=== PATIENT | female | born 1945 | race Caucasian/White ===

== ENCOUNTER → 2016-06-09 | Outpatient (CLI) | payer OTHER ==
[~2016-06-09] MED LIST: ACET-1311 PO; ADVIN25/60 INH; AMOX500C3 PO; BUME2TAB3 PO; CALC-51 PO; CALC0.2510 PO; CETI10TA84 PO; CHOL2000 PO; CHOL400T; CLR10 PO; CRAN1CAP15 PO; FERR1TAB62 PO; FLUT0.15 NAE; HYDR-3983 PO; HYDR-4079 PO; HYDR-5688 PO; LBT/300 PO; LIDOCAINE PATCH TOP; MISCCAP80 PO; NRN100 PO; NVLGI/PEN SQ; NYST1POW7 TOP; OMEP40CA41 PO; OXCA1TAB28 PO; PRLSR20 PO; PROM25TA9 PO; TRL300 PO; WARF-246 PO; WARF-281 PO; WARF4TAB PO; WARF5TAB90 PO
[2016-06-09 11:52] LABS: INR 2.1 (0.9-1.1); PROTHROMBIN TIME (PATIENT) 23.2 SECONDS (9.0-12.0)
== END | disposition home or self-care (01) ==
LOC: EDBD → C.LABSPEC 11:06
PROVIDERS: ATTEND Internal Medicine
DX: I48.91 Unspecified atrial fibrillation (principal)

== ENCOUNTER → 2016-06-23 | Outpatient (CLI) | payer OTHER ==
[~2016-06-23] MED LIST changes: -AMOX500C3 PO; -FERR1TAB62 PO; +FERR325T PO; -WARF-281 PO
[2016-06-23 12:15] LABS: INR 2.3 (0.9-1.1); PROTHROMBIN TIME (PATIENT) 25.5 SECONDS (9.0-12.0)
== END | disposition home or self-care (01) ==
LOC: EDBD → C.LABSPEC 11:41
PROVIDERS: ATTEND Internal Medicine
DX: I48.91 Unspecified atrial fibrillation (principal)

== ENCOUNTER → 2016-06-30 | Outpatient (CLI) | payer OTHER ==
[2016-06-30 10:14] LABS: PROTHROMBIN TIME (PATIENT) 22.1 SECONDS (9.0-12.0)
== END | disposition home or self-care (01) ==
LOC: EDBD → C.LABSPEC 09:38
PROVIDERS: ATTEND Internal Medicine
DX: I48.91 Unspecified atrial fibrillation (principal)

== ENCOUNTER → 2016-07-14 | Outpatient (CLI) | payer OTHER ==
[2016-07-14 11:12] LABS: PROTHROMBIN TIME (PATIENT) 21.6 SECONDS (9.0-12.0)
--- NOTE | 2016-07-28 13:54 | CODING QUERY NO DIAGNOSIS ---
Valid Physician Order Needed A valid physician order must be submitted in order to properly bill for the service(s) provided, including date of service(s), valid diagnosis, and physician signature. If these tests are done on a recurring basis the original physican order must be submitted in order to code and bill for the service(s) provided. Please fax us the original, signed physician order so that we may expedite billing to [phone] DOS 07/14/16 * PT/INR ORDERED BY DR. BAXTER Thank you Kandis [facility] Information Management
== END | disposition home or self-care (01) ==
LOC: EDBD → C.LABSPEC 10:08
PROVIDERS: ATTEND Internal Medicine
DX: L89.610 Pressure ulcer of right heel, unstageable (principal); I48.91 Unspecified atrial fibrillation; I13.2 Hypertensive heart and chronic kidney disease with heart failure and with stage 5 chronic kidney disease, or end stage renal disease; I50.9 Heart failure, unspecified

== ENCOUNTER → 2016-08-05 | Outpatient (CLI) | payer OTHER ==
--- NOTE | 2016-08-05 23:26 | PAP/PSG TECHNICIAN REPORT ---
[facility] Evaluation Specialist Polysomnogram Report Study name: None Report date: 08/05/2016 Study date: 08/05/2016 Referring Physician: Stanton Stephen M.D. Name: BEST KEVIN Evelyn Interpreting Physician: Stanton Stephen M.D. Date of : 1945 Evaluation Specialist: Ramona Berg RPS. Sex: Female Age: 71 StudyType: PSG Weight: 283 lbs Height: 71 years, Height 5' 0" Neck Circum: BMI: 55.26 Medications: See list in chart Patient History 71 yr. old female here for a new titration sleep study. Patient had a HST on 03/25/16 that showed an AHI of 21. Patients [place] sleepiness scale score is 9/24. Parameters Monitored NPSG: E1-M2, E2-M1, Fp1-M2, Fp2-M1, F3-M2, F4-M2, F4-M1, C3-M2, C4-M2, C4-M1, O1-M2, O2-M2, O2-M1, T3-M2, T4-M1, P3-M2, P4-M1, CHIN1, CHIN2, HR, EKG, Legs, PFLOW, SNOR, FLOW, CFLOW, Tidal Volume, THOR, ABDO, SpO2, PLTH, CPRESS, ETCO2 Wave, ETCO2, pH Sleep Architecture Sleep Stages Time at Lights Off 11:01:15 PM STAGES Time (min.) TST (%) Time at Lights On 11:24:45 PM Wake 9.5 -- Total Recording Time (TRT) 22.00 min. N1 5.0 40 Total Sleep Period (TSP) 18.0 min. N2 7.5 60 Total Sleep Time (TST) 12.5min. N3 0.0 0 Awake Time 9.5 min. REM 0.0 0 Wake after Sleep Onset 7.0 min. Sleep Efficiency (SE) 57 % Sleep Onset Latency (MERCEDES) 4.0 min. Number of Stage 1 Shifts None Awakenings 2 Stage Changes 9 Number of REM periods N/A REM 0.0 0 REM Latency NONE min. NREM 12.5 100 Body Position Analysis Supine Right Left Side Prone Vertical Total Sleep Time (min.) 22.0 0.0 0.0 0.00 0.0 0.0 Total Sleep Time (%) 100% 0% 0% 0 0% N/A% Total Sleep Time REM (min.) 0.0 0.0 0.0 None 0.0 0.0 Total Sleep Time NREM (min.) 12.5 0.0 0.0 None 0.0 0.0 Intermittent Wake (min.) 9.5 0.0 0.0 None 0.0 0.0 Total Sleep Period (%) 100% None None None None None Arousals Myoclonus (PLM) * Events Count Index Events Count Index Spontaneous 3 14 Events Awake (PLMW) 3 18.9 Respiratory 0 0.0 Events Asleep w/ Arousal (PLMA) 1 4.8 PLM 1 5 Events Asleep w/o Arousal (PLMS) 3 14.4 Snoring 0 0 Total Asleep 4 19.2 Total 4 19 Total 7 19 Respiratory Analysis * CA OA MA CH H RERA Total Count 0 0 0 0 0 0 0 Index 0.0 0.0 0.0 0 0.0 0 0.0 Mean Duration 0.0 0.0 0.0 0.00 0.0 0.0 0.0 Longest Duration 0.0 0.0 0.0 0.00 0.0 0.0 0.0 Respiratory Event Summary Total Supine ~Supine Right Left Prone REM NREM Apneas Count 0 0 N/A N/A N/A N/A N/A 0 Index 0.0 0 N/A N/A N/A N/A N/A 0 Hypopneas (4% Desat) Count 0 0 N/A N/A N/A N/A N/A 0 Index 0.0 0.0 N/A N/A N/A N/A N/A 0.0 Apneas & All Hypopneas Count 0 0 N/A N/A N/A N/A N/A 0 Index 0.0 0 N/A N/A N/A N/A N/A 0.0 Respiratory Events (Sustainability Coach+All Hyp+RERA) Count 0 0 N/A N/A N/A N/A N/A 0 Index 0.0 0 N/A N/A N/A N/A N/A 0.0 Respiratory Related Arousal Count 0 0 N/A N/A N/A N/A N/A 0 Index 0.0 0 N/A N/A N/A N/A N/A 0 Snoring Analysis Supine Right Left Prone REM NREM Total Snore duration 0.0 min Snores count 0 N/A N/A N/A N/A 0 0 Snore mean duration 0.0 Sec Snores index 0 N/A N/A N/A N/A 0.0 0.0 TST with snoring (%) 0.0% Desaturation Event Summary: Minimum %SpO2 Event Count Mean/Min/Max Duration(sec.) Desaturation Index % Time In Bed > 90 0 N/A 0.0 0.0 86 - 90 1 45.3 / 45.3 / 45.3 3.7 73.6 81 - 85 0 N/A 0.0 26.4 76 - 80 0 N/A 0.0 0.0 71 - 75 0 N/A 0.0 0.0 66 - 70 0 N/A 0.0 0.0 61 - 65 0 N/A 0.0 0.0 56 - 60 0 N/A 0.0 0.0 51 - 55 0 N/A 0.0 0.0 < 50 0 N/A 0.0 0.0 Total REM NREM Awake <50% 0.0 min. 0.0 min. 0.0 min. 0.0 min. 51 - 60% 0.0 min. 0.0 min. 0.0 min. 0.0 min. 61 - 70% 0.0 min. 0.0 min. 0.0 min. 0.0 min. 71 - 80% 0.0 min. 0.0 min. 0.0 min. 0.0 min. 81 - 90% 22.0 min. 0.0 min. 12.5 min. 9.5 min. 91 - 100% 0.0 min. 0.0 min. 0.0 min. 0.0 min. Average 86 0 86 87 Minimum SpO2 83 N/A 83 85 Desaturation Event Index 2.7 0.0 4.8 0.0 # Desat. Events below 89% 1 N/A 1 N/A Time(%) with Saturation below 89% 97.2 0.0 56.8 40.4 Time(min.) with Saturation below 89% 21.4 0.0 12.5 8.9 Time (mins) REM (mins) NREM (mins) % of TST SpO2 Below 90% 1 N/A N1 100.0 SpO2 Below 88% 1 0 0 95 Heart Rate Analysis Min (bpm) Max (bpm) Average (bpm) Awake 56 83 66 NREM 57 73 65 REM N/A N/A N/A Overall 57 73 65 Supplemental O2 Values Minimum O2 level: None Value Start Time End Time Evaluation Specialist Comments Therapy Event: Therapy (cm H20) 0 Total Time at Pressure (min.) 0.0 TST at Pressure (min.) 0.0 # Periods 1 Sleep Onset (min.) N/A REM Onset (min.) N/A Sleep Efficiency % N/A Wakefulness (%) 0.0 Wakefulness (min.) 0.0 NREM 1 (%) 0.0 NREM 1 (min.) 0.0 NREM 2 (%) 0.0 NREM 2 (min.) 0.0 NREM 3 (%) 0.0 NREM 3 (min.) 0.0 REM (%) 0.0 REM (min.) 0.0 # Arousals N/A Arousal Index N/A # Snore N/A Snore Index N/A AHI N/A AHI Supine N/A AHI Non-Supine N/A NREM AHI N/A REM AHI N/A RDI N/A # Obstructive N/A # Central Ap N/A # Mixed N/A # Hypopneas N/A RERAS N/A Total Respiratory Events N/A Time Below SpO2 89.00% (min.) 0.0 Mean NREM SpO2 (%) N/A Mean REM SpO2 (%) N/A Mean Sleep SpO2 (%) N/A Min NREM SpO2 (%) N/A Min REM SpO2 (%) N/A Position Supine (min.) 0.0 Position Non-supine (min.) 0.0 LM Index Sleep N/A LM Index NREM N/A LM Index REM N/A Mean Heart Rate (bpm) N/A Min Heart Rate (bpm) N/A
--- NOTE | 2016-08-06 04:33 | PAP/PSG TECHNICIAN REPORT ---
[facility] Tax Economist Polysomnogram Report Study name: None Report date: 08/06/2016 Study date: 08/05/2016 Referring Physician: Stanton Stephen M.D. Name: BEST KEVIN Evelyn Interpreting Physician: Stanton Stephen M.D. Date of : 1945 Tax Economist: Ramona Berg RPS. Sex: Female Age: 71 StudyType: PSG Weight: 283 lbs Height: 71 years, Height 5' 0" Neck Circum: BMI: 55.26 Medications: See list in chart Patient History 71 yr. old female here for a new titration sleep study. Patient had a HST on 03/25/16 that showed an AHI of 21. Patients [place] sleepiness scale score is 9/24. Parameters Monitored NPSG: E1-M2, E2-M1, Fp1-M2, Fp2-M1, F3-M2, F4-M2, F4-M1, C3-M2, C4-M2, C4-M1, O1-M2, O2-M2, O2-M1, T3-M2, T4-M1, P3-M2, P4-M1, CHIN1, CHIN2, HR, EKG, Legs, PFLOW, SNOR, FLOW, CFLOW, Tidal Volume, THOR, ABDO, SpO2, PLTH, CPRESS, ETCO2 Wave, ETCO2, pH Sleep Architecture Sleep Stages Time at Lights Off 11:01:15 PM STAGES Time (min.) TST (%) Time at Lights On 4:31:45 AM Wake 9.5 -- Total Recording Time (TRT) 330.00 min. N1 5.0 2 Total Sleep Period (TSP) 326.0 min. N2 147.0 46 Total Sleep Time (TST) 320.5min. N3 72.0 22 Awake Time 9.5 min. REM 96.5 30 Wake after Sleep Onset 6.0 min. Sleep Efficiency (SE) 97 % Sleep Onset Latency (MERCEDES) 4.0 min. Number of Stage 1 Shifts None Awakenings 2 Stage Changes 23 Number of REM periods 2 REM 96.5 30 REM Latency 47.5 min. NREM 224.0 70 Body Position Analysis Supine Right Left Side Prone Vertical Total Sleep Time (min.) 330.0 0.0 0.0 0.00 0.0 0.0 Total Sleep Time (%) 100% 0% 0% 0 0% N/A% Total Sleep Time REM (min.) 96.5 0.0 0.0 None 0.0 0.0 Total Sleep Time NREM (min.) 224.0 0.0 0.0 None 0.0 0.0 Intermittent Wake (min.) 9.5 0.0 0.0 None 0.0 0.0 Total Sleep Period (%) 100% None None None None None Arousals Myoclonus (PLM) * Events Count Index Events Count Index Spontaneous 3 1 Events Awake (PLMW) 3 18.9 Respiratory 1 0.2 Events Asleep w/ Arousal (PLMA) 4 0.7 PLM 4 1 Events Asleep w/o Arousal (PLMS) 80 15.0 Snoring 0 0 Total Asleep 84 15.7 Total 8 1 Total 87 16 Respiratory Analysis * CA OA MA CH H RERA Total Count 0 0 0 0 28 1 28 Index 0.0 0.0 0.0 0 5.2 0 5.4 Mean Duration 0.0 0.0 0.0 0.00 33.1 17.9 32.6 Longest Duration 0.0 0.0 0.0 0.00 0.0 17.9 54.7 Respiratory Event Summary Total Supine ~Supine Right Left Prone REM NREM Apneas Count 0 0 N/A N/A N/A N/A 0 0 Index 0.0 0 N/A N/A N/A N/A 0 0 Hypopneas (4% Desat) Count 28 28 N/A N/A N/A N/A 21 7 Index 5.2 5.2 N/A N/A N/A N/A 13.1 1.9 Apneas & All Hypopneas Count 28 28 N/A N/A N/A N/A 21 7 Index 5.2 5 N/A N/A N/A N/A 13.1 1.9 Respiratory Events (Clay Miner+All Hyp+RERA) Count 28 29 N/A N/A N/A N/A 21 7 Index 5.4 5 N/A N/A N/A N/A 13.1 2.1 Respiratory Related Arousal Count 1 29 N/A N/A N/A N/A 0 1 Index 0.2 0 N/A N/A N/A N/A 0 0 Snoring Analysis Supine Right Left Prone REM NREM Total Snore duration 0.0 min Snores count 0 N/A N/A N/A 0 0 0 Snore mean duration 0.0 Sec Snores index 0 N/A N/A N/A 0.0 0.0 0.0 TST with snoring (%) 0.0% Desaturation Event Summary: Minimum %SpO2 Event Count Mean/Min/Max Duration(sec.) Desaturation Index % Time In Bed > 90 8 33.8 / 21.0 / 43.3 8.4 17.3 86 - 90 19 32.2 / 9.3 / 53.3 4.8 71.6 81 - 85 10 28.8 / 9.3 / 45.5 18.9 9.6 76 - 80 1 35.8 / 35.8 / 35.8 12.6 1.4 71 - 75 0 N/A 0.0 0.0 66 - 70 0 N/A 0.0 0.0 61 - 65 0 N/A 0.0 0.0 56 - 60 0 N/A 0.0 0.0 51 - 55 0 N/A 0.0 0.0 < 50 0 N/A 0.0 0.0 Total REM NREM Awake <50% 0.0 min. 0.0 min. 0.0 min. 0.0 min. 51 - 60% 0.0 min. 0.0 min. 0.0 min. 0.0 min. 61 - 70% 0.0 min. 0.0 min. 0.0 min. 0.0 min. 71 - 80% 4.7 min. 4.7 min. 0.0 min. 0.0 min. 81 - 90% 267.3 min. 86.2 min. 171.6 min. 9.5 min. 91 - 100% 56.8 min. 5.5 min. 51.3 min. 0.0 min. Average 89 87 89 87 Minimum SpO2 76 76 81 85 Desaturation Event Index 4.9 11.8 2.1 0.0 # Desat. Events below 89% 27 19 8 N/A Time(%) with Saturation below 89% 34.2 15.9 15.6 2.7 Time(min.) with Saturation below 89% 112.4 52.1 51.3 8.9 Time (mins) REM (mins) NREM (mins) % of TST SpO2 Below 90% 27 19 N8 54.6 SpO2 Below 88% 15 0 0 22 Heart Rate Analysis Min (bpm) Max (bpm) Average (bpm) Awake 56 83 66 NREM 48 79 64 REM 51 80 65 Overall 48 80 64 Supplemental O2 Values Minimum O2 level: None Value Start Time End Time Tax Economist Comments Mrs. Diaz slept in supine position with her head elevated. Cardiac arrhythmia and PLMs noted. No bruxism noted. CPAP was initiated at +4 CMH2O room air. At 11:23 am Mrs. Diaz'alina oxygen was running uner 85% for five minutes and 1 lpm 02 was added. Mrs. Diaz was up-titrated to a level of + 8 CMH2O Cflex 2. . A small paul and [employer] Simplus was used during titration. Mr. Karl Manzano. awoke to use the restroom ____ times during the night. Mr. Karl Manzano. stated, "(Example) I did not sleep as well as I do when I am in my own bed". The final report will be interpreted and signed by a sleep physician. The completed physician report will then be placed in the patient medical record. Therapy Event: Therapy (cm H20) 0 4 5 6 7 8 Total Time at Pressure (min.) 6.7 22.4 25.9 21.1 131.8 122.2 TST at Pressure (min.) 6.7 12.9 25.9 21.1 131.8 122.2 # Periods 2 1 1 1 1 1 Sleep Onset (min.) 0.0 4.0 0.0 0.0 0.0 0.0 REM Onset (min.) N/A N/A 22.4 0.0 0.0 0.0 Sleep Efficiency % 100 57 100 100 100 100 Wakefulness (%) 0.0 42.4 0.0 0.0 0.0 0.0 Wakefulness (min.) 0.0 9.5 0.0 0.0 0.0 0.0 NREM 1 (%) 0.0 22.3 0.0 0.0 0.0 0.0 NREM 1 (min.) 0.0 5.0 0.0 0.0 0.0 0.0 NREM 2 (%) 100.0 35.3 80.7 0.0 33.8 54.8 NREM 2 (min.) 6.7 7.9 20.9 0.0 44.5 67.0 NREM 3 (%) 0.0 0.0 5.8 0.0 44.8 9.4 NREM 3 (min.) 0.0 0.0 1.5 0.0 59.0 11.5 REM (%) 0.0 0.0 13.5 100.0 21.5 35.7 REM (min.) 0.0 0.0 3.5 21.1 28.3 43.7 # Arousals 0 5 2 0 0 1 Arousal Index 0.0 23.2 4.6 0.0 0.0 0.5 # Snore 0 0 0 0 0 0 Snore Index 0.0 0.0 0.0 0.0 0.0 0.0 AHI 17.9 4.6 18.6 31.3 2.7 0.0 AHI Supine 17.9 4.6 18.6 31.3 2.7 0.0 AHI Non-Supine N/A N/A N/A N/A N/A N/A NREM AHI 17.9 4.6 10.7 N/A 0.0 0.0 REM AHI N/A N/A 68.7 31.3 12.7 0.0 RDI 17.9 4.6 20.9 31.3 2.7 0.0 # Obstructive 0 0 0 0 0 0 # Central Ap 0 0 0 0 0 0 # Mixed 0 0 0 0 0 0 # Hypopneas 2 1 8 11 6 0 RERAS 0 0 1 0 0 0 Total Respiratory Events 2 1 9 11 6 0 Time Below SpO2 89.00% (min.) 6.7 12.9 16.0 18.9 27.4 21.5 Mean NREM SpO2 (%) 85 86 88 N/A 90 90 Mean REM SpO2 (%) N/A N/A 87 83 86 89 Mean Sleep SpO2 (%) 85 86 88 83 89 89 Min NREM SpO2 (%) 81 83 83 N/A 87 87 Min REM SpO2 (%) N/A N/A 80 76 79 84 Position Supine (min.) 6.7 12.9 25.9 21.1 131.8 122.2 Position Non-supine (min.) 0.0 0.0 0.0 0.0 0.0 0.0 LM Index Sleep 0.0 27.9 16.2 31.3 8.7 20.1 LM Index NREM 0.0 27.9 8.0 N/A 8.7 27.5 LM Index REM N/A N/A 68.7 31.3 8.5 6.9 Mean Heart Rate (bpm) 65 65 65 65 64 64 Min Heart Rate (bpm) 59 57 54 56 49 48
--- NOTE | 2016-08-06 06:44 | PAP/PSG TECHNICIAN REPORT ---
[facility] Taxi Dancer Polysomnogram Report Study name: None Report date: 08/06/2016 Study date: 08/05/2016 Referring Physician: Stanton Stephen M.D. Name: BEST KEVIN Evelyn Interpreting Physician: Stanton Stephen M.D. Date of : 1945 Taxi Dancer: Ramona Berg RPS. Sex: Female Age: 71 StudyType: PSG Weight: 283 lbs Height: 71 years, Height 5' 0" BMI: 55.26 Medications: See list in chart Patient History 71 yr. old female here for a new titration sleep study. Patient had a HST on 03/25/16 that showed an AHI of 21. Patients [place] sleepiness scale score is 9/24. Parameters Monitored NPSG: E1-M2, E2-M1, Fp1-M2, Fp2-M1, F3-M2, F4-M2, F4-M1, C3-M2, C4-M2, C4-M1, O1-M2, O2-M2, O2-M1, T3-M2, T4-M1, P3-M2, P4-M1, CHIN1, CHIN2, HR, EKG, Legs, PFLOW, SNOR, FLOW, CFLOW, Tidal Volume, THOR, ABDO, SpO2, PLTH, CPRESS, ETCO2 Wave, ETCO2, pH Sleep Architecture Sleep Stages Time at Lights Off 11:01:15 PM STAGES Time (min.) TST (%) Time at Lights On 5:50:45 AM Wake 9.5 -- Total Recording Time (TRT) 409.50 min. N1 5.0 1 Total Sleep Period (TSP) 405.5 min. N2 151.0 38 Total Sleep Time (TST) 400.0min. N3 109.0 27 Awake Time 9.5 min. REM 135.0 34 Wake after Sleep Onset 5.5 min. Sleep Efficiency (SE) 98 % Sleep Onset Latency (MERCEDES) 4.0 min. Number of Stage 1 Shifts None Awakenings 2 Stage Changes 26 Number of REM periods 3 REM 135.0 34 REM Latency 47.5 min. NREM 265.0 66 Body Position Analysis Supine Right Left Side Prone Vertical Total Sleep Time (min.) 409.5 0.0 0.0 0.00 0.0 0.0 Total Sleep Time (%) 100% 0% 0% 0 0% N/A% Total Sleep Time REM (min.) 135.0 0.0 0.0 None 0.0 0.0 Total Sleep Time NREM (min.) 265.0 0.0 0.0 None 0.0 0.0 Intermittent Wake (min.) 9.5 0.0 0.0 None 0.0 0.0 Total Sleep Period (%) 100% None None None None None Arousals Myoclonus (PLM) * Events Count Index Events Count Index Spontaneous 3 0 Events Awake (PLMW) 3 18.9 Respiratory 1 0.2 Events Asleep w/ Arousal (PLMA) 6 0.9 PLM 6 1 Events Asleep w/o Arousal (PLMS) 90 13.5 Snoring 0 0 Total Asleep 96 14.4 Total 10 2 Total 99 15 Respiratory Analysis * CA OA MA CH H RERA Total Count 0 0 0 0 32 1 32 Index 0.0 0.0 0.0 0 4.8 0 5.0 Mean Duration 0.0 0.0 0.0 0.00 31.7 17.9 31.3 Longest Duration 0.0 0.0 0.0 0.00 0.0 17.9 54.7 Respiratory Event Summary Total Supine ~Supine Right Left Prone REM NREM Apneas Count 0 0 N/A N/A N/A N/A 0 0 Index 0.0 0 N/A N/A N/A N/A 0 0 Hypopneas (4% Desat) Count 32 32 N/A N/A N/A N/A 24 8 Index 4.8 4.8 N/A N/A N/A N/A 10.7 1.8 Apneas & All Hypopneas Count 32 32 N/A N/A N/A N/A 24 8 Index 4.8 5 N/A N/A N/A N/A 10.7 1.8 Respiratory Events (Finishing Range Feeder+All Hyp+RERA) Count 32 33 N/A N/A N/A N/A 24 8 Index 5.0 5 N/A N/A N/A N/A 10.7 2.0 Respiratory Related Arousal Count 1 33 N/A N/A N/A N/A 0 1 Index 0.2 0 N/A N/A N/A N/A 0 0 Snoring Analysis Supine Right Left Prone REM NREM Total Snore duration 0.0 min Snores count 0 N/A N/A N/A 0 0 0 Snore mean duration 0.0 Sec Snores index 0 N/A N/A N/A 0.0 0.0 0.0 TST with snoring (%) 0.0% Desaturation Event Summary: Minimum %SpO2 Event Count Mean/Min/Max Duration(sec.) Desaturation Index % Time In Bed > 90 11 34.0 / 21.0 / 43.3 5.7 28.5 86 - 90 20 31.2 / 9.3 / 53.3 4.7 62.5 81 - 85 10 28.8 / 9.3 / 45.5 18.9 7.8 76 - 80 1 35.8 / 35.8 / 35.8 12.6 1.2 71 - 75 0 N/A 0.0 0.0 66 - 70 0 N/A 0.0 0.0 61 - 65 0 N/A 0.0 0.0 56 - 60 0 N/A 0.0 0.0 51 - 55 0 N/A 0.0 0.0 < 50 0 N/A 0.0 0.0 Total REM NREM Awake <50% 0.0 min. 0.0 min. 0.0 min. 0.0 min. 51 - 60% 0.0 min. 0.0 min. 0.0 min. 0.0 min. 61 - 70% 0.0 min. 0.0 min. 0.0 min. 0.0 min. 71 - 80% 4.7 min. 4.7 min. 0.0 min. 0.0 min. 81 - 90% 287.9 min. 106.1 min. 172.3 min. 9.5 min. 91 - 100% 116.8 min. 24.1 min. 92.7 min. 0.0 min. Average 89 88 90 87 Minimum SpO2 76 76 81 85 Desaturation Event Index 4.5 10.2 1.8 0.0 # Desat. Events below 89% 30 22 8 N/A Time(%) with Saturation below 89% 28.7 14.0 12.5 2.2 Time(min.) with Saturation below 89% 117.5 57.3 51.3 8.9 Time (mins) REM (mins) NREM (mins) % of TST SpO2 Below 90% 31 23 N8 46.5 SpO2 Below 88% 16 0 0 18 Heart Rate Analysis Min (bpm) Max (bpm) Average (bpm) Awake 56 83 66 NREM 48 79 64 REM 49 80 65 Overall 48 80 64 Supplemental O2 Values Minimum O2 level: None Value Start Time End Time Taxi Dancer Comments Mrs. Diaz slept in supine position with her head elevated. Cardiac arrhythmia and PLMs noted. No bruxism noted. CPAP was initiated at +4 CMH2O room air. At 11:23 am Mrs. Diaz's oxygen was consistently running under 85% and 1 lpm 02 was added. Mrs. Diaz was up-titrated to a level of + 8 CMH2O Cflex 2. At 4:30am she was on a pressure of + 8 CMH2O Cflex 2 for 122.2 minutes with an AHI of zero, and was under 89% for 21.5 minutes, at this time she was increased to 2 lpm 02. A small [employer] Simplus was used during titration. Mrs. Diaz did not wake to use the restroom during the night. The final report will be interpreted and signed by a sleep physician. The completed physician report will then be placed in the patient medical record. Therapy Event: Therapy (cm H20) 0 4 5 6 7 8 Total Time at Pressure (min.) 6.7 22.4 25.9 21.1 131.8 201.7 TST at Pressure (min.) 6.7 12.9 25.9 21.1 131.8 201.7 # Periods 2 1 1 1 1 1 Sleep Onset (min.) 0.0 4.0 0.0 0.0 0.0 0.0 REM Onset (min.) N/A N/A 22.4 0.0 0.0 0.0 Sleep Efficiency % 100 57 100 100 100 100 Wakefulness (%) 0.0 42.4 0.0 0.0 0.0 0.0 Wakefulness (min.) 0.0 9.5 0.0 0.0 0.0 0.0 NREM 1 (%) 0.0 22.3 0.0 0.0 0.0 0.0 NREM 1 (min.) 0.0 5.0 0.0 0.0 0.0 0.0 NREM 2 (%) 100.0 35.3 80.7 0.0 33.8 35.2 NREM 2 (min.) 6.7 7.9 20.9 0.0 44.5 71.0 NREM 3 (%) 0.0 0.0 5.8 0.0 44.8 24.0 NREM 3 (min.) 0.0 0.0 1.5 0.0 59.0 48.5 REM (%) 0.0 0.0 13.5 100.0 21.5 40.7 REM (min.) 0.0 0.0 3.5 21.1 28.3 82.2 # Arousals 0 5 2 0 0 3 Arousal Index 0.0 23.2 4.6 0.0 0.0 0.9 # Snore 0 0 0 0 0 0 Snore Index 0.0 0.0 0.0 0.0 0.0 0.0 AHI 17.9 4.6 18.6 31.3 2.7 1.2 AHI Supine 17.9 4.6 18.6 31.3 2.7 1.2 AHI Non-Supine N/A N/A N/A N/A N/A N/A NREM AHI 17.9 4.6 10.7 N/A 0.0 0.5 REM AHI N/A N/A 68.7 31.3 12.7 2.2 RDI 17.9 4.6 20.9 31.3 2.7 1.2 # Obstructive 0 0 0 0 0 0 # Central Ap 0 0 0 0 0 0 # Mixed 0 0 0 0 0 0 # Hypopneas 2 1 8 11 6 4 RERAS 0 0 1 0 0 0 Total Respiratory Events 2 1 9 11 6 4 Time Below SpO2 89.00% (min.) 6.7 12.9 16.0 18.9 27.4 26.7 Mean NREM SpO2 (%) 85 86 88 N/A 90 90 Mean REM SpO2 (%) N/A N/A 87 83 86 90 Mean Sleep SpO2 (%) 85 86 88 83 89 90 Min NREM SpO2 (%) 81 83 83 N/A 87 87 Min REM SpO2 (%) N/A N/A 80 76 79 84 Position Supine (min.) 6.7 12.9 25.9 21.1 131.8 201.7 Position Non-supine (min.) 0.0 0.0 0.0 0.0 0.0 0.0 LM Index Sleep 0.0 27.9 16.2 31.3 8.7 15.8 LM Index NREM 0.0 27.9 8.0 N/A 8.7 20.6 LM Index REM N/A N/A 68.7 31.3 8.5 8.8 Mean Heart Rate (bpm) 65 65 65 65 64 64 Min Heart Rate (bpm) 59 57 54 56 49 48
--- NOTE | 2016-08-07 18:04 | POLYSOMNOGRAPH REPORT ---
CLINICAL DATA: A 71-year-old female with BMI of 55.26 referred for a CPAP titration study. She had a home sleep apnea test performed on 03/25/2016 which showed moderate sleep apnea with an AHI of 21. Her primary care physician is Dr. Espino. SLEEP ARCHITECTURE: Total sleep period was 405.5 minutes. Total sleep time was 400 minutes divided between 265 minutes of non-REM sleep and 135 minutes of REM sleep. Sleep onset latency was 4 minutes. REM latency was 47.5 minutes. Sleep efficiency was 98%. Wake after sleep onset was 5.5 minutes. Sleep consisted of stage N1 1%, stage N2 38%, stage N3 27%, REM 34%. AROUSAL DATA: Ten arousals were recorded for an index of 2 per hour. PERIODIC LIMB MOVEMENTS DATA: 96 limb movements during sleep were noted for an index of 14.4 per hour with arousal index of 0.9 per hour. RESPIRATORY DATA: The AHI was 4.8. There were 32 hypopneic episodes, the mean duration of which was 31.7 seconds. OXIMETRY DATA: Nocturnal hypoxemia was seen. Oxygen pedro was 76% during REM. The mean saturation was 89%. Time below 88% was 16 minutes. EKG: Heart rates ranged from 48-79 beats per minute. 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 She was started on CPAP but continued to have nocturnal hypoxemia. In spite of treatment with CPAP at 8 cm of water pressure and C-Flex setting #2 for 122 minutes with an AHI of 0, the patient had O2 saturation less than 89% for 21.5 minutes. At that time, she was increased to 2 liters per minute oxygen. A small Eli[employer] Simplus mask was used during the titration. At her final pressure setting, the patient slept for 201.7 minutes with an AHI of 1.2. IMPRESSION: Moderate sleep apnea/hypopnea and nocturnal hypoxemia corrected with CPAP 8 cm of water pressure, C-Flex setting #2, O2 2 liters per minute with a small Eli[employer] Simplus mask. RECOMMENDATIONS: The patient should be started on the above noted treatment regimen and seen back in followup within 90 days to document efficacy and compliance. [facility]
== END | disposition home or self-care (01) ==
LOC: EDBD → C.NEUR 21:00
PROVIDERS: ATTEND Internal Medicine Pulmonary Disease
DX: G47.33 Obstructive sleep apnea (adult) (pediatric) (principal); E66.01 Morbid (severe) obesity due to excess calories; R09.02 Hypoxemia; Z68.43 Body mass index [BMI] 50.0-59.9, adult

== ENCOUNTER → 2016-08-11 | Outpatient (CLI) | payer OTHER ==
[~2016-08-11] MED LIST changes: +AMOX500C3 PO; +FERR1TAB62 PO; -FERR325T PO; +WARF-281 PO
[2016-08-11 13:59] LABS: PROTHROMBIN TIME (PATIENT) 21.5 SECONDS (9.0-12.0)
--- NOTE | 2016-08-12 09:54 | CODING QUERY NO DIAGNOSIS ---
Valid Physician Order Needed A valid physician order must be submitted in order to properly bill for the service(s) provided, including date of service(s), valid diagnosis, and physician signature. If these tests are done on a recurring basis the original physican order must be submitted in order to code and bill for the service(s) provided. Please fax us the original, signed physician order so that we may expedite billing to [phone] DOS 08/11/2016 * PT/INR * WOUND CULTURE, SURFACE AND GS Thank you Nila [facility] Information Management
--- NOTE | 2016-09-08 06:22 | CODING QUERY NO DIAGNOSIS ---
TREATMENT RENDERED WITHOUT A DIAGNOSIS To promote full compliance with coding requirements relating to patient care, physician participation is requested in all cases of account support analyst uncertainty. Please assist us with providing a diagnosis/symptom for the test(s) below: A diagnosis/symptom was not documented on your Order. A valid diagnosis/symptom is required to bill all insurances. Please remember that we are unable to code a diagnosis of rule out, probable, possible, questionable, or suspected. Tests that require a diagnosis: DOS: 08/11/16 * PT/INR DIAGNOSIS: * WOUND CULTURE, SURFACE AND GS DIAGNOSIS: Provider Signature: Date: Thank you Nila [facility] Information Management Once completed, please kindly fax back to [phone] For questions please call [phone]
== END | disposition home or self-care (01) ==
LOC: C.LABSPEC 12:52
PROVIDERS: ATTEND Internal Medicine
DX: I48.91 Unspecified atrial fibrillation (principal)

== ENCOUNTER → 2016-08-13 | Outpatient (CLI) | payer OTHER ==
[~2016-08-13] MED LIST changes: -AMOX500C3 PO; -FERR1TAB62 PO; +FERR325T PO; -WARF-281 PO
== END | disposition home or self-care (01) ==
LOC: C.LABSPEC 10:45
PROVIDERS: ATTEND Nurse Practitioner Family
DX: N39.0 Urinary tract infection, site not specified (principal)

== ENCOUNTER 2016-08-22 19:01 | Emergency (ER) | payer OTHER ==
[~2016-08-22] VITALS: Ht 142.2 cm; Wt 230.0 kg
[~2016-08-22 19:01] MED LIST changes: -ACET-1311 PO; -ADVIN25/60 INH; -AMOX500C3 PO; -CALC-51 PO; -CALC0.2510 PO; -CETI10TA84 PO; -CHOL400T; -CLR10 PO; -CRAN1CAP15 PO; -FERR1TAB62 PO; +FERR325T PO; -FLUT0.15 NAE; -HYDR-3983 PO; -HYDR-4079 PO; -LIDOCAINE PATCH TOP; -MISCCAP80 PO; -NYST1POW7 TOP; -OMEP40CA41 PO; -OXCA1TAB28 PO; -PROM25TA9 PO; -WARF-246 PO; -WARF-281 PO; -WARF5TAB90 PO
[2016-08-22 19:05] VITALS: TEMP 36.9; Ht 142.2 cm; Wt 230.0 kg
[2016-08-22 20:18] LABS: HEMATOCRIT 34.1 % (37-47); MEAN CELL VOLUME 102.1 fL (80-100); MEAN CORPUSCULAR HEMOGLOBIN 32.3 pg (25-34); MEAN CORPUSCULAR HGB CONC 31.7 g/dl (32-36); PLATELET COUNT 146 K/uL (130-400); RED BLOOD COUNT 3.34 M/uL (4.2-5.4); WHITE BLOOD COUNT 5.21 K/uL (4.8-10.8)
[2016-08-22 20:34] LABS: INR 3.2 (0.9-1.1); PARTIAL THROMBOPLASTIN RATIO 1.9; PROTHROMBIN TIME (PATIENT) 35.5 SECONDS (9.0-12.0)
--- NOTE | 2016-08-22 20:57 | EMERGENCY ROOM VISIT NOTE ---
History Report prepared by Gelacio: Kristy Byrnes Under the Supervision of: Dr. Kennedy Min M.D. First contact with patient: 20:03 Chief Complaint: RECTAL BLEEDING Stated Complaint: BLEEDING FROM RECTUM/VAGINAL AREA Nursing Triage Summary: Patient reports that she is currently on coumadin. Reports that she had some vaginal and rectal bleeding today (once) after using the restroom. Reports small amounts of bright red blood was present on toliet paper. Denies clots. Denies any pain or any s/s related to the bleeding. States that her coumadin levels have not been checked since 08/11 and they are to be checked weekly. History of Present Illness The patient is a 71 year old female who presents to the Emergency Room with complaints of persistent vaginal bleeding today. This is the first time she has experienced this. She was recently diagnosed with a UTI for which she is taking antibiotics. She denies any abdominal pain, SOB, or bloody stools. The patient fell on 2 days ago and got a wound on her arm. She reports that it is still bleeding. The home health nurse suggested that she go to the ED to check her Coumadin levels. The patient is on dialysis. She reports that she will get a bladder flush 3 days from now with the urologist. Source of History: patient Onset: today Position: other (vaginal) Quality: other (bleeding) Timing: other (persistent) Associated Symptoms: No SOB, No abdominal pain, No hematochezia, No melena Review of Systems See HPI for pertinent positives & negatives. A total of 10 systems reviewed and were otherwise negative. Past Medical & Surgical Medical Problems: (1) Acute kidney injury (2) Carpal tunnel syndrome (3) CHF exacerbation (4) CKD (chronic kidney disease) stage 3, GFR 30-59 ml/min (5) Diabetes (6) Fever (7) HTN (hypertension) (8) Hypoalbuminemia (9) Hypokalemia due to loss of potassium (10) Leukocytosis (11) Proteinuria (12) Trigeminal neuralgia Family History Cancer Social History Smoking Status: Never Smoker Alcohol Use: none Drug Use: none Marital Status: Housing Status: lives with significant other Occupation Status: retired Current/Historical Medications Scheduled Bumetanide (Bumex), 2 MG PO DAILY Calcium Carbonate-Vitamin D (Calcium), 1 TAB PO BID Cholecalciferol (Vitamin D3), 2,000 INTER.UNIT PO BID Cranberry-Vitamin C-Vitamin E (Cranberry), 1 CAP PO BID Ferrous Sulfate (Ferrous Sulfate), 325 MG PO -- Fluticasone Prop/Salmeterol (Advair Diskus 250/50 60 Dose), 1 PUFF INH BID Gabapentin (Gabapentin), 200 MG PO TID Labetalol Hcl (Normodyne), 300 MG PO TID Loratadine (Claritin), 10 MG PO DAILY Nystatin (Topical) (Nystatin), 1 APPLN TOP PRN Omeprazole (Prilosec), 40 MG PO QAM Oxcarbazepine (Oxcarbazepine), 150 MG PO BID Probiotic Product (Probiotic), 1 CAP PO DAILY Warfarin Sodium (Coumadin), 7.5 MG PO WED Warfarin Sodium (Coumadin), 5 MG PO [id number] Scheduled PRN Acetaminophen (Tylenol), 650 MG PO Q4 PRN for Pain or Fever Fluticasone Propionate (Nasal) (Flonase Allergy Relief), 1 SPRAY MO BID PRN for Nasal Congestion Hydrocodone/Acetaminophen 7.5MG/325MG ([place] 7.5MG/325MG), 1-2 TAB PO Q6 PRN for Pain [Lidocaine Patch], 1 PATCH TOP DAILY PRN for Pain Allergies Coded Allergies: ANGEL Inhibitors (Verified Allergy, Unknown, unknown, 05/19/16) Doxycycline (Verified Allergy, Unknown, unknown, 05/19/16) Escitalopram (Verified Allergy, Unknown, unknown, 05/19/16) Homatropine (Verified Allergy, Unknown, unknown, 03/05/16) Metformin (Verified Allergy, Unknown, unknown, 05/19/16) Pioglitazone (Verified Allergy, Unknown, ? NOT SURE, 05/19/16) Rosiglitazone (Verified Allergy, Unknown, NOT SURE, 05/19/16) Simvastatin (Verified Allergy, Unknown, unknown, 05/19/16) Statins (Verified Adverse Reaction, Intermediate, LEGS HURT, 05/19/16) Ciprofloxacin (Verified Adverse Reaction, Mild, UPSET STOMACH, 05/19/16) Levofloxacin (Verified Adverse Reaction, Mild, ?NAUSEA, 05/19/16) Uncoded Allergies: UNKNOWN ANTI-BIOTIC (Allergy, Severe, SHAKING, 10/05/15) CAT GUT SUTURES (Allergy, Intermediate, SLOW HEALING,INFLAMED TISSUE, ) Physical Exam Vital Signs Date Time Temp Pulse Resp B/P Pulse Ox O2 Delivery O2 Flow Rate FiO2 08/22/16 21:06 66 20 128/88 92 08/22/16 20:09 69 08/22/16 19:05 36.9 72 22 138/59 91 Room Air Physical Exam GENERAL: Patient is well appearing and in no acute distress. HEENT: No acute trauma, normocephalic atraumatic, mucous membranes moist, no nasal congestion, no scleral icterus. NECK: No stridor, no adenopathy, no meningismus, trachea is midline. LUNGS: No dyspnea. Clear to auscultation and equal bilaterally. No wheeze, no rhonchi. HEART: Regular rate and rhythm. No murmurs, rubs, gallops appreciated. ABDOMEN: Soft, nontender, bowel sounds positive, no masses appreciated, no peritonitis. BACK: No midline tenderness, no CVA tenderness EXTREMITIES: Normal motion all extremities, no cyanosis, no edema. Bruising on the left hand. Dressed wound on the right arm. NEUROLOGIC: Alert and oriented, no acute motor or sensory deficits, no focal weakness, cranial nerves grossly intact. SKIN: No rash, no jaundice, no diaphoresis. Medical Decision & Procedures Laboratory Results 08/22/16 19:14 Test 08/22/16 19:14 Red Blood Count 3.34 M/uL (4.2-5.4) Mean Corpuscular Volume 102.1 fL (80-100) Mean Corpuscular Hemoglobin 32.3 pg (25-34) Mean Corpuscular Hemoglobin Concent 31.7 g/dl (32-36) RDW Standard Deviation 58.7 fL (36.4-46.3) RDW Coefficient of Variation 15.6 % (11.5-14.5) Mean Platelet Volume 9.0 fL (7.4-10.4) Prothrombin Time 35.5 SECONDS (9.0-12.0) Prothromb Time International Ratio 3.2 (0.9-1.1) Activated Partial Thromboplast Time 48.1 SECONDS (21.0-31.0) Partial Thromboplastin Ratio 1.9 Laboratory results as reviewed by me. Medications Administered Medications (Trade) Dose Ordered Sig/Kurt Route Start Time Stop Time Status Last Admin Dose Admin Cephalexin Monohydrate (Keflex Cap) 500 mg NOW ONCE PO 08/22/16 21:00 08/22/16 21:01 DC 08/22/16 21:02 500 MG ED Course 2005: The patient was evaluated in room A4. A complete history and physical exam was performed. 2100: Keflex Cap 500 mg PO. 2103: I reevaluated the patient. She is feeling great. She would not like any further examination and would like to go home. I discussed results and discharge instructions: she verbalized understanding and agreement. The patient is ready for discharge. Medical Decision 71 yr old female with scant bleeding single time from vagina or possible urine. Also noted red blood on wiping rectum but no blood in stool. She refuses full examination. She is no interested in imaging. Purely wished to have INR checked which is mildly above the 2-3 INR she notes her goal to be for afib. She has no current bleeding per patient. Discussed how dangerous and concerning vaginal bleeding in her age group is. HgB is normal and platelets similar to previous. No evidence infection. Starting abx tomorrow morning for UTI thus given initial Keflex (she is unsure what med she is going to be on). Stable breathing comfortably and wants to get home. She was advised to decrease to 7.5 mg Coumadin over next two days from usual 10mg. Impression Primary Impression: Bleeding Additional Impression: Elevated INR Scribe Attestation The scribe's documentation has been prepared under my direction and personally reviewed by me in its entirety. I confirm that the note above accurately reflects all work, treatment, procedures, and medical decision making performed by me. Departure Information Dispostion Home / Self-Care Referrals Roderick Espino M.D. (PCP) Patient Instructions My [facility] Additional Instructions Your INR (coumadin level) was 3.2 today. This is mildly above where you should be and is likely cause of some easy bleeding. Take 7.5mg Coumadin tonight and tomorrow night, instead of the normal 10mg. Follow up with you Doctor to discuss further Coumadin management. Return immediately if any further bleeding, heavy bleeding, passing out or other concerns. Problem Qualifiers
[2016-08-22] MEDS ORDERED: CEPHALEXIN MONOHYDRATE 250 MG CAP PO ONE (21:00)
[2016-08-22 21:06] VITALS: BP 128/88; PULSE 66; O2SAT 92
[2016-08-22] MEDS ORDERED: LIDOCAINE PATCH TOP (21:06)
[2016-08-22] MEDS ORDERED: CALC-51 PO (21:06)
[2016-08-22] MEDS ORDERED: CLR10 PO (21:06)
[2016-08-22] MEDS ORDERED: CHOL400T (21:06)
[2016-08-22] MEDS ORDERED: MISCCAP80 PO (21:06)
[2016-08-22] MEDS ORDERED: ACET-1311 PO (21:06)
[2016-08-22] MEDS ORDERED: HYDR-3983 PO (21:06)
[2016-08-22] MEDS ORDERED: ADVIN25/60 INH (21:06)
[2016-08-22] MEDS ORDERED: NYST1POW7 TOP (21:06)
[2016-08-22] MEDS ORDERED: CRAN1CAP15 PO (21:06)
[2016-08-22] MEDS ORDERED: FLUT0.15 NAE (21:06)
[2016-08-22] MEDS ORDERED: WARF5TAB90 PO ×2 (21:06)
[2016-12-16] MEDS ORDERED: CETI10TA84 PO (15:45)
[2016-12-16] MEDS ORDERED: OXCA1TAB28 PO (15:45)
[2016-12-16] MEDS ORDERED: PROM25TA9 PO (15:45)
[2016-12-16] MEDS ORDERED: OMEP40CA41 PO (15:45)
[2016-12-16] MEDS ORDERED: CALC0.2510 PO (15:45)
[2016-12-16] MEDS ORDERED: WARF-246 PO (15:45)
[2016-12-16] MEDS ORDERED: HYDR-4079 PO (15:55)
== END 2016-08-22 21:06 | disposition home or self-care (01) ==
LOC: C.EDB 19:02 → C.EDA 21:06
DX: N93.9 Abnormal uterine and vaginal bleeding, unspecified (principal); R79.1 Abnormal coagulation profile; E11.9 Type 2 diabetes mellitus without complications; I10 Essential (primary) hypertension; N18.3 Chronic kidney disease, stage 3 (moderate); Z80.9 Family history of malignant neoplasm, unspecified; Z79.01 Long term (current) use of anticoagulants; N39.0 Urinary tract infection, site not specified; R30.0 Dysuria

== ENCOUNTER → 2016-08-22 | Outpatient (CLI) | payer OTHER ==
[~2016-08-22] MED LIST changes: +AMOX500C3 PO; +FERR1TAB62 PO; -FERR325T PO; +WARF-281 PO
[2016-08-22 13:43] LABS: MANUAL MICROSCOPIC REQUIRED? YES; URINE APPEARANCE TURBID (CLEAR); URINE COLOR AMBER; URINE NITRITE NEG (NEG); URINE SPECIFIC GRAVITY >= 1.030 (1.000-1.030); UROBILINOGEN NEG (NEG)
[2016-08-22 14:01] LABS: REVIEW REQ? NO
[2016-08-22 14:02] LABS: URINE BILIRUBIN NEG (NEG)
[2016-08-22 14:04] LABS: URINE BACTERIA 2+ (NEG); URINE GRANULAR CAST 0-3 /lpf (0); URINE RBC >30 /hpf (0-4); URINE WBC >30 /hpf (0-5)
--- NOTE | 2016-08-26 09:55 | CODING QUERY NO DIAGNOSIS ---
Valid Physician Order Needed A valid physician order must be submitted in order to properly bill for the service(s) provided, including date of service(s), valid diagnosis, and physician signature. If these tests are done on a recurring basis the original physican order must be submitted in order to code and bill for the service(s) provided. Please fax us the original, signed physician order so that we may expedite billing to [phone] DOS 08/22/16 * U/A AND CULTURE ORDERED BY ALONDRA JENSEN Thank you Kandis [facility] Information Management
== END | disposition home or self-care (01) ==
LOC: C.LABSPEC 10:27
PROVIDERS: ATTEND Nurse Practitioner Family
DX: N39.0 Urinary tract infection, site not specified (principal)

== ENCOUNTER → 2016-08-25 | Outpatient (CLI) | payer OTHER ==
[~2016-08-25] MED LIST changes: +ACET-1311 PO; +ADVIN25/60 INH; +CALC-51 PO; +CALC0.2510 PO; +CETI10TA84 PO; +CLR10 PO; +CRAN1CAP15 PO; +FLUT0.15 NAE; +HYDR-3983 PO; +HYDR-4079 PO; -HYDR-5688 PO; +LIDOCAINE PATCH TOP; +MISCCAP80 PO; -NVLGI/PEN SQ; +NYST1POW7 TOP; +OMEP40CA41 PO; +OXCA1TAB28 PO; +PROM25TA9 PO; +WARF-246 PO; -WARF4TAB PO; +WARF5TAB90 PO
[2016-08-25 13:40] LABS: PROTHROMBIN TIME (PATIENT) 21.9 SECONDS (9.0-12.0)
--- NOTE | 2016-08-27 09:13 | CODING QUERY NO DIAGNOSIS ---
Valid Physician Order Needed A valid physician order must be submitted in order to properly bill for the service(s) provided, including date of service(s), valid diagnosis, and physician signature. If these tests are done on a recurring basis the original physican order must be submitted in order to code and bill for the service(s) provided. Please fax us the original, signed physician order so that we may expedite billing to [phone] DOS 08/25/16 * PT/INR ORDERED BY DR. BAXTER Thank you Kandis [facility] Information Management
== END | disposition home or self-care (01) ==
LOC: C.LABSPEC 12:47
PROVIDERS: ATTEND Internal Medicine
DX: Z51.81 Encounter for therapeutic drug level monitoring (principal); Z79.01 Long term (current) use of anticoagulants

== ENCOUNTER → 2016-08-28 | Outpatient (CLI) | payer OTHER ==
[2016-08-28 09:18] LABS: INR 1.6 (0.9-1.1); PROTHROMBIN TIME (PATIENT) 17.9 SECONDS (9.0-12.0)
--- NOTE | 2016-09-01 07:55 | CODING QUERY NO DIAGNOSIS ---
Valid Physician Order Needed A valid physician order must be submitted in order to properly bill for the service(s) provided, including date of service(s), valid diagnosis, and physician signature. If these tests are done on a recurring basis the original physican order must be submitted in order to code and bill for the service(s) provided. Please fax us the original, signed physician order so that we may expedite billing to [phone] DOS 08/28/16 * PT/INR ORDERED BY DR. BAXTER Thank you Kandis [facility] Information Management
== END | disposition home or self-care (01) ==
LOC: C.LABSPEC 09:02
PROVIDERS: ATTEND Internal Medicine
DX: Z51.81 Encounter for therapeutic drug level monitoring (principal); Z79.01 Long term (current) use of anticoagulants

== ENCOUNTER → 2016-09-08 | Day surgery (SDC) | payer OTHER ==
[~2016-09-08] VITALS: Ht 142.2 cm; Wt 104.5 kg
[~2016-09-08] MED LIST changes: +AMOX500C3 PO; +CHOL400T; +FERR1TAB62 PO; -FERR325T PO; +HYDR-5688 PO; +LIDOCAINE HCL 1% 20 ML VIAL ONE; +LIDOCAINE HCL 1% 20 ML VIAL SQ ONE; +NVLGI/PEN SQ; +WARF-281 PO; +WARF4TAB PO
--- NOTE | 2016-09-08 06:25 | History and Physical ---
History & Physical Date of Service Sep 08, 2016. History & Physical CC: End stage renal disease, functioning fistula History of Present Illness The patient is a 71 year old female with multiple medical problems including CAD , CHF, HTN, chronic renal failure,. She was admitted for creation of a left antecubital av fistula. This fistula is working well and she is now admitted for removal of her permcath. Denies JOSEPH, fever, chills, chest pain, SOB, abd pain, N/V, rest pain, claudication, other complaints. Allergies ANGEL Inhibitors (Verified Allergy, Unknown, unknown, 01/06/16) Acetaminophen (Verified Allergy, Unknown, unknown, 01/06/16) Doxycycline (Verified Allergy, Unknown, unknown, 01/06/16) Escitalopram (Verified Allergy, Unknown, unknown, 01/06/16) Homatropine (Verified Allergy, Unknown, unknown, 01/06/16) Metformin (Verified Allergy, Unknown, unknown, 01/06/16) Pioglitazone (Verified Allergy, Unknown, ? NOT SURE, 01/06/16) Rosiglitazone (Verified Allergy, Unknown, NOT SURE, 01/06/16) Simvastatin (Verified Allergy, Unknown, unknown, 01/06/16) Statins (Verified Adverse Reaction, Intermediate, LEGS HURT, 01/06/16) Ciprofloxacin (Verified Adverse Reaction, Mild, UPSET STOMACH, 01/06/16) Levofloxacin (Verified Adverse Reaction, Mild, ?NAUSEA, 01/06/16) UNKNOWN ANTI-BIOTIC (Allergy, Severe, SHAKING, 10/05/15) CAT GUT SUTURES (Allergy, Intermediate, SLOW HEALING,INFLAMED TISSUE, ) Home Medications Scheduled Cholecalciferol (Vitamin D3), 2,000 INTER.UNIT PO BID Diltiazem Hcl (Diltiazem Hcl Er), 120 MG PO DAILY Ferrous Sulfate (Ferrous Sulfate), 325 MG PO BID Fluticasone Prop/Salmeterol (Advair Diskus 250/50 60 Dose), 1 PUFF INH BID Gabapentin (Gabapentin), 200 MG PO TID Glimepiride (Glimepiride), 4 MG PO BID Insulin Glargine (Lantus Solostar Pen), 1 DOSE SC UD Irbesartan (Irbesartan), 300 MG PO DAILY Labetalol Hcl (Normodyne), 300 MG PO TID Loratadine (Allergy Relief), 10 MG PO DAILY Oxcarbazepine (Oxcarbazepine), 300 MG PO BID Spironolactone (Aldactone), 12.5 MG PO DAILY Warfarin Sodium (Warfarin Sodium), 10 MG PO HS Scheduled PRN Albuterol Inhaler (Ventolin Inhaler), 2 PUFFS INH QID PRN for Asthma Symptoms Problem List Medical Problems: (1) Acute kidney injury (2) Carpal tunnel syndrome (3) CHF exacerbation (4) CKD (chronic kidney disease) stage 3, GFR 30-59 ml/min (5) Diabetes (6) Fever (7) HTN (hypertension) (8) Hypoalbuminemia (9) Hypokalemia due to loss of potassium (10) Leukocytosis (11) Proteinuria (12) Trigeminal neuralgia Surgical / Medical History Hx Cardiac Surgery: No Hx Abdominal Surgery: No Hx Cancer Surgery: No Hx Thoracic Surgery: No Hx Orthopedic: Yes (B/L TOTAL KNEE REPLACEMENTS, LEFT CARPAL TUNNEL RELASE) Hx Urinary Tract Surgery: No Past Medical/Surgical History: CHF, Heart Disease, Hypertension, Kidney Disease Family History Cancer Social History Smoking Status: Never Smoker Hx Tobacco Use In Past Year?: No Hx Alcohol Use - Type & Amnt: No Hx Substance Use -Type & Amnt: No Review of Systems Constitutional: + malaise, No chills, No fever Skin: No change in color Eyes: No visual changes ENMT: No sore throat Respiratory: No SOB No hemoptysis Cardiovascular: + edema, No chest pain, No intermittent claudication, No palpitations, No syncope Gastrointestinal: No abdominal pain, No nausea, No vomiting Genitourinary - Female: No dysuria, No hematuria Neurologic: + lethargy, + weakness, No dizziness, No headache Physical Exam Constitutional: General Apperance: well-nourished, well-developed, obese Level of Distress: NAD, chronically ill Psychiatric: Mental Status: normal mood, lethargic Orientation: to time, to place, to person Memory: recent memory abnormal (vague), remote memory abnormal (vague) Head: normocephalic, atraumatic Eyes: EOM: EOMI ENMT: normal ENT inspection, hearing grossly normal Neck: supple, trachea midline Lungs: Auscultation: normal breath sounds, Cardiovascular: Apical Impulse: not displaced Heart Auscultation: RRR, no murmurs, no rubs, no gallops Peripheral Pulses: Pulses: full and equal, in all extremities except if noted Bruits: none appreciated Carotid Pulse: normal on the left, normal on the right Brachial Pulses: normal on the left, normal on the right Radial Pulse: normal on the left, normal on the right Femoral Pulse: normal on the left, normal on the right Posterior Tibialis Pulse: decreased on the left, decreased on the right Dorsalis Pedis Pulse: decreased on the left, decreased on the right Abdomen: Bowel Sounds: normal Inspection & Palpation: soft, distended Musculoskeletal: abnormal Extremities: Upper Right: no cyanosis, no varicosities, edema Upper Left: no cyanosis, no varicosities, no palpable cord, edema, good thrill and bruit Lower Right: no cyanosis, no varicosities, no palpable cord, edema Lower Left: no cyanosis, no varicosities, no palpable cord, edema, ulcers Neurologic: Cranial Nerves: grossly intact Sensation: grossly intact Assessment and Plan Imp: End stage renal disease Functioning fistula Plan: Patient is admitted for removal of her permcath. I have discussed the risks options and benefits of the procedure with the patient. The patient understands the risks options and benefits and agrees to the procedure.
[2016-09-08 09:40] VITALS: BP 125/62; PULSE 64; TEMP 36.7; O2SAT 94; Ht 142.2 cm; Wt 104.5 kg
[2016-09-08 10:08] LABS: PARTIAL THROMBOPLASTIN RATIO 1.6; PROTHROMBIN TIME (PATIENT) 22.6 SECONDS (9.0-12.0)
--- NOTE | 2016-09-08 10:24 | History & Physical Bridge Note ---
H&P Re-Evaluation Bridge Note: I have examined the patient, reviewed the History & Physical and in the interval since the performance of the History & Physical I have noted the following changes of clinical significance: No changes noted
--- NOTE | 2016-09-08 10:25 | Procedure Note ---
Pre-Mod Sedation Assessment General Date of Moderate Sedation: Sep 08, 2016. Vital Signs: Vital Signs Past 12 Hours Date Time Temp Pulse Resp B/P Pulse Ox O2 Delivery O2 Flow Rate FiO2 09/08/16 09:40 36.7 64 24 125/62 94 Room Air Pre-Sedation Airway Assessment Oral Cavity: Dentures Smoking Status: Never Smoker Mallampati Classification: Class I ASA Classification: Class II Notes The planned sedation has been discussed with the patient and consent obtained. I have identified the patient, determined the appropriateness of sedation and have assessed the patient immediately prior to the procedure. All medicine(s) and interventions are by my order.
--- NOTE | 2016-09-08 10:55 | [facility] Post Operative Brief Note ---
Immediate Operative Summary Operative Date Sep 08, 2016. Pre-Operative Diagnosis Functioning Fistula Post-Operative Diagnosis Same Procedure(s) Performed Removal of Perm Catheter Surgeon Dr. Johnson Defense Travel Administrator Surgeon(s) Dr. Brittanie Rudolph Estimated Blood Loss 10 Findings catheter and cuff removed Specimens A: Explant Perm Catheter Anesthesia Local Complication(s) None Disposition
--- NOTE | 2016-09-08 10:59 | Discharge Instructions ---
Discharge Instructions Date of Service Sep 08, 2016. Visit Reason for Visit: End Stage Renal Disease, Functioning Fistula Discharge Discharge Diagnosis / Problem: Functioning fistula Discharge Goals Goal(s): Therapeutic intervention Activity Recommendations Activity Limitations: per Instructions/Follow-up section Anesthesia . Post Anesthesia Instructions: If you have had General Anesthesia or IV Sedation: * Do not drive today. * Resume driving when surgeon permits. * Do not make important decisions or sign legal documents today. * Call surgeon for: 1. Temperature elevations greater than 101 degrees F. 2. Uncontrollable pain. 3. Excessive bleeding. 4. Persistent nausea and vomiting. 5. Medication intolerance (nausea, vomiting or rash). * For nausea and vomiting use only clear liquids such as: tea, soda, bouillon until nausea subsides, then gradually increase diet as tolerated. * If you have any concerns or questions, call your surgeon's office. If physician is unavailable and it is an emergency, call 911 or go to the nearest emergency room. . Instructions / Follow-Up Instructions / Follow-Up Call [phone] with any questions or concerns. SPECIAL CARE INSTRUCTIONS: Medications: * Continue to take your medications as directed. If you have been given a prescription for Plavix, please fill it immediately and take as directed. Incision Care: * Your puncture site may have some bruising and minor swelling for about one week. * You will have a small dressing covering your puncture site. You may remove the dressing after 24 hours and shower. You may let the warm soapy water run over it, but be sure to dry the puncture site well and keep it dry. * DO NOT IMMERSE THE INCISION IN A TUB/POOL/etc. UNTIL HEALED. * Puncture sites should be kept covered with a band-aid until it begins to heal. Restrictions: * Depending on whether you leg or arm was punctured to access the arteries, you will be required to lay flat, hold your arm still, or both, for about 4 hours after the procedure to prevent bleeding. * Limit your activity for the first 48 hours. You may walk and go up and down steps. Avoid excessive bending or movement at the puncture site. Possible Complications: * Excessive Swelling - after blood flow is improved you may notice increased swelling in the lower legs. This is a normal response. This usually depends on the amount of blockages in the leg, how long they have been there prior to your procedure and how much blood flow was restored. Elevating your legs will help to improve this. Please notify our office ([phone] ) if the swelling does not go away after lying in bed overnight. * Infection/Drainage/Bleeding - Drainage or bleeding from the puncture site should be minimal. If you have excessive bleeding or drainage, call our office ([phone]) right away. * Pain - You may experience some mild pain or soreness at your puncture site. If your pain does not improve, please contact our office ([phone]). Call your doctor and seek emergent treatment if you develop: * Temperature above 101 degrees * Any fever or chills * Any redness or purulent drainage from the puncture site * Any new dusky/blue colored toes or feet with coolness or sharp or aching pain. SKIN IRRITATION: * You may experience some redness and/or swelling in the area where radiation was administered. If any skin irritation occurs, please contact your family physician. FOLLOW UP VISIT: Keep any scheduled doctor appointments. Diet Recommendations Recommended Home Diet: resume previous diet Procedures Procedures Performed: Removal of Perm Catheter Pending Studies Studies pending at discharge: no Medical Emergencies . Who to Call and When: Medical Emergencies: If at any time you feel your situation is an emergency, please call 911 immediately. . Non-Emergent Contact Non-Emergency issues call your: Surgeon . . "Provider Documentation" section prepared by Juan Johnson.
[2016-09-08 11:10] VITALS: BP 140/73; PULSE 84; TEMP 37; O2SAT 94
[2016-09-08 11:25] VITALS: BP 138/82; PULSE 64; TEMP 37; O2SAT 92
[2016-09-08 11:40] VITALS: BP 140/67; PULSE 68; O2SAT 92
--- NOTE | 2016-09-08 11:51 | DIAGNOSTIC IMAGING REPORT ---
DATE OF PROCEDURE: 09/08/2016 PREOPERATIVE DIAGNOSIS: No longer having a need for a tunneled hemodialysis catheter. POSTOPERATIVE DIAGNOSIS: Same. PROCEDURE: Removal of right internal jugular tunneled hemodialysis line. SURGEON: Dr. Juan Johnson. ANIMAL KEEPER: Dr. Brittanie Rudolph. ESTIMATED BLOOD LOSS: 10 mL. ANESTHESIA: Local. COMPLICATIONS: None apparent. FLUIDS: None. URINE OUTPUT: Not recorded. INDICATIONS: Ms. Kalyani Diaz is a 71-year-old female in no longer need of her hemodialysis catheter. She is receiving dialysis through her fistula. She was advised the risks and benefits of proceeding with removing her catheter and agreed to undergo the procedure. DESCRIPTION OF PROCEDURE: The patient was brought into the operative suite. She was prepped and draped in the usual fashion. A timeout occurred. Local anesthetic was instilled around her hemodialysis catheter. A small marie was made at the skin puncture site to open this incision. A hemostat was used to spread the tissue and the catheter was pulled out. Pressure was held on the internal jugular until hemostasis was obtained for approximately [address] Juan Johnson was present for the entirety of this case. [facility]
[2016-09-08 12:10] VITALS: BP 112/63; PULSE 66; O2SAT 92
== END | disposition home or self-care (01) ==
LOC: C.ACU 09:07
PROVIDERS: ATTEND Surgery Vascular Surgery
DX: Z49.01 Encounter for fitting and adjustment of extracorporeal dialysis catheter (principal); E11.22 Type 2 diabetes mellitus with diabetic chronic kidney disease; N18.6 End stage renal disease; I13.0 Hypertensive heart and chronic kidney disease with heart failure and stage 1 through stage 4 chronic kidney disease, or unspecified chronic kidney disease; I50.9 Heart failure, unspecified; I25.10 Atherosclerotic heart disease of native coronary artery without angina pectoris; Z79.899 Other long term (current) drug therapy; Z79.84 Long term (current) use of oral hypoglycemic drugs

== ENCOUNTER → 2016-09-15 | Outpatient (CLI) | payer OTHER ==
[~2016-09-15] VITALS: Ht 152.4 cm; Wt 100.3 kg
[~2016-09-15] MED LIST changes: -CHOL400T; -FERR1TAB62 PO; -HYDR-5688 PO; -LIDOCAINE HCL 1% 20 ML VIAL ONE; -LIDOCAINE HCL 1% 20 ML VIAL SQ ONE; -NVLGI/PEN SQ; -NYST1POW7 TOP; -WARF4TAB PO
[2016-09-15 15:28] VITALS: BP 121/70; PULSE 67; Ht 152.4 cm; Wt 100.3 kg
== END | disposition home or self-care (01) ==
LOC: C.NEUR 14:04
PROVIDERS: ATTEND Physician Assistant Medical
DX: G47.33 Obstructive sleep apnea (adult) (pediatric) (principal); G47.34 Idiopathic sleep related nonobstructive alveolar hypoventilation; E66.01 Morbid (severe) obesity due to excess calories

== ENCOUNTER → 2016-09-22 | Outpatient (CLI) | payer OTHER ==
[2016-09-22 11:12] LABS: INR 2.2 (0.9-1.1); PROTHROMBIN TIME (PATIENT) 24.2 SECONDS (9.0-12.0)
--- NOTE | 2016-09-25 10:03 | CODING QUERY NO DIAGNOSIS ---
Valid Physician Order Needed A valid physician order must be submitted in order to properly bill for the service(s) provided, including date of service(s), valid diagnosis, and physician signature. If these tests are done on a recurring basis the original physician order must be submitted in order to code and bill for the service(s) provided. Please fax us the original, signed physician order so that we may expedite billing to [phone] DOS 09/22 * PTINR Thank you [facility] Information Management
== END | disposition home or self-care (01) ==
LOC: C.LABSPEC 10:38
PROVIDERS: ATTEND Internal Medicine
DX: I13.2 Hypertensive heart and chronic kidney disease with heart failure and with stage 5 chronic kidney disease, or end stage renal disease (principal); I50.32 Chronic diastolic (congestive) heart failure; E11.22 Type 2 diabetes mellitus with diabetic chronic kidney disease; N18.5 Chronic kidney disease, stage 5

== ENCOUNTER → 2016-09-30 | Outpatient (CLI) | payer OTHER ==
[2016-09-30 13:55] LABS: URINE APPEARANCE TURBID (CLEAR); URINE COLOR DK YELLOW; URINE EPITHELIAL CELL AUTO >30 /lpf (0-5); URINE NITRITE NEG (NEG); URINE SPECIFIC GRAVITY 1.028 (1.000-1.030); UROBILINOGEN NEG (NEG)
[2016-09-30 14:07] LABS: MANUAL MICROSCOPIC REQUIRED? NO; REVIEW REQ? YES; URINE BILIRUBIN NEG (NEG)
== END | disposition home or self-care (01) ==
LOC: C.LABSPEC 12:42
PROVIDERS: ATTEND Nurse Practitioner Family
DX: R30.0 Dysuria (principal)

== ENCOUNTER → 2016-10-20 | Outpatient (CLI) | payer OTHER ==
[~2016-10-20] MED LIST changes: -AMOX500C3 PO; -WARF-281 PO
[2016-10-20 10:48] LABS: INR 1.4 (0.9-1.1); PROTHROMBIN TIME (PATIENT) 15.1 SECONDS (9.0-12.0)
--- NOTE | 2016-10-22 11:12 | CODING QUERY NO DIAGNOSIS ---
Valid Physician Order Needed 43 A valid physician order must be submitted in order to properly bill for the service(s) provided, including date of service(s), valid diagnosis, and physician signature. If these tests are done on a recurring basis the original physician order must be submitted in order to code and bill for the service(s) provided. Please fax us the original, signed physician order so that we may expedite billing to [phone] DOS 10/20/16 * PT/INR Thank you Jessica [facility] Information Management
== END | disposition home or self-care (01) ==
LOC: C.LABSPEC 10:21
PROVIDERS: ATTEND Internal Medicine
DX: I48.91 Unspecified atrial fibrillation (principal); Z79.01 Long term (current) use of anticoagulants; Z51.81 Encounter for therapeutic drug level monitoring

== ENCOUNTER → 2016-10-27 | Outpatient (CLI) | payer OTHER ==
[~2016-10-27] MED LIST changes: +AMOX500C3 PO; +WARF-281 PO
[2016-10-27 17:48] LABS: INR 1.5 (0.9-1.1); PROTHROMBIN TIME (PATIENT) 16.3 SECONDS (9.0-12.0)
--- NOTE | 2016-10-28 14:07 | CODING QUERY NO DIAGNOSIS ---
Valid Physician Order Needed A valid physician order must be submitted in order to properly bill for the service(s) provided, including date of service(s), valid diagnosis, and physician signature. If these tests are done on a recurring basis the original physican order must be submitted in order to code and bill for the service(s) provided. Please fax us the original, signed physician order so that we may expedite billing to [phone] DOS 10/27/2016 * PT/INR * WOUND CULTURE, SURFACE AND GS Thank you [facility] Information Management
== END | disposition home or self-care (01) ==
LOC: C.LABSPEC 17:22
PROVIDERS: ATTEND Internal Medicine
DX: I48.91 Unspecified atrial fibrillation (principal)

== ENCOUNTER → 2016-11-03 | Outpatient (CLI) | payer OTHER ==
[2016-11-03 09:45] LABS: INR 1.8 (0.9-1.1); PROTHROMBIN TIME (PATIENT) 20.1 SECONDS (9.0-12.0)
== END | disposition home or self-care (01) ==
LOC: C.LABSPEC 09:16
PROVIDERS: ATTEND Internal Medicine
DX: Z79.01 Long term (current) use of anticoagulants (principal); Z51.81 Encounter for therapeutic drug level monitoring

== ENCOUNTER → 2016-11-17 | Outpatient (CLI) | payer OTHER ==
[~2016-11-17] MED LIST changes: -AMOX500C3 PO; -WARF-281 PO
[2016-11-17 11:18] LABS: INR 2.6 (0.9-1.1); PROTHROMBIN TIME (PATIENT) 28.7 SECONDS (9.0-12.0)
--- NOTE | 2016-11-25 07:17 | CODING QUERY NO DIAGNOSIS ---
Valid Physician Order Needed A valid physician order must be submitted in order to properly bill for the service(s) provided, including date of service(s), valid diagnosis, and physician signature. If these tests are done on a recurring basis the original physican order must be submitted in order to code and bill for the service(s) provided. Please fax us the original, signed physician order so that we may expedite billing to [phone] DOS 11/17/16 * PT/INR Thank you [facility] Information Management
== END | disposition home or self-care (01) ==
LOC: C.LABSPEC 10:51
PROVIDERS: ATTEND Internal Medicine
DX: Z51.81 Encounter for therapeutic drug level monitoring (principal); Z79.01 Long term (current) use of anticoagulants

== ENCOUNTER → 2016-12-01 | Outpatient (CLI) | payer OTHER ==
[~2016-12-01] VITALS: Ht 152.4 cm; Wt 96.2 kg
[~2016-12-01] MED LIST changes: +AMOX500C3 PO; +WARF-281 PO
[2016-12-01 15:01] VITALS: BP 133/59; PULSE 63; Ht 152.4 cm; Wt 96.2 kg
== END | disposition home or self-care (01) ==
LOC: C.NEUR 14:12
PROVIDERS: ATTEND Physician Assistant Medical
DX: G47.33 Obstructive sleep apnea (adult) (pediatric) (principal); Z51.81 Encounter for therapeutic drug level monitoring; Z79.01 Long term (current) use of anticoagulants

== ENCOUNTER → 2016-12-01 | Outpatient (CLI) | payer OTHER ==
[2016-12-01 13:52] LABS: PROTHROMBIN TIME (PATIENT) 46.5 SECONDS (9.0-12.0)
[2016-12-01 14:27] LABS: INR 4.1 (0.9-1.1)
== END | disposition home or self-care (01) ==
LOC: C.LABSPEC 12:38
PROVIDERS: ATTEND Internal Medicine
DX: Z51.81 Encounter for therapeutic drug level monitoring (principal); Z79.01 Long term (current) use of anticoagulants

== ENCOUNTER → 2016-12-03 | Outpatient (CLI) | payer OTHER ==
[~2016-12-03] MED LIST changes: -AMOX500C3 PO; -CALC0.2510 PO; -CETI10TA84 PO; -HYDR-4079 PO; -OMEP40CA41 PO; -OXCA1TAB28 PO; -PROM25TA9 PO; -WARF-246 PO; -WARF-281 PO
[2016-12-03 10:53] LABS: PROTHROMBIN TIME (PATIENT) 22.1 SECONDS (9.0-12.0)
== END | disposition home or self-care (01) ==
LOC: C.LABSPEC 09:44
PROVIDERS: ATTEND Internal Medicine
DX: Z79.01 Long term (current) use of anticoagulants (principal)

== ENCOUNTER → 2016-12-13 | Outpatient (CLI) | payer OTHER ==
[~2016-12-13] MED LIST changes: +CALC0.2510 PO; +CETI10TA84 PO; +HYDR-4079 PO; +OMEP40CA41 PO; +OXCA1TAB28 PO; +PROM25TA9 PO; +WARF-246 PO
[2016-12-13 13:41] LABS: INR 1.5 (0.9-1.1); PROTHROMBIN TIME (PATIENT) 16.2 SECONDS (9.0-12.0)
== END | disposition home or self-care (01) ==
LOC: C.LABSPEC 15:07
PROVIDERS: ATTEND Internal Medicine
DX: Z79.01 Long term (current) use of anticoagulants (principal); Z51.81 Encounter for therapeutic drug level monitoring

== ENCOUNTER → 2016-12-18 | Day surgery (SDC) | payer OTHER ==
[2016-12-16 15:47] VITALS: BMI 61.0
[~2016-12-18] VITALS: Ht 152.4 cm; Wt 96.5 kg
[~2016-12-18] MED LIST changes: -ACET-1311 PO; -ADVIN25/60 INH; -CALC-51 PO; -CHOL2000 PO; -CLR10 PO; -CRAN1CAP15 PO; -FLUT0.15 NAE; -HYDR-3983 PO; +LIDOCAINE HCL 2% 2 ML VIAL (20MG/ML) ONE; -LIDOCAINE PATCH TOP; -MISCCAP80 PO; -NRN100 PO; -PRLSR20 PO; +PROPOFOL IV EMULSION 10 MG/ML 20 ML VIAL IV ONE; -TRL300 PO; -WARF5TAB90 PO
--- NOTE | 2016-12-18 12:22 | Endo History and Physical ---
History & Physical Date of Service: Dec 18, 2016. Chief Complaint: Dysphagia Referring Physician: Dr. Roderick Espino History of Present Illness 71 yo CF who presents for EGD secondary to dysphagia. Past Medical History Diabetes, High Cholesterol, CHF, Hypertension, Kidney Disease, CVA/TIA Past Surgical History Hx Cardiac Surgery: No Hx Internal Defibrillator: No Hx Pacemaker: No Hx Abdominal Surgery: Yes (TUBAL LIGATION, D&C) Hx of Implantable Prosthesis: No Hx Post-Op Nausea and Vomiting: No Hx Cancer Surgery: No Hx Thoracic Surgery: No Hx Orthopedic: Yes (RT/LEFT TKA, LEFT CTR) Hx Urinary Tract Surgery: No Family History None Social History Smoking Status: Never Smoker Hx Substance Use: Yes (SEE MED REC) Hx Alcohol Use: No Allergies Coded Allergies: ANGEL Inhibitors (Verified Allergy, Unknown, unknown, 12/16/16) Doxycycline (Verified Allergy, Unknown, unknown, 12/16/16) Escitalopram (Verified Allergy, Unknown, unknown, 12/16/16) Homatropine (Verified Allergy, Unknown, unknown, 12/16/16) Metformin (Verified Allergy, Unknown, unknown, 12/16/16) Pioglitazone (Verified Allergy, Unknown, ? NOT SURE, 12/16/16) Rosiglitazone (Verified Allergy, Unknown, NOT SURE, 12/16/16) Simvastatin (Verified Allergy, Unknown, unknown, 12/16/16) Statins (Verified Adverse Reaction, Intermediate, LEGS HURT, 12/16/16) Ciprofloxacin (Verified Adverse Reaction, Mild, UPSET STOMACH, 12/16/16) Levofloxacin (Verified Adverse Reaction, Mild, ?NAUSEA, 12/16/16) Uncoded Allergies: UNKNOWN ANTI-BIOTIC (Allergy, Severe, SHAKING, 10/05/15) CAT GUT SUTURES (Allergy, Intermediate, SLOW HEALING,INFLAMED TISSUE, ) Current Medications Reported Home Medications Medications Dose Route/Sig Max Daily Dose Days Date Category Dose Instructions [place] 10MG/325MG (Acetaminophen/Hydrocodone Bitart) Tab 1-2 Tabs PO Q6H PRN 12/16/16 Reported PRN PAIN Zyrtec (Cetirizine HCl) 10 Mg Tab 10 Mg PO QPM 12/16/16 Reported Warfarin Sodium 5 Mg Tab 1 Tab PO DIRECTED 90 12/16/16 Reported CURRENTLY ON HOLD Rocaltrol Cap (Calcitriol) 0.25 Mcg Cap 0.25 Mcg PO BID 12/16/16 Reported Oxtellar Xr (Oxcarbazepine) 300 Mg Tab 1 Tab PO BID 12/16/16 Reported Phenergan (Promethazine HCl) 25 Mg Tab 25 Mg PO Q6H PRN 12/16/16 Reported Prilosec (Omeprazole) 40 Mg Cap 40 Mg PO QAM 12/16/16 Reported Bumex (Bumetanide) 2 Mg Tab 2 Mg PO QAM 03/05/16 Reported Normodyne (Labetalol Hcl) 300 Mg Tab 300 Mg PO TID 02/02/16 Reported Vital Signs Weight (Kilograms): 141.82 Height (Feet): 5 Height (Inches): 0 Date Time Temp Pulse Resp B/P (MAP) Pulse Ox O2 Delivery O2 Flow Rate FiO2 12/18/16 11:20 37.1 71 16 133/64 (87) 94 Room Air Physical Exam General Appearance: WD/WN, no apparent distress Respiratory/Chest: Auscultation: breath sounds normal Cardiovascular: Heart Auscultation: RRR Abdomen: Bowel Sounds: normal Inspection & Palpation: soft, non-distended, no tenderness, guarding & rebound Assessment and Plan Assessment: 71 yo CF who presents for EGD secondary to dysphagia. Plan: Proceed with EGD.
[2016-12-18 12:23] VITALS: Ht 152.4 cm; Wt 96.5 kg
--- NOTE | 2016-12-18 13:00 | Anesthesiology Progress Note ---
Anesthesia Post Op Note Date & Time Dec 18, 2016 at 13:00 Vital Signs Pain Intensity: 0 Vital Signs Past 12 Hours Date Time Temp Pulse Resp B/P (MAP) Pulse Ox O2 Delivery O2 Flow Rate FiO2 12/18/16 11:20 37.1 71 16 133/64 (87) 94 Room Air Notes Mental Status: alert / awake / arousable, participated in evaluation Pt Amnestic to Procedure: Yes Nausea / Vomiting: adequately controlled Pain: adequately controlled Airway Patency, RR, SpO2: stable & adequate BP & HR: stable & adequate Hydration State: stable & adequate Anesthetic Complications: no major complications apparent
--- NOTE | 2016-12-18 13:13 | GI REPORT ---
Procedure Date: 12/18/2016 12:12 PM Procedure: Upper GI endoscopy Indications: Dysphagia Medicines: Monitored Anesthesia Care Complications: No immediate complications. Estimated Blood Loss: Estimated blood loss: none. Procedure: Pre-Anesthesia Assessment: - Prior to the procedure, a History and Physical was performed, and patient medications and allergies were reviewed. The patient's tolerance of previous anesthesia was also reviewed. The risks and benefits of the procedure and the sedation options and risks were discussed with the patient. All questions were answered, and informed consent was obtained. Prior Anticoagulants: The patient has taken Coumadin (warfarin), last dose was 6 days prior to procedure. ASA Grade Assessment: IV - A patient with severe systemic disease that is a constant threat to life. After reviewing the risks and benefits, the patient was deemed in satisfactory condition to undergo the procedure. After obtaining informed consent, the endoscope was passed under direct vision. Throughout the procedure, the patient's blood pressure, pulse, and oxygen saturations were monitored continuously. The scope was introduced through the mouth, and advanced to the second part of duodenum. The upper GI endoscopy was accomplished without difficulty. The patient tolerated the procedure well. Findings: No endoscopic abnormality was evident in the esophagus to explain the patient's complaint of dysphagia. A small hiatus hernia was present. Localized mild inflammation characterized by erythema was found in the gastric antrum. Biopsies were taken with a cold forceps for histology. The examined duodenum was normal. Impression: - No endoscopic esophageal abnormality to explain patient's dysphagia. - Small hiatus hernia. - Gastritis. Biopsied. - Normal examined duodenum. Recommendation: - Resume previous diet. - Continue present medications. - Await pathology results. - Return to primary care physician as previously scheduled. Dave Noriega DO 12/18/2016 1:13:26 PM This report has been signed electronically. Note Initiated On: 12/18/2016 12:12 PM I attest to the content of the Intraoperative Record and orders documented therein, exceptions below
--- NOTE | 2016-12-18 13:22 | Discharge Instructions ---
Endoscopy Patient Instructions Date / Procedure(s) Performed Dec 18, 2016. EGD Allergy Information Coded Allergies: ANGEL Inhibitors (Verified Allergy, Unknown, unknown, 12/16/16) Doxycycline (Verified Allergy, Unknown, unknown, 12/16/16) Escitalopram (Verified Allergy, Unknown, unknown, 12/16/16) Homatropine (Verified Allergy, Unknown, unknown, 12/16/16) Metformin (Verified Allergy, Unknown, unknown, 12/16/16) Pioglitazone (Verified Allergy, Unknown, ? NOT SURE, 12/16/16) Rosiglitazone (Verified Allergy, Unknown, NOT SURE, 12/16/16) Simvastatin (Verified Allergy, Unknown, unknown, 12/16/16) Statins (Verified Adverse Reaction, Intermediate, LEGS HURT, 12/16/16) Ciprofloxacin (Verified Adverse Reaction, Mild, UPSET STOMACH, 12/16/16) Levofloxacin (Verified Adverse Reaction, Mild, ?NAUSEA, 12/16/16) Uncoded Allergies: UNKNOWN ANTI-BIOTIC (Allergy, Severe, SHAKING, 10/05/15) CAT GUT SUTURES (Allergy, Intermediate, SLOW HEALING,INFLAMED TISSUE, ) Discharge Date / Findings Dec 18, 2016. Hiatal hernia Gastritis s/p biopsies Retained pill in esophagus Medication Instructions Stopped Medication(s): last warfarin on Tuesday 12/12 OK to resume all medications today as prescribed Reported Home Medications Medications Dose Route/Sig Max Daily Dose Days Date Category Dose Instructions [place] 10MG/325MG (Acetaminophen/Hydrocodone Bitart) Tab 1-2 Tabs PO Q6H PRN 12/16/16 Reported PRN PAIN Zyrtec (Cetirizine HCl) 10 Mg Tab 10 Mg PO QPM 12/16/16 Reported Warfarin Sodium 5 Mg Tab 1 Tab PO DIRECTED 90 12/16/16 Reported CURRENTLY ON HOLD Rocaltrol Cap (Calcitriol) 0.25 Mcg Cap 0.25 Mcg PO BID 12/16/16 Reported Oxtellar Xr (Oxcarbazepine) 300 Mg Tab 1 Tab PO BID 12/16/16 Reported Phenergan (Promethazine HCl) 25 Mg Tab 25 Mg PO Q6H PRN 12/16/16 Reported Prilosec (Omeprazole) 40 Mg Cap 40 Mg PO QAM 12/16/16 Reported Bumex (Bumetanide) 2 Mg Tab 2 Mg PO QAM 03/05/16 Reported Normodyne (Labetalol Hcl) 300 Mg Tab 300 Mg PO TID 02/02/16 Reported Provider Instructions Activity Restrictions - No exercising or heavy lifting for 24 hours. - Do not drink alcohol the day of the procedure. - Do not drive a car or operate machinery until the day after the procedure. - Do not make any important decisions or sign important papers in 24 hours after the procedure. Following Day: - Return to full activity which may include returning to work/school. Diet Start your diet with liquids and light foods (jello, soup, juice, toast). Then eat your usual diet if not nauseated. Treatment For Common After Affects For mild abdominal pain, bloating, or excessive gas: - Rest - Eat lightly - Lie on right side Follow-Up Information Follow-up with Dr. Roderick Espino as scheduled Anesthesia Information What You Should Know You have had a procedure that required some medicine to reduce anxiety and discomfort. This treatment is called moderate sedation. After receiving the treatment, you may be sleepy, but you will be able to breathe on your own. The effects of the treatment may last for several hours. Follow these instructions along with Activity/Diet recommendations noted above: * Do NOT do anything where dizziness or clumsiness would be dangerous. * Rest quietly at home today, then you can be up and about tomorrow. * Have a responsible person stay with you the rest of today. * You may have had an I.V. today. If so, you may take the dressing off later today. Recommendations Call your doctor if: * Trouble breathing * Continuous vomiting for more than 24 hours * Temperature above 101 degrees * Severe abdominal pain or bloating * Pain not relieved by pain medicine ordered * There is increased drainage or redness from any incision * A large amount of rectal bleeding greater than 2-3 tablespoons. (If you had a polyp/s removed or have hemorrhoids, a small amount of blood - from the rectum is to be expected.) * You have any unanswered questions or concerns. IN THE EVENT OF A SERIOUS EMERGENCY, GO TO THE NEAREST EMERGENCY ROOM Your discharge instructions were prepared by provider Dave Noriega. Patient Instructions Signature Page Kalyani Diaz Patient (or Guardian) Signature/Date: I have read and understand the instructions given to me by my caregivers. Caregiver/RN/Doctor Signature/Date: The above-named patient and/or guardian has received patient instructions on this date. + Original Patient Signature Page (only) stays with chart. Please make copy for patient.
[2016-12-18 13:25] VITALS: BP 133/67; PULSE 68; O2SAT 93
== END | disposition home or self-care (01) ==
LOC: C.GI 10:58
PROVIDERS: ATTEND Internal Medicine
DX: R13.10 Dysphagia, unspecified (principal); K44.9 Diaphragmatic hernia without obstruction or gangrene; K29.50 Unspecified chronic gastritis without bleeding; I11.0 Hypertensive heart disease with heart failure; I50.9 Heart failure, unspecified; E11.9 Type 2 diabetes mellitus without complications; E78.00 Pure hypercholesterolemia, unspecified; N28.9 Disorder of kidney and ureter, unspecified; Z86.73 Personal history of transient ischemic attack (TIA), and cerebral infarction without residual deficits; Z79.899 Other long term (current) drug therapy

== ENCOUNTER → 2016-12-22 | Outpatient (CLI) | payer OTHER ==
[~2016-12-22] MED LIST changes: -LIDOCAINE HCL 2% 2 ML VIAL (20MG/ML) ONE; -PROPOFOL IV EMULSION 10 MG/ML 20 ML VIAL IV ONE
[2016-12-22 12:08] LABS: INR 1.2 (0.9-1.1); PROTHROMBIN TIME (PATIENT) 12.5 SECONDS (9.0-12.0)
--- NOTE | 2016-12-24 12:16 | CODING QUERY NO DIAGNOSIS ---
Valid Physician Order Needed A valid physician order must be submitted in order to properly bill for the service(s) provided, including date of service(s), valid diagnosis, and physician signature. If these tests are done on a recurring basis the original physician order must be submitted in order to code and bill for the service(s) provided. Please fax us the original, signed physician order so that we may expedite billing to [phone] DOS 12/22 * PTINR Thank you [facility]
== END | disposition home or self-care (01) ==
LOC: C.LABSPEC 10:59
PROVIDERS: ATTEND Internal Medicine
DX: Z51.81 Encounter for therapeutic drug level monitoring (principal); Z79.01 Long term (current) use of anticoagulants

== ENCOUNTER → 2016-12-24 | Outpatient (CLI) | payer OTHER ==
--- NOTE | 2016-12-24 08:10 | DIAGNOSTIC IMAGING REPORT ---
(BARIUM SWALLOW) ESOPHAGUS CLINICAL HISTORY: R47.02 Acquired dysphasia COMPARISON STUDY: None FLUOROSCOPY TIME: 2.1 minutes. 24 fluoroscopic spot images were acquired.. FINDINGS: The patient swallowed effervescent granules and barium without difficulty. Rapid sequence swallows in the AP and lateral projections reveal no evidence of aspiration. No esophageal masses or oral serrations are visualized. There was disordered esophageal motility. The patient was administered one half inch barium tablet. This freely passed the stomach. IMPRESSION: Disordered esophageal motility. Otherwise normal study. Electronically signed by: Julito Gonsalves M.D. 12/24/2016 8:09 AM Dictated Date/Time: 12/24/2016 8:07 AM
== END ==
LOC: C.RAD 07:19
PROVIDERS: ATTEND Internal Medicine
DX: R47.02 Dysphasia (principal)

== ENCOUNTER → 2016-12-29 | Outpatient (CLI) | payer OTHER ==
[2016-12-29 10:13] LABS: INR 1.3 (0.9-1.1); PROTHROMBIN TIME (PATIENT) 13.7 SECONDS (9.0-12.0)
== END | disposition home or self-care (01) ==
LOC: C.LABSPEC 09:45
PROVIDERS: ATTEND Internal Medicine
DX: Z79.01 Long term (current) use of anticoagulants (principal)

== ENCOUNTER → 2017-01-05 | Outpatient (CLI) | payer OTHER ==
[2017-01-05 11:50] LABS: INR 2.6 (0.9-1.1); PROTHROMBIN TIME (PATIENT) 28.4 SECONDS (9.0-12.0)
--- NOTE | 2017-01-06 13:31 | CODING QUERY NO DIAGNOSIS ---
Valid Physician Order Needed A valid physician order must be submitted in order to properly bill for the service(s) provided, including date of service(s), valid diagnosis, and physician signature. If these tests are done on a recurring basis the original physican order must be submitted in order to code and bill for the service(s) provided. Please fax us the original, signed physician order so that we may expedite billing to [phone] DOS 01/05/2017 * PT/INR Thank you [facility] Information Management
== END | disposition home or self-care (01) ==
LOC: C.LABSPEC 10:37
PROVIDERS: ATTEND Internal Medicine
DX: Z51.81 Encounter for therapeutic drug level monitoring (principal); Z79.01 Long term (current) use of anticoagulants

== ENCOUNTER → 2017-03-23 | Outpatient (CLI) | payer OTHER ==
[~2017-03-23] MED LIST changes: +WARF-281 PO
[2017-03-23 17:27] LABS: BASO % 0.5 %; BASO ABS # 0.02 K/uL (0-0.2); COMPLETE YES; EOS % 2.7 %; HEMATOCRIT 34.7 % (37-47); IG% 0.2 %; LYMPH % 26.2 %; LYMPH ABS # 1.07 K/uL (1.2-3.4); MEAN CELL VOLUME 97.5 fL (80-100); MEAN CORPUSCULAR HEMOGLOBIN 31.7 pg (25-34); MEAN CORPUSCULAR HGB CONC 32.6 g/dl (32-36); MEAN PLATELET VOLUME 9.2 fL (7.4-10.4); MONO % 10.8 %; NEUT % 59.6 %; PLATELET COUNT 151 K/uL (130-400); RED BLOOD COUNT 3.56 M/uL (4.2-5.4); WHITE BLOOD COUNT 4.09 K/uL (4.8-10.8)
[2017-03-23 18:06] LABS: CHOLESTEROL/HDL RATIO 2.9
[2017-03-24 08:35] LABS: ESTIMATED AVERAGE GLUCOSE 120 mg/dl; HA1C FLAG Normal (Normal)
== END | disposition home or self-care (01) ==
LOC: C.LABBFT 15:42
PROVIDERS: ATTEND Internal Medicine
DX: S91.309A Unspecified open wound, unspecified foot, initial encounter (principal); E78.5 Hyperlipidemia, unspecified; E11.9 Type 2 diabetes mellitus without complications; X58.XXXA Exposure to other specified factors, initial encounter

== ENCOUNTER → 2017-03-24 | Outpatient (CLI) | payer OTHER ==
[~2017-03-24] MED LIST changes: -WARF-246 PO
--- NOTE | 2017-03-24 15:09 | DIAGNOSTIC IMAGING REPORT ---
R HEEL MIN 2 VIEWS HISTORY: 72 years-old Female S91.309A Open wound of heelR/O OSTEOMYELITIS acute wound of the right heel. COMPARISON: None available TECHNIQUE: 3 views of the right calcaneus FINDINGS: The bones are moderately demineralized. Extensive vascular calcifications are noted. There are prominent enthesophytes about the calcaneus. Severe hindfoot and midfoot degenerative changes are present with dystrophic calcifications seen within the region of the plantar fascia. Moderate soft tissue swelling of the heel pad with focal skin ulceration. No definite erosive changes of the calcaneus to suggest osteomyelitis. IMPRESSION: 1. Moderate soft tissue swelling of the heel pad with focal skin ulceration. No bony erosive changes to suggest osteomyelitis at this time. 2. Osteopenia with multifocal advanced degenerative changes as above. 3. Peripheral vascular disease. The above report was generated using voice recognition software. It may contain grammatical, syntax or spelling errors. Electronically signed by: Hesham Castellon M.D. 03/24/2017 3:08 PM Dictated Date/Time: 03/24/2017 3:04 PM
== END | disposition home or self-care (01) ==
LOC: C.RAD1850 14:44
PROVIDERS: ATTEND Physician Assistant Medical
DX: S91.301A Unspecified open wound, right foot, initial encounter (principal); M85.871 Other specified disorders of bone density and structure, right ankle and foot; I73.9 Peripheral vascular disease, unspecified; X58.XXXA Exposure to other specified factors, initial encounter

== ENCOUNTER → 2017-04-06 | Day surgery (SDC) | payer OTHER ==
[2017-03-23 11:47] VITALS: Ht 152.4 cm; Wt 89.1 kg
[~2017-04-06] VITALS: Ht 152.4 cm; Wt 89.1 kg
[~2017-04-06] MED LIST changes: +AMOX500C3 PO; +EpHEDrine SULFATE 50MG/5ML SYR ONE; +LIDOCAINE HCL 2% 2 ML VIAL (20MG/ML) ONE; +PROPOFOL IV EMULSION 10 MG/ML 20 ML VIAL IV ONE
--- NOTE | 2017-04-06 11:08 | Endo History and Physical ---
History & Physical Date of Service: Apr 06, 2017. Chief Complaint: Screening colonoscopy. Referring Physician: Dr. Espino History of Present Illness 72 yo CF who presents for Colonoscopy secondary to hematochezia. Past Medical History Diabetes, High Cholesterol, CHF, Hypertension, Kidney Disease, CVA/TIA Past Surgical History Hx Cardiac Surgery: No Hx Internal Defibrillator: No Hx Pacemaker: No Hx Abdominal Surgery: Yes (TUBAL LIGATION, D&C) Hx of Implantable Prosthesis: No Hx Post-Op Nausea and Vomiting: No Hx Cancer Surgery: No Hx Thoracic Surgery: No Hx Orthopedic: Yes (RT/LT TKA, LT CTR) Hx Urinary Tract Surgery: No Family History None Social History Smoking Status: Never Smoker Hx Substance Use: No Hx Alcohol Use: No Allergies Coded Allergies: ANGEL Inhibitors (Verified Allergy, Unknown, unknown, 03/23/17) Doxycycline (Verified Allergy, Unknown, unknown, 03/23/17) Escitalopram (Verified Allergy, Unknown, unknown, 03/23/17) Homatropine (Verified Allergy, Unknown, unknown, 03/23/17) Metformin (Verified Allergy, Unknown, unknown, 03/23/17) Pioglitazone (Verified Allergy, Unknown, ? NOT SURE, 03/23/17) Rosiglitazone (Verified Allergy, Unknown, NOT SURE, 03/23/17) Simvastatin (Verified Allergy, Unknown, unknown, 03/23/17) Statins (Verified Adverse Reaction, Intermediate, LEGS HURT, 03/23/17) Ciprofloxacin (Verified Adverse Reaction, Mild, UPSET STOMACH, 03/23/17) Levofloxacin (Verified Adverse Reaction, Mild, ?NAUSEA, 03/23/17) Uncoded Allergies: UNKNOWN ANTI-BIOTIC (Allergy, Severe, SHAKING, 10/05/15) CAT GUT SUTURES (Allergy, Intermediate, SLOW HEALING,INFLAMED TISSUE, ) Current Medications Reported Home Medications Medications Dose Route/Sig Max Daily Dose Days Date Category Dose Instructions Warfarin Sodium 10 Mg Tab 1 Tab PO HS 03/23/17 Reported [place] 10MG/325MG (Acetaminophen/Hydrocodone Bitart) Tab 1-2 Tabs PO Q6H PRN 12/16/16 Reported PRN PAIN Zyrtec (Cetirizine HCl) 10 Mg Tab 10 Mg PO QPM 12/16/16 Reported Rocaltrol Cap (Calcitriol) 0.25 Mcg Cap 0.25 Mcg PO BID 12/16/16 Reported Oxtellar Xr (Oxcarbazepine) 300 Mg Tab 1 Tab PO BID 12/16/16 Reported Phenergan (Promethazine HCl) 25 Mg Tab 25 Mg PO Q6H PRN 12/16/16 Reported Prilosec (Omeprazole) 40 Mg Cap 40 Mg PO QAM 12/16/16 Reported Bumex (Bumetanide) 2 Mg Tab 2 Mg PO QAM 03/05/16 Reported Normodyne (Labetalol Hcl) 300 Mg Tab 300 Mg PO TID 02/02/16 Reported Vital Signs Weight (Kilograms): 89.09 Height (Feet): 5 Height (Inches): 0 Physical Exam General Appearance: WD/WN, no apparent distress Respiratory/Chest: Auscultation: breath sounds normal Cardiovascular: Heart Auscultation: RRR Abdomen: Bowel Sounds: normal Inspection & Palpation: soft, non-distended, no tenderness, guarding & rebound Assessment and Plan Assessment: 72 yo CF who presents for Colonoscopy secondary to hematochezia. Plan: Proceed with colonoscopy.
[2017-04-06 12:21] LABS: ISTAT CREATININE 3.4 mg/dl (0.6-1.3); ISTAT HEMOGLOBIN 10.2 g/dl (12.0-16.0); ISTAT IONIZED CALCIUM 1.14 mmol/l (1.12-1.32)
--- NOTE | 2017-04-06 12:33 | Discharge Instructions ---
Endoscopy Patient Instructions Date / Procedure(s) Performed Apr 06, 2017. Colonoscopy Allergy Information Coded Allergies: ANGEL Inhibitors (Verified Allergy, Unknown, unknown, 03/23/17) Doxycycline (Verified Allergy, Unknown, unknown, 03/23/17) Escitalopram (Verified Allergy, Unknown, unknown, 03/23/17) Homatropine (Verified Allergy, Unknown, unknown, 03/23/17) Metformin (Verified Allergy, Unknown, unknown, 03/23/17) Pioglitazone (Verified Allergy, Unknown, ? NOT SURE, 03/23/17) Rosiglitazone (Verified Allergy, Unknown, NOT SURE, 03/23/17) Simvastatin (Verified Allergy, Unknown, unknown, 03/23/17) Statins (Verified Adverse Reaction, Intermediate, LEGS HURT, 03/23/17) Ciprofloxacin (Verified Adverse Reaction, Mild, UPSET STOMACH, 03/23/17) Levofloxacin (Verified Adverse Reaction, Mild, ?NAUSEA, 03/23/17) Uncoded Allergies: UNKNOWN ANTI-BIOTIC (Allergy, Severe, SHAKING, 10/05/15) CAT GUT SUTURES (Allergy, Intermediate, SLOW HEALING,INFLAMED TISSUE, ) Discharge Date / Findings Apr 06, 2017. Diverticulosis Internal hemorrhoids Medication Instructions Stopped Medication(s): Coumadin was last taken wednesday. OK to resume all medications today as prescribed Reported Home Medications Medications Dose Route/Sig Max Daily Dose Days Date Category Dose Instructions Amoxil (Amoxicillin) 500 Mg Cap 1 Cap PO BID 10 04/06/17 Reported Warfarin Sodium 10 Mg Tab 1 Tab PO HS 03/23/17 Reported [place] 10MG/325MG (Acetaminophen/Hydrocodone Bitart) Tab 1-2 Tabs PO Q6H PRN 12/16/16 Reported PRN PAIN Zyrtec (Cetirizine HCl) 10 Mg Tab 10 Mg PO QPM 12/16/16 Reported Rocaltrol Cap (Calcitriol) 0.25 Mcg Cap 0.25 Mcg PO BID 12/16/16 Reported Oxtellar Xr (Oxcarbazepine) 300 Mg Tab 1 Tab PO BID 12/16/16 Reported Phenergan (Promethazine HCl) 25 Mg Tab 25 Mg PO Q6H PRN 12/16/16 Reported Prilosec (Omeprazole) 40 Mg Cap 40 Mg PO QAM 12/16/16 Reported Bumex (Bumetanide) 2 Mg Tab 2 Mg PO QAM 03/05/16 Reported Normodyne (Labetalol Hcl) 300 Mg Tab 300 Mg PO TID 02/02/16 Reported Provider Instructions Activity Restrictions - No exercising or heavy lifting for 24 hours. - Do not drink alcohol the day of the procedure. - Do not drive a car or operate machinery until the day after the procedure. - Do not make any important decisions or sign important papers in 24 hours after the procedure. Following Day: - Return to full activity which may include returning to work/school. Diet Start your diet with liquids and light foods (jello, soup, juice, toast). Then eat your usual diet if not nauseated. Treatment For Common After Affects For mild abdominal pain, bloating, or excessive gas: - Rest - Eat lightly - Lie on right side Follow-Up Information Follow-up with Dr. Roderick Espino as scheduled Anesthesia Information What You Should Know You have had a procedure that required some medicine to reduce anxiety and discomfort. This treatment is called moderate sedation. After receiving the treatment, you may be sleepy, but you will be able to breathe on your own. The effects of the treatment may last for several hours. Follow these instructions along with Activity/Diet recommendations noted above: * Do NOT do anything where dizziness or clumsiness would be dangerous. * Rest quietly at home today, then you can be up and about tomorrow. * Have a responsible person stay with you the rest of today. * You may have had an I.V. today. If so, you may take the dressing off later today. Recommendations Call your doctor if: * Trouble breathing * Continuous vomiting for more than 24 hours * Temperature above 101 degrees * Severe abdominal pain or bloating * Pain not relieved by pain medicine ordered * There is increased drainage or redness from any incision * A large amount of rectal bleeding greater than 2-3 tablespoons. (If you had a polyp/s removed or have hemorrhoids, a small amount of blood - from the rectum is to be expected.) * You have any unanswered questions or concerns. IN THE EVENT OF A SERIOUS EMERGENCY, GO TO THE NEAREST EMERGENCY ROOM Your discharge instructions were prepared by provider Dave Noriega. Patient Instructions Signature Page Kalyani Diaz Patient (or Guardian) Signature/Date: I have read and understand the instructions given to me by my caregivers. Caregiver/RN/Doctor Signature/Date: The above-named patient and/or guardian has received patient instructions on this date. + Original Patient Signature Page (only) stays with chart. Please make copy for patient.
--- NOTE | 2017-04-06 12:42 | GI REPORT ---
Procedure Date: 04/06/2017 11:52 AM Procedure: Colonoscopy Indications: Hematochezia Medicines: Monitored Anesthesia Care Complications: No immediate complications. Estimated Blood Loss: Estimated blood loss: none. Procedure: Pre-Anesthesia Assessment: - Prior to the procedure, a History and Physical was performed, and patient medications and allergies were reviewed. The patient's tolerance of previous anesthesia was also reviewed. The risks and benefits of the procedure and the sedation options and risks were discussed with the patient. All questions were answered, and informed consent was obtained. Prior Anticoagulants: The patient has taken Coumadin (warfarin), last dose was 6 days prior to procedure. ASA Grade Assessment: IV - A patient with severe systemic disease that is a constant threat to life. After reviewing the risks and benefits, the patient was deemed in satisfactory condition to undergo the procedure. After I obtained informed consent, the scope was passed under direct vision. Throughout the procedure, the patient's blood pressure, pulse, and oxygen saturations were monitored continuously. The scope was introduced through the anus and advanced to the terminal ileum. The colonoscopy was performed without difficulty. The patient tolerated the procedure well. The quality of the bowel preparation was good. The terminal ileum, ileocecal valve, appendiceal orifice, and rectum were photographed. Findings: Multiple small-mouthed diverticula were found in the sigmoid colon. Non-bleeding internal hemorrhoids were found during retroflexion. The hemorrhoids were small. Impression: - Diverticulosis in the sigmoid colon. - Non-bleeding internal hemorrhoids. - No specimens collected. Recommendation: - Resume previous diet. - Continue present medications. - No repeat colonoscopy due to age and the absence of advanced adenomas. - Return to primary care physician as previously scheduled. Dave Noriega, 04/06/2017 12:41:52 PM This report has been signed electronically. Note Initiated On: 04/06/2017 11:52 AM I attest to the content of the Intraoperative Record and orders documented therein, exceptions below
[2017-04-06 13:00] VITALS: BP 133/41; PULSE 65; O2SAT 98
--- NOTE | 2017-04-06 13:02 | Anesthesiology Progress Note ---
Anesthesia Post Op Note Date & Time Apr 06, 2017 at 13:02 Vital Signs Pain Intensity: 0 Vital Signs Past 12 Hours Date Time Temp Pulse Resp B/P (MAP) Pulse Ox O2 Delivery O2 Flow Rate FiO2 04/06/17 13:00 65 18 133/41 (71) 98 Room Air 04/06/17 12:45 65 18 115/44 (67) 98 Room Air 04/06/17 12:30 53 12 103/40 (61) 98 Room Air 04/06/17 11:11 36.8 64 16 133/72 (92) 98 Room Air Notes Mental Status: alert / awake / arousable, participated in evaluation Pt Amnestic to Procedure: Yes Nausea / Vomiting: adequately controlled Pain: adequately controlled Airway Patency, RR, SpO2: stable & adequate BP & HR: stable & adequate Hydration State: stable & adequate Anesthetic Complications: no major complications apparent
== END | disposition home or self-care (01) ==
LOC: C.GI 10:48
PROVIDERS: ATTEND Internal Medicine
DX: K92.1 Melena (principal); K64.8 Other hemorrhoids; K57.30 Diverticulosis of large intestine without perforation or abscess without bleeding; E11.9 Type 2 diabetes mellitus without complications; E78.00 Pure hypercholesterolemia, unspecified; I50.9 Heart failure, unspecified; Z86.73 Personal history of transient ischemic attack (TIA), and cerebral infarction without residual deficits; N28.9 Disorder of kidney and ureter, unspecified; Z96.653 Presence of artificial knee joint, bilateral; Z79.01 Long term (current) use of anticoagulants; Z98.41 Cataract extraction status, right eye; Z98.42 Cataract extraction status, left eye; G47.33 Obstructive sleep apnea (adult) (pediatric); E78.5 Hyperlipidemia, unspecified; I48.0 Paroxysmal atrial fibrillation; K21.9 Gastro-esophageal reflux disease without esophagitis; M19.90 Unspecified osteoarthritis, unspecified site; N18.6 End stage renal disease; Z99.2 Dependence on renal dialysis; I12.9 Hypertensive chronic kidney disease with stage 1 through stage 4 chronic kidney disease, or unspecified chronic kidney disease

== ENCOUNTER → 2017-07-20 | Outpatient (CLI) | payer OTHER ==
[~2017-07-20] VITALS: Ht 152.4 cm; Wt 93.2 kg
[~2017-07-20] MED LIST changes: -EpHEDrine SULFATE 50MG/5ML SYR ONE; -LIDOCAINE HCL 2% 2 ML VIAL (20MG/ML) ONE; -PROPOFOL IV EMULSION 10 MG/ML 20 ML VIAL IV ONE
[2017-07-20 15:08] VITALS: BP 120/70; PULSE 80; Ht 152.4 cm; Wt 93.2 kg
== END | disposition home or self-care (01) ==
LOC: C.NEUR 14:39
PROVIDERS: ATTEND Physician Assistant Medical
DX: G47.33 Obstructive sleep apnea (adult) (pediatric) (principal); G47.34 Idiopathic sleep related nonobstructive alveolar hypoventilation; I48.91 Unspecified atrial fibrillation; I48.0 Paroxysmal atrial fibrillation; E11.9 Type 2 diabetes mellitus without complications; I10 Essential (primary) hypertension; E78.5 Hyperlipidemia, unspecified; N18.6 End stage renal disease; K21.9 Gastro-esophageal reflux disease without esophagitis; E66.01 Morbid (severe) obesity due to excess calories; Z98.51 Tubal ligation status; Z98.890 Other specified postprocedural states; Z86.69 Personal history of other diseases of the nervous system and sense organs; Z86.19 Personal history of other infectious and parasitic diseases; Z87.440 Personal history of urinary (tract) infections; Z79.01 Long term (current) use of anticoagulants; Z88.5 Allergy status to narcotic agent; Z88.1 Allergy status to other antibiotic agents; Z88.8 Allergy status to other drugs, medicaments and biological substances; Z80.3 Family history of malignant neoplasm of breast

== ENCOUNTER → 2017-09-11 | Outpatient (CLI) | payer OTHER | END | disposition home or self-care (01) | LOC: C.LABSPEC 11:13 | PROVIDERS: ATTEND Physician Assistant Medical | DX: S91.309A Unspecified open wound, unspecified foot, initial encounter (principal); X58.XXXA Exposure to other specified factors, initial encounter ==

== ENCOUNTER 2018-09-17 19:28 | Inpatient (IN) ==
[2018-09-17] MEDS ORDERED: PROMETHAZINE 12.5 MG/50.5 ML BAG IV STA (21:57)
[2018-09-17] MEDS: fentaNYL citrate 100 MCG/2 ML VIAL IV PRN (22:33)
--- NOTE | 2018-09-17 22:35 | XRay Report ---
SINGLE VIEW CHEST CLINICAL HISTORY: Fall. FINDINGS: 2 AP, portable, upright chest radiographs are compared to study dated 02/22/2016 and correla alvaro with chest CT dated 02/15/2016. The heart is enlarged and there is atherosclerotic calcification o f the thoracic aorta. There is pulmonary vascular congestion.. Coarsening of interstitium suggests in terstitial edema. No large pleural effusion is identified. There is bibasilar atelectasis. No pneumot horax is seen. The skeletal structures are osteopenic. The bony thorax is grossly intact. Degenerativ e change is noted in the shoulders and thoracic spine. IMPRESSION: 1. Cardiomegaly with evidence of congestive failure. 2. No large pleural effusion is identified. Electronically signed by: Bean Krishna M.D. 09/17/2018 10:34 PM
[2018-09-17 22:36] LABS: Basophils # (auto) 0.02 K/uL (0-0.2); Basophils % (auto) 0.3 %; Eosinophils # (auto) 0.06 K/uL (0-0.5); Eosinophils % (auto) 0.8 %; Hematocrit (blood only) 33.7 % (37-47); Hemoglobin 10.6 g/dL (12.0-16.0); Immature Granulocytes # (auto) 0.03 K/uL (0.00-0.02); Immature Granulocytes % (auto) 0.4 %; Lymphocytes # (auto) 0.94 K/uL (1.2-3.4); Lymphocytes % (auto) 12.8 %; Mean Corpuscular Hgb Conc 31.5 g/dL (32-36); Mean Corpuscular Volume 99.4 fL (80-100); Mean Platelet Volume 9.3 fL (7.4-10.4); Monocytes # (auto) 0.47 K/uL (0.11-0.59); Monocytes % (auto) 6.4 %; Neutrophils # (auto) 5.84 K/uL (1.4-6.5); Neutrophils % (auto) 79.3 %; Platelet Count 177 K/uL (130-400); RDW Coefficient of Variation 18.6 % (11.5-14.5); RDW Standard Deviation 66.5 fL (36.4-46.3); Red Blood Count 3.39 M/uL (4.2-5.4); White Blood Count 7.36 K/uL (4.8-10.8)
--- NOTE | 2018-09-17 22:44 | XRay Report ---
LEFT HIP 2 VIEWS CLINICAL HISTORY: Left hip pain. Fall. FINDINGS: AP and frog-leg views of the left hip are obtained. Comparison is made to study dated 03/24. Correlation is made with pelvic CT dated 07/07/2018. The examination is degraded by large body habitus. The skeletal structures are osteopenic. No fracture is clearly identified. Moderate arthriti c change and joint space narrowing is seen in the left hip. The overlying soft tissues are normal as imaged. IMPRESSION: Osteopenia with no radiographic evidence of acute fracture. Electronically signed by: Bean Krishna M.D. 09/17/2018 10:43 PM
[2018-09-17 22:47] LABS: INR 1.1 (0.9-1.1); Partial Thromboplastin Time 27.5 Seconds (21.0-31.0); Prothrombin Time 10.9 Seconds (9.0-12.0)
[2018-09-17 22:53] LABS: BUN Creatinine Ratio 4.4 (10-20); Calcium 9.7 mg/dl (8.5-10.1); Creatinine Clr Calc Pharmacy 14.5 ml/min; Est GFR (African American) 14.7; Est GFR (Non-African American) 12.7; Potassium 4.1 mmol/L (3.5-5.1)
[2018-09-17 23:01] LABS: Appearance Urine Clear (Clear); Bacteria Urine Automated Negative (Negative); Bilirubin Urine Negative (Negative); Blood Urine Negative (Negative); Color Urine Dark Yellow; Glucose Urine UA Negative (Negative); Ketones Urine Negative (Negative); Leukocyte Esterase Urine Trace (Negative); Nitrite Urine Negative (Negative); RBC Urine Automated 0-4 /hpf (0-4); Specific Gravity Urine 1.014 (1.000-1.030); Urobilinogen Urine Negative (Negative); pH Urine 8.5 (4.5-7.5)
[2018-09-17 23:04] LABS: Protein Urine Negative (Negative)
--- NOTE | 2018-09-18 02:32 | History & Physical Report ---
Date of Service September 18, 2018 Assessment & Plan (1) Hip fracture, left: Patient with intertrochanteric fracture of the left femur after a mechanical fall at home. She spends most of her time in a wheelchair at baseline. Pain is well controlled at present. No additional complaints. She has a number of chronic medical issues which seem to be well managed. She denies history of CAD. She has AF which is rate controlled on Labetalol. Anticoagulation with Coumadin - she was notified on Wednesday that her INR was supratherapeutic at 4 and was told to hold her Coumadin. Her last dose was 07/16/18. INR today is 1.1. CHF is on her problem list. Patient denies this diagnosis. Echocardiogram 10/18/15 with normal LV size, severe LVH, EF normal at 60-65%, no WMA noted. No valvular disease appreciated. No diastolic dysfunction mentioned. No mention of CHF in outpatient documentation either. I do not think she truly carries this diagnosis. Patient is sedentary at baseline, difficult to accurately assess functional status. She denies exertional CP or dyspnea with her activity level. -Admission to medical floor -Pain control with Fentanyl 25mcg IV q 4 hours PRN -Bowel regimen -Nausea control -Consult Orthopedic Surgery -Keep NPO -Patient is medically optimized for surgical intervention in the AM (2) ESRD (end stage renal disease) on dialysis: Patient with ESRD on HD q //. Last full HD treatment on Wednesday. -Consult Nephrology - appreciate assistance -Check PO4 -Continue Bumex at home dose -Continue PhosLo -Renal dosing where appropriate Present on Admission?: Yes (3) Atrial fibrillation: Diagnosed in 2016. Patient presently in rate controlled atrial fibrillation. She is taking Coumadin at home but has not taken it 4 days due to supratherapeutic INR. INR presently 1.1 -Continue Labetalol -Monitor daily INR -Resume Coumadin post-operatively when cleared by surgery team Present on Admission?: Yes (4) Anemia: Patient with chronic anemia. Hg today=10.6 Hct=33.7 which is near baseline. She received 1u PRBCs after her cholecystectomy. Presently no bleeding -CBC in AM (5) Clostridium difficile infection: Patient with c. diff infection following her most recent hospitalization. She recently completed her PO antibiotics. She has had no additional diarrhea. No fevers, abdominal pain or bloating -Minimize antibiotic exposure where able -Florastor daily Present on Admission?: Yes (6) Diabetes: DM on problem list. Patient denies this diagnosis. She does not take medication for DM or check her blood sugar. BS today 134. A1C=6 in March 2018. She dose have DM range A1Cs in her remote past. . -Fingersticks -CC diet as tolerated when diet advanced Present on Admission?: Yes (7) HTN (hypertension): Blood pressure presently 142/89. -Pain control as above -Continue Labetalol and Bumex at home doses -Continue to monitor (8) Trigeminal neuralgia: Chronic. Well controlled -Continue Trileptal at home dose Present on Admission?: Yes (9) CHF (congestive heart failure): Patient with documented history of CHF. She denies having this. Echo from 2017 with normal EF. No clinical evidence of volume overload or CHF -Continue to monitor (10) Cirrhosis: Patient with documented history of liver cirrhosis. Per family this is based on the fact that the liver appeared nodular during surgery. Patient had a CT Abdomen performed during her last hospital admission on 07/07/18 which revealed a slightly nodular contour of the liver. Density consistent with mild hepatic steatosis. Patient with no stigmata of liver disease on physical exam. Coags and platelets WNL. -Consider outpatient workup -LFTs in AM F/E/N - Continue PO Bumex. Electrolytes WNL, check Mg and PO4 x 1 and correct if needed, NPO for surgery in AM Ppx - SCDs to bilateral LEs. Continue home Omeprazole Code - Full per discussion with patient Dispo - Admit to med-surge Present on Admission?: Yes History of Present Illness Chief Complaint: fracture left hip Primary Care Provider: Roderick Espino MD Kalyani Diaz is a pleasant 73yo C female with multiple medical comorbidities, notably AF on Coumadin anticoagulation, ESRD on HD, diet controlled DM presenting with acute fracture of left hip. Patient fell off the commode last evening around 18:30. She was trying to get up and missed her wheelchair. She fell directly onto her left hip. Her family helped her up and she was able to stand. Unable to ambulate. Patient recalls the fall. No LOC or head trauma. No CP/palpitation/dizziness preceding or following the fall. No additional complaints at this time. Pain presently fairly well controlled after Fentanyl. Patient was recently admitted on 07 July 2018 for acute cholecystitis and ascending cholangitis. She had an ERCP with biliary sphincterotomy and stent placement performed on 07/08/18 followed by a laparoscopic cholecystectomy on 07/16/18. She was treated with Zosyn and Cipro for total of 14 days. She was discharged home in stable condition on 07/19/18. The surgery was well tolerated. No complications identified. She was transfused 1 u PRBCs for post-operative anemia, Hg of 7. Patient returned to the hospital on 08/30/18 for stent removal. ER Course: Fentanyl 50mcg, Promethazine 12.5mg Allergies Allergy/AdvReac Type Severity Reaction Status Date / Time ANGEL Inhibitors Allergy Mild Cough Verified 09/17/18 22:51 doxycycline Allergy Mild upset Verified 09/17/18 22:51 stomach simvastatin Allergy Mild "did not Verified 09/17/18 22:51 feel well while taking" metformin Allergy Unknown does not Verified 09/17/18 22:51 remember pioglitazone Allergy Unknown ? NOT SURE Verified 09/17/18 22:51 rosiglitazone Allergy Unknown NOT SURE Verified 09/17/18 22:51 Ogfajgy-Fyb-Xvj Reductase AdvReac Intermediate LEGS HURT Verified 09/17/18 22:51 Inhibitor Cipro AdvReac Mild UPSET Verified 04/06/17 11:43 STOMACH ciprofloxacin AdvReac Mild UPSET Verified 09/17/18 22:51 STOMACH levofloxacin AdvReac Mild ?NAUSEA Verified 09/17/18 22:51 CAT GUT SUTURES Allergy Intermediate SLOW Uncoded 09/17/18 22:51 HEALING,INFLAMED TISSUE Home Medications Home Medications Medication Instructions Recorded Confirmed Type Probiotic 0 mmu cells PO DAILY 07/07/18 09/17/18 History biotin 1 mg PO BID 07/07/18 09/17/18 History bumetanide 2 mg PO BID 07/07/18 09/17/18 History calcium acetate 2 tabs PO QAM 07/07/18 09/17/18 History calcium acetate 3 tab PO UD 07/07/18 09/17/18 History cetirizine [Zyrtec] 10 mg PO DAILY 07/07/18 09/17/18 History cranberry 4,200 mg PO BID 07/07/18 09/17/18 History hydrocodone-acetaminophen [[place]] 1 tab PO TID PRN 07/07/18 09/17/18 History omeprazole 40 mg PO DAILY 07/07/18 09/17/18 History promethazine 25 mg PO Q6 PRN 07/07/18 09/17/18 History labetalol 200 mg PO UD 08/24/18 09/17/18 History oxcarbazepine [Trileptal] 300 mg PO BID 08/24/18 09/17/18 History warfarin [Coumadin] 1 tab PO 3XWK 08/24/18 09/17/18 History warfarin [Coumadin] 10 mg PO 5XWK 08/24/18 09/17/18 History Past Med/Surg History Medical History Clostridium difficile infection 2016 Spinal stenosis Atrial fibrillation Diabetes (Chronic) HTN (hypertension) (Chronic) Carpal tunnel syndrome (Chronic) Trigeminal neuralgia (Chronic) CHF exacerbation CKD (chronic kidney disease) stage 3, GFR 30-59 ml/min DIALYSIS M/W/F [place] CVA (cerebral vascular accident) (Acute) DENIED TIA (transient ischemic attack) (Acute) DENIED Anemia Cirrhosis of liver ESRD (end stage renal disease) receives HD q M/W/F GERD (gastroesophageal reflux disease) Gout Hyperlipidemia Scoliosis Sleep apnea NO DEVICE Spinal stenosis Surgical History AV fistula L upper extremity H/O knee surgery H/O tubal ligation History of ERCP MULTIPLE History of cataract surgery RT/LEFT History of cholecystectomy History of colonoscopy History of esophagogastroduodenoscopy (EGD) History of total knee replacement RT/LEFT Social History Preferred Language: Dutch Beliefs That Will Affect Care: None marital status: Current Living Situation: Family current occupational status: retired Feels Safe at Home: Yes Smoking Status: Never smoker Hx Alcohol Use: No Hx Substance Use: No Review of Systems All systems reviewed & are unremarkable except as noted in HPI & below Physical Exam Vital Signs (Past 24 Hours): Last Vital Signs Temp 37 C 09/17/18 19:44 Pulse 91 H 09/18/18 01:30 Resp 21 09/18/18 01:30 BP 153/78 H 09/18/18 01:30 Pulse Ox 96 09/18/18 01:30 Physical Exam: General: patient resting comfortably, NAD, non-toxic in appearance, AA&O x 4 Skin: warm, dry, intact, scattered ecchymoses on forearms, no rashes or lesions HEENT: NC/AT, PERRL, EOMI, anicteric sclera, conjunctiva without injection, external ear normal to inspection and nontender, nares patent, moist mucus membranes, upper dentures in place, no oropharyngeal lesions, neck supple, trachea midline, no LAD, no thyromegaly, no JVD Heart: +S1/S2, irregularly irregular, no m/r/g Lungs: equal air entry bilaterally, no rales/rhonchi/wheezes Abd: +BS, soft, NT/ND, firm area noted in LLQ, nontender to palpation, no masses/organomegaly/ascites Ext: warm, 2+ pulses in UE/LE bilaterally, no clubbing/cyanosis or edema, AV fistula in LUE with palpable thrill Neuro: nonfocal, patient AA&O x 4, speech intact, no facial droop, moving all extremities on command with equal strength 5/5 Results & Data Laboratory Results Lab Results 09/17/18 09/17/18 09/17/18 Range/Units 22:16 22:16 22:16 WBC 7.36 (4.8-10.8) K/uL RBC 3.39 L (4.2-5.4) M/uL Hgb 10.6 L (12.0-16.0) g/dL Hct 33.7 L (37-47) % MCV 99.4 (80-100) fL MCH 31.3 (25-34) pg MCHC 31.5 L (32-36) g/dL RDW Std Deviation 66.5 H (36.4-46.3) fL RDW Coeff of Alejandra 18.6 H (11.5-14.5) % Plt Count 177 (130-400) K/uL MPV 9.3 (7.4-10.4) fL Immature Gran % (Auto) 0.4 % Neut % (Auto) 79.3 % Lymph % (Auto) 12.8 % [place] % (Auto) 6.4 % Eos % (Auto) 0.8 % Baso % (Auto) 0.3 % Immature Gran # (Auto) 0.03 H (0.00-0.02) K/uL Neut # (Auto) 5.84 (1.4-6.5) K/uL Lymph # (Auto) 0.94 L (1.2-3.4) K/uL [place] # (Auto) 0.47 (0.11-0.59) K/uL Eos # (Auto) 0.06 (0-0.5) K/uL Baso # (Auto) 0.02 (0-0.2) K/uL PT 10.9 (9.0-12.0) Seconds INR 1.1 (0.9-1.1) APTT 27.5 (21.0-31.0) Seconds PTT Ratio 1.0 Sodium 136 (136-145) mmol/L Potassium 4.1 (3.5-5.1) mmol/L Chloride 100 (98-107) mmol/L Carbon Dioxide 30 (21-32) mmol/L Anion Gap 6.0 (3-11) BUN 15 (7-18) mg/dl Creatinine 3.37 H (0.6-1.2) mg/dl Est Cr Clr Drug Dosing 14.5 ml/min Est GFR ( Amer) 14.7 Est GFR (Non-Af Amer) 12.7 BUN/Creatinine Ratio 4.4 L (10-20) Glucose 139 H (70-99) mg/dl Calcium 9.7 (8.5-10.1) mg/dl Urine Color Urine Appearance (Clear) Urine pH (4.5-7.5) Ur Specific [place] (1.000-1.030) Urine Protein (Negative) Urine Glucose (UA) (Negative) Urine Ketones (Negative) Urine Blood (Negative) Urine Nitrite (Negative) Urine Bilirubin (Negative) Urine Urobilinogen (Negative) Ur Leukocyte Esterase (Negative) Urine WBC (Auto) (0-5) /hpf Urine RBC (Auto) (0-4) /hpf U Hyaline Cast (Auto) (0-5) /lpf U Epithel Cells (Auto) (0-5) /lpf Urine Bacteria (Auto) (Negative) Blood Type Antibody Screen 09/17/18 09/17/18 Range/Units 22:16 22:34 WBC (4.8-10.8) K/uL RBC (4.2-5.4) M/uL Hgb (12.0-16.0) g/dL Hct (37-47) % MCV (80-100) fL MCH (25-34) pg MCHC (32-36) g/dL RDW Std Deviation (36.4-46.3) fL RDW Coeff of Alejandra (11.5-14.5) % Plt Count (130-400) K/uL MPV (7.4-10.4) fL Immature Gran % (Auto) % Neut % (Auto) % Lymph % (Auto) % [place] % (Auto) % Eos % (Auto) % Baso % (Auto) % Immature Gran # (Auto) (0.00-0.02) K/uL Neut # (Auto) (1.4-6.5) K/uL Lymph # (Auto) (1.2-3.4) K/uL [place] # (Auto) (0.11-0.59) K/uL Eos # (Auto) (0-0.5) K/uL Baso # (Auto) (0-0.2) K/uL PT (9.0-12.0) Seconds INR (0.9-1.1) APTT (21.0-31.0) Seconds PTT Ratio Sodium (136-145) mmol/L Potassium (3.5-5.1) mmol/L Chloride (98-107) mmol/L Carbon Dioxide (21-32) mmol/L Anion Gap (3-11) BUN (7-18) mg/dl Creatinine (0.6-1.2) mg/dl Est Cr Clr Drug Dosing ml/min Est GFR ( Amer) Est GFR (Non-Af Amer) BUN/Creatinine Ratio (10-20) Glucose (70-99) mg/dl Calcium (8.5-10.1) mg/dl Urine Color Dark Yellow Urine Appearance Clear (Clear) Urine pH 8.5 H (4.5-7.5) Ur Specific [place] 1.014 (1.000-1.030) Urine Protein Negative (Negative) Urine Glucose (UA) Negative (Negative) Urine Ketones Negative (Negative) Urine Blood Negative (Negative) Urine Nitrite Negative (Negative) Urine Bilirubin Negative (Negative) Urine Urobilinogen Negative (Negative) Ur Leukocyte Esterase Trace H (Negative) Urine WBC (Auto) 10-30 H (0-5) /hpf Urine RBC (Auto) 0-4 (0-4) /hpf U Hyaline Cast (Auto) 1-5 (0-5) /lpf U Epithel Cells (Auto) 5-10 H (0-5) /lpf Urine Bacteria (Auto) Negative (Negative) Blood Type O Positive Antibody Screen NEGATIVE Diagnostic Findings SINGLE VIEW CHEST CLINICAL HISTORY: Fall. FINDINGS: 2 AP, portable, upright chest radiographs are compared to study dated 02/22/2016 and correlated with chest CT dated 02/15/2016. The heart is enlarged and there is atherosclerotic calcification of the thoracic aorta. There is pul monary vascular congestion.. Coarsening of interstitium suggests interstitial edema. No large pleural effusion is identified. There is bibasilar atelectasis. No pneumothorax is seen. The skeletal structures are osteopenic. The bony thorax is grossly intact. Degenerative change is noted in the shoulders and thoracic spine. IMPRESSION: 1. Cardiomegaly with evidence of congestive failure. 2. No large pleural effusion is identified. Electronically signed by: Bean Krishna M.D. 09/17/2018 10:34 PM Dictated: 09/17/[id number] Transcribed: 09/17/182231 CT HEAD - No acute intracranial findings ------ CT HIP - Intertrochanteric left proximal femur fracture. No significant malalignment. Mild adjacent soft tissue contusion. Left hip joint is intact ECG Additional Comments: The study shows atrial fibrillation at 92bpm, normal axis, QRS=84, ZPa=367, Low voltage QRS, TWI present in lateral leads Code Status & VTE Plan Code Status FULL (1) Diabetes Diabetes mellitus complication status: without complication Diabetes mellitus detention insulin use: without detention use Diabetes mellitus type: type 2 Qualified Code(s): E11.9 - Type 2 diabetes mellitus without complications (2) Anemia Anemia type: other cause Other causes of anemia: chronic disease, other Qualified Code(s): D63.8 - Anemia in other chronic diseases classified elsewhere (3) Atrial fibrillation Atrial fibrillation type: permanent Qualified Code(s): I48.2 - Chronic atrial fibrillation (4) Hip fracture, left Encounter type: initial encounter Fracture type: closed Qualified Code(s): S72.002A - Fracture of unspecified part of neck of left femur, initial encounter for closed fracture (5) HTN (hypertension) Hypertension type: essential hypertension Qualified Code(s): I10 - Essential (primary) hypertension
[2018-09-18] MEDS: fentaNYL citrate 100 MCG/2 ML VIAL IV PRN (02:36)
[2018-09-18] MEDS ORDERED: CALCIUM ACETATE 667 MG CAP PO PRN (03:13)
[2018-09-18] MEDS ORDERED: fentaNYL citrate 100 MCG/2 ML VIAL IV PRN (03:13)
[2018-09-18] MEDS ORDERED: CARBOHYDRATES FOR HYPOGLYCEMIA PO PRN (03:13)
[2018-09-18] MEDS ORDERED: MAGNESIUM HYDROXIDE SUSP 30 ML UDC PO PRN ×2 (03:13→14:48)
[2018-09-18] MEDS ORDERED: DEXTROSE 50% 50 ML SYRINGE IV PRN (03:13)
[2018-09-18] MEDS ORDERED: PROMETHAZINE HCL 25 MG TAB PO PRN (03:13)
[2018-09-18] MEDS ORDERED: GLUCOSE 40% GEL 15 GM TUBE PO PRN (03:13)
[2018-09-18] MEDS ORDERED: BISACODYL 10 MG SUPP PR PRN ×2 (03:13→14:48)
[2018-09-18] MEDS ORDERED: NALOXONE HCL 0.4 MG/1 ML VIAL/CARP IV PRN ×2 (03:13→14:48)
[2018-09-18] MEDS ORDERED: GLUCAGON FOR INJ 1 MG VIAL SQ PRN (03:13)
[2018-09-18] MEDS ORDERED: GLUCOSE 10 TABS/TUBE PO PRN (03:13)
[2018-09-18 03:55] LABS: Magnesium 1.8 mg/dl (1.8-2.4); Phosphorus 1.6 mg/dl (2.5-4.9)
[2018-09-18] MEDS: HYDROmorphone INJ 0.5 MG/0.5 ML SYR IV PRN ×2 (04:12→09:01)
[2018-09-18] MEDS: INSULIN ASPART 100 UNITS/ML 3 ML PEN SC SCH ×4 (05:53→21:05)
--- NOTE | 2018-09-18 06:04 | CT Scan Report ---
CT head/brain wo con CT DOSE: 614.27 mGy.cm HISTORY: Trauma fall TECHNIQUE: Multiaxial CT images of the head were performed without the use of intravenous contrast. A dose lowering technique was utilized adhering to the principles of ALARA. Comparison: None. Findings: The paranasal sinuses and mastoid air cells are clear. The calvarium and skull base are int act. The ventricles and sulci are within normal limits. There is no mass, hematoma, midline shift, or acute infarct. Age-related atrophy and chronic small vessel change Impression: No acute intracranial abnormality. Age-related change The above report was generated using voice recognition software. It may contain grammatical, syntax or spelling errors. Electronically signed by: Jose Blake M.D. 09/18/2018 6:02 AM
--- NOTE | 2018-09-18 06:06 | CT Scan Report ---
CT hip LT wo con CT DOSE: 642.02 mGy.cm HISTORY: Trauma. Pain. shortened/externally rotated, left hip pain, fall TECHNIQUE: Multiaxial CT images of the left hip were performed and reformatted in the sagittal and co obed plane without the use of contrast. A dose lowering technique was utilized adhering to the prin ciples of KELLY. COMPARISON: None. FINDINGS: Nondisplaced intertrochanteric fracture posterior/lateral margin left hip. Mild degenerativ e change left hip. No evidence for dislocation or acetabular protrusion. Moderate soft tissue edema surrounding the left hip. IMPRESSION: 1. Nondisplaced fracture intertrochanteric region left hip at its posterior lateral location. The above report was generated using voice recognition software. It may contain grammatical, syntax or spelling errors. Electronically signed by: Jose Blake M.D. 09/18/2018 6:05 AM
--- NOTE | 2018-09-18 07:39 | Emergency Department Note ---
History of Present Illness General Chief Complaint: Fall Stated Complaint: FELL, LEFT HIP/LEG PAIN Source: patient Mode of arrival: wheelchair Limitations: no limitations History of Present Illness Provider Complaint: + hip injury Onset (ago): hour(s) (3) Injury: Left: hip Type of Injury: + blunt Place: + home Severity: moderate Maximum Pain Intensity: 7 Current Pain Intensity: 7 Relieved By: + immobilization and + rest Exacerbated By: + weight bearing, + movement and + palpation Context: + fall Associated symptoms: + snap/pop sensation and + unable to bear weight Other symptoms: + none Treatments prior to arrival: + none HPI Narrative: This 73-year-old female patient presents emergency department today, via wheelchair, accompanied by family. Patient states that approximately 6 PM, she was trying to push her wheelchair out of the way to go to the bathroom. Patient states she slipped and fell onto her left hip. The patient does not believe she struck her head, denies any loss of consciousness. She denies any nausea, vomiting, visual disturbances, headache, chest pain, or dyspnea. She is on Coumadin. She has not taken this medication since Wednesday, as she had an elevated INR of 4.0 at that time. She states she did have INR checked on Wednesday, but does not recall the value. The patient does report a history of spinal stenosis. She reports pain in her left hip, and has not been able to ambulate or bear weight on the left lower extremity. The patient normally is ambulatory with a walker, but does spend most of her time in a wheelchair. She has followed in the past with Dr. Miles from orthopedics. The patient denies any history of hip fractures. She is on Coumadin due to A. fib. She is a dialysis patient reports a history of CKD. Home Medications Home Medications Medication Instructions Recorded Confirmed Type Probiotic 0 mmu cells PO DAILY 07/07/18 09/17/18 History biotin 1 mg PO BID 07/07/18 09/17/18 History bumetanide 2 mg PO BID 07/07/18 09/17/18 History calcium acetate 2 tabs PO QAM 07/07/18 09/17/18 History calcium acetate 3 tab PO UD 07/07/18 09/17/18 History cetirizine [Zyrtec] 10 mg PO DAILY 07/07/18 09/17/18 History cranberry 4,200 mg PO BID 07/07/18 09/17/18 History hydrocodone-acetaminophen [Mcdonald] 1 tab PO TID PRN 07/07/18 09/17/18 History omeprazole 40 mg PO DAILY 07/07/18 09/17/18 History promethazine 25 mg PO Q6 PRN 07/07/18 09/17/18 History labetalol 200 mg PO UD 08/24/18 09/17/18 History oxcarbazepine [Trileptal] 300 mg PO BID 08/24/18 09/17/18 History warfarin [Coumadin] 1 tab PO 3XWK 08/24/18 09/17/18 History warfarin [Coumadin] 10 mg PO 5XWK 08/24/18 09/17/18 History Allergies Allergy/AdvReac Type Severity Reaction Status Date / Time ANGEL Inhibitors Allergy Mild Cough Verified 09/17/18 22:51 doxycycline Allergy Mild upset Verified 09/17/18 22:51 stomach simvastatin Allergy Mild "did not Verified 09/17/18 22:51 feel well while taking" metformin Allergy Unknown does not Verified 09/17/18 22:51 remember pioglitazone Allergy Unknown ? NOT SURE Verified 09/17/18 22:51 rosiglitazone Allergy Unknown NOT SURE Verified 09/17/18 22:51 Wvlouok-Isq-Heh Reductase AdvReac Intermediate LEGS HURT Verified 09/17/18 22:51 Inhibitor Cipro AdvReac Mild UPSET Verified 04/06/17 11:43 STOMACH ciprofloxacin AdvReac Mild UPSET Verified 09/17/18 22:51 STOMACH levofloxacin AdvReac Mild ?NAUSEA Verified 09/17/18 22:51 CAT GUT SUTURES Allergy Intermediate SLOW Uncoded 09/17/18 22:51 HEALING,INFLAMED TISSUE Past Med/Surg History Medical History Clostridium difficile infection 2016 Spinal stenosis Atrial fibrillation Diabetes (Chronic) HTN (hypertension) (Chronic) Carpal tunnel syndrome (Chronic) Trigeminal neuralgia (Chronic) CHF exacerbation CKD (chronic kidney disease) stage 3, GFR 30-59 ml/min DIALYSIS M/W/F S[facility] CVA (cerebral vascular accident) (Acute) DENIED TIA (transient ischemic attack) (Acute) DENIED Anemia Cirrhosis of liver ESRD (end stage renal disease) receives HD q M/W/F GERD (gastroesophageal reflux disease) Gout Hyperlipidemia Scoliosis Sleep apnea NO DEVICE Spinal stenosis Surgical History AV fistula L upper extremity H/O knee surgery H/O tubal ligation History of ERCP MULTIPLE History of cataract surgery RT/LEFT History of cholecystectomy History of colonoscopy History of esophagogastroduodenoscopy (EGD) History of total knee replacement RT/LEFT Family History Other Family history non-contributory Social History Communication Ability: Effective Beliefs That Will Affect Care: None marital status: Current Living Situation: Spouse current occupational status: retired Other Information That Helps Us Care for You: No Feels Safe at Home: Yes Safety Concerns: Feels Safe At This Time Smoking Status: Never smoker Hx Alcohol Use: No Hx Substance Use: No Review of Systems A total of 10 systems reviewed and were otherwise negative Physical Exam Vital Signs: Vital Signs - 24 hr 09/18/18 07:14 09/18/18 11:45 09/18/18 14:40 Temperature 36.8 C 37.1 C 36.4 C L Temperature Source Oral Oral Temporal Artery Sc an Pulse Rate [Apical ] 69 77 68 Pulse Rate [Finger ] Pulse Rhythm [Fing er] Pulse Strength [Fi nger] Respiratory Rate 18 16 16 Respiratory Effort / Characteristics Non-Labored Sponta neous Non-Labored Sponta neous Respiratory Depth Normal Normal Respiratory Patter n Regular Regular Blood Pressure [Ri ght Arm] 154/86 H 146/113 H 117/53 L Blood Pressure Tonya n [Right Arm] 108 124 74 Blood Pressure Pos ition [Right Arm] Lying Pulse Oximetry 95 92 95 Oxygen Delivery Me thod Room Air Room Air Oxymask Oxygen Flow Rate 9 09/18/18 14:50 09/18/18 15:00 09/18/18 15:10 Temperature Temperature Source Pulse Rate [Apical ] 68 68 68 Pulse Rate [Finger ] Pulse Rhythm [Fing er] Pulse Strength [Fi nger] Respiratory Rate 16 16 16 Respiratory Effort / Characteristics Non-Labored Sponta neous Non-Labored Sponta neous Non-Labored Sponta neous Respiratory Depth Normal Normal Normal Respiratory Patter n Regular Regular Regular Blood Pressure [Ri ght Arm] 127/54 L 125/92 139/67 Blood Pressure Tonya n [Right Arm] 78 103 91 Blood Pressure Pos ition [Right Arm] Pulse Oximetry 95 95 94 Oxygen Delivery Me thod Oxymask Oxymask Nasal Cannula Oxygen Flow Rate 9 9 3 09/18/18 15:20 09/18/18 15:30 09/18/18 15:40 Temperature Temperature Source Pulse Rate [Apical ] 77 67 62 Pulse Rate [Finger ] Pulse Rhythm [Fing er] Pulse Strength [Fi nger] Respiratory Rate 16 16 16 Respiratory Effort / Characteristics Non-Labored Sponta neous Non-Labored Sponta neous Non-Labored Sponta neous Respiratory Depth Normal Normal Normal Respiratory Patter n Regular Regular Regular Blood Pressure [[facility]] 143/61 H 146/60 H 137/56 L Blood Pressure Tonya n [Right Arm] 88 88 83 Blood Pressure Pos ition [Right Arm] Pulse Oximetry 94 96 96 Oxygen Delivery Me thod Nasal Cannula Nasal Cannula Nasal Cannula Oxygen Flow Rate 3 3 3 09/18/18 15:50 09/18/18 16:00 09/18/18 16:15 Temperature 36.7 C Temperature Source Temporal Artery Sc an Pulse Rate [Apical ] 67 67 Pulse Rate [Finger ] Pulse Rhythm [Fing er] Pulse Strength [Fi nger] Respiratory Rate 16 16 Respiratory Effort / Characteristics Non-Labored Sponta neous Non-Labored Sponta neous Non-Labored Sponta neous Respiratory Depth Normal Normal Normal Respiratory Patter n Regular Regular Regular Blood Pressure [[facility] Arm] 147/60 H 154/60 H Blood Pressure Tonya n [Right Arm] 89 91 Blood Pressure Pos ition [Right Arm] Pulse Oximetry 94 96 Oxygen Delivery Me thod Nasal Cannula Nasal Cannula Nasal Cannula Oxygen Flow Rate 3 3 3 09/18/18 16:45 09/18/18 17:15 09/18/18 18:16 Temperature 36.3 C L 36.7 C 36.9 C Temperature Source Oral Oral Oral Pulse Rate [Apical ] Pulse Rate [Finger ] 74 80 90 Pulse Rhythm [Fing er] Regular Pulse Strength [Fi nger] Normal Respiratory Rate 16 16 16 Respiratory Effort / Characteristics Non-Labored Sponta neous Non-Labored Sponta neous Non-Labored Sponta neous Respiratory Depth Normal Normal Normal Respiratory Patter n Regular Regular Blood Pressure [[facility] Arm] 160/92 H 156/87 H 151/73 H Blood Pressure Tonya n [Right Arm] 114 110 99 Blood Pressure Pos ition [Right Arm] Lying Lying Lying Pulse Oximetry 99 99 96 Oxygen Delivery Me thod Nasal Cannula Nasal Cannula Nasal Cannula Oxygen Flow Rate 3 3 2 09/18/18 19:15 09/18/18 23:09 09/18/18 23:20 Temperature 36.9 C 36.8 C Temperature Source Oral Oral Pulse Rate [Apical ] Pulse Rate [Finger ] 99 H 96 H Pulse Rhythm [Fing er] Regular Regular Pulse Strength [Fi nger] Normal Normal Respiratory Rate 18 16 Respiratory Effort / Characteristics Non-Labored Sponta neous Non-Labored Sponta neous Respiratory Depth Normal Normal Normal Respiratory Patter n Regular Regular Blood Pressure [Ri ght Arm] 128/80 119/73 Blood Pressure Tonya n [Right Arm] 96 88 Blood Pressure Pos ition [Right Arm] Lying Lying Pulse Oximetry 97 98 Oxygen Delivery Me thod Nasal Cannula Nasal Cannula Nasal Cannula Oxygen Flow Rate 2 1.0 1 09/19/18 03:23 Temperature 36.9 C Temperature Source Oral Pulse Rate [Apical ] Pulse Rate [Finger ] 82 Pulse Rhythm [Fing er] Regular Pulse Strength [Fi nger] Normal Respiratory Rate 16 Respiratory Effort / Characteristics Respiratory Depth Normal Respiratory Patter n Blood Pressure [Ri ght Arm] 133/79 Blood Pressure Tonya n [Right Arm] 97 Blood Pressure Pos ition [Right Arm] Lying Pulse Oximetry 96 Oxygen Delivery Me thod Nasal Cannula Oxygen Flow Rate 1.0 Physical Exam: VITALS: Vitals are noted on the nurse's note and reviewed by myself. Vital signs stable. GENERAL: This is a 73-year-old obese white female, in no acute distress, nondiaphoretic, well-developed well-nourished. SKIN: The skin was without rashes, erythema, edema, or bruising. There is no tenting of the skin. Capillary reflex less than 2 seconds. HEAD: Normocephalic atraumatic. EARS: External auditory canals clear, tympanic membranes pearly padron without erythema or effusion bilaterally. EYES: Pupils equal round and reactive to light and accommodation. Conjunctivae without injection, sclerae without icterus. Extraocular movements intact. NOSE: Patent, turbinates without inflammation or discharge. No sinus tenderness. MOUTH: Mucous membranes moist. Tonsils are not enlarged. Pharynx without erythema or exudate. Uvula midline. Airway patent. Tongue does not deviate. NECK: Supple without nuchal rigidity. No lymphadenopathy. No thyromegaly. Cervical spine is nontender. No JVD. HEART: Irregularly irregular. No murmurs gallops or rubs. LUNGS: Clear to auscultation bilaterally without wheezes, rales or rhonchi. No dullness to percussion. No retractions or accessory muscle use. ABDOMEN: Positive bowel sounds x 4. Normal tympanic percussion. Soft, nontender, without masses or organomegaly. Ruiz sign negative. No guarding or rebound tenderness. MUSCULOSKELETAL: The left lower extremity is shortened and externally rotated. The patient is unable to bear weight on the left lower extremity. She does have good range of motion of the distal left lower extremity at the knee, ankle, and toes. Strength of the left lower extremity 4/5. No muscle atrophy, erythema, or edema noted. Full range of motion without joint tenderness in all extremities. No tenderness to palpation. Strength 5/5 throughout except as noted. NEURO: Patient was alert and oriented to person place and time. Normal sensation to light and sharp touch. Deep tendon reflexes 2+ throughout. No focal neurological deficits. Course The patient was seen and evaluated as above. IV access obtained, labs drawn. Patient was medicated with IV and promethazine. X-rays performed and reviewed by myself and radiologist as above. Labs reviewed by myself. I discussed the findings with the patient at bedside. CT scans performed reviewed by myself and radiologist as above. I discussed the case with my attending. I discussed the case with Dr. Seymour, [facility] hospitalist. She did agree to see and evaluate the patient. I did speak with Dr. Angeles and advised him of the fracture. He requested admission to medicine, asked that the patient remain n.p.o., and they will consult in the morning. Administered Medications Hydrocodone Bitart/Acetaminophen (Mcdonald 10/325) 1 tab PO TID PRN PRN Reason: Pain Stop: 10/02/18 14:47 Last Admin: 09/18/18 21:06 Dose: 1 tab Documented by: [id number] Bumetanide (Bumex) 2 mg PO [id number] [facility] Stop: 10/18/18 08:59 Last Admin: 09/18/18 17:19 Dose: 2 mg Documented by: [id number] Admin: 09/18/18 08:52 Dose: Not Given Documented by: [id number] Calcium Acetate (Phoslo) 1,334 mg PO QAM [facility] Stop: 10/18/18 08:59 Last Admin: 09/18/18 08:53 Dose: Not Given Documented by: [id number] Cetirizine HCl (Zyrtec) 10 mg PO DAILY [facility] Stop: 10/18/18 08:59 Last Admin: 09/18/18 08:53 Dose: Not Given Documented by: [id number] Hydromorphone HCl (Dilaudid) 0.25 mg IV Q4H PRN PRN Reason: Pain Stop: 10/02/18 03:39 Last Admin: 09/18/18 09:01 Dose: 0.25 mg Documented by: [id number] Admin: 09/18/18 04:12 Dose: 0.25 mg Documented by: [id number] Insulin Aspart (Novolog Flexpen) 0 units SC ACHS [facility] Stop: 10/18/18 05:59 Last Admin: 09/18/18 21:05 Dose: Not Given Documented by: [id number] Cosigned by: [id number] Admin: 09/18/18 18:17 Dose: 1 units Documented by: [id number] Cosigned by: [id number] Labetalol HCl (Normodyne) 200 mg PO SuTuThSa@0900,1400 [facility] Stop: 10/18/18 08:59 Last Admin: 09/18/18 13:47 Dose: Not Given Documented by: [id number] Admin: 09/18/18 08:52 Dose: Not Given Documented by: [id number] Labetalol HCl (Normodyne) 200 mg PO SuTuThSa@2100 [facility] Stop: 10/18/18 20:59 Last Admin: 09/18/18 21:08 Dose: 200 mg Documented by: [id number] Ondansetron HCl (Zofran) 4 mg IV Q6H PRN PRN Reason: Nausea And Vomiting Stop: 10/18/18 03:12 Last Admin: 09/18/18 21:10 Dose: 4 mg Documented by: [id number] Oxcarbazepine (Trileptal) 300 mg PO BID [facility] Stop: 10/18/18 08:59 Last Admin: 09/18/18 21:06 Dose: 300 mg Documented by: [id number] Admin: 09/18/18 08:53 Dose: Not Given Documented by: [id number] Pantoprazole Sodium (Protonix) 40 mg PO DAILY [facility] Stop: 10/18/18 08:59 Last Admin: 09/18/18 08:53 Dose: Not Given Documented by: [id number] Saccharomyces Boulardii (Florastor) 250 mg PO DAILY [facility] Stop: 10/18/18 08:59 Last Admin: 09/18/18 08:52 Dose: Not Given Documented by: [id number] Senna/Docusate Sodium (Senokot S) 2 tab PO [facility] Stop: 10/18/18 20:59 Last Admin: 09/18/18 21:09 Dose: 2 tab Documented by: [id number] Admin: 09/18/18 21:07 Dose: 2 tab Documented by: [id number] Sennosides (Senokot) 17.2 mg PO [facility] Stop: 10/18/18 20:59 Last Admin: 09/18/18 21:09 Dose: Not Given Documented by: [id number] Warfarin Sodium (Coumadin) 7.5 mg PO SuTuThSa@1600 [facility] Stop: 10/18/18 16:59 Last Admin: 09/18/18 17:30 Dose: 7.5 mg Documented by: [id number] Discontinued Medications Bupivacaine HCl/Epinephrine Bitart (Sensorcaine/Epinephrine 0.5% Mpf 1:200,000) Confirm Administered Dose 30 ml .ROUTE .STK-MED ONE Stop: 09/18/18 12:26 Last Admin: 09/18/18 14:19 Dose: 30 ml Documented by: [id number] Fentanyl Citrate (Fentanyl Citrate) 50 mcg IV Q15M PRN PRN Reason: Pain Stop: 10/01/18 21:56 Last Admin: 09/18/18 02:36 Dose: 50 mcg Documented by: [id number] Admin: 09/17/18 22:33 Dose: 50 mcg Documented by: [id number] Hydromorphone HCl (Dilaudid) Confirm Administered Dose 1 mg .ROUTE .STK-MED ONE Stop: 09/18/18 15:29 Last Increment: 09/18/18 15:39 Dose: 0.25 mg Documented by: [id number] Increment: 09/18/18 15:30 Dose: 0.25 mg Documented by: [id number] Promethazine HCl (Phenergan) 12.5 mg in 50.5 mls @ 202 mls/hr IV NOW STA Stop: 09/17/18 22:11 Last Infusion: 09/17/18 22:48 Dose: 0 mls/hr Documented by: [id number] Admin: 09/17/18 22:33 Dose: 202 mls/hr Documented by: [id number] Cefazolin Sodium (Ancef 2000mg) 2,000 mg in 15 mls @ 3.75 mls/min IV PREOP [facility] Stop: 09/18/18 23:59 Last Admin: 09/18/18 12:01 Dose: 3.75 mls/min Documented by: [id number] Sodium Chloride (Nss 1000ml) 1,000 mls @ 15 mls/hr IV .Q24H [facility] Stop: 10/18/18 15:29 Last Admin: 09/18/18 16:54 Dose: Not Given Documented by: [id number] Cefazolin Sodium (Ancef 2000mg) 2,000 mg in 15 mls @ 3.75 mls/min IV Q8H GLENIS; Protocol Stop: 09/19/18 04:03 Last Admin: 09/19/18 04:23 Dose: 3.75 mls/min Documented by: [id number] Admin: 09/18/18 20:44 Dose: 3.75 mls/min Documented by: [id number] Promethazine HCl 6.25 mg/ (Sodium Chloride) 50.25 mls @ 201 mls/hr IV NOW STA Stop: 09/18/18 15:38 Last Infusion: 09/18/18 16:42 Dose: 0 mls/hr Documented by: [id number] Admin: 09/18/18 15:46 Dose: 201 mls/hr Documented by: [id number] Insulin Aspart (Novolog Flexpen) 0 units SC Q6 [facility] Stop: 10/18/18 05:59 Last Admin: 09/18/18 12:48 Dose: Not Given Documented by: [id number] Cosigned by: [id number] Admin: 09/18/18 05:53 Dose: Not Given Documented by: [id number] Cosigned by: [id number] Lidocaine/Epinephrine (Xylocaine/Epinephrine 1%) Confirm Administered Dose 20 ml .ROUTE .STK-MED ONE Stop: 09/18/18 12:26 Last Admin: 09/18/18 14:20 Dose: 20 ml Documented by: [id number] Povidone Iodine (Betadine Ophthalmic Prep) Confirm Administered Dose 30 ml .ROUTE .STK-MED ONE Stop: 09/18/18 13:55 Last Admin: 09/18/18 14:23 Dose: 20 ml Documented by: [id number] Warfarin Sodium (Coumadin) 10 mg PO Fer@1600 [facility] Stop: 10/18/18 15:59 Last Admin: 09/18/18 17:11 Dose: Not Given Documented by: [id number] Medical Decision Making Differential Diagnosis + ankle sprain and strain, + acute internal derangement of knee, + puncture wound of foot, + muscular strain, + dislocation, + fracture, + DVT, + joint effusion, + infection, + soft tissure injury, + vascular compromise and + compartment syndrome Home Medications Current Medication List: was personally reviewed by me Laboratory Data Attestation: I reviewed the patient's lab results. No leukocytosis, thrombocytopenia. Chronic anemia noted. INR 1.1. Creatinine 3.37. This is consistent with previous labs. electrolytes without significant abnormality. Urinalysis without evidence of infection. Result diagrams: 09/19/18 05:26 09/18/18 08:00 Lab Results 09/17/18 09/17/18 09/17/18 Range/Units 22:16 22:16 22:16 WBC 7.36 (4.8-10.8) K/uL RBC 3.39 L (4.2-5.4) M/uL Hgb 10.6 L (12.0-16.0) g/dL Hct 33.7 L (37-47) % MCV 99.4 (80-100) fL MCH 31.3 (25-34) pg MCHC 31.5 L (32-36) g/dL RDW Std Deviation 66.5 H (36.4-46.3) fL RDW Coeff of Alejandra 18.6 H (11.5-14.5) % Plt Count 177 (130-400) K/uL MPV 9.3 (7.4-10.4) fL Immature Gran % (Auto) 0.4 % Neut % (Auto) 79.3 % Lymph % (Auto) 12.8 % [place] % (Auto) 6.4 % Eos % (Auto) 0.8 % Baso % (Auto) 0.3 % Immature Gran # (Auto) 0.03 H (0.00-0.02) K/uL Neut # (Auto) 5.84 (1.4-6.5) K/uL Lymph # (Auto) 0.94 L (1.2-3.4) K/uL [place] # (Auto) 0.47 (0.11-0.59) K/uL Eos # (Auto) 0.06 (0-0.5) K/uL Baso # (Auto) 0.02 (0-0.2) K/uL Absolute Nucleated RBC (0-0) K/uL Nucleated RBC % (auto) % PT 10.9 (9.0-12.0) Seconds INR 1.1 (0.9-1.1) APTT 27.5 (21.0-31.0) Seconds PTT Ratio 1.0 Sodium 136 (136-145) mmol/L Potassium 4.1 (3.5-5.1) mmol/L Chloride 100 (98-107) mmol/L Carbon Dioxide 30 (21-32) mmol/L Anion Gap 6.0 (3-11) BUN 15 (7-18) mg/dl Creatinine 3.37 H (0.6-1.2) mg/dl Est Cr Clr Drug Dosing 14.5 ml/min Est GFR ( Amer) 14.7 Est GFR (Non-Af Amer) 12.7 BUN/Creatinine Ratio 4.4 L (10-20) Glucose 139 H (70-99) mg/dl POC Glucose (70-99) Calcium 9.7 (8.5-10.1) mg/dl Phosphorus 1.6 L (2.5-4.9) mg/dl Magnesium 1.8 (1.8-2.4) mg/dl Total Bilirubin (0.2-1) mg/dl AST (15-37) U/L ALT (12-78) U/L Alkaline Phosphatase (45-117) U/L Total Protein (6.4-8.2) gm/dl Albumin (3.4-5.0) gm/dl Globulin (2.5-4.0) gm/dl Albumin/Globulin Ratio (0.9-2) Urine Color Urine Appearance (Clear) Urine pH (4.5-7.5) Ur Specific [place] (1.000-1.030) Urine Protein (Negative) Urine Glucose (UA) (Negative) Urine Ketones (Negative) Urine Blood (Negative) Urine Nitrite (Negative) Urine Bilirubin (Negative) Urine Urobilinogen (Negative) Ur Leukocyte Esterase (Negative) Urine WBC (Auto) (0-5) /hpf Urine RBC (Auto) (0-4) /hpf U Hyaline Cast (Auto) (0-5) /lpf U Epithel Cells (Auto) (0-5) /lpf Urine Bacteria (Auto) (Negative) Nasal Screen MRSA (PCR) (Negative) Blood Type Antibody Screen 09/17/18 09/17/18 09/18/18 Range/Units 22:16 22:34 03:55 WBC (4.8-10.8) K/uL RBC (4.2-5.4) M/uL Hgb (12.0-16.0) g/dL Hct (37-47) % MCV (80-100) fL MCH (25-34) pg MCHC (32-36) g/dL RDW Std Deviation (36.4-46.3) fL RDW Coeff of Alejandra (11.5-14.5) % Plt Count (130-400) K/uL MPV (7.4-10.4) fL Immature Gran % (Auto) % Neut % (Auto) % Lymph % (Auto) % [place] % (Auto) % Eos % (Auto) % Baso % (Auto) % Immature Gran # (Auto) (0.00-0.02) K/uL Neut # (Auto) (1.4-6.5) K/uL Lymph # (Auto) (1.2-3.4) K/uL [place] # (Auto) (0.11-0.59) K/uL Eos # (Auto) (0-0.5) K/uL Baso # (Auto) (0-0.2) K/uL Absolute Nucleated RBC (0-0) K/uL Nucleated RBC % (auto) % PT (9.0-12.0) Seconds INR (0.9-1.1) APTT (21.0-31.0) Seconds PTT Ratio Sodium (136-145) mmol/L Potassium (3.5-5.1) mmol/L Chloride (98-107) mmol/L Carbon Dioxide (21-32) mmol/L Anion Gap (3-11) BUN (7-18) mg/dl Creatinine (0.6-1.2) mg/dl Est Cr Clr Drug Dosing ml/min Est GFR ( Amer) Est GFR (Non-Af Amer) BUN/Creatinine Ratio (10-20) Glucose (70-99) mg/dl POC Glucose (70-99) Calcium (8.5-10.1) mg/dl Phosphorus (2.5-4.9) mg/dl Magnesium (1.8-2.4) mg/dl Total Bilirubin (0.2-1) mg/dl AST (15-37) U/L ALT (12-78) U/L Alkaline Phosphatase (45-117) U/L Total Protein (6.4-8.2) gm/dl Albumin (3.4-5.0) gm/dl Globulin (2.5-4.0) gm/dl Albumin/Globulin Ratio (0.9-2) Urine Color Dark Yellow Urine Appearance Clear (Clear) Urine pH 8.5 H (4.5-7.5) Ur Specific [place] 1.014 (1.000-1.030) Urine Protein Negative (Negative) Urine Glucose (UA) Negative (Negative) Urine Ketones Negative (Negative) Urine Blood Negative (Negative) Urine Nitrite Negative (Negative) Urine Bilirubin Negative (Negative) Urine Urobilinogen Negative (Negative) Ur Leukocyte Esterase Trace H (Negative) Urine WBC (Auto) 10-30 H (0-5) /hpf Urine RBC (Auto) 0-4 (0-4) /hpf U Hyaline Cast (Auto) 1-5 (0-5) /lpf U Epithel Cells (Auto) 5-10 H (0-5) /lpf Urine Bacteria (Auto) Negative (Negative) Nasal Screen MRSA (PCR) Negative (Negative) Blood Type O Positive Antibody Screen NEGATIVE 09/18/18 09/18/18 09/18/18 Range/Units 05:37 08:00 08:00 WBC 5.08 (4.8-10.8) K/uL RBC 3.21 L (4.2-5.4) M/uL Hgb 10.0 L (12.0-16.0) g/dL Hct 31.8 L (37-47) % MCV 99.1 (80-100) fL MCH 31.2 (25-34) pg MCHC 31.4 L (32-36) g/dL RDW Std Deviation 66.4 H (36.4-46.3) fL RDW Coeff of Alejandra 18.8 H (11.5-14.5) % Plt Count 160 (130-400) K/uL MPV 8.9 (7.4-10.4) fL Immature Gran % (Auto) % Neut % (Auto) % Lymph % (Auto) % [place] % (Auto) % Eos % (Auto) % Baso % (Auto) % Immature Gran # (Auto) (0.00-0.02) K/uL Neut # (Auto) (1.4-6.5) K/uL Lymph # (Auto) (1.2-3.4) K/uL [place] # (Auto) (0.11-0.59) K/uL Eos # (Auto) (0-0.5) K/uL Baso # (Auto) (0-0.2) K/uL Absolute Nucleated RBC 0.04 H (0-0) K/uL Nucleated RBC % (auto) 0.7 % PT 11.0 (9.0-12.0) Seconds INR 1.1 (0.9-1.1) APTT (21.0-31.0) Seconds PTT Ratio Sodium (136-145) mmol/L Potassium (3.5-5.1) mmol/L Chloride (98-107) mmol/L Carbon Dioxide (21-32) mmol/L Anion Gap (3-11) BUN (7-18) mg/dl Creatinine (0.6-1.2) mg/dl Est Cr Clr Drug Dosing ml/min Est GFR ( Amer) Est GFR (Non-Af Amer) BUN/Creatinine Ratio (10-20) Glucose (70-99) mg/dl POC Glucose 112 H (70-99) Calcium (8.5-10.1) mg/dl Phosphorus (2.5-4.9) mg/dl Magnesium (1.8-2.4) mg/dl Total Bilirubin (0.2-1) mg/dl AST (15-37) U/L ALT (12-78) U/L Alkaline Phosphatase (45-117) U/L Total Protein (6.4-8.2) gm/dl Albumin (3.4-5.0) gm/dl Globulin (2.5-4.0) gm/dl Albumin/Globulin Ratio (0.9-2) Urine Color Urine Appearance (Clear) Urine pH (4.5-7.5) Ur Specific [place] (1.000-1.030) Urine Protein (Negative) Urine Glucose (UA) (Negative) Urine Ketones (Negative) Urine Blood (Negative) Urine Nitrite (Negative) Urine Bilirubin (Negative) Urine Urobilinogen (Negative) Ur Leukocyte Esterase (Negative) Urine WBC (Auto) (0-5) /hpf Urine RBC (Auto) (0-4) /hpf U Hyaline Cast (Auto) (0-5) /lpf U Epithel Cells (Auto) (0-5) /lpf Urine Bacteria (Auto) (Negative) Nasal Screen MRSA (PCR) (Negative) Blood Type Antibody Screen 09/18/18 09/18/18 09/18/18 Range/Units 08:00 15:01 17:29 WBC (4.8-10.8) K/uL RBC (4.2-5.4) M/uL Hgb (12.0-16.0) g/dL Hct (37-47) % MCV (80-100) fL MCH (25-34) pg MCHC (32-36) g/dL RDW Std Deviation (36.4-46.3) fL RDW Coeff of Alejandra (11.5-14.5) % Plt Count (130-400) K/uL MPV (7.4-10.4) fL Immature Gran % (Auto) % Neut % (Auto) % Lymph % (Auto) % [place] % (Auto) % Eos % (Auto) % Baso % (Auto) % Immature Gran # (Auto) (0.00-0.02) K/uL Neut # (Auto) (1.4-6.5) K/uL Lymph # (Auto) (1.2-3.4) K/uL [place] # (Auto) (0.11-0.59) K/uL Eos # (Auto) (0-0.5) K/uL Baso # (Auto) (0-0.2) K/uL Absolute Nucleated RBC (0-0) K/uL Nucleated RBC % (auto) % PT (9.0-12.0) Seconds INR (0.9-1.1) APTT (21.0-31.0) Seconds PTT Ratio Sodium 136 (136-145) mmol/L Potassium 4.3 (3.5-5.1) mmol/L Chloride 101 (98-107) mmol/L Carbon Dioxide 30 (21-32) mmol/L Anion Gap 6.0 (3-11) BUN 18 (7-18) mg/dl Creatinine 3.46 H (0.6-1.2) mg/dl Est Cr Clr Drug Dosing 14.1 ml/min Est GFR ( Amer) 14.2 Est GFR (Non-Af Amer) 12.3 BUN/Creatinine Ratio 5.1 L (10-20) Glucose 124 H (70-99) mg/dl POC Glucose 163 H 157 H (70-99) Calcium 9.3 (8.5-10.1) mg/dl Phosphorus 1.7 L (2.5-4.9) mg/dl Magnesium 1.9 (1.8-2.4) mg/dl Total Bilirubin 0.7 (0.2-1) mg/dl AST 19 (15-37) U/L ALT 17 (12-78) U/L Alkaline Phosphatase 90 (45-117) U/L Total Protein 6.7 (6.4-8.2) gm/dl Albumin 2.9 L (3.4-5.0) gm/dl Globulin 3.8 (2.5-4.0) gm/dl Albumin/Globulin Ratio 0.8 L (0.9-2) Urine Color Urine Appearance (Clear) Urine pH (4.5-7.5) Ur Specific [place] (1.000-1.030) Urine Protein (Negative) Urine Glucose (UA) (Negative) Urine Ketones (Negative) Urine Blood (Negative) Urine Nitrite (Negative) Urine Bilirubin (Negative) Urine Urobilinogen (Negative) Ur Leukocyte Esterase (Negative) Urine WBC (Auto) (0-5) /hpf Urine RBC (Auto) (0-4) /hpf U Hyaline Cast (Auto) (0-5) /lpf U Epithel Cells (Auto) (0-5) /lpf Urine Bacteria (Auto) (Negative) Nasal Screen MRSA (PCR) (Negative) Blood Type Antibody Screen 09/18/18 09/19/18 Range/Units 20:43 05:26 WBC 5.85 (4.8-10.8) K/uL RBC 2.97 L (4.2-5.4) M/uL Hgb 9.3 L (12.0-16.0) g/dL Hct 29.6 L (37-47) % MCV 99.7 (80-100) fL MCH 31.3 (25-34) pg MCHC 31.4 L (32-36) g/dL RDW Std Deviation 68.9 H (36.4-46.3) fL RDW Coeff of Alejandra 19.5 H (11.5-14.5) % Plt Count 139 (130-400) K/uL MPV 8.8 (7.4-10.4) fL Immature Gran % (Auto) 0.3 % Neut % (Auto) 72.6 % Lymph % (Auto) 16.8 % [place] % (Auto) 7.9 % Eos % (Auto) 1.9 % Baso % (Auto) 0.5 % Immature Gran # (Auto) 0.02 (0.00-0.02) K/uL Neut # (Auto) 4.25 (1.4-6.5) K/uL Lymph # (Auto) 0.98 L (1.2-3.4) K/uL [place] # (Auto) 0.46 (0.11-0.59) K/uL Eos # (Auto) 0.11 (0-0.5) K/uL Baso # (Auto) 0.03 (0-0.2) K/uL Absolute Nucleated RBC (0-0) K/uL Nucleated RBC % (auto) % PT (9.0-12.0) Seconds INR (0.9-1.1) APTT (21.0-31.0) Seconds PTT Ratio Sodium (136-145) mmol/L Potassium (3.5-5.1) mmol/L Chloride (98-107) mmol/L Carbon Dioxide (21-32) mmol/L Anion Gap (3-11) BUN (7-18) mg/dl Creatinine (0.6-1.2) mg/dl Est Cr Clr Drug Dosing ml/min Est GFR ( Amer) Est GFR (Non-Af Amer) BUN/Creatinine Ratio (10-20) Glucose (70-99) mg/dl POC Glucose 134 H (70-99) Calcium (8.5-10.1) mg/dl Phosphorus (2.5-4.9) mg/dl Magnesium (1.8-2.4) mg/dl Total Bilirubin (0.2-1) mg/dl AST (15-37) U/L ALT (12-78) U/L Alkaline Phosphatase (45-117) U/L Total Protein (6.4-8.2) gm/dl Albumin (3.4-5.0) gm/dl Globulin (2.5-4.0) gm/dl Albumin/Globulin Ratio (0.9-2) Urine Color Urine Appearance (Clear) Urine pH (4.5-7.5) Ur Specific [place] (1.000-1.030) Urine Protein (Negative) Urine Glucose (UA) (Negative) Urine Ketones (Negative) Urine Blood (Negative) Urine Nitrite (Negative) Urine Bilirubin (Negative) Urine Urobilinogen (Negative) Ur Leukocyte Esterase (Negative) Urine WBC (Auto) (0-5) /hpf Urine RBC (Auto) (0-4) /hpf U Hyaline Cast (Auto) (0-5) /lpf U Epithel Cells (Auto) (0-5) /lpf Urine Bacteria (Auto) (Negative) Nasal Screen MRSA (PCR) (Negative) Blood Type Antibody Screen Imaging Data Radiologist's Impression: LEFT HIP 2 VIEWS CLINICAL HISTORY: Left hip pain. Fall. FINDINGS: AP and frog-leg views of the left hip are obtained. Comparison is made to study dated 03/24/2006. Correlation is made with pelvic CT dated 07/07/2018. The examination is degraded by large body habitus. The skeletal structures are osteopenic. No fracture is clearly identified. Moderate arthritic change and joint space narrowing is seen in the left hip. The overlying soft tissues are normal as imaged. IMPRESSION: Osteopenia with no radiographic evidence of acute fracture. Electronically signed by: Bean Krishna M.D. 09/17/2018 10:43 PM SINGLE VIEW CHEST CLINICAL HISTORY: Fall. FINDINGS: 2 AP, portable, upright chest radiographs are compared to study dated 02/22/2016 and correlated with chest CT dated 02/15/2016. The heart is enlarged and there is atherosclerotic calcification of the thoracic aorta. There is pulmonary vascular congestion.. Coarsening of interstitium suggests interstitial edema. No large pleural effusion is identified. There is bibasilar atelectasis. No pneumothorax is seen. The skeletal structures are osteopenic. The bony thorax is grossly intact. Degenerative change is noted in the shoulders and thoracic spine. IMPRESSION: 1. Cardiomegaly with evidence of congestive failure. 2. No large pleural effusion is identified. Electronically signed by: Bean Krishna M.D. 09/17/2018 10:[address] head/brain wo con CT DOSE: 614.27 mGy.cm HISTORY: Trauma fall TECHNIQUE: Multiaxial CT images of the head were performed without the use of intravenous contrast. A dose lowering technique was utilized adhering to the principles of ALARA. Comparison: None. Findings: The paranasal sinuses and mastoid air cells are clear. The calvarium and skull base are intact. The ventricles and sulci are within normal limits. There is no mass, hematoma, midline shift, or acute infarct. Age-related atrophy and chronic small vessel change Impression: No acute intracranial abnormality. Age-related change The above report was generated using voice recognition software. It may contain grammatical, syntax or spelling errors. Electronically signed by: Jose Blake M.D. 09/18/2018 6:[address] hip LT wo con CT DOSE: 642.02 mGy.cm HISTORY: Trauma. Pain. shortened/externally rotated, left hip pain, fall TECHNIQUE: Multiaxial CT images of the left hip were performed and reformatted in the sagittal and coronal plane without the use of contrast. A dose lowering technique was utilized adhering to the principles of ALARA. COMPARISON: None. FINDINGS: Nondisplaced intertrochanteric fracture posterior/lateral margin left hip. Mild degenerative change left hip. No evidence for dislocation or acetabular protrusion. Moderate soft tissue edema surrounding the left hip. IMPRESSION: 1. Nondisplaced fracture intertrochanteric region left hip at its posterior lateral location. The above report was generated using voice recognition software. It may contain grammatical, syntax or spelling errors. Electronically signed by: Jose Blake M.D. 09/18/2018 6:05 AM ECG Data Attestation: I personally reviewed and interpreted this ECG as follows: Indication: other (pre-op) Rate (beats per minute): 92 Rhythm: atrial fibrillation Findings: no acute ischemic change Change: the following changes noted (T wave inversion V6) Blood Pressure Blood Pressure Findings: Elevated blood pressure Blood Pressure Disposition: further management by hospitalist Head Trauma GCS Score: 15 MDM Narrative This 73-year-old female patient in the emergency department today complaining of left hip pain. There was question of possible head injury, as the patient was uncertain if she may have struck her head. She did have a supratherapeutic INR earlier this week, and has been holding her Coumadin for the past 4 days. Current INR is 1.1. Labs did not show any concerning findings. Initial x-ray o f the left hip was concerning to me for greater trochanter fracture. Radiologist did read this as negative. Because of my concern and the patient's physical examination, we did elect to perform a CT scan. This did show an intertrochanteric left proximal femur fracture. I discussed the case with the medicine team. They did agree to admission. Preop EKG and chest x-ray performed. I did discuss the case with Dr. Angeles who requests that the patient remain n.p.o. and will likely undergo surgical fixation tomorrow morning. The patient and her family verbalized understanding of the treatment plan. Please see hospitalist dictation regarding ongoing management care of this patient. The chart was completed utilizing [employer] voice recognition software. Grammatical errors, random word insertions, pronoun errors, and incomplete sentences are an occasional consequence of this system due to software limitations, ambient noise, and hardware issues. Any formal questions or concer ns about the content, text, or information contained within the body of this dictation should be directly addressed to the provider for clarification. Impression & Plan Hip fracture, left Discharge Plan Visit Data *Final* Discharge Date/Time: 09/18/18 02:50 Chief Complaint: Fall Stated Complaint: FELL, LEFT HIP/LEG PAIN ED Provider: Mau Lazaro ED Midlevel Provider: Hafsa Bond Discharge Problem: Hip fracture, left Patient Disposition: Admitted As Inpatient Discharge Instructions Interventions: ED Discharge Assessment Last Done: 09/18/18 02:50 Discharge Problem: Hip fracture, left Qualifiers: Encounter type: initial encounter Fracture type: closed Qualified Code(s): S72.002A - Fracture of unspecified part of neck of left femur, initial encounter for closed fracture
[2018-09-18 08:22] LABS: Hematocrit (blood only) 31.8 % (37-47); Mean Corpuscular Hgb Conc 31.4 g/dL (32-36); Mean Corpuscular Volume 99.1 fL (80-100); Mean Platelet Volume 8.9 fL (7.4-10.4); Nucleated RBC # (auto) 0.04 K/uL (0-0); Nucleated RBC % (auto) 0.7 %; Platelet Count 160 K/uL (130-400); RDW Coefficient of Variation 18.8 % (11.5-14.5); RDW Standard Deviation 66.4 fL (36.4-46.3); Red Blood Count 3.21 M/uL (4.2-5.4); White Blood Count 5.08 K/uL (4.8-10.8)
[2018-09-18 08:30] LABS: INR 1.1 (0.9-1.1)
[2018-09-18 08:38] LABS: Albumin Level 2.9 gm/dl (3.4-5.0); BUN Creatinine Ratio 5.1 (10-20); Calcium 9.3 mg/dl (8.5-10.1); Creatinine Clr Calc Pharmacy 14.1 ml/min; Est GFR (African American) 14.2; Est GFR (Non-African American) 12.3; Magnesium 1.9 mg/dl (1.8-2.4); Potassium 4.3 mmol/L (3.5-5.1)
[2018-09-18 08:41] LABS: Albumin Globulin Ratio 0.8 (0.9-2); Bilirubin,Total 0.7 mg/dl (0.2-1); Globulin 3.8 gm/dl (2.5-4.0); Phosphorus 1.7 mg/dl (2.5-4.9); Total Protein 6.7 gm/dl (6.4-8.2)
[2018-09-18] MEDS: BUMETANIDE 1 MG TAB PO SCH ×2 (08:52→17:19)
[2018-09-18] MEDS: SACCHAROMYCES BOULARDII 250 MG CAP PO SCH (08:52)
[2018-09-18] MEDS: LABETALOL HCL 200 MG TAB PO SCH ×3 (08:52→21:08)
[2018-09-18] MEDS: CALCIUM ACETATE 667 MG CAP PO SCH (08:53)
[2018-09-18] MEDS: OXcarbazepine 150 MG TABLET PO SCH ×2 (08:53→21:06)
[2018-09-18] MEDS: CETIRIZINE HCL 10 MG TABLET PO SCH (08:53)
[2018-09-18] MEDS: PANTOprazole 40 MG TAB PO SCH (08:53)
[2018-09-18] MEDS ORDERED: CEFAZOLIN 2000MG 2,000 MG/15 ML SYR IV SCH (08:56)
--- NOTE | 2018-09-18 10:53 | Progress Note ---
DATE: 09/18/2018 CHIEF COMPLAINT: Left hip pain. HISTORY OF PRESENT ILLNESS: The patient is a 73-year-old female. She fell yesterday at home injuring her left hip. She was seen and evaluated in the ER and diagnosed with a fracture. She has been admitted to medicine. She denies other injuries. She is a household ambulator with a walker and also uses a wheelchair. She does not get out much. PAST MEDICAL HISTORY: Her past medical history is significant for end-stage renal disease on dialysis, atrial fibrillation on Coumadin, but is currently off, chronic anemia, diabetes, high blood pressure, CHF, cirrhosis. PAST SURGICAL HISTORY: Surgically, she has had an AV fistula, bilateral knee replacements, tubal ligation, multiple ERCPs, cataract surgery, cholecystectomy. Other health problems include spinal stenosis, sleep apnea, gout, GERD, TIA, trigeminal neuralgia, spinal stenosis and recent C. diff infection. ALLERGIES: SHE HAS ALLERGIES TO ANGEL INHIBITORS, DOXYCYCLINE, SIMVASTATIN, METFORMIN, PIOGLITAZONE, ROSIGLITAZONE, STATIN, CIPRO, LEVOFLOXACIN, CATGUT SUTURES. HOME MEDICATIONS: Include bumetanide, calcium acetate, Zyrtec, Hooven, omeprazole, promethazine, labetalol, oxcarbazepine and Coumadin. Her Coumadin has been held. DIAGNOSTIC IMAGING: Radiographs of the hip and CT scan are reviewed. The plain films show what appears to be a greater trochanter fracture. This is confirmed on the CT. There is a suggestion of a very faint cortical irregularity coursing down through the intertrochanteric region to the calcar. There is no femoral neck fracture and there does not appear to be any acetabular or pelvic fracture visualized. LABORATORY DATA: Her white count is 5, hemoglobin 10, hematocrit 32, platelet count is 160. INR is 1.1. PRP is noted. Creatinine 3.4, albumin 2.9. PHYSICAL EXAMINATION: MUSCULOSKELETAL: Her posterior tibial pulse is not palpable nor is her dorsalis pedis pulse. The posterior tibial pulse is dopplerable. She has intact sensation in the leg. She has 5/5 ankle and toe plantar flexion and dorsiflexion strength on the left. She can bend her knee, but complains of left hip pain. Log rolling causes pain in the left hip. The hip area is tender, otherwise negative. There was no significant bruising or swelling. GENERAL: She is awake, alert, and oriented. VITAL SIGNS: She is afebrile and her vital signs are stable. IMPRESSION: Multiple medical problems including atrial fibrillation, diabetes, end-stage renal disease, stroke, C. diff infection. Left hip nondisplaced intertrochanteric fracture. PLAN: Findings are discussed. I think she has definitely a nondisplaced or minimally displaced greater trochanteric fracture. However, I think close examination in the CT scan reveals abnormalities consistent with a nondisplaced fracture coursing down through the intertrochanteric region. If left untreated, I fear that this could displace and cause a more significant help the situation. My recommendation is to go ahead and do a troch nail. I would likely do a long troch nail for her to protect her femur. Her treatment options, risks and benefits are discussed. We will plan on keeping her n.p.o., given her preop antibiotics and taking her to surgery today if possible based on a very backed up or schedule. Informed consent obtained. N.p.o. Mechanical devices for DVT prophylaxis. Hold Coumadin for now. Check vitamin D level.
--- NOTE | 2018-09-18 11:29 | Nephrology Consultation ---
Date of Consultation September 18, 2018 Assessment & Plan (1) ESRD (end stage renal disease) on dialysis: End-stage renal disease on hemodialysis, admitted to the hospital after a mechanical fall. She was found to have left hip intertrochanteric fracture and schedule for surgery this afternoon. Has end-stage renal disease, on dialysis Wednesday, Wednesday, Wednesday, had full dialysis treatment on Wednesday as her regular schedule. Currently blood pressure, electrolyte, volume status acceptable. AV fistula with decent thrill and bruit. --plan for dialysis tomorrow as her regular schedule --avoid IV fluid as much as possible while patient is NPO for surgery, dose medications for GFR less than 10 --Epogen for hemoglobin less than 10 --continue on phosphate binder with meal when patient starts orally after surgery --Nephrocaps daily Will follow Thank you for allowing me to participate in your patient's care. It was a pleasure to see Kalyani The (2) Anemia: (3) Hip fracture, left: (4) HTN (hypertension): History of Present Illness Reason for Consultation: End-stage renal disease on hemodialysis Attending Physician: Tin Maxwell History of Present Illness Kalyani Diaz is a 73-year-old female with end-stage renal disease on hemodialysis admitted to the hospital after a fall at home and left hip fracture. Ne phrologic consult was requested to manage hemodialysis while in hospital. Electronic medical records including labs and imaging so reviewed in detail during patient's visit. Kalyani had a fall at home last night while she was getting out of have bathroom. She did not lose consciousness. Imaging study showed left intertrochanteric hip fracture and she is scheduled for surgery this afternoon. Currently her pain is controlled while immobile. All other workup unremarkable. Has end-stage renal disease, on hemodialysis Wednesday, Wednesday, Wednesday via left brachiocephalic AV fistula. Last dialysis was last Wednesday. Currently blood pressure, electrolyte, volume status acceptable. Allergies Allergy/AdvReac Type Severity Reaction Status Date / Time ANGEL Inhibitors Allergy Mild Cough Verified 09/17/18 22:51 doxycycline Allergy Mild upset Verified 09/17/18 22:51 stomach simvastatin Allergy Mild "did not Verified 09/17/18 22:51 feel well while taking" metformin Allergy Unknown does not Verified 09/17/18 22:51 remember pioglitazone Allergy Unknown ? NOT SURE Verified 09/17/18 22:51 rosiglitazone Allergy Unknown NOT SURE Verified 09/17/18 22:51 [id number]-[id number] Reductase AdvReac Intermediate LEGS HURT Verified 09/17/18 22:51 Inhibitor Cipro AdvReac Mild UPSET Verified 04/06/17 11:43 STOMACH ciprofloxacin AdvReac Mild UPSET Verified 09/17/18 22:51 STOMACH levofloxacin AdvReac Mild ?NAUSEA Verified 09/17/18 22:51 CAT GUT SUTURES Allergy Intermediate SLOW Uncoded 09/17/18 22:51 HEALING,INFLAMED TISSUE Home Medications Home Medications Medication Instructions Recorded Confirmed Type Probiotic 0 mmu cells PO DAILY 07/07/18 09/17/18 History biotin 1 mg PO BID 07/07/18 09/17/18 History bumetanide 2 mg PO BID 07/07/18 09/17/18 History calcium acetate 2 tabs PO QAM 07/07/18 09/17/18 History calcium acetate 3 tab PO UD 07/07/18 09/17/18 History cetirizine [Zyrtec] 10 mg PO DAILY 07/07/18 09/17/18 History cranberry 4,200 mg PO BID 07/07/18 09/17/18 History hydrocodone-acetaminophen [Durant] 1 tab PO TID PRN 07/07/18 09/17/18 History omeprazole 40 mg PO DAILY 07/07/18 09/17/18 History promethazine 25 mg PO Q6 PRN 07/07/18 09/17/18 History labetalol 200 mg PO UD 08/24/18 09/17/18 History oxcarbazepine [Trileptal] 300 mg PO BID 08/24/18 09/17/18 History warfarin [Coumadin] 1 tab PO 3XWK 08/24/18 09/17/18 History warfarin [Coumadin] 10 mg PO 5XWK 08/24/18 09/17/18 History Patient History Medical History Clostridium difficile infection 2016 Spinal stenosis Atrial fibrillation Diabetes (Chronic) HTN (hypertension) (Chronic) Carpal tunnel syndrome (Chronic) Trigeminal neuralgia (Chronic) CHF exacerbation CKD (chronic kidney disease) stage 3, GFR 30-59 ml/min DIALYSIS M// [place] CVA (cerebral vascular accident) (Acute) DENIED TIA (transient ischemic attack) (Acute) DENIED Anemia Cirrhosis of liver ESRD (end stage renal disease) receives HD q M/W/F GERD (gastroesophageal reflux disease) Gout Hyperlipidemia Scoliosis Sleep apnea NO DEVICE Spinal stenosis Surgical History AV fistula L upper extremity H/O knee surgery H/O tubal ligation History of ERCP MULTIPLE History of cataract surgery RT/LEFT History of cholecystectomy History of colonoscopy History of esophagogastroduodenoscopy (EGD) History of total knee replacement RT/LEFT Social History Communication Ability: Effective Beliefs That Will Affect Care: None marital status: Current Living Situation: Spouse current occupational status: retired Other Information That Helps Us Care for You: No Feels Safe at Home: Yes Safety Concerns: Feels Safe At This Time Smoking Status: Never smoker Hx Alcohol Use: No Hx Substance Use: No Review of Systems Detailed review of system was otherwise unremarkable except pertinent positive and negative findings mention above in history of present illness. Physical Exam Vital Signs (Past 24 Hours): Last Vital Signs Temp 36.8 C 09/18/18 07:14 Pulse 69 09/18/18 07:14 Resp 18 09/18/18 07:14 BP 154/86 H 09/18/18 07:14 Pulse Ox 95 09/18/18 07:14 Physical Exam: GENERAL: AAA x 3, pleasant, healthy-appearing, not in any distress. HEENT: Atraumatic, normocephalic. NECK: Supple, no JVD, no carotid bruit appreciated. ENT: No sinus tenderness MOUTH and THROAT: Moist oral mucosa, RESPIRATORY: Normal breathing efforts, clear to auscultation bilaterally, no wheezes or rales. CARDIOVASCULAR: S1, S2 normal, rate rhythm regular. ABDOMEN: Soft, nontender, positive bowel sound. MUSCULOSKELETAL: Left lower extremity pain with movement SKIN: No skin rash EXTREMITY: No lower extremity edema, left lower extremity kept immobile NEURO: No gross focal neurological deficit, speech fluent. PSYCHIATRY: Normal mood and judgment (1) Anemia Anemia type: other cause Other causes of anemia: chronic disease, other Qualified Code(s): D63.8 - Anemia in other chronic diseases classified elsewhere (2) Hip fracture, left Encounter type: initial encounter Fracture type: closed Qualified Code(s): S72.002A - Fracture of unspecified part of neck of left femur, initial encounter for closed fracture (3) HTN (hypertension) Hypertension type: essential hypertension Qualified Code(s): I10 - Essential (primary) hypertension
[2018-09-18] MEDS ORDERED: fentaNYL citrate 100 MCG/2 ML VIAL ONE ×2 (11:31→12:48)
--- NOTE | 2018-09-18 11:37 | Anesthesiology Consultation ---
Date of Service September 18, 2018 Assessment & Plan Chart Review Chart Review: Acceptable Risk for Surgery and Patient NOT seen in Pre Admission Testing Consults Requested none NPO Date Last Intake of Fluids: 09/17/18 Time Last Intake of Fluids: 16:45 Last Intake of Fluids Comment: NPO EXCEPT MEDICATIONS, SIPS, AND CHIPS Date Last Intake of Solids: 09/17/18 Time Last Intake of Solids: 16:45 History Surgery Operation Date: 09/18/18 13:00 Proposed Procedures p Intramedullary Enhemias Femur - Neo Angeles MD Height/Weight Height: 5 ft Weight: 91 kg Allergies Allergy/AdvReac Type Severity Reaction Status Date / Time ANGEL Inhibitors Allergy Mild Cough Verified 09/17/18 22:51 doxycycline Allergy Mild upset Verified 09/17/18 22:51 stomach simvastatin Allergy Mild "did not Verified 09/17/18 22:51 feel well while taking" metformin Allergy Unknown does not Verified 09/17/18 22:51 remember pioglitazone Allergy Unknown ? NOT SURE Verified 09/17/18 22:51 rosiglitazone Allergy Unknown NOT SURE Verified 09/17/18 22:51 Iftuetn-Vqx-Riv Reductase AdvReac Intermediate LEGS HURT Verified 09/17/18 22:51 Inhibitor Cipro AdvReac Mild UPSET Verified 04/06/17 11:43 STOMACH ciprofloxacin AdvReac Mild UPSET Verified 09/17/18 22:51 STOMACH levofloxacin AdvReac Mild ?NAUSEA Verified 09/17/18 22:51 CAT GUT SUTURES Allergy Intermediate SLOW Uncoded 09/17/18 22:51 HEALING,INFLAMED TISSUE Medications Home Medications Medication Instructions Recorded Confirmed Last Taken Probiotic 0 mmu cells PO DAILY 07/07/18 09/17/18 09/17/18 biotin 1 mg PO BID 07/07/18 09/17/18 09/17/18 bumetanide 2 mg PO BID 07/07/18 09/17/18 09/17/18 calcium acetate 2 tabs PO QAM 07/07/18 09/17/18 09/17/18 calcium acetate 3 tab PO UD 07/07/18 09/17/18 09/16/18 cetirizine [Zyrtec] 10 mg PO DAILY 07/07/18 09/17/18 09/17/18 cranberry 4,200 mg PO BID 07/07/18 09/17/18 09/17/18 hydrocodone-acetaminophen [[place]] 1 tab PO TID PRN 07/07/18 09/17/18 09/17/18 omeprazole 40 mg PO DAILY 07/07/18 09/17/18 09/17/18 promethazine 25 mg PO Q6 PRN 07/07/18 09/17/18 09/17/18 labetalol 200 mg PO UD 08/24/18 09/17/18 09/17/18 oxcarbazepine [Trileptal] 300 mg PO BID 08/24/18 09/17/18 09/17/18 warfarin [Coumadin] 1 tab PO 3XWK 08/24/18 09/17/18 09/16/18 warfarin [Coumadin] 10 mg PO 5XWK 08/24/18 09/17/18 09/17/18 Active Medications Generic Name Dose Route Start Last Admin Trade Name Freq PRN Reason Stop Dose Admin Bumetanide 2 mg 09/18/18 09:00 09/18/18 08:52 Bumex PO 10/18/18 08:59 Not Given BID17 [facility] Calcium Acetate 1,334 mg 09/18/18 09:00 09/18/18 08:53 Phoslo PO 10/18/18 08:59 Not Given QAM [facility] Cetirizine HCl 10 mg 09/18/18 09:00 09/18/18 08:53 Zyrtec PO 10/18/18 08:59 Not Given DAILY [facility] Hydromorphone HCl 0.25 mg 09/18/18 03:40 09/18/18 09:01 Dilaudid IV 10/02/18 03:39 0.25 mg Q4H PRN Administration Pain Insulin Aspart 0 units 09/18/18 06:00 09/18/18 05:53 Novolog Flexpen SC 10/18/18 05:59 Not Given Q6 [facility] Labetalol HCl 200 mg 09/18/18 09:00 09/18/18 08:52 Normodyne PO 10/18/18 08:59 Not Given [id number] [facility] Oxcarbazepine 300 mg 09/18/18 09:00 09/18/18 08:53 Trileptal PO 10/18/18 08:59 Not Given BID [facility] Pantoprazole Sodium 40 mg 09/18/18 09:00 09/18/18 08:53 Protonix PO 10/18/18 08:59 Not Given DAILY GLENIS Saccharomyces Boulardii 250 mg 09/18/18 09:00 09/18/18 08:52 Florastor PO 10/18/18 08:59 Not Given DAILY GLENIS Past Medical History Medical History Clostridium difficile infection 2016 Spinal stenosis Atrial fibrillation Diabetes (Chronic) HTN (hypertension) (Chronic) Carpal tunnel syndrome (Chronic) Trigeminal neuralgia (Chronic) CHF exacerbation CKD (chronic kidney disease) stage 3, GFR 30-59 ml/min DIALYSIS M/W/F [place] CVA (cerebral vascular accident) (Acute) DENIED TIA (transient ischemic attack) (Acute) DENIED Anemia Cirrhosis of liver ESRD (end stage renal disease) receives HD q M/W/F GERD (gastroesophageal reflux disease) Gout Hyperlipidemia Scoliosis Sleep apnea NO DEVICE Spinal stenosis Past Family History Family History Other Family history non-contributory Past Surgical History Surgical History AV fistula L upper extremity H/O knee surgery H/O tubal ligation History of ERCP MULTIPLE History of cataract surgery RT/LEFT History of cholecystectomy History of colonoscopy History of esophagogastroduodenoscopy (EGD) History of total knee replacement RT/LEFT Social History Smoking Status: Never smoker Hx Alcohol Use: No Hx Substance Use: No Physical Exam Vital Signs Last Vital Signs Temp 36.8 C 09/18/18 07:14 Pulse 69 09/18/18 07:14 Resp 18 09/18/18 07:14 BP 154/86 H 09/18/18 07:14 Pulse Ox 95 09/18/18 07:14 Testing Laboratory Results 09/18/18 08:00 09/18/18 08:00 Blood Type O Positive 09/17/18 22:16 Antibody Screen NEGATIVE 09/17/18 22:16 PT 11.0 Seconds (9.0-12.0) 09/18/18 08:00 INR 1.1 (0.9-1.1) 09/18/18 08:00 APTT 27.5 Seconds (21.0-31.0) 09/17/18 22:16 Urine Color Dark Yellow 09/17/18 22:34 Urine Appearance Clear (Clear) 09/17/18 22:34 Urine pH 8.5 (4.5-7.5) H 09/17/18 22:34 Ur Specific Mozelle 1.014 (1.000-1.030) 09/17/18 22:34 Urine Protein Negative (Negative) 09/17/18 22:34 Urine Glucose (UA) Negative (Negative) 09/17/18 22:34 Urine Ketones Negative (Negative) 09/17/18 22:34 Urine Nitrite Negative (Negative) 09/17/18 22:34 Ur Leukocyte Esterase Trace (Negative) H 09/17/18 22:34 Urine WBC (Auto) 10-30 /hpf (0-5) H 09/17/18 22:34 Urine RBC (Auto) 0-4 /hpf (0-4) 09/17/18 22:34 U Hyaline Cast (Auto) 1-5 /lpf (0-5) 09/17/18 22:34 U Epithel Cells (Auto) 5-10 /lpf (0-5) H 09/17/18 22:34 Urine Bacteria (Auto) Negative (Negative) 09/17/18 22:34 09/18/18 05:37 POC Glucose 112 H
[2018-09-18] MEDS ORDERED: ePHEDrine sulfate 50 MG/ML AMP IV PRN (11:57)
[2018-09-18] MEDS ORDERED: HYDROmorphone INJ 1 MG/ML SYRINGE IV PRN (11:57)
[2018-09-18] MEDS ORDERED: ATROPINE SULFATE 0.1 MG/ML 10ML SYR IV PRN (11:57)
[2018-09-18] MEDS ORDERED: BUPIVACAINE/EPINEPHRINE 0.5% MPF 1:200,000 30 ML VIAL ONE (12:25)
[2018-09-18] MEDS ORDERED: LIDOCAINE/EPINEPHRINE 1% 20 ML VIAL ONE (12:25)
[2018-09-18] MEDS ORDERED: ONDANSETRON INJ 2 MG/ML 2 ML VIAL ONE ×2 (12:38→14:18)
[2018-09-18] MEDS ORDERED: LIDOCAINE HCL 2% 2 ML VIAL/AMP(20MG/ML) INFIL ONE (12:38)
[2018-09-18] MEDS ORDERED: PROPOFOL IV EMULSION 10 MG/ML 20 ML VIAL IV ONE (12:38)
[2018-09-18] MEDS ORDERED: DEXAMETHASONE SOD INJ 4 MG/ML VIAL ONE (12:38)
[2018-09-18] MEDS ORDERED: SUCCINYLCHOLINE 100MG/5ML SYR ONE (12:38)
[2018-09-18] MEDS ORDERED: POVIDONE-IODINE OP SOLN 30 ML BTL ONE (13:54)
--- NOTE | 2018-09-18 14:09 | Post Operative Brief Note ---
Immediate Post Op Note v1 Date of Surgery September 18, 2018 Pre & Post Diagnosis Operation Date: 09/18/18 13:00 Pre-Op Diagnosis: Intertrochanteric Fracture of the Left Femur Post-Op Diagnosis: Intertrochanteric Fracture of the Left Femur Procedure Operation Date: 09/18/18 13:00 Actual Procedures p Intramedullary Nehemias Left Femur(Left) - Neo Angeles MD Surgeon Neo Angeles MD [employer] ciaran seth Estimated Blood Loss 50 Findings Consistent with Post-Op Diagnosis Anesthesia Type General Complications none Disposition Accompanied Patient To Recovery: No Disposition: Recovery Room
--- NOTE | 2018-09-18 14:09 | Fluoroscopy Report ---
FL femur LT 2V CLINICAL HISTORY: LEFT TROCHNAIL COMPARISON STUDY: CT left hip 09/17/2018 FLUOROSCOPY TIME: 1 minute 48 seconds NUMBER OF FLUOROSCOPIC IMAGES: 4 FINDINGS: Image intensifier utilized for a left hip and femur nailing procedure. Alignment is anatomi c. IMPRESSION: Image intensifier utilized for a left hip and femur nailing procedure. Alignment is anato fahad. The above report was generated using voice recognition software. It may contain grammatical, syntax or spelling errors. Electronically signed by: Jose Blake M.D. 09/18/2018 2:07 PM
--- NOTE | 2018-09-18 14:35 | Operative Report ---
Post Operative Report Pre & Post Diagnosis Operation Date: 09/18/18 13:00 Pre-Op Diagnosis: Intertrochanteric Fracture of the Left Femur Post-Op Diagnosis: Intertrochanteric Fracture of the Left Femur Procedure Operation Date: 09/18/18 13:00 Actual Procedures p Intramedullary Nehemias Left Femur(Left) - Neo Angeles MD Surgeon Neo Angeles MD Reproduction Machine Loader ciaran seth Estimated Blood Loss 50 Findings Consistent with Post-Op Diagnosis Specimens none Complications none Disposition Accompanied Patient To Recovery: Yes Disposition: Recovery Room Description of Procedure I was present during the entire case assisting with wound closure and dressing application. Please see Dr. Angeles procedure note for specifics. I attest to the content of the Intraoperative Record and any orders documented therein. Any exceptions are noted below.
--- NOTE | 2018-09-18 14:39 | Operative Report ---
Post Operative Report Pre & Post Diagnosis Operation Date: 09/18/18 13:00 Pre-Op Diagnosis: Intertrochanteric Fracture of the Left Femur Post-Op Diagnosis: Intertrochanteric Fracture of the Left Femur Procedure Operation Date: 09/18/18 13:00 Actual Procedures p Intramedullary Nehemias Left Femur(Left) - Neo Angeles MD Surgeon Neo Angeles MD Mobile Home Technician ciaran seth Estimated Blood Loss 50 Findings Consistent with Post-Op Diagnosis Specimens None Anesthesia Type General Complications none Disposition Accompanied Patient To Recovery: No Disposition: Recovery Room Indications Patient 73-year-old female status post fall. She has a nondisplaced intertrochanteric fracture by CT scan. Multiple medical problems. On kidney dialysis. Seen and evaluated and admitted by medicine. On chronic Coumadin but has been off for the past few days and has a normal INR Description of Procedure Informed consent obtained. Patient identified. She identified the operative site as the left hip. I marked with my initials. Preop surgical timeout performed and a preop dose of IV antibiotics given. She was positioned supine on the OR fracture table. The left arm was folded over the torso which was secured to the table with several straps of 3 inch wide tape. The right leg was placed into physiologic abduction external rotation and hip flexion. A padded leg suarez was utilized. Along with a well-padded perineal post. The left leg was placed into gentle longitudinal traction. She had a mild hip flexion contracture and also increased physiologic external rotation which necessitated some flexion of the leg and internal rotation of the leg. DVT prophylaxis with foot pumps on the nonoperative leg and postoperatively we will restart her Coumadin do early mobility. Mechanical devices. Bony prominences were inspected and padded. Fluoroscopic guidance was utilized throughout the procedure along with the C armor drape and shower curtain. Fluoroscopic guidance was utilized to identify the tip of the greater trochanter and then a 5 cm incision just proximal to this and in line with the shaft of the femur was made. Electrocautery was utilized down to the subcutaneous tissues to the gluteal fascia which was divided in line with the incision. Hemostasis with electrocautery. The tip of the greater trochanter was identified and a guide pin was inserted and adjusted x1 for proper location. This was confirmed in multiplanar fluoroscopy followed by the use of the large 17 mm reamer and intramedullary guide nehemias and a 12 mm reamer. All guide rods were confirmed with multiplanar fluoroscopy. She has a total knee in. Nehemias length was determined to be 340 mm and this was inserted using gentle hand power. Finished with blows from the mallet. Rotation was set and a guide pin was drilled into place and adjusted x1 to be in the center center position just below the subchondral bone of the femoral head. This was done through an accessory lateral incision. Reaming for the tri-flange bolt was performed followed by insertion and locking of the set screw. The proximal apparatus was removed. A distal interlocking screw was inserted in the dynamic mode using the perfect [place] percutaneous technique. Financial Coach images of the upper and lower ends of the fixation were obtained. Irrigation was performed with Betadine saline and regular sterile saline. Local anesthetic 1% lidocaine and 0.5% Marcaine with epinephrine were injected into the skin and subcutaneous tissues. The upper incision was closed with #1 for the gluteal fascia and 0 for the subcutaneous space. The patient did have a large fat layer. 2 oh was used on the skin. The inferior incision closed with 2-0 Vicryl all incisions were closed with noa. A 2 layered closure with 0 and 2-0 Vicryl was done for the middle incision. She was then taken off of the fracture table returned back to the hospital bed in stable condition. There were no specimens or complications. Counts were correct. Blood loss was 50 cc. At the conclusion operation there was no unavailable to speak to. She can weight-bear as tolerated I will received postop antibiotics she can resume her dialysis and will be started back on her Coumadin tonight. I attest to the content of the Intraoperative Record and any orders documented therein. Any exceptions are noted below.
[2018-09-18] MEDS ORDERED: ONDANSETRON INJ 2 MG/ML 2 ML VIAL IV PRN (14:48)
[2018-09-18] MEDS ORDERED: MoRPHine SULFATE 2 MG/ML CARP IV PRN (14:48)
[2018-09-18] MEDS ORDERED: HYDROCODONE/ACETAMINOPHEN 10/325 TAB PO PRN (14:48)
--- NOTE | 2018-09-18 14:58 | Anesthesiology Progress Note ---
Date of Service September 18, 2018 Anesthesia Post Procedure Vital Signs Vital Signs: Temp Pulse Pulse Resp BP BP Pulse Ox 09/18/18 14:50 68 16 127/54 L 95 09/18/18 14:40 36.4 C L 68 16 117/53 L 95 09/18/18 11:45 37.1 C 77 16 146/113 H 92 09/18/18 07:14 36.8 C 69 18 154/86 H 95 09/18/18 03:15 37.4 C 88 16 146/74 H 96 09/18/18 02:15 0 L 19 92 09/18/18 02:01 83 23 145/69 H 09/18/18 02:00 89 25 H 09/18/18 01:45 100 H 27 H 93 09/18/18 01:30 91 H 21 153/78 H 96 09/18/18 01:15 91 H 20 99 09/18/18 01:00 91 H 23 142/89 H 97 09/18/18 00:45 87 16 96 09/18/18 00:31 92 H 22 149/87 H 93 09/18/18 00:30 81 23 09/18/18 00:15 83 23 94 09/18/18 00:00 86 21 142/63 H 93 09/17/18 23:45 97 H 21 92 09/17/18 23:30 94 H 23 155/89 H 90 09/17/18 23:28 133 H 12 09/17/18 23:00 87 17 167/74 H 90 09/17/18 22:45 83 18 90 09/17/18 22:41 87 20 149/93 H 91 09/17/18 22:28 65 16 92 09/17/18 19:44 37 C 79 20 164/74 H 92 Pain Intensity Left Thoracic: Pain Intensity: 7 Left Hip: Pain Intensity: 3 Notes Mental Status: alert / awake / arousable Patient Amnestic to Procedure: Yes Nausea / Vomiting: adequately controlled Pain: adequately controlled Airway Patency, RR, SpO2: stable & adequate BP & HR: stable & adequate Hydration State: stable & adequate Anesthetic Complications: no major complications apparent and Pt Satisfied with anesthetic care
--- NOTE | 2018-09-18 15:05 | Hospitalist Progress Note ---
Date of Service September 18, 2018 Assessment & Plan (1) Hip fracture, left: - Presented with intertrochanteric fracture of left femur following mechanical fall at home. - Orthopedics consulted, status post intramedullary dhaval of the left femur today. - Dilaudid and Oxycodone prn pain (avoid Morphine in setting of ESRD). - DVT ppx: will continue home Warfarin. - PT/OT ordered. (2) ESRD (end stage renal disease) on dialysis: - Nephrology following, appreciate input. - Continue HD qMWF. - Continue Bumex 2 mg PO BID, PhosLo and Nephrocaps. - Avoid IV fluids if possible during operative period. - Renally dose all meds for GFR <10. - Monitor renal function, electrolytes daily; monitor daily weights and I/Os. (3) Atrial fibrillation: - On Coumadin at home -- was instructed to hold med earlier this week due to supratherapeutic INR. - Continue labetalol as prescribed. - INR was subtherapeutic today at 1.1 -- will resume 10 mg qMWF, 7.5 mg every other day. (4) Anemia: - Chronic anemia, is currently at baseline. - Will need Epogen for hemoglobin level <10 per nephrology. - Monitor CBC qAM. (5) Clostridium difficile infection: - Diagnosed with C. diff during recent hospitalization. - Completed course of PO abx. - Minimize abx exposure; Florastor daily. (6) Diabetes: - Most recent A1C was 6 in Mar 2018. - CCD as tolerated. - Monitor gluc checks ac/hs with SSI coverage. (7) HTN (hypertension): - Continue Labetalol and Bumex as prescribed. (8) Trigeminal neuralgia: - Continue Trileptal as prescribed. (9) Cirrhosis: - CT Abdomen performed during her last hospital admission revealed a slightly nodular contour of the liver. Density consistent with mild hepatic steatosis. - LFTs are within normal limits. - Will need outpatient work up. (10) DVT prophylaxis: - Resume Warfarin per orthopedic recs. Dispo: Med/surg s/p OR. PT/OT ordered. Supervising Physician Co-Signing Physician Notes Attending Attestation - Chart reviewed in detail, care plan d/w BSAIL Friedman. I agree w/ the smith components of her documentation. s/p left hip ORIF today by orthopedics. Will need HD tomorrow due to ESRD status. Other chronic issues stable. Tin Maxwell MD Subjective Pt. is doing well overall. Has chronic back pain. Complains of pain in left hip with movement. Denies SOB, chest pain. Last BM was prior to her fall at home yesterday. Has rosales in place, will need to remove over next 24 hours. Review of Systems All systems reviewed & are unremarkable except as noted in HPI & below Constitutional: no fever, no chills, no fatigue, no weakness and no anorexia Respiratory: no cough and no dyspnea Cardiovascular: no chest pain, no palpitations and no edema Gastrointestinal: no abdominal pain, no nausea and no constipation Genitourinary (Female): no difficulty urinating Musculoskeletal: + back pain (chronic ); no joint pain Integumentary: no non-healing lesions Allergy / Immunological: no rash Physical Exam Vital Signs (Past 24 Hours): Last Vital Signs Temp 36.4 C L 09/18/18 14:40 Pulse 68 09/18/18 14:50 Resp 16 09/18/18 14:50 BP 127/54 L 09/18/18 14:50 Pulse Ox 95 09/18/18 14:50 Physical Exam: General: Resting comfortably in no apparent distress; A&OX3 HEENT: NC/AT; PERRLA with EOMI; [place] conjunctiva, MMM. Neck: Supple and nontender Cardiac: Irregular Lungs: CTA bilaterally; No rhonchi, wheezing, or rales Abdomen: Bowel normoactive X 4; Nontender to palpation Extremities: Warm. No edema present Neuro: No focal weakness Skin: No rash Results & Data Laboratory Results 09/18/18 09/18/18 09/18/18 Range/Units 08:00 08:00 08:00 WBC 5.08 (4.8-10.8) K/uL RBC 3.21 L (4.2-5.4) M/uL Hgb 10.0 L (12.0-16.0) g/dL Hct 31.8 L (37-47) % MCV 99.1 (80-100) fL MCH 31.2 (25-34) pg MCHC 31.4 L (32-36) g/dL RDW Std Deviation 66.4 H (36.4-46.3) fL RDW Coeff of Alejandra 18.8 H (11.5-14.5) % Plt Count 160 (130-400) K/uL MPV 8.9 (7.4-10.4) fL Immature Gran % (Auto) % Neut % (Auto) % Lymph % (Auto) % [place] % (Auto) % Eos % (Auto) % Baso % (Auto) % Immature Gran # (Auto) (0.00-0.02) K/uL Neut # (Auto) (1.4-6.5) K/uL Lymph # (Auto) (1.2-3.4) K/uL [place] # (Auto) (0.11-0.59) K/uL Eos # (Auto) (0-0.5) K/uL Baso # (Auto) (0-0.2) K/uL Absolute Nucleated RBC 0.04 H (0-0) K/uL Nucleated RBC % (auto) 0.7 % PT 11.0 (9.0-12.0) Seconds INR 1.1 (0.9-1.1) APTT (21.0-31.0) Seconds PTT Ratio Sodium 136 (136-145) mmol/L Potassium 4.3 (3.5-5.1) mmol/L Chloride 101 (98-107) mmol/L Carbon Dioxide 30 (21-32) mmol/L Anion Gap 6.0 (3-11) BUN 18 (7-18) mg/dl Creatinine 3.46 H (0.6-1.2) mg/dl Est Cr Clr Drug Dosing 14.1 ml/min Est GFR ( Amer) 14.2 Est GFR (Non-Af Amer) 12.3 BUN/Creatinine Ratio 5.1 L (10-20) Glucose 124 H (70-99) mg/dl POC Glucose (70-99) Calcium 9.3 (8.5-10.1) mg/dl Phosphorus 1.7 L (2.5-4.9) mg/dl Magnesium 1.9 (1.8-2.4) mg/dl Total Bilirubin 0.7 (0.2-1) mg/dl AST 19 (15-37) U/L ALT 17 (12-78) U/L Alkaline Phosphatase 90 (45-117) U/L Total Protein 6.7 (6.4-8.2) gm/dl Albumin 2.9 L (3.4-5.0) gm/dl Globulin 3.8 (2.5-4.0) gm/dl Albumin/Globulin Ratio 0.8 L (0.9-2) Urine Color Urine Appearance (Clear) Urine pH (4.5-7.5) Ur Specific [place] (1.000-1.030) Urine Protein (Negative) Urine Glucose (UA) (Negative) Urine Ketones (Negative) Urine Blood (Negative) Urine Nitrite (Negative) Urine Bilirubin (Negative) Urine Urobilinogen (Negative) Ur Leukocyte Esterase (Negative) Urine WBC (Auto) (0-5) /hpf Urine RBC (Auto) (0-4) /hpf U Hyaline Cast (Auto) (0-5) /lpf U Epithel Cells (Auto) (0-5) /lpf Urine Bacteria (Auto) (Negative) Nasal Screen MRSA (PCR) (Negative) Blood Type Antibody Screen 09/18/18 09/18/18 09/17/18 Range/Units 05:37 03:55 22:34 WBC (4.8-10.8) K/uL RBC (4.2-5.4) M/uL Hgb (12.0-16.0) g/dL Hct (37-47) % MCV (80-100) fL MCH (25-34) pg MCHC (32-36) g/dL RDW Std Deviation (36.4-46.3) fL RDW Coeff of Alejandra (11.5-14.5) % Plt Count (130-400) K/uL MPV (7.4-10.4) fL Immature Gran % (Auto) % Neut % (Auto) % Lymph % (Auto) % [place] % (Auto) % Eos % (Auto) % Baso % (Auto) % Immature Gran # (Auto) (0.00-0.02) K/uL Neut # (Auto) (1.4-6.5) K/uL Lymph # (Auto) (1.2-3.4) K/uL [place] # (Auto) (0.11-0.59) K/uL Eos # (Auto) (0-0.5) K/uL Baso # (Auto) (0-0.2) K/uL Absolute Nucleated RBC (0-0) K/uL Nucleated RBC % (auto) % PT (9.0-12.0) Seconds INR (0.9-1.1) APTT (21.0-31.0) Seconds PTT Ratio Sodium (136-145) mmol/L Potassium (3.5-5.1) mmol/L Chloride (98-107) mmol/L Carbon Dioxide (21-32) mmol/L Anion Gap (3-11) BUN (7-18) mg/dl Creatinine (0.6-1.2) mg/dl Est Cr Clr Drug Dosing ml/min Est GFR ( Amer) Est GFR (Non-Af Amer) BUN/Creatinine Ratio (10-20) Glucose (70-99) mg/dl POC Glucose 112 H (70-99) Calcium (8.5-10.1) mg/dl Phosphorus (2.5-4.9) mg/dl Magnesium (1.8-2.4) mg/dl Total Bilirubin (0.2-1) mg/dl AST (15-37) U/L ALT (12-78) U/L Alkaline Phosphatase (45-117) U/L Total Protein (6.4-8.2) gm/dl Albumin (3.4-5.0) gm/dl Globulin (2.5-4.0) gm/dl Albumin/Globulin Ratio (0.9-2) Urine Color Dark Yellow Urine Appearance Clear (Clear) Urine pH 8.5 H (4.5-7.5) Ur Specific [place] 1.014 (1.000-1.030) Urine Protein Negative (Negative) Urine Glucose (UA) Negative (Negative) Urine Ketones Negative (Negative) Urine Blood Negative (Negative) Urine Nitrite Negative (Negative) Urine Bilirubin Negative (Negative) Urine Urobilinogen Negative (Negative) Ur Leukocyte Esterase Trace H (Negative) Urine WBC (Auto) 10-30 H (0-5) /hpf Urine RBC (Auto) 0-4 (0-4) /hpf U Hyaline Cast (Auto) 1-5 (0-5) /lpf U Epithel Cells (Auto) 5-10 H (0-5) /lpf Urine Bacteria (Auto) Negative (Negative) Nasal Screen MRSA (PCR) Negative (Negative) Blood Type Antibody Screen 09/17/18 09/17/18 09/17/18 Range/Units 22:16 22:16 22:16 WBC (4.8-10.8) K/uL RBC (4.2-5.4) M/uL Hgb (12.0-16.0) g/dL Hct (37-47) % MCV (80-100) fL MCH (25-34) pg MCHC (32-36) g/dL RDW Std Deviation (36.4-46.3) fL RDW Coeff of Alejandra (11.5-14.5) % Plt Count (130-400) K/uL MPV (7.4-10.4) fL Immature Gran % (Auto) % Neut % (Auto) % Lymph % (Auto) % [place] % (Auto) % Eos % (Auto) % Baso % (Auto) % Immature Gran # (Auto) (0.00-0.02) K/uL Neut # (Auto) (1.4-6.5) K/uL Lymph # (Auto) (1.2-3.4) K/uL [place] # (Auto) (0.11-0.59) K/uL Eos # (Auto) (0-0.5) K/uL Baso # (Auto) (0-0.2) K/uL Absolute Nucleated RBC (0-0) K/uL Nucleated RBC % (auto) % PT 10.9 (9.0-12.0) Seconds INR 1.1 (0.9-1.1) APTT 27.5 (21.0-31.0) Seconds PTT Ratio 1.0 Sodium 136 (136-145) mmol/L Potassium 4.1 (3.5-5.1) mmol/L Chloride 100 (98-107) mmol/L Carbon Dioxide 30 (21-32) mmol/L Anion Gap 6.0 (3-11) BUN 15 (7-18) mg/dl Creatinine 3.37 H (0.6-1.2) mg/dl Est Cr Clr Drug Dosing 14.5 ml/min Est GFR ( Amer) 14.7 Est GFR (Non-Af Amer) 12.7 BUN/Creatinine Ratio 4.4 L (10-20) Glucose 139 H (70-99) mg/dl POC Glucose (70-99) Calcium 9.7 (8.5-10.1) mg/dl Phosphorus 1.6 L (2.5-4.9) mg/dl Magnesium 1.8 (1.8-2.4) mg/dl Total Bilirubin (0.2-1) mg/dl AST (15-37) U/L ALT (12-78) U/L Alkaline Phosphatase (45-117) U/L Total Protein (6.4-8.2) gm/dl Albumin (3.4-5.0) gm/dl Globulin (2.5-4.0) gm/dl Albumin/Globulin Ratio (0.9-2) Urine Color Urine Appearance (Clear) Urine pH (4.5-7.5) Ur Specific [place] (1.000-1.030) Urine Protein (Negative) Urine Glucose (UA) (Negative) Urine Ketones (Negative) Urine Blood (Negative) Urine Nitrite (Negative) Urine Bilirubin (Negative) Urine Urobilinogen (Negative) Ur Leukocyte Esterase (Negative) Urine WBC (Auto) (0-5) /hpf Urine RBC (Auto) (0-4) /hpf U Hyaline Cast (Auto) (0-5) /lpf U Epithel Cells (Auto) (0-5) /lpf Urine Bacteria (Auto) (Negative) Nasal Screen MRSA (PCR) (Negative) Blood Type O Positive Antibody Screen NEGATIVE 09/17/18 Range/Units 22:16 WBC 7.36 (4.8-10.8) K/uL RBC 3.39 L (4.2-5.4) M/uL Hgb 10.6 L (12.0-16.0) g/dL Hct 33.7 L (37-47) % MCV 99.4 (80-100) fL MCH 31.3 (25-34) pg MCHC 31.5 L (32-36) g/dL RDW Std Deviation 66.5 H (36.4-46.3) fL RDW Coeff of Alejandra 18.6 H (11.5-14.5) % Plt Count 177 (130-400) K/uL MPV 9.3 (7.4-10.4) fL Immature Gran % (Auto) 0.4 % Neut % (Auto) 79.3 % Lymph % (Auto) 12.8 % [place] % (Auto) 6.4 % Eos % (Auto) 0.8 % Baso % (Auto) 0.3 % Immature Gran # (Auto) 0.03 H (0.00-0.02) K/uL Neut # (Auto) 5.84 (1.4-6.5) K/uL Lymph # (Auto) 0.94 L (1.2-3.4) K/uL [place] # (Auto) 0.47 (0.11-0.59) K/uL Eos # (Auto) 0.06 (0-0.5) K/uL Baso # (Auto) 0.02 (0-0.2) K/uL Absolute Nucleated RBC (0-0) K/uL Nucleated RBC % (auto) % PT (9.0-12.0) Seconds INR (0.9-1.1) APTT (21.0-31.0) Seconds PTT Ratio Sodium (136-145) mmol/L Potassium (3.5-5.1) mmol/L Chloride (98-107) mmol/L Carbon Dioxide (21-32) mmol/L Anion Gap (3-11) BUN (7-18) mg/dl Creatinine (0.6-1.2) mg/dl Est Cr Clr Drug Dosing ml/min Est GFR ( Amer) Est GFR (Non-Af Amer) BUN/Creatinine Ratio (10-20) Glucose (70-99) mg/dl POC Glucose (70-99) Calcium (8.5-10.1) mg/dl Phosphorus (2.5-4.9) mg/dl Magnesium (1.8-2.4) mg/dl Total Bilirubin (0.2-1) mg/dl AST (15-37) U/L ALT (12-78) U/L Alkaline Phosphatase (45-117) U/L Total Protein (6.4-8.2) gm/dl Albumin (3.4-5.0) gm/dl Globulin (2.5-4.0) gm/dl Albumin/Globulin Ratio (0.9-2) Urine Color Urine Appearance (Clear) Urine pH (4.5-7.5) Ur Specific [place] (1.000-1.030) Urine Protein (Negative) Urine Glucose (UA) (Negative) Urine Ketones (Negative) Urine Blood (Negative) Urine Nitrite (Negative) Urine Bilirubin (Negative) Urine Urobilinogen (Negative) Ur Leukocyte Esterase (Negative) Urine WBC (Auto) (0-5) /hpf Urine RBC (Auto) (0-4) /hpf U Hyaline Cast (Auto) (0-5) /lpf U Epithel Cells (Auto) (0-5) /lpf Urine Bacteria (Auto) (Negative) Nasal Screen MRSA (PCR) (Negative) Blood Type Antibody Screen (1) Diabetes Diabetes mellitus complication status: without complication Diabetes mellitus fdc insulin use: without fdc use Diabetes mellitus type: type 2 Qualified Code(s): E11.9 - Type 2 diabetes mellitus without complications (2) Anemia Anemia type: other cause Other causes of anemia: chronic disease, other Qualified Code(s): D63.8 - Anemia in other chronic diseases classified elsewhere (3) Atrial fibrillation Atrial fibrillation type: permanent Qualified Code(s): I48.2 - Chronic atrial fibrillation (4) Hip fracture, left Encounter type: initial encounter Fracture type: closed Qualified Code(s): S72.002A - Fracture of unspecified part of neck of left femur, initial encounter for closed fracture (5) HTN (hypertension) Hypertension type: essential hypertension Qualified Code(s): I10 - Essential (primary) hypertension
--- NOTE | 2018-09-18 15:17 | XRay Report ---
XR hip LT min 2V CLINICAL HISTORY: Post-Operative implant position COMPARISON: 09/17/2018 DISCUSSION: Anatomic alignment post left hip and femoral shaft pain/narrowing. Alignment is anatomic. Expected soft tissue postoperative change IMPRESSION: Anatomic alignment post open reduction internal fixation The above report was generated using voice recognition software. It may contain grammatical, syntax or spelling errors. Electronically signed by: Jose Blake M.D. 09/18/2018 3:15 PM
[2018-09-18] MEDS ORDERED: PROMETHAZINE HCL 6.25 MG in SODIUM CHLORIDE 0.9% 50 ML IV STA (15:24)
[2018-09-18] MEDS ORDERED: HYDROmorphone INJ 1 MG/ML SYRINGE ONE (15:28)
[2018-09-18] MEDS ORDERED: SODIUM CHLORIDE 0.9% 1000ML 1,000 ML IV SCH (15:30)
[2018-09-18] MEDS ORDERED: WARFARIN SOD 10 MG TAB PO SCH (16:00)
[2018-09-18] MEDS ORDERED: Nursing to Pharmacy Communication ONE (16:32)
[2018-09-18] MEDS: WARFARIN SOD 7.5 MG TAB PO SCH (17:30)
[2018-09-18] MEDS: CEFAZOLIN 2000MG 2,000 MG/15 ML SYR IV SCH (20:44)
[2018-09-18] MEDS ORDERED: NON-FORMULARY MEDICATION (Biotin 1 MG) PO SCH (21:00)
[2018-09-18] MEDS ORDERED: CRANBERRY 4200 MG PO SCH (21:00)
[2018-09-18] MEDS: DOCUSATE SODIUM/SENNA 50/8.6MG TAB PO SCH ×2 (21:07→21:09)
[2018-09-18] MEDS: SENNA 8.6 MG TAB PO SCH (21:09)
[2018-09-18] MEDS: ONDANSETRON INJ 2 MG/ML 2 ML VIAL IV PRN (21:10)
[2018-09-19] MEDS: CEFAZOLIN 2000MG 2,000 MG/15 ML SYR IV SCH (04:23)
[2018-09-19 05:50] LABS: Basophils # (auto) 0.03 K/uL (0-0.2); Basophils % (auto) 0.5 %; Eosinophils # (auto) 0.11 K/uL (0-0.5); Eosinophils % (auto) 1.9 %; Hematocrit (blood only) 29.6 % (37-47); Hemoglobin 9.3 g/dL (12.0-16.0); Immature Granulocytes # (auto) 0.02 K/uL (0.00-0.02); Immature Granulocytes % (auto) 0.3 %; Lymphocytes # (auto) 0.98 K/uL (1.2-3.4); Lymphocytes % (auto) 16.8 %; Mean Corpuscular Hgb Conc 31.4 g/dL (32-36); Mean Corpuscular Volume 99.7 fL (80-100); Mean Platelet Volume 8.8 fL (7.4-10.4); Monocytes # (auto) 0.46 K/uL (0.11-0.59); Monocytes % (auto) 7.9 %; Neutrophils # (auto) 4.25 K/uL (1.4-6.5); Neutrophils % (auto) 72.6 %; Platelet Count 139 K/uL (130-400); RDW Coefficient of Variation 19.5 % (11.5-14.5); RDW Standard Deviation 68.9 fL (36.4-46.3); Red Blood Count 2.97 M/uL (4.2-5.4); White Blood Count 5.85 K/uL (4.8-10.8)
[2018-09-19 06:00] LABS: INR 1.2 (0.9-1.1); Prothrombin Time 12.2 Seconds (9.0-12.0)
--- NOTE | 2018-09-19 06:00 | Emergency Department Note ---
ED Visit Note ED visit 09/17/2018: HPI: Mechanical fall onto left hip. AFVSS, LLE shortened and externally rotated. Distal PMS intact. CT shows left intertrochanteric fx. Plan: Ortho consult and admit. I reviewed the patient's past medical history, medications, and visit nursing notes. I discussed the case with the physician enrichment assistant, examined the patient, and agree with the findings and plan as documented in PAC aVrun's note. : Hip fracture, left Qualifiers: Encounter type: initial encounter Fracture type: closed Qualified Code(s): S72.002A - Fracture of unspecified part of neck of left femur, initial encounter for closed fracture
[2018-09-19] MEDS: HYDROmorphone INJ 0.5 MG/0.5 ML SYR IV PRN ×3 (06:09→20:21)
[2018-09-19 06:11] LABS: BUN Creatinine Ratio 5.9 (10-20); Calcium 8.6 mg/dl (8.5-10.1); Creatinine Clr Calc Pharmacy 11.6 ml/min; Est GFR (African American) 11.2; Est GFR (Non-African American) 9.7; Potassium 4.8 mmol/L (3.5-5.1)
[2018-09-19] MEDS ORDERED: SODIUM CHLORIDE 0.9% 1000ML 1,000 ML IV PRN (07:00)
[2018-09-19] MEDS: CALCIUM ACETATE 667 MG CAP PO SCH (07:39)
[2018-09-19] MEDS: OXYCODONE HCL IR 5 MG TAB (IMMEDIATE RELEASE) PO PRN ×2 (07:44→14:15)
[2018-09-19] MEDS: ONDANSETRON INJ 2 MG/ML 2 ML VIAL IV PRN ×2 (07:45→14:29)
[2018-09-19] MEDS: SACCHAROMYCES BOULARDII 250 MG CAP PO SCH (08:29)
[2018-09-19] MEDS: PANTOprazole 40 MG TAB PO SCH (08:29)
[2018-09-19] MEDS: OXcarbazepine 150 MG TABLET PO SCH ×2 (08:30→20:15)
[2018-09-19] MEDS: CETIRIZINE HCL 10 MG TABLET PO SCH ×2 (08:30→08:47)
[2018-09-19] MEDS: INSULIN ASPART 100 UNITS/ML 3 ML PEN SC SCH ×4 (08:32→20:56)
--- NOTE | 2018-09-19 08:39 | Orthopedic Progress Note ---
Date of Service September 19, 2018 Assessment & Plan (1) Hip fracture, left: Postop day 1-status post ORIF left femur fracture by Dr. Angeles on September 18, 2018 May be out of bed, weight-bear as tolerated left lower extremity with the assistance of a walker. PT/OT to start today. Chronic Coumadin resumed. Teds and foot pumps for DVT prophylaxis No hip precautions necessary, allowed for range of motion left ankle and left knee and left hip as tolerated. Out of bed with assistance. financial services counselor/case management for disposition. Patient states that she will be returning home at discharge, she typically uses [facility]. She states her is there to help and they have all of the equipment that is needed. Will discuss findings with Dr. Angeles. Plan for dressing changes left hip tomorrow. We will continue to follow during admission. Present on Admission?: Yes Subjective Patient states doing fairly well. She does not have much pain in her left hip. Notices some pain in her low back. She has been out of bed with a walker. She is complaining of decreased appetite which she has had for some time even prior to entering the hospital but is limited this time around due to some nausea. She states she does best with p.o. Phenergan which will be ordered. Denies any chest pain, shortness of breath or vomiting. Physical Exam Vital Signs (Past 24 Hours): Last Vital Signs Temp 36.8 C 09/19/18 06:30 Pulse 82 09/19/18 06:30 Resp 16 09/19/18 06:30 BP 110/72 09/19/18 06:30 Pulse Ox 93 09/19/18 06:30 Physical Exam: Left hip incisions, dressings clean, dry and intact. No significant left lower extremity edema. Tolerates gentle range of motion of her left ankle with dorsiflexion plantarflexion. Strength is 5/5. Distal pulses are 1+. Distal sensation is normal. She is most comfortable with holding her left knee and some flexion encouraged extension to prevent stiffness. No effusion to her left knee. Nontender with palpation about her left knee. No significant thigh edema noticeable. Results & Data Laboratory Results 09/19/18 09/19/18 09/19/18 Range/Units 06:29 05:26 05:26 WBC (4.8-10.8) K/uL RBC (4.2-5.4) M/uL Hgb (12.0-16.0) g/dL Hct (37-47) % MCV (80-100) fL MCH (25-34) pg MCHC (32-36) g/dL RDW Std Deviation (36.4-46.3) fL RDW Coeff of Alejandra (11.5-14.5) % Plt Count (130-400) K/uL MPV (7.4-10.4) fL Immature Gran % (Auto) % Neut % (Auto) % Lymph % (Auto) % [place] % (Auto) % Eos % (Auto) % Baso % (Auto) % Immature Gran # (Auto) (0.00-0.02) K/uL Neut # (Auto) (1.4-6.5) K/uL Lymph # (Auto) (1.2-3.4) K/uL [place] # (Auto) (0.11-0.59) K/uL Eos # (Auto) (0-0.5) K/uL Baso # (Auto) (0-0.2) K/uL PT 12.2 H (9.0-12.0) Seconds INR 1.2 H (0.9-1.1) Sodium (136-145) mmol/L Potassium (3.5-5.1) mmol/L Chloride (98-107) mmol/L Carbon Dioxide (21-32) mmol/L Anion Gap (3-11) BUN (7-18) mg/dl Creatinine (0.6-1.2) mg/dl Est Cr Clr Drug Dosing ml/min Est GFR ( Amer) Est GFR (Non-Af Amer) BUN/Creatinine Ratio (10-20) Glucose (70-99) mg/dl POC Glucose 117 H (70-99) Calcium (8.5-10.1) mg/dl Phosphorus (2.5-4.9) mg/dl Magnesium (1.8-2.4) mg/dl Total Bilirubin (0.2-1) mg/dl AST (15-37) U/L ALT (12-78) U/L Alkaline Phosphatase (45-117) U/L Total Protein (6.4-8.2) gm/dl Albumin (3.4-5.0) gm/dl Globulin (2.5-4.0) gm/dl Albumin/Globulin Ratio (0.9-2) 25-OH Vitamin D Total 44.7 (30-100) ng/ml 09/19/18 09/19/18 09/18/18 Range/Units 05:26 05:26 20:43 WBC 5.85 (4.8-10.8) K/uL RBC 2.97 L (4.2-5.4) M/uL Hgb 9.3 L (12.0-16.0) g/dL Hct 29.6 L (37-47) % MCV 99.7 (80-100) fL MCH 31.3 (25-34) pg MCHC 31.4 L (32-36) g/dL RDW Std Deviation 68.9 H (36.4-46.3) fL RDW Coeff of Alejandra 19.5 H (11.5-14.5) % Plt Count 139 (130-400) K/uL MPV 8.8 (7.4-10.4) fL Immature Gran % (Auto) 0.3 % Neut % (Auto) 72.6 % Lymph % (Auto) 16.8 % [place] % (Auto) 7.9 % Eos % (Auto) 1.9 % Baso % (Auto) 0.5 % Immature Gran # (Auto) 0.02 (0.00-0.02) K/uL Neut # (Auto) 4.25 (1.4-6.5) K/uL Lymph # (Auto) 0.98 L (1.2-3.4) K/uL [place] # (Auto) 0.46 (0.11-0.59) K/uL Eos # (Auto) 0.11 (0-0.5) K/uL Baso # (Auto) 0.03 (0-0.2) K/uL PT (9.0-12.0) Seconds INR (0.9-1.1) Sodium 135 L (136-145) mmol/L Potassium 4.8 (3.5-5.1) mmol/L Chloride 100 (98-107) mmol/L Carbon Dioxide 28 (21-32) mmol/L Anion Gap 7.0 (3-11) BUN 25 H (7-18) mg/dl Creatinine 4.21 H D (0.6-1.2) mg/dl Est Cr Clr Drug Dosing 11.6 ml/min Est GFR ( Amer) 11.2 Est GFR (Non-Af Amer) 9.7 BUN/Creatinine Ratio 5.9 L (10-20) Glucose 104 H (70-99) mg/dl POC Glucose 134 H (70-99) Calcium 8.6 (8.5-10.1) mg/dl Phosphorus 3.0 D (2.5-4.9) mg/dl Magnesium (1.8-2.4) mg/dl Total Bilirubin (0.2-1) mg/dl AST (15-37) U/L ALT (12-78) U/L Alkaline Phosphatase (45-117) U/L Total Protein (6.4-8.2) gm/dl Albumin (3.4-5.0) gm/dl Globulin (2.5-4.0) gm/dl Albumin/Globulin Ratio (0.9-2) 25-OH Vitamin D Total (30-100) ng/ml 09/18/18 09/18/18 09/18/18 Range/Units 17:29 15:01 08:00 WBC (4.8-10.8) K/uL RBC (4.2-5.4) M/uL Hgb (12.0-16.0) g/dL Hct (37-47) % MCV (80-100) fL MCH (25-34) pg MCHC (32-36) g/dL RDW Std Deviation (36.4-46.3) fL RDW Coeff of Alejandra (11.5-14.5) % Plt Count (130-400) K/uL MPV (7.4-10.4) fL Immature Gran % (Auto) % Neut % (Auto) % Lymph % (Auto) % [place] % (Auto) % Eos % (Auto) % Baso % (Auto) % Immature Gran # (Auto) (0.00-0.02) K/uL Neut # (Auto) (1.4-6.5) K/uL Lymph # (Auto) (1.2-3.4) K/uL [place] # (Auto) (0.11-0.59) K/uL Eos # (Auto) (0-0.5) K/uL Baso # (Auto) (0-0.2) K/uL PT (9.0-12.0) Seconds INR (0.9-1.1) Sodium 136 (136-145) mmol/L Potassium 4.3 (3.5-5.1) mmol/L Chloride 101 (98-107) mmol/L Carbon Dioxide 30 (21-32) mmol/L Anion Gap 6.0 (3-11) BUN 18 (7-18) mg/dl Creatinine 3.46 H (0.6-1.2) mg/dl Est Cr Clr Drug Dosing 14.1 ml/min Est GFR ( Amer) 14.2 Est GFR (Non-Af Amer) 12.3 BUN/Creatinine Ratio 5.1 L (10-20) Glucose 124 H (70-99) mg/dl POC Glucose 157 H 163 H (70-99) Calcium 9.3 (8.5-10.1) mg/dl Phosphorus 1.7 L (2.5-4.9) mg/dl Magnesium 1.9 (1.8-2.4) mg/dl Total Bilirubin 0.7 (0.2-1) mg/dl AST 19 (15-37) U/L ALT 17 (12-78) U/L Alkaline Phosphatase 90 (45-117) U/L Total Protein 6.7 (6.4-8.2) gm/dl Albumin 2.9 L (3.4-5.0) gm/dl Globulin 3.8 (2.5-4.0) gm/dl Albumin/Globulin Ratio 0.8 L (0.9-2) 25-OH Vitamin D Total (30-100) ng/ml (1) Hip fracture, left Encounter type: initial encounter Fracture type: closed Qualified Code(s): S72.002A - Fracture of unspecified part of neck of left femur, initial encounter for closed fracture
[2018-09-19] MEDS ORDERED: PROMETHAZINE HCL 25 MG TAB PO PRN (08:42)
[2018-09-19] MEDS: LABETALOL HCL 200 MG TAB PO SCH ×2 (09:15→20:13)
[2018-09-19] MEDS: BUMETANIDE 1 MG TAB PO SCH ×2 (09:15→17:11)
[2018-09-19 09:43] LABS: Hepatitis B Surface Antibody Immune
[2018-09-19 09:54] LABS: Hepatitis B Surface Antigen Neg (Neg)
--- NOTE | 2018-09-19 09:58 | Nephrology Progress Note ---
Date of Service September 19, 2018 Assessment & Plan (1) ESRD (end stage renal disease) on dialysis: -- HD orders entered into EMR and discussed with dialysis nurse medication care manager -- BP acceptable -- Volume status appropriate -- Medications are appropriate for kidney function -- HD per [facility] schedule -- PO4 binder QAC and nephrocap daily -- Monitor metabolic profile daily -- Encourage nutrition (2) Anemia: -- Epogen 3000 units QHD -- Monitor H/H daily (3) Hip fracture, left: -- POD #1 (4) HTN (hypertension): Subjective No acute events overnight. Kalyani feels reasonably well this morning. Some lower back discomfort but denies pain. No dyspnea. No fevers or chills. Appetite poor. Denies constipation. Able to stand at the bedside this morning. Overall she is optimistic about her recovery. Review of Systems All systems reviewed & are unremarkable except as noted in HPI & below Physical Exam Vital Signs (Past 24 Hours): Last Vital Signs Temp 37.0 C 09/19/18 08:00 Pulse 89 09/19/18 08:00 Resp 13 09/19/18 08:00 BP 139/75 09/19/18 08:00 Pulse Ox 94 09/19/18 08:00 Constitutional: well developed; not ill appearing and not edematous Eyes: no scleral abnormality and no corneal abnormality ENMT: Mouth: no oral mucosal abnormality and oral mucous membranes not dry Neck: normal visual inspection and trachea midline Respiratory: normal respiratory effort; no respiratory distress Auscultation: lungs clear to auscultation bilaterally Cardiovascular: Heart Sounds: normal S1, normal S2 and + murmur; no gallop and no cardiac rub Extremities: + AV fistula Gastrointestinal (Abdomen): Percussion/Palpation: abdomen soft; abdomen nontender Musculoskeletal: Extremities: no cyanosis and no clubbing Skin: + turgor decreased; no rashes Neurologic: Motor/Sensory: no tremor and no asterixis Psychiatric: Affect: euthymic affect Insight: good insight Results & Data Laboratory Results Laboratory Results - last 24 hr 09/18/18 09/18/18 09/18/18 15:01 17:29 20:43 WBC RBC Hgb Hct MCV MCH MCHC RDW Std Deviation RDW Coeff of Alejandra Plt Count MPV Immature Gran % (Auto) Neut % (Auto) Lymph % (Auto) [place] % (Auto) Eos % (Auto) Baso % (Auto) Immature Gran # (Auto) Neut # (Auto) Lymph # (Auto) [place] # (Auto) Eos # (Auto) Baso # (Auto) PT INR Sodium Potassium Chloride Carbon Dioxide Anion Gap BUN Creatinine Est Cr Clr Drug Dosing Est GFR ( Amer) Est GFR (Non-Af Amer) BUN/Creatinine Ratio Glucose POC Glucose 163 H 157 H 134 H Calcium Phosphorus 25-OH Vitamin D Total Hep Bs Antigen Hep Bs Antibody Hep Bs Antibody, Quant 09/19/18 09/19/18 09/19/18 05:26 05:26 05:26 WBC 5.85 RBC 2.97 L Hgb 9.3 L Hct 29.6 L MCV 99.7 MCH 31.3 MCHC 31.4 L RDW Std Deviation 68.9 H RDW Coeff of Alejandra 19.5 H Plt Count 139 MPV 8.8 Immature Gran % (Auto) 0.3 Neut % (Auto) 72.6 Lymph % (Auto) 16.8 [place] % (Auto) 7.9 Eos % (Auto) 1.9 Baso % (Auto) 0.5 Immature Gran # (Auto) 0.02 Neut # (Auto) 4.25 Lymph # (Auto) 0.98 L [place] # (Auto) 0.46 Eos # (Auto) 0.11 Baso # (Auto) 0.03 PT INR Sodium 135 L Potassium 4.8 Chloride 100 Carbon Dioxide 28 Anion Gap 7.0 BUN 25 H Creatinine 4.21 H D Est Cr Clr Drug Dosing 11.6 Est GFR ( Amer) 11.2 Est GFR (Non-Af Amer) 9.7 BUN/Creatinine Ratio 5.9 L Glucose 104 H POC Glucose Calcium 8.6 Phosphorus 3.0 D 25-OH Vitamin D Total 44.7 Hep Bs Antigen Hep Bs Antibody Hep Bs Antibody, Quant 09/19/18 09/19/18 09/19/18 05:26 05:26 06:29 WBC RBC Hgb Hct MCV MCH MCHC RDW Std Deviation RDW Coeff of Alejandra Plt Count MPV Immature Gran % (Auto) Neut % (Auto) Lymph % (Auto) [place] % (Auto) Eos % (Auto) Baso % (Auto) Immature Gran # (Auto) Neut # (Auto) Lymph # (Auto) [place] # (Auto) Eos # (Auto) Baso # (Auto) PT 12.2 H INR 1.2 H Sodium Potassium Chloride Carbon Dioxide Anion Gap BUN Creatinine Est Cr Clr Drug Dosing Est GFR ( Amer) Est GFR (Non-Af Amer) BUN/Creatinine Ratio Glucose POC Glucose 117 H Calcium Phosphorus 25-OH Vitamin D Total Hep Bs Antigen Neg Hep Bs Antibody Immune Hep Bs Antibody, Quant 41.13 (1) Anemia Anemia type: other cause Other causes of anemia: chronic disease, other Qualified Code(s): D63.8 - Anemia in other chronic diseases classified elsewhere (2) Hip fracture, left Encounter type: initial encounter Fracture type: closed Qualified Code(s): S72.002A - Fracture of unspecified part of neck of left femur, initial encounter for closed fracture (3) HTN (hypertension) Hypertension type: essential hypertension Qualified Code(s): I10 - Essential (primary) hypertension
[2018-09-19] MEDS ORDERED: IRON SUCROSE 200 MG in SYRINGE 0 ML IV SCH (11:00)
[2018-09-19] MEDS ORDERED: EPOETIN ALFA 3,000 UNITS in SYRINGE 0 ML IV SCH (11:00)
[2018-09-19] MEDS: WARFARIN SOD 10 MG TAB PO SCH (15:32)
[2018-09-19] MEDS ORDERED: WARFARIN SOD 7.5 MG TAB PO SCH (16:00)
--- NOTE | 2018-09-19 17:44 | Hospitalist Progress Note ---
Date of Service September 19, 2018 Assessment & Plan (1) Hip fracture, left: - Presented with intertrochanteric fracture of left femur following mechanical fall at home. - Orthopedics consulted, status post intramedullary dhaval of the left femur 09/18 - Dilaudid and Oxycodone prn pain (avoid Morphine in setting of ESRD). - DVT ppx: will continue home Warfarin. Will add bridging with heparin gtt as patient has history of CVA with Afib and INR is only 1.2 and patient is now 24 hours out from surgery - PT/OT ordered. (2) ESRD (end stage renal disease) on dialysis: - Nephrology following, appreciate input. - Continue HD qMWF. - Continue Bumex 2 mg PO BID, PhosLo and Nephrocaps. - Renally dose all meds for GFR <10. - Monitor renal function, electrolytes daily; monitor daily weights and I/Os. (3) Atrial fibrillation: - Continue labetalol as prescribed. - INR was subtherapeutic today at 1.2 -- will resume 10 mg qMWF, 7.5 mg every other day. Add heparin bridging as above (4) Anemia: - Chronic anemia, is currently at baseline. - Will need Epogen for hemoglobin level <10 per nephrology. - Monitor CBC qAM. (5) Clostridium difficile infection: - Diagnosed with C. diff during recent hospitalization. - Completed course of PO abx. - Minimize abx exposure; Florastor daily. (6) Diabetes: - Most recent A1C was 6 in Mar 2018. - CCD as tolerated. - Monitor gluc checks ac/hs with SSI coverage. (7) HTN (hypertension): - Continue Labetalol and Bumex as prescribed. (8) Trigeminal neuralgia: - Continue Trileptal as prescribed. (9) Cirrhosis: - CT Abdomen performed during her last hospital admission revealed a slightly nodular contour of the liver. Density consistent with mild hepatic steatosis. - LFTs are within normal limits. - Will need outpatient work up. (10) DVT prophylaxis: - Resume Warfarin per orthopedic recs, heparin gtt to bridge Dispo: Med/surg s/p OR. PT/OT ordered. Subjective Ms. Diaz is feeling a bit nauseas and tired following dialysis which is normal for her. Her pain is well controlled. Review of Systems All systems reviewed & are unremarkable except as noted in HPI & below Physical Exam Vital Signs (Past 24 Hours): Last Vital Signs Temp 36.8 C 09/19/18 15:27 Pulse 82 09/19/18 15:27 Resp 18 09/19/18 15:27 BP 151/70 H 09/19/18 15:27 Pulse Ox 94 09/19/18 15:27 Physical Exam: General: no distress Eyes: normal inspection, PERLL Respiratory: chest non tender, clear to auscultation, normal breath sounds, no respiratory distress, no accessory muscle use Cardiac:irregular rate and rhythm, no rub or gallop, no murmur, no edema, no jvd GI/: active bowel sounds, no abd pain or tenderness, soft, non distended Extremities: normal range of motion, normal strength, non tender Neuro/Psych: alert and oriented x 3, normal mood and affect Skin: normal color, dry Results & Data Laboratory Results Abnormal lab results 09/18/18 09/19/18 09/19/18 Range/Units 20:43 05:26 05:26 RBC 2.97 L (4.2-5.4) M/uL Hgb 9.3 L (12.0-16.0) g/dL Hct 29.6 L (37-47) % MCHC 31.4 L (32-36) g/dL RDW Std Deviation 68.9 H (36.4-46.3) fL RDW Coeff of Alejandra 19.5 H (11.5-14.5) % Lymph # (Auto) 0.98 L (1.2-3.4) K/uL PT (9.0-12.0) Seconds INR (0.9-1.1) Sodium 135 L (136-145) mmol/L BUN 25 H (7-18) mg/dl Creatinine 4.21 H D (0.6-1.2) mg/dl BUN/Creatinine Ratio 5.9 L (10-20) Glucose 104 H (70-99) mg/dl POC Glucose 134 H (70-99) 09/19/18 09/19/18 09/19/18 Range/Units 05:26 06:29 14:14 RBC (4.2-5.4) M/uL Hgb (12.0-16.0) g/dL Hct (37-47) % MCHC (32-36) g/dL RDW Std Deviation (36.4-46.3) fL RDW Coeff of Alejandra (11.5-14.5) % Lymph # (Auto) (1.2-3.4) K/uL PT 12.2 H (9.0-12.0) Seconds INR 1.2 H (0.9-1.1) Sodium (136-145) mmol/L BUN (7-18) mg/dl Creatinine (0.6-1.2) mg/dl BUN/Creatinine Ratio (10-20) Glucose (70-99) mg/dl POC Glucose 117 H 126 H (70-99) // Range/Units 17:01 RBC (4.2-5.4) M/uL Hgb (12.0-16.0) g/dL Hct (37-47) % MCHC (32-36) g/dL RDW Std Deviation (36.4-46.3) fL RDW Coeff of Alejandra (11.5-14.5) % Lymph # (Auto) (1.2-3.4) K/uL PT (9.0-12.0) Seconds INR (0.9-1.1) Sodium (136-145) mmol/L BUN (7-18) mg/dl Creatinine (0.6-1.2) mg/dl BUN/Creatinine Ratio (10-20) Glucose (70-99) mg/dl POC Glucose 167 H (70-99) (1) Hip fracture, left Encounter type: initial encounter Fracture type: closed Qualified Code(s): S72.002A - Fracture of unspecified part of neck of left femur, initial encounter for closed fracture (2) Atrial fibrillation Atrial fibrillation type: permanent Qualified Code(s): I48.2 - Chronic atrial fibrillation (3) Anemia Anemia type: other cause Other causes of anemia: chronic disease, other Qualified Code(s): D63.8 - Anemia in other chronic diseases classified elsewhere (4) Diabetes Diabetes mellitus type: type 2 Diabetes mellitus long term care phlebotomist insulin use: without long term care phlebotomist use Diabetes mellitus complication status: without complication Qualified Code(s): E11.9 - Type 2 diabetes mellitus without complications (5) HTN (hypertension) Hypertension type: essential hypertension Qualified Code(s): I10 - Essential (primary) hypertension
[2018-09-19] MEDS ORDERED: Heparin IV Standard *NO* Bolus IV ONE (17:45)
[2018-09-19 19:17] LABS: Basophils # (auto) 0.02 K/uL (0-0.2); Basophils % (auto) 0.3 %; Eosinophils # (auto) 0.16 K/uL (0-0.5); Eosinophils % (auto) 2.7 %; Hematocrit (blood only) 28.1 % (37-47); Hemoglobin 8.9 g/dL (12.0-16.0); Immature Granulocytes # (auto) 0.02 K/uL (0.00-0.02); Immature Granulocytes % (auto) 0.3 %; Lymphocytes # (auto) 0.81 K/uL (1.2-3.4); Lymphocytes % (auto) 13.6 %; Mean Corpuscular Volume 97.2 fL (80-100); Mean Platelet Volume 8.9 fL (7.4-10.4); Monocytes # (auto) 0.47 K/uL (0.11-0.59); Monocytes % (auto) 7.9 %; Neutrophils # (auto) 4.48 K/uL (1.4-6.5); Neutrophils % (auto) 75.2 %; Nucleated RBC # (auto) 0.03 K/uL (0-0); Nucleated RBC % (auto) 0.5 %; Platelet Count 129 K/uL (130-400); RDW Coefficient of Variation 19.4 % (11.5-14.5); Red Blood Count 2.89 M/uL (4.2-5.4); White Blood Count 5.96 K/uL (4.8-10.8)
[2018-09-19 19:29] LABS: INR 1.3 (0.9-1.1); Partial Thromboplastin Ratio 1.3; Partial Thromboplastin Time 34.2 Seconds (21.0-31.0); Prothrombin Time 13.5 Seconds (9.0-12.0)
[2018-09-19 19:39] LABS: Mean Corpuscular Hgb Conc 31.7 g/dL (32-36)
[2018-09-19] MEDS: Heparin Adult STANDARD Wt-Based Dextrose 5% 25,000 units/500 mL IV SCH (20:05)
[2018-09-19] MEDS: SENNA 8.6 MG TAB PO SCH (20:14)
[2018-09-19] MEDS ORDERED: ENOXAPARIN 1 MG/KG SC SCH (21:00)
[2018-09-20 02:47] LABS: Partial Thromboplastin Ratio 1.1; Partial Thromboplastin Time 30.5 Seconds (21.0-31.0)
[2018-09-20] MEDS ORDERED: HEPARIN IV BOLUS 5,000 UNITS in SYRINGE 0 ML IV SCH (03:00)
[2018-09-20] MEDS: HYDROmorphone INJ 0.5 MG/0.5 ML SYR IV PRN ×2 (06:42→21:22)
[2018-09-20] MEDS: BUMETANIDE 1 MG TAB PO SCH ×2 (08:50→16:46)
[2018-09-20] MEDS: SACCHAROMYCES BOULARDII 250 MG CAP PO SCH (08:51)
[2018-09-20] MEDS: CALCIUM ACETATE 667 MG CAP PO SCH (08:52)
[2018-09-20] MEDS: PANTOprazole 40 MG TAB PO SCH (08:53)
[2018-09-20] MEDS: LABETALOL HCL 200 MG TAB PO SCH ×5 (08:53→21:01)
[2018-09-20] MEDS: OXcarbazepine 150 MG TABLET PO SCH ×2 (08:55→21:01)
[2018-09-20] MEDS: INSULIN ASPART 100 UNITS/ML 3 ML PEN SC SCH ×4 (09:01→21:10)
[2018-09-20 09:12] LABS: Basophils # (auto) 0.03 K/uL (0-0.2); Basophils % (auto) 0.5 %; Eosinophils # (auto) 0.15 K/uL (0-0.5); Eosinophils % (auto) 2.3 %; Hemoglobin 8.9 g/dL (12.0-16.0); Immature Granulocytes # (auto) 0.02 K/uL (0.00-0.02); Immature Granulocytes % (auto) 0.3 %; Lymphocytes # (auto) 0.84 K/uL (1.2-3.4); Lymphocytes % (auto) 12.7 %; Mean Corpuscular Hgb Conc 31.8 g/dL (32-36); Mean Corpuscular Volume 97.6 fL (80-100); Mean Platelet Volume 9.1 fL (7.4-10.4); Monocytes # (auto) 0.55 K/uL (0.11-0.59); Monocytes % (auto) 8.3 %; Neutrophils % (auto) 75.9 %; Platelet Count 127 K/uL (130-400); RDW Coefficient of Variation 19.7 % (11.5-14.5); RDW Standard Deviation 69.2 fL (36.4-46.3); Red Blood Count 2.87 M/uL (4.2-5.4); White Blood Count 6.59 K/uL (4.8-10.8)
[2018-09-20 09:33] LABS: INR 1.7 (0.9-1.1); Partial Thromboplastin Ratio 3.2; Prothrombin Time 16.6 Seconds (9.0-12.0)
[2018-09-20 09:51] LABS: Partial Thromboplastin Time 87.4 Seconds (21.0-31.0)
[2018-09-20 09:52] LABS: BUN Creatinine Ratio 5.9 (10-20); Calcium 8.2 mg/dl (8.5-10.1); Creatinine Clr Calc Pharmacy 15.4 ml/min; Est GFR (African American) 15.9; Est GFR (Non-African American) 13.8; Potassium 4.1 mmol/L (3.5-5.1)
[2018-09-20 09:53] LABS: Phosphorus 2.8 mg/dl (2.5-4.9)
--- NOTE | 2018-09-20 10:23 | Nephrology Progress Note ---
Date of Service September 20, 2018 Assessment & Plan (1) ESRD (end stage renal disease) on dialysis: -- HD MWF -- Metabolic profile acceptable -- BP acceptable -- Volume status appropriate -- Medications are appropriate for kidney function -- PO4 binder QAC and nephrocap daily -- Monitor metabolic profile daily -- Encourage nutrition (2) Anemia: -- Epogen 3000 units QHD -- Monitor H/H daily (3) Hip fracture, left: -- POD #2 (4) HTN (hypertension): Subjective No acute events overnight. Kalyani feels well this morning. Some lower back discomfort but this has improved slightly. Denies significant pain. No dyspnea. No fevers or chills. Appetite remains poor. Denies constipation. Review of Systems All systems reviewed & are unremarkable except as noted in HPI & below Physical Exam Vital Signs (Past 24 Hours): Last Vital Signs Temp 37.6 C H 09/20/18 06:48 Pulse 87 09/20/18 06:48 Resp 18 09/20/18 06:48 BP 143/80 H 09/20/18 06:48 Pulse Ox 92 09/20/18 06:48 Constitutional: well developed; not ill appearing and not edematous Eyes: no scleral abnormality and no corneal abnormality ENMT: Mouth: no oral mucosal abnormality and oral mucous membranes not dry Neck: normal visual inspection and trachea midline Respiratory: normal respiratory effort; no respiratory distress Auscultation: lungs clear to auscultation bilaterally Cardiovascular: Heart Sounds: normal S1, normal S2 and + murmur; no gallop and no cardiac rub Extremities: + AV fistula Gastrointestinal (Abdomen): Percussion/Palpation: abdomen soft; abdomen nontender Musculoskeletal: Extremities: no cyanosis and no clubbing Skin: + turgor decreased; no rashes Neurologic: Motor/Sensory: no tremor and no asterixis Psychiatric: Affect: euthymic affect Insight: good insight Results & Data Laboratory Results Laboratory Results - last 24 hr 09/19/18 09/19/18 09/19/18 14:14 17:01 19:06 WBC 5.96 RBC 2.89 L Hgb 8.9 L Hct 28.1 L MCV 97.2 MCH 30.8 MCHC 31.7 L RDW Std Deviation 67.0 H RDW Coeff of Alejandra 19.4 H Plt Count 129 L MPV 8.9 Immature Gran % (Auto) 0.3 Neut % (Auto) 75.2 Lymph % (Auto) 13.6 [place] % (Auto) 7.9 Eos % (Auto) 2.7 Baso % (Auto) 0.3 Immature Gran # (Auto) 0.02 Neut # (Auto) 4.48 Lymph # (Auto) 0.81 L [place] # (Auto) 0.47 Eos # (Auto) 0.16 Baso # (Auto) 0.02 Absolute Nucleated RBC 0.03 H Nucleated RBC % (auto) 0.5 PT INR APTT PTT Ratio Sodium Potassium Chloride Carbon Dioxide Anion Gap BUN Creatinine Est Cr Clr Drug Dosing Est GFR ( Amer) Est GFR (Non-Af Amer) BUN/Creatinine Ratio Glucose POC Glucose 126 H 167 H Calcium Phosphorus 09/19/18 09/19/18 09/20/18 19:06 20:48 02:12 WBC RBC Hgb Hct MCV MCH MCHC RDW Std Deviation RDW Coeff of Alejandra Plt Count MPV Immature Gran % (Auto) Neut % (Auto) Lymph % (Auto) [place] % (Auto) Eos % (Auto) Baso % (Auto) Immature Gran # (Auto) Neut # (Auto) Lymph # (Auto) [place] # (Auto) Eos # (Auto) Baso # (Auto) Absolute Nucleated RBC Nucleated RBC % (auto) PT 13.5 H INR 1.3 H APTT 34.2 H 30.5 PTT Ratio 1.3 1.1 Sodium Potassium Chloride Carbon Dioxide Anion Gap BUN Creatinine Est Cr Clr Drug Dosing Est GFR ( Amer) Est GFR (Non-Af Amer) BUN/Creatinine Ratio Glucose POC Glucose 140 H Calcium Phosphorus 09/20/18 09/20/18 09/20/18 08:20 08:57 08:57 WBC 6.59 RBC 2.87 L Hgb 8.9 L Hct 28.0 L MCV 97.6 MCH 31.0 MCHC 31.8 L RDW Std Deviation 69.2 H RDW Coeff of Alejandra 19.7 H Plt Count 127 L MPV 9.1 Immature Gran % (Auto) 0.3 Neut % (Auto) 75.9 Lymph % (Auto) 12.7 [place] % (Auto) 8.3 Eos % (Auto) 2.3 Baso % (Auto) 0.5 Immature Gran # (Auto) 0.02 Neut # (Auto) 5.00 Lymph # (Auto) 0.84 L [place] # (Auto) 0.55 Eos # (Auto) 0.15 Baso # (Auto) 0.03 Absolute Nucleated RBC Nucleated RBC % (auto) PT INR APTT PTT Ratio Sodium 131 L Potassium 4.1 Chloride 98 Carbon Dioxide 30 Anion Gap 3.0 BUN 19 H Creatinine 3.15 H D Est Cr Clr Drug Dosing 15.4 Est GFR ( Amer) 15.9 Est GFR (Non-Af Amer) 13.8 BUN/Creatinine Ratio 5.9 L Glucose 187 H POC Glucose 162 H Calcium 8.2 L Phosphorus 2.8 09/20/18 08:57 WBC RBC Hgb Hct MCV MCH MCHC RDW Std Deviation RDW Coeff of Alejandra Plt Count MPV Immature Gran % (Auto) Neut % (Auto) Lymph % (Auto) [place] % (Auto) Eos % (Auto) Baso % (Auto) Immature Gran # (Auto) Neut # (Auto) Lymph # (Auto) [place] # (Auto) Eos # (Auto) Baso # (Auto) Absolute Nucleated RBC Nucleated RBC % (auto) PT 16.6 H INR 1.7 H APTT 87.4 H* PTT Ratio 3.2 Sodium Potassium Chloride Carbon Dioxide Anion Gap BUN Creatinine Est Cr Clr Drug Dosing Est GFR ( Amer) Est GFR (Non-Af Amer) BUN/Creatinine Ratio Glucose POC Glucose Calcium Phosphorus (1) Anemia Anemia type: other cause Other causes of anemia: chronic disease, other Qualified Code(s): D63.8 - Anemia in other chronic diseases classified elsewhere (2) Hip fracture, left Encounter type: initial encounter Fracture type: closed Qualified Code(s): S72.002A - Fracture of unspecified part of neck of left femur, initial encounter for closed fracture (3) HTN (hypertension) Hypertension type: essential hypertension Qualified Code(s): I10 - Essential (primary) hypertension
--- NOTE | 2018-09-20 11:42 | Hospitalist Progress Note ---
Date of Service September 20, 2018 Assessment & Plan (1) Hip fracture, left: - Presented with intertrochanteric fracture of left femur following mechanical fall at home. - Orthopedics consulted, status post intramedullary dhaval of the left femur 09/18 - Dilaudid and Oxycodone prn pain (avoid Morphine in setting of ESRD). - DVT ppx: will continue home Warfarin. Continue bridging with heparin gtt - PT/OT ordered. (2) ESRD (end stage renal disease) on dialysis: - Nephrology following, appreciate input. - Continue HD qMWF. - Continue Bumex 2 mg PO BID, PhosLo and Nephrocaps. - Renally dose all meds for GFR <10. - Monitor renal function, electrolytes daily; monitor daily weights and I/Os. (3) Atrial fibrillation: - Continue labetalol as prescribed. - INR was subtherapeutic today at 1.7 -- continue 10 mg qMWF, 7.5 mg every other day. continue heparin bridging as above (4) Anemia: - Chronic anemia, is currently at baseline. - Will need Epogen for hemoglobin level <10 per nephrology. - Monitor CBC qAM. (5) Clostridium difficile infection: - Diagnosed with C. diff during recent hospitalization. - Completed course of PO abx. - Minimize abx exposure; Florastor daily. (6) Diabetes: - Most recent A1C was 6 in Mar 2018. - CCD as tolerated. - Monitor gluc checks ac/hs with SSI coverage. (7) HTN (hypertension): - Continue Labetalol and Bumex as prescribed. (8) Trigeminal neuralgia: - Continue Trileptal as prescribed. (9) Cirrhosis: - CT Abdomen performed during her last hospital admission revealed a slightly nodular contour of the liver. Density consistent with mild hepatic steatosis. - LFTs are within normal limits. - Will need outpatient work up. (10) DVT prophylaxis: - Continue Warfarin per orthopedic recs, heparin gtt to bridge Dispo: Med/surg s/p OR. PT/OT recommending SNF but patient refusing, would like instead. Subjective Ms. Diaz continues to feel fatigued. She is up to a chair. Her pain is well controlled Review of Systems All systems reviewed & are unremarkable except as noted in HPI & below Physical Exam Vital Signs (Past 24 Hours): Last Vital Signs Temp 37.6 C H 09/20/18 06:48 Pulse 87 09/20/18 06:48 Resp 18 09/20/18 06:48 BP 143/80 H 09/20/18 06:48 Pulse Ox 95 09/20/18 10:15 Physical Exam: General: no distress Eyes: normal inspection, PERLL Respiratory: chest non tender, clear to auscultation, normal breath sounds, no respiratory distress, no accessory muscle use Cardiac: irregular rate and rhythm, no rub or gallop, no murmur, no edema, no jvd GI/: active bowel sounds, no abd pain or tenderness, soft, non distended Extremities: normal range of motion, generalized weakness Neuro/Psych: alert and oriented x 3, normal mood and affect Skin: normal color, dry Results & Data Laboratory Results Abnormal lab results 09/19/18 09/19/18 09/19/18 Range/Units 14:14 17:01 19:06 RBC 2.89 L (4.2-5.4) M/uL Hgb 8.9 L (12.0-16.0) g/dL Hct 28.1 L (37-47) % MCHC 31.7 L (32-36) g/dL RDW Std Deviation 67.0 H (36.4-46.3) fL RDW Coeff of Alejandra 19.4 H (11.5-14.5) % Plt Count 129 L (130-400) K/uL Lymph # (Auto) 0.81 L (1.2-3.4) K/uL Absolute Nucleated RBC 0.03 H (0-0) K/uL PT (9.0-12.0) Seconds INR (0.9-1.1) APTT (21.0-31.0) Seconds Sodium (136-145) mmol/L BUN (7-18) mg/dl Creatinine (0.6-1.2) mg/dl BUN/Creatinine Ratio (10-20) Glucose (70-99) mg/dl POC Glucose 126 H 167 H (70-99) Calcium (8.5-10.1) mg/dl 09/19/18 09/19/18 09/20/18 Range/Units 19:06 20:48 08:20 RBC (4.2-5.4) M/uL Hgb (12.0-16.0) g/dL Hct (37-47) % MCHC (32-36) g/dL RDW Std Deviation (36.4-46.3) fL RDW Coeff of Alejandra (11.5-14.5) % Plt Count (130-400) K/uL Lymph # (Auto) (1.2-3.4) K/uL Absolute Nucleated RBC (0-0) K/uL PT 13.5 H (9.0-12.0) Seconds INR 1.3 H (0.9-1.1) APTT 34.2 H (21.0-31.0) Seconds Sodium (136-145) mmol/L BUN (7-18) mg/dl Creatinine (0.6-1.2) mg/dl BUN/Creatinine Ratio (10-20) Glucose (70-99) mg/dl POC Glucose 140 H 162 H (70-99) Calcium (8.5-10.1) mg/dl 09/20/18 09/20/18 09/20/18 Range/Units 08:57 08:57 08:57 RBC 2.87 L (4.2-5.4) M/uL Hgb 8.9 L (12.0-16.0) g/dL Hct 28.0 L (37-47) % MCHC 31.8 L (32-36) g/dL RDW Std Deviation 69.2 H (36.4-46.3) fL RDW Coeff of Alejandra 19.7 H (11.5-14.5) % Plt Count 127 L (130-400) K/uL Lymph # (Auto) 0.84 L (1.2-3.4) K/uL Absolute Nucleated RBC (0-0) K/uL PT 16.6 H (9.0-12.0) Seconds INR 1.7 H (0.9-1.1) APTT 87.4 H* (21.0-31.0) Seconds Sodium 131 L (136-145) mmol/L BUN 19 H (7-18) mg/dl Creatinine 3.15 H D (0.6-1.2) mg/dl BUN/Creatinine Ratio 5.9 L (10-20) Glucose 187 H (70-99) mg/dl POC Glucose (70-99) Calcium 8.2 L (8.5-10.1) mg/dl (1) Diabetes Diabetes mellitus complication status: without complication Diabetes mellitus long-term insulin use: without director long term care use Diabetes mellitus type: type 2 Qualified Code(s): E11.9 - Type 2 diabetes mellitus without complications (2) Anemia Anemia type: other cause Other causes of anemia: chronic disease, other Qualified Code(s): D63.8 - Anemia in other chronic diseases classified elsewhere (3) Atrial fibrillation Atrial fibrillation type: permanent Qualified Code(s): I48.2 - Chronic atrial fibrillation (4) Hip fracture, left Encounter type: initial encounter Fracture type: closed Qualified Code(s): S72.002A - Fracture of unspecified part of neck of left femur, initial encounter for closed fracture (5) HTN (hypertension) Hypertension type: essential hypertension Qualified Code(s): I10 - Essential (primary) hypertension
[2018-09-20] MEDS: OXYCODONE HCL IR 5 MG TAB (IMMEDIATE RELEASE) PO PRN (13:26)
--- NOTE | 2018-09-20 13:50 | Orthopedic Progress Note ---
Date of Service September 20, 2018 Assessment & Plan (1) Hip fracture, left: Postop day 2-status post ORIF left femur fracture by Dr. Angeles on September 18, 2018 May be out of bed, weight-bear as tolerated left lower extremity with the assistance of a walker. PT/OT to start today. Chronic Coumadin resumed - bridged with Heparin drip Teds and foot pumps for DVT prophylaxis No hip precautions necessary, allowed for range of motion left ankle and left knee and left hip as tolerated. Out of bed with assistance. program services assistant/case management for disposition. Patient states that she will be returning home at discharge, she typically uses [facility]. She states her is there to help and they have all of the equipment that is needed. Dressings changed today. Dr. Angeles present for today's visit. We will continue to follow during admission. Subjective Resting in bed, seen with Dr. Angeles. Complaining of some back pain. Better with being out of bed. No significant left hip pain with rest. Physical Exam Vital Signs (Past 24 Hours): Last Vital Signs Temp 37.6 C H 09/20/18 06:48 Pulse 77 09/20/18 13:29 Resp 18 09/20/18 06:48 BP 124/66 09/20/18 13:29 Pulse Ox 95 09/20/18 10:15 Physical Exam: left hip dressing changed, hip incisions x 3 clean, dry, intact. No active drainage, bloody serous drainage on dressings covering proximal incisions. No evidence of seroma or hematoma surrounding incisions. Mild tenderness with palpation around incisions. Redressed today. Results & Data Laboratory Results 09/20/18 09/20/18 09/20/18 Range/Units 12:52 08:57 08:57 WBC (4.8-10.8) K/uL RBC (4.2-5.4) M/uL Hgb (12.0-16.0) g/dL Hct (37-47) % MCV (80-100) fL MCH (25-34) pg MCHC (32-36) g/dL RDW Std Deviation (36.4-46.3) fL RDW Coeff of Alejandra (11.5-14.5) % Plt Count (130-400) K/uL MPV (7.4-10.4) fL Immature Gran % (Auto) % Neut % (Auto) % Lymph % (Auto) % [place] % (Auto) % Eos % (Auto) % Baso % (Auto) % Immature Gran # (Auto) (0.00-0.02) K/uL Neut # (Auto) (1.4-6.5) K/uL Lymph # (Auto) (1.2-3.4) K/uL [place] # (Auto) (0.11-0.59) K/uL Eos # (Auto) (0-0.5) K/uL Baso # (Auto) (0-0.2) K/uL Absolute Nucleated RBC (0-0) K/uL Nucleated RBC % (auto) % PT 16.6 H (9.0-12.0) Seconds INR 1.7 H (0.9-1.1) APTT 87.4 H* (21.0-31.0) Seconds PTT Ratio 3.2 Sodium 131 L (136-145) mmol/L Potassium 4.1 (3.5-5.1) mmol/L Chloride 98 (98-107) mmol/L Carbon Dioxide 30 (21-32) mmol/L Anion Gap 3.0 (3-11) BUN 19 H (7-18) mg/dl Creatinine 3.15 H D (0.6-1.2) mg/dl Est Cr Clr Drug Dosing 15.4 ml/min Est GFR ( Amer) 15.9 Est GFR (Non-Af Amer) 13.8 BUN/Creatinine Ratio 5.9 L (10-20) Glucose 187 H (70-99) mg/dl POC Glucose 160 H (70-99) Calcium 8.2 L (8.5-10.1) mg/dl Phosphorus 2.8 (2.5-4.9) mg/dl 09/20/18 09/20/18 09/20/18 Range/Units 08:57 08:20 02:12 WBC 6.59 (4.8-10.8) K/uL RBC 2.87 L (4.2-5.4) M/uL Hgb 8.9 L (12.0-16.0) g/dL Hct 28.0 L (37-47) % MCV 97.6 (80-100) fL MCH 31.0 (25-34) pg MCHC 31.8 L (32-36) g/dL RDW Std Deviation 69.2 H (36.4-46.3) fL RDW Coeff of Alejandra 19.7 H (11.5-14.5) % Plt Count 127 L (130-400) K/uL MPV 9.1 (7.4-10.4) fL Immature Gran % (Auto) 0.3 % Neut % (Auto) 75.9 % Lymph % (Auto) 12.7 % [place] % (Auto) 8.3 % Eos % (Auto) 2.3 % Baso % (Auto) 0.5 % Immature Gran # (Auto) 0.02 (0.00-0.02) K/uL Neut # (Auto) 5.00 (1.4-6.5) K/uL Lymph # (Auto) 0.84 L (1.2-3.4) K/uL [place] # (Auto) 0.55 (0.11-0.59) K/uL Eos # (Auto) 0.15 (0-0.5) K/uL Baso # (Auto) 0.03 (0-0.2) K/uL Absolute Nucleated RBC (0-0) K/uL Nucleated RBC % (auto) % PT (9.0-12.0) Seconds INR (0.9-1.1) APTT 30.5 (21.0-31.0) Seconds PTT Ratio 1.1 Sodium (136-145) mmol/L Potassium (3.5-5.1) mmol/L Chloride (98-107) mmol/L Carbon Dioxide (21-32) mmol/L Anion Gap (3-11) BUN (7-18) mg/dl Creatinine (0.6-1.2) mg/dl Est Cr Clr Drug Dosing ml/min Est GFR ( Amer) Est GFR (Non-Af Amer) BUN/Creatinine Ratio (10-20) Glucose (70-99) mg/dl POC Glucose 162 H (70-99) Calcium (8.5-10.1) mg/dl Phosphorus (2.5-4.9) mg/dl 09/19/18 09/19/18 09/19/18 Range/Units 20:48 19:06 19:06 WBC 5.96 (4.8-10.8) K/uL RBC 2.89 L (4.2-5.4) M/uL Hgb 8.9 L (12.0-16.0) g/dL Hct 28.1 L (37-47) % MCV 97.2 (80-100) fL MCH 30.8 (25-34) pg MCHC 31.7 L (32-36) g/dL RDW Std Deviation 67.0 H (36.4-46.3) fL RDW Coeff of Alejandra 19.4 H (11.5-14.5) % Plt Count 129 L (130-400) K/uL MPV 8.9 (7.4-10.4) fL Immature Gran % (Auto) 0.3 % Neut % (Auto) 75.2 % Lymph % (Auto) 13.6 % [place] % (Auto) 7.9 % Eos % (Auto) 2.7 % Baso % (Auto) 0.3 % Immature Gran # (Auto) 0.02 (0.00-0.02) K/uL Neut # (Auto) 4.48 (1.4-6.5) K/uL Lymph # (Auto) 0.81 L (1.2-3.4) K/uL [place] # (Auto) 0.47 (0.11-0.59) K/uL Eos # (Auto) 0.16 (0-0.5) K/uL Baso # (Auto) 0.02 (0-0.2) K/uL Absolute Nucleated RBC 0.03 H (0-0) K/uL Nucleated RBC % (auto) 0.5 % PT 13.5 H (9.0-12.0) Seconds INR 1.3 H (0.9-1.1) APTT 34.2 H (21.0-31.0) Seconds PTT Ratio 1.3 Sodium (136-145) mmol/L Potassium (3.5-5.1) mmol/L Chloride (98-107) mmol/L Carbon Dioxide (21-32) mmol/L Anion Gap (3-11) BUN (7-18) mg/dl Creatinine (0.6-1.2) mg/dl Est Cr Clr Drug Dosing ml/min Est GFR ( Amer) Est GFR (Non-Af Amer) BUN/Creatinine Ratio (10-20) Glucose (70-99) mg/dl POC Glucose 140 H (70-99) Calcium (8.5-10.1) mg/dl Phosphorus (2.5-4.9) mg/dl 09/19/18 09/19/18 Range/Units 17:01 14:14 WBC (4.8-10.8) K/uL RBC (4.2-5.4) M/uL Hgb (12.0-16.0) g/dL Hct (37-47) % MCV (80-100) fL MCH (25-34) pg MCHC (32-36) g/dL RDW Std Deviation (36.4-46.3) fL RDW Coeff of Alejandra (11.5-14.5) % Plt Count (130-400) K/uL MPV (7.4-10.4) fL Immature Gran % (Auto) % Neut % (Auto) % Lymph % (Auto) % [place] % (Auto) % Eos % (Auto) % Baso % (Auto) % Immature Gran # (Auto) (0.00-0.02) K/uL Neut # (Auto) (1.4-6.5) K/uL Lymph # (Auto) (1.2-3.4) K/uL [place] # (Auto) (0.11-0.59) K/uL Eos # (Auto) (0-0.5) K/uL Baso # (Auto) (0-0.2) K/uL Absolute Nucleated RBC (0-0) K/uL Nucleated RBC % (auto) % PT (9.0-12.0) Seconds INR (0.9-1.1) APTT (21.0-31.0) Seconds PTT Ratio Sodium (136-145) mmol/L Potassium (3.5-5.1) mmol/L Chloride (98-107) mmol/L Carbon Dioxide (21-32) mmol/L Anion Gap (3-11) BUN (7-18) mg/dl Creatinine (0.6-1.2) mg/dl Est Cr Clr Drug Dosing ml/min Est GFR ( Amer) Est GFR (Non-Af Amer) BUN/Creatinine Ratio (10-20) Glucose (70-99) mg/dl POC Glucose 167 H 126 H (70-99) Calcium (8.5-10.1) mg/dl Phosphorus (2.5-4.9) mg/dl (1) Hip fracture, left Encounter type: initial encounter Fracture type: closed Qualified Code(s): S72.002A - Fracture of unspecified part of neck of left femur, initial encounter for closed fracture
[2018-09-20 16:02] LABS: Partial Thromboplastin Ratio 2.3
[2018-09-20 16:04] LABS: Partial Thromboplastin Time 61.3 Seconds (21.0-31.0)
[2018-09-20] MEDS: Heparin Adult STANDARD Wt-Based Dextrose 5% 25,000 units/500 mL IV SCH (16:43)
[2018-09-20] MEDS: WARFARIN SOD 7.5 MG TAB PO SCH (16:49)
[2018-09-20] MEDS: SENNA 8.6 MG TAB PO SCH (21:01)
[2018-09-20] MEDS: DOCUSATE SODIUM/SENNA 50/8.6MG TAB PO SCH (21:01)
[2018-09-20] MEDS: CETIRIZINE HCL 10 MG TABLET PO SCH (21:02)
[2018-09-21 06:12] LABS: Basophils # (auto) 0.02 K/uL (0-0.2); Basophils % (auto) 0.4 %; Eosinophils # (auto) 0.18 K/uL (0-0.5); Eosinophils % (auto) 3.9 %; Hematocrit (blood only) 26.8 % (37-47); Hemoglobin 8.5 g/dL (12.0-16.0); Immature Granulocytes # (auto) 0.01 K/uL (0.00-0.02); Immature Granulocytes % (auto) 0.2 %; Lymphocytes # (auto) 1.11 K/uL (1.2-3.4); Lymphocytes % (auto) 23.9 %; Mean Corpuscular Hgb Conc 31.7 g/dL (32-36); Mean Corpuscular Volume 97.8 fL (80-100); Mean Platelet Volume 9.2 fL (7.4-10.4); Monocytes # (auto) 0.47 K/uL (0.11-0.59); Monocytes % (auto) 10.1 %; Neutrophils # (auto) 2.86 K/uL (1.4-6.5); Neutrophils % (auto) 61.5 %; Platelet Count 135 K/uL (130-400); RDW Coefficient of Variation 19.5 % (11.5-14.5); RDW Standard Deviation 68.8 fL (36.4-46.3); Red Blood Count 2.74 M/uL (4.2-5.4); White Blood Count 4.65 K/uL (4.8-10.8)
[2018-09-21 06:36] LABS: BUN Creatinine Ratio 6.6 (10-20); Calcium 8.1 mg/dl (8.5-10.1); Creatinine Clr Calc Pharmacy 12.5 ml/min; Est GFR (Non-African American) 10.3; Potassium 4.1 mmol/L (3.5-5.1)
[2018-09-21 06:44] LABS: Phosphorus 3.9 mg/dl (2.5-4.9)
[2018-09-21 06:45] LABS: INR 1.9 (0.9-1.1); Partial Thromboplastin Ratio 2.6; Prothrombin Time 18.5 Seconds (9.0-12.0)
[2018-09-21 06:55] LABS: Partial Thromboplastin Time 71.6 Seconds (21.0-31.0)
[2018-09-21] MEDS ORDERED: SODIUM CHLORIDE 0.9% 1000ML 1,000 ML IV PRN (07:00)
[2018-09-21] MEDS ORDERED: IRON SUCROSE 200 MG in SYRINGE 0 ML IV SCH (07:00)
[2018-09-21] MEDS ORDERED: EPOETIN ALFA 4,000 UNIT/ML VIAL IV SCH (07:00)
[2018-09-21] MEDS: HYDROmorphone INJ 0.5 MG/0.5 ML SYR IV PRN ×2 (08:38→21:37)
[2018-09-21] MEDS: BUMETANIDE 1 MG TAB PO SCH ×2 (08:52→18:46)
[2018-09-21] MEDS: CALCIUM ACETATE 667 MG CAP PO SCH (08:53)
[2018-09-21] MEDS: OXcarbazepine 150 MG TABLET PO SCH ×2 (08:53→21:22)
[2018-09-21] MEDS: PANTOprazole 40 MG TAB PO SCH (08:53)
[2018-09-21] MEDS: SACCHAROMYCES BOULARDII 250 MG CAP PO SCH (08:53)
[2018-09-21] MEDS: INSULIN ASPART 100 UNITS/ML 3 ML PEN SC SCH ×4 (08:58→21:27)
--- NOTE | 2018-09-21 09:35 | Orthopedic Progress Note ---
Date of Service September 21, 2018 Assessment & Plan (1) Hip fracture, left: Postop day 3-status post ORIF left femur fracture by Dr. Angeles on September 18, 2018 May be out of bed, weight-bear as tolerated left lower extremity with the assistance of a walker. PT/OT to start today. Chronic Coumadin resumed - bridged with Heparin drip Teds and foot pumps for DVT prophylaxis No hip precautions necessary, allowed for range of motion left ankle and left knee and left hip as tolerated. Out of bed with assistance. animal services officer/case management for disposition. Patient states that she will be returning home at discharge, she typically uses [facility]. She states her is there to help and they have all of the equipment that is needed. Will discuss findings with Dr. Karthik Moyer for discharge from ortho standpoint when stable. We will continue to follow during admission. Subjective Feels better today, participated in PT. States she did better today than she has in the past. Physical Exam Vital Signs (Past 24 Hours): Last Vital Signs Temp 36.9 C 09/21/18 06:56 Pulse 67 09/21/18 06:56 Resp 18 09/21/18 06:56 BP 122/68 09/21/18 06:56 Pulse Ox 95 09/21/18 06:56 Physical Exam: left hip dressing clean, dry, intact. No distal edema. Able to move toes/ankle well. Results & Data Laboratory Results 09/21/18 09/21/18 09/21/18 Range/Units 08:12 05:47 05:47 WBC (4.8-10.8) K/uL RBC (4.2-5.4) M/uL Hgb (12.0-16.0) g/dL Hct (37-47) % MCV (80-100) fL MCH (25-34) pg MCHC (32-36) g/dL RDW Std Deviation (36.4-46.3) fL RDW Coeff of Alejandra (11.5-14.5) % Plt Count (130-400) K/uL MPV (7.4-10.4) fL Immature Gran % (Auto) % Neut % (Auto) % Lymph % (Auto) % [place] % (Auto) % Eos % (Auto) % Baso % (Auto) % Immature Gran # (Auto) (0.00-0.02) K/uL Neut # (Auto) (1.4-6.5) K/uL Lymph # (Auto) (1.2-3.4) K/uL [place] # (Auto) (0.11-0.59) K/uL Eos # (Auto) (0-0.5) K/uL Baso # (Auto) (0-0.2) K/uL PT 18.5 H (9.0-12.0) Seconds INR 1.9 H (0.9-1.1) APTT 71.6 H* (21.0-31.0) Seconds PTT Ratio 2.6 Sodium 130 L (136-145) mmol/L Potassium 4.1 (3.5-5.1) mmol/L Chloride 96 L (98-107) mmol/L Carbon Dioxide 29 (21-32) mmol/L Anion Gap 5.0 (3-11) BUN 26 H (7-18) mg/dl Creatinine 3.99 H D (0.6-1.2) mg/dl Est Cr Clr Drug Dosing 12.5 ml/min Est GFR ( Amer) 12.0 Est GFR (Non-Af Amer) 10.3 BUN/Creatinine Ratio 6.6 L (10-20) Glucose 120 H (70-99) mg/dl POC Glucose 143 H (70-99) Calcium 8.1 L (8.5-10.1) mg/dl Phosphorus 3.9 D (2.5-4.9) mg/dl 09/21/18 09/20/18 09/20/18 Range/Units 05:47 20:19 17:25 WBC 4.65 L (4.8-10.8) K/uL RBC 2.74 L (4.2-5.4) M/uL Hgb 8.5 L (12.0-16.0) g/dL Hct 26.8 L (37-47) % MCV 97.8 (80-100) fL MCH 31.0 (25-34) pg MCHC 31.7 L (32-36) g/dL RDW Std Deviation 68.8 H (36.4-46.3) fL RDW Coeff of Alejandra 19.5 H (11.5-14.5) % Plt Count 135 (130-400) K/uL MPV 9.2 (7.4-10.4) fL Immature Gran % (Auto) 0.2 % Neut % (Auto) 61.5 % Lymph % (Auto) 23.9 % [place] % (Auto) 10.1 % Eos % (Auto) 3.9 % Baso % (Auto) 0.4 % Immature Gran # (Auto) 0.01 (0.00-0.02) K/uL Neut # (Auto) 2.86 (1.4-6.5) K/uL Lymph # (Auto) 1.11 L (1.2-3.4) K/uL [place] # (Auto) 0.47 (0.11-0.59) K/uL Eos # (Auto) 0.18 (0-0.5) K/uL Baso # (Auto) 0.02 (0-0.2) K/uL PT (9.0-12.0) Seconds INR (0.9-1.1) APTT (21.0-31.0) Seconds PTT Ratio Sodium (136-145) mmol/L Potassium (3.5-5.1) mmol/L Chloride (98-107) mmol/L Carbon Dioxide (21-32) mmol/L Anion Gap (3-11) BUN (7-18) mg/dl Creatinine (0.6-1.2) mg/dl Est Cr Clr Drug Dosing ml/min Est GFR ( Amer) Est GFR (Non-Af Amer) BUN/Creatinine Ratio (10-20) Glucose (70-99) mg/dl POC Glucose 163 H 142 H (70-99) Calcium (8.5-10.1) mg/dl Phosphorus (2.5-4.9) mg/dl 09/20/18 09/20/18 09/20/18 Range/Units 15:37 12:52 08:57 WBC (4.8-10.8) K/uL RBC (4.2-5.4) M/uL Hgb (12.0-16.0) g/dL Hct (37-47) % MCV (80-100) fL MCH (25-34) pg MCHC (32-36) g/dL RDW Std Deviation (36.4-46.3) fL RDW Coeff of Alejandra (11.5-14.5) % Plt Count (130-400) K/uL MPV (7.4-10.4) fL Immature Gran % (Auto) % Neut % (Auto) % Lymph % (Auto) % [place] % (Auto) % Eos % (Auto) % Baso % (Auto) % Immature Gran # (Auto) (0.00-0.02) K/uL Neut # (Auto) (1.4-6.5) K/uL Lymph # (Auto) (1.2-3.4) K/uL [place] # (Auto) (0.11-0.59) K/uL Eos # (Auto) (0-0.5) K/uL Baso # (Auto) (0-0.2) K/uL PT 16.6 H (9.0-12.0) Seconds INR 1.7 H (0.9-1.1) APTT 61.3 H* 87.4 H* (21.0-31.0) Seconds PTT Ratio 2.3 3.2 Sodium (136-145) mmol/L Potassium (3.5-5.1) mmol/L Chloride (98-107) mmol/L Carbon Dioxide (21-32) mmol/L Anion Gap (3-11) BUN (7-18) mg/dl Creatinine (0.6-1.2) mg/dl Est Cr Clr Drug Dosing ml/min Est GFR ( Amer) Est GFR (Non-Af Amer) BUN/Creatinine Ratio (10-20) Glucose (70-99) mg/dl POC Glucose 160 H (70-99) Calcium (8.5-10.1) mg/dl Phosphorus (2.5-4.9) mg/dl 09/20/18 Range/Units 08:57 WBC (4.8-10.8) K/uL RBC (4.2-5.4) M/uL Hgb (12.0-16.0) g/dL Hct (37-47) % MCV (80-100) fL MCH (25-34) pg MCHC (32-36) g/dL RDW Std Deviation (36.4-46.3) fL RDW Coeff of Alejandra (11.5-14.5) % Plt Count (130-400) K/uL MPV (7.4-10.4) fL Immature Gran % (Auto) % Neut % (Auto) % Lymph % (Auto) % [place] % (Auto) % Eos % (Auto) % Baso % (Auto) % Immature Gran # (Auto) (0.00-0.02) K/uL Neut # (Auto) (1.4-6.5) K/uL Lymph # (Auto) (1.2-3.4) K/uL [place] # (Auto) (0.11-0.59) K/uL Eos # (Auto) (0-0.5) K/uL Baso # (Auto) (0-0.2) K/uL PT (9.0-12.0) Seconds INR (0.9-1.1) APTT (21.0-31.0) Seconds PTT Ratio Sodium 131 L (136-145) mmol/L Potassium 4.1 (3.5-5.1) mmol/L Chloride 98 (98-107) mmol/L Carbon Dioxide 30 (21-32) mmol/L Anion Gap 3.0 (3-11) BUN 19 H (7-18) mg/dl Creatinine 3.15 H D (0.6-1.2) mg/dl Est Cr Clr Drug Dosing 15.4 ml/min Est GFR ( Amer) 15.9 Est GFR (Non-Af Amer) 13.8 BUN/Creatinine Ratio 5.9 L (10-20) Glucose 187 H (70-99) mg/dl POC Glucose (70-99) Calcium 8.2 L (8.5-10.1) mg/dl Phosphorus 2.8 (2.5-4.9) mg/dl (1) Hip fracture, left Encounter type: initial encounter Fracture type: closed Qualified Code(s): S72.002A - Fracture of unspecified part of neck of left femur, initial encounter for closed fracture
--- NOTE | 2018-09-21 10:10 | Nephrology Progress Note ---
Date of Service September 21, 2018 Assessment & Plan (1) ESRD (end stage renal disease) on dialysis: -- HD MWF, orders entered into EMR and discussed with HD nurse -- Weight increased 4 kg, will attempt 3-4 L UF as tolerated -- BP acceptable -- Volume status appropriate -- Medications are appropriate for kidney function -- PO4 binder QAC and nephrocap daily -- Monitor metabolic profile daily -- Encourage nutrition (2) Anemia: -- Epogen 3000 units QHD -- Monitor H/H daily (3) Hip fracture, left: -- POD #3 (4) HTN (hypertension): Subjective Review of Systems All systems reviewed & are unremarkable except as noted in HPI & below No acute events overnight. Kalyani feels well this morning. Denies significant pain. No dyspnea. No fevers or chills. Appetite remains poor. Denies constipation. Physical Exam Vital Signs (Past 24 Hours): Last Vital Signs Temp 36.9 C 09/21/18 06:56 Pulse 67 09/21/18 06:56 Resp 18 09/21/18 06:56 BP 122/68 09/21/18 06:56 Pulse Ox 95 09/21/18 06:56 Constitutional: well developed; not ill appearing and not edematous Eyes: no scleral abnormality and no corneal abnormality ENMT: Mouth: no oral mucosal abnormality and oral mucous membranes not dry Neck: normal visual inspection and trachea midline Respiratory: normal respiratory effort; no respiratory distress Auscultation: lungs clear to auscultation bilaterally Cardiovascular: Heart Sounds: normal S1, normal S2 and + murmur; no gallop and no cardiac rub Extremities: + AV fistula Gastrointestinal (Abdomen): Percussion/Palpation: abdomen soft; abdomen nontender Musculoskeletal: Extremities: no cyanosis and no clubbing Skin: + turgor decreased; no rashes Neurologic: Motor/Sensory: no tremor and no asterixis Psychiatric: Affect: euthymic affect Insight: good insight Results & Data Laboratory Results Laboratory Results - last 24 hr 09/20/18 09/20/18 09/20/18 12:52 15:37 17:25 WBC RBC Hgb Hct MCV MCH MCHC RDW Std Deviation RDW Coeff of Alejandra Plt Count MPV Immature Gran % (Auto) Neut % (Auto) Lymph % (Auto) [place] % (Auto) Eos % (Auto) Baso % (Auto) Immature Gran # (Auto) Neut # (Auto) Lymph # (Auto) [place] # (Auto) Eos # (Auto) Baso # (Auto) PT INR APTT 61.3 H* PTT Ratio 2.3 Sodium Potassium Chloride Carbon Dioxide Anion Gap BUN Creatinine Est Cr Clr Drug Dosing Est GFR ( Amer) Est GFR (Non-Af Amer) BUN/Creatinine Ratio Glucose POC Glucose 160 H 142 H Calcium Phosphorus 09/20/18 09/21/18 09/21/18 20:19 05:47 05:47 WBC 4.65 L RBC 2.74 L Hgb 8.5 L Hct 26.8 L MCV 97.8 MCH 31.0 MCHC 31.7 L RDW Std Deviation 68.8 H RDW Coeff of Alejandra 19.5 H Plt Count 135 MPV 9.2 Immature Gran % (Auto) 0.2 Neut % (Auto) 61.5 Lymph % (Auto) 23.9 [place] % (Auto) 10.1 Eos % (Auto) 3.9 Baso % (Auto) 0.4 Immature Gran # (Auto) 0.01 Neut # (Auto) 2.86 Lymph # (Auto) 1.11 L [place] # (Auto) 0.47 Eos # (Auto) 0.18 Baso # (Auto) 0.02 PT INR APTT PTT Ratio Sodium 130 L Potassium 4.1 Chloride 96 L Carbon Dioxide 29 Anion Gap 5.0 BUN 26 H Creatinine 3.99 H D Est Cr Clr Drug Dosing 12.5 Est GFR ( Amer) 12.0 Est GFR (Non-Af Amer) 10.3 BUN/Creatinine Ratio 6.6 L Glucose 120 H POC Glucose 163 H Calcium 8.1 L Phosphorus 3.9 D 09/21/18 09/21/18 05:47 08:12 WBC RBC Hgb Hct MCV MCH MCHC RDW Std Deviation RDW Coeff of Alejandra Plt Count MPV Immature Gran % (Auto) Neut % (Auto) Lymph % (Auto) [place] % (Auto) Eos % (Auto) Baso % (Auto) Immature Gran # (Auto) Neut # (Auto) Lymph # (Auto) [place] # (Auto) Eos # (Auto) Baso # (Auto) PT 18.5 H INR 1.9 H APTT 71.6 H* PTT Ratio 2.6 Sodium Potassium Chloride Carbon Dioxide Anion Gap BUN Creatinine Est Cr Clr Drug Dosing Est GFR ( Amer) Est GFR (Non-Af Amer) BUN/Creatinine Ratio Glucose POC Glucose 143 H Calcium Phosphorus (1) Anemia Anemia type: other cause Other causes of anemia: chronic disease, other Qualified Code(s): D63.8 - Anemia in other chronic diseases classified elsewhere (2) Hip fracture, left Encounter type: initial encounter Fracture type: closed Qualified Code(s): S72.002A - Fracture of unspecified part of neck of left femur, initial encounter for closed fracture (3) HTN (hypertension) Hypertension type: essential hypertension Qualified Code(s): I10 - Essential (primary) hypertension
[2018-09-21] MEDS: Heparin Adult STANDARD Wt-Based Dextrose 5% 25,000 units/500 mL IV SCH (11:22)
[2018-09-21] MEDS: OXYCODONE HCL IR 5 MG TAB (IMMEDIATE RELEASE) PO PRN ×2 (12:45→18:44)
[2018-09-21 13:21] LABS: Partial Thromboplastin Ratio 1.9
[2018-09-21 13:27] LABS: Partial Thromboplastin Time 52.4 Seconds (21.0-31.0)
--- NOTE | 2018-09-21 14:49 | Hospitalist Progress Note ---
Date of Service September 21, 2018 Assessment & Plan (1) Hip fracture, left: - Presented with intertrochanteric fracture of left femur following mechanical fall at home. - Orthopedics consulted, status post intramedullary dhaval of the left femur 09/18 - Dilaudid and Oxycodone prn pain (avoid Morphine in setting of ESRD). - DVT ppx: will continue home Warfarin. Continue bridging with heparin gtt - PT/OT ordered. May be out of bed, weight-bear as tolerated left lower extremity with the assistance of a walker per ortho (2) ESRD (end stage renal disease) on dialysis: - Nephrology following, appreciate input. - Continue HD qMWF. - Continue Bumex 2 mg PO BID, PhosLo and Nephrocaps. - Renally dose all meds for GFR <10. - Monitor renal function, electrolytes daily; monitor daily weights and I/Os. (3) Atrial fibrillation: - Continue labetalol as prescribed. - INR was subtherapeutic today at 1.9 and was 1.9 again on repeat this afternoon-- continue 10 mg qMWF, 7.5 mg every other day. Continue heparin br idging as above - INR am (4) Anemia: - Chronic anemia, is currently at baseline. - Epogen with HD - Monitor CBC qAM. (5) Clostridium difficile infection: - Diagnosed with C. diff during recent hospitalization. - Completed course of PO abx. - Minimize abx exposure; Florastor daily. (6) Diabetes: - Most recent A1C was 6 in Mar 2018. - CCD as tolerated. - Monitor gluc checks ac/hs with SSI coverage. (7) HTN (hypertension): - Continue Labetalol and Bumex as prescribed. (8) Trigeminal neuralgia: - Continue Trileptal as prescribed. (9) Cirrhosis: - CT Abdomen performed during her last hospital admission revealed a slightly nodular contour of the liver. Density consistent with mild hepatic steatosis. - LFTs are within normal limits. - Will need outpatient work up. (10) DVT prophylaxis: - Continue Warfarin per orthopedic recs, heparin gtt to bridge Dispo: Med/surg s/p OR. PT/OT recommending SNF but patient refusing, would like HH instead. Review of Systems Review of Systems: All systems reviewed & are unremarkable except as noted in HPI & below Physical Exam Physical Exam: General: no distress Eyes: normal inspection, PERLL Respiratory: chest non tender, clear to auscultation, normal breath sounds, no respiratory distress, no accessory muscle use Cardiac: regular rate and rhythm, no rub or gallop, no murmur, no edema, no jvd GI/: active bowel sounds, no abd pain or tenderness, soft, non distended Extremities: normal range of motion, normal strength, non tender Neuro/Psych: alert and oriented x 3, normal mood and affect Skin: normal color, dry Results & Data Vital Signs (Past 12 Hours) Vital Signs Temp Pulse Pulse Resp BP BP Pulse Ox 09/21/18 14:26 74 116/52 L 09/21/18 14:00 75 112/52 L 09/21/18 13:40 74 111/53 L 09/21/18 13:37 75 109/53 L 09/21/18 13:20 37 C 69 09/21/18 06:56 36.9 C 67 18 122/68 95 (1) Diabetes Diabetes mellitus complication status: without complication Diabetes mellitus terminal gauger insulin use: without residential use Diabetes mellitus type: type 2 Qualified Code(s): E11.9 - Type 2 diabetes mellitus without complications (2) Anemia Anemia type: other cause Other causes of anemia: chronic disease, other Qualified Code(s): D63.8 - Anemia in other chronic diseases classified elsewhere (3) Atrial fibrillation Atrial fibrillation type: permanent Qualified Code(s): I48.2 - Chronic atrial fibrillation (4) Hip fracture, left Encounter type: initial encounter Fracture type: closed Qualified Code(s): S72.002A - Fracture of unspecified part of neck of left femur, initial encounter for closed fracture (5) HTN (hypertension) Hypertension type: essential hypertension Qualified Code(s): I10 - Essential (primary) hypertension
[2018-09-21 15:35] LABS: INR 1.9 (0.9-1.1); Prothrombin Time 18.2 Seconds (9.0-12.0)
[2018-09-21] MEDS: WARFARIN SOD 10 MG TAB PO SCH (18:46)
[2018-09-21] MEDS: CETIRIZINE HCL 10 MG TABLET PO SCH (21:22)
[2018-09-21] MEDS: DOCUSATE SODIUM/SENNA 50/8.6MG TAB PO SCH (21:22)
[2018-09-21] MEDS: SENNA 8.6 MG TAB PO SCH (21:22)
[2018-09-22 06:06] LABS: Basophils # (auto) 0.02 K/uL (0-0.2); Basophils % (auto) 0.5 %; Eosinophils # (auto) 0.16 K/uL (0-0.5); Eosinophils % (auto) 4.1 %; Hematocrit (blood only) 26.7 % (37-47); Hemoglobin 8.6 g/dL (12.0-16.0); Immature Granulocytes # (auto) 0.02 K/uL (0.00-0.02); Immature Granulocytes % (auto) 0.5 %; Lymphocytes # (auto) 0.84 K/uL (1.2-3.4); Lymphocytes % (auto) 21.3 %; Mean Corpuscular Hgb Conc 32.2 g/dL (32-36); Mean Corpuscular Volume 97.1 fL (80-100); Mean Platelet Volume 9.3 fL (7.4-10.4); Monocytes # (auto) 0.46 K/uL (0.11-0.59); Monocytes % (auto) 11.7 %; Neutrophils # (auto) 2.44 K/uL (1.4-6.5); Neutrophils % (auto) 61.9 %; Platelet Count 137 K/uL (130-400); RDW Coefficient of Variation 19.7 % (11.5-14.5); RDW Standard Deviation 68.7 fL (36.4-46.3); Red Blood Count 2.75 M/uL (4.2-5.4); White Blood Count 3.94 K/uL (4.8-10.8)
[2018-09-22 09:02] LABS: BUN Creatinine Ratio 5.2 (10-20); Calcium 8.8 mg/dl (8.5-10.1); Creatinine Clr Calc Pharmacy 16.6 ml/min; Est GFR (African American) 17.4; Potassium 4.2 mmol/L (3.5-5.1)
[2018-09-22] MEDS: SACCHAROMYCES BOULARDII 250 MG CAP PO SCH (09:21)
[2018-09-22] MEDS: CALCIUM ACETATE 667 MG CAP PO SCH (09:21)
[2018-09-22] MEDS: BUMETANIDE 1 MG TAB PO SCH (09:22)
[2018-09-22] MEDS: OXcarbazepine 150 MG TABLET PO SCH (09:22)
[2018-09-22] MEDS: PANTOprazole 40 MG TAB PO SCH (09:22)
[2018-09-22] MEDS: LABETALOL HCL 200 MG TAB PO SCH (09:23)
[2018-09-22] MEDS: INSULIN ASPART 100 UNITS/ML 3 ML PEN SC SCH (09:26)
[2018-09-22 09:34] LABS: INR 1.6 (0.9-1.1); Prothrombin Time 16.2 Seconds (9.0-12.0)
--- NOTE | 2018-09-22 10:30 | Nephrology Progress Note ---
Date of Service September 22, 2018 Assessment & Plan (1) ESRD (end stage renal disease) on dialysis: -- HD MWF -- Net 2 L UF yesterday -- BP acceptable -- Volume status appropriate -- Medications are appropriate for kidney function -- PO4 binder QAC and nephrocap daily -- Encourage nutrition (2) Anemia: -- Epogen 3000 units QHD -- Monitor H/H daily (3) Hip fracture, left: -- POD #4 -- Possible discharge home today (4) HTN (hypertension): Subjective No acute events overnight. Kalyani feels well this morning. Tolerted HD well yesterday without complications. Denies significant pain. No dyspnea. No fevers or chills. Appetite remains poor. Denies constipation. Review of Systems Review of Systems: All systems reviewed & are unremarkable except as noted in HPI & below Physical Exam Constitutional: well developed; not ill appearing and not edematous Eyes: no scleral abnormality and no corneal abnormality ENMT: Mouth: no oral mucosal abnormality and oral mucous membranes not dry Neck: normal visual inspection and trachea midline Respiratory: normal respiratory effort; no respiratory distress Auscultation: lungs clear to auscultation bilaterally Cardiovascular: Heart Sounds: normal S1, normal S2 and + murmur; no gallop and no cardiac rub Extremities: + AV fistula Gastrointestinal (Abdomen): Percussion/Palpation: abdomen soft; abdomen nontender Musculoskeletal: Extremities: no cyanosis and no clubbing Skin: + turgor decreased; no rashes Neurologic: Motor/Sensory: no tremor and no asterixis Psychiatric: Affect: euthymic affect Insight: good insight Results & Data Vital Signs (Past 12 Hours) Vital Signs Temp Pulse Pulse Resp BP Pulse Ox 09/22/18 07:54 36.8 C 80 18 147/78 H 97 09/21/18 23:06 37.1 C 89 16 115/51 L 98 Laboratory Results Laboratory Results - last 24 hr 09/21/18 09/21/18 09/21/18 11:59 12:45 12:45 WBC RBC Hgb Hct MCV MCH MCHC RDW Std Deviation RDW Coeff of Alejandra Plt Count MPV Immature Gran % (Auto) Neut % (Auto) Lymph % (Auto) [place] % (Auto) Eos % (Auto) Baso % (Auto) Immature Gran # (Auto) Neut # (Auto) Lymph # (Auto) [place] # (Auto) Eos # (Auto) Baso # (Auto) PT 18.2 H INR 1.9 H APTT 52.4 H* PTT Ratio 1.9 Sodium Potassium Chloride Carbon Dioxide Anion Gap BUN Creatinine Est Cr Clr Drug Dosing Est GFR ( Amer) Est GFR (Non-Af Amer) BUN/Creatinine Ratio Glucose POC Glucose 175 H Calcium 09/21/18 09/21/18 09/22/18 18:11 21:18 05:10 WBC 3.94 L RBC 2.75 L Hgb 8.6 L Hct 26.7 L MCV 97.1 MCH 31.3 MCHC 32.2 RDW Std Deviation 68.7 H RDW Coeff of Alejandra 19.7 H Plt Count 137 MPV 9.3 Immature Gran % (Auto) 0.5 Neut % (Auto) 61.9 Lymph % (Auto) 21.3 [place] % (Auto) 11.7 Eos % (Auto) 4.1 Baso % (Auto) 0.5 Immature Gran # (Auto) 0.02 Neut # (Auto) 2.44 Lymph # (Auto) 0.84 L [place] # (Auto) 0.46 Eos # (Auto) 0.16 Baso # (Auto) 0.02 PT INR APTT PTT Ratio Sodium Potassium Chloride Carbon Dioxide Anion Gap BUN Creatinine Est Cr Clr Drug Dosing Est GFR ( Amer) Est GFR (Non-Af Amer) BUN/Creatinine Ratio Glucose POC Glucose 145 H 169 H Calcium 09/22/18 09/22/18 09/22/18 08:17 08:23 08:24 WBC RBC Hgb Hct MCV MCH MCHC RDW Std Deviation RDW Coeff of Alejandra Plt Count MPV Immature Gran % (Auto) Neut % (Auto) Lymph % (Auto) [place] % (Auto) Eos % (Auto) Baso % (Auto) Immature Gran # (Auto) Neut # (Auto) Lymph # (Auto) [place] # (Auto) Eos # (Auto) Baso # (Auto) PT Cancelled INR Cancelled APTT PTT Ratio Sodium 135 L Potassium 4.2 Chloride 99 Carbon Dioxide 30 Anion Gap 6.0 BUN 15 Creatinine 2.93 H D Est Cr Clr Drug Dosing 16.6 Est GFR ( Amer) 17.4 Est GFR (Non-Af Amer) 15.0 BUN/Creatinine Ratio 5.2 L Glucose 128 H POC Glucose 128 H Calcium 8.8 09/22/18 09:13 WBC RBC Hgb Hct MCV MCH MCHC RDW Std Deviation RDW Coeff of Alejandra Plt Count MPV Immature Gran % (Auto) Neut % (Auto) Lymph % (Auto) [place] % (Auto) Eos % (Auto) Baso % (Auto) Immature Gran # (Auto) Neut # (Auto) Lymph # (Auto) [place] # (Auto) Eos # (Auto) Baso # (Auto) PT 16.2 H INR 1.6 H APTT PTT Ratio Sodium Potassium Chloride Carbon Dioxide Anion Gap BUN Creatinine Est Cr Clr Drug Dosing Est GFR ( Amer) Est GFR (Non-Af Amer) BUN/Creatinine Ratio Glucose POC Glucose Calcium (1) Anemia Anemia type: other cause Other causes of anemia: chronic disease, other Qualified Code(s): D63.8 - Anemia in other chronic diseases classified elsewhere (2) Hip fracture, left Encounter type: initial encounter Fracture type: closed Qualified Code(s): S72.002A - Fracture of unspecified part of neck of left femur, initial encounter for closed fracture (3) HTN (hypertension) Hypertension type: essential hypertension Qualified Code(s): I10 - Essential (primary) hypertension
--- NOTE | 2018-09-22 11:29 | Discharge Summary ---
Date of Service September 22, 2018 Admission HPI Per Admitting Provider Kalyani Diaz is a pleasant 73yo C female with multiple medical comorbidities, notably AF on Coumadin anticoagulation, ESRD on HD, diet controlled DM presenting with acute fracture of left hip. Patient fell off the commode last evening around 18:30. She was trying to get up and missed her wheelchair. She fell directly onto her left hip. Her family helped her up and she was able to stand. Unable to ambulate. Patient recalls the fall. No LOC or head trauma. No CP/palpitation/dizziness preceding or following the fall. No additional complaints at this time. Pain presently fairly well controlled after Fentanyl. Patient was recently admitted on 07 July 2018 for acute cholecystitis and ascending cholangitis. She had an ERCP with biliary sphincterotomy and stent placement performed on 07/08/18 followed by a laparoscopic cholecystectomy on 07/16/18. She was treated with Zosyn and Cipro for total of 14 days. She was discharged home in stable condition on 07/19/18. The surgery was well tolerated. No complications identified. She was transfused 1 u PRBCs for post-operative anemia, Hg of 7. Patient returned to the hospital on 08/30/18 for stent removal. ER Course: Fentanyl 50mcg, Promethazine 12.5mg Principal Diagnosis Hip Fracture Discharge Exam Constitutional WD/WN, vitals as above Respiratory normal respiratory effort, lungs clear to auscultation Cardiovascular RRR, no murmur, no edema Gastrointestinal (Abdomen) normal bowel sounds, soft, nontender, no hepatosplenomegaly Musculoskeletal generalized weakness Skin no rashes, warm and dry Neurologic moves all extremities and awake Psychiatric A+Ox3, euthymic affect Discharge Data Allergies Allergy/AdvReac Type Severity Reaction Status Date / Time ANGEL Inhibitors Allergy Mild Cough Verified 09/17/18 22:51 doxycycline Allergy Mild upset Verified 09/17/18 22:51 stomach simvastatin Allergy Mild "did not Verified 09/17/18 22:51 feel well while taking" metformin Allergy Unknown does not Verified 09/17/18 22:51 remember pioglitazone Allergy Unknown ? NOT SURE Verified 09/17/18 22:51 rosiglitazone Allergy Unknown NOT SURE Verified 09/17/18 22:51 Xyvpufq-Ved-Ihn Reductase AdvReac Intermediate LEGS HURT Verified 09/17/18 22:51 Inhibitor Cipro AdvReac Mild UPSET Verified 04/06/17 11:43 STOMACH ciprofloxacin AdvReac Mild UPSET Verified 09/17/18 22:51 STOMACH levofloxacin AdvReac Mild ?NAUSEA Verified 09/17/18 22:51 CAT GUT SUTURES Allergy Intermediate SLOW Uncoded 09/17/18 22:51 HEALING,INFLAMED TISSUE Consultations 09/18/18 00:49 ED Decision to Admit Stat 09/18/18 03:13 Consult Case Management - Discharge Planning Routine Consult Nephrology Routine Consult Orthopedic Surgery Routine 09/18/18 14:48 Consult Case Management - Discharge Planning Routine Procedures Performed Operation Date: 09/18/18 13:00 Actual Procedures p Intramedullary Nehemias Left Femur(Left) - Noe Angeels MD Ordered Studies 09/17/18 21:50 CT head/brain wo con Stat 09/17/18 22:51 CT hip LT wo con Stat 09/18/18 10:30 FL femur LT 2V Routine FL fluoroscopy <1hr Routine Hospital Course (1) Hip fracture, left: - Presented with intertrochanteric fracture of left femur following mechanical fall at home. - Orthopedics consulted, status post intramedullary nehemias of the left femur 09/18 - Dilaudid and Oxycodone prn pain (avoid Morphine in setting of ESRD). - DVT ppx: will continue home Warfarin. Continue bridging with heparin gtt - PT/OT ordered. May be out of bed, weight-bear as tolerated left lower extremity with the assistance of a walker per ortho (2) ESRD (end stage renal disease) on dialysis: - Nephrology following, appreciate input. - Continue HD qMWF. - Continue Bumex 2 mg PO BID, PhosLo and Nephrocaps. - Renally dosed all meds for GFR <10. (3) Atrial fibrillation: - Continue labetalol as prescribed. - INR was subtherapeutic again today at 1.6. Coumadin was resumed five days ago at patient's normal dosing of 10 mg qMWF and 7.5 mg every other day. Discontinued heparin bridging as patient reports CVA in her problem list is inaccurate and she has never had a stroke. She should take 10 mg of Coumadin today instead of her normal 7.5 mg and then resume her normal dosing tomorrow with INR check Wednesday (4) Anemia: - Chronic anemia, is currently at baseline which is around 8.5- 10 - Epogen with HD (5) Clostridium difficile infection: - Diagnosed with C. diff during recent hospitalization. - Completed course of PO abx. - Minimize abx exposure; continue probiotic (6) Diabetes: - Most recent A1C was 6 in Mar 2018. - CCD as tolerated. - Monitor gluc checks ac/hs with SSI coverage. (7) HTN (hypertension): - Continue Labetalol and Bumex as prescribed. (8) Trigeminal neuralgia: - Continue Trileptal as prescribed. (9) Cirrhosis: - CT Abdomen performed during her last hospital admission revealed a slightly nodular contour of the liver. Density consistent with mild hepatic steatosis. - LFTs are within normal limits. - Will need outpatient work up. (10) DVT prophylaxis: - Continue Warfarin per orthopedic recs Dispo: PT/OT recommending SNF but patient refusing, would like instead. Total Time Total Time Spent Total Time Spent (In Minutes): greater than 30 minutes Discharge Plan Discharge Items Patient Disposition: Home - Home Health Services Reason For Visit: LEFT HIP FRACTURE Discharge Diagnosis: Left hip fracture Discharge Goals: Decrease discomfort and Improve function Activity: Per 'Additional Instructions' section Non-emergency contact: Surgeon Call non-emergency contact if: your pain is not controlled, your pain is unusual for you, your pain is concerning for you, you have a fever, your temperature is above 101, your wound has increased redness, your wound has increased drainage and your wound pain has increased Follow-up/Referrals: Jc Espino MD [Primary Care Provider] - 10/03/18 2:30 pm (Please, follow up at Dr. Espino's office with his acquisitions assistant, Estela Berumen PA-C, on WednesdayOctober 03 at 2:30 pm. *If you need to change this appointment, call the office at [phone].) Neo Angeles MD [Surgeon] - 10/03/18 11:45 am Diet: Dialysis Renal Other Ambulatory Orders: Prothrombin Time INR (Routine) Timeframe: 2 Days Location: Determined by Patient Ordered By: Zohra Ortega Provider Instructions: Please follow up with your primary care provider next week. You should take 10 mg of Coumadin today and then resume your normal dosing tomorrow. You should have your INR checked on Wednesday. Results will go to your primary care provider Weight bearing as tolerated left leg Use walker to assist with ambulation Allowed for full range of motion right lower extremity as tolerated Strengthening as tolerated right lower extremity Laci stockings bilateral lower extremities - on during the day, off at night Keep dressings on left hip at all times. Okay to bathe starting on 09/22/18. Do not scrub or soak incisions. Do not submerge wounds. Pat incisions dry, recover with light dressing Ice to left hip/thigh as needed for pain/swelling. Elevate left leg above heart to relieve pain/swelling. Prescriptions: Continued bumetanide 2 mg tablet 2 mg PO BID RF: 0 cetirizine [Zyrtec] 10 mg Tablet 10 mg PO DAILY RF: 0 hydrocodone-acetaminophen [Veneta] 10-325 mg tablet 1 tab PO TID PRN (Reason: Pain) RF: 0 omeprazole 40 mg capsule,delayed release(DR/EC) 40 mg PO DAILY RF: 0 promethazine 25 mg tablet 25 mg PO Q6 PRN (Reason: Nausea) RF: 0 cranberry 400 mg Capsule 4,200 mg PO BID RF: 0 calcium acetate 667 mg capsule 2 tabs PO QAM RF: 0 calcium acetate 667 mg capsule 3 tab PO UD RF: 0 biotin 1 mg Tablet 1 mg PO BID RF: 0 Probiotic 3 billion cell Capsule PO DAILY RF: 0 oxcarbazepine [Trileptal] 300 mg Tablet 300 mg PO BID RF: 0 warfarin [Coumadin] 7.5 mg Tablet 1 tab PO 3XWK RF: 0 labetalol 200 mg Tablet 200 mg PO UD RF: 0 Changed warfarin [Coumadin] 10 mg Tablet 10 mg PO 4XWK Qty: 0 RF: 0 Stand-Alone Forms: [facility] Discharge Orders: Discharge Order (Routine); Ordered 09/22/18 Ordered By: Zohra Champion Admission Data Admit Date/Time: 09/18/18 02:06 Attending Provider: Renato Werner Admit Provider: Linsey Seymour Primary Care Provider: Jc Espino Other Providers: Tin Maxwell Wayne J ; Linsey Seymour ; José Whitley Service: Surgical Services
== END 2018-09-22 14:35 | disposition home health service (06) | DRG 480 ==
LOC: ED 19:28 → 3E 09-18 02:06 → SUATTDRO 09-18 02:06 → 3E 09-18 02:50

== ENCOUNTER 2019-04-09 01:13 | Observation (INO) ==
[2019-04-09 01:42] LABS: Basophils # (auto) 0.01 K/uL (0-0.2); Basophils % (auto) 0.3 %; Eosinophils # (auto) 0.06 K/uL (0-0.5); Eosinophils % (auto) 1.8 %; Hematocrit (blood only) 36.4 % (37-47); Hemoglobin 11.7 g/dL (12.0-16.0); Immature Granulocytes # (auto) 0.01 K/uL (0.00-0.02); Immature Granulocytes % (auto) 0.3 %; Lymphocytes # (auto) 0.81 K/uL (1.2-3.4); Lymphocytes % (auto) 23.8 %; Mean Corpuscular Hemoglobin 32.8 pg (25-34); Mean Corpuscular Hgb Conc 32.1 g/dL (32-36); Mean Platelet Volume 9.4 fL (7.4-10.4); Monocytes # (auto) 0.32 K/uL (0.11-0.59); Monocytes % (auto) 9.4 %; Neutrophils # (auto) 2.19 K/uL (1.4-6.5); Neutrophils % (auto) 64.4 %; Platelet Count 125 K/uL (130-400); RDW Coefficient of Variation 15.9 % (11.5-14.5); RDW Standard Deviation 58.9 fL (36.4-46.3); Red Blood Count 3.57 M/uL (4.2-5.4)
[2019-04-09] MEDS ORDERED: SODIUM CHLORIDE 0.9% 1000ML 1,000 ML IV SCH (01:45)
[2019-04-09 02:07] LABS: Albumin Level 3.5 gm/dl (3.4-5.0); BUN Creatinine Ratio 5.2 (10-20); Calcium 8.8 mg/dl (8.5-10.1); Creatinine Clr Calc Pharmacy 11.7 ml/min; Est GFR (African American) 11.9; Est GFR (Non-African American) 10.3; Potassium 4.6 mmol/L (3.5-5.1)
[2019-04-09 02:18] LABS: Albumin Globulin Ratio 0.9 (0.9-2); Bilirubin,Total 0.4 mg/dl (0.2-1); INR 1.4 (0.9-1.1); Partial Thromboplastin Ratio 1.2; Partial Thromboplastin Time 32.8 Seconds (21.0-31.0); Prothrombin Time 13.9 Seconds (9.0-12.0); Thyroid Stimulating Hormone 2.18 uIu/ml (0.300-4.500); Total Protein 7.5 gm/dl (6.4-8.2)
[2019-04-09 02:25] LABS: Acetaminophen < 2 ug/ml (10-30)
[2019-04-09 02:26] LABS: Salicylate < 1.7 mg/dl (2.8-20)
--- NOTE | 2019-04-09 03:58 | History & Physical Report ---
Date of Service April 09, 2019 Assessment & Plan (1) Anticholinergic drug overdose: The patient will be admitted to telemetry for serial cardiac enzymes, serial EKG's, and cardiac rhythm monitoring. Present on Admission?: Yes (2) Disc degeneration, lumbar: Hold narcotic pain medications due to potential additive effect with slow down GI tract Present on Admission?: Yes (3) Gastroesophageal reflux disease: Continue omeprazole 40 mg p.o. daily or substitute Present on Admission?: Yes (4) Vitamin D deficiency: Continue supplement daily Present on Admission?: Yes (5) Obstructive sleep apnea: Verify with patient if she wears CPAP, and will prescribe if needed Present on Admission?: Yes (6) ESRD (end stage renal disease) on dialysis: Consult nephrology if needed, however, patient gets hemodialysis on Wednesday, Wednesday and Wednesday. Follows with Dr. José Whitley Present on Admission?: Yes (7) Atrial fibrillation: Atrial fibrillation/hypertension- Hold bumetanide. Verify dosing of labetalol. INR is subtherapeutic at 1.4, however patient's range tends to be 1.2-1.9. Continue warfarin. Present on Admission?: Yes (8) HTN (hypertension): See above Present on Admission?: Yes (9) Diabetes: On no active treatment. Glucose admission 116 Unless glucose becomes elevated on routine a.m. labs, will hold on Accu-Cheks Present on Admission?: Yes (10) Seizure disorder: Continue oxcarbazepine and lamotrigine. Present on Admission?: Yes History of Present Illness Chief Complaint: The patient presents to the emergency department after an accidental overdose ingestion of 24 Lomotil pills. Primary Care Provider: Roderick Espino MD The patient is a 74-year-old female with a past medical history including lumbar degenerative disc disease, GERD, gout, hyperlipidemia, vitamin D deficiency, bladder B12 deficiency, obstructive sleep apnea, morbid obesity, hiatal hernia, diabetic nephropathy, C. difficile colitis, cirrhosis, ESRD on HD, anemia chronic disease, hyperlipidemia, atrial fibrillation and CHF. She presents to the emergency department after an accidental overdose ingestion of 24 Lomotil pills that occurred prior to arrival. She typically puts all of her medications for the day in old medicine bottles, and because she had trouble opening a Lomotil bottle she put a brand-new bottle into a medicine bottle as well. when she took her pills tonight, since she typically just throws the bottle up to her mouth, inadvertently ingested 24 Lomotil pills which were adjacent to her usual pills. She has no complaints at this time. Allergies Allergy/AdvReac Type Severity Reaction Status Date / Time ANGEL Inhibitors Allergy Mild Cough Verified 04/09/19 02:40 doxycycline Allergy Mild upset Verified 04/09/19 02:40 stomach simvastatin Allergy Mild "did not Verified 04/09/19 02:40 feel well while taking" metformin Allergy Unknown does not Verified 04/09/19 02:40 remember pioglitazone Allergy Unknown ? NOT SURE Verified 04/09/19 02:40 rosiglitazone Allergy Unknown NOT SURE Verified 04/09/19 02:40 [id number]-[id number]-Tjb Reductase AdvReac Intermediate LEGS HURT Verified 04/09/19 02:40 Inhibitor Cipro AdvReac Mild UPSET Verified 04/06/17 11:43 STOMACH ciprofloxacin AdvReac Mild UPSET Verified 04/09/19 02:40 STOMACH levofloxacin AdvReac Mild ?NAUSEA Verified 04/09/19 02:40 escitalopram AdvReac Unknown Verified 04/09/19 02:40 homatropine AdvReac Unknown Verified 04/09/19 02:40 [From Hycodan (with homatropin)] oxycodone AdvReac Unknown Verified 04/09/19 02:40 CAT GUT SUTURES Allergy Intermediate SLOW Uncoded 04/09/19 02:40 HEALING,INFLAMED TISSUE Home Medications Home Medications Medication Instructions Recorded Confirmed Type bumetanide 2 mg PO BID 07/07/18 04/09/19 History calcium acetate 2 tabs PO BIDM 07/07/18 04/09/19 History cetirizine [Zyrtec] 10 mg PO DAILY 07/07/18 04/09/19 History labetalol 200 mg PO UD 08/24/18 04/09/19 History omeprazole 40 mg capsule,delayed 40 mg PO DAILY #90 cap 11/15/18 04/09/19 Rx release vit B,C-iron [id number] ox 1 tab PO DAILY 12/19/18 04/09/19 History [ProRenal] biotin 1 mg capsule 1 mg PO BID cap 02/01/19 04/09/19 History cranberry 400 mg capsule 800 mg PO BID 02/01/19 04/09/19 History lactobacillus combination no.4 3 3,000 mmu cells PO DAILY cap 02/01/19 04/09/19 History billion cell capsule cholestyramine (with sugar) 4 gram 4 gm PO BID #378 gm 02/09/19 04/09/19 Rx oral powder oxcarbazepine 600 mg tablet 600 mg PO .COMPLEX 30 Days #60 tab 02/16/19 04/09/19 Rx lamotrigine 100 mg tablet 100 mg PO BID 30 Days #60 tab 03/15/19 04/09/19 Rx hydrocodone 10 mg-acetaminophen 1 tab PO Q6H PRN #120 tab 03/28/19 04/09/19 Rx 325 mg tablet warfarin 10 mg PO DAILY 04/09/19 04/09/19 History Past Med/Surg History Social History Preferred Language: Sinhala Communication Ability: Effective Visual Impairment: No 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 Beliefs That Will Affect Care: None marital status: Current Living Situation: Spouse current occupational status: retired Feels Safe at Home: Yes Smoking Status: Never smoker Second Hand Exposure: No ; Hx Alcohol Use: No Hx Substance Use: No caffeine: Yes Seatbelt Use: always Review of Systems Review of Systems: The patient denies chest pain, palpitations, shortness of breath, dyspnea on exertion, cough, lower extremity swelling, sore throat, fevers, chills, sweats, weight change, fatigue, nausea, vomiting, diarrhea , constipation, abdominal pain, pelvic pain, blood in urine or stool, dysuria, urinary frequency or urgency, lightheadedness, dizziness, headache, memory loss, loss of consciousness, rash, abnormal bruising or bleeding, imbalance, focal or generalized weakness, numbness or tingling in arms or legs, generalized arthralgias or myalgias, back or neck pain, or night sweats. The review of systems is otherwise negative other than for that already noted above, and at least 10 systems have been reviewed. Physical Exam Physical Exam: The patient is awake, alert and oriented 3, obese, normocephalic and atraumatic, lying in bed and in no acute distress. HEENT--PERRL, EOMI, mucous membranes and oropharynx dry. Neck--No JVD. No bruits. Thyroid normal, trachea midline, no adenopathy. Heart--normal S1 and S2. No murmurs, rubs or gallops. Lungs--clear bilaterally, no respiratory distress, no accessory muscle use. Abdomen--normal bowel sounds and soft. Nontender. Nondistended. Obese. Extremities--no cyanosis or clubbing. No edema. Dermatologic--normal skin turgor, normal color, no abnormal lymph nodes, no rash. Neurologic--cranial nerves II through XII grossly intact. Rheumatologic--normal range of motion. Psychiatric--normal affect. Results & Data Vital Signs (Past 12 Hours) Vital Signs Temp Pulse Resp BP Pulse Ox 04/09/19 01:30 EST 98.1 F 80 18 123/96 92 Laboratory Results Laboratory Results WBC 3.40 K/uL (4.8-10.8) L 04/09/19 01:30 EST RBC 3.57 M/uL (4.2-5.4) L 04/09/19 01:30 EST Hgb 11.7 g/dL (12.0-16.0) L 04/09/19 01:30 EST Hct 36.4 % (37-47) L 04/09/19 01:30 EST MCV 102.0 fL (80-100) H 04/09/19 01:30 EST MCH 32.8 pg (25-34) 04/09/19 01:30 EST MCHC 32.1 g/dL (32-36) 04/09/19 01:30 EST RDW Std Deviation 58.9 fL (36.4-46.3) H 04/09/19 01:30 EST RDW Coeff of Alejandra 15.9 % (11.5-14.5) H 04/09/19 01:30 EST Plt Count 125 K/uL (130-400) L 04/09/19 01:30 EST MPV 9.4 fL (7.4-10.4) 04/09/19 01:30 EST Immature Gran % (Auto) 0.3 % 04/09/19 01:30 EST Neut % (Auto) 64.4 % 04/09/19 01:30 EST Lymph % (Auto) 23.8 % 04/09/19 01:30 EST [place] % (Auto) 9.4 % 04/09/19 01:30 EST Eos % (Auto) 1.8 % 04/09/19 01:30 EST Baso % (Auto) 0.3 % 04/09/19 01:30 EST Immature Gran # (Auto) 0.01 K/uL (0.00-0.02) 04/09/19 01:30 EST Neut # (Auto) 2.19 K/uL (1.4-6.5) 04/09/19 01:30 EST Lymph # (Auto) 0.81 K/uL (1.2-3.4) L 04/09/19 01:30 EST [place] # (Auto) 0.32 K/uL (0.11-0.59) 04/09/19 01:30 EST Eos # (Auto) 0.06 K/uL (0-0.5) 04/09/19 01:30 EST Baso # (Auto) 0.01 K/uL (0-0.2) 04/09/19 01:30 EST PT 13.9 Seconds (9.0-12.0) H 04/09/19 01:30 EST INR 1.4 (0.9-1.1) H 04/09/19 01:30 EST APTT 32.8 Seconds (21.0-31.0) H 04/09/19 01:30 EST PTT Ratio 1.2 04/09/19 01:30 EST Sodium 135 mmol/L (136-145) L 04/09/19 01:30 EST Potassium 4.6 mmol/L (3.5-5.1) 04/09/19 01:30 EST Chloride 100 mmol/L (98-107) 04/09/19 01:30 EST Carbon Dioxide 27 mmol/L (21-32) 04/09/19 01:30 EST Anion Gap 8.0 (3-11) 04/09/19 01:30 EST BUN 21 mg/dl (7-18) H 04/09/19 01:30 EST Creatinine 3.98 mg/dl (0.6-1.2) H 04/09/19 01:30 EST Est Cr Clr Drug Dosing 11.7 ml/min 04/09/19 01:30 EST Est GFR ( Amer) 11.9 04/09/19 01:30 EST Est GFR (Non-Af Amer) 10.3 04/09/19 01:30 EST BUN/Creatinine Ratio 5.2 (10-20) L 04/09/19 01:30 EST Glucose 116 mg/dl (70-99) H 04/09/19 01:30 EST Calcium 8.8 mg/dl (8.5-10.1) 04/09/19 01:30 EST Total Bilirubin 0.4 mg/dl (0.2-1) 04/09/19 01:30 EST AST 18 U/L (15-37) 04/09/19 01:30 EST ALT 18 U/L (12-78) 04/09/19 01:30 EST Alkaline Phosphatase 114 U/L (45-117) 04/09/19 01:30 EST Total Protein 7.5 gm/dl (6.4-8.2) 04/09/19 01:30 EST Albumin 3.5 gm/dl (3.4-5.0) 04/09/19 01:30 EST Globulin 4.0 gm/dl (2.5-4.0) 04/09/19 01:30 EST Albumin/Globulin Ratio 0.9 (0.9-2) 04/09/19 01:30 EST TSH 2.180 uIu/ml (0.300-4.500) 04/09/19 01:30 EST Salicylates < 1.7 mg/dl (2.8-20) L 04/09/19 01:30 EST Acetaminophen < 2 ug/ml (10-30) L 04/09/19 01:30 EST Ethyl Alcohol mg/dL < 3.0 mg/dl (0-3) 04/09/19 01:39 EST Code Status & VTE Plan Code Status Full code VTE Prophylaxis Plan VTE Prophylaxis will be ordered: Yes PG Care Time/CCT Total # of Minutes Spent Total Time Spent with Patient: Total time spent is greater than 50% in coordination of care (as documented) at patient's floor/unit and/or counseling patient: (1) Atrial fibrillation Atrial fibrillation type: permanent Qualified Code(s): I48.2 - Chronic atrial fibrillation (2) HTN (hypertension) Hypertension type: essential hypertension Qualified Code(s): I10 - Essential (primary) hypertension (3) Diabetes Diabetes mellitus long term care pharmacist insulin use: without long term care pharmacist use Diabetes mellitus complication detail: with chronic kidney disease Chronic kidney disease stage: on chronic dialysis
[2019-04-09] MEDS ORDERED: ACETAMINOPHEN 325 MG TAB PO PRN (05:37)
[2019-04-09] MEDS ORDERED: ONDANSETRON INJ 2 MG/ML 2 ML VIAL IV PRN (05:37)
[2019-04-09] MEDS ORDERED: POLYETHYLENE (MIRALAX) 17 GM PACK PO PRN (05:37)
--- NOTE | 2019-04-09 06:56 | Emergency Department Note ---
Entered by John Velarde acting as a scribe for ED Provider Note Name: Kalyani Diaz Age: 74 Arrives Via: EMS Informant: Patient CC: Overdose HPI: A female arrives for evaluation of an overdose occurring [employer]. The patient states she emptied her prescription on her bedside counter and went to sleep. She notes she woke up and grabbed her medication and accidently took the whole bottle. She states there were 24 pills in the bottle. She notes the pills were anti-diarrheal medications. She states she was not trying to hurt herself. She notes she took the pills at 0110. She states she does not have any symptoms right now. She denies having any breathing problems or drinking alcohol. ROS: See above HPI for pertinent positives & negatives. A total of 10 systems reviewed and were otherwise negative. Past Medical History: ESRD, sleep apnea, hyperlipidemia, anemia, GERD, spinal stenosis, scoliosis, Gout, cirrhosis of liver, osteoporosis, HTN, proteinuria, diverticulosis, erosive arthritis, hiatal hernia, lymphedema Past Surgical History: ERCP, knee surgery, tubal ligation, cholecystectomy, EGD, cataract surgery, carpal tunnel surgery, Family History: Family history non-contributory Social History: Speaks Maori. Home Medications: biotin, bumetanide, calcium acetate, cetirizine, cholestyramine, hydrocodone, labetalol, lactobacillus, lamotrigine, omeprazole, oxcarbazepine, warfarin, Allergies ANGEL inhibitors, doxycycline, simvastatin, metformin, pioglitazone, rosiglitazone, [id number] reductase inhibitor, Cipro, ciprofloxacin, levofloxacin, escitalopram, homatropine, oxycodone, Physical: Vitals: BP 123/96, P 80, R 18, O2 92%, Temp 98.1 Exam: GENERAL: Patient is dehydrated and mildly anxious appearing and in no acute distress. EYES: No scleral icterus, unremarkable pupils. ENT: Mucous membranes are dry, no nasal congestion. NECK: No masses appreciated, no meningismus, trachea is midline. RESPIRATORY: No dyspnea. Clear to auscultation and equal bilaterally. No wheeze, no rhonchi. CARDIOVASCULAR: Regular rate and rhythm. No murmurs, rubs, gallops appreciated. GASTROINTESTINAL: Abdomen soft, non-tender, no peritonitis. Bowel sounds positive. No masses appreciated. BACK: No midline tenderness, no CVA tenderness EXTREMITIES: Normal motion all extremities, no cyanosis, no edema. NEUROLOGIC: Alert and oriented, no acute motor or sensory deficits, no focal weakness, cranial nerves grossly intact. SKIN: No rash, no jaundice, no diaphoresis. ED Course: Prior Medical Record, Triage/Nursing Notes, Medications, Allergies reviewed by Me Vital Signs: reviewed and remarkable for mild hypoxia Labs: Reviewed and remarkable for wnl Interventions: saline lock, nss infusion IV EKG: Per My Interpretation: Indication Overdose: Sinus 71 bpm with 1st av block and qtc 456. No ectopy no ischemia. Similar to previous EKG. Blood pressure: Normal. No Referral necessary Course: 0133: The patient was evaluated in room B3B, and a complete history and physical examination were performed. 020: I called the poison center. They recommended observation for symptoms of overdose, in particular respiratory depression. 0225: I reevaluated the patient. She is feeling better. 0229: I discussed the patient's case with Dr. Martinez - [facility] Hospitalist. He will evaluate the patient for further management Disposition: Hospitalization Differentials: Differential: Suicide Attempt, Mood Disorder, Poisoning, Medication OD, Narcotic OD, Tylenol OD, Salicylated OD, Prolonged QTc, Metabolic/Electrolyte imbalance, Trauma, Rhabdo, Infectious, amongst other pathologies entertained. Medical Decision Makin yr old female arrives following what she makes clear is accidental overdose. agrees this was accidental. No history of suicide attempts. She is well appearing though a bit dehydrated by exam and may be a bit anticholinergic but without significant symptoms would not start active treating with normal vitals. She was given IV fluids and monitored. Initial work-up OK. Given amount of overdose reviewed with hospitalist who will bring in for further evaluation and management. Impression: Accidental Overdose The scribe's documentation has been prepared under my direction and personally reviewed by me in its entirety. I confirm that the note above accurately reflects all work, treatment, procedures, and medical decision making performed by me. Kennedy Min MD Impression & Plan Accidental overdose Past Med/Surg History Medical History Disc degeneration, lumbar (Chronic) Gastroesophageal reflux disease (Chronic) Gout (Chronic) Hyperlipidemia (Chronic) Vitamin D deficiency (Chronic) Vitamin B12 deficiency (Chronic) Osteoporosis (Chronic) Obstructive sleep apnea (Chronic) Nocturnal hypoxia (Chronic) Morbid obesity (Chronic) Lymphedema (Chronic) Internal hemorrhoids (Acute) Hiatal hernia (Chronic) Erosive (osteo)arthritis (Chronic) Diverticulosis (Chronic) Diabetic nephropathy C. difficile colitis (Resolved) Asymptomatic bilateral carotid artery stenosis (Chronic) Cirrhosis (Chronic) Hip fracture, left (Resolved) ESRD (end stage renal disease) on dialysis (Chronic) Hypomagnesemia (Acute) Anemia (Acute) Hypoalbuminemia Hypokalemia due to loss of potassium (Acute) Proteinuria (Chronic) Tremor (Acute) Left ventricular hypertrophy Cholangitis Hyperlipidemia DVT prophylaxis Encounter for pre-operative examination Encounter for pre-operative examination Spinal stenosis (Chronic) Atrial fibrillation Diabetes (Chronic) HTN (hypertension) (Chronic) Carpal tunnel syndrome (Chronic) Trigeminal neuralgia (Chronic) CHF exacerbation (Resolved) CKD (chronic kidney disease) stage 3, GFR 30-59 ml/min (Resolved) DIALYSIS M/W/F [place] Clostridium difficile infection (Resolved) 2016 Anemia Cirrhosis of liver ESRD (end stage renal disease) receives HD q M/W/F GERD (gastroesophageal reflux disease) Gout Hyperlipidemia Scoliosis Sleep apnea NO DEVICE Spinal stenosis Social History Preferred Language: Maori Communication Ability: Effective Visual Impairment: No Limitations Pedicab Driver Required: No Beliefs That Will Affect Care: None marital status: Current Living Situation: Spouse current occupational status: retired Feels Safe at Home: Yes Smoking Status: Never smoker Second Hand Exposure: No ; Hx Alcohol Use: No Hx Substance Use: No caffeine: Yes Seatbelt Use: always Results & Data Vital Signs Vital Signs - 24 hr 04/09/19 01:30 EST 04/09/19 02:54 04/09/19 03:00 Temperature 36.7 C Temperature Source Oral Sepsis Recent Fever Within 48 Hours No Sepsis Action Taken by Nursing No Action Required Pulse Rate 80 65 64 Pulse Rate from SpO2 Sensor 64 64 Pulse Rhythm Regular Pulse Strength Normal Respiratory Rate 18 16 18 Respiratory Effort / Characteristics Non-Labored Spontaneous Respiratory Depth Normal Blood Pressure 123/96 133/90 142/86 H Blood Pressure Mean 105 104 104 Blood Pressure Position Lying Pulse Oximetry 92 95 93 Oxygen Delivery Method Room Air Room Air Room Air 04/09/19 03:30 Temperature Temperature Source Sepsis Recent Fever Within 48 Hours Sepsis Action Taken by Nursing Pulse Rate 62 Pulse Rate from SpO2 Sensor 62 Pulse Rhythm Pulse Strength Respiratory Rate 16 Respiratory Effort / Characteristics Respiratory Depth Blood Pressure 119/59 L Blood Pressure Mean 79 Blood Pressure Position Pulse Oximetry 90 Oxygen Delivery Method Room Air Laboratory Data Result diagrams: 04/09/19 01:30 EST 04/09/19 01:30 EST Lab Results 04/09/19 04/09/19 04/09/19 Range/Units 01:30 EST 01:30 EST 01:30 EST WBC 3.40 L (4.8-10.8) K/uL RBC 3.57 L (4.2-5.4) M/uL Hgb 11.7 L (12.0-16.0) g/dL Hct 36.4 L (37-47) % MCV 102.0 H (80-100) fL MCH 32.8 (25-34) pg MCHC 32.1 (32-36) g/dL RDW Std Deviation 58.9 H (36.4-46.3) fL RDW Coeff of Alejandra 15.9 H (11.5-14.5) % Plt Count 125 L (130-400) K/uL MPV 9.4 (7.4-10.4) fL Immature Gran % (Auto) 0.3 % Neut % (Auto) 64.4 % Lymph % (Auto) 23.8 % Curry % (Auto) 9.4 % Eos % (Auto) 1.8 % Baso % (Auto) 0.3 % Immature Gran # (Auto) 0.01 (0.00-0.02) K/uL Neut # (Auto) 2.19 (1.4-6.5) K/uL Lymph # (Auto) 0.81 L (1.2-3.4) K/uL Curry # (Auto) 0.32 (0.11-0.59) K/uL Eos # (Auto) 0.06 (0-0.5) K/uL Baso # (Auto) 0.01 (0-0.2) K/uL PT (9.0-12.0) Seconds INR (0.9-1.1) APTT (21.0-31.0) Seconds PTT Ratio Sodium 135 L (136-145) mmol/L Potassium 4.6 (3.5-5.1) mmol/L Chloride 100 (98-107) mmol/L Carbon Dioxide 27 (21-32) mmol/L Anion Gap 8.0 (3-11) BUN 21 H (7-18) mg/dl Creatinine 3.98 H (0.6-1.2) mg/dl Est Cr Clr Drug Dosing 11.7 ml/min Est GFR ( Amer) 11.9 Est GFR (Non-Af Amer) 10.3 BUN/Creatinine Ratio 5.2 L (10-20) Glucose 116 H (70-99) mg/dl Calcium 8.8 (8.5-10.1) mg/dl Total Bilirubin 0.4 (0.2-1) mg/dl AST 18 (15-37) U/L ALT 18 (12-78) U/L Alkaline Phosphatase 114 (45-117) U/L Total Protein 7.5 (6.4-8.2) gm/dl Albumin 3.5 (3.4-5.0) gm/dl Globulin 4.0 (2.5-4.0) gm/dl Albumin/Globulin Ratio 0.9 (0.9-2) TSH 2.180 (0.300-4.500) uIu/ml Salicylates < 1.7 L (2.8-20) mg/dl Acetaminophen < 2 L (10-30) ug/ml Ethyl Alcohol mg/dL (0-3) mg/dl 04/09/19 04/09/19 Range/Units 01:30 EST 01:39 EST WBC (4.8-10.8) K/uL RBC (4.2-5.4) M/uL Hgb (12.0-16.0) g/dL Hct (37-47) % MCV (80-100) fL MCH (25-34) pg MCHC (32-36) g/dL RDW Std Deviation (36.4-46.3) fL RDW Coeff of Alejandra (11.5-14.5) % Plt Count (130-400) K/uL MPV (7.4-10.4) fL Immature Gran % (Auto) % Neut % (Auto) % Lymph % (Auto) % Curry % (Auto) % Eos % (Auto) % Baso % (Auto) % Immature Gran # (Auto) (0.00-0.02) K/uL Neut # (Auto) (1.4-6.5) K/uL Lymph # (Auto) (1.2-3.4) K/uL Curry # (Auto) (0.11-0.59) K/uL Eos # (Auto) (0-0.5) K/uL Baso # (Auto) (0-0.2) K/uL PT 13.9 H (9.0-12.0) Seconds INR 1.4 H (0.9-1.1) APTT 32.8 H (21.0-31.0) Seconds PTT Ratio 1.2 Sodium (136-145) mmol/L Potassium (3.5-5.1) mmol/L Chloride (98-107) mmol/L Carbon Dioxide (21-32) mmol/L Anion Gap (3-11) BUN (7-18) mg/dl Creatinine (0.6-1.2) mg/dl Est Cr Clr Drug Dosing ml/min Est GFR ( Amer) Est GFR (Non-Af Amer) BUN/Creatinine Ratio (10-20) Glucose (70-99) mg/dl Calcium (8.5-10.1) mg/dl Total Bilirubin (0.2-1) mg/dl AST (15-37) U/L ALT (12-78) U/L Alkaline Phosphatase (45-117) U/L Total Protein (6.4-8.2) gm/dl Albumin (3.4-5.0) gm/dl Globulin (2.5-4.0) gm/dl Albumin/Globulin Ratio (0.9-2) TSH (0.300-4.500) uIu/ml Salicylates (2.8-20) mg/dl Acetaminophen (10-30) ug/ml Ethyl Alcohol mg/dL < 3.0 (0-3) mg/dl Administered Medications Sodium Chloride (Nss 1000ml) 1,000 mls @ 125 mls/hr IV .Q8H GLENIS Stop: 05/09/19 01:44 Last Admin: 04/09/19 01:41 EST Dose: 125 mls/hr Documented by: [id number] Medical Decision Making Laboratory Data Result diagrams: 04/09/19 01:30 EST 04/09/19 01:30 EST Lab Results 11/03/19 11/03/19 11/03/19 Range/Units 01:30 EST 01:30 EST 01:30 EST WBC 3.40 L (4.8-10.8) K/uL RBC 3.57 L (4.2-5.4) M/uL Hgb 11.7 L (12.0-16.0) g/dL Hct 36.4 L (37-47) % MCV 102.0 H (80-100) fL MCH 32.8 (25-34) pg MCHC 32.1 (32-36) g/dL RDW Std Deviation 58.9 H (36.4-46.3) fL RDW Coeff of Alejandra 15.9 H (11.5-14.5) % Plt Count 125 L (130-400) K/uL MPV 9.4 (7.4-10.4) fL Immature Gran % (Auto) 0.3 % Neut % (Auto) 64.4 % Lymph % (Auto) 23.8 % Curry % (Auto) 9.4 % Eos % (Auto) 1.8 % Baso % (Auto) 0.3 % Immature Gran # (Auto) 0.01 (0.00-0.02) K/uL Neut # (Auto) 2.19 (1.4-6.5) K/uL Lymph # (Auto) 0.81 L (1.2-3.4) K/uL Curry # (Auto) 0.32 (0.11-0.59) K/uL Eos # (Auto) 0.06 (0-0.5) K/uL Baso # (Auto) 0.01 (0-0.2) K/uL PT (9.0-12.0) Seconds INR (0.9-1.1) APTT (21.0-31.0) Seconds PTT Ratio Sodium 135 L (136-145) mmol/L Potassium 4.6 (3.5-5.1) mmol/L Chloride 100 (98-107) mmol/L Carbon Dioxide 27 (21-32) mmol/L Anion Gap 8.0 (3-11) BUN 21 H (7-18) mg/dl Creatinine 3.98 H (0.6-1.2) mg/dl Est Cr Clr Drug Dosing 11.7 ml/min Est GFR ( Amer) 11.9 Est GFR (Non-Af Amer) 10.3 BUN/Creatinine Ratio 5.2 L (10-20) Glucose 116 H (70-99) mg/dl Calcium 8.8 (8.5-10.1) mg/dl Total Bilirubin 0.4 (0.2-1) mg/dl AST 18 (15-37) U/L ALT 18 (12-78) U/L Alkaline Phosphatase 114 (45-117) U/L Total Protein 7.5 (6.4-8.2) gm/dl Albumin 3.5 (3.4-5.0) gm/dl Globulin 4.0 (2.5-4.0) gm/dl Albumin/Globulin Ratio 0.9 (0.9-2) TSH 2.180 (0.300-4.500) uIu/ml Salicylates < 1.7 L (2.8-20) mg/dl Acetaminophen < 2 L (10-30) ug/ml Ethyl Alcohol mg/dL (0-3) mg/dl 04/09/19 04/09/19 Range/Units 01:30 EST 01:39 EST WBC (4.8-10.8) K/uL RBC (4.2-5.4) M/uL Hgb (12.0-16.0) g/dL Hct (37-47) % MCV (80-100) fL MCH (25-34) pg MCHC (32-36) g/dL RDW Std Deviation (36.4-46.3) fL RDW Coeff of Alejandra (11.5-14.5) % Plt Count (130-400) K/uL MPV (7.4-10.4) fL Immature Gran % (Auto) % Neut % (Auto) % Lymph % (Auto) % Curry % (Auto) % Eos % (Auto) % Baso % (Auto) % Immature Gran # (Auto) (0.00-0.02) K/uL Neut # (Auto) (1.4-6.5) K/uL Lymph # (Auto) (1.2-3.4) K/uL Curry # (Auto) (0.11-0.59) K/uL Eos # (Auto) (0-0.5) K/uL Baso # (Auto) (0-0.2) K/uL PT 13.9 H (9.0-12.0) Seconds INR 1.4 H (0.9-1.1) APTT 32.8 H (21.0-31.0) Seconds PTT Ratio 1.2 Sodium (136-145) mmol/L Potassium (3.5-5.1) mmol/L Chloride (98-107) mmol/L Carbon Dioxide (21-32) mmol/L Anion Gap (3-11) BUN (7-18) mg/dl Creatinine (0.6-1.2) mg/dl Est Cr Clr Drug Dosing ml/min Est GFR ( Amer) Est GFR (Non-Af Amer) BUN/Creatinine Ratio (10-20) Glucose (70-99) mg/dl Calcium (8.5-10.1) mg/dl Total Bilirubin (0.2-1) mg/dl AST (15-37) U/L ALT (12-78) U/L Alkaline Phosphatase (45-117) U/L Total Protein (6.4-8.2) gm/dl Albumin (3.4-5.0) gm/dl Globulin (2.5-4.0) gm/dl Albumin/Globulin Ratio (0.9-2) TSH (0.300-4.500) uIu/ml Salicylates (2.8-20) mg/dl Acetaminophen (10-30) ug/ml Ethyl Alcohol mg/dL < 3.0 (0-3) mg/dl [facility] Narrative Discharge Plan Visit Data *Final* Discharge Date/Time: 04/09/19 04:41 Chief Complaint: Overdose (Accidental) Stated Complaint: OVERDOSE ED Provider: Kennedy Min Discharge Problem: Accidental overdose Patient Disposition: Admitted As Inpatient Discharge Instructions Interventions: ED Discharge Assessment Last Done: 04/09/19 04:41 Discharge Problem: Accidental overdose Qualifiers: Encounter type: initial encounter Qualified Code(s): T50.901A - Poisoning by unspecified drugs, medicaments and biological substances, accidental (unintentional), initial encounter The scribe's documentation has been prepared under my direction and personally reviewed by me in its entirety. I confirm that the note above accurately reflects all work, treatment, procedures, and medical decision making performed by me.
[2019-04-09] MEDS ORDERED: CALCIUM ACETATE 667 MG CAP PO SCH (08:00)
[2019-04-09] MEDS: OXcarbazepine 150 MG TABLET PO SCH ×2 (08:13→13:40)
[2019-04-09] MEDS: LABETALOL HCL 200 MG TAB PO SCH ×2 (08:17→13:40)
[2019-04-09] MEDS ORDERED: lamoTRIgine 100 MG TAB PO SCH (09:00)
[2019-04-09] MEDS ORDERED: LACTOBACILLUS ACIDOPHILUS (FLORANEX) TAB PO SCH (09:00)
[2019-04-09] MEDS ORDERED: PANTOprazole 40 MG TAB PO SCH (09:00)
[2019-04-09] MEDS ORDERED: CEROVITE ADV FORMULA TAB PO SCH (09:00)
[2019-04-09] MEDS ORDERED: NON-FORMULARY MEDICATION (Biotin 1 MG) PO SCH (09:00)
[2019-04-09] MEDS ORDERED: WARFARIN SOD 5 MG TAB PO ONE (09:46)
[2019-04-09] MEDS ORDERED: SENNA 8.6 MG TAB PO ONE (09:58)
--- NOTE | 2019-04-09 15:06 | Discharge Summary ---
Date of Service April 09, 2019 Admission HPI Per Admitting Provider The patient is a 74-year-old female with a past medical history including lumbar degenerative disc disease, GERD, gout, hyperlipidemia, vitamin D deficiency, bladder B12 deficiency, obstructive sleep apnea, morbid obesity, hiatal hernia, diabetic nephropathy, C. difficile colitis, cirrhosis, ESRD on HD, anemia chronic disease, hyperlipidemia, atrial fibrillation and CHF. She presents to the emergency department after an accidental overdose ingestion of 24 Lomotil pills that occurred prior to arrival. She typically puts all of her medications for the day in old medicine bottles, and because she had trouble opening a Lomotil bottle she put a brand-new bottle into a medicine bottle as well. when she took her pills tonight, since she typically just throws the bottle up to her mouth, inadvertently ingested 24 Lomotil pills which were adjacent to her usual pills. She has no complaints at this time. Admission Exam Per Admitting Provider The patient is awake, alert and oriented 3, obese, normocephalic and atraumatic, lying in bed and in no acute distress. HEENT--PERRL, EOMI, mucous membranes and oropharynx dry. Neck--No JVD. No bruits. Thyroid normal, trachea midline, no adenopathy. Heart--normal S1 and S2. No murmurs, rubs or gallops. Lungs--clear bilaterally, no respiratory distress, no accessory muscle use. Abdomen--normal bowel sounds and soft. Nontender. Nondistended. Obese. Extremities--no cyanosis or clubbing. No edema. Dermatologic--normal skin turgor, normal color, no abnormal lymph nodes, no rash. Neurologic--cranial nerves II through XII grossly intact. Rheumatologic--normal range of motion. Psychiatric--normal affect. Principal Diagnosis Accidental anticholinergic overdose (Lomotil) Discharge Exam Constitutional well developed and + obese; no acute distress and not ill appearing Eyes + anicteric sclerae, PERRL and EOM intact bilaterally; normal pupil size ENMT external ear and nose normal, oropharynx normal Neck normal visual inspection, trachea midline and + thick neck Respiratory normal respiratory effort, lungs clear to auscultation Cardiovascular Rate/Rhythm: regular rate and regular rhythm Heart Sounds: no murmur Gastrointestinal (Abdomen) normal bowel sounds, soft, nontender, no hepatosplenomegaly Musculoskeletal no cyanosis or clubbing, extremities motor strength 5/5 Skin no rashes, warm and dry Neurologic moves all extremities and awake; not confused Motor/Sensory: no tremor and no pronator drift Psychiatric A+Ox3, euthymic affect Discharge Data Allergies Allergy/AdvReac Type Severity Reaction Status Date / Time ANGEL Inhibitors Allergy Mild Cough Verified 04/09/19 02:40 doxycycline Allergy Mild upset Verified 04/09/19 02:40 stomach simvastatin Allergy Mild "did not Verified 04/09/19 02:40 feel well while taking" metformin Allergy Unknown does not Verified 04/09/19 02:40 remember pioglitazone Allergy Unknown ? NOT SURE Verified 04/09/19 02:40 rosiglitazone Allergy Unknown NOT SURE Verified 04/09/19 02:40 Orjtzvt-Tmr-Fyx Reductase AdvReac Intermediate LEGS HURT Verified 04/09/19 02:40 Inhibitor Cipro AdvReac Mild UPSET Verified 04/06/17 11:43 STOMACH ciprofloxacin AdvReac Mild UPSET Verified 04/09/19 02:40 STOMACH levofloxacin AdvReac Mild ?NAUSEA Verified 04/09/19 02:40 escitalopram AdvReac Unknown Verified 04/09/19 02:40 homatropine AdvReac Unknown Verified 04/09/19 02:40 [From Hycodan (with homatropin)] oxycodone AdvReac Unknown Verified 04/09/19 02:40 CAT GUT SUTURES Allergy Intermediate SLOW Uncoded 04/09/19 02:40 HEALING,INFLAMED TISSUE Consultations 04/09/19 02:29 ED Decision to Admit Stat 04/09/19 05:37 Consult Case Management - Discharge Planning Routine Hospital Course (1) Anticholinergic drug overdose: Mrs. Diaz was observed overnight due to accidental overdose of Lomotil instead of taking her usual medications. Discussed with poison control and given lack of anticholinergic side effects and peak of onset 2 hours, no specific problems anticipated with taking these except for constipation. Patient was advised to take MiraLAX at home is no bowel movement today or tomorrow and follow up at dialysis for further advice. She also missed a dose of warfarin on 04/08, therefore given an extra 5mg on 04/09 and will follow up with her usual INR test on Wednesday. Total Time Total Time Spent Total Time Spent (In Minutes): 40 Total Time Includes: Examination of the Patient, Discharge Planning and Medication Reconciliation Discharge Plan Discharge Items Patient Disposition: Home - Self-Care Reason For Visit: ACCIDENTAL ANTICHOLINERGIC OVERDOSE Discharge Diagnosis: Accidental anticholinergic overdose (Lomotil) Activity: Resume your previous activity Non-emergency contact: Primary Care Provider and Outpatient Admitting Clerk Call non-emergency contact if: you have any medication questions and your symptoms worsen Follow-up/Referrals: Jc Espino MD [Primary Care Provider] - Diet: Dialysis Renal Addtl Attending Provider Instructions: You were observed overnight due to accidental overdose of Lomotil. No significant anticholinergic side effects (flushing, dryness, sweating, delirium, urinary retention) were observed due to this. Recommend taking MiraLAX over the counter if you do not have a bowel movement today or tomorrow and discuss further bowel regimens at dialysis tomorrow if this remains a problem. You also missed a dose warfarin on 04/08. Increased dose of 15mg was given 04/09 to make up for this somewhat. Please follow up with your usual outpatient provider for ongoing dosing of your INR as it has been low. INR 1.4 on day of admission/discharge. Pending Studies at Discharge: No Stand-Alone Forms: My [facility], Smoking Cessation Medications and DC Order Prescriptions: Continued omeprazole 40 mg capsule,delayed release(DR/EC) 40 mg PO DAILY Qty: 90 RF: 1 oxcarbazepine [Trileptal] 600 mg tablet 600 mg PO .COMPLEX 30 Days Qty: 60 RF: 5 lamotrigine 100 mg tablet 100 mg PO BID 30 Days Qty: 60 RF: 5 hydrocodone-acetaminophen 10-325 mg tablet 1 tab PO Q6H PRN (Reason: pain) Qty: 120 RF: 0 biotin 1 mg capsule 1 mg PO BID RF: 0 cholestyramine (with sugar) [Questran] 4 gram powder 4 gm PO BID Qty: 378 RF: 5 ProRenal 8 mg iron-800 mcg-1,000 unit tablet 1 tab PO DAILY RF: 0 bumetanide 2 mg tablet 2 mg PO BID RF: 0 cetirizine [Zyrtec] 10 mg Tablet 10 mg PO DAILY RF: 0 calcium acetate 667 mg capsule 2 tabs PO BIDM RF: 0 Probiotic 3 billion cell capsule 3,000 mmu cells PO DAILY RF: 0 cranberry 400 mg capsule 800 mg PO BID RF: 0 labetalol 200 mg Tablet 200 mg PO UD RF: 0 warfarin 5 mg tablet 10 mg PO DAILY RF: 0 Discharge Orders: Discharge Order (Routine); Ordered 04/09/19 Ordered By: Tin Morris Admission Data Admit Date/Time: 04/09/19 03:38 Attending Provider: Tin Morris Admit Provider: Ventura Martinez Primary Care Provider: Jc Espino Other Providers: Ventura Martinez Other Interventions: Discharge Summary Assessment (RN) Last Done: 04/09/19 15:25 DC Date/Time DO NOT enter until pt leaves facility: 04/09/19 15:50
[2019-04-09] MEDS ORDERED: WARFARIN SOD 5 MG TAB PO SCH (16:00)
[2019-04-10] MEDS ORDERED: LABETALOL HCL 200 MG TAB PO SCH (09:00)
[2019-04-13] MEDS ORDERED: LABETALOL HCL 200 MG TAB PO SCH (09:00)
== END 2019-04-09 15:50 | disposition home or self-care (01) ==
LOC: ED 01:13 → 2N 01:13 → EDUNIT# 01:34 → EDBD 01:34 → SUATTDRO 03:38 → 2N 04:41

== ENCOUNTER 2020-05-21 16:12 | Inpatient (IN) ==
[2020-05-21 17:01] LABS: Basophils # (auto) 0.02 K/uL (0-0.2); Basophils % (auto) 0.2 %; Eosinophils # (auto) 0.07 K/uL (0-0.5); Eosinophils % (auto) 0.7 %; Hematocrit (blood only) 31.1 % (37-47); Immature Granulocytes # (auto) 0.04 K/uL (0.00-0.02); Immature Granulocytes % (auto) 0.4 %; Lymphocytes % (auto) 11.5 %; Mean Corpuscular Hemoglobin 32.6 pg (25-34); Mean Corpuscular Hgb Conc 32.2 g/dL (32-36); Mean Corpuscular Volume 101.3 fL (80-100); Monocytes # (auto) 0.61 K/uL (0.11-0.59); Monocytes % (auto) 6.4 %; Neutrophils % (auto) 80.8 %; Platelet Count 190 K/uL (130-400); RDW Coefficient of Variation 16.5 % (11.5-14.5); RDW Standard Deviation 58.8 fL (36.4-46.3); Red Blood Count 3.07 M/uL (4.2-5.4); White Blood Count 9.54 K/uL (4.8-10.8)
--- NOTE | 2020-05-21 17:09 | XRay Report ---
XR foot LT min 3V routine CLINICAL HISTORY: cellulitis, necrotic 2nd toe, evaluate osseous involvement. COMPARISON: None FINDINGS: Tarsometatarsal joints are intact. No acute fracture is noted within the left foot. There is no evidence for acute osteomyelitis within the left foot. Extensive vascular calcification is note d. There is suspected calcific tendinitis of the Achilles. Plantar and posterior calcaneal spurring i s noted. There is moderate mid foot osteoarthritis. Cortical irregularity of the shaft of the proxima l phalanx of the left second toe is probably chronic. IMPRESSION: 1. No acute fracture. No radiographic evidence for acute osteomyelitis within the left foot. 2. Mild cortical irregularity of the shaft of the proximal phalanx of the left second toe which is pr obably chronic. ACT 112: Negative or not required by law. Electronically signed by: Dayron Cardozo M.D. 05/21/2020 5:08 PM
[2020-05-21 17:15] LABS: Alanine Aminotransferase 16 U/L (12-78); Aspartate Aminotransferase 13 U/L (15-37); BUN Creatinine Ratio 4.8 (10-20); Blood Urea Nitrogen 21 mg/dl (7-18); Calcium 9.2 mg/dl (8.5-10.1); Carbon Dioxide 27 mmol/L (21-32); Chloride 97 mmol/L (98-107); Creatinine Clr Calc Pharmacy 10.4 ml/min; Est GFR (African American) 10.6; Est GFR (Non-African American) 9.2; Glucose 116 mg/dl (70-99); Magnesium 1.9 mg/dl (1.8-2.4); Sodium 132 mmol/L (136-145)
[2020-05-21 17:17] LABS: Partial Thromboplastin Ratio 1.3; Partial Thromboplastin Time 35.9 Seconds (21.0-31.0)
[2020-05-21 17:20] LABS: Albumin Globulin Ratio 0.7 (0.9-2); Alkaline Phosphatase 106 U/L (45-117); Bilirubin,Total 0.5 mg/dl (0.2-1); Globulin 4.3 gm/dl (2.5-4.0); Total Protein 7.3 gm/dl (6.4-8.2); Troponin I < 0.015 ng/ml (0-0.045)
[2020-05-21] MEDS ORDERED: PIPERACILLIN/TAZOBACTAM 4.5 GM/120 ML BAG IV ONE (17:26)
[2020-05-21] MEDS ORDERED: PIPERACILL/TAZOBAC CONSULT ACTIVE PRN (17:26)
[2020-05-21] MEDS ORDERED: VANCOMYCIN HCL 1,750 MG in SODIUM CHLORIDE 0.9% 500 ML IV ONE (17:26)
[2020-05-21] MEDS ORDERED: VANCOMYCIN CONSULT ACTIVE PRN (17:26)
--- NOTE | 2020-05-21 17:49 | Emergency Department Note ---
Impression & Plan Toe necrosis, ESRD (end stage renal disease) on dialysis, Cellulitis of foot, left, Peripheral arterial disease ED Provider Note NAME: KEVIN JEWELL AGE: 75 SEX: F ARRIVES VIA: Walk-In INFORMANT: Patient, ED PROVIDER(S): Mau Lazaro MD CHIEF COMPLAINT: Black toe PLAN: Disposition: Admit MEDICAL DECISION MAKING: The patient is a pleasant 75-year-old woman with a past medical history of end- stage renal disease on HD MWF, SERENITY, diabetes, hypertension, hyperlipidemia, A. fib on Eliquis who presents emergency department referred from her PCPs office with concern for necrotic left second toe in the setting of presumed peripheral arterial disease in the setting of the patient's end-stage renal disease. The patient reports she has been having ongoing pain in her left foot and toe for over 4 weeks with cellulitis she reports has been treated with different antibiotics but no improvement. Reports she had dialysis yesterday and has not missed any sessions. She denies fevers, chills, cough, congestion, chest pain, shortness of breath, nausea, vomiting, diarrhea. She denies any known COVID-19 exposures. On arrival the patient is uncomfortable but no acute distress, afebrile with stable vital signs. Her left second toe is necrotic with dry gangrene but no discharge. She has erythema warmth and tenderness to the dorsum of the left foot. She does have dopplerable PT and DP pulses of the left foot. Case was reviewed with Dr. Johnson, vascular surgery. He was made aware of the patient by the patient's PCP but was understanding that she would get outpatient arterial studies and be seen in his clinic. However this may have been due to the patient requiring convincing to come the emergency department by the PCP. Dr. Johnson recommends for arterial studies of bilateral lower extremities. However given the patient's cellulitis on exam which per the patient has failed numerous attempts at outpatient management reasonable to admit the patient for treatment of cellulitis and vascular surgery consultation. Patient's gangrenous toe certainly will require amputation at some point. WBC and platelets within normal limits. H/H 04/06.1 similar to prior. Chemistry without metabolic acidosis. Creatinine 4 in the setting of known end- stage renal disease. Potassium 4.0, within normal limits. LFTs unremarkable. Troponin negative/undetectable. Lactate within normal limits. Bilateral arterial duplex ordered pending. Patient agrees with plan for admission for IV antibiotics and vascular surgery consultation. Case was d/w Mirna Snyder [facility], with Dr. [facility] hospitalist who will evaluate the patient for admission. Arterial studies subsequently showing elevated peak systolic velocity of 315 cm/s within the distal left popliteal artery which suggests a hemodynamically significant stenosis. Also with monophasic dampened flow within the left anterior tibial, dorsalis pedis and peroneal arteries as well as the proximal left posterior tibial artery. Flow not identified within the distal left posterior tibial artery. Triage Nursing notes reviewed and agree them. Additional history obtained from Dr. Roberts. Prior medical records reviewed Vital Signs: reviewed and remarkable for no significant abnormalities Differential diagnosis: Cellulitis, abscess, MRSA infection, DVT, necrotizing fasciitis, dermatitis, drug eruption, allergic reaction, as well as other pathologies. ER treatment provided: See below. Diagnostics interpreted by me: ECG: Atrial fibrillation, 79 bpm, no ectopy, nonspecific T wave abnormality, no overt ST elevation or depression, QTC 460, QRS 80. Cardiac Monitoring: An order for continuous cardiac monitoring was placed and demonstrated Atrial fibrillation, 79 bpm, no ectopy. Laboratory studies: See below Imaging studies: XR foot LT min 3V routine CLINICAL HISTORY: cellulitis, necrotic 2nd toe, evaluate osseous involvement. COMPARISON: None FINDINGS: Tarsometatarsal joints are intact. No acute fracture is noted within the left foot. There is no evidence for acute osteomyelitis within the left foot. Extensive vascular calcification is noted. There is suspected calcific tendinitis of the Achilles. Plantar and posterior calcaneal spurring is noted. There is moderate mid foot osteoarthritis. Cortical irregularity of the shaft of the proximal phalanx of the left second toe is probably chronic. IMPRESSION: 1. No acute fracture. No radiographic evidence for acute osteomyelitis within the left foot. 2. Mild cortical irregularity of the shaft of the proximal phalanx of the left second toe which is probably chronic. -- BILATERAL LOWER EXTREMITY ARTERIAL DOPPLER ULTRASOUND CLINICAL HISTORY: Arterial insufficiency, toe necrosis. COMPARISON STUDY: Bilateral lower extremity arterial Doppler ultrasound Feb ruary 2007. TECHNIQUE: Grayscale, color and duplex Doppler sonography of the arterial systems of both lower extremities was performed. FINDINGS: Ankle to brachial indices could not be obtained as the bilateral posterior tibial and dorsalis pedis vessels were noncompressible. Abnormal digit waveforms were noted within the left first through fifth toes as well as the right second and third toes. Moderate atherosclerotic plaque within each lower extremity was noted. There was biphasic flow within the right common femoral, superficial femoral and popliteal arteries. The bilateral calf vessels were difficult to visualize on this exam. Monophasic flow was noted within the right posterior tibial, anterior tibial, peroneal and dorsalis pedis vessels. Right peroneal artery is diminutive. Monophasic waveforms within the right calf vessels is a new finding since exam of August 05, 2007. There was biphasic flow within the left common femoral and superficial femoral arteries. Note was made of an elevated peak systolic velocity of 315 cm/s within the distal left popliteal artery which suggests a hemodynamically significant stenosis. Monophasic dampened flow was noted within the left anterior tibial, dorsalis pedis and peroneal arteries as well as the proximal left posterior tibial artery. Flow was not identified within the distal left posterior tibial artery. Waveforms are dampened and monophasic were compared to prior exam. IMPRESSION: 1. Extensive calcified atherosclerotic plaque within the lower extremities. Probable stenosis within the distal left popliteal artery with monophasic flow within the left calf vessels. Waveforms dampened when compared to prior exam of August 05, 2007. No flow identified within the distal left posterior tibial artery. 2. Monophasic flow within the right calf vessels. No evidence for a hemodynamically significant stenosis within the right common femoral, superficial femoral or popliteal arteries. Consultation(s): Dr. Johnson, Vascular surgery Mirna Snyder, [facility], with Dr. [facility] hospitalist HPI: The patient is a pleasant 75-year-old woman with a past medical history of end-stage renal disease on HD MWF, SERENITY, diabetes, hypertension, hyperlipidemia, A. fib on Eliquis who presents emergency department referred from her PCPs office with concern for necrotic left second toe in the setting of presumed peripheral arterial disease in the setting of the patient's end-stage renal disease. The patient reports she has been having ongoing pain in her left foot and toe for over 4 weeks with cellulitis she reports has been treated with different antibiotics but no improvement. Reports she had dialysis yesterday and has not missed any sessions. She denies fevers, chills, cough, congestion, chest pain, shortness of breath, nausea, vomiting, diarrhea. She denies any known COVID-19 exposures. ROS: See above HPI for pertinent positives & negatives. A total of 10 systems reviewed and were otherwise negative. PAST MEDICAL HISTORY:See Below PAST SURGICAL HISTORY:See Below FAMILY HISTORY:See Below SOCIAL HISTORY:See Below HOME MEDICATIONS:See Below ALLERGIES:See Below VITALS:See Below PHYSICAL EXAMINATION: GENERAL: Awake, alert, chronically ill-appearing, in no distress HENT: Normocephalic, atraumatic. Oropharynx unremarkable. EYES: Normal conjunctiva. Sclera non-icteric. NECK: Supple. No nuchal rigidity. FROM. No JVD. RESPIRATORY: Clear to auscultation. CARDIAC: Regular rate, irregular rhythm. Extremities warm and well perfused. Dopplerable LLE PT and DP pulses. ABDOMEN: Soft, non-distended. No tenderness to palpation. No rebound or guarding. No masses. RECTAL: Deferred. MUSCULOSKELETAL: Chest examination reveals no tenderness. The back is symmetrical on inspection without obvious abnormality. There is no CVA tenderness to palpation. No joint edema. LOWER EXTREMITIES: Calves are equal size bilaterally and non-tender. Mild edema, erythema, warmth and tenderness to the dorsum of the left foot with necro tic left second phalanx. Foul odor with no discharge. NEURO: Normal sensorium. No sensory or motor deficits noted. SKIN: No rash or jaundice noted. ED COURSE: Critical Care: I have personally spent greater than 35 minutes of critical care time in the direct management of this patient. This includes bedside care, interpretation of diagnostic studies, and testing, discussion with consultants, patient, and family members, and other required patient management activities. This 35 minutes is in excess of all separately billable procedures. Mau Lazaro MD Past Med/Surg History Medical History Anemia Anemia Asymptomatic bilateral carotid artery stenosis Atrial fibrillation C. difficile colitis Carpal tunnel syndrome CHF exacerbation Cholangitis Cirrhosis Cirrhosis of liver CKD (chronic kidney disease) stage 3, GFR 30-59 ml/min DIALYSIS M/W/F TRANQUILLITY Clostridium difficile infection 2016 Diabetes Diabetic nephropathy Disc degeneration, lumbar Diverticulosis DVT prophylaxis Encounter for pre-operative examination Encounter for pre-operative examination Erosive (osteo)arthritis ESRD (end stage renal disease) receives HD q M/W/F ESRD (end stage renal disease) on dialysis Gastroesophageal reflux disease GERD (gastroesophageal reflux disease) Gout Gout Hiatal hernia Hip fracture, left HTN (hypertension) Hyperlipidemia Hyperlipidemia Hyperlipidemia Hypoalbuminemia Hypokalemia due to loss of potassium Hypomagnesemia Internal hemorrhoids Left ventricular hypertrophy Lymphedema Morbid obesity Nocturnal hypoxia Obstructive sleep apnea Osteoporosis Proteinuria Scoliosis Sleep apnea NO DEVICE Spinal stenosis Spinal stenosis Tremor Trigeminal neuralgia Vitamin B12 deficiency Vitamin D deficiency Surgical History AV fistula L upper extremity H/O knee surgery H/O tubal ligation History of carpal tunnel surgery History of Neuroplasty Decompression Median Nerve At Carpal Tunnel History of cataract surgery RT/LEFT History of cholecystectomy History of colonoscopy History of dilation and curettage History of ERCP MULTIPLE History of esophagogastroduodenoscopy (EGD) History of total knee replacement RT/LEFT Family History Daughter Breast cancer Unknown Emphysema, unspecified Other Family history non-contributory Social History Smoking Status: Never smoker Second Hand Exposure: No; Hx Alcohol Use: No Hx Substance Use: No Preferred Language: Somali Communication Ability: Effective Visual Impairment: No Limitations Yoga Coordinator Required: No Beliefs That Will Affect Care: None marital status: Current Living Situation: Spouse current occupational status: retired Feels Safe at Home: Yes caffeine: Yes Seatbelt Use: always Assistive Devices: Denture - Upper, Walker and Wheelchair Allergies Allergies Allergy/AdvReac Type Severity Reaction Status Date / Time ANGEL Inhibitors Allergy Mild Cough Verified 05/21/20 19:45 doxycycline Allergy Mild upset Verified 05/21/20 19:45 stomach simvastatin Allergy Mild "did not Verified 05/21/20 19:45 feel well while taking" metformin Allergy Unknown does not Verified 05/21/20 19:45 remember pioglitazone Allergy Unknown ? NOT SURE Verified 05/21/20 19:45 rosiglitazone Allergy Unknown NOT SURE Verified 05/21/20 19:45 Lrchvyi-Ozc-Tyh Reductase AdvReac Intermediate LEGS HURT Verified 05/21/20 19:45 Inhibitor ciprofloxacin AdvReac Mild UPSET Verified 05/21/20 19:45 STOMACH levofloxacin AdvReac Mild ?NAUSEA Verified 05/21/20 19:45 escitalopram AdvReac Unknown Verified 05/21/20 19:45 homatropine AdvReac Unknown Verified 05/21/20 19:45 [From Hycodan (with homatropin)] oxycodone AdvReac Unknown Verified 05/21/20 19:45 CAT GUT SUTURES Allergy Intermediate SLOW Uncoded 05/21/20 19:45 HEALING,INFLAMED TISSUE Home Meds Home Medications Medication Instructions Recorded Confirmed cetirizine [Zyrtec] 10 mg PO QDD 07/07/18 05/21/20 ProRenal 2 tab PO QDD 12/19/18 05/21/20 biotin 1 mg capsule 1 mg PO BID cap 02/01/19 05/21/20 cranberry 400 mg capsule 800 mg PO BID 02/01/19 05/21/20 lactobacillus combination no.4 3 3,000 mmu cells PO BIDM cap 02/01/19 05/21/20 billion cell capsule apixaban [Eliquis] 5 mg PO BID 01/24/20 05/21/20 calcium acetate(phosphat bind) 667 667 mg PO BID cap 03/12/20 05/21/20 mg capsule hydrocodone-acetaminophen 1 tab PO Q12H 05/21/20 05/21/20 labetalol See Rx Instructions .ROUTE .COMPLEX 05/21/20 05/21/20 loperamide [Imodium A-D] 2 mg PO Q6H PRN 05/21/20 05/21/20 oxcarbazepine See Rx Instructions .ROUTE .COMPLEX 05/21/20 05/21/20 Previous Rx's Medication Instructions Recorded lamotrigine 25 mg tablet 25 mg PO BID 30 Days #60 tab 01/02/20 promethazine 25 mg tablet 25 mg PO TID PRN #30 tab 02/21/20 bumetanide 2 mg tablet 2 mg PO BID #180 tab 05/21/20 omeprazole 40 mg capsule,delayed 40 mg PO DAILY #90 cap 05/21/20 release Results & Data (ED) Vital Signs Vital Signs - 24 hr 05/21/20 16:14 05/21/20 16:37 05/21/20 16:41 Temperature 37.0 C Temperature Source Oral Pulse Rate 85 82 100 H Pulse Rate from SpO2 Sensor 79 87 Respiratory Rate 20 20 15 Respiratory Effort / Characteristics Non-Labored Respiratory Depth Normal Respiratory Pattern Regular Blood Pressure 151/78 H 111/53 L Blood Pressure Mean 102 77 Blood Pressure Position Sitting Pulse Oximetry 93 96 98 Oxygen Delivery Method Room Air Sepsis Recent Fever Within 48 Hours No Sepsis New/Unexplained Change in Mental Status No Sepsis Action Taken by Nursing No Action Required 05/21/20 16:45 05/21/20 17:00 05/21/20 17:15 Temperature Temperature Source Pulse Rate 73 78 74 Pulse Rate from SpO2 Sensor Respiratory Rate 15 14 21 Respiratory Effort / Characteristics Respiratory Depth Respiratory Pattern Blood Pressure Blood Pressure Mean Blood Pressure Position Pulse Oximetry Oxygen Delivery Method Sepsis Recent Fever Within 48 Hours Sepsis New/Unexplained Change in Mental Status Sepsis Action Taken by Nursing 05/21/20 17:30 05/21/20 17:39 05/21/20 17:42 Temperature Temperature Source Pulse Rate 73 76 75 Pulse Rate from SpO2 Sensor 79 75 Respiratory Rate 18 10 L 15 Respiratory Effort / Characteristics Respiratory Depth Respiratory Pattern Blood Pressure 154/64 H 154/64 H Blood Pressure Mean 94 83 Blood Pressure Position Pulse Oximetry 96 92 Oxygen Delivery Method Sepsis Recent Fever Within 48 Hours Sepsis New/Unexplained Change in Mental Status Sepsis Action Taken by Nursing 05/21/20 19:30 05/21/20 19:32 05/21/20 20:00 Temperature Temperature Source Pulse Rate 74 87 Pulse Rate from SpO2 Sensor 78 Respiratory Rate 15 15 Respiratory Effort / Characteristics Respiratory Depth Respiratory Pattern Blood Pressure 94/70 L 158/83 H Blood Pressure Mean 86 100 Blood Pressure Position Pulse Oximetry 96 96 Oxygen Delivery Method Room Air Sepsis Recent Fever Within 48 Hours Sepsis New/Unexplained Change in Mental Status Sepsis Action Taken by Nursing 05/21/20 20:31 Temperature Temperature Source Pulse Rate 87 Pulse Rate from SpO2 Sensor Respiratory Rate 16 Respiratory Effort / Characteristics Respiratory Depth Respiratory Pattern Blood Pressure 173/96 H Blood Pressure Mean 112 Blood Pressure Position Pulse Oximetry 96 Oxygen Delivery Method Sepsis Recent Fever Within 48 Hours Sepsis New/Unexplained Change in Mental Status Sepsis Action Taken by Nursing Laboratory Data Attestation: I reviewed the patient's lab results. Result diagrams: 05/21/20 16:49 05/21/20 16:49 Lab Results 05/21/20 05/21/20 05/21/20 Range/Units 16:49 16:49 16:49 WBC 9.54 (4.8-10.8) K/uL RBC 3.07 L (4.2-5.4) M/uL Hgb 10.0 L (12.0-16.0) g/dL Hct 31.1 L (37-47) % MCV 101.3 H (80-100) fL MCH 32.6 (25-34) pg MCHC 32.2 (32-36) g/dL RDW Std Deviation 58.8 H (36.4-46.3) fL RDW Coeff of Alejandra 16.5 H (11.5-14.5) % Plt Count 190 (130-400) K/uL MPV 9.0 (7.4-10.4) fL Immature Gran % (Auto) 0.4 % Neut % (Auto) 80.8 % Lymph % (Auto) 11.5 % [place] % (Auto) 6.4 % Eos % (Auto) 0.7 % Baso % (Auto) 0.2 % Neut # (Auto) 7.70 H (1.4-6.5) K/uL Lymph # (Auto) 1.10 L (1.2-3.4) K/uL [place] # (Auto) 0.61 H (0.11-0.59) K/uL Eos # (Auto) 0.07 (0-0.5) K/uL Baso # (Auto) 0.02 (0-0.2) K/uL Immature Gran # (Auto) 0.04 H (0.00-0.02) K/uL PT 11.0 (9.0-12.0) Seconds INR 1.0 (0.9-1.1) APTT 35.9 H (21.0-31.0) Seconds PTT Ratio 1.3 Sodium 132 L (136-145) mmol/L Potassium 4.0 (3.5-5.1) mmol/L Chloride 97 L (98-107) mmol/L Carbon Dioxide 27 (21-32) mmol/L Anion Gap 9.0 (3-11) BUN 21 H (7-18) mg/dl Creatinine 4.36 H (0.6-1.2) mg/dl Est Cr Clr Drug Dosing 10.4 ml/min Est GFR ( Amer) 10.6 Est GFR (Non-Af Amer) 9.2 BUN/Creatinine Ratio 4.8 L (10-20) Glucose 116 H (70-99) mg/dl Lactate (0.4-2.0) mmol/L Calcium 9.2 (8.5-10.1) mg/dl Magnesium 1.9 (1.8-2.4) mg/dl Total Bilirubin 0.5 (0.2-1) mg/dl AST 13 L (15-37) U/L ALT 16 (12-78) U/L Alkaline Phosphatase 106 (45-117) U/L Troponin I < 0.015 (0-0.045) ng/ml Total Protein 7.3 (6.4-8.2) gm/dl Albumin 3.0 L (3.4-5.0) gm/dl Globulin 4.3 H (2.5-4.0) gm/dl Albumin/Globulin Ratio 0.7 L (0.9-2) SARS-CoV-2 Ag (Rapid) (Negative) 05/21/20 05/21/20 Range/Units 16:49 Unknown WBC (4.8-10.8) K/uL RBC (4.2-5.4) M/uL Hgb (12.0-16.0) g/dL Hct (37-47) % MCV (80-100) fL MCH (25-34) pg MCHC (32-36) g/dL RDW Std Deviation (36.4-46.3) fL RDW Coeff of Alejandra (11.5-14.5) % Plt Count (130-400) K/uL MPV (7.4-10.4) fL Immature Gran % (Auto) % Neut % (Auto) % Lymph % (Auto) % [place] % (Auto) % Eos % (Auto) % Baso % (Auto) % Neut # (Auto) (1.4-6.5) K/uL Lymph # (Auto) (1.2-3.4) K/uL [place] # (Auto) (0.11-0.59) K/uL Eos # (Auto) (0-0.5) K/uL Baso # (Auto) (0-0.2) K/uL Immature Gran # (Auto) (0.00-0.02) K/uL PT (9.0-12.0) Seconds INR (0.9-1.1) APTT (21.0-31.0) Seconds PTT Ratio Sodium (136-145) mmol/L Potassium (3.5-5.1) mmol/L Chloride (98-107) mmol/L Carbon Dioxide (21-32) mmol/L Anion Gap (3-11) BUN (7-18) mg/dl Creatinine (0.6-1.2) mg/dl Est Cr Clr Drug Dosing ml/min Est GFR ( Amer) Est GFR (Non-Af Amer) BUN/Creatinine Ratio (10-20) Glucose (70-99) mg/dl Lactate 0.8 (0.4-2.0) mmol/L Calcium (8.5-10.1) mg/dl Magnesium (1.8-2.4) mg/dl Total Bilirubin (0.2-1) mg/dl AST (15-37) U/L ALT (12-78) U/L Alkaline Phosphatase (45-117) U/L Troponin I (0-0.045) ng/ml Total Protein (6.4-8.2) gm/dl Albumin (3.4-5.0) gm/dl Globulin (2.5-4.0) gm/dl Albumin/Globulin Ratio (0.9-2) SARS-CoV-2 Ag (Rapid) Negative (Negative) Administered Medications Discontinued Medications Piperacillin Sod/Tazobactam Sod (Zosyn) 4.5 gm in 120 mls @ 240 mls/hr IV NOW ONE Stop: 05/21/20 17:55 Last Infusion: 05/21/20 18:13 Dose: 0 mls/hr Documented by: [id number] Admin: 05/21/20 17:39 Dose: 240 mls/hr Documented by: [id number] Vancomycin HCl 1,750 mg/ (Sodium Chloride) 535 mls @ 200 mls/hr IV NOW ONE Stop: 05/21/20 20:06 Last Admin: 05/21/20 19:31 Dose: 200 mls/hr Documented by: [id number] Discharge Plan Visit Data Chief Complaint: Referred by Doctor Stated Complaint: REFFERED BY [facility] ED Provider: Mau Lazaro Discharge Problem: Toe necrosis, ESRD (end stage renal disease) on dialysis, Cellulitis of foot, left, Peripheral arterial disease Forms Stand Alone Forms: [facility] Prescriptions Prescriptions: No Action lamotrigine 25 mg tablet 25 mg PO BID 30 Days Qty: 60 RF: 3 promethazine 25 mg tablet 25 mg PO TID PRN (Reason: nausea and vomiting on dialysis days) Qty: 30 RF: 3 omeprazole 40 mg capsule,delayed release(DR/EC) 40 mg PO DAILY Qty: 90 RF: 1 bumetanide 2 mg tablet 2 mg PO BID Qty: 180 RF: 1 biotin 1 mg capsule 1 mg PO BID RF: 0 ProRenal 8 mg iron-800 mcg-1,000 unit tablet 2 tab PO QDD RF: 0 Eliquis 5 mg tablet 5 mg PO BID RF: 0 labetalol 200 mg tablet See Rx Instructions .ROUTE .COMPLEX RF: 0 loperamide [Imodium A-D] 2 mg capsule 2 mg PO Q6H PRN (Reason: Diarrhea) RF: 0 hydrocodone-acetaminophen 5-325 mg tablet 1 tab PO Q12H RF: 0 oxcarbazepine 300 mg tablet See Rx Instructions .ROUTE .COMPLEX RF: 0 cetirizine [Zyrtec] 10 mg Tablet 10 mg PO QDD RF: 0 Probiotic 3 billion cell capsule 3,000 mmu cells PO BIDM RF: 0 cranberry 400 mg capsule 800 mg PO BID RF: 0 calcium acetate(phosphat bind) 667 mg capsule 667 mg PO BID RF: 0
--- NOTE | 2020-05-21 18:26 | History & Physical Report ---
Date of Service May 21, 2020 Assessment & Plan (1) ESRD (end stage renal disease) on dialysis: 75-year-old female with a past medical history of end-stage renal disease on hemodialysis Wednesday and Wednesday, obstructive sleep apnea, diabetes, hypertension, hyperlipidemia, A. fib on Eliquis, obesity, cirrhosis, who was referred to the emergency department from her PCPs office for evaluation of a necrotic left second toe thought to be secondary to peripheral arterial disease in the setting of patient with end-stage renal disease. #Left second necrotic gangrenous toe with associated left lower extremity cellulitis thought to be secondary to peripheral artery disease and diabetes Patient is unaware of the exact date that her toe began to develop an infection. However it is significantly progressed for at least the past 4 weeks. She had previously arranged to have outpatient arterial studies performed and to follow- up with Dr. Johnson in the outpatient realm. She was evaluated by her PCP today who felt that she needed to proceed to the hospital for further evaluation and management of her left lower extremity. On examination her left lower extremity demonstrates a black gangrenous toe. She describes it is painful. Dr. Johnson is aware, requesting medical management of her toe in consultation by vascular surgery. -Consult vascular surgery -On Zosyn and vancomycin -Narrow pending cultures -Daily CBC -Follow-up CMP -N.p.o. after midnight -Holding anticoagulation -Monitor left lower extremity for signs of worsening of infection #End-stage renal disease Patient with a history of end-stage renal disease on dialysis Wednesday and Wednesday, also anticoagulated with apixaban. Patient had dialysis on Wednesday, will require dialysis again this coming Wednesday. Will consult nephrology for assistance with this. -Continue Bumex 2 mg p.o. twice daily -Consult nephrology -Daily BMP and replete electrolytes as indicated #Chronic pain Takes 1 tab of hydrocodone acetaminophen p.o. every 12 hours at home. Will hold this for now and transition to IV morphine -IV morphine for analgesia #Obstructive sleep apnea -CPAP ordered #Diabetes in the setting of morbid obesity Patient with a history of diabetes, most recent hemoglobin A1c demonstrates good control. -Monitor glucose control while hospitalized -Faculty Support Coordinator on benefits of weight loss #Atrial fibrillation Currently rate controlled, will hold Eliquis for anticipated surgery -Hold Eliquis #Allergic rhinitis -Continue Zyrtec FENa: N.p.o. after midnight LR at 125 Code Status: Full DVT PPX: Holding Eliquis for anticipated surgery PT/OT: Ordered Dispo: Lottie Seymour MD PGY 2, FCM This chart was completed utilizing [employer] voice recognition software. Grammatical errors, random word insertions, pronoun errors, and in complete sentences are an occasional consequence of the system. Any questions or concerns about the content, text, or information contained within the body of this dictation should be addressed directly to the physician for clarification. (2) Peripheral arterial disease: (3) Cirrhosis: (4) Morbid obesity: (5) Obstructive sleep apnea: (6) Asymptomatic bilateral carotid artery stenosis: (7) Atrial fibrillation: (8) Diabetes: (9) HTN (hypertension): History of Present Illness 75-year-old female with a past medical history of end-stage renal disease on hem odialysis Wednesday and Wednesday, obstructive sleep apnea, diabetes, hypertension, hyperlipidemia, A. fib on Eliquis, obesity, cirrhosis, who was referred to the emergency department from her PCPs office for evaluation of a necrotic left second toe thought to be secondary to peripheral arterial disease in the setting of patient with end-stage renal disease. Patient reports a history of left foot and toe pain for the past 4 weeks progressively worsening with associated cellulitis which he states has been treated with numerous antibiotics without any significant improvement. The patient's primary care provider had made vascular surgery aware the patient, and initially scheduled her for outpatient vascular studies. Given her presentation in the office today her PCP insisted the patient present to the emergency department, vascular surgery was made aware acute worsening of the patient's lower extremity infections, recommending she be admitted for further evaluation, management and consultation. During our interview the patient confirmed the history as described above. Stating that she went to her PCPs office today and upon evaluating her foot he recommended that she proceed to the emergency department. Otherwise the patient reports she is in her usual state of health, denying constitutional symptoms including fever, chills, nausea, vomiting, diarrhea, other concerning signs or symptoms. Patient is endorsing some pain in her left foot. Patient reports tolerating her diet, stooling, sleeping well, no acute concerns, all questions were answered. On arrival to the emergency department, routine labs were obtained, a CBC demonstrated a white count of 9.54, with a neutrophil predominance, INR of 1,, BMP with a creatinine of 4.36, liver function studies normal, hypoalbuminemia with an albumin of of 3. X-ray imaging studies demonstrated no acute fracture and no radiographic evidence of acute osteomyelitis within the left foot, ultrasound Doppler studies are pending. Primary Care Provider: ALONDRA Estrella Allergies Allergy/AdvReac Type Severity Reaction Status Date / Time ANGEL Inhibitors Allergy Mild Cough Verified 05/21/20 19:45 doxycycline Allergy Mild upset Verified 05/21/20 19:45 stomach simvastatin Allergy Mild "did not Verified 05/21/20 19:45 feel well while taking" metformin Allergy Unknown does not Verified 05/21/20 19:45 remember pioglitazone Allergy Unknown ? NOT SURE Verified 05/21/20 19:45 rosiglitazone Allergy Unknown NOT SURE Verified 05/21/20 19:45 Znnxvju-Ukg-Kak Reductase AdvReac Intermediate LEGS HURT Verified 05/21/20 19:45 Inhibitor ciprofloxacin AdvReac Mild UPSET Verified 05/21/20 19:45 STOMACH levofloxacin AdvReac Mild ?NAUSEA Verified 05/21/20 19:45 escitalopram AdvReac Unknown Verified 05/21/20 19:45 homatropine AdvReac Unknown Verified 05/21/20 19:45 [From Hycodan (with homatropin)] oxycodone AdvReac Unknown Verified 05/21/20 19:45 CAT GUT SUTURES Allergy Intermediate SLOW Uncoded 05/21/20 19:45 HEALING,INFLAMED TISSUE Home Medications Medication Instructions Recorded Confirmed Type cetirizine [Zyrtec] 10 mg PO QDD 07/07/18 05/21/20 History ProRenal 2 tab PO QDD 12/19/18 05/21/20 History biotin 1 mg capsule 1 mg PO BID cap 02/01/19 05/21/20 History cranberry 400 mg capsule 800 mg PO BID 02/01/19 05/21/20 History lactobacillus combination no.4 3 3,000 mmu cells PO BIDM cap 02/01/19 05/21/20 History billion cell capsule lamotrigine 25 mg tablet 25 mg PO BID 30 Days #60 tab 01/02/20 05/21/20 Rx apixaban [Eliquis] 5 mg PO BID 01/24/20 05/21/20 History promethazine 25 mg tablet 25 mg PO TID PRN #30 tab 02/21/20 05/21/20 Rx calcium acetate(phosphat bind) 667 667 mg PO BID cap 03/12/20 05/21/20 History mg capsule bumetanide 2 mg tablet 2 mg PO BID #180 tab 05/21/20 05/21/20 Rx hydrocodone-acetaminophen 1 tab PO Q12H 05/21/20 05/21/20 History labetalol See Rx Instructions .ROUTE .COMPLEX 05/21/20 05/21/20 History loperamide [Imodium A-D] 2 mg PO Q6H PRN 05/21/20 05/21/20 History omeprazole 40 mg capsule,delayed 40 mg PO DAILY #90 cap 05/21/20 05/21/20 Rx release oxcarbazepine See Rx Instructions .ROUTE .COMPLEX 05/21/20 05/21/20 History Past Med/Surg History Medical History (Updated 05/21/20 @ 22:22 by Linsey Seymour DO) Anemia Asymptomatic bilateral carotid artery stenosis Atrial fibrillation C. difficile colitis Carpal tunnel syndrome CHF exacerbation Cholangitis Cirrhosis of liver CKD (chronic kidney disease) stage 3, GFR 30-59 ml/min DIALYSIS M/W/F [facility] Clostridium difficile infection 2015 Diabetes Diabetic nephropathy Disc degeneration, lumbar Diverticulosis DVT prophylaxis Erosive (osteo)arthritis GERD (gastroesophageal reflux disease) Gout Hiatal hernia Hip fracture, left HTN (hypertension) Hyperlipidemia Hypoalbuminemia Hypokalemia due to loss of potassium Hypomagnesemia Internal hemorrhoids Left ventricular hypertrophy Lymphedema Morbid obesity Nocturnal hypoxia Obstructive sleep apnea Osteoporosis Proteinuria Scoliosis Sleep apnea NO DEVICE Spinal stenosis Tremor Trigeminal neuralgia Vitamin B12 deficiency Vitamin D deficiency Surgical History AV fistula L upper extremity H/O knee surgery H/O tubal ligation History of carpal tunnel surgery History of Neuroplasty Decompression Median Nerve At Carpal Tunnel History of cataract surgery RT/LEFT History of cholecystectomy History of colonoscopy History of dilation and curettage History of ERCP MULTIPLE History of esophagogastroduodenoscopy (EGD) History of total knee replacement RT/LEFT Family History Daughter Breast cancer Unknown Emphysema, unspecified Other Family history non-contributory Social History Smoking Status: Never smoker Second Hand Exposure: No; Hx Alcohol Use: No Hx Substance Use: No Preferred Language: Burmese Communication Ability: Effective Visual Impairment: No Limitations Genetic Supervisor Required: No Beliefs That Will Affect Care: None marital status: Current Living Situation: Spouse current occupational status: retired Other Information That Helps Us Care for You: No Feels Safe at Home: Yes Safety Concerns: Feels Safe At This Time caffeine: Yes Seatbelt Use: always Assistive Devices: Denture - Upper, Glasses and Wheelchair Review of Systems Review of Systems: All systems reviewed & are unremarkable except as noted in HPI & below Physical Exam Physical Exam: General: In no acute distress HEENT: Normocephalic atraumatic Neck: Normal to visual inspection, trachea midline Cardiac: I did not appreciate any significant murmurs rubs or gallops, normal S1, normal S2, 1+ pedal edema, negative calf tenderness Respiratory: Clear to auscultation bilaterally with symmetrical chest expansion, no increased work of breathing, I did not appreciate any significant wheezes, rales, rhonchi GI: Bowel sounds present in all 4 quadrants MSK: Moves all extremities Skin: Bruising on her left upper extremity, rash on her left lower extremity, g angrenous toe on her left lower extremity Neuro: Alert and oriented x4 Psych: Calm and cooperative Results & Data Results & Data ([facility]) Vital Signs (Past 12 Hours) Vital Signs Temp Pulse Resp BP Pulse Ox 05/21/20 17:39 76 10 L 154/64 H 96 05/21/20 17:30 73 18 05/21/20 17:15 74 21 05/21/20 17:00 78 14 05/21/20 16:45 73 15 05/21/20 16:41 100 H 15 98 05/21/20 16:37 82 20 111/53 L 96 05/21/20 16:14 37.0 C 85 20 151/78 H 93 Laboratory Results 05/21/20 05/21/20 05/21/20 Range/Units 16:49 16:49 16:49 WBC 9.54 (4.8-10.8) K/uL RBC 3.07 L (4.2-5.4) M/uL Hgb 10.0 L (12.0-16.0) g/dL Hct 31.1 L (37-47) % MCV 101.3 H (80-100) fL MCH 32.6 (25-34) pg MCHC 32.2 (32-36) g/dL RDW Std Deviation 58.8 H (36.4-46.3) fL RDW Coeff of Alejandra 16.5 H (11.5-14.5) % Plt Count 190 (130-400) K/uL MPV 9.0 (7.4-10.4) fL Immature Gran % (Auto) 0.4 % Neut % (Auto) 80.8 % Lymph % (Auto) 11.5 % Luna % (Auto) 6.4 % Eos % (Auto) 0.7 % Baso % (Auto) 0.2 % Neut # (Auto) 7.70 H (1.4-6.5) K/uL Lymph # (Auto) 1.10 L (1.2-3.4) K/uL Luna # (Auto) 0.61 H (0.11-0.59) K/uL Eos # (Auto) 0.07 (0-0.5) K/uL Baso # (Auto) 0.02 (0-0.2) K/uL Immature Gran # (Auto) 0.04 H (0.00-0.02) K/uL PT 11.0 (9.0-12.0) Seconds INR 1.0 (0.9-1.1) APTT 35.9 H (21.0-31.0) Seconds PTT Ratio 1.3 Sodium (136-145) mmol/L Potassium (3.5-5.1) mmol/L Chloride (98-107) mmol/L Carbon Dioxide (21-32) mmol/L Anion Gap (3-11) BUN (7-18) mg/dl Creatinine (0.6-1.2) mg/dl Est Cr Clr Drug Dosing ml/min Est GFR ( Amer) Est GFR (Non-Af Amer) BUN/Creatinine Ratio (10-20) Glucose (70-99) mg/dl Lactate 0.8 (0.4-2.0) mmol/L Calcium (8.5-10.1) mg/dl Magnesium (1.8-2.4) mg/dl Total Bilirubin (0.2-1) mg/dl AST (15-37) U/L ALT (12-78) U/L Alkaline Phosphatase (45-117) U/L Troponin I (0-0.045) ng/ml Total Protein (6.4-8.2) gm/dl Albumin (3.4-5.0) gm/dl Globulin (2.5-4.0) gm/dl Albumin/Globulin Ratio (0.9-2) 05/21/20 Range/Units 16:49 WBC (4.8-10.8) K/uL RBC (4.2-5.4) M/uL Hgb (12.0-16.0) g/dL Hct (37-47) % MCV (80-100) fL MCH (25-34) pg MCHC (32-36) g/dL RDW Std Deviation (36.4-46.3) fL RDW Coeff of Alejandra (11.5-14.5) % Plt Count (130-400) K/uL MPV (7.4-10.4) fL Immature Gran % (Auto) % Neut % (Auto) % Lymph % (Auto) % Luna % (Auto) % Eos % (Auto) % Baso % (Auto) % Neut # (Auto) (1.4-6.5) K/uL Lymph # (Auto) (1.2-3.4) K/uL Luna # (Auto) (0.11-0.59) K/uL Eos # (Auto) (0-0.5) K/uL Baso # (Auto) (0-0.2) K/uL Immature Gran # (Auto) (0.00-0.02) K/uL PT (9.0-12.0) Seconds INR (0.9-1.1) APTT (21.0-31.0) Seconds PTT Ratio Sodium 132 L (136-145) mmol/L Potassium 4.0 (3.5-5.1) mmol/L Chloride 97 L (98-107) mmol/L Carbon Dioxide 27 (21-32) mmol/L Anion Gap 9.0 (3-11) BUN 21 H (7-18) mg/dl Creatinine 4.36 H (0.6-1.2) mg/dl Est Cr Clr Drug Dosing 10.4 ml/min Est GFR ( Amer) 10.6 Est GFR (Non-Af Amer) 9.2 BUN/Creatinine Ratio 4.8 L (10-20) Glucose 116 H (70-99) mg/dl Lactate (0.4-2.0) mmol/L Calcium 9.2 (8.5-10.1) mg/dl Magnesium 1.9 (1.8-2.4) mg/dl Total Bilirubin 0.5 (0.2-1) mg/dl AST 13 L (15-37) U/L ALT 16 (12-78) U/L Alkaline Phosphatase 106 (45-117) U/L Troponin I < 0.015 (0-0.045) ng/ml Total Protein 7.3 (6.4-8.2) gm/dl Albumin 3.0 L (3.4-5.0) gm/dl Globulin 4.3 H (2.5-4.0) gm/dl Albumin/Globulin Ratio 0.7 L (0.9-2) Medications Administered Current Inpatient Medications Vancomycin HCl 1,750 mg/ (Sodium Chloride) 535 mls @ 200 mls/hr IV NOW ONE Stop: 05/21/20 20:06 Miscellaneous Information (Piperacill/Tazobac Consult Active) 1 ea N/A UD PRN PRN Reason: Consult Stop: 06/20/20 17:25 Miscellaneous Information (Vancomycin Consult Active) 1 ea N/A UD PRN PRN Reason: Consult Stop: 06/20/20 17:25 Code Status & VTE Plan Code Status Full VTE Prophylaxis Plan VTE Prophylaxis will be ordered: No Supervising Physician Co-Signing Physician Notes Patient seen and examined, chart reviewed, case discussed with Dr. Seymour and I agree with assessment and plan as documented above. Briefly, patient is a 75yo female with ESRD on HD q M/W/F presenting with gangrene of left 2nd toe, cellulitis and pain. Timeline of symptoms unclear. On exam she is afebrile, HD stable, NAD Skin- black, necrotic left 2nd toe with small amount of purulent discharge, malodor, warmth/redness/tenderness on dorsum of left foot, skin on anterior alegria shiny/hairless HEENT - NC/AT, PERRL, EOMI, MMM, Neck supple Heart - +S1/S2, regular, no m/r/g Lungs - CTA Abd - +BS, soft, NT/ND Ext - AV fistula in RUE with palpable thrill, extremities warm, diminished pulses 1+ with absent pulse in left PT Neuro - nonfocal Labs and images reviewed. -Stable anemia with macrocytosis - LRR=974.3 Covid - NEGATIVE Duplex US of LLE with extensive calcified atherosclerosis in the lower extremities. Probably stenosis in the distal left popliteal artery with monophasic flow in the left calf vessels. No flow identified within the distal left posterior tibial artery X-ray - no bony involvment Assessment/Plan: 75yo female with ESRD on HD, AF on anticoagulation, DM presenting with necrotic left toe. No bony involvement. Compromised vasculature - extensive calcification in patient with ESRD -Admit to medical floor -Follow cultures -Zosyn -Vascular surgery consultation appreciated. Will keep patient NPO after midnight and hold anticoagulation for possible OR in AM -Remainder of plan as above Resident Activity Tracking Resident Involvement: Resident Care Provided Care Provided: Adult Hospital Medicine (1) Diabetes Chronic kidney disease stage: on chronic dialysis Diabetes mellitus complication detail: with chronic kidney disease Diabetes mellitus intermediate insulin use: without intermediate use (2) Atrial fibrillation Atrial fibrillation type: permanent Qualified Code(s): I48.2 - Chronic atrial fibrillation (3) HTN (hypertension) Hypertension type: essential hypertension Qualified Code(s): I10 - Essential (primary) hypertension
--- NOTE | 2020-05-21 20:08 | Ultrasound Report ---
BILATERAL LOWER EXTREMITY ARTERIAL DOPPLER ULTRASOUND CLINICAL HISTORY: Arterial insufficiency, toe necrosis. COMPARISON STUDY: Bilateral lower extremity arterial Doppler ultrasound August 05, 2007. TECHNIQUE: Grayscale, color and duplex Doppler sonography of the arterial systems of both lower extre mities was performed. FINDINGS: Ankle to brachial indices could not be obtained as the bilateral posterior tibial and dorsa lis pedis vessels were noncompressible. Abnormal digit waveforms were noted within the left first thr ough fifth toes as well as the right second and third toes. Moderate atherosclerotic plaque within ea ch lower extremity was noted. There was biphasic flow within the right common femoral, superficial fe moral and popliteal arteries. The bilateral calf vessels were difficult to visualize on this exam. Mo nophasic flow was noted within the right posterior tibial, anterior tibial, peroneal and dorsalis ped is vessels. Right peroneal artery is diminutive. Monophasic waveforms within the right calf vessels i s a new finding since exam of August 05, 2007. There was biphasic flow within the left common femoral and superficial femoral arteries. Note was mad e of an elevated peak systolic velocity of 315 cm/s within the distal left popliteal artery which sug gests a hemodynamically significant stenosis. Monophasic dampened flow was noted within the left ante rior tibial, dorsalis pedis and peroneal arteries as well as the proximal left posterior tibial arter y. Flow was not identified within the distal left posterior tibial artery. Waveforms are dampened and monophasic were compared to prior exam. IMPRESSION: 1. Extensive calcified atherosclerotic plaque within the lower extremities. Probable stenosis within the distal left popliteal artery with monophasic flow within the left calf vessels. Waveforms dampene d when compared to prior exam of August 05, 2007. No flow identified within the distal left posteri or tibial artery. 2. Monophasic flow within the right calf vessels. No evidence for a hemodynamically significant steno sis within the right common femoral, superficial femoral or popliteal arteries. ACT 112: Negative or not required by law. Electronically signed by: Dayron Cardozo M.D. 05/21/2020 8:06 PM
[2020-05-21] MEDS ORDERED: NON-FORMULARY MEDICATION (Biotin 1 mg capsule) PO SCH (22:09)
[2020-05-21] MEDS ORDERED: PROMETHAZINE HCL 25 MG TAB PO PRN (22:09)
[2020-05-21] MEDS ORDERED: MoRPHine SULFATE 2 MG/ML CARP IV PRN (22:09)
[2020-05-21] MEDS ORDERED: ONDANSETRON INJ 2 MG/ML 2 ML VIAL IV PRN (22:09)
[2020-05-21] MEDS ORDERED: MELATONIN 3 MG TAB PO PRN (22:09)
[2020-05-21] MEDS ORDERED: LACTATED RINGER'S 1,000 ML IV SCH (22:09)
[2020-05-21] MEDS: MoRPHine SULFATE 4 MG/ML 1 ML CARP\\VIAL IV PRN (22:26)
--- NOTE | 2020-05-22 00:44 | Billing Data ---
Date of Service May 21, 2020 Coding Level of Care Code 17240 Initial Inpt Care Lvl 3
[2020-05-22] MEDS: lamoTRIgine 25 MG TAB PO SCH ×3 (01:04→20:47)
[2020-05-22] MEDS: OXcarbazepine 150 MG TABLET PO SCH ×3 (01:05→20:47)
[2020-05-22] MEDS: BUMETANIDE 1 MG TAB PO SCH ×3 (01:06→19:48)
[2020-05-22] MEDS: LABETALOL HCL 200 MG TAB PO SCH ×3 (01:06→20:46)
[2020-05-22] MEDS: CALCIUM ACETATE 667 MG CAP/TAB PO SCH ×3 (01:07→19:49)
[2020-05-22] MEDS: PIPERACILLIN/TAZOBACTAM 4.5 GM in DEXTROSE 5% 100 ML IV SCH ×2 (01:07→13:01)
[2020-05-22] MEDS: MoRPHine SULFATE 4 MG/ML 1 ML CARP\\VIAL IV PRN ×3 (06:16→16:54)
[2020-05-22 07:42] LABS: Basophils # (auto) 0.02 K/uL (0-0.2); Basophils % (auto) 0.3 %; Eosinophils % (auto) 1.5 %; Hematocrit (blood only) 28.9 % (37-47); Hemoglobin 9.2 g/dL (12.0-16.0); Immature Granulocytes # (auto) 0.05 K/uL (0.00-0.02); Immature Granulocytes % (auto) 0.7 %; Lymphocytes # (auto) 0.87 K/uL (1.2-3.4); Lymphocytes % (auto) 12.7 %; Mean Corpuscular Hemoglobin 31.9 pg (25-34); Mean Corpuscular Hgb Conc 31.8 g/dL (32-36); Mean Corpuscular Volume 100.3 fL (80-100); Mean Platelet Volume 8.8 fL (7.4-10.4); Monocytes % (auto) 7.3 %; Neutrophils # (auto) 5.29 K/uL (1.4-6.5); Neutrophils % (auto) 77.5 %; Platelet Count 167 K/uL (130-400); RDW Coefficient of Variation 16.8 % (11.5-14.5); RDW Standard Deviation 60.2 fL (36.4-46.3); Red Blood Count 2.88 M/uL (4.2-5.4); White Blood Count 6.83 K/uL (4.8-10.8)
[2020-05-22] MEDS: ADVANCED PROBIOTIC 1250 MG CAPSULE PO SCH (08:05)
[2020-05-22] MEDS: PANTOprazole 40 MG TAB PO SCH (08:05)
[2020-05-22 08:50] LABS: Albumin Globulin Ratio 0.6 (0.9-2); Albumin Level 2.5 gm/dl (3.4-5.0); BUN Creatinine Ratio 5.1 (10-20); Bilirubin,Total 0.6 mg/dl (0.2-1); Calcium 8.8 mg/dl (8.5-10.1); Est GFR (African American) 8.8; Est GFR (Non-African American) 7.6; Globulin 3.9 gm/dl (2.5-4.0); Potassium 4.3 mmol/L (3.5-5.1); Total Protein 6.4 gm/dl (6.4-8.2)
--- NOTE | 2020-05-22 10:48 | XRay Report ---
XR chest 1V portable CLINICAL HISTORY: pre-op COMPARISON STUDY: 12/19/2018 FINDINGS: The heart is mildly enlarged. There is elevation of the interstitium suggesting mild pulmon tyler vascular congestion. There is no lobar consolidation. There are no pleural effusions. There are a dvanced arthritic changes within the right shoulder. There is an old ununited left humeral neck fract ure.[ IMPRESSION: 1. Old displaced ununited left humeral neck fracture 2. Cardiomegaly and mild pulmonary vascular congestion. 3. No evidence of focal pulmonary consolidation ACT 112: Negative or not required by law. Electronically signed by: Julito Gonsalves M.D. 05/22/2020 10:47 AM
--- NOTE | 2020-05-22 11:36 | Hospitalist Progress Note ---
Date of Service May 22, 2020 Assessment & Plan (1) Arteriosclerotic gangrene: 75-year-old female with a past medical history of end-stage renal disease on hemodialysis MWF, SERENITY on CPAP, DM, HTN, HLD, Afib on Eliquis, Cirrhosis, Obesity was referred to the emergency department from her PCPs office for evaluation of a necrotic left second toe thought to be secondary to peripheral arterial disease in the setting of patient with end-stage renal disease after failure of multiple outpatient rounds of several abx for cellulitis Left second necrotic gangrenous toe with associated left lower extremity cellulitis thought to be secondary to PAD and DM Patient is unaware of the exact date that her toe began to develop an infection. However it is significantly progressed for at least the past 4 weeks. She had previously arranged to have outpatient arterial studies performed and to follow- up with Dr. Johnson in the outpatient realm. She was evaluated by her PCP who felt that she needed to proceed to the hospital for further evaluation and management of her left lower extremity. On examination her left lower extremity demonstrates a black gangrenous toe. She describes it is painful. Dr. Johnson is aware, requesting medical management of her toe in consultation by vascular surgery. * Arterial study with stenosis * Consult vascular surgery -- plans for arteriography with possible balloon and stenting of left popliteal artery. Rec cont antibiotics prior to undergoing vascular intervention. Likely for intervention with arteriography on Wednesday * Continue Zosyn, Vancomycin * Blood Cultures pending * Wound culture ordered if able to obtain, although without drainage noted today and no prior cx collected * Diet ordered as no intervention until Wednesday * Podiatry consulted per rec from Dr. Johnson for possible toe amputation * Pen to yves erythema to monitor progress * Resumed Eliquis (on for afib) for now as no plans for OR just yet. Per discussion with PA, can continue Eliquis unless plans for amputation and then would need to be held prior to intervention * CXR with cardiomegaly and mild pulm vasc congestion. No sob reported although patient without much exercise tolerance/activity. * Will obtain ECHO as does not appear to have any in our system recently. Only one from 2016 with severe LVG, mild LA dilation. Does have SERENITY and pulm HTN with R heart failure per Dr. Whitley's note. * Added inflammatory markers -- elevated although has ESRD which can cause elevated sed rate -- ESR 57, CRP 7.46 * Procal 0.44 * Monitor AM labs End-stage renal disease with anemia * MWF HD patient * Nephrology on consult * To have HD this afternoon * Continue Bumex 2 mg p.o. twice daily * Daily BMP and replete electrolytes as indicated * MCV >100 and will add B12/folate with morning labs Chronic pain * Takes 1 tab of hydrocodone acetaminophen p.o. every 12 hours at home. 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 Johnson. Podiatry consultation pending (2) ESRD (end stage renal disease) on dialysis: (3) Peripheral arterial disease: (4) Cirrhosis: (5) Morbid obesity: (6) Obstructive sleep apnea: (7) Asymptomatic bilateral carotid artery stenosis: (8) Atrial fibrillation: (9) Diabetes: (10) HTN (hypertension): (11) Anemia: (12) Toe necrosis: (13) Diabetic nephropathy: Admission and Anticipated Discharge Date Admission Date: May 21, 2020 Supervising Physician Co-Signing Physician Notes PA Supervision Note: I did not personally see or examine the patient today, but I verified all smith points of BASIL Pichardo's assessment and plan with the following exceptions/additions: None Subjective Patient evaluated this afternoon. Pain to her left foot in area of necrotic second toe. Several abx outpatient without resolution. Discussed stenosis and need for intervention. Alex saw this morning and plans for intervention with angio on Wednesday and we will resume anticoagulation for now as no immediate surgery planned. HD scheduled for this afternoon. No other complaints at this time. No fever, chill, chest pain, shortness of breath, abdominal pain, nausea , vomiting or dysuria. Review of Systems Review of Systems: All systems reviewed & are unremarkable except as noted in HPI & below Physical Exam Constitutional: WD/WN, vitals as above no acute distress Eyes: + anicteric sclerae and PERRL ENMT: mmm Neck: normal visual inspection and trachea midline Respiratory: normal respiratory effort, lungs clear to auscultation Cardiovascular: Rate/Rhythm: + irregularly irregular Heart Sounds: no murmur Extremities: no edema Gastrointestinal (Abdomen): normal bowel sounds, soft, nontender, no hepatosplenomegaly Musculoskeletal: no cyanosis or clubbing, extremities motor strength 5/5 Skin: Bruising to LUE fistula with palpable thrill 2nd toe LEFT foot gangrenous toe with covering eschar surrounding erythema to dorsum of L foot -- asked nursing to yves with felt pen (improved per patient) no hair present absent LEFT pulse posterior tibial artery, decrease dp pulses L palpable in RLE NVI calves non-tender to palpation Neurologic: PERRL, EOMI, accommodation nl, no face palsy, no dysarthria Psychiatric: A+Ox3, euthymic affect Lymphatic: no cervical or axillary lymphadenopathy Results & Data Results & Data ([facility]) Vital Signs (Past 12 Hours) Vital Signs Temp Pulse Resp BP Pulse Ox 05/22/20 08:01 37.2 C 81 18 144/67 H 95 05/22/20 06:14 37.2 C Laboratory Results 05/22/20 05/22/20 05/22/20 Range/Units 12:08 10:21 10:21 WBC (4.8-10.8) K/uL RBC (4.2-5.4) M/uL Hgb (12.0-16.0) g/dL Hct (37-47) % MCV (80-100) fL MCH (25-34) pg MCHC (32-36) g/dL RDW Std Deviation (36.4-46.3) fL RDW Coeff of Alejandra (11.5-14.5) % Plt Count (130-400) K/uL MPV (7.4-10.4) fL Immature Gran % (Auto) % Neut % (Auto) % Lymph % (Auto) % [place] % (Auto) % Eos % (Auto) % Baso % (Auto) % Neut # (Auto) (1.4-6.5) K/uL Lymph # (Auto) (1.2-3.4) K/uL [place] # (Auto) (0.11-0.59) K/uL Eos # (Auto) (0-0.5) K/uL Baso # (Auto) (0-0.2) K/uL Immature Gran # (Auto) (0.00-0.02) K/uL ESR (0-21) mm/hr Sodium (136-145) mmol/L Potassium (3.5-5.1) mmol/L Chloride (98-107) mmol/L Carbon Dioxide (21-32) mmol/L Anion Gap (3-11) BUN (7-18) mg/dl Creatinine (0.6-1.2) mg/dl Est Cr Clr Drug Dosing ml/min Est GFR ( Amer) Est GFR (Non-Af Amer) BUN/Creatinine Ratio (10-20) Glucose (70-99) mg/dl POC Glucose 114 H (70-99) mg/dl Calcium (8.5-10.1) mg/dl Total Bilirubin (0.2-1) mg/dl AST (15-37) U/L ALT (12-78) U/L Alkaline Phosphatase (45-117) U/L C-Reactive Protein (0-0.29) mg/dl Total Protein (6.4-8.2) gm/dl Albumin (3.4-5.0) gm/dl Globulin (2.5-4.0) gm/dl Albumin/Globulin Ratio (0.9-2) Vitamin B12 (193-986) pg/ml Folate (>5.38) ng/ml Procalcitonin 0.44 (0-0.5) ng/ml Random Vancomycin mcg/ml Hep Bs Antigen Neg (Neg) Hep Bs Antibody Non-Immune Hep Bs Antibody, Quant 4.51 L (>or=10mIU/mL Immune) mIU/mL SARS-CoV-2 Ag (Rapid) (Negative) 05/22/20 05/22/20 05/22/20 Range/Units 10:21 10:21 10:21 WBC (4.8-10.8) K/uL RBC (4.2-5.4) M/uL Hgb (12.0-16.0) g/dL Hct (37-47) % MCV (80-100) fL MCH (25-34) pg MCHC (32-36) g/dL RDW Std Deviation (36.4-46.3) fL RDW Coeff of Alejandra (11.5-14.5) % Plt Count (130-400) K/uL MPV (7.4-10.4) fL Immature Gran % (Auto) % Neut % (Auto) % Lymph % (Auto) % [place] % (Auto) % Eos % (Auto) % Baso % (Auto) % Neut # (Auto) (1.4-6.5) K/uL Lymph # (Auto) (1.2-3.4) K/uL [place] # (Auto) (0.11-0.59) K/uL Eos # (Auto) (0-0.5) K/uL Baso # (Auto) (0-0.2) K/uL Immature Gran # (Auto) (0.00-0.02) K/uL ESR 57 H (0-21) mm/hr Sodium (136-145) mmol/L Potassium (3.5-5.1) mmol/L Chloride (98-107) mmol/L Carbon Dioxide (21-32) mmol/L Anion Gap (3-11) BUN (7-18) mg/dl Creatinine (0.6-1.2) mg/dl Est Cr Clr Drug Dosing ml/min Est GFR ( Amer) Est GFR (Non-Af Amer) BUN/Creatinine Ratio (10-20) Glucose (70-99) mg/dl POC Glucose (70-99) mg/dl Calcium (8.5-10.1) mg/dl Total Bilirubin (0.2-1) mg/dl AST (15-37) U/L ALT (12-78) U/L Alkaline Phosphatase (45-117) U/L C-Reactive Protein 7.46 H (0-0.29) mg/dl Total Protein (6.4-8.2) gm/dl Albumin (3.4-5.0) gm/dl Globulin (2.5-4.0) gm/dl Albumin/Globulin Ratio (0.9-2) Vitamin B12 529 (193-986) pg/ml Folate > 20.00 (>5.38) ng/ml Procalcitonin (0-0.5) ng/ml Random Vancomycin mcg/ml Hep Bs Antigen (Neg) Hep Bs Antibody Hep Bs Antibody, Quant (>or=10mIU/mL Immune) mIU/mL SARS-CoV-2 Ag (Rapid) (Negative) 05/22/20 05/22/20 05/22/20 Range/Units 07:02 07:02 07:02 WBC 6.83 (4.8-10.8) K/uL RBC 2.88 L (4.2-5.4) M/uL Hgb 9.2 L (12.0-16.0) g/dL Hct 28.9 L (37-47) % MCV 100.3 H (80-100) fL MCH 31.9 (25-34) pg MCHC 31.8 L (32-36) g/dL RDW Std Deviation 60.2 H (36.4-46.3) fL RDW Coeff of Alejandra 16.8 H (11.5-14.5) % Plt Count 167 (130-400) K/uL MPV 8.8 (7.4-10.4) fL Immature Gran % (Auto) 0.7 % Neut % (Auto) 77.5 % Lymph % (Auto) 12.7 % [place] % (Auto) 7.3 % Eos % (Auto) 1.5 % Baso % (Auto) 0.3 % Neut # (Auto) 5.29 (1.4-6.5) K/uL Lymph # (Auto) 0.87 L (1.2-3.4) K/uL [place] # (Auto) 0.50 (0.11-0.59) K/uL Eos # (Auto) 0.10 (0-0.5) K/uL Baso # (Auto) 0.02 (0-0.2) K/uL Immature Gran # (Auto) 0.05 H (0.00-0.02) K/uL ESR (0-21) mm/hr Sodium 132 L (136-145) mmol/L Potassium 4.3 (3.5-5.1) mmol/L Chloride 99 (98-107) mmol/L Carbon Dioxide 25 (21-32) mmol/L Anion Gap 9.0 (3-11) BUN 26 H (7-18) mg/dl Creatinine 5.07 H* D (0.6-1.2) mg/dl Est Cr Clr Drug Dosing 9.0 ml/min Est GFR ( Amer) 8.8 Est GFR (Non-Af Amer) 7.6 BUN/Creatinine Ratio 5.1 L (10-20) Glucose 96 (70-99) mg/dl POC Glucose (70-99) mg/dl Calcium 8.8 (8.5-10.1) mg/dl Total Bilirubin 0.6 (0.2-1) mg/dl AST 14 L (15-37) U/L ALT 12 (12-78) U/L Alkaline Phosphatase 86 (45-117) U/L C-Reactive Protein (0-0.29) mg/dl Total Protein 6.4 (6.4-8.2) gm/dl Albumin 2.5 L (3.4-5.0) gm/dl Globulin 3.9 (2.5-4.0) gm/dl Albumin/Globulin Ratio 0.6 L (0.9-2) Vitamin B12 (193-986) pg/ml Folate (>5.38) ng/ml Procalcitonin (0-0.5) ng/ml Random Vancomycin 22.9 mcg/ml Hep Bs Antigen (Neg) Hep Bs Antibody Hep Bs Antibody, Quant (>or=10mIU/mL Immune) mIU/mL SARS-CoV-2 Ag (Rapid) (Negative) 05/22/20 05/21/20 05/21/20 Range/Units 05:08 Unknown 21:41 WBC (4.8-10.8) K/uL RBC (4.2-5.4) M/uL Hgb (12.0-16.0) g/dL Hct (37-47) % MCV (80-100) fL MCH (25-34) pg MCHC (32-36) g/dL RDW Std Deviation (36.4-46.3) fL RDW Coeff of Alejandra (11.5-14.5) % Plt Count (130-400) K/uL MPV (7.4-10.4) fL Immature Gran % (Auto) % Neut % (Auto) % Lymph % (Auto) % [place] % (Auto) % Eos % (Auto) % Baso % (Auto) % Neut # (Auto) (1.4-6.5) K/uL Lymph # (Auto) (1.2-3.4) K/uL [place] # (Auto) (0.11-0.59) K/uL Eos # (Auto) (0-0.5) K/uL Baso # (Auto) (0-0.2) K/uL Immature Gran # (Auto) (0.00-0.02) K/uL ESR (0-21) mm/hr Sodium (136-145) mmol/L Potassium (3.5-5.1) mmol/L Chloride (98-107) mmol/L Carbon Dioxide (21-32) mmol/L Anion Gap (3-11) BUN (7-18) mg/dl Creatinine (0.6-1.2) mg/dl Est Cr Clr Drug Dosing ml/min Est GFR ( Amer) Est GFR (Non-Af Amer) BUN/Creatinine Ratio (10-20) Glucose (70-99) mg/dl POC Glucose 112 H 142 H (70-99) mg/dl Calcium (8.5-10.1) mg/dl Total Bilirubin (0.2-1) mg/dl AST (15-37) U/L ALT (12-78) U/L Alkaline Phosphatase (45-117) U/L C-Reactive Protein (0-0.29) mg/dl Total Protein (6.4-8.2) gm/dl Albumin (3.4-5.0) gm/dl Globulin (2.5-4.0) gm/dl Albumin/Globulin Ratio (0.9-2) Vitamin B12 (193-986) pg/ml Folate (>5.38) ng/ml Procalcitonin (0-0.5) ng/ml Random Vancomycin mcg/ml Hep Bs Antigen (Neg) Hep Bs Antibody Hep Bs Antibody, Quant (>or=10mIU/mL Immune) mIU/mL SARS-CoV-2 Ag (Rapid) Negative (Negative) Diagnostic Findings CXR IMPRESSION: 1. Old displaced ununited left humeral neck fracture 2. Cardiomegaly and mild pulmonary vascular congestion. 3. No evidence of focal pulmonary consolidation B/L LE ARTERIAL DUPLEX IMPRESSION: 1. Extensive calcified atherosclerotic plaque within the lower extremities. Probable stenosis within the distal left popliteal artery with monophasic flow within the left calf vessels. Waveforms dampened when compared to prior exam of August 05, 2007. No flow identified within the distal left posterior tibial artery. 2. Monophasic flow within the right calf vessels. No evidence for a hemodynamically significant stenosis within the right common femoral, superficia l femoral or popliteal arteries. PG Care Time/CCT Total # of Minutes Spent Total Time Spent with Patient: Total time spent is greater than 50% in coordination of care (as documented) at patient's floor/unit and/or counseling patient: Coding Level of Care Code 28858 Subseq Hosp Care Lvl 3 Diagnoses Arteriosclerotic gangrene I70.269 ESRD (end stage renal disease) on dialysis N18.6; Z99.2 Peripheral arterial disease I73.9 Cirrhosis K74.60 Morbid obesity E66.01 Obstructive sleep apnea G47.33 Asymptomatic bilateral carotid artery stenosis I65.23 Atrial fibrillation I48.2 Atrial fibrillation type: permanent Diabetes E11.9 Chronic kidney disease stage: on chronic dialysis Diabetes mellitus complication detail: with chronic kidney disease Diabetes mellitus technician terminal and repeater insulin use: without alf use HTN (hypertension) I10 Hypertension type: essential hypertension Anemia D64.9 Toe necrosis I96 Diabetic nephropathy E11.21 (1) Diabetes Chronic kidney disease stage: on chronic dialysis Diabetes mellitus complica tion detail: with chronic kidney disease Diabetes mellitus technician terminal and repeater insulin use: without alf use (2) Atrial fibrillation Atrial fibrillation type: permanent Qualified Code(s): I48.2 - Chronic atrial fibrillation (3) HTN (hypertension) Hypertension type: essential hypertension Qualified Code(s): I10 - Essential (primary) hypertension
--- NOTE | 2020-05-22 11:45 | Nephrology Consultation ---
Date of Consultation May 22, 2020 Assessment & Plan (1) ESRD (end stage renal disease) on dialysis: Mrs. Diaz has ESRD requiring 3x/wk HD ([facility] 4hr 2K 2.5Ca F-180NR Qb400 EDW 84.5 kg). ESRD is due to CRS. PMH also significant for AODM, HTN, gout, hyperlipidemia, SERENITY and pulmonary HTN resulting in R heart failure. Remains on Bumex but making very little urine. Clearances with HD have been at goal. Heparin free HD today. UF goal 2-2.5 L to EDW. Orders have been entered into EMR and HD RN notified. Medications appropriate for kidney function (2) Peripheral arterial disease: Vascular surgery consult pending. (3) HTN (hypertension): BP acceptable. Labetalol held prior to dialysis. (4) Toe necrosis: Medications appropriately dosed for kidney function. (5) Anemia: Hgb is < 10. Will provide TIFFANIE w/ HD today History of Present Illness Reason for Consultation: ESRD on HD Requesting Physician: Aracely Shields MD Attending Physician: Aracely Shields MD History of Present Illness Mrs. Diaz is a 75 year old white female with ESRD attributed to a history of cardiorenal syndrome. She dialyzes MWF at [facility] (3.45 hrs 2K 2.5Ca F- 180NR Qb400 EDW 82.5 kg). Her medical history is also significant for AODM, HTN, gout, hyperlipidemia, SERENITY and pulmonary HTN resulting in R heart failure. Kalyani was admitted to [facility] yesterday for management of a necrotic left second toe with associated peripheral arterial disease having failed outpatient management. Kalyani has been struggling with this for ~1 month. Vascular surgery consultation obtained this morning. Kalyani completed her scheduled HD treatment on Wednesday without complications. She has been tolerating HD well. AVF functioning well with adequate Qb and good clearance. EDW has been 84.5 kg. Kalyani left treatment on Wednesday at 84 kg after UF 2 L. Allergies Allergy/AdvReac Type Severity Reaction Status Date / Time ANGEL Inhibitors Allergy Mild Cough Verified 05/21/20 19:45 doxycycline Allergy Mild upset Verified 05/21/20 19:45 stomach simvastatin Allergy Mild "did not Verified 05/21/20 19:45 feel well while taking" metformin Allergy Unknown does not Verified 05/21/20 19:45 remember pioglitazone Allergy Unknown ? NOT SURE Verified 05/21/20 19:45 rosiglitazone Allergy Unknown NOT SURE Verified 05/21/20 19:45 Wtedaay-Maf-Ofl Reductase AdvReac Intermediate LEGS HURT Verified 05/21/20 19:45 Inhibitor ciprofloxacin AdvReac Mild UPSET Verified 05/21/20 19:45 STOMACH levofloxacin AdvReac Mild ?NAUSEA Verified 05/21/20 19:45 escitalopram AdvReac Unknown Verified 05/21/20 19:45 homatropine AdvReac Unknown Verified 05/21/20 19:45 [From Hycodan (with homatropin)] oxycodone AdvReac Unknown Verified 05/21/20 19:45 CAT GUT SUTURES Allergy Intermediate SLOW Uncoded 05/21/20 19:45 HEALING,INFLAMED TISSUE Home Medications Medication Instructions Recorded Confirmed Type cetirizine [Zyrtec] 10 mg PO QDD 07/07/18 05/21/20 History ProRenal 2 tab PO QDD 12/19/18 05/21/20 History biotin 1 mg capsule 1 mg PO BID cap 02/01/19 05/21/20 History cranberry 400 mg capsule 800 mg PO BID 02/01/19 05/21/20 History lactobacillus combination no.4 3 3,000 mmu cells PO BIDM cap 02/01/19 05/21/20 History billion cell capsule lamotrigine 25 mg tablet 25 mg PO BID 30 Days #60 tab 01/02/20 05/21/20 Rx apixaban [Eliquis] 5 mg PO BID 01/24/20 05/21/20 History promethazine 25 mg tablet 25 mg PO TID PRN #30 tab 02/21/20 05/21/20 Rx calcium acetate(phosphat bind) 667 667 mg PO BID cap 03/12/20 05/21/20 History mg capsule bumetanide 2 mg tablet 2 mg PO BID #180 tab 05/21/20 05/21/20 Rx hydrocodone-acetaminophen 1 tab PO Q12H 05/21/20 05/21/20 History labetalol See Rx Instructions .ROUTE .COMPLEX 05/21/20 05/21/20 History loperamide [Imodium A-D] 2 mg PO Q6H PRN 05/21/20 05/21/20 History omeprazole 40 mg capsule,delayed 40 mg PO DAILY #90 cap 05/21/20 05/21/20 Rx release oxcarbazepine See Rx Instructions .ROUTE .COMPLEX 05/21/20 05/21/20 History Patient History Medical History Anemia Asymptomatic bilateral carotid artery stenosis Atrial fibrillation C. difficile colitis Carpal tunnel syndrome CHF exacerbation Cholangitis Cirrhosis of liver CKD (chronic kidney disease) stage 3, GFR 30-59 ml/min DIALYSIS M/W/F [place] Clostridium difficile infection 2015 Diabetes Diabetic nephropathy Disc degeneration, lumbar Diverticulosis DVT prophylaxis Erosive (osteo)arthritis GERD (gastroesophageal reflux disease) Gout Hiatal hernia Hip fracture, left HTN (hypertension) Hyperlipidemia Hypoalbuminemia Hypokalemia due to loss of potassium Hypomagnesemia Internal hemorrhoids Left ventricular hypertrophy Lymphedema Morbid obesity Nocturnal hypoxia Obstructive sleep apnea Osteoporosis Proteinuria Scoliosis Sleep apnea NO DEVICE Spinal stenosis Tremor Trigeminal neuralgia Vitamin B12 deficiency Vitamin D deficiency Surgical History AV fistula L upper extremity H/O knee surgery H/O tubal ligation History of carpal tunnel surgery History of Neuroplasty Decompression Median Nerve At Carpal Tunnel History of cataract surgery RT/LEFT History of cholecystectomy History of colonoscopy History of dilation and curettage History of ERCP MULTIPLE History of esophagogastroduodenoscopy (EGD) History of total knee replacement RT/LEFT Family History Daughter Breast cancer Unknown Emphysema, unspecified Other Family history non-contributory Social History Smoking Status: Never smoker Second Hand Exposure: No; Hx Alcohol Use: No Hx Substance Use: No Preferred Language: [place] Communication Ability: Effective Visual Impairment: No Limitations [employer] Coord[employer] Required: No Beliefs That Will Affect Care: None marital status: Current Living Situation: Spouse current occupational status: retired Other Information That Helps Us Care for You: No Feels Safe at Home: Yes Safety Concerns: Feels Safe At This Time caffeine: Yes Seatbelt Use: always Assistive Devices: Denture - Upper and Denture - Lower Review of Systems Review of Systems: All systems reviewed & are unremarkable except as noted in HPI & below Constitutional: no weight loss, no weight gain and no problem reported Eyes: no problem reported Ear, Nose, Mouth, Throat: no problem reported Respiratory: no problem reported Cardiovascular: no problem reported Gastrointestinal: no problem reported Musculoskeletal: no problem reported Integumentary: no problem reported Neurologic: no problem reported Psychiatric: no problem reported Endocrine: no problem reported Hematologic / Lymphatic: no problem reported Physical Exam Constitutional: well developed; no acute distress Eyes: no scleral abnormality and no corneal abnormality ENMT: Mouth: no oral mucosal abnormality and oral mucous membranes not dry Neck: normal visual inspection and trachea midline Respiratory: normal respiratory effort Auscultation: lungs clear to auscultation bilaterally Cardiovascular: Rate/Rhythm: regular rate Heart Sounds: normal S1 and normal S2 Extremities: no edema Musculoskeletal: Extremities: no cyanosis and no clubbing Skin: normal turgor; no lesions Neurologic: Motor/Sensory: no tremor and no asterixis Psychiatric: Orientation: alert and oriented x 3 Results & Data ([facility]) Vital Signs (Past 12 Hours) Vital Signs Temp Pulse Resp BP Pulse Ox 05/22/20 08:01 37.2 C 81 18 144/67 H 95 05/22/20 06:14 37.2 C Laboratory Results Laboratory Results - last 24 hr 05/21/20 05/21/20 05/21/20 16:49 16:49 16:49 WBC 9.54 RBC 3.07 L Hgb 10.0 L Hct 31.1 L MCV 101.3 H MCH 32.6 MCHC 32.2 RDW Std Deviation 58.8 H RDW Coeff of Alejandra 16.5 H Plt Count 190 MPV 9.0 Immature Gran % (Auto) 0.4 Neut % (Auto) 80.8 Lymph % (Auto) 11.5 [place] % (Auto) 6.4 Eos % (Auto) 0.7 Baso % (Auto) 0.2 Neut # (Auto) 7.70 H Lymph # (Auto) 1.10 L [place] # (Auto) 0.61 H Eos # (Auto) 0.07 Baso # (Auto) 0.02 Immature Gran # (Auto) 0.04 H ESR PT 11.0 INR 1.0 APTT 35.9 H PTT Ratio 1.3 Sodium 132 L Potassium 4.0 Chloride 97 L Carbon Dioxide 27 Anion Gap 9.0 BUN 21 H Creatinine 4.36 H Est Cr Clr Drug Dosing 10.4 Est GFR ( Amer) 10.6 Est GFR (Non-Af Amer) 9.2 BUN/Creatinine Ratio 4.8 L Glucose 116 H POC Glucose Lactate Calcium 9.2 Magnesium 1.9 Total Bilirubin 0.5 AST 13 L ALT 16 Alkaline Phosphatase 106 Troponin I < 0.015 C-Reactive Protein Total Protein 7.3 Albumin 3.0 L Globulin 4.3 H Albumin/Globulin Ratio 0.7 L Vitamin B12 Folate Procalcitonin Random Vancomycin Hep Bs Antigen Hep Bs Antibody Hep Bs Antibody, Quant SARS-CoV-2 Ag (Rapid) 05/21/20 05/21/20 05/21/20 16:49 21:41 Unknown WBC RBC Hgb Hct MCV MCH MCHC RDW Std Deviation RDW Coeff of Alejandra Plt Count MPV Immature Gran % (Auto) Neut % (Auto) Lymph % (Auto) [place] % (Auto) Eos % (Auto) Baso % (Auto) Neut # (Auto) Lymph # (Auto) [place] # (Auto) Eos # (Auto) Baso # (Auto) Immature Gran # (Auto) ESR PT INR APTT PTT Ratio Sodium Potassium Chloride Carbon Dioxide Anion Gap BUN Creatinine Est Cr Clr Drug Dosing Est GFR ( Amer) Est GFR (Non-Af Amer) BUN/Creatinine Ratio Glucose POC Glucose 142 H Lactate 0.8 Calcium Magnesium Total Bilirubin AST ALT Alkaline Phosphatase Troponin I C-Reactive Protein Total Protein Albumin Globulin Albumin/Globulin Ratio Vitamin B12 Folate Procalcitonin Random Vancomycin Hep Bs Antigen Hep Bs Antibody Hep Bs Antibody, Quant SARS-CoV-2 Ag (Rapid) Negative 05/22/20 05/22/20 05/22/20 05:08 07:02 07:02 WBC 6.83 RBC 2.88 L Hgb 9.2 L Hct 28.9 L MCV 100.3 H MCH 31.9 MCHC 31.8 L RDW Std Deviation 60.2 H RDW Coeff of Alejandra 16.8 H Plt Count 167 MPV 8.8 Immature Gran % (Auto) 0.7 Neut % (Auto) 77.5 Lymph % (Auto) 12.7 [place] % (Auto) 7.3 Eos % (Auto) 1.5 Baso % (Auto) 0.3 Neut # (Auto) 5.29 Lymph # (Auto) 0.87 L [place] # (Auto) 0.50 Eos # (Auto) 0.10 Baso # (Auto) 0.02 Immature Gran # (Auto) 0.05 H ESR PT INR APTT PTT Ratio Sodium 132 L Potassium 4.3 Chloride 99 Carbon Dioxide 25 Anion Gap 9.0 BUN 26 H Creatinine 5.07 H* D Est Cr Clr Drug Dosing 9.0 Est GFR ( Amer) 8.8 Est GFR (Non-Af Amer) 7.6 BUN/Creatinine Ratio 5.1 L Glucose 96 POC Glucose 112 H Lactate Calcium 8.8 Magnesium Total Bilirubin 0.6 AST 14 L ALT 12 Alkaline Phosphatase 86 Troponin I C-Reactive Protein Total Protein 6.4 Albumin 2.5 L Globulin 3.9 Albumin/Globulin Ratio 0.6 L Vitamin B12 Folate Procalcitonin Random Vancomycin Hep Bs Antigen Hep Bs Antibody Hep Bs Antibody, Quant SARS-CoV-2 Ag (Rapid) 05/22/20 05/22/20 05/22/20 07:02 10:21 10:21 WBC RBC Hgb Hct MCV MCH MCHC RDW Std Deviation RDW Coeff of Alejandra Plt Count MPV Immature Gran % (Auto) Neut % (Auto) Lymph % (Auto) [place] % (Auto) Eos % (Auto) Baso % (Auto) Neut # (Auto) Lymph # (Auto) [place] # (Auto) Eos # (Auto) Baso # (Auto) Immature Gran # (Auto) ESR 57 H PT INR APTT PTT Ratio Sodium Potassium Chloride Carbon Dioxide Anion Gap BUN Creatinine Est Cr Clr Drug Dosing Est GFR ( Amer) Est GFR (Non-Af Amer) BUN/Creatinine Ratio Glucose POC Glucose Lactate Calcium Magnesium Total Bilirubin AST ALT Alkaline Phosphatase Troponin I C-Reactive Protein Total Protein Albumin Globulin Albumin/Globulin Ratio Vitamin B12 Pending Folate Pending Procalcitonin Random Vancomycin 22.9 Hep Bs Antigen Hep Bs Antibody Hep Bs Antibody, Quant SARS-CoV-2 Ag (Rapid) 05/22/20 05/22/20 05/22/20 10:21 10:21 10:21 WBC RBC Hgb Hct MCV MCH MCHC RDW Std Deviation RDW Coeff of Alejandra Plt Count MPV Immature Gran % (Auto) Neut % (Auto) Lymph % (Auto) [place] % (Auto) Eos % (Auto) Baso % (Auto) Neut # (Auto) Lymph # (Auto) [place] # (Auto) Eos # (Auto) Baso # (Auto) Immature Gran # (Auto) ESR PT INR APTT PTT Ratio Sodium Potassium Chloride Carbon Dioxide Anion Gap BUN Creatinine Est Cr Clr Drug Dosing Est GFR ( Amer) Est GFR (Non-Af Amer) BUN/Creatinine Ratio Glucose POC Glucose Lactate Calcium Magnesium Total Bilirubin AST ALT Alkaline Phosphatase Troponin I C-Reactive Protein 7.46 H Total Protein Albumin Globulin Albumin/Globulin Ratio Vitamin B12 Folate Procalcitonin 0.44 Random Vancomycin Hep Bs Antigen Pending Hep Bs Antibody Pending Hep Bs Antibody, Quant Pending SARS-CoV-2 Ag (Rapid) PG Care Time/CCT Total # of Minutes Spent Total Time Spent with Patient: Total time spent is greater than 50% in coordination of care (as documented) at patient's floor/unit and/or counseling patient: Coding Level of Care Code 79877 Inpt Consult Level 4 Diagnoses ESRD (end stage renal disease) on dialysis N18.6; Z99.2 Peripheral arterial disease I73.9 HTN (hypertension) I10 Hypertension type: essential hypertension Toe necrosis I96 Anemia D64.9 (1) HTN (hypertension) Hypertension type: essential hypertension Qualified Code(s): I10 - Essential (primary) hypertension
[2020-05-22] MEDS ORDERED: EPOETIN ALFA 10,000 UNITS/ML VIAL IV SCH (12:00)
[2020-05-22] MEDS ORDERED: HYDROmorphone INJ 0.5 MG/0.5 ML SYR IV PRN (12:06)
[2020-05-22] MEDS: HYDROCODONE/ACETAMOPHEN 5/325MG TAB PO PRN ×2 (12:20→20:52)
[2020-05-22 12:40] LABS: Folate (Folic Acid) > 20.00 ng/ml (>5.38); Vitamin B12 529 pg/ml (193-986)
--- NOTE | 2020-05-22 13:17 | Consultation ---
Date of Consultation May 22, 2020 Assessment & Plan (1) Arteriosclerotic gangrene: Being that the gangrene of the left second toe is dry I would paint the second toe with Betadine. To give a better chance of healing we recommend arteriography with possible balloon and stenting of left popliteal artery. I recommended she receive a course of antibiotics prior to undergoing vascular intervention. Most likely will go ahead with arteriography on Wednesday with intervention. Would also recommend consultation with podiatry about amputation of the left second toe. Thank you very much for letting us participate in the care of this patient. History of Present Illness Reason for Consultation: Gangrene left second toe Attending Physician: Aracely Shields MD History of Present Illness This is a 75-year-old female with a past medical history of end-stage renal disease on hemodialysis Wednesday and Wednesday, obstructive sleep apnea, diabetes, hypertension, hyperlipidemia, A. fib on Eliquis, obesity, and cirrhosis. She developed color change in the left second toe she describes approximately 4 weeks ago. Is now progressed to gangrene of the left second toe. There is mild erythema on the dorsum of the foot. She claims that it is decreased since yesterday. The toe has not been draining. Noninvasives done in the arterial system of the left leg suggests a popliteal artery stenosis. Allergies Allergy/AdvReac Type Severity Reaction Status Date / Time ANGEL Inhibitors Allergy Mild Cough Verified 05/21/20 19:45 doxycycline Allergy Mild upset Verified 05/21/20 19:45 stomach simvastatin Allergy Mild "did not Verified 05/21/20 19:45 feel well while taking" metformin Allergy Unknown does not Verified 05/21/20 19:45 remember pioglitazone Allergy Unknown ? NOT SURE Verified 05/21/20 19:45 rosiglitazone Allergy Unknown NOT SURE Verified 05/21/20 19:45 Uncodes-Mck-Qop Reductase AdvReac Intermediate LEGS HURT Verified 05/21/20 19:45 Inhibitor ciprofloxacin AdvReac Mild UPSET Verified 05/21/20 19:45 STOMACH levofloxacin AdvReac Mild ?NAUSEA Verified 05/21/20 19:45 escitalopram AdvReac Unknown Verified 05/21/20 19:45 homatropine AdvReac Unknown Verified 05/21/20 19:45 [From Hycodan (with homatropin)] oxycodone AdvReac Unknown Verified 05/21/20 19:45 CAT GUT SUTURES Allergy Intermediate SLOW Uncoded 05/21/20 19:45 HEALING,INFLAMED TISSUE Home Medications Medication Instructions Recorded Confirmed Type cetirizine [Zyrtec] 10 mg PO QDD 07/07/18 05/21/20 History ProRenal 2 tab PO QDD 12/19/18 05/21/20 History biotin 1 mg capsule 1 mg PO BID cap 02/01/19 05/21/20 History cranberry 400 mg capsule 800 mg PO BID 02/01/19 05/21/20 History lactobacillus combination no.4 3 3,000 mmu cells PO BIDM cap 02/01/19 05/21/20 History billion cell capsule lamotrigine 25 mg tablet 25 mg PO BID 30 Days #60 tab 01/02/20 05/21/20 Rx apixaban [Eliquis] 5 mg PO BID 01/24/20 05/21/20 History promethazine 25 mg tablet 25 mg PO TID PRN #30 tab 02/21/20 05/21/20 Rx calcium acetate(phosphat bind) 667 667 mg PO BID cap 03/12/20 05/21/20 History mg capsule bumetanide 2 mg tablet 2 mg PO BID #180 tab 05/21/20 05/21/20 Rx hydrocodone-acetaminophen 1 tab PO Q12H 05/21/20 05/21/20 History labetalol See Rx Instructions .ROUTE .COMPLEX 05/21/20 05/21/20 History loperamide [Imodium A-D] 2 mg PO Q6H PRN 05/21/20 05/21/20 History omeprazole 40 mg capsule,delayed 40 mg PO DAILY #90 cap 05/21/20 05/21/20 Rx release oxcarbazepine See Rx Instructions .ROUTE .COMPLEX 05/21/20 05/21/20 History Patient History Medical History Anemia Asymptomatic bilateral carotid artery stenosis Atrial fibrillation C. difficile colitis Carpal tunnel syndrome CHF exacerbation Cholangitis Cirrhosis of liver CKD (chronic kidney disease) stage 3, GFR 30-59 ml/min DIALYSIS M/W/F [place] Clostridium difficile infection 2015 Diabetes Diabetic nephropathy Disc degeneration, lumbar Diverticulosis DVT prophylaxis Erosive (osteo)arthritis GERD (gastroesophageal reflux disease) Gout Hiatal hernia Hip fracture, left HTN (hypertension) Hyperlipidemia Hypoalbuminemia Hypokalemia due to loss of potassium Hypomagnesemia Internal hemorrhoids Left ventricular hypertrophy Lymphedema Morbid obesity Nocturnal hypoxia Obstructive sleep apnea Osteoporosis Proteinuria Scoliosis Sleep apnea NO DEVICE Spinal stenosis Tremor Trigeminal neuralgia Vitamin B12 deficiency Vitamin D deficiency Surgical History AV fistula L upper extremity H/O knee surgery H/O tubal ligation History of carpal tunnel surgery History of Neuroplasty Decompression Median Nerve At Carpal Tunnel History of cataract surgery RT/LEFT History of cholecystectomy History of colonoscopy History of dilation and curettage History of ERCP MULTIPLE History of esophagogastroduodenoscopy (EGD) History of total knee replacement RT/LEFT Family History Daughter Breast cancer Unknown Emphysema, unspecified Other Family history non-contributory Social History Smoking Status: Never smoker Second Hand Exposure: No; Hx Alcohol Use: No Hx Substance Use: No Preferred Language: [place] Communication Ability: Effective Visual Impairment: No Limitations Rn Medicare Required: No Beliefs That Will Affect Care: None marital status: Current Living Situation: Spouse current occupational status: retired Other Information That Helps Us Care for You: No Feels Safe at Home: Yes Safety Concerns: Feels Safe At This Time caffeine: Yes Seatbelt Use: always Assistive Devices: Denture - Upper and Denture - Lower Review of Systems Review of Systems: All systems reviewed & are unremarkable except as noted in HPI & below Physical Exam Constitutional: well developed and well nourished Respiratory: normal respiratory effort; no respiratory distress Cardiovascular: Rate/Rhythm: regular rate and regular rhythm Vessels: femoral pulses present; + posterior tibial pulses abnormal and + dorsalis pedis pulses abnormal Extremities: normal capillary refill (Mildly reduced), + edema and + AV fistula Musculoskeletal: Extremities: extremities normal to inspection (Except for dry gangrene of the left second toe) Psychiatric: Orientation: alert and oriented x 3 Results & Data ([facility]) Vital Signs (Past 12 Hours) Vital Signs Temp Pulse Resp BP Pulse Ox 05/22/20 08:01 37.2 C 81 18 144/67 H 95 05/22/20 06:14 37.2 C
--- NOTE | 2020-05-22 14:10 | Pharmacy Report ---
Pharmacy Abx Dose Short Note - Date of Service May 22, 2020 - Assessment & Plan Assessment 75 year old F ordered empiric broad spectrum antibiotics with vancomycin and Zosyn for treatment of left lower extremity cellulitis secondary to PAD and DM. Patient has ESRD requiring hemodialysis, current schedule is Wednesday, Wednesday, and Wednesday. Hemodialysis scheduled for today. Vascular surgery consulted - recommends course of antibiotics prior to undergoing vascular intervention w/ consideration for amputation. ESR and CRP both elevated at 57 mm/hr and 7.6 mg/dL respectively. Microbiology: - Blood cultures x 2: pending Plan Vancomycin * Patient received one-time vancomycin 1750 mg (21 mg/kg) IV dose yesterday at 1931 * Random level of 22.9 mcg/mL - will give 500 mg dose following today's hemodialysis session * Goal trough level for cellulitis : 10 to 20 mcg/mL * Follow-up random level to be ordered prior to HD on Wednesday Zosyn * 4.5 g IV q12h - appropriate based on BMI and ESRD Pharmacy will continue to follow and will adjust dose/frequency as necessary. Thank you.
[2020-05-22 16:23] LABS: Hepatitis B Surface Ab Quant 4.51 mIU/mL (>or=10mIU/mL Immune); Hepatitis B Surface Antibody Non-Immune
[2020-05-22] MEDS ORDERED: NON-FORMULARY MEDICATION (Vit B,C-Iron Fum-Fa-D3-Zinc Ox [Prorenal] 8 mg iron-800 mcg-1,00 PO SCH (16:30)
[2020-05-22 16:31] LABS: Hepatitis B Surf Ag Rflx Conf Neg (Neg)
[2020-05-22] MEDS ORDERED: VANCOMYCIN HCL 500 MG in SODIUM CHLORIDE 0.9% 250 ML IV ONE (18:00)
[2020-05-22] MEDS: CETIRIZINE HCL 10 MG TABLET PO SCH (19:48)
[2020-05-22] MEDS ORDERED: APIXABAN 2.5 MG TAB PO SCH ×2 (21:00)
[2020-05-22] MEDS ORDERED: APIXABAN 5 MG TABLET PO SCH (21:00)
--- NOTE | 2020-05-22 22:13 | Electrocardiogram Report ---
Test Reason : Blood Pressure : / mmHG Vent. Rate : 079 BPM Atrial Rate : 117 BPM P-R Int : 000 ms QRS Dur : 080 ms QT Int : 402 ms P-R-T Axes : 000 085 034 degrees QTc Int : 460 ms Poor data quality, interpretation may be adversely affected Atrial fibrillation Low voltage QRS Septal infarct (cited on or before 21-MAY-2020) Abnormal ECG When compared with ECG of 14-MAY-2019 14:47, QRS axis Shifted left Confirmed by Cas Cobos ([id number]) on 05/22/2020 10:13:29 PM Referred By: Teresita East Confirmed By:Cas Cobos
[2020-05-22] MEDS ORDERED: oxyCODONE HCL IR 5 MG TAB (IMMEDIATE RELEASE) PO STA (23:46)
[2020-05-23] MEDS: PIPERACILLIN/TAZOBACTAM 4.5 GM in DEXTROSE 5% 100 ML IV SCH ×2 (02:55→14:37)
[2020-05-23] MEDS: PANTOprazole 40 MG TAB PO SCH (09:07)
[2020-05-23] MEDS: ADVANCED PROBIOTIC 1250 MG CAPSULE PO SCH (09:07)
[2020-05-23] MEDS: APIXABAN 5 MG TABLET PO SCH ×2 (09:08→20:29)
[2020-05-23] MEDS: BUMETANIDE 1 MG TAB PO SCH ×2 (09:08→16:18)
[2020-05-23] MEDS: lamoTRIgine 25 MG TAB PO SCH ×2 (09:08→20:29)
[2020-05-23] MEDS: CALCIUM ACETATE 667 MG CAP/TAB PO SCH ×2 (09:08→16:18)
[2020-05-23] MEDS: LABETALOL HCL 200 MG TAB PO SCH ×3 (09:10→20:28)
[2020-05-23] MEDS: OXcarbazepine 150 MG TABLET PO SCH ×2 (09:10→20:28)
[2020-05-23] MEDS: ACETAMINOPHEN 325 MG TAB PO PRN ×2 (09:20→18:58)
[2020-05-23] MEDS: HYDROCODONE/ACETAMOPHEN 5/325MG TAB PO PRN (09:20)
--- NOTE | 2020-05-23 10:14 | Hospitalist Progress Note ---
Date of Service May 23, 2020 Assessment & Plan (1) Arteriosclerotic gangrene: 75-year-old female with a past medical history of end-stage renal disease on hemodialysis MWF, SERENITY on CPAP, DM, HTN, HLD, Afib on Eliquis, Cirrhosis, Obesity was referred to the emergency department from her PCPs office for evaluation of a necrotic left second toe thought to be secondary to peripheral arterial disease in the setting of patient with end-stage renal disease after failure of multiple outpatient rounds of several abx for cellulitis Left second necrotic gangrenous toe with associated left lower extremity cellulitis thought to be secondary to PAD and DM Patient is unaware of the exact date that her toe began to develop an infection. However it is significantly progressed for at least the past 4 weeks. She had previously arranged to have outpatient arterial studies performed and to follow- up with Dr. Johnson in the outpatient realm. She was evaluated by her PCP who felt that she needed to proceed to the hospital for further evaluation and management of her left lower extremity. On examination her left lower extremity demonstrates a black gangrenous toe. She describes it is painful. Dr. Johnson is aware, requesting medical management of her toe in consultation by vascular surgery. * Arterial study with stenosis * Consult vascular surgery -- plans for arteriography with possible balloon and stenting of left popliteal artery. Rec cont antibiotics prior to undergoing vascular intervention. Likely for intervention with arteriography on Wednesday * Continue Zosyn, Vancomycin * Blood Cultures pending * Wound culture ordered if able to obtain, although without drainage noted today and no prior cx collected * Diet ordered as no intervention until Wednesday * Pen to yves erythema to monitor progress -- improving cellulitis * CXR with cardiomegaly and mild pulm vasc congestion. No sob reported although patient without much exercise tolerance/activity. * Added inflammatory markers -- elevated although has ESRD which can cause elevated sed rate -- ESR 57, CRP 7.46 * Procal 0.44 * Will obtain ECHO as does not appear to have any in our system recently (Only one from 2016 with severe LVG, mild LA dilation. Does have SERENITY and pulm HTN with R heart failure per Dr. Whitley's note) * --> ECHO pending * Resumed Eliquis (on for afib) for now as no plans for OR just yet. Per discussion with PA, can continue Eliquis for now but will need to re-eval holding prior to amputation wednesday * Podiatry consulted per rec from Dr. Johnson for possible toe amputation -- agrees with proposed 2nd digit amputation * Culture from 2nd great toe -- pin-point growth, reincubating * Monitor AM labs End-stage renal disease with anemia * MWF HD patient * Nephrology on consult * Had HD 05/22 for 1.1L * Continue Bumex 2 mg p.o. twice daily * Daily BMP and replete electrolytes as indicated * MCV >100 -- B12 529 , FOlate >20. F/u outpt Chronic pain * Takes 1 tab of hydrocodone acetaminophen p.o. every 12 hours at home. * This was held and transitioned to IV morphine per admitting provider although patient states this was not as helpful for pain control at all -- discontinued given patient with cirrhosis * Ordered oxycodone PO which was reportedly very helpful and will continue to utilize this for pain control (listed as allergy but patient states she doesn't recall any specific issue) -- continue prn Obstructive sleep apnea * CPAP ordered Diabetes in the setting of morbid obesity * Patient with a history of diabetes, most recent hemoglobin A1c demonstrates good control at 4.6 * Monitor glucose control while hospitalized * Hide Splitter on benefits of weight loss * BSGs acceptable on POC Atrial fibrillation * Currently rate controlled, Eliquis held for anticipated surgery * Resumed Eliquis as no surgery today * Continue labetalol 200mg Sun/Tues/Thurs/Sat and 200mg BID MWF Allergic rhinitis * Continue Zyrtec GERD * On omeprazole 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 Johnson Dispo: continue to monitor -- plans for intervention on Wednesday with Dr. Johnson (2) ESRD (end stage renal disease) on dialysis: (3) Peripheral arterial disease: (4) Cirrhosis: (5) Morbid obesity: (6) Obstructive sleep apnea: (7) Asymptomatic bilateral carotid artery stenosis: (8) Atrial fibrillation: (9) Diabetes: (10) HTN (hypertension): (11) Anemia: (12) Toe necrosis: (13) Diabetic nephropathy: Admission and Anticipated Discharge Date Admission Date: May 21, 2020 Supervising Physician Co-Signing Physician Notes PA Supervision Note: I did not personally see or examine the patient today, but I verified all smith points of BASIL Pichardo's assessment and plan with the following exceptions/additions: None Subjective Patient evaluated this morning. Feeling well. Oxycodone effective at pain control, despite being listed as an allergy. Eating/drinking without difficulty. Saw podiatry this morning. Plans for OR on Wednesday for intervention/amputation. Had HD yesterday, tolerated well. No fever, chills, chest pain, shortness of breath, abdominal pain at this time. Had large BM this morning. Review of Systems Review of Systems: All systems reviewed & are unremarkable except as noted in HPI & below Physical Exam Constitutional: WD/WN, vitals as above no acute distress Eyes: + anicteric sclerae and PERRL ENMT: Ears: no hearing impairment Neck: normal visual inspection and trachea midline Respiratory: normal respiratory effort, lungs clear to auscultation Cardiovascular: Rate/Rhythm: + irregularly irregular Heart Sounds: no murmur Extremities: no edema Gastrointestinal (Abdomen): normal bowel sounds, soft, nontender, no hepatosplenomegaly Musculoskeletal: no cyanosis or clubbing, extremities motor strength 5/5 Skin: Bruising to LUE fistula with palpable thrill 2nd toe LEFT foot gangrenous toe with covering eschar surrounding erythema to dorsum of L foot -- well within marking placed 05/22 no hair present absent LEFT pulse posterior tibial artery, decrease dp pulses L palpable in RLE NVI calves non-tender to palpation Neurologic: PERRL, EOMI, accommodation nl, no face palsy, no dysarthria Psychiatric: A+Ox3, euthymic affect Lymphatic: no cervical or axillary lymphadenopathy Results & Data Results & Data ([facility]) Vital Signs (Past 12 Hours) Vital Signs Temp Pulse Resp BP Pulse Ox 05/23/20 06:56 37.2 C 87 19 159/77 H 95 05/23/20 00:27 37.2 C 75 16 123/74 96 Laboratory Results 05/23/20 05/23/20 05/23/20 Range/Units 12:21 10:11 10:11 WBC (4.8-10.8) K/uL RBC (4.2-5.4) M/uL Hgb (12.0-16.0) g/dL Hct (37-47) % MCV (80-100) fL MCH (25-34) pg MCHC (32-36) g/dL RDW Std Deviation (36.4-46.3) fL RDW Coeff of Alejandra (11.5-14.5) % Plt Count (130-400) K/uL MPV (7.4-10.4) fL Immature Gran % (Auto) % Neut % (Auto) % Lymph % (Auto) % [place] % (Auto) % Eos % (Auto) % Baso % (Auto) % Neut # (Auto) (1.4-6.5) K/uL Lymph # (Auto) (1.2-3.4) K/uL [place] # (Auto) (0.11-0.59) K/uL Eos # (Auto) (0-0.5) K/uL Baso # (Auto) (0-0.2) K/uL Immature Gran # (Auto) (0.00-0.02) K/uL Sodium 133 L (136-145) mmol/L Potassium 4.2 (3.5-5.1) mmol/L Chloride 101 (98-107) mmol/L Carbon Dioxide 24 (21-32) mmol/L Anion Gap 9.0 (3-11) BUN 15 (7-18) mg/dl Creatinine 3.50 H D (0.6-1.2) mg/dl Est Cr Clr Drug Dosing 13.0 ml/min Est GFR ( Amer) 13.8 Est GFR (Non-Af Amer) 11.9 BUN/Creatinine Ratio 4.4 L (10-20) Glucose 201 H (70-99) mg/dl POC Glucose 152 H (70-99) mg/dl Calcium 8.8 (8.5-10.1) mg/dl Phosphorus 3.1 (2.5-4.9) mg/dl Magnesium 1.8 (1.8-2.4) mg/dl Total Bilirubin 0.6 (0.2-1) mg/dl AST 15 (15-37) U/L ALT 15 (12-78) U/L Alkaline Phosphatase 101 (45-117) U/L Total Protein 6.6 (6.4-8.2) gm/dl Albumin 2.4 L (3.4-5.0) gm/dl Globulin 4.2 H (2.5-4.0) gm/dl Albumin/Globulin Ratio 0.6 L (0.9-2) Hep Bs Antigen (Neg) Hep Bs Antibody Hep Bs Antibody, Quant (>or=10mIU/mL Immune) mIU/mL 05/23/20 05/23/20 05/22/20 Range/Units 10:11 08:11 20:42 WBC 7.68 (4.8-10.8) K/uL RBC 2.97 L (4.2-5.4) M/uL Hgb 9.5 L (12.0-16.0) g/dL Hct 29.9 L (37-47) % MCV 100.7 H (80-100) fL MCH 32.0 (25-34) pg MCHC 31.8 L (32-36) g/dL RDW Std Deviation 61.7 H (36.4-46.3) fL RDW Coeff of Alejandra 17.0 H (11.5-14.5) % Plt Count 160 (130-400) K/uL MPV 8.8 (7.4-10.4) fL Immature Gran % (Auto) 0.3 % Neut % (Auto) 83.7 % Lymph % (Auto) 8.5 % [place] % (Auto) 5.6 % Eos % (Auto) 1.6 % Baso % (Auto) 0.3 % Neut # (Auto) 6.44 (1.4-6.5) K/uL Lymph # (Auto) 0.65 L (1.2-3.4) K/uL [place] # (Auto) 0.43 (0.11-0.59) K/uL Eos # (Auto) 0.12 (0-0.5) K/uL Baso # (Auto) 0.02 (0-0.2) K/uL Immature Gran # (Auto) 0.02 (0.00-0.02) K/uL Sodium (136-145) mmol/L Potassium (3.5-5.1) mmol/L Chloride (98-107) mmol/L Carbon Dioxide (21-32) mmol/L Anion Gap (3-11) BUN (7-18) mg/dl Creatinine (0.6-1.2) mg/dl Est Cr Clr Drug Dosing ml/min Est GFR ( Amer) Est GFR (Non-Af Amer) BUN/Creatinine Ratio (10-20) Glucose (70-99) mg/dl POC Glucose 123 H 187 H (70-99) mg/dl Calcium (8.5-10.1) mg/dl Phosphorus (2.5-4.9) mg/dl Magnesium (1.8-2.4) mg/dl Total Bilirubin (0.2-1) mg/dl AST (15-37) U/L ALT (12-78) U/L Alkaline Phosphatase (45-117) U/L Total Protein (6.4-8.2) gm/dl Albumin (3.4-5.0) gm/dl Globulin (2.5-4.0) gm/dl Albumin/Globulin Ratio (0.9-2) Hep Bs Antigen (Neg) Hep Bs Antibody Hep Bs Antibody, Quant (>or=10mIU/mL Immune) mIU/mL 05/22/20 Range/Units 10:21 WBC (4.8-10.8) K/uL RBC (4.2-5.4) M/uL Hgb (12.0-16.0) g/dL Hct (37-47) % MCV (80-100) fL MCH (25-34) pg MCHC (32-36) g/dL RDW Std Deviation (36.4-46.3) fL RDW Coeff of Alejandra (11.5-14.5) % Plt Count (130-400) K/uL MPV (7.4-10.4) fL Immature Gran % (Auto) % Neut % (Auto) % Lymph % (Auto) % [place] % (Auto) % Eos % (Auto) % Baso % (Auto) % Neut # (Auto) (1.4-6.5) K/uL Lymph # (Auto) (1.2-3.4) K/uL [place] # (Auto) (0.11-0.59) K/uL Eos # (Auto) (0-0.5) K/uL Baso # (Auto) (0-0.2) K/uL Immature Gran # (Auto) (0.00-0.02) K/uL Sodium (136-145) mmol/L Potassium (3.5-5.1) mmol/L Chloride (98-107) mmol/L Carbon Dioxide (21-32) mmol/L Anion Gap (3-11) BUN (7-18) mg/dl Creatinine (0.6-1.2) mg/dl Est Cr Clr Drug Dosing ml/min Est GFR ( Amer) Est GFR (Non-Af Amer) BUN/Creatinine Ratio (10-20) Glucose (70-99) mg/dl POC Glucose (70-99) mg/dl Calcium (8.5-10.1) mg/dl Phosphorus (2.5-4.9) mg/dl Magnesium (1.8-2.4) mg/dl Total Bilirubin (0.2-1) mg/dl AST (15-37) U/L ALT (12-78) U/L Alkaline Phosphatase (45-117) U/L Total Protein (6.4-8.2) gm/dl Albumin (3.4-5.0) gm/dl Globulin (2.5-4.0) gm/dl Albumin/Globulin Ratio (0.9-2) Hep Bs Antigen Neg (Neg) Hep Bs Antibody Non-Immune Hep Bs Antibody, Quant 4.51 L (>or=10mIU/mL Immune) mIU/mL PG Care Time/CCT Total # of Minutes Spent Total Time Spent with Patient: Total time spent is greater than 50% in coordination of care (as documented) at patient's floor/unit and/or counseling patient: Coding Level of Care Code 75448 Subseq Hosp Care Lvl 2 Diagnoses Arteriosclerotic gangrene I70.269 ESRD (end stage renal disease) on dialysis N18.6; Z99.2 Peripheral arterial disease I73.9 Cirrhosis K74.60 Morbid obesity E66.01 Obstructive sleep apnea G47.33 Asymptomatic bilateral carotid artery stenosis I65.23 Atrial fibrillation I48.2 Atrial fibrillation type: permanent Diabetes E11.9 Chronic kidney disease stage: on chronic dialysis Diabetes mellitus complication detail: with chronic kidney disease Diabetes 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
[2020-05-23 10:23] LABS: Basophils # (auto) 0.02 K/uL (0-0.2); Basophils % (auto) 0.3 %; Eosinophils # (auto) 0.12 K/uL (0-0.5); Eosinophils % (auto) 1.6 %; Hematocrit (blood only) 29.9 % (37-47); Hemoglobin 9.5 g/dL (12.0-16.0); Immature Granulocytes # (auto) 0.02 K/uL (0.00-0.02); Immature Granulocytes % (auto) 0.3 %; Lymphocytes # (auto) 0.65 K/uL (1.2-3.4); Lymphocytes % (auto) 8.5 %; Mean Corpuscular Hgb Conc 31.8 g/dL (32-36); Mean Corpuscular Volume 100.7 fL (80-100); Mean Platelet Volume 8.8 fL (7.4-10.4); Monocytes # (auto) 0.43 K/uL (0.11-0.59); Monocytes % (auto) 5.6 %; Neutrophils # (auto) 6.44 K/uL (1.4-6.5); Neutrophils % (auto) 83.7 %; Platelet Count 160 K/uL (130-400); RDW Standard Deviation 61.7 fL (36.4-46.3); Red Blood Count 2.97 M/uL (4.2-5.4); White Blood Count 7.68 K/uL (4.8-10.8)
[2020-05-23] MEDS: oxyCODONE HCL IR 5 MG TAB (IMMEDIATE RELEASE) PO PRN ×3 (11:00→23:51)
[2020-05-23 11:09] LABS: Albumin Level 2.4 gm/dl (3.4-5.0); BUN Creatinine Ratio 4.4 (10-20); Calcium 8.8 mg/dl (8.5-10.1); Est GFR (African American) 13.8; Est GFR (Non-African American) 11.9; Potassium 4.2 mmol/L (3.5-5.1)
[2020-05-23 11:11] LABS: Albumin Globulin Ratio 0.6 (0.9-2); Bilirubin,Total 0.6 mg/dl (0.2-1); Globulin 4.2 gm/dl (2.5-4.0); Total Protein 6.6 gm/dl (6.4-8.2)
[2020-05-23 11:15] LABS: Magnesium 1.8 mg/dl (1.8-2.4); Phosphorus 3.1 mg/dl (2.5-4.9)
--- NOTE | 2020-05-23 11:46 | Podiatry Consultation ---
Date of Consultation May 23, 2020 Assessment & Plan (1) Toe necrosis: (2) Cellulitis of foot, left: (3) ESRD (end stage renal disease) on dialysis: (4) Arteriosclerotic gangrene: History of Present Illness Attending Physician: Aracely Shields MD Patient seen at bedside today for a left 2nd toe dry gangrene in much better spirits vs when I saw her in the office on Wednesday. Patient has likely popliteal block and is scheduled for arterial procedure with on Wednesday, she asked if he can amputate the toe at the same time and I am completely in favor of that, patient also stated to me that discussed this with her when he saw her on Wednesday. Overall patient told me she felt much better and her foot/toe felt better as well, she was in no acute distress, as she was in my office on Wednesday - plan is for angiography per vascular and toe amp Wednesday by vascular surgery - she will continue routine care with me once she is d/c - thank you everyone for your help with this patient she was very appreciative Allergies Allergy/AdvReac Type Severity Reaction Status Date / Time ANGEL Inhibitors Allergy Mild Cough Verified 05/21/20 19:45 doxycycline Allergy Mild upset Verified 05/21/20 19:45 stomach simvastatin Allergy Mild "did not Verified 05/21/20 19:45 feel well while taking" metformin Allergy Unknown does not Verified 05/21/20 19:45 remember pioglitazone Allergy Unknown ? NOT SURE Verified 05/21/20 19:45 rosiglitazone Allergy Unknown NOT SURE Verified 05/21/20 19:45 [id number] Reductase AdvReac Intermediate LEGS HURT Verified 05/21/20 19:45 Inhibitor ciprofloxacin AdvReac Mild UPSET Verified 05/21/20 19:45 STOMACH levofloxacin AdvReac Mild ?NAUSEA Verified 05/21/20 19:45 escitalopram AdvReac Unknown Verified 05/21/20 19:45 homatropine AdvReac Unknown Verified 05/21/20 19:45 [From Hycodan (with homatropin)] oxycodone AdvReac Unknown Verified 05/21/20 19:45 CAT GUT SUTURES Allergy Intermediate SLOW Uncoded 05/21/20 19:45 HEALING,INFLAMED TISSUE Home Medications Medication Instructions Recorded Confirmed Type cetirizine [Zyrtec] 10 mg PO QDD 07/07/18 05/21/20 History ProRenal 2 tab PO QDD 12/19/18 05/21/20 History biotin 1 mg capsule 1 mg PO BID cap 02/01/19 05/21/20 History cranberry 400 mg capsule 800 mg PO BID 02/01/19 05/21/20 History lactobacillus combination no.4 3 3,000 mmu cells PO BIDM cap 02/01/19 05/21/20 History billion cell capsule lamotrigine 25 mg tablet 25 mg PO BID 30 Days #60 tab 01/02/20 05/21/20 Rx apixaban [Eliquis] 2.5 mg PO BID 01/24/20 05/22/20 History promethazine 25 mg tablet 25 mg PO TID PRN #30 tab 02/21/20 05/21/20 Rx calcium acetate(phosphat bind) 667 667 mg PO BID cap 03/12/20 05/21/20 History mg capsule bumetanide 2 mg tablet 2 mg PO BID #180 tab 05/21/20 05/21/20 Rx hydrocodone-acetaminophen 1 tab PO Q12H 05/21/20 05/21/20 History labetalol See Rx Instructions .ROUTE .COMPLEX 05/21/20 05/21/20 History loperamide [Imodium A-D] 2 mg PO Q6H PRN 05/21/20 05/21/20 History omeprazole 40 mg capsule,delayed 40 mg PO DAILY #90 cap 05/21/20 05/21/20 Rx release oxcarbazepine See Rx Instructions .ROUTE .COMPLEX 05/21/20 05/21/20 History Patient History Medical History Anemia Asymptomatic bilateral carotid artery stenosis Atrial fibrillation C. difficile colitis Carpal tunnel syndrome CHF exacerbation Cholangitis Cirrhosis of liver CKD (chronic kidney disease) stage 3, GFR 30-59 ml/min DIALYSIS M// [place] Clostridium difficile infection 2015 Diabetes Diabetic nephropathy Disc degeneration, lumbar Diverticulosis DVT prophylaxis Erosive (osteo)arthritis GERD (gastroesophageal reflux disease) Gout Hiatal hernia Hip fracture, left HTN (hypertension) Hyperlipidemia Hypoalbuminemia Hypokalemia due to loss of potassium Hypomagnesemia Internal hemorrhoids Left ventricular hypertrophy Lymphedema Morbid obesity Nocturnal hypoxia Obstructive sleep apnea Osteoporosis Proteinuria Scoliosis Sleep apnea NO DEVICE Spinal stenosis Tremor Trigeminal neuralgia Vitamin B12 deficiency Vitamin D deficiency Surgical History AV fistula L upper extremity H/O knee surgery H/O tubal ligation History of carpal tunnel surgery History of Neuroplasty Decompression Median Nerve At Carpal Tunnel History of cataract surgery RT/LEFT History of cholecystectomy History of colonoscopy History of dilation and curettage History of ERCP MULTIPLE History of esophagogastroduodenoscopy (EGD) History of total knee replacement RT/LEFT Family History Daughter Breast cancer Unknown Emphysema, unspecified Other Family history non-contributory Social History Smoking Status: Never smoker Second Hand Exposure: No; Hx Alcohol Use: No Hx Substance Use: No Preferred Language: Polish Communication Ability: Effective Visual Impairment: No Limitations Paid Intern Required: No Beliefs That Will Affect Care: None marital status: Current Living Situation: Spouse current occupational status: retired Other Information That Helps Us Care for You: No Feels Safe at Home: Yes Safety Concerns: Feels Safe At This Time caffeine: Yes Seatbelt Use: always Assistive Devices: Denture - Upper, Denture - Lower, Glasses and Wheelchair Physical Exam Skin: left foot 2nd toe with dry gangrene changes without drainage or gas, stable appearance of the toe, less erythema and swelling noted of the dorsal left foot, pain is improving as well, overall stable appearance of the left 2nd toe with changes of dry gangrene to the MPJ Results & Data ([facility]) Vital Signs (Past 12 Hours) Vital Signs Temp Pulse Resp BP Pulse Ox 05/23/20 06:56 37.2 C 87 19 159/77 H 95 05/23/20 00:27 37.2 C 75 16 123/74 96
--- NOTE | 2020-05-23 16:10 | Nephrology Progress Note ---
Date of Service May 23, 2020 Assessment & Plan (1) ESRD (end stage renal disease) on dialysis: Mrs. Diaz has ESRD requiring 3x/wk HD ([facility] [place] 4hr 2K 2.5Ca F-180NR Qb400 EDW 84.5 kg). Electrolytes controlled. BP and volume status acceptable. Plan next HD tomorrow per MW schedule. Medications appropriate for kidney function (2) Peripheral arterial disease: Angiography per Dr. Johnson Wednesday (3) HTN (hypertension): BP acceptable. Labetalol held prior to dialysis. (4) Toe necrosis: Medications appropriately dosed for kidney function. Podiatry consult reviewed. Anticipated amputation Wednesday. (5) Anemia: Epogen provided with HD yesterday. Admission and Anticipated Discharge Date Admission Date: May 21, 2020 Subjective No acute events overnight. Kalyani was seen and evaluated this AM. She tolerated HD well yesterday. No complications with treatment. Pain controlled. No fevers or chills. Review of Systems Review of Systems: All systems reviewed & are unremarkable except as noted in HPI & below Physical Exam Constitutional: well developed; no acute distress Eyes: no scleral abnormality and no corneal abnormality ENMT: Mouth: no oral mucosal abnormality and oral mucous membranes not dry Neck: normal visual inspection and trachea midline Respiratory: normal respiratory effort Auscultation: lungs clear to auscultation bilaterally Cardiovascular: Rate/Rhythm: regular rate Heart Sounds: normal S1 and normal S2 Extremities: no edema Musculoskeletal: Extremities: no cyanosis and no clubbing Skin: normal turgor; no lesions Neurologic: Motor/Sensory: no tremor and no asterixis Psychiatric: Orientation: alert and oriented x 3 Results & Data ([facility]) Vital Signs (Past 12 Hours) Vital Signs Temp Pulse Resp BP Pulse Ox 05/23/20 14:44 37.5 C 65 18 114/61 97 05/23/20 06:56 37.2 C 87 19 159/77 H 95 Laboratory Results Laboratory Results - last 24 hr 05/22/20 05/22/20 05/23/20 10:21 20:42 08:11 WBC RBC Hgb Hct MCV MCH MCHC RDW Std Deviation RDW Coeff of Alejandra Plt Count MPV Immature Gran % (Auto) Neut % (Auto) Lymph % (Auto) [place] % (Auto) Eos % (Auto) Baso % (Auto) Neut # (Auto) Lymph # (Auto) [place] # (Auto) Eos # (Auto) Baso # (Auto) Immature Gran # (Auto) Sodium Potassium Chloride Carbon Dioxide Anion Gap BUN Creatinine Est Cr Clr Drug Dosing Est GFR ( Amer) Est GFR (Non-Af Amer) BUN/Creatinine Ratio Glucose POC Glucose 187 H 123 H Calcium Phosphorus Magnesium Total Bilirubin AST ALT Alkaline Phosphatase Total Protein Albumin Globulin Albumin/Globulin Ratio Hep Bs Antigen Neg Hep Bs Antibody Non-Immune Hep Bs Antibody, Quant 4.51 L 05/23/20 05/23/20 05/23/20 10:11 10:11 10:11 WBC 7.68 RBC 2.97 L Hgb 9.5 L Hct 29.9 L MCV 100.7 H MCH 32.0 MCHC 31.8 L RDW Std Deviation 61.7 H RDW Coeff of Alejandra 17.0 H Plt Count 160 MPV 8.8 Immature Gran % (Auto) 0.3 Neut % (Auto) 83.7 Lymph % (Auto) 8.5 [place] % (Auto) 5.6 Eos % (Auto) 1.6 Baso % (Auto) 0.3 Neut # (Auto) 6.44 Lymph # (Auto) 0.65 L [place] # (Auto) 0.43 Eos # (Auto) 0.12 Baso # (Auto) 0.02 Immature Gran # (Auto) 0.02 Sodium 133 L Potassium 4.2 Chloride 101 Carbon Dioxide 24 Anion Gap 9.0 BUN 15 Creatinine 3.50 H D Est Cr Clr Drug Dosing 13.0 Est GFR ( Amer) 13.8 Est GFR (Non-Af Amer) 11.9 BUN/Creatinine Ratio 4.4 L Glucose 201 H POC Glucose Calcium 8.8 Phosphorus 3.1 Magnesium 1.8 Total Bilirubin 0.6 AST 15 ALT 15 Alkaline Phosphatase 101 Total Protein 6.6 Albumin 2.4 L Globulin 4.2 H Albumin/Globulin Ratio 0.6 L Hep Bs Antigen Hep Bs Antibody Hep Bs Antibody, Quant 05/23/20 12:21 WBC RBC Hgb Hct MCV MCH MCHC RDW Std Deviation RDW Coeff of Alejandra Plt Count MPV Immature Gran % (Auto) Neut % (Auto) Lymph % (Auto) [place] % (Auto) Eos % (Auto) Baso % (Auto) Neut # (Auto) Lymph # (Auto) [place] # (Auto) Eos # (Auto) Baso # (Auto) Immature Gran # (Auto) Sodium Potassium Chloride Carbon Dioxide Anion Gap BUN Creatinine Est Cr Clr Drug Dosing Est GFR ( Amer) Est GFR (Non-Af Amer) BUN/Creatinine Ratio Glucose POC Glucose 152 H Calcium Phosphorus Magnesium Total Bilirubin AST ALT Alkaline Phosphatase Total Protein Albumin Globulin Albumin/Globulin Ratio Hep Bs Antigen Hep Bs Antibody Hep Bs Antibody, Quant PG Care Time/CCT Total # of Minutes Spent Total Time Spent with Patient: Total time spent is greater than 50% in coordination of care (as documented) at patient's floor/unit and/or counseling patient: Coding Level of Care Code 09117 Subseq Hosp Care Lvl 3 Diagnoses ESRD (end stage renal disease) on dialysis N18.6; Z99.2 Peripheral arterial disease I73.9 HTN (hypertension) I10 Hypertension type: essential hypertension Toe necrosis I96 Anemia D64.9 (1) HTN (hypertension) Hypertension type: essential hypertension Qualified Code(s): I10 - Essential (primary) hypertension
[2020-05-23] MEDS: CETIRIZINE HCL 10 MG TABLET PO SCH (16:18)
--- NOTE | 2020-05-23 19:37 | XCELERA ---
[id number]
[2020-05-24] MEDS: PIPERACILLIN/TAZOBACTAM 4.5 GM in DEXTROSE 5% 100 ML IV SCH ×2 (02:57→13:17)
[2020-05-24 06:54] LABS: Hematocrit (blood only) 29.3 % (37-47); Hemoglobin 9.5 g/dL (12.0-16.0); Mean Corpuscular Hemoglobin 32.6 pg (25-34); Mean Corpuscular Hgb Conc 32.4 g/dL (32-36); Mean Corpuscular Volume 100.7 fL (80-100); Mean Platelet Volume 8.5 fL (7.4-10.4); Platelet Count 145 K/uL (130-400); RDW Coefficient of Variation 16.8 % (11.5-14.5); RDW Standard Deviation 60.8 fL (36.4-46.3); Red Blood Count 2.91 M/uL (4.2-5.4); White Blood Count 6.66 K/uL (4.8-10.8)
[2020-05-24] MEDS: LABETALOL HCL 200 MG TAB PO SCH ×2 (07:15→20:49)
[2020-05-24 07:40] LABS: BUN Creatinine Ratio 5.7 (10-20); Calcium 8.7 mg/dl (8.5-10.1); Creatinine Clr Calc Pharmacy 9.1 ml/min; Est GFR (Non-African American) 7.8; Magnesium 1.9 mg/dl (1.8-2.4); Phosphorus 3.9 mg/dl (2.5-4.9)
[2020-05-24] MEDS: lamoTRIgine 25 MG TAB PO SCH ×2 (07:40→20:49)
[2020-05-24] MEDS: OXcarbazepine 150 MG TABLET PO SCH ×2 (07:40→20:48)
[2020-05-24] MEDS: BUMETANIDE 1 MG TAB PO SCH ×2 (07:40→16:10)
[2020-05-24] MEDS: APIXABAN 5 MG TABLET PO SCH ×2 (07:40→20:49)
[2020-05-24] MEDS: PANTOprazole 40 MG TAB PO SCH (07:40)
[2020-05-24] MEDS: CALCIUM ACETATE 667 MG CAP/TAB PO SCH ×2 (07:40→16:10)
[2020-05-24] MEDS: oxyCODONE HCL IR 5 MG TAB (IMMEDIATE RELEASE) PO PRN ×3 (08:00→22:26)
--- NOTE | 2020-05-24 08:07 | Pharmacy Report ---
Pharmacy Abx Dose Progress Nt - Date of Service May 24, 2020 - Pharmacy Dosing Scope The patient is currently receiving the following antimicrobial agents per Pharmacy consult: Vancomycin - dosing based on pre-HD level and dialysis schedule - Objective Vital Signs (Past 12hrs): Vital Signs Temp Pulse Pulse Resp BP Pulse Ox 05/24/20 07:02 37.1 C 74 18 123/73 94 05/23/20 23:45 37.1 C 88 14 121/68 97 05/23/20 20:23 94 H 120/75 96 Lab Results (24hrs): Laboratory Tests (24 Hours) 05/24/20 05/24/20 05/24/20 06:38 06:38 06:38 WBC 6.66 Neut # (Auto) Creatinine 4.98 H* D Est Cr Clr Drug Dosing 9.1 Random Vancomycin 19.8 05/23/20 05/23/20 10:11 10:11 WBC 7.68 Neut # (Auto) 6.44 Creatinine 3.50 H D Est Cr Clr Drug Dosing 13.0 Random Vancomycin Micro Results: 05/22/20 20:56 Gram Stain - Final Toe,Left Second - Risk Factors for Resistance * Chronic dialysis within the past 30 days - Assessment & Plan Assessment 75 year old F receiving Vancomycin + Zosyn for treatment of Left second necrotic gangrenous toe with associated left lower extremity cellulitis thought to be secondary to PAD and DM Day # 4 of antimicrobial therapy Plan Vancomycin IV * Random level of 19.8 mcg/mL is therapeutic - pt is ordered HD today which will remove ~30% of vancomycin. * Based on this pre-HD level a dose of 500-750 mg {given after HD} is recommended. Will give 750mg/dl since next HD session after today will be Wednesday. * Repeat random level Wednesday with AM labs and dose accordingly. Piperacillin/tazobactam * Continue 4.5 g IV extended infusion every 12 hours for CrCl 20 mL/min or less. * Higher dose of Zosyn warranted for BMI > 35 Pharmacy will continue to follow and will adjust dose/frequency as necessary. Thank you.
--- NOTE | 2020-05-24 13:14 | Nephrology Progress Note ---
Date of Service May 24, 2020 Assessment & Plan (1) ESRD (end stage renal disease) on dialysis: MWF - 3x/wk HD ([facility] 4hr 2K 2.5Ca F-180NR Qb400 EDW 84.5 kg). Electrolytes controlled. BP and volume status acceptable. UF goal today 1 L. Qb acceptable. Medications appropriate for kidney function (2) Peripheral arterial disease: Angiography per Dr. Johnson Wednesday (3) HTN (hypertension): BP acceptable. Labetalol held prior to dialysis. (4) Toe necrosis: Medications appropriately dosed for kidney function. Podiatry consult reviewed. Anticipated amputation Wednesday. (5) Anemia: Epogen provided with HD 05/22. Admission and Anticipated Discharge Date Admission Date: May 21, 2020 Subjective No acute events overnight. Kalyani was seen and evaluated during HD this AM. No complications with treatment. Pain controlled. No fevers or chills. Review of Systems Review of Systems: All systems reviewed & are unremarkable except as noted in HPI & below Physical Exam Constitutional: well developed; no acute distress Eyes: no scleral abnormality and no corneal abnormality ENMT: Mouth: no oral mucosal abnormality and oral mucous membranes not dry Neck: normal visual inspection and trachea midline Respiratory: normal respiratory effort Auscultation: lungs clear to auscultation bilaterally Cardiovascular: Rate/Rhythm: regular rate Heart Sounds: normal S1 and normal S2 Extremities: no edema Musculoskeletal: Extremities: no cyanosis and no clubbing Skin: normal turgor; no lesions Neurologic: Motor/Sensory: no tremor and no asterixis Psychiatric: Orientation: alert and oriented x 3 Results & Data ([facility]) Vital Signs (Past 12 Hours) Vital Signs Temp Pulse Pulse Pulse Resp BP BP 05/24/20 12:50 37.5 C 74 74 150/61 H 150/61 H 05/24/20 12:40 76 154/63 H 05/24/20 12:20 79 146/67 H 05/24/20 12:00 71 137/66 05/24/20 11:40 75 140/59 L 05/24/20 11:20 69 128/64 05/24/20 11:00 74 135/66 05/24/20 10:40 70 127/62 05/24/20 10:20 84 131/69 05/24/20 10:00 79 120/69 05/24/20 09:40 59 L 123/60 05/24/20 09:20 80 129/66 05/24/20 09:08 37.5 C 72 72 112/79 05/24/20 07:02 37.1 C 74 18 123/73 Pulse Ox 05/24/20 12:50 05/24/20 12:40 05/24/20 12:20 05/24/20 12:00 05/24/20 11:40 05/24/20 11:20 05/24/20 11:00 05/24/20 10:40 05/24/20 10:20 05/24/20 10:00 05/24/20 09:40 05/24/20 09:20 05/24/20 09:08 05/24/20 07:02 94 Laboratory Results Laboratory Results - last 24 hr 05/23/20 05/23/20 05/24/20 17:42 21:23 06:38 WBC RBC Hgb Hct MCV MCH MCHC RDW Std Deviation RDW Coeff of Alejandra Plt Count MPV Sodium Potassium Chloride Carbon Dioxide Anion Gap BUN Creatinine Est Cr Clr Drug Dosing Est GFR ( Amer) Est GFR (Non-Af Amer) BUN/Creatinine Ratio Glucose POC Glucose 144 H 147 H Calcium Phosphorus Magnesium Random Vancomycin 19.8 05/24/20 05/24/20 05/24/20 06:38 06:38 08:27 WBC 6.66 RBC 2.91 L Hgb 9.5 L Hct 29.3 L MCV 100.7 H MCH 32.6 MCHC 32.4 RDW Std Deviation 60.8 H RDW Coeff of Alejandra 16.8 H Plt Count 145 MPV 8.5 Sodium 132 L Potassium 5.0 D Chloride 99 Carbon Dioxide 25 Anion Gap 8.0 BUN 28 H D Creatinine 4.98 H* D Est Cr Clr Drug Dosing 9.1 Est GFR ( Amer) 9.0 Est GFR (Non-Af Amer) 7.8 BUN/Creatinine Ratio 5.7 L Glucose 113 H POC Glucose 124 H Calcium 8.7 Phosphorus 3.9 Magnesium 1.9 Random Vancomycin PG Care Time/CCT Total # of Minutes Spent Total Time Spent with Patient: Total time spent is greater than 50% in coordination of care (as documented) at patient's floor/unit and/or counseling patient: Coding Level of Care Code 20034 Subseq Hosp Care Lvl 3 Diagnoses ESRD (end stage renal disease) on dialysis N18.6; Z99.2 Peripheral arterial disease I73.9 HTN (hypertension) I10 Hypertension type: essential hypertension Toe necrosis I96 Anemia D64.9 (1) HTN (hypertension) Hypertension type: essential hypertension Qualified Code(s): I10 - Essential (primary) hypertension
[2020-05-24] MEDS: ADVANCED PROBIOTIC 1250 MG CAPSULE PO SCH (13:17)
[2020-05-24] MEDS: ACETAMINOPHEN 325 MG TAB PO PRN ×3 (13:25→22:26)
--- NOTE | 2020-05-24 15:58 | Hospitalist Progress Note ---
Date of Service May 24, 2020 Assessment & Plan (1) Arteriosclerotic gangrene: 75-year-old female with a past medical history of end-stage renal disease on hemodialysis MWF, SERENITY on CPAP, DM, HTN, HLD, Afib on Eliquis, Cirrhosis, Obesity was referred to the emergency department from her PCPs office for evaluation of a necrotic left second toe thought to be secondary to peripheral arterial disease in the setting of patient with end-stage renal disease after failure of multiple outpatient rounds of several abx for cellulitis Left second necrotic gangrenous toe with associated left lower extremity cellulitis thought to be secondary to PAD and DM Patient is unaware of the exact date that her toe began to develop an infection. However it is significantly progressed for at least the past 4 weeks. She had previously arranged to have outpatient arterial studies performed and to follow- up with Dr. Johnson in the outpatient realm. She was evaluated by her PCP who felt that she needed to proceed to the hospital for further evaluation and management of her left lower extremity. On examination her left lower extremity demonstrates a black gangrenous toe. She describes it is painful. Dr. Johnson is aware, requesting medical management of her toe in consultation by vascular surgery. * Arterial study with stenosis * Consult vascular surgery -- plans for arteriography with possible balloon and stenting of left popliteal artery. Rec cont antibiotics prior to undergoing vascular intervention. Likely for intervention with arteriography on Wednesday * Continue Zosyn, Vancomycin * Blood Cultures pending * Wound culture ordered if able to obtain, although without drainage noted today and no prior cx collected * Diet ordered as no intervention until Wednesday * Pen to yves erythema to monitor progress -- improving cellulitis * CXR with cardiomegaly and mild pulm vasc congestion. No sob reported although patient without much exercise tolerance/activity. * Added inflammatory markers -- elevated although has ESRD which can cause elevated sed rate -- ESR 57, CRP 7.46 * Procal 0.44 * Will obtain ECHO as does not appear to have any in our system recently (Only one from 2016 with severe LVG, mild LA dilation. Does have SERENITY and pulm HTN with R heart failure per Dr. Whitley's note) * --> ECHO with normal LV size/function. EF 60-65%, no wma. Mod LVH. Severe L atrial dilation, mod R atrial dilation, mild-mod TR, severe pulmonary HTN with RSVP 64mmHg, no vegetations * Resumed Eliquis (on for afib) for now as no plans for OR just yet. * Per discussion with PA, can continue Eliquis for now but will need to re-eval holding prior to amputation, possibly to be done Wednesday after angiography planned for wednesday * Podiatry consulted per rec from Dr. Johnson-- -- agreed with proposed 2nd digit amputation. Clarified by Dr. Gomez with Dr. Johnson that she will be unable to perform. He discussed that he would be able to attempt possibly Wednesday. * Culture from 2nd great toe -- mod counts mixed skin patrick, no further id/sens * Monitor AM labs End-stage renal disease with anemia * MWF HD patient * Nephrology on consult * Had HD 05/22 for 1.1L, again 05/24 * Continue Bumex 2 mg p.o. twice daily * Daily BMP and replete electrolytes as indicated * MCV >100 -- B12 529 , FOlate >20. F/u outpt Chronic pain * Takes 1 tab of hydrocodone acetaminophen p.o. every 12 hours at home. * This was held and transitioned to IV morphine per admitting provider although patient states this was not as helpful for pain control at all -- discontinued given patient with cirrhosis and ESRD * Ordered oxycodone PO which was reportedly very helpful and will continue to utilize this for pain control (listed as allergy but patient states she doesn't recall any specific issue) -- continue prn Obstructive sleep apnea * CPAP ordered Diabetes in the setting of morbid obesity * Patient with a history of diabetes, most recent hemoglobin A1c demonstrates good control at 4.6 * Monitor glucose control while hospitalized * 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 * BSGs acceptable on POC Atrial fibrillation * Currently rate controlled, Eliquis held for anticipated surgery * Resumed Eliquis as no surgery today * Continue labetalol 200mg Sun/Tu/Thurs/Sat and 200mg BID MWF Allergic rhinitis * Continue Zyrtec GERD * On omeprazole 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 Johnson (2) ESRD (end stage renal disease) on dialysis: (3) Peripheral arterial disease: (4) Cirrhosis: (5) Morbid obesity: (6) Obstructive sleep apnea: (7) Asymptomatic bilateral carotid artery stenosis: (8) Atrial fibrillation: (9) Diabetes: (10) HTN (hypertension): (11) Anemia: (12) Toe necrosis: (13) Diabetic nephropathy: Admission and Anticipated Discharge Date Admission Date: May 21, 2020 Supervising Physician Co-Signing Physician Notes PA Supervision Note: I did not personally see or examine the patient today, but I verified all smith points of BASIL Pichardo's assessment and plan with the following exceptions/additions: We will need to discuss with vascular but would hold Eliquis for angiogram for Wednesday as well. Subjective Patient doing well. Had HD this morning. Would like something for pain but states it has been tolerable. Discussed that I spoke with Dr Gomez this morning and that she spoke with Dr. Johnson and given that she will be unable to operate until June, he will plan for intervention Wednesday for angio and then possible amputation of toe on Wednesday. Patient nervous about making it home for [place], which is her primary goal however she is understanding that we will have to see how she progresses after surgery. No fever, chill, chest pain, shortness of breath, abdominal pain, nausea, vomiting. Review of Systems Review of Systems: All systems reviewed & are unremarkable except as noted in HPI & below Physical Exam Constitutional: WD/WN, vitals as above no acute distress Eyes: + anicteric sclerae and PERRL ENMT: Ears: no hearing impairment Neck: normal visual inspection and trachea midline Respiratory: normal respiratory effort, lungs clear to auscultation Cardiovascular: Rate/Rhythm: + irregularly irregular Heart Sounds: no murmur Extremities: no edema Gastrointestinal (Abdomen): normal bowel sounds, soft, nontender, no hepatosplenomegaly Musculoskeletal: no cyanosis or clubbing, extremities motor strength 5/5 Skin: Bruising to LUE fistula with palpable thrill 2nd toe LEFT foot gangrenous toe with covering eschar surrounding erythema to dorsum of L foot -- well within marking placed 05/22 and continues to recede, almost resolved no hair present absent LEFT pulse posterior tibial artery, decreased dp pulses L palpable in RLE NVI calves non-tender to palpation Neurologic: PERRL, EOMI, accommodation nl, no face palsy, no dysarthria Psychiatric: A+Ox3, euthymic affect Lymphatic: no cervical or axillary lymphadenopathy Results & Data Results & Data ([facility]) Vital Signs (Past 12 Hours) Vital Signs Temp Pulse Pulse Pulse Resp BP BP 05/24/20 12:50 37.5 C 74 74 150/61 H 150/61 H 05/24/20 12:40 76 154/63 H 05/24/20 12:20 79 146/67 H 05/24/20 12:00 71 137/66 05/24/20 11:40 75 140/59 L 05/24/20 11:20 69 128/64 05/24/20 11:00 74 135/66 05/24/20 10:40 70 127/62 05/24/20 10:20 84 131/69 05/24/20 10:00 79 120/69 05/24/20 09:40 59 L 123/60 05/24/20 09:20 80 129/66 05/24/20 09:08 37.5 C 72 72 112/79 05/24/20 07:02 37.1 C 74 18 123/73 Pulse Ox 05/24/20 12:50 05/24/20 12:40 05/24/20 12:20 05/24/20 12:00 05/24/20 11:40 05/24/20 11:20 05/24/20 11:00 05/24/20 10:40 05/24/20 10:20 05/24/20 10:00 05/24/20 09:40 05/24/20 09:20 05/24/20 09:08 05/24/20 07:02 94 Laboratory Results 05/24/20 05/24/20 05/24/20 Range/Units 08:27 06:38 06:38 WBC 6.66 (4.8-10.8) K/uL RBC 2.91 L (4.2-5.4) M/uL Hgb 9.5 L (12.0-16.0) g/dL Hct 29.3 L (37-47) % MCV 100.7 H (80-100) fL MCH 32.6 (25-34) pg MCHC 32.4 (32-36) g/dL RDW Std Deviation 60.8 H (36.4-46.3) fL RDW Coeff of Alejandra 16.8 H (11.5-14.5) % Plt Count 145 (130-400) K/uL MPV 8.5 (7.4-10.4) fL Sodium 132 L (136-145) mmol/L Potassium 5.0 D (3.5-5.1) mmol/L Chloride 99 (98-107) mmol/L Carbon Dioxide 25 (21-32) mmol/L Anion Gap 8.0 (3-11) BUN 28 H D (7-18) mg/dl Creatinine 4.98 H* D (0.6-1.2) mg/dl Est Cr Clr Drug Dosing 9.1 ml/min Est GFR ( Amer) 9.0 Est GFR (Non-Af Amer) 7.8 BUN/Creatinine Ratio 5.7 L (10-20) Glucose 113 H (70-99) mg/dl POC Glucose 124 H (70-99) mg/dl Calcium 8.7 (8.5-10.1) mg/dl Phosphorus 3.9 (2.5-4.9) mg/dl Magnesium 1.9 (1.8-2.4) mg/dl Random Vancomycin mcg/ml 05/24/20 05/23/20 05/23/20 Range/Units 06:38 21:23 17:42 WBC (4.8-10.8) K/uL RBC (4.2-5.4) M/uL Hgb (12.0-16.0) g/dL Hct (37-47) % MCV (80-100) fL MCH (25-34) pg MCHC (32-36) g/dL RDW Std Deviation (36.4-46.3) fL RDW Coeff of Alejandra (11.5-14.5) % Plt Count (130-400) K/uL MPV (7.4-10.4) fL Sodium (136-145) mmol/L Potassium (3.5-5.1) mmol/L Chloride (98-107) mmol/L Carbon Dioxide (21-32) mmol/L Anion Gap (3-11) BUN (7-18) mg/dl Creatinine (0.6-1.2) mg/dl Est Cr Clr Drug Dosing ml/min Est GFR ( Amer) Est GFR (Non-Af Amer) BUN/Creatinine Ratio (10-20) Glucose (70-99) mg/dl POC Glucose 147 H 144 H (70-99) mg/dl Calcium (8.5-10.1) mg/dl Phosphorus (2.5-4.9) mg/dl Magnesium (1.8-2.4) mg/dl Random Vancomycin 19.8 mcg/ml Diagnostic Findings ECHO PG Care Time/CCT Total # of Minutes Spent Total Time Spent with Patient: Total time spent is greater than 50% in coordination of care (as documented) at patient's floor/unit and/or counseling patient: Coding Level of Care Code 31445 Subseq Hosp Care Lvl 2 Diagnoses Arteriosclerotic gangrene I70.269 ESRD (end stage renal disease) on dialysis N18.6; Z99.2 Peripheral arterial disease I73.9 Cirrhosis K74.60 Morbid obesity E66.01 Obstructive sleep apnea G47.33 Asymptomatic bilateral carotid artery stenosis I65.23 Atrial fibrillation I48.2 Atrial fibrillation type: permanent Diabetes E11.9 Chronic kidney disease stage: on chronic dialysis Diabetes mellitus complication detail: with chronic kidney disease Diabetes mellitus brass molder helper insulin use: without brass molder helper use HTN (hypertension) I10 Hypertension type: essential hypertension Anemia D64.9 Toe necrosis I96 Diabetic nephropathy E11.21 (1) Diabetes Chronic kidney disease stage: on chronic dialysis Diabetes mellitus complication detail: with chronic kidney disease Diabetes mellitus shelter insulin use: without shelter use (2) Atrial fibrillation Atrial fibrillation type: permanent Qualified Code(s): I48.2 - Chronic atrial fibrillation (3) HTN (hypertension) Hypertension type: essential hypertension Qualified Code(s): I10 - Essential (primary) hypertension
[2020-05-24] MEDS ORDERED: VANCOMYCIN HCL 750 MG in SODIUM CHLORIDE 0.9% 250 ML IV ONE (16:00)
[2020-05-24] MEDS: CETIRIZINE HCL 10 MG TABLET PO SCH (16:10)
[2020-05-24] MEDS: LOPERAMIDE HCL 2 MG CAP PO PRN (20:49)
[2020-05-25] MEDS: PIPERACILLIN/TAZOBACTAM 4.5 GM in DEXTROSE 5% 100 ML IV SCH ×2 (04:02→13:10)
[2020-05-25] MEDS: oxyCODONE HCL IR 5 MG TAB (IMMEDIATE RELEASE) PO PRN ×4 (04:02→22:58)
[2020-05-25 06:05] LABS: Hematocrit (blood only) 29.8 % (37-47); Hemoglobin 9.3 g/dL (12.0-16.0); Mean Corpuscular Hemoglobin 31.4 pg (25-34); Mean Corpuscular Hgb Conc 31.2 g/dL (32-36); Mean Corpuscular Volume 100.7 fL (80-100); Mean Platelet Volume 8.8 fL (7.4-10.4); Platelet Count 124 K/uL (130-400); RDW Coefficient of Variation 16.7 % (11.5-14.5); RDW Standard Deviation 60.7 fL (36.4-46.3); Red Blood Count 2.96 M/uL (4.2-5.4); White Blood Count 6.49 K/uL (4.8-10.8)
[2020-05-25 06:40] LABS: Potassium 3.7 mmol/L (3.5-5.1)
[2020-05-25 06:41] LABS: Albumin Globulin Ratio 0.5 (0.9-2); Albumin Level 2.3 gm/dl (3.4-5.0); BUN Creatinine Ratio 4.5 (10-20); Bilirubin,Total 0.6 mg/dl (0.2-1); Calcium 8.6 mg/dl (8.5-10.1); Creatinine Clr Calc Pharmacy 14.1 ml/min; Est GFR (African American) 15.2; Est GFR (Non-African American) 13.1; Globulin 4.2 gm/dl (2.5-4.0); Total Protein 6.5 gm/dl (6.4-8.2)
--- NOTE | 2020-05-25 09:21 | Hospitalist Progress Note ---
Date of Service May 25, 2020 Assessment & Plan (1) Arteriosclerotic gangrene: 75-year-old female with a past medical history of end-stage renal disease on hemodialysis MWF, SERENITY on CPAP, DM, HTN, HLD, Afib on Eliquis, Cirrhosis, Obesity was referred to the emergency department from her PCPs office for evaluation of a necrotic left second toe thought to be secondary to peripheral arterial disease in the setting of patient with end-stage renal disease after failure of multiple outpatient rounds of several abx for cellulitis Left second necrotic gangrenous toe with associated left lower extremity cellulitis thought to be secondary to PAD and DM Patient is unaware of the exact date that her toe began to develop an infection. However it is significantly progressed for at least the past 4 weeks. She had previously arranged to have outpatient arterial studies performed and to follow- up with Dr. Johnson in the outpatient realm. She was evaluated by her PCP who felt that she needed to proceed to the hospital for further evaluation and management of her left lower extremity. On examination her left lower extremity demonstrates a black gangrenous toe. She describes it is painful. Dr. Johnson is aware, requesting medical management of her toe in consultation by vascular surgery. * Arterial study with stenosis * Consult vascular surgery -- plans for arteriography with possible balloon and stenting of left popliteal artery. Rec cont antibiotics prior to undergoing vascular intervention. Likely for intervention with arteriography on Wednesday * Continue Zosyn, Vancomycin (next dose of Vanco on wednesday -- was given extra 750 after HD 05/24) * Blood Cultures pending * Wound culture ordered if able to obtain, although without drainage noted today and no prior cx collected * Diet ordered as no intervention until Wednesday * Pen to yves erythema to monitor progress -- improving cellulitis * CXR with cardiomegaly and mild pulm vasc congestion. No sob reported although patient without much exercise tolerance/activity. * Added inflammatory markers -- elevated although has ESRD which can cause elevated sed rate -- ESR 57, CRP 7.46 * Procal 0.44 * Obtained ECHO as does not appear to have any in our system recently (Only one from 2016 with severe LVG, mild LA dilation. Does have SERENITY and pulm HTN with R heart failure per Dr. Whitley's note) --> ECHO with normal LV size/function. EF 60-65%, no wma. Mod LVH. Severe L atrial dilation, mod R atrial dilation, mild -mod TR, severe pulmonary HTN with RSVP 64mmHg, no vegetations * Culture from 2nd great toe -- mod counts mixed skin patrick, no further id/sens * Resumed Eliquis (on for afib) for now as no plans for OR just yet --> HELD 05/[address] Johnson for popliteal artery intervention on Wednesday, but may not be able to do amputation until later in the week * Monitor AM labs End-stage renal disease with anemia * MWF HD patient * Nephrology on consult * Had HD 05/22 for 1.1L, again 05/24 * Continue Bumex 2 mg p.o. twice daily * Daily BMP and replete electrolytes as indicated * MCV >100 -- B12 529 , FOlate >20. F/u outpt Chronic pain * Takes 1 tab of hydrocodone acetaminophen p.o. every 12 hours at home. * This was held and transitioned to IV morphine per admitting provider although patient states this was not as helpful for pain control at all -- discontinued given patient with cirrhosis and ESRD * Ordered oxycodone PO which was reportedly very helpful and will continue to utilize this for pain control (listed as allergy but patient states she doesn't recall any specific issue) -- continue prn but increased to 2 tablets prn with improvement of control Obstructive sleep apnea * CPAP ordered Diabetes in the setting of morbid obesity * Patient with a history of diabetes, most recent hemoglobin A1c demonstrates good control at 4.6 * Monitor glucose control while hospitalized * 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 * BSGs acceptable on POC Atrial fibrillation * Currently rate controlled, Eliquis held for anticipated surgery * Resumed Eliquis as no surgery today --> HOLDING STARTING 05/25 * Continue labetalol 200mg Sun/Tues/Thurs/Sat and 200mg BID MWF Allergic rhinitis * Continue Zyrtec GERD * On omeprazole 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 Johnson for intervention Wednesday. May not be able to do amputation until later in the week though Dispo: awaiting intervention next week for gangrenous 2nd toe (2) ESRD (end stage renal disease) on dialysis: (3) Peripheral arterial disease: (4) Cirrhosis: (5) Morbid obesity: (6) Obstructive sleep apnea: (7) Asymptomatic bilateral carotid artery stenosis: (8) Atrial fibrillation: (9) Diabetes: (10) HTN (hypertension): (11) Anemia: (12) Toe necrosis: (13) Diabetic nephropathy: Admission and Anticipated Discharge Date Admission Date: May 21, 2020 Subjective Patient evaluated this morning. Feeling much better with increased dose of pain medication this morning. Eating/drinking without difficulty. Plans for intervention with Dr. Johnson wednesday/wednesday and will need Eliquis held for popliteal artery intervention. No questions/concerns at this time. Review of Systems Review of Systems: All systems reviewed & are unremarkable except as noted in HPI & below Physical Exam Constitutional: WD/WN, vitals as above no acute distress Eyes: + anicteric sclerae and PERRL ENMT: Ears: no hearing impairment Neck: normal visual inspection and trachea midline Respiratory: normal respiratory effort, lungs clear to auscultation Cardiovascular: Rate/Rhythm: + irregularly irregular Heart Sounds: no murmur Extremities: no edema Gastrointestinal (Abdomen): normal bowel sounds, soft, nontender, no hepatosplenomegaly Musculoskeletal: Bruising to LUE fistula with palpable thrill 2nd toe LEFT foot gangrenous toe with covering eschar, dry surrounding erythema to dorsum of L foot almost resolved -- well within marking placed 05/22 and continues to recede no hair present absent LEFT pulse posterior tibial artery, decreased dp pulses L palpable in RLE NVI calves non-tender to palpation Neurologic: PERRL, EOMI, accommodation nl, no face palsy, no dysarthria Psychiatric: A+Ox3, euthymic affect Lymphatic: no cervical or axillary lymphadenopathy Results & Data Results & Data ([facility]) Vital Signs (Past 12 Hours) Vital Signs Temp Pulse Resp BP Pulse Ox 05/25/20 07:46 37.1 C 66 16 141/68 H 97 05/25/20 00:05 37.4 C 88 18 125/74 95 Laboratory Results 05/25/20 05/25/20 05/25/20 Range/Units 08:13 05:55 05:55 WBC 6.49 (4.8-10.8) K/uL RBC 2.96 L (4.2-5.4) M/uL Hgb 9.3 L (12.0-16.0) g/dL Hct 29.8 L (37-47) % MCV 100.7 H (80-100) fL MCH 31.4 (25-34) pg MCHC 31.2 L (32-36) g/dL RDW Std Deviation 60.7 H (36.4-46.3) fL RDW Coeff of Alejandra 16.7 H (11.5-14.5) % Plt Count 124 L (130-400) K/uL MPV 8.8 (7.4-10.4) fL Sodium 136 (136-145) mmol/L Potassium 3.7 D (3.5-5.1) mmol/L Chloride 101 (98-107) mmol/L Carbon Dioxide 28 (21-32) mmol/L Anion Gap 7.0 (3-11) BUN 15 (7-18) mg/dl Creatinine 3.24 H D (0.6-1.2) mg/dl Est Cr Clr Drug Dosing 14.1 ml/min Est GFR ( Amer) 15.2 Est GFR (Non-Af Amer) 13.1 BUN/Creatinine Ratio 4.5 L (10-20) Glucose 129 H (70-99) mg/dl POC Glucose 138 H (70-99) mg/dl Calcium 8.6 (8.5-10.1) mg/dl Total Bilirubin 0.6 (0.2-1) mg/dl AST 9 L (15-37) U/L ALT 13 (12-78) U/L Alkaline Phosphatase 87 (45-117) U/L Total Protein 6.5 (6.4-8.2) gm/dl Albumin 2.3 L (3.4-5.0) gm/dl Globulin 4.2 H (2.5-4.0) gm/dl Albumin/Globulin Ratio 0.5 L (0.9-2) 05/24/20 05/24/20 Range/Units 21:20 17:40 WBC (4.8-10.8) K/uL RBC (4.2-5.4) M/uL Hgb (12.0-16.0) g/dL Hct (37-47) % MCV (80-100) fL MCH (25-34) pg MCHC (32-36) g/dL RDW Std Deviation (36.4-46.3) fL RDW Coeff of Alejandra (11.5-14.5) % Plt Count (130-400) K/uL MPV (7.4-10.4) fL Sodium (136-145) mmol/L Potassium (3.5-5.1) mmol/L Chloride (98-107) mmol/L Carbon Dioxide (21-32) mmol/L Anion Gap (3-11) BUN (7-18) mg/dl Creatinine (0.6-1.2) mg/dl Est Cr Clr Drug Dosing ml/min Est GFR ( Amer) Est GFR (Non-Af Amer) BUN/Creatinine Ratio (10-20) Glucose (70-99) mg/dl POC Glucose 157 H 123 H (70-99) mg/dl Calcium (8.5-10.1) mg/dl Total Bilirubin (0.2-1) mg/dl AST (15-37) U/L ALT (12-78) U/L Alkaline Phosphatase (45-117) U/L Total Protein (6.4-8.2) gm/dl Albumin (3.4-5.0) gm/dl Globulin (2.5-4.0) gm/dl Albumin/Globulin Ratio (0.9-2) PG Care Time/CCT Total # of Minutes Spent Total Time Spent with Patient: Total time spent is greater than 50% in coordination of care (as documented) at patient's floor/unit and/or counseling patient: Coding Level of Care Code 36470 Subseq Hosp Care Lvl 2 Diagnoses Arteriosclerotic gangrene I70.269 ESRD (end stage renal disease) on dialysis N18.6; Z99.2 Peripheral arterial disease I73.9 Cirrhosis K74.60 Morbid obesity E66.01 Obstructive sleep apnea G47.33 Asymptomatic bilateral carotid artery stenosis I65.23 Atrial fibrillation I48.2 Atrial fibrillation type: permanent Diabetes E11.9 Diabetes mellitus penitentiary insulin use: without exterminator use Diabetes mellitus complication detail: with chronic kidney disease Chronic kidney disease stage: on chronic dialysis HTN (hypertension) I10 Hypertension type: essential hypertension Anemia D64.9 Toe necrosis I96 Diabetic nephropathy E11.21 (1) Atrial fibrillation Atrial fibrillation type: permanent Qualified Code(s): I48.2 - Chronic atrial fibrillation (2) Diabetes Diabetes mellitus exterminator insulin use: without exterminator use Diabetes mellitus complication detail: with chronic kidney disease Chronic kidney disease stage: on chronic dialysis (3) HTN (hypertension) Hypertension type: essential hypertension Qualified Code(s): I10 - Essential (primary) hypertension
[2020-05-25] MEDS: OXcarbazepine 150 MG TABLET PO SCH ×2 (09:23→20:32)
[2020-05-25] MEDS: PANTOprazole 40 MG TAB PO SCH (09:23)
[2020-05-25] MEDS: lamoTRIgine 25 MG TAB PO SCH ×2 (09:23→20:32)
[2020-05-25] MEDS: LABETALOL HCL 200 MG TAB PO SCH ×3 (09:24→20:31)
[2020-05-25] MEDS: ADVANCED PROBIOTIC 1250 MG CAPSULE PO SCH (09:24)
[2020-05-25] MEDS: CALCIUM ACETATE 667 MG CAP/TAB PO SCH ×2 (09:24→16:10)
[2020-05-25] MEDS: APIXABAN 5 MG TABLET PO SCH (09:24)
[2020-05-25] MEDS: BUMETANIDE 1 MG TAB PO SCH ×2 (09:24→16:09)
[2020-05-25] MEDS: LOPERAMIDE HCL 2 MG CAP PO PRN (09:29)
--- NOTE | 2020-05-25 14:31 | Nephrology Progress Note ---
Date of Service May 25, 2020 Assessment & Plan (1) ESRD (end stage renal disease) on dialysis: * Volume status and electrolyte balance are acceptable. No acute indication for HD today * Will schedule next HD for am Wednesday due to the upcoming Holiday * Outpatient HD prescription: [facility] (MWF 4hr 2K 2.5Ca F-180NR Qb400 EDW 84.5 kg) * Will stop oral diuretic as patient has had no recorded UO (2) Peripheral arterial disease: * Angiography per Dr. Johnson Wednesday (3) HTN (hypertension): * BP is currently acceptable * Labetalol held prior to dialysis (4) Toe necrosis: * On empiric IV Zosyn * Podiatry consult reviewed. Anticipated amputation Wednesday (5) Anemia: * Will provide TIFFANIE w/ HD Admission and Anticipated Discharge Date Admission Date: May 21, 2020 Subjective Mrs. Diaz was seen & examined in her hospital room this morning. She denied fever, angina or dyspnea. She is agreeable to the proposed vascular procedure on Wednesday. Review of Systems Constitutional: no fever Eyes: no problem reported Ear, Nose, Mouth, Throat: no problem reported Respiratory: no cough and no dyspnea Cardiovascular: no chest pain, no palpitations and no edema Gastrointestinal: no abdominal pain, no nausea and no diarrhea/loose stools Genitourinary: no dysuria and no hematuria Musculoskeletal: no back pain Integumentary: no rash Neurologic: no falls and no dizziness Physical Exam Constitutional: not in distress Eyes: PERRL, conjunctivae normal, anicteric sclerae ENMT: external ear and nose normal, oropharynx normal Neck: trachea midline, no thyromegaly Respiratory: normal respiratory effort, lungs clear to auscultation Cardiovascular: RRR, no murmur, no edema Extremities: + AV fistula (+ bruit) Gastrointestinal (Abdomen): normal bowel sounds, soft, nontender, no hepatosplenomegaly Neurologic: awake; not confused Results & Data ([facility]) Vital Signs (Past 12 Hours) Vital Signs Temp Pulse Resp BP Pulse Ox 05/25/20 07:46 37.1 C 66 16 141/68 H 97 Laboratory Tests 05/25/20 05/25/20 05:55 05:55 WBC 6.49 Hgb 9.3 L Hct 29.8 L Plt Count 124 L Sodium 136 Potassium 3.7 D Chloride 101 Carbon Dioxide 28 BUN 15 Creatinine 3.24 H D Glucose 129 H Albumin 2.3 L PG Care Time/CCT Total # of Minutes Spent Total Time Spent with Patient: Total time spent is greater than 50% in coordination of care (as documented) at patient's floor/unit and/or counseling patient: Coding Level of Care Code 60233 Subseq Hosp Care Lvl 3 Diagnoses ESRD (end stage renal disease) on dialysis N18.6; Z99.2 Peripheral arterial disease I73.9 HTN (hypertension) I10 Hypertension type: essential hypertension Toe necrosis I96 Anemia D64.9 (1) HTN (hypertension) Hypertension type: essential hypertension Qualified Code(s): I10 - Essential (primary) hypertension
[2020-05-25] MEDS: CETIRIZINE HCL 10 MG TABLET PO SCH (16:08)
[2020-05-26] MEDS: PIPERACILLIN/TAZOBACTAM 4.5 GM in DEXTROSE 5% 100 ML IV SCH ×2 (02:03→14:30)
[2020-05-26 06:16] LABS: Hematocrit (blood only) 28.4 % (37-47); Hemoglobin 9.1 g/dL (12.0-16.0); Mean Corpuscular Hemoglobin 31.8 pg (25-34); Mean Corpuscular Volume 99.3 fL (80-100); Mean Platelet Volume 8.8 fL (7.4-10.4); Platelet Count 130 K/uL (130-400); RDW Coefficient of Variation 16.6 % (11.5-14.5); RDW Standard Deviation 60.5 fL (36.4-46.3); Red Blood Count 2.86 M/uL (4.2-5.4); White Blood Count 6.73 K/uL (4.8-10.8)
[2020-05-26] MEDS ORDERED: EPOETIN ALFA 10,000 UNITS/ML VIAL IV SCH (07:00)
[2020-05-26] MEDS ORDERED: HEPARIN SOD (PORCINE) 1000 UNIT/ML 10 ML VIAL IV SCH (07:00)
[2020-05-26] MEDS ORDERED: SODIUM CHLORIDE 0.9% 1000ML 1,000 ML IV PRN (07:00)
[2020-05-26 07:04] LABS: BUN Creatinine Ratio 5.2 (10-20); Calcium 8.5 mg/dl (8.5-10.1); Creatinine Clr Calc Pharmacy 10.1 ml/min; Est GFR (African American) 10.2; Est GFR (Non-African American) 8.8; Potassium 3.7 mmol/L (3.5-5.1)
[2020-05-26] MEDS: oxyCODONE HCL IR 5 MG TAB (IMMEDIATE RELEASE) PO PRN ×3 (07:45→20:28)
[2020-05-26] MEDS: CALCIUM ACETATE 667 MG CAP/TAB PO SCH ×2 (08:23→17:37)
[2020-05-26] MEDS: lamoTRIgine 25 MG TAB PO SCH ×2 (08:23→20:29)
[2020-05-26] MEDS: ADVANCED PROBIOTIC 1250 MG CAPSULE PO SCH (08:24)
[2020-05-26] MEDS: PANTOprazole 40 MG TAB PO SCH (08:24)
[2020-05-26] MEDS: LOPERAMIDE HCL 2 MG CAP PO PRN (08:25)
[2020-05-26] MEDS: OXcarbazepine 150 MG TABLET PO SCH ×2 (08:25→20:29)
--- NOTE | 2020-05-26 11:25 | Nephrology Progress Note ---
Date of Service May 26, 2020 Assessment & Plan (1) ESRD (end stage renal disease) on dialysis: * HD today due to the hol schedule - orders placed in EMR and HD RN notified * Outpatient HD prescription: [facility] (MWF 4hr 2K 2.5Ca F-180NR Qb400 EDW 84.5 kg) (2) Peripheral arterial disease: * Angiography per Dr. Johnson Wednesday (3) HTN (hypertension): * BP is currently acceptable * Labetalol held prior to dialysis (4) Toe necrosis: * On empiric IV Zosyn * Anticipated amputation Wednesday (5) Anemia: * Will provide TIFFANIE w/ HD Admission and Anticipated Discharge Date Admission Date: May 21, 2020 Subjective Mrs. Diaz was seen & examined in her hospital room this morning. She denied fever, angina or dyspnea. She is agreeable to the proposed vascular procedure on Wednesday. Review of Systems Constitutional: no fever Eyes: no problem reported Ear, Nose, Mouth, Throat: no problem reported Respiratory: no cough and no dyspnea Cardiovascular: no chest pain, no palpitations and no edema Gastrointestinal: no abdominal pain, no nausea and no diarrhea/loose stools Genitourinary: no dysuria and no hematuria Musculoskeletal: no back pain Integumentary: no rash Neurologic: no falls and no dizziness Physical Exam Constitutional: not in distress Eyes: PERRL, conjunctivae normal, anicteric sclerae ENMT: external ear and nose normal, oropharynx normal Neck: trachea midline, no thyromegaly Respiratory: normal respiratory effort, lungs clear to auscultation Cardiovascular: RRR, no murmur, no edema Extremities: + AV fistula (+ bruit) Gastrointestinal (Abdomen): normal bowel sounds, soft, nontender, no hepatosplenomegaly Skin: L 2nd toe w/ dry gangrene Neurologic: awake; not confused Results & Data ([facility]) Vital Signs (Past 12 Hours) Vital Signs Temp Pulse Pulse Resp BP Pulse Ox Pulse Ox 05/26/20 07:37 36.8 C 62 16 126/57 L 95 05/26/20 06:09 67 97 05/26/20 02:18 67 95 05/26/20 00:16 68 96 Laboratory Tests 05/26/20 05/26/20 05:59 05:59 WBC 6.73 Hgb 9.1 L Hct 28.4 L Plt Count 130 Sodium 131 L Potassium 3.7 Chloride 95 L Carbon Dioxide 26 BUN 24 H D Creatinine 4.49 H D Glucose 108 H PG Care Time/CCT Total # of Minutes Spent Total Time Spent with Patient: Total time spent is greater than 50% in coordination of care (as documented) at patient's floor/unit and/or counseling patient: Coding Level of Care Code 52271 Subseq Hosp Care Lvl 3 Diagnoses ESRD (end stage renal disease) on dialysis N18.6; Z99.2 Peripheral arterial disease I73.9 HTN (hypertension) I10 Hypertension type: essential hypertension Toe necrosis I96 Anemia D64.9 (1) HTN (hypertension) Hypertension type: essential hypertension Qualified Code(s): I10 - Essential (primary) hypertension
[2020-05-26] MEDS: ACETAMINOPHEN 325 MG TAB PO PRN (13:00)
[2020-05-26] MEDS: LABETALOL HCL 200 MG TAB PO SCH ×3 (13:02→20:30)
--- NOTE | 2020-05-26 15:13 | Hospitalist Progress Note ---
Date of Service May 26, 2020 Assessment & Plan (1) Arteriosclerotic gangrene: Gangrenous left second toe. Cellulitis improving. Continue Zosyn and Vancomycin. Blood cultures preliminarily negative. Toe culture negative. Dr. Johnson planning for arteriography with possible balloon and stenting of the left popliteal artery tomorrow. NPO after midnight. Eliquis is on hold. Will likely need amputation of the left second toe after arteriography. Business Solutions Director Dr. Green consulted. Recent ECHO showing ECHO with normal LV size/function. EF 60-65%, no wma. Mod LVH. Severe L atrial dilation, mod R atrial dilation, mild-mod TR, severe pulmonary HTN with RSVP 64mmHg, no vegetations. (2) ESRD (end stage renal disease) on dialysis: (3) Anemia: of chronic disease. H&H stable at 9.1 and 28.4. Continue to monitor. (4) Peripheral arterial disease: As above. Arteriography planned with Dr. Johnson tomorrow. (5) Obstructive sleep apnea: CPAP at night. (6) Diabetes: Most recent HgbA1C 4.6. Continue to monitor glucose while inpatient. Weight loss recommeneded. (7) Gastroesophageal reflux disease: Stable. On omeprazole as outpatient- Protonix while inpatient. (8) Allergic rhinitis: Continue Zyrtec (9) Atrial fibrillation: Rate controlled. Eliquis on hold for arterial intervention tomorrow. Continue labetalol 200mg Sun/Tues/Thurs/Sat and 200mg BID MWF. (10) Tremor: Continue lamotrigine 25mg BID and Trileptal 150mg AM/300mg HS. (11) Cirrhosis: Reported in history. Stable. (12) DVT prophylaxis: Eliquis on hold for surgical intervention tomorrow with Dr. Johnson. (13) Chronic pain: Takes 1 tab of hydrocodone acetaminophen PO every 12 hours at home. Improved with oxycodone while inpatient. Continue PRN. Admission and Anticipated Discharge Date Admission Date: May 21, 2020 Subjective 75 yo female with ESRD on dialysis admitted for necrotic gangrenous left second toe. Patient c/o pain 7/10 this afternoon of the left foot. She denies n/v. She is afebrile. She remains on Zosyn and Vancomycin. She did undergo HD today. Plan is to undergo arteriography with possible balloon and stenting of left popliteal artery tomorrow with vascular surgery. Review of Systems Constitutional: no fever and no chills Eyes: no worsening vision Ear, Nose, Mouth, Throat: + dizziness (only dizzy after being rolled by nursing staff from side to side and moved to a different bed) Respiratory: no dyspnea Cardiovascular: no chest pain Gastrointestinal: no abdominal pain, no nausea and no vomiting Psychiatric: no confusion Physical Exam Physical Exam: Temp Pulse Resp BP Pulse Ox 37.3 C 77 16 139/63 95 05/26/20 14:00 05/26/20 14:00 05/26/20 07:37 05/26/20 14:00 05/26/20 07:37 Patient is afebrile. Vital signs stable. Constitutional: + obese; no acute distress ENMT: Ears: no hearing impairment Neck: normal visual inspection Respiratory: normal respiratory effort, lungs clear to auscultation Cardiovascular: RRR, no murmur, no edema Gastrointestinal (Abdomen): Inspection/Auscultation: normal bowel sounds Percussion/Palpation: abdomen soft; abdomen nontender Psychiatric: A+Ox3, euthymic affect Results & Data Results & Data ([facility]) Vital Signs (Past 12 Hours) Vital Signs Temp Pulse Pulse Pulse Pulse Resp BP 05/26/20 14:00 37.3 C 77 05/26/20 13:20 78 132/61 05/26/20 13:00 73 149/68 H 05/26/20 12:40 75 155/59 H 05/26/20 12:20 76 142/66 H 05/26/20 12:00 74 136/69 05/26/20 11:40 66 133/53 L 05/26/20 11:20 74 118/57 L 05/26/20 11:00 69 124/61 05/26/20 10:40 76 113/56 L 05/26/20 10:20 72 114/56 L 05/26/20 10:00 66 114/56 L 05/26/20 09:40 70 118/53 L 05/26/20 09:30 69 130/60 05/26/20 09:21 37.3 C 68 05/26/20 07:37 36.8 C 62 16 05/26/20 06:09 67 BP Pulse Ox Pulse Ox 05/26/20 14:00 139/63 05/26/20 13:20 05/26/20 13:00 05/26/20 12:40 05/26/20 12:20 05/26/20 12:00 05/26/20 11:40 05/26/20 11:20 05/26/20 11:00 05/26/20 10:40 05/26/20 10:20 05/26/20 10:00 05/26/20 09:40 05/26/20 09:30 05/26/20 09:21 05/26/20 07:37 126/57 L 95 05/26/20 06:09 97 PG Care Time/CCT Total # of Minutes Spent Total Time Spent with Patient: Total time spent is greater than 50% in coordination of care (as documented) at patient's floor/unit and/or counseling patient: Coding Level of Care Code 74973 Subseq Hosp Care Lvl 2 Medical Decision Making Moderate Complexity Diagnoses Arteriosclerotic gangrene I70.269 ESRD (end stage renal disease) on dialysis N18.6; Z99.2 Anemia D64.9 Peripheral arterial disease I73.9 Obstructive sleep apnea G47.33 Diabetes E11.9 Chronic kidney disease stage: on chronic dialysis Diabetes mellitus complication detail: with chronic kidney disease Diabetes mellitus termite control service representative insulin use: without senior care use Gastroesophageal reflux disease K21.9 Allergic rhinitis J30.9 Atrial fibrillation I48.91 Tremor R25.1 Cirrhosis K74.60 DVT prophylaxis Z29.9 Chronic pain G89.29 (1) Diabetes Chronic kidney disease stage: on chronic dialysis Diabetes mellitus complication detail: with chronic kidney disease Diabetes mellitus senior care insulin use: without termite control service representative use
[2020-05-26] MEDS: CETIRIZINE HCL 10 MG TABLET PO SCH (15:55)
[2020-05-27] MEDS: PIPERACILLIN/TAZOBACTAM 4.5 GM in DEXTROSE 5% 100 ML IV SCH ×2 (02:50→13:59)
[2020-05-27 06:33] LABS: Hematocrit (blood only) 30.5 % (37-47); Hemoglobin 9.4 g/dL (12.0-16.0); Mean Corpuscular Hemoglobin 30.9 pg (25-34); Mean Corpuscular Hgb Conc 30.8 g/dL (32-36); Mean Corpuscular Volume 100.3 fL (80-100); Mean Platelet Volume 9.3 fL (7.4-10.4); Platelet Count 145 K/uL (130-400); RDW Coefficient of Variation 16.7 % (11.5-14.5); RDW Standard Deviation 60.9 fL (36.4-46.3); Red Blood Count 3.04 M/uL (4.2-5.4); White Blood Count 6.68 K/uL (4.8-10.8)
[2020-05-27 06:39] LABS: INR 1.1 (0.9-1.1); Prothrombin Time 11.3 Seconds (9.0-12.0)
[2020-05-27 06:59] LABS: BUN Creatinine Ratio 3.9 (10-20); Calcium 8.5 mg/dl (8.5-10.1); Creatinine Clr Calc Pharmacy 14.2 ml/min; Est GFR (African American) 15.6; Est GFR (Non-African American) 13.5; Potassium 3.6 mmol/L (3.5-5.1)
[2020-05-27] MEDS: lamoTRIgine 25 MG TAB PO SCH (07:05)
[2020-05-27] MEDS: ADVANCED PROBIOTIC 1250 MG CAPSULE PO SCH (07:06)
[2020-05-27] MEDS: PANTOprazole 40 MG TAB PO SCH (07:06)
[2020-05-27] MEDS: OXcarbazepine 150 MG TABLET PO SCH (07:06)
[2020-05-27] MEDS: CALCIUM ACETATE 667 MG CAP/TAB PO SCH (07:07)
[2020-05-27] MEDS: LABETALOL HCL 200 MG TAB PO SCH (07:07)
--- NOTE | 2020-05-27 07:50 | History & Physical Bridge Note ---
Date of Service May 27, 2020 History & Physical Bridge Note Patient for arteriography with intervention of her left lower extremity. I have discussed the risks options and benefits of the procedure with the patient. The patient understands the risks options and benefits and agrees to the procedure. I have examined the patient, reviewed the History & Physical and in the interval since the performance of the History & Physical I have noted the following changes of clinical significance: no changes noted
--- NOTE | 2020-05-27 08:32 | Pharmacy Report ---
Pharmacy Abx Dose Short Note - Date of Service May 27, 2020 - Assessment & Plan Assessment * 75 year old F receiving Vancomycin + Zosyn for treatment of Left second necrotic gangrenous toe with associated left lower extremity cellulitis thought to be secondary to PAD and DM * Day # 7 of antimicrobial therapy Plan Vancomycin * Random level of 15.9 mcg/mL is therapeutic * No hemodialysis orders are currently entered. Patient was dialyzed yesterday. UOP is not being documented. * Will order random level w/ AM labs daily. * Plan to redose vanco when level less than 15 on non-HD day. Plan to redose after HD if pre-HD level indicates a post-HD level would be < 15-20 mcg/mL Zosyn * Continue 4.5gm ext-infusion Q 12 hours for eCrCl < 20 / ESRD on HD Pharmacy will continue to follow and will adjust dose/frequency as necessary. Thank you.
[2020-05-27] MEDS ORDERED: HEPARIN SOD (PORCINE) 1000 UNIT/ML 10 ML VIAL ONE (09:54)
[2020-05-27] MEDS ORDERED: fentaNYL citrate 100 MCG/2 ML VIAL ONE (09:54)
[2020-05-27] MEDS ORDERED: MIDAZOLAM HCL 1 MG/ML 2ML VIAL ONE (09:55)
--- NOTE | 2020-05-27 09:56 | Pre Anesthesia Assessment ---
Date of Service May 27, 2020 Pre Sedation Assessment Vital Signs Temp Pulse Pulse Pulse Resp BP BP 05/27/20 07:23 85 18 153/66 H 05/27/20 07:10 37 C 70 16 145/86 H 05/26/20 23:17 37.2 C 88 15 131/72 05/26/20 15:18 36.7 C 72 18 128/66 05/26/20 14:00 37.3 C 77 139/63 05/26/20 13:20 78 132/61 05/26/20 13:00 73 149/68 H 05/26/20 12:40 75 155/59 H 05/26/20 12:20 76 142/66 H 05/26/20 12:00 74 136/69 05/26/20 11:40 66 133/53 L 05/26/20 11:20 74 118/57 L 05/26/20 11:00 69 124/61 05/26/20 10:40 76 113/56 L 05/26/20 10:20 72 114/56 L 05/26/20 10:00 66 114/56 L Pulse Ox 05/27/20 07:23 94 05/27/20 07:10 96 05/26/20 23:17 92 05/26/20 15:18 95 05/26/20 14:00 05/26/20 13:20 05/26/20 13:00 05/26/20 12:40 05/26/20 12:20 05/26/20 12:00 05/26/20 11:40 05/26/20 11:20 05/26/20 11:00 05/26/20 10:40 05/26/20 10:20 05/26/20 10:00 Cardiovascular RRR, no murmur, no edema Respiratory normal respiratory effort, lungs clear to auscultation Pre-Sedation Airway Assessment Smoking Status: Never smoker Hx Sleep Apnea: Yes Short, Thick Neck: No Thyromental Distance: > or= 3.5 Finger Breadths Oral Cavity: + WNL Mallampati Class: II ASA: ASA3 NPO Status Date of Last Intake of Fluids: 05/27/20 Time of Last Intake of Fluids: 06:00 Date of Last Intake of Solid Food: 05/26/20 Time of Last Intake of Solid Foods: 20:00 Procedure Planning Contraindications for Sedation: none Current Medications Reviewed: Yes Notes The planned sedation has been discussed with the patient. Informed Consent was obtained. I have identified the patient, determined the appropriateness of sedation and have assessed the patient immediately prior to the procedure. All medicine(s) and interventions are by my order.
[2020-05-27] MEDS ORDERED: LIDOCAINE HCL 1% 20 ML VIAL INFIL ONE (10:13)
[2020-05-27] MEDS ORDERED: VISIPAQUE IV ONE (10:22)
--- NOTE | 2020-05-27 10:31 | Nephrology Progress Note ---
Date of Service May 27, 2020 Assessment & Plan (1) ESRD (end stage renal disease) on dialysis: ESRD on HD, admitted with gangrenous toe. Went for angioplasty. --plan for HD tomorrow --dose meds for GFR <10, low K diet --continue renal cap and phos binder. Will follow Admission and Anticipated Discharge Date Admission Date: May 21, 2020 Subjective Kalyani went for angioplasty. Vitals stable, electrolyte acceptable. Results & Data ([facility]) Vital Signs (Past 12 Hours) Vital Signs Temp Pulse Pulse Pulse Resp BP Pulse Ox 05/27/20 10:23 82 18 129/70 94 05/27/20 10:18 77 18 138/65 98 05/27/20 10:13 75 18 124/38 L 98 05/27/20 10:08 74 18 126/61 98 05/27/20 10:03 75 18 147/62 H 99 05/27/20 10:00 78 18 147/62 H 100 05/27/20 07:23 85 18 153/66 H 94 05/27/20 07:10 37 C 70 16 145/86 H 96 05/26/20 23:17 37.2 C 88 15 131/72 92 PG Care Time/CCT Total # of Minutes Spent Total Time Spent with Patient: Total time spent is greater than 50% in coordination of care (as documented) at patient's floor/unit and/or counseling patient: Coding Level of Care Code 38258 Subseq Hosp Care Lvl 2 Diagnoses ESRD (end stage renal disease) on dialysis N18.6; Z99.2
--- NOTE | 2020-05-27 10:32 | Procedure Note ---
Angiogram Post Procedure Fluoroscopy Time (minutes): 6.1 Conscious Sedation Time (minutes): 25 Radiation (mGy): 104 Contrast: 15 Post Operative Report Pre & Post Diagnosis Operation Date: 05/27/20 10:00 Pre-Op Diagnosis: Gangrene of Left Foot, Second Toe Post-Op Diagnosis: Gangrene of Left Foot, Second Toe I identified the patient and participated in the time-out.: Yes Procedure Operation Date: 05/27/20 10:00 Actual Procedures p Left Leg Ateriogram, Mechanical Closure of Right Femoral Artery, Moderate Sedation from 5720-0074(Right) - Juan Johnson MD Surgeon Juan Johnson MD Asset Liability Analyst None Estimated Blood Loss 5 Findings Consistent with Post-Op Diagnosis Specimens None Anesthesia Type RN Sedation Complications none Disposition Accompanied Patient To Recovery: No Disposition: Recovery Room Indications This is a 75-year-old female who has gangrene of the left second toe. On ultrasound she was found to have a severe stenosis of her left popliteal artery. Arteriography with possible invention was recommended. I have discussed the risks options and benefits of the procedure with the patient. The patient understands the risks options and benefits and agrees to the procedure. Description of Procedure The patient was taken to the angiogram suite and placed in the supine position. Both groins were then prepped and draped in a sterile manner. Patient was identified and timeout was performed. After local anesthetic was administered a percutaneous puncture was made in the right common femoral artery. A 5 Maltese sheath was inserted. The 035 Glidewire was then inserted into the aorta from the groin. We attempted to cannulate the left side from the right using a rim catheter. This was unsuccessful. We therefore used a mon's hook which allowed us to cannulate the left iliac without difficulty. Once the wire was passed down to the common femoral artery we switched out the mon's hook for a quick cross catheter. Arteriography was then performed. We did do an angiogram through the rim prior to cannulating the left side which showed the left common and external iliac arteries to be widely patent. Arteriogram of the lower extremity showed the common femoral profundofemoral and superficial femoral arteries to be widely patent without any evidence of stenosis. There was three-vessel runoff from the anterior tibial origin level all the way down to the ankle and foot. The popliteal artery itself showed one area of mild stenosis. This was in the range of 40 to 50%. Being that the narrowing was not that severe and she had good Doppler signals in the foot we elected not to treat this at this time. Wire and catheter were then removed. Puncture site was then closed using a Star closure device. Adequate stasis was noted.The patient left the operation room in satisfactory condition and tolerated the procedure well. All needle and sponge counts were correct at the end of the procedure. I attest to the content of the Intraoperative Record and any orders documented therein. Any exceptions are noted below.
--- NOTE | 2020-05-27 10:34 | Post Anesthesia Assessment ---
Date of Service May 27, 2020 Post Sedation Assessment Vital Signs Temp Pulse Pulse Pulse Resp BP BP 05/27/20 10:28 76 18 143/75 H 05/27/20 10:23 82 18 129/70 05/27/20 10:18 77 18 138/65 05/27/20 10:13 75 18 124/38 L 05/27/20 10:08 74 18 126/61 05/27/20 10:03 75 18 147/62 H 05/27/20 10:00 78 18 147/62 H 05/27/20 07:23 85 18 153/66 H 05/27/20 07:10 37 C 70 16 145/86 H 05/26/20 23:17 37.2 C 88 15 131/72 05/26/20 15:18 36.7 C 72 18 128/66 05/26/20 14:00 37.3 C 77 139/63 05/26/20 13:20 78 132/61 05/26/20 13:00 73 149/68 H 05/26/20 12:40 75 155/59 H 05/26/20 12:20 76 142/66 H 05/26/20 12:00 74 136/69 05/26/20 11:40 66 133/53 L 05/26/20 11:20 74 118/57 L 05/26/20 11:00 69 124/61 05/26/20 10:40 76 113/56 L Pulse Ox 05/27/20 10:28 94 05/27/20 10:23 94 05/27/20 10:18 98 05/27/20 10:13 98 05/27/20 10:08 98 05/27/20 10:03 99 05/27/20 10:00 100 05/27/20 07:23 94 05/27/20 07:10 96 05/26/20 23:17 92 05/26/20 15:18 95 05/26/20 14:00 05/26/20 13:20 05/26/20 13:00 05/26/20 12:40 05/26/20 12:20 05/26/20 12:00 05/26/20 11:40 05/26/20 11:20 05/26/20 11:00 05/26/20 10:40 Recovery Score Activity: Moves 4 extremities Respiration: Deep Breath/Cough Circulation: +/-20% PreAnes Value Consciousness: Fully Awake Oxygen Saturation: > 92% On Room Air Post Anesthesia Score: 10 Discharge Sedation Level of Care: Fast Track Phase II Post Sedation Plan On clinical assessment, the patient appears to have tolerated the sedation without complications. Patient is recovering as anticipated. Patient will continue to be monitored by nursing and may be discharged when sedation discharge criteria are met per below protocol. Upon Completions of procedure up to 15 minutes continue every 5 minute vital signs and the P.A.R. score; then discharge to a Phase I or Fast Track to Phase II per the following guidelines: * Discharge Patient to appropriate Phase II area if PAR is 8 or greater or return to pre- procedure baseline. The post - procedure orders will be as directed. * If PAR score is less than 8 or not return to pre-procedure baseline then patient will follow Phase I monitoring till PAR is reached for Phase II. The Phase I may be done in procedure room or may call to secure a Phase I area. * If naloxone or flumazenil are used for reversal, hold in Phase I for continued monitoring from when last reversal dose was given for a minimum of 60 minutes or longer pending the nurse and/or physician discretion of patient condition before discharge to Phase II. Please call the Sedation Physician to re-evaluate and complete post-note for discharge to Phase II area. Do NOT discharge from procedure sedation or Phase 1 until post- sedation evaluation note is complete by procedure /sedation MD Sedation Discharge Instructions to be given to the patient at discharge to home.
--- NOTE | 2020-05-27 10:35 | Communication Note ---
Date of Service: May 27, 2020 Patient had arteriography today which showed mild to moderate stenosis of her popliteal and a focal area. This was not compromising flow. No intervention was done at this point. She has excellent Doppler signals in her foot. The toe amputation should heal without difficulty from a large vessel occlusive disease. Recommend the patient be discharged and return for outpatient toe amputation. The toe itself is dry gangrene and does not need to be urgently amputated. We will schedule for after the holiday for her outpatient toe amputation.
[2020-05-27] MEDS: oxyCODONE HCL IR 5 MG TAB (IMMEDIATE RELEASE) PO PRN (12:37)
--- NOTE | 2020-05-27 15:22 | Discharge Summary ---
Date of Service May 27, 2020 Admission HPI Per Admitting Provider 75-year-old female with a past medical history of end-stage renal disease on hemodialysis Wednesday and Wednesday, obstructive sleep apnea, diabetes, hypertension, hyperlipidemia, A. fib on Eliquis, obesity, cirrhosis, who was referred to the emergency department from her PCPs office for evaluation of a necrotic left second toe thought to be secondary to peripheral arterial disease in the setting of patient with end-stage renal disease. Patient reports a history of left foot and toe pain for the past 4 weeks progressively worsening with associated cellulitis which he states has been treated with numerous antibiotics without any significant improvement. The patient's primary care provider had made vascular surgery aware the patient, and initially scheduled her for outpatient vascular studies. Given her presentation in the office today her PCP insisted the patient present to the emergency department, vascular surgery was made aware acute worsening of the patient's lower extremity infections, recommending she be admitted for further evaluation, management and consultation. During our interview the patient confirmed the history as described above. Stating that she went to her PCPs office today and upon evaluating her foot he recommended that she proceed to the emergency department. Otherwise the patient reports she is in her usual state of health, denying constitutional symptoms including fever, chills, nausea, vomiting, diarrhea, other concerning signs or symptoms. Patient is endorsing some pain in her left foot. Patient reports tolerating her diet, stooling, sleeping well, no acute concerns, all questions were answered. On arrival to the emergency department, routine labs were obtained, a CBC demonstrated a white count of 9.54, with a neutrophil predominance, INR of 1,, BMP with a creatinine of 4.36, liver function studies normal, hypoalbuminemia with an albumin of of 3. X-ray imaging studies demonstrated no acute fracture and no radiographic evidence of acute osteomyelitis within the left foot, ultrasound Doppler studies are pending. Principal Diagnosis gangenous toe, cellulitis Discharge Exam Constitutional WD/WN, vitals as above Respiratory normal respiratory effort, lungs clear to auscultation Cardiovascular RRR, no murmur, no edema Gastrointestinal (Abdomen) normal bowel sounds, soft, nontender, no hepatosplenomegaly Musculoskeletal no cyanosis or clubbing, extremities motor strength 5/5 Skin no rashes, warm and dry improving cellulitis - below area of demarcation, area of erythema on dorsal foot around necrotic toe Neurologic moves all extremities and awake Psychiatric A+Ox3, euthymic affect Discharge Data Allergies Allergy/AdvReac Type Severity Reaction Status Date / Time ANGEL Inhibitors Allergy Mild Cough Verified 05/21/20 19:45 doxycycline Allergy Mild upset Verified 05/21/20 19:45 stomach simvastatin Allergy Mild "did not Verified 05/21/20 19:45 feel well while taking" metformin Allergy Unknown does not Verified 05/21/20 19:45 remember pioglitazone Allergy Unknown ? NOT SURE Verified 05/21/20 19:45 rosiglitazone Allergy Unknown NOT SURE Verified 05/21/20 19:45 Tsuklye-Svp-Xgy Reductase AdvReac Intermediate LEGS HURT Verified 05/21/20 19:45 Inhibitor ciprofloxacin AdvReac Mild UPSET Verified 05/21/20 19:45 STOMACH levofloxacin AdvReac Mild ?NAUSEA Verified 05/21/20 19:45 escitalopram AdvReac Unknown Verified 05/21/20 19:45 homatropine AdvReac Unknown Verified 05/21/20 19:45 [From Hycodan (with homatropin)] oxycodone AdvReac Unknown Verified 05/21/20 19:45 CAT GUT SUTURES Allergy Intermediate SLOW Uncoded 05/21/20 19:45 HEALING,INFLAMED TISSUE Consultations 05/21/20 18:24 ED Decision to Admit Stat 05/21/20 22:09 Consult Nephrology Routine Consult Vascular Surgery Routine 05/22/20 14:34 Consult Podiatry Routine Procedures Performed Operation Date: 05/27/20 10:00 Actual Procedures p Left Leg Arteriogram, Mechanical Closure of Right Femoral Artery, Moderate Sedation from [id number](Right) - Juan Johnson MD Ordered Studies 05/21/20 17:27 US arterial duplex LE BI Stat 05/27/20 07:29 EV angio LE LT Routine Hospital Course (1) Arteriosclerotic gangrene: 75-year-old female with a past medical history of end-stage renal disease on hemodialysis MWF, SERENITY on CPAP, DM, HTN, HLD, Afib on Eliquis, Cirrhosis, Obesity was referred to the emergency department from her PCPs office for evaluation of a necrotic left second toe thought to be secondary to peripheral arterial disease in the setting of patient with end-stage renal disease after failure of multiple outpatient rounds of several abx for cellulitis Left second necrotic gangrenous toe with associated left lower extremity cellulitis thought to be secondary to PAD and DM Patient is unaware of the exact date that her toe began to develop an infection. However it is significantly progressed for at least the past 4 weeks. She had previously arranged to have outpatient arterial studies performed and to follow- up with Dr. Johnson in the outpatient realm. She was evaluated by her PCP who felt that she needed to proceed to the hospital for further evaluation and management of her left lower extremity. * Arterial study with stenosis * Consulted vascular surgery -- arteriography 05/27 - no intervention necessary. Per vascular surgery, can be discharged today. Can resume Eliquis tonight. It is important to patient that she be home at [place] as her 87 year old sister will be visiting which is rare. Dr. Johnson felt that as the gangrene was dry, could wait until after the holiday for amputation so she will follow outpatient. No discharge instructions necessary concerning site care per Dr. Johnson * Given Zosyn, Vancomycin inpatient. Home with Augmentin and doxy, she reports she can tolerate doxy despite it being listed as "stomach upset" in her allergies. * Blood Cultures ngtd * CXR with cardiomegaly and mild pulm vasc congestion. No sob reported although patient without much exercise tolerance/activity. * Inflammatory markers -- elevated although has ESRD which can cause elevated sed rate -- ESR 57, CRP 7.46 * Procal 0.44 * Obtained ECHO as does not appear to have any in our system recently (Only one from 2016 with severe LVG, mild LA dilation. Does have SERENITY and pulm HTN with R heart failure per Dr. Whitley's note) --> ECHO with normal LV size/function. EF 60-65%, no wma. Mod LVH. Severe L atrial dilation, mod R atrial dilation, mild-mod TR, severe pulmonary HTN with RSVP 64mmHg, no vegetations * Culture from 2nd toe -- mod counts mixed skin patrick, no further id/sens * cellulitis improving - below line of demarcation, patient reports much less red than when she initially came in End-stage renal disease with anemia * MWF HD patient - had HD 05/22, 05/24, can resume usual outpatient regimen * Nephrology on consult * Continue Bumex 2 mg p.o. twice daily * MCV >100 -- B12 529 , FOlate >20. F/u outpt Chronic pain * Takes 1 tab of hydrocodone acetaminophen p.o. every 12 hours at home. * Ordered oxycodone PO which was reportedly very helpful and will continue to utilize this for pain control (listed as allergy but patient states she doesn't recall any specific issue) -- continue prn but increased to 2 tablets prn with improvement of control Obstructive sleep apnea, nocturnal hypoxia * discussed findings of overnight pulse ox study with patient and that I recommend she have oxygen until she can do a sleep study. She declines supplemental oxygen. She verbalized her understanding that having low oxygen saturations at night could result in increased strain on her heart, changes in mentation, or even but she says "if that's how I , that's how I ". She will follow up with her primary care provider if sh changes her mind. 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 DVT Prophylaxis * Eliquis 2.5mg BID (2) ESRD (end stage renal disease) on dialysis: (3) Anemia: (4) Peripheral arterial disease: (5) Obstructive sleep apnea: (6) Diabetes: (7) Gastroesophageal reflux disease: (8) Allergic rhinitis: (9) Atrial fibrillation: (10) Tremor: (11) Cirrhosis: (12) DVT prophylaxis: (13) Chronic pain: Total Time Total Time Spent Total Time Spent (In Minutes): greater than 30 minutes Discharge Plan Discharge Items Patient Disposition: Home - Self-Care Reason For Visit: CONTRAINDICATED Discharge Diagnosis: Gangrene Activity: Resume your previous activity Non-emergency contact: Primary Care Provider Call non-emergency contact if: you have any medication questions Follow-up/Referrals: Teresita East CRNP [Primary Care Provider] - (follow up one week ) Diet: Dialysis Renal Addtl Attending Provider Instructions: (1) Arteriosclerotic gangrene: Gangrenous left second toe. You received Zosyn and vancomycin while you were here. You will continue with Augmentin and doxycycline for home. I have given you enough for 3 weeks, you may not need to take all 3 weeks, please check with Dr. Johnson concerning length of antibiotics needed after you have scheduled your procedure to amputate your toe. 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 Provider Instructions: You may shower Pending Studies at Discharge: No Stand-Alone Forms: My [employer], Smoking Cessation Medications and DC Order Prescriptions: New amoxicillin-pot clavulanate [Augmentin] 500-125 mg tablet 1 tab PO DAILY Qty: 21 RF: 0 doxycycline hyclate 100 mg capsule 100 mg PO BID 21 Days Qty: 42 RF: 0 Continued lamotrigine 25 mg tablet 25 mg PO BID 30 Days Qty: 60 RF: 3 promethazine 25 mg tablet 25 mg PO TID PRN (Reason: nausea and vomiting on dialysis days) Qty: 30 RF: 3 omeprazole 40 mg capsule,delayed release(DR/EC) 40 mg PO DAILY Qty: 90 RF: 1 bumetanide 2 mg tablet 2 mg PO BID Qty: 180 RF: 1 biotin 1 mg capsule 1 mg PO BID RF: 0 ProRenal 8 mg iron-800 mcg-1,000 unit tablet 2 tab PO QDD RF: 0 Eliquis 5 mg tablet 2.5 mg PO BID RF: 0 labetalol 200 mg tablet See Rx Instructions .ROUTE .COMPLEX RF: 0 loperamide [Imodium A-D] 2 mg capsule 2 mg PO Q6H PRN (Reason: Diarrhea) RF: 0 hydrocodone-acetaminophen 5-325 mg tablet 1 tab PO Q12H RF: 0 oxcarbazepine 300 mg tablet See Rx Instructions .ROUTE .COMPLEX RF: 0 cetirizine [Zyrtec] 10 mg Tablet 10 mg PO QDD RF: 0 Probiotic 3 billion cell capsule 3,000 mmu cells PO BIDM RF: 0 cranberry 400 mg capsule 800 mg PO BID RF: 0 calcium acetate(phosphat bind) 667 mg capsule 667 mg PO BID RF: 0 Discharge Orders: Discharge Order (Routine); Ordered 05/27/20 Ordered By: Zohra Champion Admission Data Admit Date/Time: 05/21/20 20:31 Attending Provider: Ramon Otero Admit Provider: Joe Seymour I. Primary Care Provider: Teresita East Other Providers: Aidan Clifton ; Mar Seymour ; Helder Sierra ; Tin Marrero ; Debbie Hopkins ; José Whitley ; Juan Johnson ; Juli Slade Other Interventions: Discharge Summary Assessment (RN) Last Done: 05/27/20 16:23 Supervising Physician Co-Signing Physician Notes D/W APC Akira Patient seen and examined at bedside, obtained history and physical examination. I reviewed above note and agree with it. I discussed discharge plan with APC and patient. Patient will continue on antibiotic for gangrenous toe for 3 weeks Coding Level of Care Code D/C Day Management >30 mins Diagnoses Arteriosclerotic gangrene I70.269 ESRD (end stage renal disease) on dialysis N18.6; Z99.2 Anemia D64.9 Peripheral arterial disease I73.9 Obstructive sleep apnea G47.33 Diabetes E11.9 Chronic kidney disease stage: on chronic dialysis Diabetes mellitus complication detail: with chronic kidney disease Diabetes mellitus assistant terminal manager insulin use: without long-term use Gastroesophageal reflux disease K21.9 Allergic rhinitis J30.9 Atrial fibrillation I48.91 Tremor R25.1 Cirrhosis K74.60 DVT prophylaxis Z29.9 Chronic pain G89.29
== END 2020-05-27 16:56 | disposition home or self-care (01) | DRG 299 ==
LOC: ED 16:12 → 3W 20:31 → SUATTDRO 20:31 → 3W 21:42

== ENCOUNTER 2020-10-15 05:33 | Inpatient (IN) ==
--- NOTE | 2020-10-10 13:27 | Anesthesiology Consultation ---
Date of Service October 10, 2020 Assessment & Plan (1) Encounter for pre-operative examination: Chart Review Chart Review: Acceptable Risk for Surgery (pending anesthesia evaluation DOS and DOS labs ) and Patient NOT seen in Pre Admission Testing -Will need PRP checked DOS (secondary to dialysis) - Check BSG AM DOS Per nursing assessment 10/10/2020, patient resides in [facility]. Wears mask, uses good hand hygiene and socially distances. Does go to dialysis Mon, Wed, Fri. No known Covid positive contacts or Covid related symptoms. No known Covid infection in the past 90 days. Preop Covid testing done 10/08/[address] Johnson's office= results pending. Left second and third toe amputation 06/17/2020 = done under MAC anesthesia. No anesthesia issues noted per anesthesia record. Left IM nail 09/18/18= Done under GA with Grade 1 view with MAC #3. ETT #7.5. No anesthesia issues noted per anesthesia record. History Surgery Operation Date: 10/15/20 08:00 Proposed Procedures p Left Foot Transmetatarsal Amptation - Juan Johnson MD Height/Weight Height: 5 ft Weight: 75 kg Allergies Allergy/AdvReac Type Severity Reaction Status Date / Time simvastatin Allergy Mild "did not Verified 10/10/20 12:24 feel well while taking" metformin Allergy Unknown does not Verified 10/10/20 12:24 remember pioglitazone Allergy Unknown ? NOT SURE Verified 10/10/20 12:24 rosiglitazone Allergy Unknown NOT SURE Verified 10/10/20 12:24 Tiagpsr-Gmm-Eef Reductase AdvReac Intermediate LEGS HURT Verified 10/10/20 12:24 Inhibitor ANGEL Inhibitors AdvReac Mild Cough Verified 10/10/20 12:24 homatropine AdvReac Unknown Unknown Verified 10/10/20 12:24 [From Hycodan (with homatropin)] oxycodone AdvReac Unknown Nausea Verified 10/10/20 12:24 escitalopram AdvReac Unknown Verified 10/10/20 12:24 CAT GUT SUTURES Allergy Intermediate SLOW Uncoded 10/10/20 12:24 HEALING,INFLAMED TISSUE Medications Home Medications Medication Instructions Recorded Confirmed Last Taken cetirizine [Zyrtec] 10 mg PO QPM 07/07/18 10/10/20 06/16/20 17:00 ProRenal 2 tab PO QDD 07/15/19 05/06/21 01/10/21 09:00 biotin 1 mg capsule 1 mg PO BID cap 02/01/19 10/10/20 06/16/20 09:00 cranberry 400 mg capsule 800 mg PO BID 02/01/19 10/10/20 06/16/20 17:00 lactobacillus combination no.4 3 3,000 mmu cells PO BIDM cap 02/01/19 10/10/20 06/16/20 17:00 billion cell capsule promethazine 25 mg tablet 25 mg PO TID PRN #30 tab 02/21/20 10/10/20 06/14/20 09:00 calcium acetate(phosphat bind) 667 667 mg PO BID cap 03/12/20 10/10/20 06/16/20 17:00 mg capsule labetalol 200 mg PO UD 05/21/20 10/10/20 06/16/20 17:00 bumetanide 2 mg tablet 2 mg PO BID #180 tab 06/11/20 10/10/20 06/16/20 17:00 omeprazole 40 mg PO QAM 06/13/20 10/10/20 06/17/20 05:30 loperamide 2 mg capsule 2 mg PO Q6H PRN #60 cap 06/27/20 10/10/20 Unknown apixaban 5 mg tablet 2.5 mg PO BID #90 tab 07/17/20 10/10/20 Unknown lamotrigine 25 mg tablet 25 mg PO BID #60 tab 09/03/20 10/10/20 Unknown oxcarbazepine 300 mg tablet 300 mg PO .COMPLEX 30 Days #45 tab 09/03/20 10/10/20 Unknown hydrocodone 5 mg-acetaminophen 325 1 tab PO TID #90 tab 09/23/20 10/10/20 Unknown mg tablet ciprofloxacin HCl 500 mg PO BID 10/10/20 10/10/20 Unknown miconazole nitrate 2 % topical 1 applic TOPICAL DAILY #1 tube 10/10/20 10/10/20 Unknown ointment vitamins A,C,J-xdbo-[id number] 1 cap PO BID 10/10/20 10/10/20 Unknown [PreserVision AREDS] Past Medical History Medical History (Updated 10/10/20 @ 13:34 by Teresita Thurston PA-C) Anemia Chronic- Hgb 8.2-10.0 for past year Asymptomatic bilateral carotid artery stenosis Atherosclerosis without hemodynamically significant stenosis in the carotid arteries per 06/09/18 carotid doppler Atrial fibrillation On Eliquis- no cardioversion, follows with PCP. Broken arm [id number] SURGERY C. difficile colitis hx (2019) does have chronic diarrhea (r/t removal of gallbladder, per pt). Chronic pain Cirrhosis of liver Diabetes Hx of Type 2 IDDM -- no medications currently since placed on diaylsis. Diabetic nephropathy Disc degeneration, lumbar End stage renal disease DIALYSIS M/W/F [place] Erosive (osteo)arthritis GERD (gastroesophageal reflux disease) Gout hx Hiatal hernia HTN (hypertension) Hyperlipidemia Left ventricular hypertrophy Moderate/concentric per 05/2020 ECHO- no music composer at this time - follows with PCP Lymphedema r/t left arm fracture (unable to be repaired in the past) On anticoagulant therapy Osteoporosis no medications Peripheral arterial disease Pulmonary hypertension Per 05/23/20 ECHO= RV systolic pressure elevated > 60 mmHg (severe pulmonary hypertension RVSP 64 mmHg) Scoliosis Sleep apnea NO DEVICE Spinal stenosis Trigeminal neuralgia Follows with neuro- last seen 09/03/20- no acute issues. Usually stable on Lamictal and oxcarbazepine. Past Family History Family History Daughter Breast cancer Unknown Emphysema, unspecified Family/Other Family history of diabetes mellitus NEPHEW Other Family history non-contributory No family history of adverse response to anesthesia Past Surgical History Surgical History AV fistula L upper extremity H/O tubal ligation History of carpal tunnel surgery History of Neuroplasty Decompression Median Nerve At Carpal Tunnel History of cataract surgery RT/LEFT History of cholecystectomy History of colonoscopy History of dilation and curettage History of ERCP MULTIPLE History of esophagogastroduodenoscopy (EGD) History of open reduction and internal fixation (ORIF) procedure Left Hip History of total knee replacement RT/LEFT Social History Smoking Status: Never smoker Do You Dip or Chew Tobacco: No Hx Alcohol Use: No Hx Substance Use: No substance use type: does not use Testing Laboratory Results 10/08/20= WBC: 4.86 H/H: 11.0/35.2 PLATELETS: 124 SODIUM: 136 POTASSIUM: 4.0 CHLORIDE: 100 CO2: 28 BUN: 23 CREATININE: 3.44 GLUCOSE: 107 PT: 15.3 PTT: 46 INR: 1.2 Electrocardiogram Date: 05/21/20 Findings: + AFIB @ (79bpm ) and + poor R wave progression (seen on prior ecg's as well) Low voltage criteria (Pt has subsequent ECHO on 05/23/20 with no RWMA; EKG also reviewed by Dr. 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 Cardiomegaly and mild pulmonary vascular congestion. No evidence of focal pulmonary consolidation Echocardiogram Date: 05/23/20 EF: 60-65% LV Function: normal RWMA: + none Other Findings: + LVH (Moderate/concentric) Mild to moderate TR Severe left atrial dilation. Moderate right atrial dilation. RV systolic pressure elevated > 60 mmHg (severe pulmonary hypertension RVSP 64 mmHg). There were no visualized valvular regurgitations on this technically difficult study. Other Testing Carotid doppler 06/09/18= Atherosclerosis without hemodynamically significant stenosis in the carotid arteries.
--- NOTE | 2020-10-14 12:08 | History & Physical Report ---
Date of Service October 14, 2020 Assessment & Plan (1) Osteomyelitis of ankle or foot, left, acute: Patient is admitted for a transmetatarsal amputation of the left foot. I have discussed the risks options and benefits of the procedure with the patient. The patient understands the risks options and benefits and agrees to the procedure. History of Present Illness Chief Complaint: Osteo of the left foot Primary Care Provider: Roderick Espino MD Mrs. Marte is an elderly female who presents for a follow-up visit regarding her left foot second and third toe amputations. This was performed originally back in June 2020, and has been chronically nonhealing since that time. She has been on antibiotics intermittently, and at her last visit here it was felt prudent to perform an MRI to evaluate for osteomyelitis. Patient denies any fevers chills nausea vomiting or other new concerns. She continues to dialyze Wednesday and Wednesday. Review of the patient's left foot MRI indicates osteomyelitis of the second and third metatarsal heads as well as marrow edema and a nondisplaced fracture of the fourth metatarsal head. Allergies Allergy/AdvReac Type Severity Reaction Status Date / Time simvastatin Allergy Mild "did not Verified 10/10/20 12:24 feel well while taking" metformin Allergy Unknown does not Verified 10/10/20 12:24 remember pioglitazone Allergy Unknown ? NOT SURE Verified 10/10/20 12:24 rosiglitazone Allergy Unknown NOT SURE Verified 10/10/20 12:24 Yuwxymc-Ynw-Zqc Reductase AdvReac Intermediate LEGS HURT Verified 10/10/20 12:24 Inhibitor ANGEL Inhibitors AdvReac Mild Cough Verified 10/10/20 12:24 homatropine AdvReac Unknown Unknown Verified 10/10/20 12:24 [From Hycodan (with homatropin)] oxycodone AdvReac Unknown Nausea Verified 10/10/20 12:24 escitalopram AdvReac Unknown Verified 10/10/20 12:24 CAT GUT SUTURES Allergy Intermediate SLOW Uncoded 10/10/20 12:24 HEALING,INFLAMED TISSUE Home Medications Medication Instructions Recorded Confirmed Type cetirizine [Zyrtec] 10 mg PO QPM 07/07/18 10/10/20 History ProRenal 2 tab PO QDD 12/19/18 10/10/20 History biotin 1 mg capsule 1 mg PO BID cap 02/01/19 10/10/20 History cranberry 400 mg capsule 800 mg PO BID 02/01/19 10/10/20 History lactobacillus combination no.4 3 3,000 mmu cells PO BIDM cap 02/01/19 10/10/20 History billion cell capsule calcium acetate(phosphat bind) 667 667 mg PO BID cap 03/12/20 10/10/20 History mg capsule labetalol 200 mg PO UD 05/21/20 10/10/20 History bumetanide 2 mg tablet 2 mg PO BID #180 tab 06/11/20 10/10/20 Rx loperamide 2 mg capsule 2 mg PO Q6H PRN #60 cap 06/27/20 10/10/20 Rx apixaban 5 mg tablet 2.5 mg PO BID #90 tab 07/17/20 10/10/20 Rx lamotrigine 25 mg tablet 25 mg PO BID #60 tab 09/03/20 10/10/20 Rx oxcarbazepine 300 mg tablet 300 mg PO .COMPLEX 30 Days #45 tab 09/03/20 10/10/20 Rx hydrocodone 5 mg-acetaminophen 325 1 tab PO TID #90 tab 09/23/20 10/10/20 Rx mg tablet ciprofloxacin HCl 500 mg PO BID 10/10/20 10/10/20 History miconazole nitrate 2 % topical 1 applic TOPICAL DAILY #1 tube 10/10/20 10/10/20 Rx ointment vitamins A,C,M-cnsr-yfnpuj 1 cap PO BID 10/10/20 10/10/20 History [PreserVision AREDS] omeprazole 40 mg capsule,delayed 40 mg PO QAM #90 cap 10/11/20 Rx release promethazine 25 mg tablet 25 mg PO TID PRN #30 tab 10/11/20 Rx Past Med/Surg History Medical History Anemia Chronic- Hgb 8.2-10.0 for past year Asymptomatic bilateral carotid artery stenosis Atherosclerosis without hemodynamically significant stenosis in the carotid arteries per 06/09/18 carotid doppler Atrial fibrillation On Eliquis- no cardioversion, follows with PCP. Broken arm [id number] SURGERY C. difficile colitis hx (2019) does have chronic diarrhea (r/t removal of gallbladder, per pt). Chronic pain Cirrhosis of liver Diabetes Hx of Type 2 IDDM -- no medications currently since placed on diaylsis. 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 Usually stable on Lamictal and oxcarbazepine. Surgical History AV fistula L upper extremity H/O tubal ligation History of carpal tunnel surgery History of Neuroplasty Decompression Median Nerve At Carpal Tunnel History of cataract surgery RT/LEFT History of cholecystectomy History of colonoscopy History of dilation and curettage History of ERCP MULTIPLE History of esophagogastroduodenoscopy (EGD) History of open reduction and internal fixation (ORIF) procedure Left Hip History of total knee replacement RT/LEFT Family History Daughter Breast cancer Unknown Emphysema, unspecified Family/Other Family history of diabetes mellitus NEPHEW Other Family history non-contributory No family history of adverse response to anesthesia Social History Smoking Status: Never smoker Second Hand Exposure: Yes (SPOUSE USED TO SMOKE); Do You Dip or Chew Tobacco: No; Hx Alcohol Use: No Hx Substance Use: No Preferred Language: Yoruba Communication Ability: Effective Visual Impairment: No Limitations Educational Consultant Required: No Beliefs That Will Affect Care: None marital status: Current Living Situation: Spouse current occupational status: retired Other Information That Helps Us Care for You: No Feels Safe at Home: Yes Safety Concerns: Feels Safe At This Time caffeine: Yes Seatbelt Use: always Assistive Devices: Denture - Upper and Wheelchair Assistive Devices Comment: BANDAGE LEFT FOOT-BOOT RIGHT FOOT Review of Systems All systems reviewed & are unremarkable except as noted in HPI & below Physical Exam Physical Exam: Constitutional: well developed and well nourished Respiratory:normal respiratory effort; no respiratory distress Cardiovascular: Rate/Rhythm: regular rate and regular rhythm Vessels: femoral pulses present; + AV fistula, Her left foot demonstrates nonpalpable distal pulses. Her second and third toe amputation site has copious serous drainage. She also appears to have erythema, edema and warmth of the distal portion of her foot including all of her toes. I do not appreciate any fluctuance. Musculoskeletal: Extremities: extremities normal to inspection Psychiatric: Orientation: alert and oriented x 3
[2020-10-15] MEDS ORDERED: ceFAZolin 1000MG 1,000 MG/7.5 ML SYR IV SCH (06:00)
[2020-10-15] MEDS ORDERED: SODIUM CHLORIDE 0.9% 1000ML 1,000 ML IV SCH (06:00)
[2020-10-15 06:27] LABS: BUN Creatinine Ratio 6.2 (10-20); Calcium 8.6 mg/dl (8.5-10.1); Creatinine Clr Calc Pharmacy 14.7 ml/min; Est GFR (African American) 17.4; Potassium 4.2 mmol/L (3.5-5.1)
[2020-10-15] MEDS ORDERED: BUPIVACAINE 0.5 % 5 MG/1 ML MPF 30ML VIAL ONE ×2 (06:35→07:07)
[2020-10-15] MEDS ORDERED: ePHEDrine sulfate 50 MG/ML SYR ONE (06:50)
[2020-10-15] MEDS ORDERED: fentaNYL citrate 100 MCG/2 ML VIAL ONE (06:50)
[2020-10-15] MEDS ORDERED: MIDAZOLAM HCL 1 MG/ML 2ML VIAL ONE (06:50)
[2020-10-15] MEDS ORDERED: LIDOCAINE HCL 2% 2 ML VIAL/AMP(20MG/ML) INFIL ONE (06:50)
[2020-10-15] MEDS ORDERED: PROPOFOL IV EMULSION 10 MG/ML 20 ML VIAL IV ONE (06:50)
[2020-10-15] MEDS ORDERED: LIDOCAINE HCL 1% 20 ML VIAL ONE (07:07)
--- NOTE | 2020-10-15 07:42 | History & Physical Bridge Note ---
Date of Service October 15, 2020 History & Physical Bridge Note I have examined the patient, reviewed the History & Physical and in the interval since the performance of the History & Physical I have noted the following changes of clinical significance: no changes noted
[2020-10-15] MEDS ORDERED: ATROPINE SULFATE 0.1 MG/ML 10ML SYR IV PRN (08:16)
[2020-10-15] MEDS ORDERED: ePHEDrine sulfate 50 MG/ML AMP IV PRN (08:16)
--- NOTE | 2020-10-15 09:32 | Operative Report ---
Post Operative Report Pre & Post Diagnosis Operation Date: 10/15/20 08:00 Pre-Op Diagnosis: Acute Osteomyelitis of Left Foot Post-Op Diagnosis: Acute Osteomyelitis of Left Foot I identified the patient and participated in the time-out.: Yes Procedure Operation Date: 10/15/20 08:00 Actual Procedures p Left Foot Transmetatarsal Amputation(Left) - Juan Johnson MD Surgeon Juan oJhnson MD Telecasting Technician Bart,PAC Estimated Blood Loss 50 Findings Consistent with Post-Op Diagnosis Specimens Left forefoot Drains Size 10 round Abdulkadir Anesthesia Type MAC Regional Complications none Disposition Accompanied Patient To Recovery: No Disposition: Recovery Room Indications This is a 75-year-old female diabetic with renal failure who underwent a second third toe amputation which has not healed. She had an MRI which showed ostial of the metatarsal heads. We recommend a transmetatarsal amputation. I have discussed the risks options and benefits of the procedure with the patient. The patient understands the risks options and benefits and agrees to the procedure. Description of Procedure The patient was taken the operating room placed in supine position. The foot was then prepped and draped in a sterile manner. The patient was identified and a timeout was performed. A fishmouth incision was made through the forefoot and the distal portion and through the plantar surface just before the toe line. The tissue was then dissected from the metatarsals. Metatarsals were then transected with the saw in the midportion. They were all of normal firmness. Once they were transected the metatarsals and forefoot was removed. The plantar flap and the dorsal flap were then inspected. Adequate hemostasis was obtained. #10 [place] drain was placed through separate stab wound into the base of the wound. Wound was irrigated with saline. Again it was inspected. After adequate hemostasis was noted the flaps were closed in 2 layers with interrupted Vicryls. Hung were used for the skin edges. Sterile dressings were applied to the wounds.The patient left the operation room in satisfactory condition and tolerated the procedure well. All needle and sponge counts were correct at the end of the procedure. Marina Gardiner Pac assisted due to lack of resident availability and was radha mahmood for positioning, draping, retraction, wound closure deep layers, subcutaneous tissue, and skin closure and was necessary for assisting with the case. I attest to the content of the Intraoperative Record and any orders documented therein. Any exceptions are noted below.
[2020-10-15] MEDS: fentaNYL citrate 100 MCG/2 ML VIAL IV PRN ×4 (09:36→09:51)
[2020-10-15] MEDS ORDERED: HYDROmorphone INJ 1 MG/ML SYRINGE ONE (09:53)
[2020-10-15] MEDS: HYDROmorphone INJ 1 MG/ML SYRINGE IV PRN ×6 (09:54→10:19)
--- NOTE | 2020-10-15 10:39 | Anesthesiology Progress Note ---
Date of Service October 15, 2020 Anesthesia Post Procedure Vital Signs Vital Signs: Temp Pulse Pulse Resp BP Pulse Ox 10/15/20 10:30 36.5 C 71 18 132/56 L 98 10/15/20 10:20 36.5 C 71 18 136/55 L 98 10/15/20 10:10 73 18 128/52 L 98 10/15/20 10:00 71 16 135/61 98 10/15/20 09:50 62 16 126/56 L 98 10/15/20 09:40 65 16 133/62 100 10/15/20 09:30 36.8 C 68 16 125/53 L 96 10/15/20 06:30 36.8 C 67 20 127/54 L 97 Pain Intensity Left Foot: Pain Intensity: 6 Transfer of Care Handoff Completed per policy Notes Mental Status: alert / awake / arousable and participated in evaluation Patient Amnestic to Procedure: Yes Nausea / Vomiting: adequately controlled Pain: adequately controlled Airway Patency, RR, SpO2: stable & adequate BP & HR: stable & adequate Hydration State: stable & adequate Anesthetic Complications: no major complications apparent
[2020-10-15] MEDS ORDERED: LOPERAMIDE HCL 2 MG CAP PO PRN (10:46)
[2020-10-15] MEDS ORDERED: oxyCODONE/ACETAMINOPHEN 5mg/325mg TAB PO PRN (10:46)
[2020-10-15] MEDS ORDERED: PROMETHAZINE HCL 25 MG TAB PO PRN (10:46)
[2020-10-15 11:32] LABS: BUN Creatinine Ratio 6.5 (10-20); Calcium 8.5 mg/dl (8.5-10.1); Creatinine Clr Calc Pharmacy 13.8 ml/min; Est GFR (African American) 16.1; Est GFR (Non-African American) 13.9; Potassium 4.2 mmol/L (3.5-5.1)
[2020-10-15 11:41] LABS: Basophils # (auto) 0.01 K/uL (0-0.2); Basophils % (auto) 0.2 %; Eosinophils % (auto) 2.3 %; Hematocrit (blood only) 32.8 % (37-47); Hemoglobin 10.5 g/dL (12.0-16.0); Immature Granulocytes # (auto) 0.02 K/uL (0.00-0.02); Immature Granulocytes % (auto) 0.5 %; Lymphocytes # (auto) 0.84 K/uL (1.2-3.4); Lymphocytes % (auto) 19.1 %; Mean Corpuscular Hemoglobin 30.2 pg (25-34); Mean Corpuscular Volume 94.3 fL (80-100); Mean Platelet Volume 8.5 fL (7.4-10.4); Monocytes # (auto) 0.33 K/uL (0.11-0.59); Monocytes % (auto) 7.5 %; Neutrophils # (auto) 3.09 K/uL (1.4-6.5); Neutrophils % (auto) 70.4 %; Ovalocytes 1+; Platelet Count 96 K/uL (130-400); Platelet Estimate Decreased (Normal); RDW Coefficient of Variation 18.1 % (11.5-14.5); Red Blood Count 3.48 M/uL (4.2-5.4); White Blood Count 4.39 K/uL (4.8-10.8)
[2020-10-15] MEDS: HYDROCODONE/ACETAMOPHEN 5/325MG TAB PO PRN ×3 (12:02→22:11)
[2020-10-15] MEDS: OXcarbazepine 150 MG TABLET PO SCH ×2 (13:53→19:57)
[2020-10-15] MEDS ORDERED: HYDROCODONE/ACETAMOPHEN 5/325MG TAB PO PRN (14:00)
[2020-10-15] MEDS: BUMETANIDE 1 MG TAB PO SCH (16:09)
[2020-10-15] MEDS: NEPHROCAPS PO SCH (16:10)
[2020-10-15] MEDS: CIPROFLOXACIN 500 MG TAB PO SCH (16:10)
--- NOTE | 2020-10-15 17:07 | Nephrology Consultation ---
Date of Consultation October 15, 2020 Assessment & Plan (1) Osteomyelitis of ankle or foot, left, acute: s/p L transmetatarsal amputation. No complications. (2) ESRD (end stage renal disease) on dialysis: BP and volume status acceptable. Electrolytes have been controlled. No emergent indication for dialysis at this time. Plan to resume MWF HD schedule tomorrow. Treatment will be coordinated for her at [facility] if she remains inpatient. However, to avoid day of discharge dialysis, if she is to be discharged tomorrow, please coordinate with [facility]. Medications are appropriately dosed for kidney dysfunction. Phoslo QAC for hyperphos. Orders for HD reviewed as above. (3) Anemia: EBL minimal. Venofer to be provided with HD. Maintained on Micera as outpatient. History of Present Illness Reason for Consultation: ESRD on HD Requesting Physician: Juan Johnson MD Attending Physician: Juan Johnson MD History of Present Illness Mrs. Kalyani Diaz is a 75 year old female with ESRD attributed to a history of cardiorenal syndrome. She dialyzes MWF at [facility] (3.45 hrs 2K 2.5Ca F-180NR Qb400 EDW 75.5 kg). Medical history is notable for AODM, HTN, gout, hyperlipidemia, SERENITY and pulmonary HTN resulting in R heart failure. Kalyani developed a necrotic left second toe with associated peripheral arterial disease early this year. As the lesion progressed, she eventually required amputation of the 2nd and 3rd toes. Unfortunately, she has had non-healing and recent MRI demonstrated osteomyelitis. Kalyani was brought to the hospital today for transmetatarsal amputation. I saw her in her hospital room following the procedure this afternoon. There were no complications with surgery. Kalyani feels well. She hopes to return home as soon as possible. Kalyani completed her scheduled HD treatment on Wednesday without complications. She has been tolerating HD well. AVF functioning well with adequate Qb and good clearance. Allergies Allergy/AdvReac Type Severity Reaction Status Date / Time simvastatin Allergy Mild "did not Verified 10/15/20 06:11 feel well while taking" metformin Allergy Unknown does not Verified 10/15/20 06:11 remember pioglitazone Allergy Unknown ? NOT SURE Verified 10/15/20 06:11 rosiglitazone Allergy Unknown NOT SURE Verified 10/15/20 06:11 Gjzlryn-Ywu-Bid Reductase AdvReac Intermediate LEGS HURT Verified 10/15/20 06:11 Inhibitor ANGEL Inhibitors AdvReac Mild Cough Verified 10/15/20 06:11 homatropine AdvReac Unknown Unknown Verified 10/15/20 06:11 [From Hycodan (with homatropin)] oxycodone AdvReac Unknown Nausea Verified 10/15/20 06:11 escitalopram AdvReac Unknown Verified 10/15/20 06:11 CAT GUT SUTURES Allergy Intermediate SLOW Uncoded 10/15/20 06:11 HEALING,INFLAMED TISSUE Home Medications Medication Instructions Recorded Confirmed Type cetirizine [Zyrtec] 10 mg PO QPM 07/07/18 10/15/20 History ProRenal 2 tab PO QDD 12/19/18 10/15/20 History biotin 1 mg capsule 1 mg PO BID cap 02/01/19 10/15/20 History cranberry 400 mg capsule 800 mg PO BID 02/01/19 10/15/20 History lactobacillus combination no.4 3 3,000 mmu cells PO BIDM cap 02/01/19 10/15/20 History billion cell capsule calcium acetate(phosphat bind) 667 667 mg PO BID cap 03/12/20 10/15/20 History mg capsule labetalol 200 mg PO UD 05/21/20 10/10/20 History bumetanide 2 mg tablet 2 mg PO BID #180 tab 06/11/20 10/15/20 Rx loperamide 2 mg capsule 2 mg PO Q6H PRN #60 cap 06/27/20 10/15/20 Rx apixaban 5 mg tablet 2.5 mg PO BID #90 tab 07/17/20 10/15/20 Rx lamotrigine 25 mg tablet 25 mg PO BID #60 tab 09/03/20 10/15/20 Rx oxcarbazepine 300 mg tablet 300 mg PO .COMPLEX 30 Days #45 tab 09/03/20 10/15/20 Rx hydrocodone 5 mg-acetaminophen 325 1 tab PO TID #90 tab 09/23/20 10/15/20 Rx mg tablet ciprofloxacin HCl 500 mg PO BID 10/10/20 10/15/20 History miconazole nitrate 2 % topical 1 applic TOPICAL DAILY #1 tube 10/10/20 10/15/20 Rx ointment vitamins A,C,L-pfuk-nuveqr 1 cap PO BID 10/10/20 10/15/20 History [PreserVision AREDS] omeprazole 40 mg capsule,delayed 40 mg PO QAM #90 cap 10/11/20 10/15/20 Rx release promethazine 25 mg tablet 25 mg PO TID PRN #30 tab 10/11/20 10/15/20 Rx Patient History Medical History Anemia Chronic- Hgb 8.2-10.0 for past year Asymptomatic bilateral carotid artery stenosis Atherosclerosis without hemodynamically significant stenosis in the carotid arteries per 06/09/18 carotid doppler Atrial fibrillation On Eliquis- no cardioversion, follows with PCP. Broken arm [id number] SURGERY C. difficile colitis hx (2019) does have chronic diarrhea (r/t removal of gallbladder, per pt). Chronic pain Cirrhosis of liver Diabetes Hx of Type 2 IDDM -- no medications currently since placed on diaylsis. 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 Usually stable on Lamictal and oxcarbazepine. Surgical History AV fistula L upper extremity H/O tubal ligation History of carpal tunnel surgery History of Neuroplasty Decompression Median Nerve At Carpal Tunnel History of cataract surgery RT/LEFT History of cholecystectomy History of colonoscopy History of dilation and curettage History of ERCP MULTIPLE History of esophagogastroduodenoscopy (EGD) History of open reduction and internal fixation (ORIF) procedure Left Hip History of total knee replacement RT/LEFT Family History Daughter Breast cancer Unknown Emphysema, unspecified Family/Other Family history of diabetes mellitus NEPHEW Other Family history non-contributory No family history of adverse response to anesthesia Social History Smoking Status: Never smoker Second Hand Exposure: Yes (SPOUSE USED TO SMOKE); Do You Dip or Chew Tobacco: No; Hx Alcohol Use: No Hx Substance Use: No Preferred Language: Yoruba Communication Ability: Effective Visual Impairment: No 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 Beliefs That Will Affect Care: None marital status: Current Living Situation: Spouse current occupational status: retired Other Information That Helps Us Care for You: No Feels Safe at Home: Yes Safety Concerns: Feels Safe At This Time caffeine: Yes Seatbelt Use: always Assistive Devices: Denture - Upper and Wheelchair Assistive Devices Comment: BANDAGE LEFT FOOT-BOOT RIGHT FOOT Review of Systems Review of Systems: All systems reviewed & are unremarkable except as noted in HPI & below Physical Exam Constitutional: well developed and + frail appearing; no acute distress Eyes: no scleral abnormality and no corneal abnormality ENMT: Mouth: no oral mucosal abnormality and oral mucous membranes not dry Neck: normal visual inspection and trachea midline Respiratory: normal respiratory effort Auscultation: lungs clear to auscultation bilaterally Cardiovascular: Rate/Rhythm: regular rate Heart Sounds: normal S1, normal S2 and + murmur Extremities: + AV fistula; no edema Musculoskeletal: Extremities: no cyanosis and no clubbing Skin: normal turgor; no lesions Neurologic: Motor/Sensory: no tremor and no asterixis Psychiatric: Orientation: alert and oriented x 3 Results & Data ([facility]) Vital Signs (Past 12 Hours) Vital Signs Temp Pulse Pulse Resp BP Pulse Ox 10/15/20 15:55 36.7 C 63 16 107/58 L 96 10/15/20 13:43 65 16 112/50 L 98 10/15/20 12:48 65 16 132/74 98 10/15/20 11:43 65 16 130/76 98 10/15/20 11:12 66 16 124/56 L 99 10/15/20 10:45 36.7 C 70 16 131/80 100 10/15/20 10:30 36.5 C 71 18 132/56 L 98 10/15/20 10:20 36.5 C 71 18 136/55 L 98 10/15/20 10:10 73 18 128/52 L 98 10/15/20 10:00 71 16 135/61 98 10/15/20 09:50 62 16 126/56 L 98 10/15/20 09:40 65 16 133/62 100 10/15/20 09:30 36.8 C 68 16 125/53 L 96 10/15/20 06:30 36.8 C 67 20 127/54 L 97 Laboratory Results Laboratory Results - last 24 hr 10/15/20 10/15/20 10/15/20 06:00 06:02 06:02 WBC RBC Hgb Hct MCV MCH MCHC RDW Std Deviation RDW Coeff of Alejandra Plt Count MPV Immature Gran % (Auto) Neut % (Auto) Lymph % (Auto) [place] % (Auto) Eos % (Auto) Baso % (Auto) Neut # (Auto) Lymph # (Auto) [place] # (Auto) Eos # (Auto) Baso # (Auto) Immature Gran # (Auto) Platelet Estimate Ovalocytes Sodium 137 Potassium 4.2 Chloride 101 Carbon Dioxide 29 Anion Gap 7.0 BUN 18 Creatinine 2.90 H Est Cr Clr Drug Dosing 14.7 Est GFR ( Amer) 17.4 Est GFR (Non-Af Amer) 15.0 BUN/Creatinine Ratio 6.2 L Glucose 95 POC Glucose Calcium 8.6 Nasal Screen MRSA (PCR) COVID-19 Eval Order Covid19 IDNow [facility] SARS-CoV-2, RNA, NAAT NEGATIVE 10/15/20 10/15/20 10/15/20 06:07 09:34 10:59 WBC 4.39 L RBC 3.48 L Hgb 10.5 L Hct 32.8 L MCV 94.3 MCH 30.2 MCHC 32.0 RDW Std Deviation 62.0 H RDW Coeff of Alejandra 18.1 H Plt Count 96 L MPV 8.5 Immature Gran % (Auto) 0.5 Neut % (Auto) 70.4 Lymph % (Auto) 19.1 [place] % (Auto) 7.5 Eos % (Auto) 2.3 Baso % (Auto) 0.2 Neut # (Auto) 3.09 Lymph # (Auto) 0.84 L [place] # (Auto) 0.33 Eos # (Auto) 0.10 Baso # (Auto) 0.01 Immature Gran # (Auto) 0.02 Platelet Estimate Decreased L Ovalocytes 1+ Sodium Potassium Chloride Carbon Dioxide Anion Gap BUN Creatinine Est Cr Clr Drug Dosing Est GFR ( Amer) Est GFR (Non-Af Amer) BUN/Creatinine Ratio Glucose POC Glucose 99 89 Calcium Nasal Screen MRSA (PCR) COVID-19 Eval Order SARS-CoV-2, RNA, NAAT 10/15/20 10/15/20 10/15/20 10:59 11:45 11:48 WBC RBC Hgb Hct MCV MCH MCHC RDW Std Deviation RDW Coeff of Alejandra Plt Count MPV Immature Gran % (Auto) Neut % (Auto) Lymph % (Auto) [place] % (Auto) Eos % (Auto) Baso % (Auto) Neut # (Auto) Lymph # (Auto) [place] # (Auto) Eos # (Auto) Baso # (Auto) Immature Gran # (Auto) Platelet Estimate Ovalocytes Sodium 136 Potassium 4.2 Chloride 102 Carbon Dioxide 28 Anion Gap 6.0 BUN 20 H Creatinine 3.09 H Est Cr Clr Drug Dosing 13.8 Est GFR ( Amer) 16.1 Est GFR (Non-Af Amer) 13.9 BUN/Creatinine Ratio 6.5 L Glucose 90 POC Glucose 89 Calcium 8.5 Nasal Screen MRSA (PCR) Negative COVID-19 Eval Order SARS-CoV-2, RNA, NAAT PG Care Time/CCT Total # of Minutes Spent Total Time Spent with Patient: Total time spent is greater than 50% in coordination of care (as documented) at patient's floor/unit and/or counseling patient: Coding Level of Care Code 33010 Inpt Consult Level 4 Diagnoses Osteomyelitis of ankle or foot, left, acute M86.172 ESRD (end stage renal disease) on dialysis N18.6; Z99.2 Anemia D64.9
[2020-10-15] MEDS: CALCIUM ACETATE 667 MG CAP/TAB PO SCH (18:23)
[2020-10-15] MEDS: CETIRIZINE HCL 10 MG TABLET PO SCH (19:57)
[2020-10-15] MEDS: lamoTRIgine 25 MG TAB PO SCH (19:58)
[2020-10-15] MEDS: LABETALOL HCL 200 MG TAB PO SCH (19:59)
[2020-10-15] MEDS ORDERED: NON-FORMULARY MEDICATION (Biotin 1 mg capsule) PO SCH (21:00)
[2020-10-16] MEDS: HYDROCODONE/ACETAMOPHEN 5/325MG TAB PO PRN ×2 (05:45→10:03)
[2020-10-16 06:21] LABS: Basophils # (auto) 0.01 K/uL (0-0.2); Basophils % (auto) 0.2 %; Eosinophils # (auto) 0.08 K/uL (0-0.5); Eosinophils % (auto) 1.4 %; Hematocrit (blood only) 32.2 % (37-47); Hemoglobin 10.2 g/dL (12.0-16.0); Immature Granulocytes # (auto) 0.02 K/uL (0.00-0.02); Immature Granulocytes % (auto) 0.4 %; Lymphocytes # (auto) 1.02 K/uL (1.2-3.4); Lymphocytes % (auto) 18.1 %; Mean Corpuscular Hemoglobin 29.7 pg (25-34); Mean Corpuscular Hgb Conc 31.7 g/dL (32-36); Mean Corpuscular Volume 93.6 fL (80-100); Mean Platelet Volume 9.3 fL (7.4-10.4); Monocytes # (auto) 0.56 K/uL (0.11-0.59); Monocytes % (auto) 9.9 %; Neutrophils # (auto) 3.94 K/uL (1.4-6.5); Platelet Count 104 K/uL (130-400); RDW Standard Deviation 61.5 fL (36.4-46.3); Red Blood Count 3.44 M/uL (4.2-5.4); White Blood Count 5.63 K/uL (4.8-10.8)
[2020-10-16 07:02] LABS: BUN Creatinine Ratio 7.5 (10-20); Calcium 8.7 mg/dl (8.5-10.1); Creatinine Clr Calc Pharmacy 10.5 ml/min; Est GFR (African American) 11.6; Potassium 4.8 mmol/L (3.5-5.1)
[2020-10-16] MEDS: APIXABAN 2.5 MG TAB PO SCH ×2 (07:46→21:28)
[2020-10-16] MEDS: lamoTRIgine 25 MG TAB PO SCH ×2 (07:47→21:28)
[2020-10-16] MEDS: ADVANCED PROBIOTIC 1250 MG CAPSULE PO SCH (07:47)
[2020-10-16] MEDS: OXcarbazepine 150 MG TABLET PO SCH ×2 (07:48→21:29)
[2020-10-16] MEDS: BUMETANIDE 1 MG TAB PO SCH ×2 (07:48→16:55)
[2020-10-16] MEDS: PANTOprazole 40 MG TAB PO SCH (07:48)
[2020-10-16] MEDS: MICONAZOLE NITRATE 2% CR 30 GM TUBE EXT SCH (08:01)
[2020-10-16] MEDS: CALCIUM ACETATE 667 MG CAP/TAB PO SCH ×2 (08:51→16:55)
[2020-10-16] MEDS ORDERED: IRON SUCROSE 100 MG in SYRINGE 0 ML IV SCH (10:00)
[2020-10-16] MEDS ORDERED: HYDROmorphone INJ 0.5 MG/0.5 ML SYR IV STA (12:15)
[2020-10-16] MEDS ORDERED: HYDROmorphone INJ 0.5 MG/0.5 ML SYR ONE (12:20)
--- NOTE | 2020-10-16 12:55 | Nephrology Progress Note ---
Date of Service October 16, 2020 Assessment & Plan (1) Osteomyelitis of ankle or foot, left, acute: POD #1 s/p L transmetatarsal amputation. No complications. (2) ESRD (end stage renal disease) on dialysis: Orders for HD today per [facility] schedule entered into the EMR and reviewed with the dialysis nurse. 3.5 hrs on 180 optiflux. AVF funcitoning well. Qb at goal. UF goal 1-2 L as tolerated. Medications are appropriately dosed for kidney dysfunction. Phoslo QAC for hyperphos. (3) Anemia: EBL minimal. Venofer 100 mg with HD today. Maintained on Micera as outpatient. Admission and Anticipated Discharge Date Admission Date: October 15, 2020 Subjective No acute events overnight. Pain adequately controlled. Overall Kalyani feels well. Review of Systems Constitutional: no weight loss, no weight gain and no problem reported Eyes: no problem reported Ear, Nose, Mouth, Throat: no problem reported Respiratory: no problem reported Cardiovascular: no problem reported Gastrointestinal: no problem reported Musculoskeletal: no problem reported Integumentary: no problem reported Neurologic: no problem reported Psychiatric: no problem reported Endocrine: no problem reported Hematologic / Lymphatic: no problem reported Physical Exam Constitutional: well developed and + frail appearing; no acute distress Eyes: no scleral abnormality and no corneal abnormality ENMT: Mouth: no oral mucosal abnormality and oral mucous membranes not dry Neck: normal visual inspection and trachea midline Respiratory: normal respiratory effort Auscultation: lungs clear to auscultation bilaterally Cardiovascular: Rate/Rhythm: regular rate Heart Sounds: normal S1, normal S2 and + murmur Extremities: + AV fistula; no edema Musculoskeletal: Extremities: no cyanosis and no clubbing Skin: normal turgor; no lesions Neurologic: Motor/Sensory: no tremor and no asterixis Psychiatric: Orientation: alert and oriented x 3 Results & Data ([facility]) Vital Signs (Past 12 Hours) Vital Signs Temp Pulse Pulse Pulse Resp BP BP 10/16/20 12:40 89 116/58 L 10/16/20 12:20 86 126/72 10/16/20 12:00 80 120/54 L 10/16/20 11:40 79 117/51 L 10/16/20 11:20 81 111/53 L 10/16/20 11:00 75 114/59 L 10/16/20 10:40 75 122/53 L 10/16/20 10:22 79 123/63 10/16/20 10:20 36.8 C 61 10/16/20 07:09 36.8 C 83 16 138/67 Pulse Ox 10/16/20 12:40 10/16/20 12:20 10/16/20 12:00 10/16/20 11:40 10/16/20 11:20 10/16/20 11:00 10/16/20 10:40 10/16/20 10:22 10/16/20 10:20 10/16/20 07:09 96 PG Care Time/CCT Total # of Minutes Spent Total Time Spent with Patient: Total time spent is greater than 50% in coordination of care (as documented) at patient's floor/unit and/or counseling patient: Coding Level of Care Code 21280 Subseq Hosp Care Lvl 3 Diagnoses Osteomyelitis of ankle or foot, left, acute M86.172 ESRD (end stage renal disease) on dialysis N18.6; Z99.2 Anemia D64.9
--- NOTE | 2020-10-16 14:57 | Surgery Progress Note ---
Date of Service October 16, 2020 Assessment & Plan (1) Osteomyelitis of ankle or foot, left, acute: Pt is POD #1 after LLE TMA. Pt doing well. Will add dilaudid for better pain control, but advised pt she will need to be on oral pain meds only for discharge, possibly tomorrow. Admission and Anticipated Discharge Date Admission Date: October 15, 2020 Subjective 75 yo f POD #1 after LLE TMA, seen in f/u today. Pt states feeling generally ok, has been having significant pain in L foot TMA site, feels "tight." Denies any nausea or other complaints. Had HD today. Review of Systems Review of Systems: All systems reviewed & are unremarkable except as noted in HPI & below Physical Exam Physical Exam: Constitutional: well developed and well nourished Respiratory:normal respiratory effort; no respiratory distress Cardiovascular: Rate/Rhythm: regular rate and regular rhythm Vessels: femoral pulses present; + AV fistula, Her left foot demonstrates nonpalpable distal pulses. LLE TMA site C/D/I with noa. Drain with moderate bloody drainage noted. No significant edema or ecchymosis noted. Musculoskeletal: Extremities: extremities normal to inspection Psychiatric: Orientation: alert and oriented x 3 Results & Data ([facility]) Vital Signs (Past 12 Hours) Vital Signs Temp Pulse Pulse Pulse Resp BP BP 10/16/20 14:07 36.8 C 83 120/55 L 10/16/20 13:54 69 116/46 L 10/16/20 13:40 79 116/55 L 10/16/20 13:20 77 110/52 L 10/16/20 13:00 81 122/49 L 10/16/20 12:40 89 116/58 L 10/16/20 12:20 86 126/72 10/16/20 12:00 80 120/54 L 10/16/20 11:40 79 117/51 L 10/16/20 11:20 81 111/53 L 10/16/20 11:00 75 114/59 L 10/16/20 10:40 75 122/53 L 10/16/20 10:22 79 123/63 10/16/20 10:20 36.8 C 61 10/16/20 07:09 36.8 C 83 16 138/67 Pulse Ox 10/16/20 14:07 10/16/20 13:54 10/16/20 13:40 10/16/20 13:20 10/16/20 13:00 10/16/20 12:40 10/16/20 12:20 10/16/20 12:00 10/16/20 11:40 10/16/20 11:20 10/16/20 11:00 10/16/20 10:40 10/16/20 10:22 10/16/20 10:20 10/16/20 07:09 96
[2020-10-16] MEDS: HYDROmorphone INJ 0.5 MG/0.5 ML SYR IV PRN ×2 (16:08→20:00)
[2020-10-16] MEDS: CIPROFLOXACIN 500 MG TAB PO SCH (16:54)
[2020-10-16] MEDS: NEPHROCAPS PO SCH (16:54)
[2020-10-16] MEDS: LABETALOL HCL 200 MG TAB PO SCH (21:28)
[2020-10-16] MEDS: CETIRIZINE HCL 10 MG TABLET PO SCH (21:28)
[2020-10-17] MEDS: HYDROCODONE/ACETAMOPHEN 5/325MG TAB PO PRN (04:24)
--- NOTE | 2020-10-17 08:47 | Surgery Progress Note ---
Date of Service October 17, 2020 Assessment & Plan (1) Osteomyelitis of ankle or foot, left, acute: Pt is POD #2 after LLE TMA. Doing well. Will D/C home today. Admission and Anticipated Discharge Date Admission Date: October 15, 2020 Subjective 75 yo f POD #2 after LLE TMA, seenin f/u today. Pt states feeling improved, less pain. Denies any other new concerns. Review of Systems Review of Systems: All systems reviewed & are unremarkable except as noted in HPI & below Physical Exam Physical Exam: Constitutional: well developed and well nourished Respiratory:normal respiratory effort; no respiratory distress Cardiovascular: Rate/Rhythm: regular rate and regular rhythm Vessels: femoral pulses present; + AV fistula, Her left foot demonstrates nonpalpable distal pulses. LLE TMA site C/D/I with noa. Drain with minimal bloody drainage noted. No significant edema or ecchymosis noted. Musculoskeletal: Extremities: extremities normal to inspection Psychiatric: Orientation: alert and oriented x 3 Results & Data ([facility]) Vital Signs (Past 12 Hours) Vital Signs Temp Pulse Resp BP Pulse Ox 10/17/20 07:18 37 C 65 20 133/77 93 10/16/20 23:49 37.0 C 88 19 116/71 97 10/16/20 21:27 80 130/76
[2020-10-17] MEDS ORDERED: LABETALOL HCL 200 MG TAB PO SCH (09:00)
[2020-10-17] MEDS: OXcarbazepine 150 MG TABLET PO SCH (09:14)
[2020-10-17] MEDS: CALCIUM ACETATE 667 MG CAP/TAB PO SCH (09:14)
[2020-10-17] MEDS: PANTOprazole 40 MG TAB PO SCH (09:14)
[2020-10-17] MEDS: ADVANCED PROBIOTIC 1250 MG CAPSULE PO SCH (09:14)
[2020-10-17] MEDS: BUMETANIDE 1 MG TAB PO SCH (09:14)
[2020-10-17] MEDS: APIXABAN 2.5 MG TAB PO SCH (09:14)
[2020-10-17] MEDS: MICONAZOLE NITRATE 2% CR 30 GM TUBE EXT SCH (09:14)
[2020-10-17] MEDS: lamoTRIgine 25 MG TAB PO SCH (09:14)
--- NOTE | 2020-10-17 11:26 | Nephrology Progress Note ---
Date of Service October 17, 2020 Assessment & Plan (1) Osteomyelitis of ankle or foot, left, acute: POD #2 s/p L transmetatarsal amputation. No complications. (2) ESRD (end stage renal disease) on dialysis: BP and volume status acceptable. Adequate clearance with HD yesterday. AVF functioning well. Resume outpatient Rx at [facility] tomorrow. I contacted the unit and informed them that Kalyani will be at treatment. Outpatient Rx updated. Medications are appropriately dosed for kidney dysfunction. (3) Anemia: EBL minimal. Venofer 100 mg with HD provided yesterday. Maintained on Micera as outpatient. Admission and Anticipated Discharge Date Admission Date: October 15, 2020 Subjective No acute events overnight. Tolerated HD yesterday without complications. Kalyani feels well today. Discharge home scheduled. Will resume HD per MWF schedule at [facility] tomorrow. Pain is controlled. Review of Systems Review of Systems: All systems reviewed & are unremarkable except as noted in HPI & below Physical Exam Constitutional: well developed and + frail appearing; no acute distress Eyes: no scleral abnormality and no corneal abnormality ENMT: Mouth: no oral mucosal abnormality and oral mucous membranes not dry Neck: normal visual inspection and trachea midline Respiratory: normal respiratory effort Auscultation: lungs clear to auscultation bilaterally Cardiovascular: Rate/Rhythm: regular rate Heart Sounds: normal S1, normal S2 and + murmur Extremities: + AV fistula; no edema Musculoskeletal: Extremities: no cyanosis and no clubbing Skin: normal turgor; no lesions Neurologic: Motor/Sensory: no tremor and no asterixis Psychiatric: Orientation: alert and oriented x 3 Results & Data ([facility]) Vital Signs (Past 12 Hours) Vital Signs Temp Pulse Pulse Pulse Resp BP Pulse Ox 10/17/20 10:44 37 C 71 65 77 20 116/65 93 10/17/20 09:11 77 116/65 10/17/20 07:18 37 C 65 20 133/77 93 10/16/20 23:49 37.0 C 88 19 116/71 97 Laboratory Results Laboratory Results - last 24 hr 10/16/20 10/16/20 14:47 20:13 POC Glucose 109 H Hepatitis Be Antibody Pending Hepatitis Be Antigen Pending PG Care Time/CCT Total # of Minutes Spent Total Time Spent with Patient: Total time spent is greater than 50% in coordination of care (as documented) at patient's floor/unit and/or counseling patient: Coding Level of Care Code 50268 Subseq Hosp Care Lvl 3 Diagnoses Osteomyelitis of ankle or foot, left, acute M86.172 ESRD (end stage renal disease) on dialysis N18.6; Z99.2 Anemia D64.9
--- NOTE | 2020-10-18 08:27 | Discharge Summary ---
Date of Service October 18, 2020 Admission HPI Per Admitting Provider Mrs. Marte is an elderly female who presents for a follow-up visit regarding her left foot second and third toe amputations. This was performed originally back in June 2020, and has been chronically nonhealing since that time. She has been on antibiotics intermittently, and at her last visit here it was felt prudent to perform an MRI to evaluate for osteomyelitis. Patient denies any fevers chills nausea vomiting or other new concerns. She continues to dialyze Wednesday and Wednesday. Review of the patient's left foot MRI indicates osteomyelitis of the second and third metatarsal heads as well as marrow edema and a nondisplaced fracture of the fourth metatarsal head. Admission Exam Per Admitting Provider Constitutional: well developed and well nourished Respiratory:normal respiratory effort; no respiratory distress Cardiovascular: Rate/Rhythm: regular rate and regular rhythm Vessels: femoral pulses present; + AV fistula, Her left foot demonstrates nonpalpable distal pulses. Her second and third toe amputation site has copious serous drainage. She also appears to have erythema, edema and warmth of the distal portion of her foot including all of her toes. I do not appreciate any fluctuance. Musculoskeletal: Extremities: extremities normal to inspection Psychiatric: Orientation: alert and oriented x 3 Principal Diagnosis 1. s/p LLE TMA 2. LLE foot osteomyelitis Discharge Exam Constitutional WD/WN, vitals as above Respiratory normal respiratory effort, lungs clear to auscultation Cardiovascular Rate/Rhythm: regular rate and regular rhythm Vessels: posterior tibial pulses present (doppler), dorsalis pedis pulses present (doppler) and radial pulses present; + abnormal peripheral pulses Extremities: normal capillary refill and + AV fistula Gastrointestinal (Abdomen) normal bowel sounds, soft, nontender, no hepatosplenomegaly Skin no rashes, warm and dry + incision (L foot TMA C/I noa minimal bloody drainage) Psychiatric A+Ox3, euthymic affect Discharge Data Allergies Allergy/AdvReac Type Severity Reaction Status Date / Time simvastatin Allergy Mild "did not Verified 10/15/20 06:11 feel well while taking" metformin Allergy Unknown does not Verified 10/15/20 06:11 remember pioglitazone Allergy Unknown ? NOT SURE Verified 10/15/20 06:11 rosiglitazone Allergy Unknown NOT SURE Verified 10/15/20 06:11 Lfduywb-Mrh-Xhs Reductase AdvReac Intermediate LEGS HURT Verified 10/15/20 06:11 Inhibitor ANGEL Inhibitors AdvReac Mild Cough Verified 10/15/20 06:11 homatropine AdvReac Unknown Unknown Verified 10/15/20 06:11 [From Hycodan (with homatropin)] oxycodone AdvReac Unknown Nausea Verified 10/15/20 06:11 escitalopram AdvReac Unknown Verified 10/15/20 06:11 CAT GUT SUTURES Allergy Intermediate SLOW Uncoded 10/15/20 06:11 HEALING,INFLAMED TISSUE Consultations 10/15/20 10:46 Consult Nephrology Routine Procedures Performed Operation Date: 10/15/20 08:00 Actual Procedures p Left Foot Transmetatarsal Amputation(Left) - Juan Johnson MD Ordered Studies 10/15/20 05:00 US - OR guided needle placemen Routine Hospital Course (1) Osteomyelitis of ankle or foot, left, acute: Pt is POD #2 after LLE TMA. Doing well. Will D/C home today. Total Time Total Time Spent Total Time Spent (In Minutes): 0 Discharge Plan Discharge Items Patient Disposition: Home - Home Health Services Reason For Visit: Osteomyelitis Discharge Diagnosis: 1. s/p Left foot transmetatarsal amputation 2. osteomyelitis L foot Activity: Per Instructions section Non-emergency contact: Primary Care Provider Call non-emergency contact if: you have any medication questions, your pain is worsening, your pain is concerning for you, you have a fever, your wound has increased redness and your wound has increased drainage Follow-up/Referrals: Jc Espino MD [Primary Care Provider] - 10/22/20 10:30 am (Follow up with PCP within 1-2 weeks. ) Juan Johnson MD [Physician] - 10/29/20 1:45 pm (Follow up with Dr Johnson or Marina Gardiner PA-C in 2 weeks for staple removal) Diet: Dialysis Renal Addtl Attending Provider Instructions: 1. KEEP LEFT FOOT ELEVATED MUCH POSSIBLE 2. Cleanse and place dry dressing to foot wound for protection 3. MUST wear post op shoe/boot for transfers and ambulation 4. Call [phone] with any questions. ACTIVITY RECOMMENDATIONS: See Above SPECIAL CARE INSTRUCTIONS: Call your doctor if: * Temperature above 101 degrees * Pain not relieved by pain medicine ordered * There is increased drainage or redness from any incision * You have any unanswered questions or concerns. Pending Studies at Discharge: No Stand-Alone Forms: My [facility], Smoking Cessation Medications and DC Order Prescriptions: New hydrocodone-acetaminophen 5-325 mg Tablet 1 - 2 tab PO Q4H PRN (Reason: pain) Qty: 30 RF: 0 levofloxacin 500 mg tablet 500 mg PO .QOD 14 Days Qty: 7 RF: 0 Continued bumetanide 2 mg tablet 2 mg PO BID Qty: 180 RF: 1 loperamide [Imodium A-D] 2 mg capsule 2 mg PO Q6H PRN (Reason: Diarrhea) Qty: 60 RF: 2 Eliquis 5 mg tablet 2.5 mg PO BID Qty: 90 RF: 3 hydrocodone-acetaminophen 5-325 mg tablet 1 tab PO TID Qty: 90 RF: 0 Aloe [place] Antifungal (micon) 2 % ointment 1 applic topical DAILY Qty: 1 RF: 3 omeprazole 40 mg capsule,delayed release(DR/EC) 40 mg PO QAM Qty: 90 RF: 3 promethazine 25 mg tablet 25 mg PO TID PRN (Reason: nausea and vomiting on dialysis days) Qty: 30 RF: 3 lamotrigine [Lamictal] 25 mg tablet 25 mg PO BID Qty: 60 RF: 5 oxcarbazepine [Trileptal] 300 mg tablet 300 mg PO .COMPLEX 30 Days Qty: 45 RF: 5 biotin 1 mg capsule 1 mg PO BID RF: 0 ProRenal 8 mg iron-800 mcg-1,000 unit tablet 2 tab PO QDD RF: 0 labetalol 200 mg tablet 200 mg PO UD RF: 0 cetirizine [Zyrtec] 10 mg Tablet 10 mg PO QPM RF: 0 Probiotic 3 billion cell capsule 3,000 mmu cells PO BIDM RF: 0 cranberry 400 mg capsule 800 mg PO BID RF: 0 calcium acetate(phosphat bind) 667 mg capsule 667 mg PO BID RF: 0 PreserVision AREDS [id number] Capsule 1 cap PO BID RF: 0 Discontinued ciprofloxacin HCl 500 mg Tablet 500 mg PO BID RF: 0 Discharge Orders: Discharge Order (Routine); Ordered 10/17/20 Ordered By: Marina Gardiner Admission Data Admit Date/Time: 10/15/20 07:42 Attending Provider: Juan Johnson Admit Provider: Juan Johnson Primary Care Provider: Jc Espino Other Providers: Mar Seymour ; Helder Sierra ; Tin Marrero ; Debbie Hopkins ; José Whitley ; [facility] Other Interventions: Discharge Summary Assessment (RN) Last Done: 10/17/20 10:44
[2020-10-21 13:56] LABS: Hepatitis BE Antibody Reactive; Hepatitis BE Antigen Nonreactive
== END 2020-10-17 11:22 | disposition home health service (06) | DRG 617 ==
LOC: ASU 05:33 → 3N 07:42

== ENCOUNTER 2021-02-26 07:14 | Inpatient (IN) ==
--- NOTE | 2021-02-24 14:21 | Anesthesiology Consultation ---
Date of Service February 24, 2021 Assessment & Plan (1) Encounter for pre-operative examination: ESRD on M/W/F hemodialysis. Notation on sheet that dialysis is planning to adjust treatment days this week. CMP added to order sheet for DOS. Marked on OR sheet including notation that dialysis unit is planning to adjust her treatment days week of surgery. BSG added for am DOS. Anesthesia record: Toe amputations 06/2020 and 10/2020, no issues noted. Left IM nail 09/18/18= Done under GA with Grade 1 view with MAC #3. ETT #7.5. No anesthesia issues noted per anesthesia record. COVID 02/24/2021: pending. Case discussed in detail with Dr. Vale who also reviewed chart including EKG and echocardiogram and advised patient deemed acceptable to proceed with surgery on 02/26/2021 for distal revascularization and interval ligation of fistula, left upper extremity. Chart Review Chart Review: Acceptable Risk for Surgery and Patient NOT seen in Pre Admission Testing History Surgery Operation Date: 02/26/21 12:00 Proposed Procedures p Left Distal Revascularization and Internal Ligation of Fistula Left Upper Extremity - Juan Johnson MD Height/Weight Height: 4 ft 11 in Weight: 67 kg Allergies Allergy/AdvReac Type Severity Reaction Status Date / Time metformin Allergy Unknown does not Verified 02/21/21 14:47 remember pioglitazone Allergy Unknown ? NOT SURE Verified 02/21/21 14:47 rosiglitazone Allergy Unknown NOT SURE Verified 02/21/21 14:47 simvastatin Allergy Unknown "did not Verified 02/21/21 14:47 feel well while taking" ANGEL Inhibitors AdvReac Unknown Cough Verified 02/21/21 14:47 escitalopram AdvReac Unknown Unknown Verified 02/21/21 14:47 homatropine AdvReac Unknown Unknown Verified 02/21/21 14:47 [From Hycodan (with homatropin)] oxycodone AdvReac Unknown Nausea Verified 02/21/21 14:47 Mnjocem-Aeb-Mbs Reductase AdvReac Unknown LEGS HURT Verified 02/21/21 14:47 Inhibitor CAT GUT SUTURES Allergy Unknown SLOW Uncoded 02/21/21 14:47 HEALING,INFLAMED TISSUE Medications Home Medications Medication Instructions Recorded Confirmed Last Taken cetirizine 10 mg tablet (Zyrtec) 10 mg PO QPM 07/07/18 02/21/21 02/03/21 16:00 vit B complx, C-iron 8 mg-folic 2 tab PO QDD 12/19/18 02/21/21 02/03/21 acid 800 mcg-D3 1,000 unit-zinc tablet (ProRenal) biotin 1 mg capsule 1 mg PO BID cap 02/01/19 02/21/21 02/03/21 16:00 cranberry 400 mg capsule 800 mg PO BID 02/01/19 02/21/21 02/03/21 16:00 lactobacillus combination no.4 3 3,000 mmu cells PO BIDM cap 02/01/19 02/21/21 02/03/21 16:00 billion cell capsule (Probiotic) calcium acetate(phosphat bind) 667 667 mg PO BID cap 03/12/20 02/21/21 02/03/21 16:00 mg capsule labetalol 200 mg tablet 200 mg PO UD 05/21/20 02/21/21 02/04/21 06:00 bumetanide 2 mg tablet 2 mg PO BID #180 tab 06/11/20 02/21/21 02/03/21 16:00 apixaban 5 mg tablet (Eliquis) 2.5 mg PO BID #90 tab 07/17/20 02/21/21 01/31/21 lamotrigine 25 mg tablet (Lamictal) 25 mg PO BID #60 tab 09/03/20 02/21/21 02/03/21 16:00 vitamins A,C,P-xjls-cggtzx 14,320 1 cap PO BID 10/10/20 02/21/21 02/03/21 16:00 unit-226 mg-200 unit capsule (PreserVision AREDS) omeprazole 40 mg capsule,delayed 40 mg PO QAM #90 cap 10/11/20 02/21/21 02/04/21 06:00 release diphenhydramine 25 1 tab PO Q4H PRN 02/04/21 02/21/21 02/03/21 16:00 mg-acetaminophen 500 mg tablet (Tylenol PM Extra Strength) amoxicillin 500 mg capsule 500 mg PO DAILY 14 Days #14 cap 02/17/21 02/21/21 Unknown doxycycline hyclate 100 mg tablet 100 mg PO bid 14 Days #28 tab 02/17/21 02/21/21 Unknown collagenase clostridium histo. 250 1 applic TOPICAL UD PRN 02/21/21 02/21/21 Unknown unit/gram topical ointment (Santyl) hydrocodone 5 mg-acetaminophen 325 1 tab PO UD PRN 02/21/21 02/21/21 Unknown mg tablet loperamide 2 mg capsule (Imodium 2 mg PO UD PRN 02/21/21 02/21/21 Unknown A-D) miconazole nitrate 2 % topical 1 applic TOPICAL WK 02/21/21 02/21/21 Unknown ointment (Aloe [place] Antifungal (miconazole)) oxcarbazepine 300 mg tablet 150 - 300 mg PO BID 02/21/21 02/21/21 Unknown (Trileptal) promethazine 25 mg tablet 25 mg PO UD PRN 02/21/21 02/21/21 Unknown Past Medical History Medical History Anemia Chronic- Hgb 8.2-10.0 for past year Asymptomatic bilateral carotid artery stenosis Atherosclerosis without hemodynamically significant stenosis in the carotid arteries per 06/09/18 carotid doppler Atrial fibrillation On Eliquis- no cardioversion, follows with PCP. PT REPORTS HX AFIB ONE TIME WHILE IN HOSPITAL FOLLOWS DR HARPER Broken arm [id number] SURGERY, states she can not have it fixed due to fistula C. difficile colitis hx (2019) does have chronic diarrhea (r/t removal of gallbladder, per pt). Chronic pain Cirrhosis of liver Diabetes Hx of Type 2 IDDM -- no medications currently since placed on diaylsis. Diabetic nephropathy Disc degeneration, lumbar Encounter for management of wound VAC WOUND VAC LEFT FOOT , REASON FOR CURRENT ANTIBIOTICS PER PT End stage renal disease DIALYSIS M/W/F [place] LEFT ARM FISTULA Erosive (osteo)arthritis Gangrene LEFT MIDDLE FINGER, HAS HAD FOR 9 MONTHS GERD (gastroesophageal reflux disease) Gout hx Hiatal hernia HTN (hypertension) PT REPORTS BP HAS BEEN LOW LATELY Hyperlipidemia Left ventricular hypertrophy Moderate/concentric per 05/2020 ECHO- no stoner out at this time - follows with PCP Lymphedema r/t left arm fracture (unable to be repaired in the past) On anticoagulant therapy Osteoporosis no medications Peripheral arterial disease Pulmonary hypertension Per 05/23/20 ECHO= RV systolic pressure elevated > 60 mmHg (severe pulmonary hypertension RVSP 64 mmHg) Scoliosis Shoulder problem RIGHT ROTATOR CUFF PER PT Sleep apnea NO DEVICE Spinal stenosis Trigeminal neuralgia Follows with neuro- last seen 09/03/20- no acute issues. Usually stable on Lamictal and oxcarbazepine. Past Family History Family History Daughter Breast cancer Unknown Emphysema, unspecified Family/Other Family history of diabetes mellitus NEPHEW Other Family history non-contributory No family history of adverse response to anesthesia Past Surgical History 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 Social History Smoking Status: Never smoker Do You Dip or Chew Tobacco: No Hx Alcohol Use: No Hx Substance Use: No substance use type: does not use Lab Results Anesthesia Preop Results Results Anesthesia Widget: WBC 7.09 K/uL (4.8-10.8) 02/24/21 Hgb 10.9 g/dL (12.0-16.0) L 02/24/21 Hct 34.2 % (37-47) L 02/24/21 Plt 194 K/uL (130-400) 02/24/21 Na 131 mmol/L (136-145) L 02/24/21 K 3.8 mmol/L (3.5-5.1) 02/24/21 Cl 97 mmol/L (98-107) L 02/24/21 CO2 25 mmol/L (21-32) 02/24/21 BUN 38 mg/dl (7-18) H 02/24/21 Creat 5.35 mg/dl (0.6-1.2) H* 02/24/21 Glucose Level 151 mg/dl (70-99) H 02/24/21 POC Glucose 118 mg/dl (70-99) H 02/04/21 PT 10.1 Seconds (9.0-12.0) 02/24/21 PTT 31.0 Seconds (21.0-31.0) 02/24/21 INR 1.0 (0.9-1.1) 02/24/21 Blood Type O Positive 02/24/21 Antibody Screen NEGATIVE 02/24/21 Testing Electrocardiogram Date: 05/21/20 Findings: + AFIB @ (79 bpm) Poor data quality, interpretation may be adversely affected Atrial fibrillation Low voltage QRS Septal infarct (cited on or before 21-MAY-2020) Abnormal ECG When compared with ECG of 14-MAY-2019 14:47, QRS axis Shifted left Confirmed by Cas Cobos ([id number]) on 05/22/2020 10:13:29 PM. Chest X-Ray Date: 05/22/20 IMPRESSION: 1. Old displaced ununited left humeral neck fracture 2. Cardiomegaly and mild pulmonary vascular congestion. 3. No evidence of focal pulmonary consolidation. Echocardiogram Date: 05/23/20 EF 60-65%. Severe pulmonary hypertension, RVSP 64 mmHg. Severe left atrial dilation. Moderate right atrial dilation. Mild to moderate mitral regurgitation. No regional wall motion abnormalities. Moderate concentric left ventricular hypertrophy. No hemodynamically significant valvular aortic stenosis. Other Testing Carotid doppler 06/09/18: Atherosclerosis without hemodynamically significant stenosis in the carotid arteries.
--- NOTE | 2021-02-26 07:12 | History & Physical Report ---
Date of Service February 26, 2021 History of Present Illness Primary Care Provider: Roderick Espino MD [place] [address] History & Physical ReportSigned with Mirna Patient: KEVIN JEWELL Date: 02/04/21MR#: [id number] Phy: Juan Johnson M.D.Acct ID: [id number] Phy: Roderick Espino MDBirth Date: 1945Fa Phy: Age: 75Location: ASUSex: FRoom/Bed: cc: ~ *NOTICE TO RECEIVING LIBERTARIAN/AGENCY This information is strictly Confidential and protected under [place] law. [place] law prohibits you from making any further disclosure of this information unless further disclosure is expressly permitted by the written consent of the person to whom it pertains or is authorized by law. A general authorization for the release of medical or other information is not sufficient for this purpose. Hospital accepts no responsibility if the information is made available to any other person, INCLUDING THE PATIENT. [id number] February 04, 2021 07:52 Lungs were clear Cor had a RRR Abd was benign Addendum Signed By:<Electronically signed by Juan Johnson MD>02/04/21ddendum Cosigned By:Created: 02/04/21 Date of Service February 03, 2021 History of Present Illness Primary Care Provider: Roderick Espino MD Name: KEVIN JEWELL Patient Number: [id number] : 1945 Date of Service: 01/23/2021 Chief Complaint: _Follow-up for left foot transmetatarsal amputation HPI: _Mrs. Marte is an elderly female who presents to Dr. Johnson's vascular surgery clinic today for a 6-week follow-up regarding her left foot transmetat arsal amputation, as well as her left third finger wound. Patient states that she is now in a wound VAC on her left foot, and has been told that it is healing well, however, she is on an oral antibiotic for a possible infection in a portion of her foot wound. She also states that the wound clinic has set her up to see Dr. Дмитрий Jones to evaluate her left third finger wound next week. She has been continuing to paint this with Betadine. She has not noticed considerable improvement. She denies any other new complaints at this time aside from pain in her left third finger which has been chronic. She denies fevers chills nausea vomiting or other concerns. She continues to undergo dialysis through her left upper arm AV fistula. 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 Current Home Meds: (Last Updated 01/23 10:18) OXcarbazepine (Trileptal 300 mg oral tablet) 150mg po in am and 300mg in pm acetaminophen-HYDROcodone (acetaminophen-HYDROcodone 325 mg-5 mg oral tablet) 1 tab PO q6h PRN: as needed for pain apixaban (apixaban 5 mg oral tablet) 5 mg PO bid bumetanide (Bumex 1 mg oral tablet) 1 mg PO Daily calcium acetate (calcium acetate 667 mg oral capsule) 1 caps with breakfast and supper labetalol (labetalol 200 mg oral tablet) 2 tab po daily on non dialysis days and 1 tab po daily on dialysis day after dialysis multivitamin with minerals (ProRenal Vital oral tablet) TAKE 1 TABLET BY MOUTH EVERY DAY mupirocin topical (mupirocin topical 2% cream) 1 appl topical tid omeprazole (omeprazole 20 mg oral delayed release tablet) 20 mg PO qAM promethazine (promethazine 25 mg oral tablet) 25 mg PO q6h PRN: as needed for nausea/vomiting sulfamethoxazole-trimethoprim (sulfamethoxazole-trimethoprim 400 mg-80 mg oral tablet) 1 tab PO Daily Allergies and Sensitivities: Actos Avandia Past Medical History: Problems: Gangrene of finger of left hand S/P transmetatarsal amputation of foot Osteomyelitis of foot Gangrene of toe of left foot Status post amputation of lesser toe of left foot Toe ulcer Toe infection Right second toe ulcer Intertrochanteric fracture of left hip Hip fracture Dependent on hemodialysis End stage renal disease on dialysis Spondylolisthesis of lumbar region Lumbar spinal stenosis Depression Acid reflux Asthma Knee pain, bilateral LBP (low back pain) HTN (hypertension) Osteoarthritis of knee CTS (carpal tunnel syndrome) Finger Knee DDD Trigeminal neuralgia BM (bacterial meningitis) OBJECTIVE Vitals: Last Updated 01/23/21 10:18 Date Temp BP Location Pulse RR SpO2 Pain 01/23/21 90/44 Right Arm 62 93 0 12/03/20 112/56 Right Arm 67 97 12/03/20 0 Vital Signs are the last 3 documented. No Orthostatic Data Available Height and Weight: Last Updated 07/14/16 14:44 Date BMI Wt(kg) Wt(lb) Method Ht(cm) (ft-in) Method 07/14/16 45.51 105.69 233 Patient stated 152.4 5-0 Patient stated 06/09/16 44.92 104.33 230 Patient stated 152.4 5-0 Patient stated 08/14/14 121.7 268 Heights and Weights are the last 3 documented. Physical Exam Constitutional: In general patient is a mildly chronically ill-appearing elderly female no distress. She is in a wheelchair. 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 Her radial pulse is nonpalpable, and her left third finger continues to have black eschar at the tip with pale tissue in the periwound area. This is tender to touch, but is dry and there is no odor. Her left foot transmetatarsal amputation site continues to have a wound VAC in place, I do not see any necrosis in the periwound area, but her wound VAC was not removed in the office today. ASSESSMENT: _ PLAN: _ 1 ) _left third finger gangrene due to upper extremity arterial disease and vascular access steal syndrome Patient continues to have a nonhealing wound to the left third finger, this is not improving despite local wound care and regular care at the wound clinic. Due to her significant arterial disease and steal syndrome, we recommend that she undergo a left arm arteriogram with possible intervention on the occluded radial artery if possible. We would like to have this done prior to any orthopedic surgical intervention if possible, in order to facilitate healing. Patient is agreeable to this plan. The procedure was discussed at length with the patient by Dr. Johnson, she expressed understanding and agreement to proceed. 2 ) _status post left transmetatarsal amputation Patient is now over 3 months status post left transmetatarsal amputation due to nonhealing wounds and gangrene. Pictures reviewed in the [facility] website from the wound clinic indicate good granulation of this wound with her wound VAC. We recommend that she continue with that per the wound clinic and we will reevaluate her for this at a later time. She is advised to call with any other questions. Thank you for letting us participate in the care of this patient. Signature Line Electronic Signature on File Electronically Reviewed/Signed by: Marina Gardiner PA-C Author Signature Dt/Tm:01/23/2021 11:55 AM [facility] [address] [facility] [address] [place] [address] Electronically Reviewed/Signed by: Juan Johnson MD Cosigner Signature Dt/Tm: 01/27/2021 08:56 AM Sr. [employer] [facility] [address] [facility] [address] [place] [address] LM Result Type: HVI Outpt Note Date of Service: January 23, 2021 11:45 EDT Authorization Status: Final Author or Import Date: HETAL Gardiner, Marina on January 23, 2021 11:55 EDT Verified By: MD Alex, Juan Burnett on January 27, 2021 08:56 EDT Encounter info: [id number], [facility] Clinic, 01/23/2021 - 01/23/2021 Allergies Allergy/AdvReac Type Severity Reaction Status Date / Time simvastatin Allergy Mild "did not Verified 02/04/21 07:06 feel well while taking" metformin Allergy Unknown does not Verified 02/04/21 07:06 remember pioglitazone Allergy Unknown ? NOT SURE Verified 02/04/21 07:06 rosiglitazone Allergy Unknown NOT SURE Verified 02/04/21 07:06 [id number]-[id number] Reductase AdvReac Intermediate LEGS HURT Verified 02/04/21 07:06 Inhibitor ANGEL Inhibitors AdvReac Mild Cough Verified 02/04/21 07:06 homatropine AdvReac Unknown Unknown Verified 02/04/21 07:06 [From Hycodan (with homatropin)] oxycodone AdvReac Unknown Nausea Verified 02/04/21 07:06 escitalopram AdvReac Unknown Verified 02/04/21 07:06 CAT GUT SUTURES Allergy Intermediate SLOW Uncoded 01/30/21 14:22 HEALING,INFLAMED TISSUE Home Medications Medication Instructions Recorded Confirmed Type cetirizine 10 mg tablet (Zyrtec) 10 mg PO QPM 07/07/18 02/04/21 History vit B complx, C-iron 8 mg-folic 2 tab PO QDD 12/19/18 02/04/21 History acid 800 mcg-D3 1,000 unit-zinc tablet (ProRenal) biotin 1 mg capsule 1 mg PO BID cap 02/01/19 02/04/21 History cranberry 400 mg capsule 800 mg PO BID 02/01/19 02/04/21 History lactobacillus combination no.4 3 3,000 mmu cells PO BIDM cap 02/01/19 02/04/21 History billion cell capsule (Probiotic) calcium acetate(phosphat bind) 667 667 mg PO BID cap 03/12/20 02/04/21 History mg capsule labetalol 200 mg tablet 200 mg PO UD 05/21/20 02/04/21 History bumetanide 2 mg tablet 2 mg PO BID #180 tab 06/11/20 02/04/21 Rx loperamide 2 mg capsule (Imodium 2 mg PO Q6H PRN #60 cap 06/27/20 02/04/21 Rx A-D) apixaban 5 mg tablet (Eliquis) 2.5 mg PO BID #90 tab 07/17/20 02/04/21 Rx lamotrigine 25 mg tablet (Lamictal) 25 mg PO BID #60 tab 09/03/20 02/04/21 Rx oxcarbazepine 300 mg tablet 300 mg PO .COMPLEX 30 Days #45 tab 09/03/20 02/04/21 Rx (Trileptal) miconazole nitrate 2 % topical 1 applic TOPICAL DAILY #1 tube 10/10/20 02/04/21 Rx ointment (Aloe [place] Antifungal (miconazole)) vitamins A,C,D-gvmg-kcqkvj 14,320 1 cap PO BID 10/10/20 02/04/21 History unit-226 mg-200 unit capsule (PreserVision AREDS) omeprazole 40 mg capsule,delayed 40 mg PO QAM #90 cap 10/11/20 02/04/21 Rx release promethazine 25 mg tablet 25 mg PO TID PRN #30 tab 10/11/20 02/04/21 Rx collagenase clostridium histo. 250 1 applic TOPICAL DAILY 14 Days #90 01/02/21 02/04/21 Rx unit/gram topical ointment (Santyl) g hydrocodone 5 mg-acetaminophen 325 1 tab PO TID #90 tab 02/03/21 02/04/21 Rx mg tablet diphenhydramine 25 1 tab PO Q4H PRN 02/04/21 02/04/21 History mg-acetaminophen 500 mg tablet (Tylenol PM Extra Strength) Past Med/Surg History Medical History Anemia Chronic- Hgb 8.2-10.0 for past year Asymptomatic bilateral carotid artery stenosis Atherosclerosis without hemodynamically significant stenosis in the carotid arteries per 06/09/18 carotid doppler Atrial fibrillation On Eliquis- no cardioversion, follows with PCP. Broken arm [id number] SURGERY, states she can not have it fixed due to fistula C. difficile colitis hx (2019) does have chronic diarrhea (r/t removal of gallbladder, per pt). Chronic pain Cirrhosis of liver Diabetes Hx of Type 2 IDDM -- no medications currently since placed on diaylsis. Diabetic nephropathy Disc degeneration, lumbar End stage renal disease DIALYSIS M/W/F [place] Erosive (osteo)arthritis GERD (gastroesophageal reflux disease) Gout hx Hiatal hernia HTN (hypertension) Hyperlipidemia Left ventricular hypertrophy Moderate/concentric per 05/2020 ECHO- no bow string maker at this time - follows with PCP Lymphedema r/t left arm fracture (unable to be repaired in the past) On anticoagulant therapy Osteoporosis no medications Peripheral arterial disease Pulmonary hypertension Per 05/23/20 ECHO= RV systolic pressure elevated > 60 mmHg (severe pulmonary hypertension RVSP 64 mmHg) Scoliosis Sleep apnea NO DEVICE Spinal stenosis Trigeminal neuralgia Follows with neuro- last seen 09/03/20- no acute issues. Usually stable on Lamictal and oxcarbazepine. Surgical History AV fistula L upper extremity H/O tubal ligation History of carpal tunnel surgery History of Neuroplasty Decompression Median Nerve At Carpal Tunnel History of cataract surgery RT/LEFT History of cholecystectomy History of colonoscopy History of dilation and curettage History of ERCP MULTIPLE History of esophagogastroduodenoscopy (EGD) History of open reduction and internal fixation (ORIF) procedure Left Hip History of total knee replacement RT/LEFT History of transmetatarsal amputation of 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 Family History Daughter Breast cancer Unknown Emphysema, unspecified Family/Other Family history of diabetes mellitus NEPHEW Other Family history non-contributory No family history of adverse response to anesthesia Social History Smoking Status: Never smoker Second Hand Exposure: No; Do You Dip or Chew Tobacco: No; Tobacco Cessation Education Requested by Patient: No Hx Alcohol Use: No Hx Substance Use: No Preferred Language: Swazi Communication Ability: Effective Visual Impairment: No Limitations Hot Dip Tinning Supervisor Required: No Beliefs That Will Affect Care: None marital status: Current Living Situation: Spouse current occupational status: retired Other Information That Helps Us Care for You: No Feels Safe at Home: Yes Safety Concerns: Feels Safe At This Time caffeine: Yes Seatbelt Use: always Assistive Devices: Wheelchair Signed By:<Electronically signed by Juan Johnson MD>02/04/21 0752 Created: 02/03/21 1555 The status of this report is Signed.Draft = Not yet reviewed or approved by Medical Physician.Signed = Reviewed and approved by Medical Physician. Allergies Allergy/AdvReac Type Severity Reaction Status Date / Time metformin Allergy Unknown does not Verified 02/21/21 14:47 remember pioglitazone Allergy Unknown ? NOT SURE Verified 02/21/21 14:47 rosiglitazone Allergy Unknown NOT SURE Verified 02/21/21 14:47 simvastatin Allergy Unknown "did not Verified 02/21/21 14:47 feel well while taking" ANGEL Inhibitors AdvReac Unknown Cough Verified 02/21/21 14:47 escitalopram AdvReac Unknown Unknown Verified 02/21/21 14:47 homatropine AdvReac Unknown Unknown Verified 02/21/21 14:47 [From Hycodan (with homatropin)] oxycodone AdvReac Unknown Nausea Verified 02/21/21 14:47 Yhalfrq-Rlv-Xvy Reductase AdvReac Unknown LEGS HURT Verified 02/21/21 14:47 Inhibitor CAT GUT SUTURES Allergy Unknown SLOW Uncoded 02/21/21 14:47 HEALING,INFLAMED TISSUE Home Medications Medication Instructions Recorded Confirmed Type cetirizine 10 mg tablet (Zyrtec) 10 mg PO QPM 07/07/18 02/21/21 History vit B complx, C-iron 8 mg-folic 2 tab PO QDD 12/19/18 02/21/21 History acid 800 mcg-D3 1,000 unit-zinc tablet (ProRenal) biotin 1 mg capsule 1 mg PO BID cap 02/01/19 02/21/21 History cranberry 400 mg capsule 800 mg PO BID 02/01/19 02/21/21 History lactobacillus combination no.4 3 3,000 mmu cells PO BIDM cap 02/01/19 02/21/21 History billion cell capsule (Probiotic) calcium acetate(phosphat bind) 667 667 mg PO BID cap 03/12/20 02/21/21 History mg capsule labetalol 200 mg tablet 200 mg PO UD 05/21/20 02/21/21 History bumetanide 2 mg tablet 2 mg PO BID #180 tab 06/11/20 02/21/21 Rx apixaban 5 mg tablet (Eliquis) 2.5 mg PO BID #90 tab 07/17/20 02/21/21 Rx vitamins A,C,A-dqom-uezruz 14,320 1 cap PO BID 10/10/20 02/21/21 History unit-226 mg-200 unit capsule (PreserVision AREDS) omeprazole 40 mg capsule,delayed 40 mg PO QAM #90 cap 10/11/20 02/21/21 Rx release diphenhydramine 25 1 tab PO Q4H PRN 02/04/21 02/21/21 History mg-acetaminophen 500 mg tablet (Tylenol PM Extra Strength) amoxicillin 500 mg capsule 500 mg PO DAILY 14 Days #14 cap 02/17/21 02/21/21 Rx doxycycline hyclate 100 mg tablet 100 mg PO bid 14 Days #28 tab 02/17/21 02/21/21 Rx collagenase clostridium histo. 250 1 applic TOPICAL UD PRN 02/21/21 02/21/21 History unit/gram topical ointment (Santyl) hydrocodone 5 mg-acetaminophen 325 1 tab PO UD PRN 02/21/21 02/21/21 History mg tablet loperamide 2 mg capsule (Imodium 2 mg PO UD PRN 02/21/21 02/21/21 History A-D) miconazole nitrate 2 % topical 1 applic TOPICAL WK 02/21/21 02/21/21 History ointment (Aloe [place] Antifungal (miconazole)) oxcarbazepine 300 mg tablet 150 - 300 mg PO BID 02/21/21 02/21/21 History (Trileptal) promethazine 25 mg tablet 25 mg PO UD PRN 02/21/21 02/21/21 History lamotrigine 25 mg tablet (Lamictal) 25 mg PO BID #60 tab 02/25/21 Rx Past Med/Surg History Medical History Anemia Chronic- Hgb 8.2-10.0 for past year Asymptomatic bilateral carotid artery stenosis Atherosclerosis without hemodynamically significant stenosis in the carotid arteries per 06/09/18 carotid doppler Atrial fibrillation On Eliquis- no cardioversion, follows with PCP. PT REPORTS HX AFIB ONE TIME WHILE IN HOSPITAL FOLLOWS DR HARPER Broken arm [id number] SURGERY, states she can not have it fixed due to fistula C. difficile colitis hx (2019) does have chronic diarrhea (r/t removal of gallbladder, per pt). Chronic pain Cirrhosis of liver Diabetes Hx of Type 2 IDDM -- no medications currently since placed on diaylsis. Diabetic nephropathy Disc degeneration, lumbar Encounter for management of wound VAC WOUND VAC LEFT FOOT , REASON FOR CURRENT ANTIBIOTICS PER PT End stage renal disease DIALYSIS M/W/F [place] LEFT ARM FISTULA Erosive (osteo)arthritis Gangrene LEFT MIDDLE FINGER, HAS HAD FOR 9 MONTHS GERD (gastroesophageal reflux disease) Gout hx Hiatal hernia HTN (hypertension) PT REPORTS BP HAS BEEN LOW LATELY Hyperlipidemia Left ventricular hypertrophy Moderate/concentric per 05/2020 ECHO- no bow string maker at this time - follows with PCP Lymphedema r/t left arm fracture (unable to be repaired in the past) On anticoagulant therapy Osteoporosis no medications Peripheral arterial disease Pulmonary hypertension Per 05/23/20 ECHO= RV systolic pressure elevated > 60 mmHg (severe pulmonary hypertension RVSP 64 mmHg) Scoliosis Shoulder problem RIGHT ROTATOR CUFF PER PT Sleep apnea NO DEVICE Spinal stenosis Trigeminal neuralgia Follows with neuro- last seen 09/03/20- no acute issues. Usually stable on Lamictal and oxcarbazepine. 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 Family History Daughter Breast cancer Unknown Emphysema, unspecified Family/Other Family history of diabetes mellitus NEPHEW Other Family history non-contributory No family history of adverse response to anesthesia Social History Smoking Status: Never smoker Second Hand Exposure: No; Do You Dip or Chew Tobacco: No; Hx Alcohol Use: No Hx Substance Use: No Preferred Language: Swazi Communication Ability: Effective Visual Impairment: No Limitations Hot Dip Tinning Supervisor Required: No Beliefs That Will Affect Care: None marital status: Current Living Situation: Spouse current occupational status: retired Other Information That Helps Us Care for You: No Feels Safe at Home: Yes caffeine: Yes Seatbelt Use: always Assistive Devices: Wheelchair
[~2021-02-26 07:14] MED LIST changes: -AMOX500C3 PO; -BUME2TAB3 PO; -CALC0.2510 PO; -CETI10TA84 PO; -HYDR-4079 PO; -LBT/300 PO; -OMEP40CA41 PO; -OXCA1TAB28 PO; -PROM25TA9 PO; +SODIUM CHLORIDE 0.9% 1000ML IV SCH; -WARF-281 PO
[2021-02-26 08:25] LABS: Partial Thromboplastin Ratio 1.1; Partial Thromboplastin Time 29.1 Seconds (21.0-31.0); Prothrombin Time 10.2 Seconds (9.0-12.0)
[2021-02-26 08:42] LABS: BUN Creatinine Ratio 5.3 (10-20); Calcium 9.2 mg/dl (8.5-10.1); Creatinine Clr Calc Pharmacy 15.2 ml/min; Est GFR (African American) 20.6 ml/min; Est GFR (Non-African American) 17.8 ml/min; Potassium 3.5 mmol/L (3.5-5.1)
[2021-02-26] MEDS ORDERED: PROPOFOL IV EMULSION 10 MG/ML 20 ML VIAL IV ONE (09:58)
[2021-02-26] MEDS ORDERED: ONDANSETRON INJ 2 MG/ML 2 ML VIAL ONE (09:58)
[2021-02-26] MEDS ORDERED: ROCURONIUM BROMIDE 10 MG/ML 5 ML VIAL IV ONE (09:58)
[2021-02-26] MEDS ORDERED: LIDOCAINE 2% 2 ML VIAL/AMP(20MG/ML) INFIL ONE (09:58)
[2021-02-26] MEDS ORDERED: fentaNYL citrate 100 MCG/2 ML VIAL ONE (09:58)
[2021-02-26] MEDS ORDERED: HEPARIN (PORCINE) 1000 UNIT/ML 10 ML (CATH LAB USE ONLY) ONE (10:00)
[2021-02-26] MEDS ORDERED: LIDOCAINE 1% LOCAL 20 ML VIAL ONE (10:01)
[2021-02-26] MEDS ORDERED: ONDANSETRON INJ 2 MG/ML 2 ML VIAL IV PRN ×2 (10:07→13:23)
[2021-02-26] MEDS ORDERED: ATROPINE SULFATE 0.1 MG/ML 10ML SYR IV PRN (10:07)
[2021-02-26] MEDS ORDERED: fentaNYL citrate 100 MCG/2 ML VIAL IV PRN (10:07)
[2021-02-26] MEDS ORDERED: DEXAMETHASONE SOD INJ 4 MG/ML VIAL ONE (10:13)
[2021-02-26] MEDS ORDERED: HEPARIN SOD (PORCINE) 1000 UNIT/ML ONE (13:19)
[2021-02-26] MEDS ORDERED: COLLAGENASE OINT 30 GM TUBE TOP PRN (13:28)
[2021-02-26] MEDS ORDERED: LOPERAMIDE HCL 2 MG CAP PO PRN (13:28)
[2021-02-26] MEDS ORDERED: HYDROCODONE/ACETAMOPHEN 5/325MG TAB PO PRN (13:28)
[2021-02-26] MEDS ORDERED: PROMETHAZINE HCL 25 MG TAB PO PRN (13:28)
[2021-02-26] MEDS ORDERED: THROMBIN 5000 UNITS KIT TOP ONE (13:30)
[2021-02-26] MEDS ORDERED: GELATIN SPONGE OP 25X50MM 1 EA SPNG EXT ONE (13:30)
--- NOTE | 2021-02-26 13:35 | Post Operative Brief Note ---
Immediate Post Op Note v1 Date of Surgery February 26, 2021 Pre & Post Diagnosis Operation Date: 02/26/21 09:00 Pre-Op Diagnosis: Steal Syndrome Left Arm Post-Op Diagnosis: Steal Syndrome Left Arm, Gangrene I identified the patient and participated in the time-out.: Yes Procedure Operation Date: 02/26/21 09:00 Actual Procedures p Left Distal Revascularization and Internal Ligation of Fistula Left Upper Extremity, [place] of Right Great Saphenous Vein - Juan Johnson MD Surgeon Juan Johnson MD Coil Strapper MD Bart Stephens,PAC Estimated Blood Loss 50 Findings Consistent with Post-Op Diagnosis Anesthesia Type General Complications none Disposition Accompanied Patient To Recovery: No Disposition: Recovery Room
--- NOTE | 2021-02-26 13:48 | Operative Report ---
Post Operative Report Pre & Post Diagnosis Operation Date: 02/26/21 09:00 Pre-Op Diagnosis: Steal Syndrome Left Arm Post-Op Diagnosis: Steal Syndrome Left Arm, Gangrene I identified the patient and participated in the time-out.: Yes Procedure Operation Date: 02/26/21 09:00 Actual Procedures p Left Distal Revascularization and Internal Ligation of Fistula Left Upper Extremity, [place] of Right Great Saphenous Vein - Juan Johnson MD Surgeon Juan Johnson MD Phlebotomy Support Tech MD Geronimo Stephensarchmarium,PAC Estimated Blood Loss 50 Findings Consistent with Post-Op Diagnosis Specimens none Anesthesia Type General Complications none Disposition Accompanied Patient To Recovery: No Disposition: Recovery Room Indications This is a 76 year old female with ESRD with a LUE AVF complicated by steal syndrome with digital gangrene. Description of Procedure The patient was brought to the operating room and placed upon the operating room table. General anesthesia was induced and the left upper extremity and right lower extremity were prepped and draped in the usual sterile fashion. A surgical timeout was performed confirming the correct patient and procedure. In the left upper remedy, longitudinal incision was made in the skin overlying the brachial artery. Electrocautery and sharp dissection were used to identify the brachial artery. Attention was then turned to identification of the vasculature in the forearm, and a transverse incision was made a few centimeters distal to the antecubital fossa. The ulnar artery was identified and followed back to the bifurcation with the radial artery and this too was isolated. In the right lower extremity, a longitudinal incision was created medial to the femoral pulse and extending down the medial thigh. With combination of electrocautery and sharp dissection, the greater saphenous vein was identified and isolated. Any branching veins that were identified were ligated. An appropriate length of vein was identified, ligated, and preserved to be used as a graft in the left upper extremity. Hemostasis was ensured and the incision was closed in a multilayer fashion. Hung were used to close the skin. Returning to the left upper extremity, curved DeBakey clamps were used to gain proximal and distal control of the artery at the site of the planned proximal anastomosis. An arteriotomy was made with an 11 blade and Nunez scissors. The graft was prepared by beveling the end and by passing a Luis balloon the length of the vein. A 6-0 PDS suture was used to complete the anastomosis. A tunneler was used to place the graft across the subcutaneous tissue of the antecubital fossa, spanning from the upper incision to the lower incision. Similarly, in the forearm, an arteriotomy was made after proximal and distal control was obtained with bulldog clamps, the vein was prepared, and had been flushed with heparinized saline. Again, 6-0 PDS suture was used to complete this anastomosis. Hemostasis was ensured at both anastomoses. We then used a 3-0 silk tie to ligate the brachial artery immediately proximal to the bifurcation to eliminate ongoing steal. A Doppler signal was identified in the subcutaneous tissue overlying the graft, and the ulnar artery immediately distal to the anastomosis, and in the palmar arch. Improved circulation was immediately apparent in the hand. The incisions were closed with 3-0 Vicryl suture to approximate the soft tissue followed by skin hung. A sterile dressing was applied. The patient was allowed awaken from general anesthesia having tolerated the procedure without any apparent complications. Dr. Johnson was present and scrubbed for the entire procedure. I attest to the content of the Intraoperative Record and any orders documented therein. Any exceptions are noted below.
--- NOTE | 2021-02-26 14:25 | Anesthesiology Progress Note ---
Date of Service February 26, 2021 Anesthesia Post Procedure Vital Signs Vital Signs: Temp Pulse Pulse Resp BP Pulse Ox 02/26/21 14:15 69 16 105/52 L 95 02/26/21 14:05 63 22 100/47 L 97 02/26/21 13:55 70 17 104/50 L 98 02/26/21 13:49 36.2 C L 68 19 106/61 99 02/26/21 07:43 36.9 C 75 20 106/66 98 Pain Intensity Left Hand: Pain Intensity: 2 Transfer of Care Handoff Completed per policy Notes Mental Status: alert / awake / arousable Patient Amnestic to Procedure: Yes Nausea / Vomiting: adequately controlled Pain: adequately controlled Airway Patency, RR, SpO2: stable & adequate BP & HR: stable & adequate Hydration State: stable & adequate Anesthetic Complications: no major complications apparent and Pt Satisfied with anesthetic care Notes: The patient is awake and comfortable. Her vital signs are stable.
--- NOTE | 2021-02-26 15:07 | Nephrology Consultation ---
Date of Consultation February 26, 2021 Assessment & Plan (1) ESRD (end stage renal disease) on dialysis: * Volume status and electrolyte balance are acceptable at this time. No acute indication for HD * Recheck PRP in am * Next HD scheduled for Wednesday as outpatient at [facility] * Recommend low K/HD diet (2) Steal syndrome as complication of dialysis access: * s/p DRIL L RC AVF 02/26/21 History of Present Illness Reason for Consultation: ESRD Attending Physician: Juan Johnson MD History of Present Illness Mrs. Diaz is a 76 year old white female who is seen at the request of Dr. Johnson due to ESRD on HD. Medical records in the EMR were reviewed today and are summarized as follows: ESRD on HD MWF [facility] (3hr 45min F-180NR Qb 350 Qd 800 2K 2.5Ca 1Mg EDW 66.4kg L RC AVF), PVD s/p L TMA 01/25, L femur fracture s/p ORIF 09/23, SERENITY, pulmonary HTN, R heart failure, atrial fibrillation (apixaban therapy), cardiac cirrhosis, AODM, trigeminal neuralgia and cervical spinal stenosis. She was hospitalized 07/26 due to acute cholecystitis and required laparoscopic cholecystectomy. Mrs. Diaz was recently diagnosed w/ steal phenomenon involving her L arm AVF and hand. She underwent Distal Revascularization with Interval Ligation (DRIL) procedure this morning to restore blood flow to her fingers. Mrs. Diaz reports that she was dialyzed yesterday in anticipation of her surgery today. Her next dialysis is scheduled for Wednesday. She currently denies fever, angina or dyspnea. Allergies Allergy/AdvReac Type Severity Reaction Status Date / Time metformin Allergy Unknown does not Verified 02/26/21 07:38 remember pioglitazone Allergy Unknown ? NOT SURE Verified 02/26/21 07:38 rosiglitazone Allergy Unknown NOT SURE Verified 02/26/21 07:38 simvastatin Allergy Unknown "did not Verified 02/26/21 07:38 feel well while taking" ANGEL Inhibitors AdvReac Unknown Cough Verified 02/26/21 07:38 escitalopram AdvReac Unknown Unknown Verified 02/26/21 07:38 homatropine AdvReac Unknown Unknown Verified 02/26/21 07:38 [From Hycodan (with homatropin)] oxycodone AdvReac Unknown Nausea Verified 02/26/21 07:38 Aszqlaq-Cxn-Vxq Reductase AdvReac Unknown LEGS HURT Verified 02/26/21 07:38 Inhibitor CAT GUT SUTURES Allergy Unknown SLOW Uncoded 02/26/21 07:38 HEALING,INFLAMED TISSUE Home Medications Medication Instructions Recorded Confirmed Type cetirizine 10 mg tablet (Zyrtec) 10 mg PO QPM 07/07/18 02/26/21 History vit B complx, C-iron 8 mg-folic 2 tab PO QDD 12/19/18 02/26/21 History acid 800 mcg-D3 1,000 unit-zinc tablet (ProRenal) biotin 1 mg capsule 1 mg PO BID cap 02/01/19 02/26/21 History cranberry 400 mg capsule 800 mg PO BID 02/01/19 02/26/21 History lactobacillus combination no.4 3 3,000 mmu cells PO BIDM cap 02/01/19 02/26/21 History billion cell capsule (Probiotic) calcium acetate(phosphat bind) 667 667 mg PO BID cap 03/12/20 02/26/21 History mg capsule labetalol 200 mg tablet 200 mg PO UD 05/21/20 02/26/21 History bumetanide 2 mg tablet 2 mg PO BID #180 tab 06/11/20 02/26/21 Rx apixaban 5 mg tablet (Eliquis) 2.5 mg PO BID #90 tab 07/17/20 02/26/21 Rx vitamins A,C,O-vhqv-dpfrch 14,320 1 cap PO BID 10/10/20 02/26/21 History unit-226 mg-200 unit capsule (PreserVision AREDS) omeprazole 40 mg capsule,delayed 40 mg PO QAM #90 cap 10/11/20 02/26/21 Rx release diphenhydramine 25 1 tab PO Q4H PRN 02/04/21 02/26/21 History mg-acetaminophen 500 mg tablet (Tylenol PM Extra Strength) amoxicillin 500 mg capsule 500 mg PO DAILY 14 Days #14 cap 02/17/21 02/26/21 Rx doxycycline hyclate 100 mg tablet 100 mg PO bid 14 Days #28 tab 02/17/21 02/26/21 Rx collagenase clostridium histo. 250 1 applic TOPICAL UD PRN 02/21/21 02/26/21 History unit/gram topical ointment (Santyl) hydrocodone 5 mg-acetaminophen 325 1 tab PO UD PRN 02/21/21 02/26/21 History mg tablet loperamide 2 mg capsule (Imodium 2 mg PO UD PRN 02/21/21 02/26/21 History A-D) miconazole nitrate 2 % topical 1 applic TOPICAL WK 02/21/21 02/26/21 History ointment ([address] Antifungal (miconazole)) oxcarbazepine 300 mg tablet 150 - 300 mg PO BID 02/21/21 02/26/21 History (Trileptal) promethazine 25 mg tablet 25 mg PO UD PRN 02/21/21 02/26/21 History lamotrigine 25 mg tablet (Lamictal) 25 mg PO BID #60 tab 02/25/21 02/26/21 Rx Patient History Medical History Anemia Chronic- Hgb 8.2-10.0 for past year Asymptomatic bilateral carotid artery stenosis Atherosclerosis without hemodynamically significant stenosis in the carotid arteries per 06/09/18 carotid doppler Atrial fibrillation On Eliquis- no cardioversion, follows with PCP. PT REPORTS HX AFIB ONE TIME WHILE IN HOSPITAL FOLLOWS DR HARPER Broken arm [id number] SURGERY, states she can not have it fixed due to fistula C. difficile colitis hx (2019) does have chronic diarrhea (r/t removal of gallbladder, per pt). Chronic pain Cirrhosis of liver Diabetes Hx of Type 2 IDDM -- no medications currently since placed on diaylsis. 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 Usually stable on Lamictal and oxcarbazepine. 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 Family History Daughter Breast cancer Unknown Emphysema, unspecified Family/Other Family history of diabetes mellitus NEPHEW Other Family history non-contributory No family history of adverse response to anesthesia Social History Smoking Status: Never smoker Second Hand Exposure: No; Do You Dip or Chew Tobacco: No; Hx Alcohol Use: No Hx Substance Use: No Preferred Language: American Communication Ability: Effective Visual Impairment: No Limitations Tutorial Laboratory Supervisor Required: No Beliefs That Will Affect Care: None marital status: Current Living Situation: Spouse current occupational status: retired Other Information That Helps Us Care for You: No Feels Safe at Home: Yes caffeine: Yes Seatbelt Use: always Assistive Devices: Wheelchair Review of Systems Constitutional: no fever Eyes: no problem reported Ear, Nose, Mouth, Throat: no problem reported Respiratory: no cough and no dyspnea Cardiovascular: no chest pain, no palpitations and no edema Gastrointestinal: no abdominal pain, no nausea, no vomiting and no diarrhea/loose stools Genitourinary: no dysuria and no hematuria Musculoskeletal: no back pain Integumentary: no rash Neurologic: no confusion Physical Exam Constitutional: not in distress Eyes: PERRL, conjunctivae normal, anicteric sclerae ENMT: external ear and nose normal, oropharynx normal Neck: trachea midline, no thyromegaly Respiratory: normal respiratory effort, lungs clear to auscultation Cardiovascular: Rate/Rhythm: + tachycardic AVF + bruit Gastrointestinal (Abdomen): Inspection/Auscultation: + hypoactive bowel sounds Percussion/Palpation: abdomen soft; abdomen nontender Results & Data ([facility]) Vital Signs (Past 12 Hours) Vital Signs Temp Pulse Pulse Resp BP Pulse Ox 02/26/21 14:35 37.2 C 58 L 18 106/55 L 98 02/26/21 14:25 78 17 101/52 L 97 02/26/21 14:15 69 16 105/52 L 95 02/26/21 14:05 63 22 100/47 L 97 02/26/21 13:55 70 17 104/50 L 98 02/26/21 13:49 36.2 C L 68 19 106/61 99 02/26/21 07:43 36.9 C 75 20 106/66 98 Laboratory Results Laboratory Results - last 24 hr 02/26/21 02/26/21 02/26/21 07:30 07:45 07:45 PT 10.2 INR 1.0 APTT 29.1 PTT Ratio 1.1 Sodium 137 Potassium 3.5 Chloride 101 Carbon Dioxide 27 Anion Gap 9.0 BUN 13 D Creatinine 2.50 H D Est Cr Clr Drug Dosing 15.2 Est GFR ( Amer) 20.6 Est GFR (Non-Af Amer) 17.8 BUN/Creatinine Ratio 5.3 L Glucose 133 H POC Glucose 137 H Calcium 9.2 COVID-19 Eval Order SARS-CoV-2, RNA, NAAT 02/26/21 02/26/21 02/26/21 07:49 07:49 13:51 PT INR APTT PTT Ratio Sodium Potassium Chloride Carbon Dioxide Anion Gap BUN Creatinine Est Cr Clr Drug Dosing Est GFR ( Amer) Est GFR (Non-Af Amer) BUN/Creatinine Ratio Glucose POC Glucose 153 H Calcium COVID-19 Eval [facility] SARS-CoV-2, RNA, NAAT NEGATIVE PG Care Time/CCT Total # of Minutes Spent Total Time Spent with Patient: Total time spent is greater than 50% in coordination of care (as documented) at patient's floor/unit and/or counseling patient: Coding Level of Care Code 47396 Inpt Consult Level 5 Diagnoses ESRD (end stage renal disease) on dialysis N18.6; Z99.2 Steal syndrome as complication of dialysis access T82.898A
[2021-02-26] MEDS: HYDROCODONE/ACETAMOPHEN 5/325MG TAB PO PRN ×2 (15:39→20:57)
[2021-02-26] MEDS ORDERED: ACETAMINOPHEN 500 MG TAB PO PRN (16:10)
[2021-02-26] MEDS ORDERED: diphenhydrAMINE Capsule 25 MG CAP PO PRN (16:12)
[2021-02-26] MEDS ORDERED: NEPHROCAPS PO SCH (16:30)
[2021-02-26] MEDS: ADVANCED PROBIOTIC 1250 MG CAPSULE PO SCH (16:49)
[2021-02-26] MEDS: CALCIUM ACETATE 667 MG CAP/TAB PO SCH (16:50)
[2021-02-26] MEDS: ceFAZolin 1000MG 1,000 MG/7.5 ML SYR IV SCH (20:56)
[2021-02-26] MEDS ORDERED: NON-FORMULARY MEDICATION (Biotin 1 mg capsule) PO SCH (21:00)
[2021-02-26] MEDS ORDERED: CETIRIZINE HCL 10 MG TABLET PO SCH (21:00)
[2021-02-26] MEDS ORDERED: OXcarbazepine 150 MG TABLET PO SCH (21:00)
[2021-02-26] MEDS ORDERED: LABETALOL HCL 200 MG TAB PO SCH (21:00)
[2021-02-26] MEDS: DOXYCYCLINE HYCLATE 100 MG CAP PO SCH (21:02)
[2021-02-26] MEDS: lamoTRIgine 25 MG TAB PO SCH (21:02)
[2021-02-26] MEDS: APIXABAN 2.5 MG TAB PO SCH (21:02)
[2021-02-26] MEDS: BUMETANIDE 1 MG TAB PO SCH (21:02)
[2021-02-27] MEDS: ceFAZolin 1000MG 1,000 MG/7.5 ML SYR IV SCH (03:00)
[2021-02-27] MEDS: HYDROCODONE/ACETAMOPHEN 5/325MG TAB PO PRN (07:50)
[2021-02-27 08:03] LABS: Hematocrit (blood only) 30.6 % (37-47); Hemoglobin 9.9 g/dL (12.0-16.0); Mean Corpuscular Hgb Conc 32.4 g/dL (32-36); Mean Corpuscular Volume 105.2 fL (80-100); Mean Platelet Volume 8.5 fL (7.4-10.4); Nucleated RBC # (auto) 0.03 K/uL (0-0); Nucleated RBC % (auto) 0.3 %; Platelet Count 154 K/uL (130-400); RDW Coefficient of Variation 18.9 % (11.5-14.5); RDW Standard Deviation 68.6 fL (36.4-46.3); Red Blood Count 2.91 M/uL (4.2-5.4); White Blood Count 7.48 K/uL (4.8-10.8)
[2021-02-27 08:35] LABS: BUN Creatinine Ratio 6.6 (10-20); Calcium 9.1 mg/dl (8.5-10.1); Creatinine Clr Calc Pharmacy 9.7 ml/min; Est GFR (Non-African American) 10.4 ml/min
--- NOTE | 2021-02-27 08:45 | Nephrology Progress Note ---
Date of Service February 27, 2021 Assessment & Plan (1) ESRD (end stage renal disease) on dialysis: Plan: * Volume status and electrolyte balance are acceptable at this time. No acute indication for HD * Next HD scheduled for Wednesday as outpatient at [facility] (2) Steal syndrome as complication of dialysis access: Plan: * s/p DRIL L RC AVF 02/26/21 * L arm AVF + bruit. L hand is now warm and appears to be better perfused Admission and Anticipated Discharge Date Admission Date: February 26, 2021 Subjective Mrs. Diaz was evaluated in her hospital room this morning. She denied fever, dyspnea or angina. She is tolerating her diet. She reports warmth and much less discomfort involving her L hand Review of Systems Constitutional: no fever Eyes: no problem reported Ear, Nose, Mouth, Throat: no problem reported Respiratory: no cough and no dyspnea Cardiovascular: no chest pain, no palpitations and no edema Gastrointestinal: no abdominal pain, no nausea, no vomiting and no diarrhea/loose stools Genitourinary: no dysuria and no hematuria Musculoskeletal: no back pain Integumentary: no rash Neurologic: no confusion Physical Exam Constitutional: not in distress Eyes: PERRL, conjunctivae normal, anicteric sclerae ENMT: external ear and nose normal, oropharynx normal Neck: trachea midline, no thyromegaly Respiratory: normal respiratory effort, lungs clear to auscultation Cardiovascular: Rate/Rhythm: regular rate and regular rhythm Gastrointestinal (Abdomen): Inspection/Auscultation: normal bowel sounds Percussion/Palpation: abdomen soft; abdomen nontender Neurologic: awake; not confused Results & Data ([facility]) Vital Signs (Past 12 Hours) Vital Signs Temp Pulse Pulse Resp BP Pulse Ox 02/27/21 08:24 36.7 C 84 16 105/58 L 93 02/27/21 02:54 36.6 C 71 18 101/61 99 02/26/21 22:37 36.8 C 78 16 87/50 L 96 02/26/21 20:58 71 95/56 L Laboratory Results Laboratory Tests 02/27/21 02/27/21 07:45 07:45 WBC 7.48 Hgb 9.9 L Hct 30.6 L Plt Count 154 Sodium 134 L Potassium 4.0 Chloride 100 Carbon Dioxide 25 BUN 26 H D Creatinine 3.91 H D Glucose 101 H Calcium 9.1 PG Care Time/CCT Total # of Minutes Spent Total Time Spent with Patient: Total time spent is greater than 50% in coordination of care (as documented) at patient's floor/unit and/or counseling patient: Coding Level of Care Code 57110 Subseq Hosp Care Lvl 3 Diagnoses ESRD (end stage renal disease) on dialysis N18.6; Z99.2 Steal syndrome as complication of dialysis access T82.898A
[2021-02-27] MEDS: ADVANCED PROBIOTIC 1250 MG CAPSULE PO SCH (08:58)
[2021-02-27] MEDS: APIXABAN 2.5 MG TAB PO SCH (08:59)
[2021-02-27] MEDS ORDERED: LABETALOL HCL 200 MG TAB PO SCH (09:00)
[2021-02-27] MEDS ORDERED: PANTOprazole 40 MG TAB PO SCH (09:00)
[2021-02-27] MEDS ORDERED: OXcarbazepine 150 MG TABLET PO SCH (09:00)
[2021-02-27] MEDS ORDERED: CEROVITE ADV FORMULA TAB PO SCH (09:00)
[2021-02-27] MEDS: lamoTRIgine 25 MG TAB PO SCH (09:02)
[2021-02-27] MEDS: BUMETANIDE 1 MG TAB PO SCH (09:02)
[2021-02-27] MEDS: DOXYCYCLINE HYCLATE 100 MG CAP PO SCH (09:02)
[2021-02-27] MEDS: CALCIUM ACETATE 667 MG CAP/TAB PO SCH (09:03)
--- NOTE | 2021-02-27 14:18 | Discharge Summary ---
Date of Service February 27, 2021 Admission HPI Per Admitting Provider [place] [address] History & Physical ReportSigned with Addyaneth Patient: KEVIN JEWELL Date: 02/04/21MR#: [id number] Phy: Juan Johnson M.D.Acct ID: [id number] Phy: Roderick Espino MDBirth Date: 1945Fa Phy: Age: 75Location: ASUSex: FRoom/Bed: cc: ~ *NOTICE TO RECEIVING DEMOCRAT/AGENCY This information is strictly Confidential and protected under [place] law. [place] law prohibits you from making any further disclosure of this information unless further disclosure is expressly permitted by the written consent of the person to whom it pertains or is authorized by law. A general authorization for the release of medical or other information is not sufficient for this purpose. Hospital accepts no responsibility if the information is made available to any other person, INCLUDING THE PATIENT. [id number] February 04, 2021 07:52 Lungs were clear Cor had a RRR Abd was benign Addendum Signed By:<Electronically signed by Juan Johnson MD>02/04/21ddendum Cosigned By:Created: 02/04/21 Date of Service February 03, 2021 History of Present Illness Primary Care Provider: Roderick Espino MD Name: KEVIN JEWELL Patient Number: [id number] : 1945 Date of Service: 01/23/2021 Chief Complaint: _Follow-up for left foot transmetatarsal amputation HPI: _Mrs. Marte is an elderly female who presents to Dr. Johnson's vascular surgery clinic today for a 6-week follow-up regarding her left foot transmetatarsal amputation, as well as her left third finger wound. Patient states that she is now in a wound VAC on her left foot, and has been told that it is healing well, however, she is on an oral antibiotic for a possible infection in a portion of her foot wound. She also states that the wound clinic has set her up to see Dr. Дмитрий Jones to evaluate her left third finger wound next week. She has been continuing to paint this with Betadine. She has not noticed considerable improvement. She denies any other new complaints at this time aside from pain in her left third finger which has been chronic. She denies fevers chills nausea vomiting or other concerns. She continues to undergo dialysis through her left upper arm AV fistula. 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 Current Home Meds: (Last Updated 01/23 10:18) OXcarbazepine (Trileptal 300 mg oral tablet) 150mg po in am and 300mg in pm acetaminophen-HYDROcodone (acetaminophen-HYDROcodone 325 mg-5 mg oral tablet) 1 tab PO q6h PRN: as needed for pain apixaban (apixaban 5 mg oral tablet) 5 mg PO bid bumetanide (Bumex 1 mg oral tablet) 1 mg PO Daily calcium acetate (calcium acetate 667 mg oral capsule) 1 caps with breakfast and supper labetalol (labetalol 200 mg oral tablet) 2 tab po daily on non dialysis days and 1 tab po daily on dialysis day after dialysis multivitamin with minerals (ProRenal Vital oral tablet) TAKE 1 TABLET BY MOUTH EVERY DAY mupirocin topical (mupirocin topical 2% cream) 1 appl topical tid omeprazole (omeprazole 20 mg oral delayed release tablet) 20 mg PO qAM promethazine (promethazine 25 mg oral tablet) 25 mg PO q6h PRN: as needed for nausea/vomiting sulfamethoxazole-trimethoprim (sulfamethoxazole-trimethoprim 400 mg-80 mg oral tablet) 1 tab PO Daily Allergies and Sensitivities: Actos Avcynthia Past Medical History: Problems: Gangrene of finger of left hand S/P transmetatarsal amputation of foot Osteomyelitis of foot Gangrene of toe of left foot Status post amputation of lesser toe of left foot Toe ulcer Toe infection Right second toe ulcer Intertrochanteric fracture of left hip Hip fracture Dependent on hemodialysis End stage renal disease on dialysis Spondylolisthesis of lumbar region Lumbar spinal stenosis Depression Acid reflux Asthma Knee pain, bilateral LBP (low back pain) HTN (hypertension) Osteoarthritis of knee CTS (carpal tunnel syndrome) Finger Knee DDD Trigeminal neuralgia BM (bacterial meningitis) OBJECTIVE Vitals: Last Updated 01/23/21 10:18 Date Temp BP Location Pulse RR SpO2 Pain 01/23/21 90/44 Right Arm 62 93 0 12/03/20 112/56 Right Arm 67 97 12/03/20 0 Vital Signs are the last 3 documented. No Orthostatic Data Available Height and Weight: Last Updated 07/14/16 14:44 Date BMI Wt(kg) Wt(lb) Method Ht(cm) (ft-in) Method 07/14/16 45.51 105.69 233 Patient stated 152.4 5-0 Patient stated 06/09/16 44.92 104.33 230 Patient stated 152.4 5-0 Patient stated 08/14/14 121.7 268 Heights and Weights are the last 3 documented. Physical Exam Constitutional: In general patient is a mildly chronically ill-appearing elderly female no distress. She is in a wheelchair. Her left upper arm AV fistula demonstrates an excellent thrill and bruit throughout, there is a venous aneury sm at the proximal end. Her radial pulse is nonpalpable, and her left third finger continues to have black eschar at the tip with pale tissue in the periwound area. This is tender to touch, but is dry and there is no odor. Her left foot transmetatarsal amputation site continues to have a wound VAC in place, I do not see any necrosis in the periwound area, but her wound VAC was not removed in the office today. ASSESSMENT: _ PLAN: _ 1 ) _left third finger gangrene due to upper extremity arterial disease and vascular access steal syndrome Patient continues to have a nonhealing wound to the left third finger, this is not improving despite local wound care and regular care at the wound clinic. Due to her significant arterial disease and steal syndrome, we recommend that she undergo a left arm arteriogram with possible intervention on the occluded radial artery if possible. We would like to have this done prior to any orthopedic surgical intervention if possible, in order to facilitate healing. Patient is agreeable to this plan. The procedure was discussed at length with the patient by Dr. Johnson, she expressed understanding and agreement to proceed. 2 ) _status post left transmetatarsal amputation Patient is now over 3 months status post left transmetatarsal amputation due to nonhealing wounds and gangrene. Pictures reviewed in the [facility] website from the wound clinic indicate good granulation of this wound with her wound VAC. We recommend that she continue with that per the wound clinic and we will reevaluate her for this at a later time. She is advised to call with any other questions. Thank you for letting us participate in the care of this patient. Signature Line Electronic Signature on File Electronically Reviewed/Signed by: Marina Gardiner PA-C Author Signature Dt/Tm:01/23/2021 11:55 AM [facility] [address] [facility] [address] [place] [address] Electronically Reviewed/Signed by: MD Stevie Preciadoigner Signature Dt/Tm: 01/27/2021 08:56 AM Radiation Oncology Manager [facility] [address] [facility] [address] [place] [address] LM Result Type: HVI Outpt Note Date of Service: January 23, 2021 11:45 EDT Authorization Status: Final Author or Import Date: HETAL Gardiner, Marina on January 23, 2021 11:55 EDT Verified By: MD Alex, Juan Burnett on January 27, 2021 08:56 EDT Encounter info: [id number], [facility], Clinic, 01/23/2021 - 01/23/2021 Allergies Allergy/AdvReac Type Severity Reaction Status Date / Time simvastatin Allergy Mild "did not Verified 02/04/21 07:06 feel well while taking" metformin Allergy Unknown does not Verified 02/04/21 07:06 remember pioglitazone Allergy Unknown ? NOT SURE Verified 02/04/21 07:06 rosiglitazone Allergy Unknown NOT SURE Verified 02/04/21 07:06 Ywcehxu-Hie-Jfg Reductase AdvReac Intermediate LEGS HURT Verified 02/04/21 07:06 Inhibitor ANGEL Inhibitors AdvReac Mild Cough Verified 02/04/21 07:06 homatropine AdvReac Unknown Unknown Verified 02/04/21 07:06 [From Hycodan (with homatropin)] oxycodone AdvReac Unknown Nausea Verified 02/04/21 07:06 escitalopram AdvReac Unknown Verified 02/04/21 07:06 CAT GUT SUTURES Allergy Intermediate SLOW Uncoded 01/30/21 14:22 HEALING,INFLAMED TISSUE Home Medications Medication Instructions Recorded Confirmed Type cetirizine 10 mg tablet (Zyrtec) 10 mg PO QPM 07/07/18 02/04/21 History vit B complx, C-iron 8 mg-folic 2 tab PO QDD 12/19/18 02/04/21 History acid 800 mcg-D3 1,000 unit-zinc tablet (ProRenal) biotin 1 mg capsule 1 mg PO BID cap 02/01/19 02/04/21 History cranberry 400 mg capsule 800 mg PO BID 02/01/19 02/04/21 History lactobacillus combination no.4 3 3,000 mmu cells PO BIDM cap 02/01/19 02/04/21 History billion cell capsule (Probiotic) calcium acetate(phosphat bind) 667 667 mg PO BID cap 03/12/20 02/04/21 History mg capsule labetalol 200 mg tablet 200 mg PO UD 05/21/20 02/04/21 History bumetanide 2 mg tablet 2 mg PO BID #180 tab 06/11/20 02/04/21 Rx loperamide 2 mg capsule (Imodium 2 mg PO Q6H PRN #60 cap 06/27/20 02/04/21 Rx A-D) apixaban 5 mg tablet (Eliquis) 2.5 mg PO BID #90 tab 07/17/20 02/04/21 Rx lamotrigine 25 mg tablet (Lamictal) 25 mg PO BID #60 tab 09/03/20 02/04/21 Rx oxcarbazepine 300 mg tablet 300 mg PO .COMPLEX 30 Days #45 tab 09/03/20 02/04/21 Rx (Trileptal) miconazole nitrate 2 % topical 1 applic TOPICAL DAILY #1 tube 10/10/20 02/04/21 Rx ointment (Aloe [place] Antifungal (miconazole)) vitamins A,C,B-jraq-lpvtum 14,320 1 cap PO BID 10/10/20 02/04/21 History unit-226 mg-200 unit capsule (PreserVision AREDS) omeprazole 40 mg capsule,delayed 40 mg PO QAM #90 cap 10/11/20 02/04/21 Rx release promethazine 25 mg tablet 25 mg PO TID PRN #30 tab 10/11/20 02/04/21 Rx collagenase clostridium histo. 250 1 applic TOPICAL DAILY 14 Days #90 01/02/21 02/04/21 Rx unit/gram topical ointment (Santyl) g hydrocodone 5 mg-acetaminophen 325 1 tab PO TID #90 tab 02/03/21 02/04/21 Rx mg tablet diphenhydramine 25 1 tab PO Q4H PRN 02/04/21 02/04/21 History mg-acetaminophen 500 mg tablet (Tylenol PM Extra Strength) Past Med/Surg History Medical History Anemia Chronic- Hgb 8.2-10.0 for past year Asymptomatic bilateral carotid artery stenosis Atherosclerosis without hemodynamically significant stenosis in the carotid arteries per 06/09/18 carotid doppler Atrial fibrillation On Eliquis- no cardioversion, follows with PCP. Broken arm [id number] SURGERY, states she can not have it fixed due to fistula C. difficile colitis hx (2019) does have chronic diarrhea (r/t removal of gallbladder, per pt). Chronic pain Cirrhosis of liver Diabetes Hx of Type 2 IDDM -- no medications currently since placed on diaylsis. 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 Usually stable on Lamictal and oxcarbazepine. Surgical History AV fistula L upper extremity H/O tubal ligation History of carpal tunnel surgery History of Neuroplasty Decompression Median Nerve At Carpal Tunnel History of cataract surgery RT/LEFT History of cholecystectomy History of colonoscopy History of dilation and curettage History of ERCP MULTIPLE History of esophagogastroduodenoscopy (EGD) History of open reduction and internal fixation (ORIF) procedure Left Hip History of total knee replacement RT/LEFT History of transmetatarsal amputation of 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 Family History Daughter Breast cancer Unknown Emphysema, unspecified Family/Other Family history of diabetes mellitus NEPHEW Other Family history non-contributory No family history of adverse response to anesthesia Social History Smoking Status: Never smoker Second Hand Exposure: No; Do You Dip or Chew Tobacco: No; Tobacco Cessation Education Requested by Patient: No Hx Alcohol Use: No Hx Substance Use: No Preferred Language: Egyptian Communication Ability: Effective Visual Impairment: No Limitations Movement Therapist Required: No Beliefs That Will Affect Care: None marital status: Current Living Situation: Spouse current occupational status: retired Other Information That Helps Us Care for You: No Feels Safe at Home: Yes Safety Concerns: Feels Safe At This Time caffeine: Yes Seatbelt Use: always Assistive Devices: Wheelchair Signed By:<Electronically signed by Juan Johnson MD>02/04/21 0752 Created: 02/03/21 1555 The status of this report is Signed.Draft = Not yet reviewed or approved by Medical Physician.Signed = Reviewed and approved by Medical Physician. Admission Exam Per Admitting Provider Physical Exam Constitutional: In general patient is a mildly chronically ill-appearing elderly female no distress. She is in a wheelchair. 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 Her radial pulse is nonpalpable, and her left third finger continues to have black eschar at the tip with pale tissue in the periwound area. This is tender to touch, but is dry and there is no odor. Her left foot transmetatarsal amputation site continues to have a wound VAC in place, I do not see any necrosis in the periwound area, but her wound VAC was not removed in the office today. Principal Diagnosis 1. s/p LUE DRIL Procedure and RLE GSV harvest 2. Vascular steal syndrome of LUE Discharge Exam Constitutional WD/WN, vitals as above + ill appearing (chronically), cooperative and comfortable; not in distress Respiratory normal respiratory effort, lungs clear to auscultation Cardiovascular Rate/Rhythm: regular rate and regular rhythm Vessels: radial pulses present (L radial palpable and dopplerable); + abnormal peripheral pulses Extremities: + AV fistula (+thrill/bruit); + abnormal capillary refill (L 3rd fingertip dry gangrene, hand warmer/pink, good cap refill) Gastrointestinal (Abdomen) Inspection/Auscultation: normal bowel sounds Percussion/Palpation: abdomen soft; abdomen nontender Skin + wound (L forearm skin tears mild bleeding noted) and + incision (RLE noa mild ecchymosis/tender/bloody drainage. L arm C/D/I noa.) Neurologic moves all extremities; no focal motor deficits and not confused Psychiatric A+Ox3, euthymic affect Discharge Data Allergies Allergy/AdvReac Type Severity Reaction Status Date / Time metformin Allergy Unknown does not Verified 02/26/21 07:38 remember pioglitazone Allergy Unknown ? NOT SURE Verified 02/26/21 07:38 rosiglitazone Allergy Unknown NOT SURE Verified 02/26/21 07:38 simvastatin Allergy Unknown "did not Verified 02/26/21 07:38 feel well while taking" ANGEL Inhibitors AdvReac Unknown Cough Verified 02/26/21 07:38 escitalopram AdvReac Unknown Unknown Verified 02/26/21 07:38 homatropine AdvReac Unknown Unknown Verified 02/26/21 07:38 [From Hycodan (with homatropin)] oxycodone AdvReac Unknown Nausea Verified 02/26/21 07:38 Imfafbk-Igj-Ctf Reductase AdvReac Unknown LEGS HURT Verified 02/26/21 07:38 Inhibitor CAT GUT SUTURES Allergy Unknown SLOW Uncoded 02/26/21 07:38 HEALING,INFLAMED TISSUE Consultations 02/26/21 13:32 Consult Nephrology Routine Procedures Performed Operation Date: 02/26/21 09:00 Actual Procedures p Left Distal Revascularization and Internal Ligation of Fistula Left Upper Extremity, [place] of Right Great Saphenous Vein - Juan Johnson MD Hospital Course (1) Steal syndrome as complication of dialysis access: Pt now POD #1 after LUE DRIL procedure and RLE GSV harvest. Doing well post op. Pt discussed with Dr Johnson. Will replace dressings and d/c pt home today. Total Time Total Time Spent Total Time Spent (In Minutes): 0 Discharge Plan Discharge Items Patient Disposition: Home - Home Health Services Reason For Visit: Steal Syndrome Left Arm Discharge Diagnosis: 1. s/p Left arm Distal Revascularization with Interval Ligation and Right thigh great saphenous vein harvest 2. Vascular Steal Syndrome of Left arm with gangrene Activity: Per Instructions section Lifting: No more than 5 pounds Non-emergency contact: Primary Care Provider Call non-emergency contact if: you have any medication questions, your pain is not controlled, your pain is concerning for you, you have a fever, your wound has increased redness, your wound has increased drainage and your wound pain has increased Follow-up/Referrals: Roderick Espino MD [Primary Care Provider] - Juan Johnson MD [Physician] - 03/13/21 2:00 pm (Follow up with Dr Johnson or Marina Gardiner PA-C, in 2 weeks for staple removal ) Diet: Dialysis Renal and Heart Healthy Addtl Attending Provider Instructions: ACTIVITY RECOMMENDATIONS: 1. May shower, but no soaking surgical wounds in water 2. Cleanse forearm open wound with saline daily and place telfa(nonstick) dressing on wound, then cover with 4x4 and loose, light layer kerlix or paper tape. 3. Stapled wounds only need daily light dressing of 4x4 and paper tape if draining. May stop dressing once dry. 4. NO CIRCUMFERENTIAL DRESSINGS TO LEFT ANTECUBITAL OR UPPER ARM. 5. May continue to dialyze through original AV fistula as usual. SPECIAL CARE INSTRUCTIONS: Call your doctor if: * Temperature above 101 degrees * Pain not relieved by pain medicine ordered * There is increased drainage or redness from any incision * You have any unanswered questions or concerns. Pending Studies at Discharge: No Stand-Alone Forms: My [facility] [employer] Oncology, Smoking Cessation Medications and DC Order Prescriptions: New hydrocodone-acetaminophen 5-325 mg Tablet 1 - 2 tab PO Q4H PRN (Reason: Pain) Qty: 30 RF: 0 Continued bumetanide 2 mg tablet 2 mg PO BID Qty: 180 RF: 1 Eliquis 5 mg tablet 2.5 mg PO BID Qty: 90 RF: 3 omeprazole 40 mg capsule,delayed release(DR/EC) 40 mg PO QAM Qty: 90 RF: 3 amoxicillin 500 mg capsule 500 mg PO DAILY 14 Days Qty: 14 RF: 0 doxycycline hyclate 100 mg tablet 100 mg PO bid 14 Days Qty: 28 RF: 0 lamotrigine [Lamictal] 25 mg tablet 25 mg PO BID Qty: 60 RF: 1 biotin 1 mg capsule 1 mg PO BID RF: 0 ProRenal 8 mg iron-800 mcg-1,000 unit tablet 2 tab PO QDD RF: 0 labetalol 200 mg tablet 200 mg PO UD RF: 0 Zyrtec 10 mg Tablet 10 mg PO QPM RF: 0 Probiotic 3 billion cell capsule 3,000 mmu cells PO BIDM RF: 0 cranberry 400 mg capsule 800 mg PO BID RF: 0 calcium acetate(phosphat bind) 667 mg capsule 667 mg PO BID RF: 0 Imodium A-D 2 mg capsule 2 mg PO UD PRN (Reason: Diarrhea) RF: 0 Trileptal 300 mg tablet 150 - 300 mg PO BID RF: 0 Aloe [place] Antifungal (micon) 2 % ointment 1 applic topical WK RF: 0 promethazine 25 mg tablet 25 mg PO UD PRN (Reason: nausea and vomiting on dialysis days) RF: 0 Santyl 250 unit/gram ointment 1 applic topical UD PRN (Reason: CHANGE OF WOUND VAC) RF: 0 PreserVision AREDS 14,320-226-200 sapa-ls-ncyz Capsule 1 cap PO BID RF: 0 Tylenol PM Extra Strength 25-500 mg Tablet 1 tab PO Q4H PRN (Reason: Pain) RF: 0 Discontinued hydrocodone-acetaminophen 5-325 mg tablet 1 tab PO UD PRN (Reason: Pain) RF: 0 Discharge Orders: Discharge Order (Routine); Ordered 02/27/21 Ordered By: Marina Gardiner Admission Data Admit Date/Time: 02/26/21 13:23 Attending Provider: Juan Johnson Admit Provider: Juan Johnson Primary Care Provider: Roderick Espino Other Providers: Mar Seymour ; Helder Sierra ; Tin Marrero ; Debbie Hopkins ; José Whitley ; [facility]
--- NOTE | 2021-02-27 14:30 | Surgery Progress Note ---
Date of Service February 27, 2021 Assessment & Plan (1) Steal syndrome as complication of dialysis access: Plan: Pt now POD #1 after LUE DRIL procedure and RLE GSV harvest. Doing well post op. Pt discussed with Dr Johnson. Will replace dressings and d/c pt home today. Admission and Anticipated Discharge Date Admission Date: February 26, 2021 Subjective 76 yo f POD #1 after LUE DRIL procedure and RLE GSV harvest, seen in f/u today. Pt states pain is present in R thigh incision, not much pain in arm. States pain in L hand is significantly improved since procedure. Denies N/V, SOB, chest pain, other complaints. Wound vac was changed by WOCN today. Review of Systems Review of Systems: Negative aside from HPI Physical Exam Constitutional: WD/WN, vitals as above + ill appearing (chronically), cooperative and comfortable; not in distress Respiratory: normal respiratory effort, lungs clear to auscultation Cardiovascular: Rate/Rhythm: regular rate and regular rhythm Vessels: radial pulses present (L radial palpable and dopplerable); + abnormal peripheral pulses Extremities: + AV fistula (+thrill/bruit); + abnormal capillary refill (L 3rd fingertip dry gangrene, hand warmer/pink, good cap refill) L arm brachial BPG palpable pulse. Gastrointestinal (Abdomen): Inspection/Auscultation: normal bowel sounds Percussion/Palpation: abdomen soft; abdomen nontender Skin: + wound (L forearm skin tears mild bleeding noted) and + incision (RLE noa mild ecchymosis/tender/bloody drainage. L arm C/D/I noa.) Neurologic: moves all extremities; no focal motor deficits and not confused Psychiatric: A+Ox3, euthymic affect Results & Data ([facility]) Vital Signs (Past 12 Hours) Vital Signs Temp Pulse Pulse Resp BP Pulse Ox 02/27/21 09:05 83 108/61 02/27/21 08:24 36.7 C 84 16 105/58 L 93 02/27/21 02:54 36.6 C 71 18 101/61 99
[2021-02-27] MEDS ORDERED: AMOXICILLIN 500 MG CAP PO SCH (17:00)
[2021-03-02] MEDS ORDERED: MICONAZOLE NITRATE POWDER 43 GM EXT SCH (09:00)
== END 2021-02-27 16:50 | disposition home health service (06) | DRG 252 ==
LOC: ASU 07:14 → 3E 13:23
DX: T82.898A Other specified complication of vascular prosthetic devices, implants and grafts, initial encounter; K21.9 Gastro-esophageal reflux disease without esophagitis; Z88.8 Allergy status to other drugs, medicaments and biological substances; Z88.5 Allergy status to narcotic agent; Z01.812 Encounter for preprocedural laboratory examination; Z79.01 Long term (current) use of anticoagulants; M10.9 Gout, unspecified; E11.22 Type 2 diabetes mellitus with diabetic chronic kidney disease; N18.6 End stage renal disease; I65.23 Occlusion and stenosis of bilateral carotid arteries; Z20.822 Contact with and (suspected) exposure to COVID-19; Z99.2 Dependence on renal dialysis; I96 Gangrene, not elsewhere classified; E11.21 Type 2 diabetes mellitus with diabetic nephropathy; E11.52 Type 2 diabetes mellitus with diabetic peripheral angiopathy with gangrene; Z91.048 Other nonmedicinal substance allergy status; Z79.899 Other long term (current) drug therapy; Y83.2 Surgical operation with anastomosis, bypass or graft as the cause of abnormal reaction of the patient, or of later complication, without mention of misadventure at the time of the procedure; I48.91 Unspecified atrial fibrillation; G50.0 Trigeminal neuralgia; E78.5 Hyperlipidemia, unspecified; I89.0 Lymphedema, not elsewhere classified; I27.20 Pulmonary hypertension, unspecified; I12.0 Hypertensive chronic kidney disease with stage 5 chronic kidney disease or end stage renal disease; G47.30 Sleep apnea, unspecified

== ENCOUNTER 2021-07-31 11:17 | Observation (INO) ==
--- NOTE | 2021-07-31 12:34 | CT Scan Report ---
CT head/brain wo con CLINICAL HISTORY: 76 years-old Female with fall. Acute head trauma status post fall TECHNIQUE: Multiple axial CT images of the head were obtained without contrast. A dose lowering tech nique was utilized adhering to the principles of ALARA. CT DOSE: 537.48 mGy.cm COMPARISON: Head CT 01/24/2020 FINDINGS: No acute intracranial hemorrhage, midline shift, intracranial mass, hydrocephalus, territorial ischem ia or abnormal extra-axial collection. Age-related involutional changes. White matter hypodensities s uggest chronic microvascular ischemic disease. The study is mildly motion degraded. Cerebral vascular calcifications. The calvarium is intact. Mastoid air cells are clear. Mild dorsal thickening of the right maxillary sinus. Metopic suture. Prior bilateral lens repair. Unremarkable soft tissues. IMPRESSION: No acute intracranial abnormality or calvarial fracture. ACT 112: Negative or not required by law. The above report was generated using voice recognition software. It may contain grammatical, syntax o r spelling errors. Electronically signed by: Diogenes Castellon M.D. 07/31/2021 12:33 PM
[2021-07-31 12:54] LABS: Basophils # (auto) 0.03 K/uL (0-0.2); Basophils % (auto) 0.7 %; Eosinophils # (auto) 0.08 K/uL (0-0.5); Eosinophils % (auto) 1.9 %; Hematocrit (blood only) 33.1 % (37-47); Hemoglobin 10.7 g/dL (12.0-16.0); Immature Granulocytes # (auto) 0.02 K/uL (0.00-0.02); Immature Granulocytes % (auto) 0.5 %; Lymphocytes # (auto) 0.67 K/uL (1.2-3.4); Lymphocytes % (auto) 15.7 %; Mean Corpuscular Hgb Conc 32.3 g/dL (32-36); Mean Corpuscular Volume 102.2 fL (80-100); Mean Platelet Volume 8.5 fL (7.4-10.4); Monocytes # (auto) 0.53 K/uL (0.11-0.59); Monocytes % (auto) 12.4 %; Neutrophils # (auto) 2.94 K/uL (1.4-6.5); Neutrophils % (auto) 68.8 %; Platelet Count 131 K/uL (130-400); RDW Standard Deviation 67.5 fL (36.4-46.3); Red Blood Count 3.24 M/uL (4.2-5.4); White Blood Count 4.27 K/uL (4.8-10.8)
--- NOTE | 2021-07-31 13:15 | XRay Report ---
XR chest 1V portable HISTORY: 76 years-old Female fall acute chest trauma status post COMPARISON: Chest radiograph 05/22/2020 TECHNIQUE: Supine AP view of the chest FINDINGS: Cardiac silhouette is enlarged. Calcified plaque of the thoracic aorta. The patient is rotated. Chron ic left shoulder deformity with absence of the left humeral head. Demineralized appearance the bones with degenerative changes of the shoulders and spine. IMPRESSION: Cardiomegaly without acute process. ACT 112: Negative or not required by law. The above report was generated using voice recognition software. It may contain grammatical, syntax o r spelling errors. Electronically signed by: Diogenes Castellon M.D. 07/31/2021 1:13 PM
--- NOTE | 2021-07-31 13:18 | XRay Report ---
LEFT ELBOW 3 VIEWS CLINICAL HISTORY: Left elbow pain. Fall. FINDINGS: 3 views of the left elbow are obtained. No prior studies are available for comparison at th e time of dictation. The Examination is degraded by inability to properly position the patient. The s keletal structures are heterogeneously osteopenic. Question a mildly angulated fracture of the radial neck with associated joint effusion. No additional findings are concerning for acute fracture. There is no evidence of dislocation. Surgical clips are noted in the antecubital fossa. Anterior soft tiss ue edema is suspected. There is advanced atherosclerotic calcification of the regional arteries. IMPRESSION: 1. Question a mildly angulated fracture of the radial neck with associated joint effusion. 2. No additional findings are suspicious for acute fracture. 3. Anterior soft tissue edema is noted. Electronically signed by: Bean Krishna M.D. 07/31/2021 1:17 PM
[2021-07-31 13:20] LABS: Albumin Level 3.1 gm/dl (3.4-5.0); BUN Creatinine Ratio 5.9 (10-20); Bilirubin,Total 0.4 mg/dl (0.2-1.0); Calcium 8.8 mg/dl (8.5-10.1); Creatinine Clr Calc Pharmacy 12.6 ml/min; Est GFR (African American) 15.3 ml/min; Est GFR (Non-African American) 13.2 ml/min; Globulin 3.2 gm/dl (2.5-4.0); Potassium 4.2 mmol/L (3.5-5.1); Total Protein 6.3 gm/dl (6.0-8.3)
[2021-07-31] MEDS ORDERED: STAT IV STA (13:24)
[2021-07-31] MEDS ORDERED: ONDANSETRON INJ 2 MG/ML 2 ML VIAL IV PRN (13:24)
[2021-07-31] MEDS ORDERED: ACETAMINOPHEN 325 MG TAB PO PRN (13:24)
[2021-07-31] MEDS ORDERED: EPINEPHrine INJ 1 MG/ML AMP IM PRN (13:24)
[2021-07-31] MEDS ORDERED: diphenhydrAMINE 50 MG/ML VIAL IV PRN (13:24)
[2021-07-31] MEDS ORDERED: methylPREDNISolone 125 MG/2 ML VIAL IV PRN (13:24)
--- NOTE | 2021-07-31 13:38 | XRay Report ---
XR shoulder RT min 2V routine CLINICAL HISTORY: Right shoulder pain. COMPARISON: Right shoulder radiograph January 23, 2020. FINDINGS: Severe degenerative changes of the right shoulder are noted with elevation of the right hu meral head. 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 This has develo ped since radiograph January 23, 2020. A 1.4 x 1.3 cm ossific fragment lateral to the humeral head is noted. A few small ossific/calcific densities are present. There is no definite acute fracture. Soft tissue swelling is present. IMPRESSION: 1. Severe degenerative changes of the right shoulder with elevation of the right humeral head consist ent with chronic rotator cuff tear. 2. No definite acute fracture. 3. Osteolysis of the distal right clavicle and the adjacent acromion with a few associated ossific fr agments, as described above. ACT 112: Negative or not required by law. Electronically signed by: Dayron Cardozo M.D. 07/31/2021 1:37 PM
[2021-07-31] MEDS ORDERED: 0.2 MICRON FILTER SET 1 EA IV ONE (13:39)
[2021-07-31] MEDS ORDERED: SODIUM CHLORIDE 0.9% 10ML FLUSH IV ONE (13:39)
[2021-07-31] MEDS ORDERED: SODIUM CHLORIDE 0.9% IV ONE (13:39)
[2021-07-31] MEDS ORDERED: SOTROVIMAB IV ONE (13:39)
--- NOTE | 2021-07-31 13:48 | XRay Report ---
SINGLE VIEW PELVIS; 3 VIEWS LEFT HIP CLINICAL HISTORY: Fall with left hip pain. FINDINGS: An AP view of the pelvis with AP, frog-leg, and crosstable lateral views of the left hip an d femur are compared to study dated 11/08/2018. The skeletal structures are osteopenic. The skeletal st ructures are osteopenic. Suspect a nondisplaced fracture through the left acetabulum at the junction with the superior pubic ramus. No additional fracture is clearly seen involving the hips or bony pelv is. Intertrochanteric and intramedullary nails are present in the left proximal femur. A left knee ar throplasty is in place. There is advanced atherosclerotic calcification of the femoral arteries. Lumb osacral spondylosis is partially visualized. No bowel obstruction is seen. There are numerous pelvic phleboliths. IMPRESSION: 1. Suspect a nondisplaced left acetabular fracture as above. Correlate with CT. 2. No additional fracture is seen involving the hips or bony pelvis. 3. Postoperative change of the left femur as above. Electronically signed by: Bean Krishna M.D. 07/31/2021 1:47 PM
--- NOTE | 2021-07-31 13:49 | XRay Report ---
XR toe(s) RT min 2V CLINICAL HISTORY: Right fourth toe pain. COMPARISON STUDY: Right forefoot MRI 06/17/2021. FINDINGS: The bones are osteopenic. Soft tissue swelling within the fourth toe. The head and shaft of the right fourth toe proximal phalanx are not identified. This area is also partially obscured by th e overlapping fifth toe. This could be due to prior resection or destruction the setting of osteomyel itis. IMPRESSION: The head and shaft of the right fourth toe proximal phalanx are not identified. This cou ld be due to prior resection or bony destruction in the setting of osteomyelitis. ACT 112: Negative or not required by law. Electronically signed by: Marko Wooten M.D. 07/31/2021 1:48 PM
[2021-07-31] MEDS ORDERED: MoRPHine SULFATE 4 MG/ML 1 ML CARP\\VIAL IV STA (14:34)
--- NOTE | 2021-07-31 14:47 | CT Scan Report ---
CT pelvis wo con HISTORY: 76 years-old Female fall left hip pain acute left-sided hip and pelvic pain status post fal l COMPARISON: Pelvis and hip radiographs of same day, CT abdomen pelvis 07/07/2018. TECHNIQUE: Multiple axial CT images of the pelvis were obtained without the use of IV contrast. A dos e lowering technique was used consistent with the principals of KELLY. FINDINGS: There is an acute mildly displaced fracture involving the left inferior pubic ramus with minimal comm inution. Chronic fracture deformity of the right inferior pubic ramus. There is a subtle acute nondis placed fracture at the left superior pubic ramus and acetabular junction as seen on image 151 of seri es 2 correlating with the radiographic finding. There is subtle angulation involving the mid S3 segme nt on image 33 of series 201 which is new from prior. Severe degenerative changes of the imaged lumba r spine. No definite additional acute fracture or subluxation. Moderate osteoarthritis of the hips. S ubtle right femoral head avascular necrosis suggestive on image 33 of the coronal series. Intratrocha nteric nail with medullary dhaval of the left femur. No evidence of hardware complication. Vascular calcifications of the atrophic uterus. Moderate fecal retention. Partially imaged 2.9 cm hyp odense lesion of the inferior pole right kidney suggestive of a cyst. Urinary bladder wall thickening with perivesicular stranding and partial collapse. Atrophy of the pelvic musculature. Extensive vasc ular calcifications. Mild right inguinal chain adenopathy. IMPRESSION: 1. Acute mildly displaced fracture of the left inferior pubic ramus. 2. Confirmation of the subtle acute nondisplaced fracture involving the left superior pubic ramus and acetabular junction. 3. Healed chronic fracture deformity of the right inferior pubic ramus. 4. Mild angulation of the S3 segment is new from prior suspicious for an additional acute fracture. 5. 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 ACT 112: Negative or not required by law. The above report was generated using voice recognition software. It may contain grammatical, syntax o r spelling errors. Electronically signed by: Diogenes Castellon M.D. 07/31/2021 2:46 PM
--- NOTE | 2021-07-31 15:15 | Emergency Department Note ---
Impression & Plan Closed pelvic fracture, Acetabular fracture, Fracture of head of radius, COVID- 19 ED Provider Note NAME: KEVIN JEWELL AGE: 76 SEX: F : 1945 ARRIVES VIA: Ambulance INFORMANT: Patient ED PROVIDER(S): Aroldo Song DO CHIEF COMPLAINT: fall hip pain HPI: Patient is a 76-year-old female with a past medical history of renal failure, dialysis dependent Wednesday, CHF, hyperlipidemia, seizure disorder, cirrhosis, diabetes who presents the ER following a fall this past Wednesday. Patient is wheelchair dependent. She was trying to reach to get something out of her wheelchair and fell down onto her bottom. She is having left hip pain. She did hit her right shoulder. She does take apixaban. She denies hitting her head. No head or neck pain. No chest pain or shortness of breath. She denies any cough or congestion. No belly pain. She does not make any urine. ROS: See above HPI for pertinent positives & negatives. A total of 10 systems reviewed and were otherwise negative. PAST MEDICAL HISTORY:See Below PAST SURGICAL HISTORY:See Below FAMILY HISTORY:See Below SOCIAL HISTORY:See Below HOME MEDICATIONS:See Below ALLERGIES:See Below VITALS:See Below PHYSICAL EXAMINATION: GENERAL: alert, chronically ill-appearing, disheveled, nontoxic HEAD: normal cephalic, atraumatic EYE EXAM: normal conjunctiva, PERRL and EOM's grossly intact OROPHARYNX: Mask in place NECK: supple, no nuchal rigidity, no adenopathy, non-tender CHEST: stable to compression anteriorly and posteriorly LUNGS: clear to auscultation. Normal chest wall mechanics HEART: no murmurs, S1 normal and S2 normal ABDOMEN: abdomen soft, non-tender, normo-active bowel sounds, no masses, no rebound or guarding. PELVIS: stable to compression anteriorly and posteriorly BACK: Back is symmetrical on inspection and there is no deformity, no midline tenderness, no CVA tenderness. UPPER EXTREMITIES: Bruising over the right humeral head. Flexion extension of the right shoulder elbow wrist grasp and abduction intact. No tenderness on palpation throughout the entire right upper extremity. Pain with movement of the left humerus/old per patient. No tenderness on palpation of humerus. Tenderness over the elbow with small abrasions over the olecranon. No tendernes s throughout the mid or distal forearm. No tenderness throughout the left hand or fingers. Fistula in place in left arm with positive thrill and bruit LOWER EXTREMITIES: full active and passive range of motion of all joints without tenderness to palpation. Right fourth toe with necrosis over the top of the digit and exposed tissue NEURO EXAM: Normal sensorium, cranial nerves II-XII grossly intact, normal speech. GCS: 15. MEDICAL DECISION MAKING: Patient is a 76-year-old dialysis dependent female that presents the ER following a fall on Wednesday for left hip pain. She has been struggling managing at home. She is wheelchair dependent. IV was established blood work was obtained. Labs show mild leukocytosis at 4.2. Hemoglobin at 10.7 which is consistent with previous and slightly higher. BMP with a creatinine of 3.2 consistent with dialysis dependence. Glucose slightly low at 68. LFTs bilirubin were unremarkable. Lipase is unremarkable. Patient is Covid positive. She was given something to eat orally. CT head was negative. Chest x-ray as well as x-ray of the pelvis and left hip showed a questionable pelvic fracture/acetabular fracture. CT was obtained which confirmed nondisplaced acetabular fracture as well as a pelvic fracture. Patient is already not weightbearing. She is Covid positive. Discussed with not any nephrology as she will need to be dialyzed tomorrow for her typical Wednesday. Initially ordered monoclonal's as the thought was that she was going home. Medication was mixed and x-rays of the pelvis were read by radiologist and showed questionable fracture. CT later confirmed fractures. As medication was already admixed and she is being admitted to the hospital for reasons other than Covid discussed with pharmacist Jyothi and instead of wasting the medication we followed the EUA after I had already discussed with the patient and she was agreeable and patient was given monoclonal's while in the ER awaiting admission for a fall no left acetabular fracture which was nondisplaced as well as the pubic ring fracture and nonweightbearing patient. Shalini/w [facility] for further evaluation. She was given IV morphine while in the ER. Called ortho but did not hear back. She follows with [facility] ortho. Triage Nursing notes reviewed. Limited review of prior medical records performed Vital Signs: reviewed and remarkable for no significant abnormalities Differential diagnosis: Differential diagnoses include major intracranial, cervical, spinal, thoracic, abdominal, pelvic and neurologic injury. Fracture, contusion, sprain, strain, laceration, abrasions included as well. ER treatment provided: See below Diagnostics interpreted by me: ECG: none Cardiac Monitoring: An order was placed for continuous cardiac monitoring. The monitor shows a rate of 82 with sinus rhythm. Laboratory studies: As stated above and show below. Imaging studies: CT head and pelvis show nondisplaced acetabular fracture with pelvic rami fracture. X-rays of the right humerus as well as left elbow show a radial head fracture Consultation(s): Discussed with nephrology as she will likely need dialysis tomorrow Discussed with [facility] for further evaluation Procedures: none Critical Care: None Past Med/Surg History Medical History (Updated 07/31/21 @ 15:27 by Aroldo Song DO) Anemia Chronic- Hgb 8.2-10.0 for past year Asymptomatic bilateral carotid artery stenosis Atherosclerosis without hemodynamically significant stenosis in the carotid arteries per 06/09/18 carotid doppler Atrial fibrillation On Eliquis- no cardioversion, follows with PCP. PT REPORTS HX AFIB ONE TIME WHILE IN HOSPITAL FOLLOWS DR HARPER Broken arm [id number] SURGERY, states she can not have it fixed due to fistula C. difficile colitis hx (2019) does have chronic diarrhea (r/t removal of gallbladder, per pt). Chronic pain Cirrhosis of liver Diabetes Hx of Type 2 IDDM -- no medications currently since placed on diaylsis. 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 Usually stable on Lamictal and oxcarbazepine. 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 Family History Daughter Breast cancer Unknown Emphysema, unspecified Family/Other Family history of diabetes mellitus NEPHEW Other Family history non-contributory No family history of adverse response to anesthesia Social History Smoking Status: Never smoker Second Hand Exposure: No; Hx Alcohol Use: No Hx Substance Use: No Preferred Language: Greenlandic Communication Ability: Effective Visual Impairment: No Limitations Sand Caster Required: No Beliefs That Will Affect Care: None marital status: Current Living Situation: Spouse current occupational status: retired How many Children do You have: 2 Feels Safe at Home: Yes caffeine: Yes Seatbelt Use: always Assistive Devices: Slide Board and Wheelchair Allergies Allergies Allergy/AdvReac Type Severity Reaction Status Date / Time metformin Allergy Unknown does not Verified 07/31/21 15:07 remember pioglitazone Allergy Unknown ? NOT SURE Verified 07/31/21 15:07 rosiglitazone Allergy Unknown NOT SURE Verified 07/31/21 15:07 simvastatin Allergy Unknown "did not Verified 07/31/21 15:07 feel well while taking" ANGEL Inhibitors AdvReac Mild Cough Verified 07/31/21 15:07 oxycodone AdvReac Mild Nausea Verified 07/31/21 15:07 [id number] Reductase AdvReac Mild LEGS HURT Verified 07/31/21 15:07 Inhibitor [Knzfrdl-Lfw-Mbn Reductase Inhibitor] suture AdvReac Mild Catgut - Verified 07/31/21 15:07 slow healing, inflammed tissue escitalopram AdvReac Unknown Unknown Verified 07/31/21 15:07 homatropine AdvReac Unknown Unknown Verified 07/31/21 15:07 [From [facility] (with homatropin)] Home Meds Home Medications Medication Instructions Recorded Confirmed cetirizine 10 mg tablet (Zyrtec) 10 mg PO QPM 07/07/18 07/31/21 vit B complx, C-iron 8 mg-folic 2 tab PO QDD 12/19/18 07/31/21 acid 800 mcg-D3 1,000 unit-zinc tablet (ProRenal) biotin 1 mg capsule 1 mg PO BID cap 02/01/19 07/31/21 lactobacillus combination no.4 3 3,000 mmu cells PO BIDM cap 02/01/19 07/31/21 billion cell capsule (Probiotic) calcium acetate(phosphat bind) 667 667 mg PO BID cap 03/12/20 07/31/21 mg capsule vitamins A,C,O-tbae-ivyggm 14,320 1 cap PO BID 10/10/20 07/31/21 unit-226 mg-200 unit capsule (PreserVision AREDS) diphenhydramine 25 1 tab PO HS 02/04/21 07/31/21 mg-acetaminophen 500 mg tablet (Tylenol PM Extra Strength) loperamide 2 mg capsule (Imodium 2 mg PO UD PRN 02/21/21 07/31/21 A-D) aloe vera 1 applic TOPICAL WK 05/08/21 07/31/21 promethazine 25 mg tablet 25 mg PO UD PRN 05/08/21 07/31/21 Previous Rx's Medication Instructions Recorded bumetanide 2 mg tablet 2 mg PO BID #180 tab 06/11/20 omeprazole 40 mg capsule,delayed 40 mg PO QAM #90 cap 10/11/20 release labetalol 200 mg tablet See Rx Instructions .ROUTE 05/09/21 .COMPLEX #230 tablet lamotrigine 25 mg tablet (Lamictal) 25 mg PO BID #60 tab 07/03/21 oxcarbazepine 300 mg tablet 150 - 300 mg PO .COMPLEX 30 Days 07/03/21 (Trileptal) #45 tab hydrocodone 5 mg-acetaminophen 325 1 tab PO TID #90 tab 07/14/21 mg tablet apixaban 2.5 mg tablet 2.5 mg PO BID #90 tab 07/31/21 Results & Data (ED) Vital Signs Vital Signs - 24 hr 07/31/21 11:21 07/31/21 12:01 07/31/21 14:00 Temperature 37.6 C H Temperature Source Oral Pulse Rate 73 92 H Pulse Rate [Left Radial] 92 H 86 Pulse Rhythm Regular Regular Pulse Rhythm [Left Radial] Regular Regular Pulse Strength Normal Pulse Strength [Left Radial] Normal Normal Respiratory Rate 20 20 12 Respiratory Effort / Characteristics Non-Labored Non-Labored Non-Labored Respiratory Depth Normal Normal Normal Respiratory Pattern Regular Regular Regular Blood Pressure 135/57 L Blood Pressure [Left Arm] 136/67 Blood Pressure Mean 83 Blood Pressure Mean [Left Arm] 90 Blood Pressure Position Lying Blood Pressure Position [Left Arm] Lying Pulse Oximetry 97 92 95 Oxygen Delivery Method Room Air Room Air Sepsis Recent Fever Within 48 Hours No Sepsis New/Unexplained Change in Mental Status No Sepsis Action Taken by Nursing No Action Required Laboratory Data Result diagrams: 07/31/21 12:38 07/31/21 12:38 Lab Results 07/31/21 07/31/21 07/31/21 Range/Units 12:34 12:38 12:38 WBC 4.27 L (4.8-10.8) K/uL RBC 3.24 L (4.2-5.4) M/uL Hgb 10.7 L (12.0-16.0) g/dL Hct 33.1 L (37-47) % MCV 102.2 H (80-100) fL MCH 33.0 (25-34) pg MCHC 32.3 (32-36) g/dL RDW Std Deviation 67.5 H (36.4-46.3) fL RDW Coeff of Alejandra 18.0 H (11.5-14.5) % Plt Count 131 (130-400) K/uL MPV 8.5 (7.4-10.4) fL Immature Gran % (Auto) 0.5 % Neut % (Auto) 68.8 % Lymph % (Auto) 15.7 % [place] % (Auto) 12.4 % Eos % (Auto) 1.9 % Baso % (Auto) 0.7 % Neut # (Auto) 2.94 (1.4-6.5) K/uL Lymph # (Auto) 0.67 L (1.2-3.4) K/uL Sanborn # (Auto) 0.53 (0.11-0.59) K/uL Eos # (Auto) 0.08 (0-0.5) K/uL Baso # (Auto) 0.03 (0-0.2) K/uL Immature Gran # (Auto) 0.02 (0.00-0.02) K/uL Sodium 136 (136-145) mmol/L Potassium 4.2 (3.5-5.1) mmol/L Chloride 98 (98-107) mmol/L Carbon Dioxide 27 (21-32) mmol/L Anion Gap 11 (3-11) BUN 19 (6-23) mg/dl Creatinine 3.21 H (0.6-1.2) mg/dl Est Cr Clr Drug Dosing 12.6 ml/min Est GFR ( Amer) 15.3 ml/min Est GFR (Non-Af Amer) 13.2 ml/min BUN/Creatinine Ratio 5.9 L (10-20) Glucose 68 L (70-99(Fasting)) mg/dl Calcium 8.8 (8.5-10.1) mg/dl Total Bilirubin 0.4 (0.2-1.0) mg/dl AST 25 (13-39) U/L ALT 18 (7-52) U/L Alkaline Phosphatase 173 H (34-104) U/L Total Protein 6.3 (6.0-8.3) gm/dl Albumin 3.1 L (3.4-5.0) gm/dl Globulin 3.2 (2.5-4.0) gm/dl Albumin/Globulin Ratio 1.0 (0.9-2) Lipase 9 L (11-82) U/L SARS-CoV-2, RNA, NAAT POSITIVE A* (NEGATIVE) Administered Medications Discontinued Medications Sotrovimab 500 mg/ Sodium (Chloride) 108 mls @ 216 mls/hr IV NOW ONE; Protocol Stop: 07/31/21 14:08 Last Infusion: 07/31/21 14:58 Dose: 0 mls/hr Documented by: [id number] Admin: 07/31/21 14:23 Dose: 216 mls/hr Documented by: [id number] Miscellaneous (Stat Iv) 1 ea N/A NOW STA Stop: 07/31/21 13:25 Last Admin: 07/31/21 14:25 Dose: Not Given Documented by: [id number] Morphine Sulfate (Morphine Sulfate 4 Mg/Ml 1 Ml Carp\\Vial) 4 mg IV NOW STA Stop: 07/31/21 14:35 Last Admin: 07/31/21 14:42 Dose: 4 mg Documented by: [id number] Sodium Chloride (Sodium Chloride 0.9% 10ml Flush) 30 ml IV ONCE ONE Stop: 07/31/21 13:40 Last Admin: 07/31/21 14:42 Dose: 30 ml Documented by: [id number] Imaging Data Radiologist's Impression: Chest X-Ray 07/31/21 12:01 XR chest 1V portable HISTORY: 76 years-old Female fall acute chest trauma status post COMPARISON: Chest radiograph 05/22/2020 TECHNIQUE: Supine AP view of the chest FINDINGS: Cardiac silhouette is enlarged. Calcified plaque of the thoracic aorta. The patient is rotated. Chronic left shoulder deformity with absence of the left humeral head. Demineralized appearance the bones with degenerative changes of the shoulders and spine. IMPRESSION: Cardiomegaly without acute process. ACT 112: Negative or not required by law. The above report was generated using voice recognition software. It may contain grammatical, syntax or spelling errors. Electronically signed by: Diogenes Castellon M.D. 07/31/2021 1:13 PM Elbow X-Ray 07/31/21 12:01 LEFT ELBOW 3 VIEWS CLINICAL HISTORY: Left elbow pain. Fall. FINDINGS: 3 views of the left elbow are obtained. No prior studies are available for comparison at the time of dictation. The Examination is degraded by inability to properly position the patient. The skeletal structures are heterogeneously osteopenic. Question a mildly angulated fracture of the radial neck with associated joint effusion. No additional findings are concerning for acute fracture. There is no evidence of dislocation. Surgical clips are noted in the antecubital fossa. Anterior soft tissue edema is suspected. There is advanced atherosclerotic calcification of the regional arteries. IMPRESSION: 1. Question a mildly angulated fracture of the radial neck with associated joint effusion. 2. No additional findings are suspicious for acute fracture. 3. Anterior soft tissue edema is noted. Electronically signed by: Bean Krishna M.D. 07/31/2021 1:17 PM Hip/Pelvis X-Ray 07/31/21 12:01 SINGLE VIEW PELVIS; 3 VIEWS LEFT HIP CLINICAL HISTORY: Fall with left hip pain. FINDINGS: An AP view of the pelvis with AP, frog-leg, and crosstable lateral views of the left hip and femur are compared to study dated 11/08/2018. The skeletal structures are osteopenic. The skeletal structures are osteopenic. Suspect a nondisplaced fracture through the left acetabulum at the junction with the superior pubic ramus. No additional fracture is clearly seen involving the hips or bony pelvis. Intertrochanteric and intramedullary nails are present in the left proximal femur. A left knee arthroplasty is in place. There is advanced atherosclerotic calcification of the femoral arteries. Lumbosacral spondylosis is partially visualized. No bowel obstruction is seen. There are numerous pelvic phleboliths. IMPRESSION: 1. Suspect a nondisplaced left acetabular fracture as above. Correlate with CT. 2. No additional fracture is seen involving the hips or bony pelvis. 3. Postoperative change of the left femur as above. Electronically signed by: Bean Krishna M.D. 07/31/2021 1:47 PM Shoulder X-Ray 07/31/21 12:01 XR shoulder RT min 2V routine CLINICAL HISTORY: Right shoulder pain. COMPARISON: Right shoulder radiograph January 23, 2020. FINDINGS: Severe degenerative changes of the right shoulder are noted with elevation of the right humeral head. 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 This has developed since radiograph January 23, 2020. A 1.4 x 1.3 cm ossific fragment lateral to the humeral head is noted. A few small ossific/calcific densities are present. There is no definite acute fracture. Soft tissue swelling is present. IMPRESSION: 1. Severe degenerative changes of the right shoulder with elevation of the right humeral head consistent with chronic rotator cuff tear. 2. No definite acute fracture. 3. Osteolysis of the distal right clavicle and the adjacent acromion with a few associated ossific fragments, as described above. ACT 112: Negative or not required by law. Electronically signed by: Dayron Cardozo M.D. 07/31/2021 1:37 PM Toe X-Ray 07/31/21 12:02 XR toe(s) RT min 2V CLINICAL HISTORY: Right fourth toe pain. COMPARISON STUDY: Right forefoot MRI 06/17/2021. FINDINGS: The bones are osteopenic. Soft tissue swelling within the fourth toe. The head and shaft of the right fourth toe proximal phalanx are not identified. This area is also partially obscured by the overlapping fifth toe. This could be due to prior resection or destruction the setting of osteomyelitis. IMPRESSION: The head and shaft of the right fourth toe proximal phalanx are not identified. This could be due to prior resection or bony destruction in the setting of osteomyelitis. ACT 112: Negative or not required by law. Electronically signed by: Marko Wooten M.D. 07/31/2021 1:[address] 07/31/21 12:03 CT head/brain wo con CLINICAL HISTORY: 76 years-old Female with fall. Acute head trauma status post fall TECHNIQUE: Multiple axial CT images of the head were obtained without contrast. A dose lowering technique was utilized adhering to the principles of ALARA. CT DOSE: 537.48 mGy.cm COMPARISON: Head CT 01/24/2020 FINDINGS: No acute intracranial hemorrhage, midline shift, intracranial mass, hydrocephalus, territorial ischemia or abnormal extra-axial collection. Age- related involutional changes. White matter hypodensities suggest chronic microvascular ischemic disease. The study is mildly motion degraded. Cerebral vascular calcifications. The calvarium is intact. Mastoid air cells are clear. Mild dorsal thickening of the right maxillary sinus. Metopic suture. Prior bilateral lens repair. Unremarkable soft tissues. IMPRESSION: No acute intracranial abnormality or calvarial fracture. ACT 112: Negative or not required by law. The above report was generated using voice recognition software. It may contain grammatical, syntax or spelling errors. Electronically signed by: Diogenes Castellon M.D. 07/31/2021 12:[address] 07/31/21 13:54 CT pelvis wo con HISTORY: 76 years-old Female fall left hip pain acute left-sided hip and pelvic pain status post fall COMPARISON: Pelvis and hip radiographs of same day, CT abdomen pelvis 07/07/2018. TECHNIQUE: Multiple axial CT images of the pelvis were obtained without the use of IV contrast. A dose lowering technique was used consistent with the princip als of ALARA. FINDINGS: There is an acute mildly displaced fracture involving the left inferior pubic ramus with minimal comminution. Chronic fracture deformity of the right inferior pubic ramus. There is a subtle acute nondisplaced fracture at the left superior pubic ramus and acetabular junction as seen on image 151 of series 2 correlating with the radiographic finding. There is subtle angulation involving the mid S3 segment on image 33 of series 201 which is new from prior. Severe degenerative changes of the imaged lumbar spine. No definite additional acute fracture or subluxation. Moderate osteoarthritis of the hips. Subtle right femoral head avascular necrosis suggestive on image 33 of the coronal series. Intratrochanteric nail with medullary dhaval of the left femur. No evidence of hardware complication. Vascular calcifications of the atrophic uterus. Moderate fecal retention. Partially imaged 2.9 cm hypodense lesion of the inferior pole right kidney suggestive of a cyst. Urinary bladder wall thickening with perivesicular stranding and partial collapse. Atrophy of the pelvic musculature. Extensive vascular calcifications. Mild right inguinal chain adenopathy. IMPRESSION: 1. Acute mildly displaced fracture of the left inferior pubic ramus. 2. Confirmation of the subtle acute nondisplaced fracture involving the left superior pubic ramus and acetabular junction. 3. Healed chronic fracture deformity of the right inferior pubic ramus. 4. Mild angulation of the S3 segment is new from prior suspicious for an additional acute fracture. 5. 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 ACT 112: Negative or not required by law. The above report was generated using voice recognition software. It may contain grammatical, syntax or spelling errors. Electronically signed by: Diogenes Castellon M.D. 07/31/2021 2:46 PM Discharge Plan Visit Data Chief Complaint: Fall Stated Complaint: REFERRED BY DOCTOR FOR EVAL. ED Provider: Aroldo Song Discharge Problem: Closed pelvic fracture, Acetabular fracture, Fracture of head of radius, COVID- 19 Forms Stand Alone Forms: [facility] Prescriptions Prescriptions: No Action bumetanide 2 mg tablet 2 mg PO BID Qty: 180 RF: 1 omeprazole 40 mg capsule,delayed release(DR/EC) 40 mg PO QAM Qty: 90 RF: 3 labetalol 200 mg tablet See Rx Instructions .ROUTE .COMPLEX Qty: 230 RF: 2 hydrocodone-acetaminophen 5-325 mg tablet 1 tab PO TID Qty: 90 RF: 0 apixaban 2.5 mg tablet 2.5 mg PO BID Qty: 90 RF: 3 lamotrigine [Lamictal] 25 mg tablet 25 mg PO BID Qty: 60 RF: 11 Trileptal 300 mg tablet 150 - 300 mg PO .COMPLEX 30 Days Qty: 45 RF: 11 biotin 1 mg capsule 1 mg PO BID RF: 0 ProRenal 8 mg iron-800 mcg-1,000 unit tablet 2 tab PO QDD RF: 0 cetirizine [Zyrtec] 10 mg Tablet 10 mg PO QPM RF: 0 Probiotic 3 billion cell capsule 3,000 mmu cells PO BIDM RF: 0 calcium acetate(phosphat bind) 667 mg capsule 667 mg PO BID RF: 0 loperamide [Imodium A-D] 2 mg capsule 2 mg PO UD PRN (Reason: Diarrhea) RF: 0 aloe vera Gel 1 applic TOPICAL WK RF: 0 promethazine 25 mg tablet 25 mg PO UD PRN (Reason: Nausea) RF: 0 PreserVision AREDS [id number] Capsule 1 cap PO BID RF: 0 diphenhydramine-acetaminophen [Tylenol PM Extra Strength] 25-500 mg Tablet 1 tab PO HS RF: 0 Referrals Referrals: Roderick Espino MD [Primary Care Provider] - Discharge Problem: Closed pelvic fracture Qualifiers: Encounter type: initial encounter Pelvic bone location: unspecified part of pelvis Acetabular fracture Qualifiers: Encounter type: initial encounter Sublocation of acetabulum: unspecified portion of acetabulum Fracture type: closed Fracture alignment: nondisplaced Laterality: left Qualified Code(s): S32.402A - Unspecified fracture of left acetabulum, initial encounter for closed fracture Fracture of head of radius Qualifiers: Encounter type: initial encounter Fracture type: closed Fracture alignment: nondisplaced Laterality: left Qualified Code(s): S52.125A - Nondisplaced fracture of head of left radius, initial encounter for closed fracture
--- NOTE | 2021-07-31 15:51 | History & Physical Report ---
Date of Service July 31, 2021 Assessment & Plan (1) Closed pelvic fracture: Plan: S/P fall - 1. Acute mildly displaced fracture of the left inferior pubic ramus. 2. Confirmation of the subtle acute nondisplaced fracture involving the left superior pubic ramus and acetabular junction - Apprecieate orthopaedics consultation - Pain control - Percocet and hydromorphone - PT evaluation - Evaluation for rehab likely needed- case managment consult placed (2) Acetabular fracture: Plan: As above (3) Fracture of head of radius: Plan: Sling applied in the EMD - Appreciate orthopaedics assistance - Patient has broken left arm in 2018 with reduced ROM (4) COVID-19: Plan: Unsure of day of illness - Lives at home with - she notified him - Fatigue only symptom presently - Continue her ELiquis for VTE - SPO2 on RA 96% - Follow clinically - currently not a candidate for other therapeutics (5) ESRD (end stage renal disease) on dialysis: Plan: Continue dialysis MWF - Nephrology consulted- appreciate assistance - COVID positive - Continue renal caps and phosphate binder - Labetalol continued - Bumex 1mg BID continue for now follow fluid volume and renal indices (6) Atrial fibrillation: Plan: Rate controlled - Continue Eliquis (7) Open wound of right great toe: Plan: Wound of right toe with CONS in May Patient did have MRIs of both feet. There is no evidence of osteomyelitis or abscess in the left foot Jun 28- and without any + cultures since - wound care consult placed - Continue with Betadine painting to open areas and Aqua cell AG Multiple previous cultures of left foot: with Staph, CONS, corynebacteria- Continue with Xeroform No evidence of purulence or surrounding cellulitis of any of her wounds- no ABX therapy at this time- (8) Necrotic ulceration of fingers: Plan: Follows with wound care and awaiting amputation - pending AV fistula repair - Wound care consultation appreciated (9) Trigeminal neuralgia: Plan: Continue Lamotrigine Continue Trilleptal History of Present Illness Primary Care Provider: Roderick Espino MD 76 YOF with past medical history of: ESRD on dialysis (MWF), osteomyelitis, chronic lower foot wound, amputation of right metatarsal, wheel chair bound, AFIB( on Apixaban), trigeminal neuralgia, HTN, GERD, LVH, Broken left arm, right shoulder rotator cuff injury. Patient comes to the [facility] today s/p falling off the edge of her wheelchair on to her buttocks. 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 The chair rolled back and she fell. Patient was also subsequently found to have COVID 19, she received dose of monoclonals in [facility]. She had multiple imaging modalities performed for her fall. 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 She was given morphine for her pain control and is comfortable at this time. She is relatively asymptomatic from her COVID except noting some increase in fatigue starting yesterday. The patient lives at home with her and her primary tool for getting her up from bed to chair is a Skye lift. She is followed closely by vascular and wound care for her lower extremity ulcerations. She had wound culture of the right toe performed in [facility] that was negative for gram stain and previous was cultured for CONS in May and her left foot was noted group B beta strep. She has not been on antibiotics for this and did have vascular consultation performed and is pending follow up with podiatry for possible amputation. As she has broken her left arm prior and has reduced function and stephanieley will have right arm in sling, and with her pubic ramus fracture, she will likely need rehab and/or home health to assist with her progression. She will think about rehab options but would really like to go home with PT if an option. Will admit- orthopaedics consultation for further evaluation/management. Pain control. She meets no further criteria for COVID treatment. Follow her oxygenation levels and inflammatory markers. She gets Dialysis on F. Nephrology has been consulted. She has had her COVID vaccine and booster; her COVID Test on admission is: Positive Allergies Allergy/AdvReac Type Severity Reaction Status Date / Time metformin Allergy Unknown does not Verified 07/31/21 15:07 remember pioglitazone Allergy Unknown ? NOT SURE Verified 07/31/21 15:07 rosiglitazone Allergy Unknown NOT SURE Verified 07/31/21 15:07 simvastatin Allergy Unknown "did not Verified 07/31/21 15:07 feel well while taking" ANGEL Inhibitors AdvReac Mild Cough Verified 07/31/21 15:07 oxycodone AdvReac Mild Nausea Verified 07/31/21 15:07 Bdxcpdr-YOS-ZjY Reductase AdvReac Mild LEGS HURT Verified 07/31/21 15:07 Inhibitor [Yqtzziv-Fgd-Rhj Reductase Inhibitor] suture AdvReac Mild Catgut - Verified 07/31/21 15:07 slow healing, inflammed tissue escitalopram AdvReac Unknown Unknown Verified 07/31/21 15:07 homatropine AdvReac Unknown Unknown Verified 07/31/21 15:07 [From Cyveran (with homatropin)] Home Medications Medication Instructions Recorded Confirmed Type cetirizine 10 mg tablet (Zyrtec) 10 mg PO QPM 07/07/18 07/31/21 History vit B complx, C-iron 8 mg-folic 2 tab PO QDD 12/19/18 07/31/21 History acid 800 mcg-D3 1,000 unit-zinc tablet (ProRenal) biotin 1 mg capsule 1 mg PO BID cap 02/01/19 07/31/21 History lactobacillus combination no.4 3 3,000 mmu cells PO BIDM cap 02/01/19 07/31/21 History billion cell capsule (Probiotic) calcium acetate(phosphat bind) 667 667 mg PO BID cap 03/12/20 07/31/21 History mg capsule bumetanide 2 mg tablet 2 mg PO BID #180 tab 06/11/20 07/31/21 Rx vitamins A,C,J-qamc-etvlkm 14,320 1 cap PO BID 10/10/20 07/31/21 History unit-226 mg-200 unit capsule (PreserVision AREDS) omeprazole 40 mg capsule,delayed 40 mg PO QAM #90 cap 10/11/20 07/31/21 Rx release diphenhydramine 25 1 tab PO HS 02/04/21 07/31/21 History mg-acetaminophen 500 mg tablet (Tylenol PM Extra Strength) loperamide 2 mg capsule (Imodium 2 mg PO UD PRN 02/21/21 07/31/21 History A-D) aloe vera 1 applic TOPICAL WK 05/08/21 07/31/21 History promethazine 25 mg tablet 25 mg PO UD PRN 05/08/21 07/31/21 History labetalol 200 mg tablet See Rx Instructions .ROUTE 05/09/21 07/31/21 Rx .COMPLEX #230 tablet lamotrigine 25 mg tablet (Lamictal) 25 mg PO BID #60 tab 07/03/21 07/31/21 Rx oxcarbazepine 300 mg tablet 150 - 300 mg PO .COMPLEX 30 Days 07/03/21 07/31/21 Rx (Trileptal) #45 tab hydrocodone 5 mg-acetaminophen 325 1 tab PO TID #90 tab 07/14/21 07/31/21 Rx mg tablet apixaban 2.5 mg tablet 2.5 mg PO BID #90 tab 07/31/21 07/31/21 Rx Past Med/Surg History Medical History (Updated 07/31/21 @ 16:49 by ALONDRA Carrillo) Anemia Chronic- Hgb 8.2-10.0 for past year Asymptomatic bilateral carotid artery stenosis Atherosclerosis without hemodynamically significant stenosis in the carotid arteries per 06/09/18 carotid doppler Atrial fibrillation On Eliquis- no cardioversion, follows with PCP. PT REPORTS HX AFIB ONE TIME WHILE IN HOSPITAL FOLLOWS DR HARPER Broken arm [id number] SURGERY, states she can not have it fixed due to fistula C. difficile colitis hx (2019) does have chronic diarrhea (r/t removal of gallbladder, per pt). Chronic pain Cirrhosis of liver Diabetes Hx of Type 2 IDDM -- no medications currently since placed on diaylsis. Diabetic nephropathy Disc degeneration, lumbar Encounter for management of wound VAC WOUND VAC LEFT FOOT , REASON FOR CURRENT ANTIBIOTICS PER PT End stage renal disease DIALYSIS M/W/F [place] LEFT ARM FISTULA Erosive (osteo)arthritis Gangrene LEFT MIDDLE FINGER, HAS HAD FOR 9 MONTHS GERD (gastroesophageal reflux disease) Gout hx Hiatal hernia HTN (hypertension) PT REPORTS BP HAS BEEN LOW LATELY Hyperlipidemia Left ventricular hypertrophy Moderate/concentric per 05/2020 ECHO- no paper slitter at this time - follows with PCP Lymphedema r/t left arm fracture (unable to be repaired in the past) On anticoagulant therapy Osteoporosis no medications Peripheral arterial disease Pulmonary hypertension Per 05/23/20 ECHO= RV systolic pressure elevated > 60 mmHg (severe pulmonary hypertension RVSP 64 mmHg) Scoliosis Shoulder problem RIGHT ROTATOR CUFF PER PT Sleep apnea NO DEVICE Spinal stenosis Trigeminal neuralgia Follows with neuro- last seen 09/03/20- no acute issues. Usually stable on Lamictal and oxcarbazepine. 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 Family History Daughter Breast cancer Unknown Emphysema, unspecified Family/Other Family history of diabetes mellitus NEPHEW Other Family history non-contributory No family history of adverse response to anesthesia Social History Smoking Status: Never smoker Second Hand Exposure: No; Hx Alcohol Use: No Hx Substance Use: Yes Preferred Language: Romansh Communication Ability: Effective Visual Impairment: No Limitations Funnel Coater Required: No Beliefs That Will Affect Care: None marital status: Current Living Situation: Spouse current occupational status: retired How many Children do You have: 2 Other Information That Helps Us Care for You: No Feels Safe at Home: Yes Safety Concerns: Feels Safe At This Time caffeine: Yes Seatbelt Use: always Assistive Devices: Denture - Upper, Glasses and Wheelchair Review of Systems Review of Systems: REVIEW OF SYSTEMS: Constitutional: No fever, sweats or chills Eyes: No diplopia, no worsening or blurred vision ENT: normal hearing, no trouble swallowing Respiratory: No cough, sputum, dyspnea at rest or on exertion Cardiovascular: No chest pain, tightness or palpitations Abdomen: No pain, nausea, vomiting, diarrhea or constipation Musculoskeletal: (+) arm, leg, sacrum joint pain, no calf pain, swelling Neurologic: (+) wheel chair bound Psychiatric: No anxiety or depression Skin: (+) bruising, ulcerations of feet, and finger Physical Exam Physical Exam: PHYSICAL EXAM: General: awake, alert, no apparent distress Head: Normocephalic, atraumatic ENT: PERRL, EOMI, no pharyngeal exudate, mucous membranes moist Neuro: AAO x 3, speech clear and appropriate, chronic muscle wasting, strength and sensation equal to upper extremity Chest: equal rise and fall of the chest, no accessory muscle use, no heaves or thrills, Clear to auscultation, on room air, Cardiac: Regular rate and rhythm, telemetry reviewed, skin warm dry, cap refill <3 seconds, peripheral pulses +2 no JVD, no murmur, left arm AV graft with good thrill and brui, hematoma noted GI: NABS x 4 quadrants, soft, nontender to palpation, no rebound, guarding or tenderness : dialysis dependant Extremities: right shoulder bruise, left arm bruised, bruisig, lower extremity with bruising Psych: Normal mood and affect Skin: chronic gangrene ulcerations right toe, left heel, and left leg Results & Data Results & Data ([facility]) Vital Signs (Past 12 Hours) Vital Signs Temp Pulse Pulse Resp BP BP Pulse Ox 07/31/21 15:30 76 20 136/66 95 07/31/21 15:25 36.8 C 74 20 137/80 96 07/31/21 14:55 92 H 20 136/67 96 07/31/21 14:25 74 20 137/80 96 07/31/21 14:00 86 12 136/67 95 07/31/21 12:01 92 H 92 H 20 92 07/31/21 11:21 37.6 C H 73 20 135/57 L 97 Laboratory Results Abnormal lab results 07/31/21 07/31/21 07/31/21 Range/Units 12:34 12:38 12:38 WBC 4.27 L (4.8-10.8) K/uL RBC 3.24 L (4.2-5.4) M/uL Hgb 10.7 L (12.0-16.0) g/dL Hct 33.1 L (37-47) % MCV 102.2 H (80-100) fL RDW Std Deviation 67.5 H (36.4-46.3) fL RDW Coeff of Alejandra 18.0 H (11.5-14.5) % Lymph # (Auto) 0.67 L (1.2-3.4) K/uL Creatinine 3.21 H (0.6-1.2) mg/dl BUN/Creatinine Ratio 5.9 L (10-20) Glucose 68 L (70-99(Fasting)) mg/dl Alkaline Phosphatase 173 H (34-104) U/L Albumin 3.1 L (3.4-5.0) gm/dl Lipase 9 L (11-82) U/L SARS-CoV-2, RNA, NAAT POSITIVE A* (NEGATIVE) Diagnostic Findings Chest X-Ray 07/31/21 12:01 XR chest 1V portable HISTORY: 76 years-old Female fall acute chest trauma status post COMPARISON: Chest radiograph 05/22/2020 TECHNIQUE: Supine AP view of the chest FINDINGS: Cardiac silhouette is enlarged. Calcified plaque of the thoracic aorta. The patient is rotated. Chronic left shoulder deformity with absence of the left humeral head. Demineralized appearance the bones with degenerative changes of the shoulders and spine. IMPRESSION: Cardiomegaly without acute process. ACT 112: Negative or not required by law. The above report was generated using voice recognition software. It may contain grammatical, syntax or spelling errors. Electronically signed by: Diogenes Castellon M.D. 07/31/2021 1:13 PM Elbow X-Ray 07/31/21 12:01 LEFT ELBOW 3 VIEWS CLINICAL HISTORY: Left elbow pain. Fall. FINDINGS: 3 views of the left elbow are obtained. No prior studies are available for comparison at the time of dictation. The Examination is degraded by inability to properly position the patient. The skeletal structures are heterogeneously osteopenic. Question a mildly angulated fracture of the radial neck with associated joint effusion. No additional findings are concerning for acute fracture. There is no evidence of dislocation. Surgical clips are noted in the antecubital fossa. Anterior soft tissue edema is suspected. There is advanced atherosclerotic calcification of the regional arteries. IMPRESSION: 1. Question a mildly angulated fracture of the radial neck with associated joint effusion. 2. No additional findings are suspicious for acute fracture. 3. Anterior soft tissue edema is noted. Electronically signed by: Bean Krishna M.D. 07/31/2021 1:17 PM Hip/Pelvis X-Ray 07/31/21 12:01 SINGLE VIEW PELVIS; 3 VIEWS LEFT HIP CLINICAL HISTORY: Fall with left hip pain. FINDINGS: An AP view of the pelvis with AP, frog-leg, and crosstable lateral views of the left hip and femur are compared to study dated 11/08/2018. The skeletal structures are osteopenic. The skeletal structures are osteopenic. Suspect a nondisplaced fracture through the left acetabulum at the junction with the superior pubic ramus. No additional fracture is clearly seen involving the hips or bony pelvis. Intertrochanteric and intramedullary nails are present in the left proximal femur. A left knee arthroplasty is in place. There is advanced atherosclerotic calcification of the femoral arteries. Lumbosacral spondylosis is partially visualized. No bowel obstruction is seen. There are numerous pelvic phleboliths. IMPRESSION: 1. Suspect a nondisplaced left acetabular fracture as above. Correlate with CT. 2. No additional fracture is seen involving the hips or bony pelvis. 3. Postoperative change of the left femur as above. Electronically signed by: Bean Krishna M.D. 07/31/2021 1:47 PM Shoulder X-Ray 07/31/21 12:01 XR shoulder RT min 2V routine CLINICAL HISTORY: Right shoulder pain. COMPARISON: Right shoulder radiograph January 23, 2020. FINDINGS: Severe degenerative changes of the right shoulder are noted with elevation of the right humeral head. 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 This has developed since radiograph January 23, 2020. A 1.4 x 1.3 cm ossific fragment lateral to the humeral head is noted. A few small ossific/calcific densities are present. There is no definite acute fracture. Soft tissue swelling is present. IMPRESSION: 1. Severe degenerative changes of the right shoulder with elevation of the right humeral head consistent with chronic rotator cuff tear. 2. No definite acute fracture. 3. Osteolysis of the distal right clavicle and the adjacent acromion with a few associated ossific fragments, as described above. ACT 112: Negative or not required by law. Electronically signed by: Dayron Cardozo M.D. 07/31/2021 1:37 PM Toe X-Ray 07/31/21 12:02 XR toe(s) RT min 2V CLINICAL HISTORY: Right fourth toe pain. COMPARISON STUDY: Right forefoot MRI 06/17/2021. FINDINGS: The bones are osteopenic. Soft tissue swelling within the fourth toe. The head and shaft of the right fourth toe proximal phalanx are not identified. This area is also partially obscured by the overlapping fifth toe. This could be due to prior resection or destruction the setting of osteomyelitis. IMPRESSION: The head and shaft of the right fourth toe proximal phalanx are not identified. This could be due to prior resection or bony destruction in the setting of osteomyelitis. ACT 112: Negative or not required by law. Electronically signed by: Marko Wooten M.D. 07/31/2021 1:[address] 07/31/21 12:03 CT head/brain wo con CLINICAL HISTORY: 76 years-old Female with fall. Acute head trauma status post fall TECHNIQUE: Multiple axial CT images of the head were obtained without contrast. A dose lowering technique was utilized adhering to the principles of ALARA. CT DOSE: 537.48 mGy.cm COMPARISON: Head CT 01/24/2020 FINDINGS: No acute intracranial hemorrhage, midline shift, intracranial mass, hydrocephalus, territorial ischemia or abnormal extra-axial collection. Age- related involutional changes. White matter hypodensities suggest chronic microvascular ischemic disease. The study is mildly motion degraded. Cerebral vascular calcifications. The calvarium is intact. Mastoid air cells are clear. Mild dorsal thickening of the right maxillary sinus. Metopic suture. Prior bilateral lens repair. Unremarkable soft tissues. IMPRESSION: No acute intracranial abnormality or calvarial fracture. ACT 112: Negative or not required by law. The above report was generated using voice recognition software. It may contain grammatical, syntax or spelling errors. Electronically signed by: Diogenes Castellon M.D. 07/31/2021 12:[address] 07/31/21 13:54 CT pelvis wo con HISTORY: 76 years-old Female fall left hip pain acute left-sided hip and pelvic pain status post fall COMPARISON: Pelvis and hip radiographs of same day, CT abdomen pelvis 07/07/2018. TECHNIQUE: Multiple axial CT images of the pelvis were obtained without the use of IV contrast. A dose lowering technique was used consistent with the principals of ALARA. FINDINGS: There is an acute mildly displaced fracture involving the left inferior pubic ramus with minimal comminution. Chronic fracture deformity of the right inferior pubic ramus. There is a subtle acute nondisplaced fracture at the left superior pubic ramus and acetabular junction as seen on image 151 of series 2 correlating with the radiographic finding. There is subtle angulation involving the mid S3 segment on image 33 of series 201 which is new from prior. Severe degenerative changes of the imaged lumbar spine. No definite additional acute fracture or subluxation. Moderate osteoarthritis of the hips. Subtle right femoral head avascular necrosis suggestive on image 33 of the coronal series. Intratrochanteric nail with medullary dhaval of the left femur. No evidence of hard orr complication. Vascular calcifications of the atrophic uterus. Moderate fecal retention. Partially imaged 2.9 cm hypodense lesion of the inferior pole right kidney suggestive of a cyst. Urinary bladder wall thickening with perivesicular stranding and partial collapse. Atrophy of the pelvic musculature. Extensive vascular calcifications. Mild right inguinal chain adenopathy. IMPRESSION: 1. Acute mildly displaced fracture of the left inferior pubic ramus. 2. Confirmation of the subtle acute nondisplaced fracture involving the left superior pubic ramus and acetabular junction. 3. Healed chronic fracture deformity of the right inferior pubic ramus. 4. Mild angulation of the S3 segment is new from prior suspicious for an additional acute fracture. 5. 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 ACT 112: Negative or not required by law. The above report was generated using voice recognition software. It may contain grammatical, syntax or spelling errors. Electronically signed by: Diogenes Castellon M.D. 07/31/2021 2:46 PM Medications Administered Discontinued Medications Sotrovimab 500 mg/ Sodium (Chloride) 108 mls @ 216 mls/hr IV NOW ONE; Protocol Stop: 07/31/21 14:08 Last Infusion: 07/31/21 14:58 Dose: 0 mls/hr Documented by: [id number] Admin: 07/31/21 14:23 Dose: 216 mls/hr Documented by: [id number] Miscellaneous (Stat Iv) 1 ea N/A NOW STA Stop: 07/31/21 13:25 Last Admin: 07/31/21 14:25 Dose: Not Given Documented by: [id number] Morphine Sulfate (Morphine Sulfate 4 Mg/Ml 1 Ml Carp\\Vial) 4 mg IV NOW STA Stop: 07/31/21 14:35 Last Admin: 07/31/21 14:42 Dose: 4 mg Documented by: [id number] Sodium Chloride (Sodium Chloride 0.9% 10ml Flush) 30 ml IV ONCE ONE Stop: 07/31/21 13:40 Last Admin: 07/31/21 14:42 Dose: 30 ml Documented by: [id number] ECG Additional Comments: Atrial fibrillation Low voltage QRS Septal infarct (cited on or before 21-MAY-2020) Abnormal ECG When compared with ECG of 21-MAY-2020 16:45, Nonspecific T wave abnormality, worse in Inferior leads Nonspecific T wave abnormality no longer evident in Lateral leads Code Status & VTE Plan Code Status CODE: FULL VTE: SCDS, Apixaban Supervising Physician Co-Signing Physician Notes I personally saw and examined the patient. I verified all smith points and agree with ALONDRA Ward with the following exceptions and/or additions: 76 year old female admission after falling of edge of her wheelchair. Pelvic fracture notes on CT. SARS-COV-2 testing incidentally positive - patient has no URI Sx but has been more fatigued lately than usual. O/E HS1+2, RRR, no murmurs, Chest CTAB, Abdomen SNT, painful left groin on any movement A/P Pelvic fracture - non-operative treatment with pain medication. PT/OT. Patient would prefer to go home rather than rehab given prior poor experience at [facility] and good support at home. I do not suspect radial neck fracture based on lack of tenderness on exam Asymptomatic COVID-19 infection - No acute process on CXR. No current symptoms. Monoclonal antibodies given in ER prior to decision made regarding admission. Patient is fully vaccinated with her booster given in April 2021. PG Care Time/CCT Total # of Minutes Spent Total Time Spent with Patient: Total time spent is greater than 50% in coordination of care (as documented) at patient's floor/unit and/or counseling patient: Coding Level of Care Code 34745 Initial Inpt Care Lvl 3 Diagnoses Closed pelvic fracture S32.9XXA Encounter type: initial encounter Pelvic bone location: unspecified part of pelvis Acetabular fracture S32.402A Encounter type: initial encounter Fracture alignment: nondisplaced Fracture type: closed Laterality: left Sublocation of acetabulum: unspecified portion of acetabulum Fracture of head of radius S52.125A Encounter type: initial encounter Fracture alignment: nondisplaced Fracture type: closed Laterality: left COVID-19 U07.1 ESRD (end stage renal disease) on dialysis N18.6; Z99.2 Atrial fibrillation I48.91 Open wound of right great toe S91.101A Trigeminal neuralgia G50.0 Necrotic ulceration of fingers I96 (1) Closed pelvic fracture Encounter type: initial encounter Pelvic bone location: unspecified part of pelvis (2) Acetabular fracture Encounter type: initial encounter Fracture alignment: nondisplaced Fracture type: closed Laterality: left Sublocation of acetabulum: unspecified portion of acetabulum Qualified Code(s): S32.402A - Unspecified fracture of left acetabulum, initial encounter for closed fracture (3) Fracture of head of radius Encounter type: initial encounter Fracture alignment: nondisplaced Fracture type: closed Laterality: left Qualified Code(s): S52.125A - Nondisplaced fracture of head of left radius, initial encounter for closed fracture
--- NOTE | 2021-07-31 17:44 | Electrocardiogram Report ---
Test Reason : Blood Pressure : / mmHG Vent. Rate : 073 BPM Atrial Rate : 416 BPM P-R Int : 000 ms QRS Dur : 070 ms QT Int : 382 ms P-R-T Axes : 000 059 024 degrees QTc Int : 420 ms Atrial fibrillation Low voltage QRS Abnormal ECG When compared with ECG of 21-MAY-2020 16:45, Nonspecific T wave abnormality, worse in Inferior leads Nonspecific T wave abnormality no longer evident in Lateral leads Confirmed by Roderick Matos ([id number]) on 07/31/2021 5:44:31 PM Referred By: REFERRED SELF Confirmed By:Dawson Matos
[2021-07-31] MEDS: HYDROmorphone INJ 0.5 MG/0.5 ML SYR IV PRN (19:45)
[2021-07-31] MEDS: NEPHROCAPS PO SCH (21:21)
[2021-07-31] MEDS: OXcarbazepine 150 MG TABLET PO SCH (21:21)
[2021-07-31] MEDS: CALCIUM ACETATE 667 MG CAP/TAB PO SCH (21:22)
[2021-07-31] MEDS: LABETALOL HCL 200 MG TAB PO SCH (21:22)
[2021-07-31] MEDS: BUMETANIDE 1 MG TAB PO SCH (21:22)
[2021-07-31] MEDS: lamoTRIgine 25 MG TAB PO SCH (21:23)
[2021-07-31] MEDS: APIXABAN 2.5 MG TAB PO SCH (21:23)
[2021-07-31] MEDS: HYDROCODONE/ACETAMOPHEN 5/325MG TAB PO SCH (21:44)
[2021-08-01] MEDS: MELATONIN 3 MG TAB PO PRN ×2 (00:09→21:26)
[2021-08-01 08:13] LABS: Basophils # (auto) 0.02 K/uL (0-0.2); Basophils % (auto) 0.5 %; Eosinophils # (auto) 0.03 K/uL (0-0.5); Eosinophils % (auto) 0.7 %; Hematocrit (blood only) 31.1 % (37-47); Hemoglobin 9.7 g/dL (12.0-16.0); Immature Granulocytes # (auto) 0.02 K/uL (0.00-0.02); Immature Granulocytes % (auto) 0.5 %; Lymphocytes # (auto) 1.13 K/uL (1.2-3.4); Mean Corpuscular Hemoglobin 31.8 pg (25-34); Mean Corpuscular Hgb Conc 31.2 g/dL (32-36); Mean Platelet Volume 8.6 fL (7.4-10.4); Monocytes # (auto) 0.55 K/uL (0.11-0.59); Monocytes % (auto) 12.6 %; Neutrophils % (auto) 59.7 %; Platelet Count 107 K/uL (130-400); RDW Coefficient of Variation 17.9 % (11.5-14.5); RDW Standard Deviation 66.9 fL (36.4-46.3); Red Blood Count 3.05 M/uL (4.2-5.4); White Blood Count 4.35 K/uL (4.8-10.8)
[2021-08-01 08:44] LABS: BUN Creatinine Ratio 7.1 (10-20); Creatinine Clr Calc Pharmacy 10.2 ml/min; Est GFR (African American) 11.8 ml/min; Est GFR (Non-African American) 10.2 ml/min; Magnesium 1.8 mg/dl (1.7-2.4); Potassium 4.1 mmol/L (3.5-5.1)
[2021-08-01] MEDS: BUMETANIDE 1 MG TAB PO SCH ×2 (09:15→17:51)
[2021-08-01] MEDS: lamoTRIgine 25 MG TAB PO SCH ×2 (09:15→20:11)
[2021-08-01] MEDS: CALCIUM ACETATE 667 MG CAP/TAB PO SCH ×2 (09:15→20:11)
[2021-08-01] MEDS: OXcarbazepine 150 MG TABLET PO SCH ×2 (09:15→20:11)
[2021-08-01] MEDS: PANTOprazole 40 MG TAB PO SCH (09:16)
[2021-08-01] MEDS: APIXABAN 2.5 MG TAB PO SCH ×2 (09:16→20:12)
[2021-08-01] MEDS ORDERED: EPOETIN ALFA 20,000 UNITS/ML VIAL IV SCH (09:30)
[2021-08-01] MEDS: HYDROCODONE/ACETAMOPHEN 5/325MG TAB PO SCH ×3 (09:37→20:56)
[2021-08-01] MEDS: LABETALOL HCL 200 MG TAB PO SCH ×2 (09:37→20:56)
--- NOTE | 2021-08-01 12:17 | Nephrology Consultation ---
Date of Consultation August 01, 2021 Assessment & Plan (1) ESRD (end stage renal disease) on dialysis: (2) Anemia: (3) Hip fracture, left: (4) COVID-19: End-stage renal disease on hemodialysis, admitted to the hospital after a mechanical fall. She was found to have closed left pelvic fracture, no plan for Sx, pain controlled. Has end-stage renal disease, on dialysis Wednesday, Wednesday, Wednesday, had full dialysis treatment on Wednesday as her regular schedule. Currently blood pressure, electrolyte, volume status acceptable. AV fistula with decent thrill and bruit. --plan for dialysis today as her regular schedule --Epogen [id number] units With dialysis today --continue on phosphate binder with meal. --Nephrocaps daily --next dialysis will be Wednesday, outpatient dialysis unit is currently looking in to options of either dialyzing her at the regular dialysis clinic in the [facility] versus referring her to COVID clinic in [place] which patient mentioned will be almost impossible for her to go. Will follow Thank you for allowing me to participate in your patient's care. It was a pleasure to see Kalyani History of Present Illness Reason for Consultation: ESRD on HD Attending Physician: Renato Werner MD History of Present Illness Kalyani Diaz is a 76-year-old female with ESRD on HD admitted to the hospital after a fall at home and closed pelvic fracture.Nephrology consult was requested to manage hemodialysis while in hospital.EMR records including labs and imaging reviewed in detail during patient's visit. Kalyani presented to ER yesterday after she fell of the edge of over wheelchair at home. 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 She was advised for rehab for few days however she refused and she is planning to go home on discharge. She was also found to have COVID 19 ( had vaccine and booster) but she has been asymptomatic except some loss of appetite and fatigue over last 2 days but feels like her appetite improving starting this morning, received dose of monoclonals in ER. She gets Dialysis on MWF. Nephrology has been consulted. Has end-stage renal disease, on hemodialysis Wednesday, Wednesday, Wednesday via left brachiocephalic AV fistula. Last dialysis was Wednesday. Currently blood pressure, electrolyte, volume status acceptable. Overall she is feeling much better this morning, pain control, no shortness of breath, appetite improving and had breakfast this morning. She is looking forward to going home on discharge. Allergies Allergy/AdvReac Type Severity Reaction Status Date / Time metformin Allergy Unknown does not Verified 07/31/21 15:07 remember pioglitazone Allergy Unknown ? NOT SURE Verified 07/31/21 15:07 rosiglitazone Allergy Unknown NOT SURE Verified 07/31/21 15:07 simvastatin Allergy Unknown "did not Verified 07/31/21 15:07 feel well while taking" ANGEL Inhibitors AdvReac Mild Cough Verified 07/31/21 15:07 oxycodone AdvReac Mild Nausea Verified 07/31/21 15:07 Nlgemlq-LNI-XgW Reductase AdvReac Mild LEGS HURT Verified 07/31/21 15:07 Inhibitor [Bxvvikd-Hbw-Skt Reductase Inhibitor] suture AdvReac Mild Catgut - Verified 07/31/21 15:07 slow healing, inflammed tissue escitalopram AdvReac Unknown Unknown Verified 07/31/21 15:07 homatropine AdvReac Unknown Unknown Verified 07/31/21 15:07 [From Hycodan (with homatropin)] Home Medications Medication Instructions Recorded Confirmed Type cetirizine 10 mg tablet (Zyrtec) 10 mg PO QPM 07/07/18 07/31/21 History vit B complx, C-iron 8 mg-folic 2 tab PO QDD 12/19/18 07/31/21 History acid 800 mcg-D3 1,000 unit-zinc tablet (ProRenal) biotin 1 mg capsule 1 mg PO BID cap 02/01/19 07/31/21 History lactobacillus combination no.4 3 3,000 mmu cells PO BIDM cap 02/01/19 07/31/21 History billion cell capsule (Probiotic) calcium acetate(phosphat bind) 667 667 mg PO BID cap 03/12/20 07/31/21 History mg capsule bumetanide 2 mg tablet 2 mg PO BID #180 tab 06/11/20 07/31/21 Rx vitamins A,C,S-ador-sfajkq 14,320 1 cap PO BID 10/10/20 07/31/21 History unit-226 mg-200 unit capsule (PreserVision AREDS) omeprazole 40 mg capsule,delayed 40 mg PO QAM #90 cap 10/11/20 07/31/21 Rx release diphenhydramine 25 1 tab PO HS 02/04/21 07/31/21 History mg-acetaminophen 500 mg tablet (Tylenol PM Extra Strength) loperamide 2 mg capsule (Imodium 2 mg PO UD PRN 02/21/21 07/31/21 History A-D) aloe vera 1 applic TOPICAL WK 05/08/21 07/31/21 History promethazine 25 mg tablet 25 mg PO UD PRN 05/08/21 07/31/21 History labetalol 200 mg tablet See Rx Instructions .ROUTE 05/09/21 07/31/21 Rx .COMPLEX #230 tablet lamotrigine 25 mg tablet (Lamictal) 25 mg PO BID #60 tab 07/03/21 07/31/21 Rx oxcarbazepine 300 mg tablet 150 - 300 mg PO .COMPLEX 30 Days 07/03/21 07/31/21 Rx (Trileptal) #45 tab hydrocodone 5 mg-acetaminophen 325 1 tab PO TID #90 tab 07/14/21 07/31/21 Rx mg tablet apixaban 2.5 mg tablet 2.5 mg PO BID #90 tab 07/31/21 07/31/21 Rx Patient History Medical History (Updated 07/31/21 @ 16:49 by ALONDRA Carrillo) Anemia Chronic- Hgb 8.2-10.0 for past year Asymptomatic bilateral carotid artery stenosis Atherosclerosis without hemodynamically significant stenosis in the carotid arteries per 06/09/18 carotid doppler Atrial fibrillation On Eliquis- no cardioversion, follows with PCP. PT REPORTS HX AFIB ONE TIME WHILE IN HOSPITAL FOLLOWS DR HARPER Broken arm [id number] SURGERY, states she can not have it fixed due to fistula C. difficile colitis hx (2019) does have chronic diarrhea (r/t removal of gallbladder, per pt). Chronic pain Cirrhosis of liver Diabetes Hx of Type 2 IDDM -- no medications currently since placed on diaylsis. 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 Usually stable on Lamictal and oxcarbazepine. 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 Family History Daughter Breast cancer Unknown Emphysema, unspecified Family/Other Family history of diabetes mellitus NEPHEW Other Family history non-contributory No family history of adverse response to anesthesia Social History Smoking Status: Never smoker Second Hand Exposure: No; Hx Alcohol Use: No Hx Substance Use: Yes Preferred Language: Nigerian Communication Ability: Effective Visual Impairment: No 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 Physical Exam Constitutional: WD/WN, vitals as above no acute distress Eyes: + anicteric sclerae Neck: normal visual inspection Respiratory: no respiratory distress Auscultation: lungs clear to auscultation bilaterally Cardiovascular: Rate/Rhythm: regular rate and regular rhythm Heart Sounds: normal S1 and normal S2 Extremities: no edema Skin: no rashes Neurologic: no focal motor deficits and not confused Psychiatric: Orientation: alert and oriented x 3 Results & Data ([facility]) Vital Signs (Past 12 Hours) Vital Signs Temp Pulse Pulse Pulse Resp BP BP 08/01/21 12:00 58 L 112/51 L 08/01/21 11:40 51 L 106/69 08/01/21 11:20 63 100/46 L 08/01/21 11:00 63 105/56 L 08/01/21 10:45 52 L 110/52 L 08/01/21 10:30 54 L 94/51 L 08/01/21 10:24 58 L 102/57 L 08/01/21 10:17 37.1 C 63 08/01/21 09:13 73 112/58 L 08/01/21 08:51 36.8 C 53 L 16 102/44 L 08/01/21 00:29 37.2 C Pulse Ox 08/01/21 12:00 08/01/21 11:40 08/01/21 11:20 08/01/21 11:00 08/01/21 10:45 08/01/21 10:30 08/01/21 10:24 08/01/21 10:17 08/01/21 09:13 08/01/21 08:51 92 08/01/21 00:29 PG Care Time/CCT Total # of Minutes Spent Total Time Spent with Patient: Total time spent is greater than 50% in coordination of care (as documented) at patient's floor/unit and/or counseling patient: Coding Level of Care Code 01320 Office/OBS Consult Lvl 3 Diagnoses ESRD (end stage renal disease) on dialysis N18.6; Z99.2 Anemia D64.9 Hip fracture, left S72.002A Encounter type: initial encounter Fracture type: closed COVID-19 U07.1 (1) Hip fracture, left Encounter type: initial encounter Fracture type: closed Qualified Code(s): S72.002A - Fracture of unspecified part of neck of left femur, initial encounter for closed fracture
[2021-08-01] MEDS ORDERED: CARBOHYDRATES FOR HYPOGLYCEMIA PO PRN (15:00)
[2021-08-01] MEDS ORDERED: GLUCOSE 10 TABS/TUBE PO PRN (15:00)
[2021-08-01] MEDS ORDERED: GLUCAGON FOR INJ 1 MG VIAL IM PRN (15:00)
[2021-08-01] MEDS ORDERED: GLUCOSE 40% GEL 15 GM TUBE PO PRN (15:00)
[2021-08-01] MEDS ORDERED: DEXTROSE 50% 50 ML SYRINGE IV PRN (15:00)
--- NOTE | 2021-08-01 15:28 | Orthopedic Consultation ---
Date of Service August 01, 2021 Assessment & Plan (1) Closed pelvic fracture: I talked to Kalyani about her diagnosis and treatment options. She denies any pain in her elbows and I do not think there is a fracture of the radial head. She does not need further treatment for that. With regards to her left hip, she has a pubic rami fracture near the root of the acetabulum. This can be treated nonoperatively. She can be weightbearing as tolerated. She does not ambulate as it is. She can follow-up in my office as previously scheduled in about a month for shoulder injections. If she still having pain in her pelvis at that time I can treat it further at that time. If you have any further questions please feel free to contact me at [phone] History of Present Illness Reason for Consultation: Left pubic rami fracture. Requesting Physician: . Attending Physician: Renato Werner MD Kalyani is a pleasant 76-year-old female who is well-known to me. I give her serial injections in her shoulders. She does not ambulate. She was not eating well recently and was feeling weak. She had a mild fall. She was having some left hip and groin pain. She also has an abrasion on her left elbow. She came to the emergency room where x-rays of the hip as well as a CT scan do show a pubic rami fracture. There was a questionable fracture of the radial head. She was admitted to the medical service. Orthopedics was consulted to evaluate and treat. Allergies Allergy/AdvReac Type Severity Reaction Status Date / Time metformin Allergy Unknown does not Verified 07/31/21 15:07 remember pioglitazone Allergy Unknown ? NOT SURE Verified 07/31/21 15:07 rosiglitazone Allergy Unknown NOT SURE Verified 07/31/21 15:07 simvastatin Allergy Unknown "did not Verified 07/31/21 15:07 feel well while taking" ANGEL Inhibitors AdvReac Mild Cough Verified 07/31/21 15:07 oxycodone AdvReac Mild Nausea Verified 07/31/21 15:07 Dyaiqsu-XBP-NqS Reductase AdvReac Mild LEGS HURT Verified 07/31/21 15:07 Inhibitor [Degmqev-Nio-Cus Reductase Inhibitor] suture AdvReac Mild Catgut - Verified 07/31/21 15:07 slow healing, inflammed tissue escitalopram AdvReac Unknown Unknown Verified 07/31/21 15:07 homatropine AdvReac Unknown Unknown Verified 07/31/21 15:07 [[address] [facility] (with homatropin)] Home Medications Medication Instructions Recorded Confirmed Type cetirizine 10 mg tablet (Zyrtec) 10 mg PO QPM 07/07/18 07/31/21 History vit B complx, C-iron 8 mg-folic 2 tab PO QDD 12/19/18 07/31/21 History acid 800 mcg-D3 1,000 unit-zinc tablet (ProRenal) biotin 1 mg capsule 1 mg PO BID cap 02/01/19 07/31/21 History lactobacillus combination no.4 3 3,000 mmu cells PO BIDM cap 02/01/19 07/31/21 History billion cell capsule (Probiotic) calcium acetate(phosphat bind) 667 667 mg PO BID cap 03/12/20 07/31/21 History mg capsule bumetanide 2 mg tablet 2 mg PO BID #180 tab 06/11/20 07/31/21 Rx vitamins A,C,A-qhgf-dmpshn 14,320 1 cap PO BID 10/10/20 07/31/21 History unit-226 mg-200 unit capsule (PreserVision AREDS) omeprazole 40 mg capsule,delayed 40 mg PO QAM #90 cap 10/11/20 07/31/21 Rx release diphenhydramine 25 1 tab PO HS 02/04/21 07/31/21 History mg-acetaminophen 500 mg tablet (Tylenol PM Extra Strength) loperamide 2 mg capsule (Imodium 2 mg PO UD PRN 02/21/21 07/31/21 History A-D) aloe vera 1 applic TOPICAL WK 05/08/21 07/31/21 History promethazine 25 mg tablet 25 mg PO UD PRN 05/08/21 07/31/21 History labetalol 200 mg tablet See Rx Instructions .ROUTE 05/09/21 07/31/21 Rx .COMPLEX #230 tablet lamotrigine 25 mg tablet (Lamictal) 25 mg PO BID #60 tab 07/03/21 07/31/21 Rx oxcarbazepine 300 mg tablet 150 - 300 mg PO .COMPLEX 30 Days 07/03/21 07/31/21 Rx (Trileptal) #45 tab hydrocodone 5 mg-acetaminophen 325 1 tab PO TID #90 tab 07/14/21 07/31/21 Rx mg tablet apixaban 2.5 mg tablet 2.5 mg PO BID #90 tab 07/31/21 07/31/21 Rx Past Med/Surg History Medical History Anemia Chronic- Hgb 8.2-10.0 for past year Asymptomatic bilateral carotid artery stenosis Atherosclerosis without hemodynamically significant stenosis in the carotid arteries per 06/09/18 carotid doppler Atrial fibrillation On Eliquis- no cardioversion, follows with PCP. PT REPORTS HX AFIB ONE TIME WHILE IN HOSPITAL FOLLOWS DR HARPER Broken arm [id number] SURGERY, states she can not have it fixed due to fistula C. difficile colitis hx (2019) does have chronic diarrhea (r/t removal of gallbladder, per pt). Chronic pain Cirrhosis of liver Diabetes Hx of Type 2 IDDM -- no medications currently since placed on diaylsis. Diabetic nephropathy Disc degeneration, lumbar Encounter for management of wound VAC WOUND VAC LEFT FOOT , REASON FOR CURRENT ANTIBIOTICS PER PT End stage renal disease DIALYSIS M/W/F [place] LEFT ARM FISTULA Erosive (osteo)arthritis Gangrene LEFT MIDDLE FINGER, HAS HAD FOR 9 MONTHS GERD (gastroesophageal reflux disease) Gout hx Hiatal hernia HTN (hypertension) PT REPORTS BP HAS BEEN LOW LATELY Hyperlipidemia Left ventricular hypertrophy Moderate/concentric per 05/2020 ECHO- no surgeon assistant at this time - follows with PCP Lymphedema r/t left arm fracture (unable to be repaired in the past) On anticoagulant therapy Osteoporosis no medications Peripheral arterial disease Pulmonary hypertension Per 05/23/20 ECHO= RV systolic pressure elevated > 60 mmHg (severe pulmonary hypertension RVSP 64 mmHg) Scoliosis Shoulder problem RIGHT ROTATOR CUFF PER PT Sleep apnea NO DEVICE Spinal stenosis Trigeminal neuralgia Follows with neuro- last seen 09/03/20- no acute issues. Usually stable on Lamictal and oxcarbazepine. 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 Family History Daughter Breast cancer Unknown Emphysema, unspecified Family/Other Family history of diabetes mellitus NEPHEW Other Family history non-contributory No family history of adverse response to anesthesia Social History Smoking Status: Never smoker Second Hand Exposure: No; Hx Alcohol Use: No Hx Substance Use: Yes Preferred Language: Kiswahili Communication Ability: Effective Visual Impairment: No Limitations Diamond 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 Physical Exam On physical examination left hip, she has some pain around the pubic rami. I can do range of motion of her hip with minimal discomfort in the groin. Her leg lengths are equal. On examination of her elbow, she has a small skin tear with some ecchymosis. She has good range of motion of her elbow. She has no pain over the radial head. Constitutional WD/WN, vitals as above Eyes PERRL, conjunctivae normal, anicteric sclerae ENMT external ear and nose normal, oropharynx normal Neck trachea midline, no thyromegaly Respiratory normal respiratory effort Cardiovascular RRR, no murmur, no edema Gastrointestinal (Abdomen) normal bowel sounds, soft, nontender, no hepatosplenomegaly Psychiatric A+Ox3, euthymic affect Results & Data Results & Data Laboratory Results . Diagnostic Findings X-rays and CT scan of the left hip and pelvis were reviewed. The studies do show minimally displaced fracture of the superior and inferior pubic rami right at the root near the acetabulum. X-rays of the left elbow were reviewed. They are poor quality x-rays. There is a questionable fracture of the radial head. PG Care Time/CCT Total # of Minutes Spent Total Time Spent with Patient: Total time spent is greater than 50% in coordination of care (as documented) at patient's floor/unit and/or counseling patient: Coding Level of Care Code 47781 Inpt Consult Level 4 Diagnoses Closed pelvic fracture S32.9XXA Encounter type: initial encounter Pelvic bone location: unspecified part of pelvis (1) Closed pelvic fracture Encounter type: initial encounter Pelvic bone location: unspecified part of pelvis
--- NOTE | 2021-08-01 15:31 | Hospitalist Progress Note ---
Date of Service August 01, 2021 Assessment & Plan (1) Closed pelvic fracture: Plan: S/P mechanical fall related to not putting the brakes on her wheelchair 1. Acute mildly displaced fracture of the left inferior pubic ramus. 2. Confirmation of the subtle acute nondisplaced fracture involving the left superior pubic ramus and acetabular junction - Orthopedics consulted-appreciate assistance; likely will be deemed nonsurgical - Pain control - Percocet and hydromorphone - PT evaluation -- deferred eval today since she was receiving HD - Evaluation for rehab likely needed- case management consult placed, although per their documentation she is adamantly refusing rehab (2) Acetabular fracture: Plan: As above (3) Fracture of head of radius: Plan: Sling applied in the EMD - Appreciate orthopedics assistance - Patient has broken left arm in 2018 with reduced ROM (4) COVID-19: Plan: Unsure where she is at the course of illness as she is asymptomatic - Lives at home with - she notified him - Fatigue only symptom presently - Continue her Eliquis for VTE - SPO2 on RA 96% - Follow clinically - Currently not a candidate for other therapeutics (already given monoclonal antibodies in ER) - Maintain COVID isolation precautions (5) Hypoglycemia: Plan: - Blood sugar this morning on AM labs was 42, repeat fingerstick was 52 - After eating, pt's blood sugar improved to 114 - This afternoon, fingerstick performed and pt was low at 69 - She has a h/o DM but is presently controlled with medications/insulin - Also w/ documented h/o cirrhosis which can contribute to hypoglycemic episodes - Would advise eating small frequent meals throughout the day - Will monitor fingersticks AC and HS while in house (6) ESRD (end stage renal disease) on dialysis: Plan: Continue dialysis MWF - Nephrology consulted-appreciate assistance - COVID positive which will cause issues with where she can continue her HD sessions until she completes quarantine - Continue renal caps and phosphate binder - Labetalol continued - Bumex 1mg BID continue for now follow fluid volume and renal indices (7) Atrial fibrillation: Plan: Rate controlled - Continue Eliquis (8) Open wound of right great toe: Plan: Wound of right toe with CONS in May -- appears gangrenous and is for probable amputation in near future - wound care consult placed - wound care dressings to include Luz Maria and an optilock or Zetuvit per wound clinic documentation (9) Necrotic ulceration of fingers: Plan: Follows with wound care and awaiting amputation - pending AV fistula repair - Wound care consultation appreciated (10) Trigeminal neuralgia: Plan: - Continue Lamotrigine - Continue Trileptal (11) Pressure ulcer of left foot, unstageable: Plan: - Pressure ulcer left foot, stage 3 per wound clinic note from 07/29 - Debridement performed in office on 07/29 and area cultured - Per culture report, GBS noted, sensitivities below - Initiate Unasyn 1.5g which will be adjusted to q24h for creatinine clearance (can be converted to PO Ampicillin upon d/c) - Wound should be dressed with Luz Maria and an Optilock or Zetuvit as indicated [place] [address] / Director: Neo Jensen M.D. Clinical Laboratory Report Name: KEVIN JEWELL Acct: [id number] Status: ESTELLA PRADHANR : 1945 [facility] [place] Date: 07/29/21 Age: 76 Sex: F Dis Date: Loc: Wound Care Center Spec: [id number] Collected: 07/29/21 Received: 07/29/[address]: Ute Steiner CRNP Source: Foot,Left OV Order: Ordered: Surf Wnd Cul/Sm Comments: Comment L lateral foot Queries: Comment L lateral foot Procedure Result Verified Site Gram Stain Final 07/29/21 Gram Stain Result Few Gram Positive Cocci Few WBCs Seen Surface Wound Culture Final 08/01/21 Organism 1 Group B Beta Strep Quantity Many Sens Sensitivities to Follow +MixWound Plus Low Counts of Probable Skin Martha Grp.B Strp RX M.I.C. --- --------- Ampicillin S 0.12 Azithromycin R >2 Cefepime S <=0.25 Cefotaxime S <=0.25 Ceftriaxone S <=0.25 Chloramphenicol S 4 Clindamycin## R Erythromycin R >0.5 Penicillin S 0.06 Vancomycin S 0.5 Plan: At this point, pt will need to wait arrangements to accommodate her HD sessions now that she is COVID+, per CM, likely will not know anything until Wednesday which will require her to remain in the hospital until then. Per Nephro note, she is to continue HD on MWF as per her current schedule. Continue pain control and PT. Repeat labs in AM. Resumed pt's imodium that she takes for chronic diarrheal stools. Admission and Anticipated Discharge Date Admission Date: July 31, 2021 Subjective Patient seen on daily rounds this afternoon. Pt undergoing HD at the time of my evaluation. She currently c/o pain in her pelvis, but otherwise no issues. Denies chest pain, dyspnea, cough, n/v/d, loss of taste/smell, congestion, or gu symptoms. She incidentally tested positive for COVID in the ER. She is vaxx'd and boosted. Monoclonal antibodies given in the ER prior to admission. Review of Systems Review of Systems: Constitutional: No fever, sweats or chills Eyes: No diplopia, no worsening or blurred vision ENT: normal hearing, no trouble swallowing Respiratory: No cough, sputum, dyspnea at rest or on exertion Cardiovascular: No chest pain, tightness or palpitations Abdomen: No pain, nausea, vomiting, diarrhea or constipation Musculoskeletal: (+) arm, leg, sacrum joint pain, no calf pain, swelling Neurologic: (+) wheel chair bound Psychiatric: No anxiety or depression Skin: (+) bruising, ulcerations of feet, and finger Physical Exam Physical Exam: GENERAL: 76 yo elderly WF who appears chronically ill. NAD. LUNGS: Clear to auscultation bilaterally. No W/R/R. CARDIOVASCULAR: Regular rate and rhythm. No M/G/R. ABDOMEN: Soft, non-tender and non-distended. BS normal x 4 quad. EXTREMITIES: No edema. Non-tender. Peripheral pulses +2/4. s/p partial amputation of L foot. L arm AV fistula w/ good thrill. NEUROLOGIC: A&O x3. PSYCHIATRIC: Cooperative. Appropriate mood and affect. SKIN: Bruising noted over all extremities. Chronic ulcerations noted over right hallux, left heel, and left leg. Results & Data Results & Data ([facility]) Vital Signs (Past 12 Hours) Vital Signs Temp Pulse Pulse Pulse Resp BP BP 08/01/21 14:24 37.6 C H 66 111/59 L 08/01/21 14:20 61 104/59 L 08/01/21 14:00 61 98/53 L 08/01/21 13:40 66 123/60 08/01/21 13:20 86 111/45 L 08/01/21 13:00 52 L 115/55 L 08/01/21 12:40 55 L 100/59 L 08/01/21 12:20 63 113/47 L 08/01/21 12:00 58 L 112/51 L 08/01/21 11:40 51 L 106/69 08/01/21 11:20 63 100/46 L 08/01/21 11:00 63 105/56 L 08/01/21 10:45 52 L 110/52 L 08/01/21 10:30 54 L 94/51 L 08/01/21 10:24 58 L 102/57 L 08/01/21 10:17 37.1 C 63 08/01/21 09:13 73 08/01/21 08:51 36.8 C 53 L 16 BP Pulse Ox 08/01/21 14:24 08/01/21 14:20 08/01/21 14:00 08/01/21 13:40 08/01/21 13:20 08/01/21 13:00 08/01/21 12:40 08/01/21 12:20 08/01/21 12:00 08/01/21 11:40 08/01/21 11:20 08/01/21 11:00 08/01/21 10:45 08/01/21 10:30 08/01/21 10:24 08/01/21 10:17 08/01/21 09:13 112/58 L 08/01/21 08:51 102/44 L 92 Laboratory Results 08/01/21 07:54 08/01/21 07:54 PG Care Time/CCT Total # of Minutes Spent Total Time Spent with Patient: Total time spent is greater than 50% in coordination of care (as documented) at patient's floor/unit and/or counseling patient: Coding Level of Care Code 03548 Subseq Hosp Care Lvl 3 Diagnoses Closed pelvic fracture S32.9XXA Encounter type: initial encounter Pelvic bone location: unspecified part of pelvis Acetabular fracture S32.402A Encounter type: initial encounter Fracture alignment: nondisplaced Fracture type: closed Laterality: left Sublocation of acetabulum: unspecified portion of acetabulum Fracture of head of radius S52.125A Encounter type: initial encounter Fracture alignment: nondisplaced Fracture type: closed Laterality: left COVID-19 U07.1 ESRD (end stage renal disease) on dialysis N18.6; Z99.2 Atrial fibrillation I48.91 Open wound of right great toe S91.101A Necrotic ulceration of fingers I96 Trigeminal neuralgia G50.0 Hypoglycemia E16.2 Pressure ulcer of left foot, unstageable L89.890 (1) Closed pelvic fracture Encounter type: initial encounter Pelvic bone location: unspecified part of pelvis (2) Acetabular fracture Encounter type: initial encounter Fracture alignment: nondisplaced Fracture type: closed Laterality: left Sublocation of acetabulum: unspecified portion of acetabulum Qualified Code(s): S32.402A - Unspecified fracture of left acetabulum, initial encounter for closed fracture (3) Fracture of head of radius Encounter type: initial encounter Fracture alignment: nondisplaced Fracture type: closed Laterality: left Qualified Code(s): S52.125A - Nondisplaced fracture of head of left radius, initial encounter for closed fracture
[2021-08-01] MEDS: LOPERAMIDE HCL 2 MG CAP PO PRN ×2 (16:03→19:03)
[2021-08-01] MEDS ORDERED: AMPICILLIN/SULBACTAM SOD 1,500 MG in 0.9 % SODIUM CHLORIDE 100 ML IV SCH (17:00)
[2021-08-01] MEDS: NEPHROCAPS PO SCH (17:50)
[2021-08-01] MEDS: HYDROmorphone INJ 0.5 MG/0.5 ML SYR IV PRN (18:28)
[2021-08-02] MEDS: HYDROmorphone INJ 0.5 MG/0.5 ML SYR IV PRN (06:46)
[2021-08-02] MEDS: APIXABAN 2.5 MG TAB PO SCH ×2 (09:28→21:15)
[2021-08-02] MEDS: PANTOprazole 40 MG TAB PO SCH (09:28)
[2021-08-02] MEDS: lamoTRIgine 25 MG TAB PO SCH ×2 (09:28→21:19)
[2021-08-02] MEDS: BUMETANIDE 1 MG TAB PO SCH ×2 (09:28→18:32)
[2021-08-02] MEDS: CALCIUM ACETATE 667 MG CAP/TAB PO SCH ×2 (09:29→21:16)
[2021-08-02] MEDS: HYDROCODONE/ACETAMOPHEN 5/325MG TAB PO SCH ×3 (09:29→21:15)
[2021-08-02] MEDS: OXcarbazepine 150 MG TABLET PO SCH ×2 (09:30→21:13)
[2021-08-02] MEDS: LABETALOL HCL 200 MG TAB PO SCH ×3 (09:30→21:17)
[2021-08-02 12:04] LABS: Hematocrit (blood only) 31.3 % (37-47); Hemoglobin 9.7 g/dL (12.0-16.0); Mean Corpuscular Hemoglobin 31.8 pg (25-34); Mean Corpuscular Volume 102.6 fL (80-100); RDW Coefficient of Variation 17.7 % (11.5-14.5); RDW Standard Deviation 66.5 fL (36.4-46.3); Red Blood Count 3.05 M/uL (4.2-5.4); White Blood Count 4.26 K/uL (4.8-10.8)
[2021-08-02 12:14] LABS: Mean Platelet Volume 9.4 fL (7.4-10.4); Platelet Count 99 K/uL (130-400)
[2021-08-02 12:24] LABS: Basophils # (auto) 0.02 K/uL (0-0.2); Basophils % (auto) 0.5 %; Eosinophils # (auto) 0.06 K/uL (0-0.5); Eosinophils % (auto) 1.4 %; Immature Granulocytes # (auto) 0.01 K/uL (0.00-0.02); Immature Granulocytes % (auto) 0.2 %; Lymphocytes # (auto) 1.21 K/uL (1.2-3.4); Lymphocytes % (auto) 28.4 %; Monocytes # (auto) 0.47 K/uL (0.11-0.59); Neutrophils # (auto) 2.49 K/uL (1.4-6.5); Neutrophils % (auto) 58.5 %
[2021-08-02 12:39] LABS: BUN Creatinine Ratio 5.6 (10-20); Calcium 7.6 mg/dl (8.5-10.1); Est GFR (African American) 18.9 ml/min; Est GFR (Non-African American) 16.3 ml/min; Magnesium 1.6 mg/dl (1.7-2.4); Potassium 3.5 mmol/L (3.5-5.1)
[2021-08-02] MEDS: LOPERAMIDE HCL 2 MG CAP PO PRN ×2 (12:44→18:31)
--- NOTE | 2021-08-02 14:07 | Nephrology Progress Note ---
Date of Service August 02, 2021 Assessment & Plan (1) ESRD (end stage renal disease) on dialysis: Plan: HD MWF. Completed scheduled treatment yesterday with adequate clearance and UF. Tolerating HD well. AVF functioning appropriately. Next anticipated HD Wednesday but may delay until Wednesday to accommodate outpatient arrangements for isolation as needed. Unfortunately, [facility] was not able to provide isolation for COVID treatments and Kalyani will require transportation to [facility] for isolation treatments post discharge. (2) Anemia: Plan: Epogen [address] units with HD yesterday. Chronic, stable. (3) Hip fracture, left: Plan: No surgical intervention indicated. Medically stable for discharge per discussion with primary team. (4) COVID-19: Plan: Asymptomatic. Will require arrangements for isolation treatments post discharge. Appreciate case management assistance in this regard. Admission and Anticipated Discharge Date Admission Date: July 31, 2021 Subjective No acute events overnight. Completed HD yesterday without complications. Overall, Kalyani feels well. She hopes to be discharged home. Denies any symptoms of COVID. Review of Systems Review of Systems: All systems reviewed & are unremarkable except as noted in HPI & below Physical Exam Constitutional: well developed; no acute distress Eyes: no scleral abnormality and no corneal abnormality ENMT: Mouth: no oral mucosal abnormality and oral mucous membranes not dry Neck: normal visual inspection and trachea midline Respiratory: normal respiratory effort Auscultation: lungs clear to auscultation bilaterally Cardiovascular: Rate/Rhythm: regular rate Heart Sounds: normal S1 and normal S2 Extremities: + AV fistula; no edema Musculoskeletal: Extremities: no cyanosis and no clubbing Skin: normal turgor; no lesions Neurologic: Motor/Sensory: no tremor and no asterixis Psychiatric: Orientation: alert and oriented x 3 Results & Data ([facility]) Vital Signs (Past 12 Hours) Vital Signs Temp Pulse Resp BP Pulse Ox 08/02/21 08:19 37.1 C 67 18 115/58 L 96 Laboratory Results Laboratory Results - last 24 hr 08/01/21 08/02/21 08/02/21 16:23 03:37 11:41 WBC 4.26 L RBC 3.05 L Hgb 9.7 L Hct 31.3 L MCV 102.6 H MCH 31.8 MCHC 31.0 L RDW Std Deviation 66.5 H RDW Coeff of Alejandra 17.7 H Plt Count 99 L MPV 9.4 Immature Gran % (Auto) 0.2 Neut % (Auto) 58.5 Lymph % (Auto) 28.4 Catron % (Auto) 11.0 Eos % (Auto) 1.4 Baso % (Auto) 0.5 Neut # (Auto) 2.49 Lymph # (Auto) 1.21 Catron # (Auto) 0.47 Eos # (Auto) 0.06 Baso # (Auto) 0.02 Immature Gran # (Auto) 0.01 Sodium Potassium Chloride Carbon Dioxide Anion Gap BUN Creatinine Est Cr Clr Drug Dosing Est GFR ( Amer) Est GFR (Non-Af Amer) BUN/Creatinine Ratio Glucose POC Glucose 115 H 86 Calcium Magnesium 08/02/21 11:41 WBC RBC Hgb Hct MCV MCH MCHC RDW Std Deviation RDW Coeff of Alejandra Plt Count MPV Immature Gran % (Auto) Neut % (Auto) Lymph % (Auto) Catron % (Auto) Eos % (Auto) Baso % (Auto) Neut # (Auto) Lymph # (Auto) Catron # (Auto) Eos # (Auto) Baso # (Auto) Immature Gran # (Auto) Sodium 130 L Potassium 3.5 Chloride 92 L Carbon Dioxide 28 Anion Gap 10 BUN 15 Creatinine 2.69 H D Est Cr Clr Drug Dosing 15.0 Est GFR ( Amer) 18.9 Est GFR (Non-Af Amer) 16.3 BUN/Creatinine Ratio 5.6 L Glucose 97 POC Glucose Calcium 7.6 L Magnesium 1.6 L PG Care Time/CCT Total # of Minutes Spent Total Time Spent with Patient: Total time spent is greater than 50% in coordination of care (as documented) at patient's floor/unit and/or counseling patient: Coding Level of Care Code 14472 Subseq Hosp Care Lvl 3 Diagnoses ESRD (end stage renal disease) on dialysis N18.6; Z99.2 Anemia D64.9 Hip fracture, left S72.002A Encounter type: initial encounter Fracture type: closed COVID-19 U07.1 (1) Hip fracture, left Encounter type: initial encounter Fracture type: closed Qualified Code(s): S72.002A - Fracture of unspecified part of neck of left femur, initial encounter for closed fracture
[2021-08-02] MEDS ORDERED: MAGNESIUM SULFATE / D5W 1 GM/100 ML BAG IV ONE (15:03)
[2021-08-02] MEDS: NEPHROCAPS PO SCH (16:16)
--- NOTE | 2021-08-02 17:54 | Hospitalist Progress Note ---
Date of Service August 02, 2021 Assessment & Plan (1) Closed pelvic fracture: Plan: S/P mechanical fall related to not putting the brakes on her wheelchair 1. Acute mildly displaced fracture of the left inferior pubic ramus. 2. Confirmation of the subtle acute nondisplaced fracture involving the left superior pubic ramus and acetabular junction * Seen by Ortho. Appreciate assistance. Nonsurgical fractures * Pain currently controlled with Percocet. Tolerating pain medication without ill effects * PT consulted but patient adamantly refusing placement if deemed necessary * She is mostly wheelchair-bound. She is able to transfer with great assistance from her . Does have a Skye lift. (2) Acetabular fracture: Plan: As above (3) Fracture of head of radius: Plan: Sling applied in the EMD * Seen by orthopedics who reviewed imaging and does not believe there to be a radial head fracture given lack of pain/symptoms (4) COVID-19: Plan: Unsure where she is at the course of illness as she is asymptomatic * did receive monoclonal antibody treatment while in the ED * Continue her Eliquis for VTE * does not qualify for any treatment given lack of symptoms * SPO2 on RA 96% * Following CDC guidelines, patient should she remain asymptomatic would only need to quarantine for 5 days (would complete 08/04) (5) ESRD (end stage renal disease) on dialysis: Plan: Gets Dialysis , follows Dr. Hopkins * Nephrology on board-appreciate assistance * COVID positive which will cause issues with where she can continue her HD sessions until she completes quarantine (would need to go to the clinic in [place] but no transportation). If following the CDC guidelines and remains asymtpmatic, would be done with isolation on 08/04. If her current dialysis clinic following these recommendations, can then D/C to home 08/05 and resume dialysis as usual on Wednesday (08/06) * Continue renal caps and phosphate binder * Labetalol continued * Bumex 1mg BID continue for now follow fluid volume and renal indices (6) Hypoglycemia: Plan: * Blood sugar AM labs 08/01 was 42, repeat fingerstick was 52 * After eating, pt's blood sugar improved to 114 * no insulin or antihyperglycemic medications on board * Continue to monitor (7) Atrial fibrillation: Plan: Rate controlled - Continue Eliquis (8) Open wound of right great toe: Plan: * follows wound clinic * Known open wound of right great toe in addition to chronic osteomyelitis of the fourth toe on the right foot) * appears gangrenous and is for probable amputation in near future * wound care consult placed, follows wound clinic as an outpatient * Current wound culture showing Corynebacterium (on amoxil) - wound care dressings to include Luz Maria and an optilock or Zetuvit per wound clinic documentation (9) Necrotic ulceration of fingers: Plan: Follows with wound care and awaiting amputation - pending AV fistula repair - Wound care consultation appreciated (10) Trigeminal neuralgia: Plan: - Continue Lamotrigine - Continue Trileptal (11) Pressure ulcer of left foot, unstageable: Plan: - Pressure ulcer left foot, stage 3 per wound clinic note from 07/29 - Debridement performed in office on 07/29 and area cultured - Per culture report, GBS noted, sensitivities below - transition Unasyn to Amoxil with renal adjustment - Wound should be dressed with Luz Maria and an Optilock or Zetuvit as indicated by last wound clinic visit [address], [place] [address] / Director: Neo Jensen M.D. Clinical Laboratory Report Name: KEVIN JEWELL Acct: [id number] Status: REG AMBR : 1945 [facility] [place]: 07/29/21 Age: 76 Sex: F Dis Date: Loc: Wound Care Center Spec: [id number] Collected: 07/29/21 Received: 07/29/[address]: Ute Steiner CRNP Source: Foot,Left OV Order: Ordered: Surf Wnd Cul/Sm Comments: Comment L lateral foot Queries: Comment L lateral foot N Procedure Result Verified Site Gram Stain Final 07/29/21 Gram Stain Result Few Gram Positive Cocci Few WBCs Seen Surface Wound Culture Final 08/01/21 Organism 1 Group B Beta Strep Quantity Many Sens Sensitivities to Follow +MixWound Plus Low Counts of Probable Skin Martha Grp.B Strp RX M.I.C. --- --------- Ampicillin S 0.12 Azithromycin R >2 Cefepime S <=0.25 Cefotaxime S <=0.25 Ceftriaxone S <=0.25 Chloramphenicol S 4 Clindamycin## R Erythromycin R >0.5 Penicillin S 0.06 Vancomycin S 0.5 Plan: Plan of care discussed with Dr. Werner Admission and Anticipated Discharge Date Admission Date: July 31, 2021 Subjective Patient seen on daily rounds today. Vocalizes no significant complaints or concerns. In regards to Covid diagnosis, remains asymptomatic. Denies fevers, chills, nasal congestion, sore throat, cough, shortness of breath, nausea, vomiting. Her pelvic pain seems to be controlled with pain medication. She is tolerating the pain medication without ill effects. She did receive dialysis yesterday. Gets dialysis Mondays, Wednesdays and Fridays. Given the Covid diagnosis, this is difficult as she would need to utilize the Covid dialysis unit in [place] and she does not have [facility] for this. Case management working on this. Review of Systems Review of Systems: All systems reviewed and are unremarkable except as noted in HPI and below Denies fevers, chills, headache, nasal congestion, sore throat, cough, chest pain, shortness of breath, palpitations, orthopnea, PND, abdominal pain, nausea, vomiting, diarrhea, constipation, dysuria, hematuria, frequency, back pain, joint pain or swelling, easy bruising or bleeding Physical Exam Physical Exam: General: Resting comfortably in her hospital bed. NAD. HEENT: Head is AT/NC. Buccal mucosa is moist and pink Neck: No JVD. Negative hepatojugular reflex Cardiac: RRR with 2/6 PHILIPP Lungs: Distant but normal respiratory effort. No wheezes, rales or rhonchi Abdomen: Normoactive X4. Soft and nontender in all quadrants. Extremities: No peripheral clubbing cyanosis or edema Neuro: A&O X4. Cranial nerves II through XII are grossly intact. No focal neuro deficits Psych: Appropriate affect. Pleasant and cooperative Results & Data Results & Data ([facility]) Vital Signs (Past 12 Hours) Vital Signs Temp Pulse Resp BP Pulse Ox 08/02/21 16:06 37 C 63 18 109/61 95 08/02/21 08:19 37.1 C 67 18 115/58 L 96 Laboratory Results 08/02/21 11:41 08/02/21 11:41 PG Care Time/CCT Total # of Minutes Spent Total Time Spent with Patient: Total time spent is greater than 50% in coordination of care (as documented) at patient's floor/unit and/or counseling patient: Coding Level of Care Code 32707 Subseq Hosp Care Lvl 2 Diagnoses Closed pelvic fracture S32.9XXA Encounter type: initial encounter Pelvic bone location: unspecified part of pelvis Acetabular fracture S32.402A Encounter type: initial encounter Fracture alignment: nondisplaced Fracture type: closed Laterality: left Sublocation of acetabulum: unspecified portion of acetabulum Fracture of head of radius S52.125A Encounter type: initial encounter Fracture alignment: nondisplaced Fracture type: closed Laterality: left COVID-19 U07.1 Hypoglycemia E16.2 ESRD (end stage renal disease) on dialysis N18.6; Z99.2 Atrial fibrillation I48.91 Open wound of right great toe S91.101A Necrotic ulceration of fingers I96 Trigeminal neuralgia G50.0 Pressure ulcer of left foot, unstageable L89.890 (1) Closed pelvic fracture Encounter type: initial encounter Pelvic bone location: unspecified part of pelvis (2) Acetabular fracture Encounter type: initial encounter Fracture alignment: nondisplaced Fracture type: closed Laterality: left Sublocation of acetabulum: unspecified portion of acetabulum Qualified Code(s): S32.402A - Unspecified fracture of left acetabulum, initial encounter for closed fracture (3) Fracture of head of radius Encounter type: initial encounter Fracture alignment: nondisplaced Fracture type: closed Laterality: left Qualified Code(s): S52.125A - Nondisplaced fracture of head of left radius, initial encounter for closed fracture
[2021-08-02] MEDS: MELATONIN 3 MG TAB PO PRN (21:16)
[2021-08-02] MEDS: AMOXICILLIN 250 MG CAP PO SCH (21:16)
[2021-08-02] MEDS: MAGNESIUM OXIDE 400 MG TAB PO SCH (22:06)
[2021-08-03] MEDS: HYDROmorphone INJ 0.5 MG/0.5 ML SYR IV PRN ×3 (00:53→23:23)
[2021-08-03 08:03] LABS: Basophils # (auto) 0.01 K/uL (0-0.2); Basophils % (auto) 0.3 %; Eosinophils # (auto) 0.11 K/uL (0-0.5); Eosinophils % (auto) 2.9 %; Hematocrit (blood only) 29.9 % (37-47); Hemoglobin 9.6 g/dL (12.0-16.0); Immature Granulocytes # (auto) 0.01 K/uL (0.00-0.02); Immature Granulocytes % (auto) 0.3 %; Lymphocytes # (auto) 1.04 K/uL (1.2-3.4); Lymphocytes % (auto) 27.2 %; Mean Corpuscular Hemoglobin 31.7 pg (25-34); Mean Corpuscular Hgb Conc 32.1 g/dL (32-36); Mean Corpuscular Volume 98.7 fL (80-100); Mean Platelet Volume 9.5 fL (7.4-10.4); Monocytes # (auto) 0.25 K/uL (0.11-0.59); Monocytes % (auto) 6.5 %; Neutrophils % (auto) 62.8 %; Platelet Count 102 K/uL (130-400); RDW Coefficient of Variation 17.2 % (11.5-14.5); RDW Standard Deviation 61.6 fL (36.4-46.3); Red Blood Count 3.03 M/uL (4.2-5.4); White Blood Count 3.82 K/uL (4.8-10.8)
[2021-08-03] MEDS: BUMETANIDE 1 MG TAB PO SCH ×2 (08:17→17:51)
[2021-08-03] MEDS: HYDROCODONE/ACETAMOPHEN 5/325MG TAB PO SCH ×3 (08:17→22:10)
[2021-08-03] MEDS: PANTOprazole 40 MG TAB PO SCH (08:17)
[2021-08-03] MEDS: OXcarbazepine 150 MG TABLET PO SCH ×2 (08:18→21:58)
[2021-08-03] MEDS: LABETALOL HCL 200 MG TAB PO SCH (08:18)
[2021-08-03] MEDS: lamoTRIgine 25 MG TAB PO SCH ×2 (08:18→21:58)
[2021-08-03] MEDS: MAGNESIUM OXIDE 400 MG TAB PO SCH ×2 (08:18→21:58)
[2021-08-03] MEDS: CALCIUM ACETATE 667 MG CAP/TAB PO SCH ×2 (08:19→21:58)
[2021-08-03] MEDS: APIXABAN 2.5 MG TAB PO SCH ×2 (08:19→21:58)
[2021-08-03] MEDS: AMOXICILLIN 250 MG CAP PO SCH ×2 (08:19→21:58)
[2021-08-03 08:29] LABS: BUN Creatinine Ratio 6.4 (10-20); Calcium 7.5 mg/dl (8.5-10.1); Creatinine Clr Calc Pharmacy 10.8 ml/min; Est GFR (African American) 12.7 ml/min; Est GFR (Non-African American) 10.9 ml/min; Potassium 3.9 mmol/L (3.5-5.1)
--- NOTE | 2021-08-03 09:28 | Hospitalist Progress Note ---
Date of Service August 03, 2021 Assessment & Plan (1) Nausea & vomiting: Plan: * Mild nausea and one bout of emesis on the morning of 08/03 * There does seem to be several patients in the same wing with similar symptoms. Uncertain if this is a GI virus or if it is related to her hyponatremia of 126 today * Antiemetics as needed * No abdominal pain at this time * Will monitor (2) Hyponatremia: Plan: * Tends to be chronic for patient (runs in the low 130's) * Not highly suspicious that this is contributing to her nausea as her sodium was 122 upon arrival and she was not complaining of nausea or vomiting then; however, could be contributing * Appears euvolemic clinically. Not having respiratory symptoms and does not appear to need urgent dialysis or added diuresis. Did reach out to nephrology who agrees no other treatment at this time * Will obtain urine Osmo. Patient does not appear to be volume contracted clinically * Will continue to monitor (3) Closed pelvic fracture: Plan: presenting complaint was pelvic pain S/P mechanical fall related to not putting the brakes on her wheelchair 1. Acute mildly displaced fracture of the left inferior pubic ramus. 2. Confirmation of the subtle acute nondisplaced fracture involving the left superior pubic ramus and acetabular junction * Seen by Ortho--> nonsurgical Appreciate assistance * Pain currently controlled with Percocet. Tolerating pain medication without ill effects * PT consulted but patient adamantly refusing placement if deemed necessary (hasn't been seen yet by PT/OT) (She is mostly wheelchair-bound. She is able to transfer with great assistance from her . 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 Hopkins * Nephrology on board-appreciate assistance * COVID positive which is posing issues with where she can continue her HD sessions until she completes quarantine (would need to go to the clinic in [place] but no transportation). If following the CDC guidelines and remains asymptomatic, would be done with isolation on 08/04. If her current dialysis clinic following these recommendations, can D/C to home 08/05 and resume dialysis as usual on Wednesday (08/06). CM on board and will reach out to supervisor billposting tomorrow * Continue renal caps and phosphate binder * Labetalol continued * Bumex 1mg BID continue for now follow fluid volume and renal indices * AVF with appropriate bruit and thrill but seems to have hematoma around the fistula. Will obtain US to assess this and AVF. For dialysis tomorrow (mgmt per Nephro) (8) Hypoglycemia: Plan: * Blood sugar AM labs 08/01 was 42, repeat fingerstick was 52 * After eating, pt's blood sugar improved to 114. * no insulin or antihyperglycemic medications on board * Continue to monitor. BS today was 91 (9) Atrial fibrillation: Plan: Rate controlled - Continue Eliquis (10) Open wound of right great toe: Plan: * follows wound clinic * Known open wound of right great toe in addition to chronic osteomyelitis of the fourth toe on the right foot * appears gangrenous and is for probable amputation in near future * wound care consult placed, follows wound clinic as an outpatient * Current wound culture showing Corynebacterium (on amoxil) - wound care dressings to include Luz Maria and an optilock or Zetuvit per wound clinic documentation (11) Necrotic ulceration of fingers: Plan: Follows with wound care and awaiting amputation - to have arteriography with intervention of the left arm to improve flow in her bypass prior to amputation of the distal digit and then to FU with hand specialist - Wound care consultation appreciated (12) Trigeminal neuralgia: Plan: - Continue Lamotrigine - Continue Trileptal (13) Pressure ulcer of left foot, unstageable: Plan: - Pressure ulcer left foot, stage 3 per wound clinic note from 07/29 - Debridement performed in office on 07/29 and area cultured - Per culture report, GBS noted, sensitivities below - transition Unasyn to Amoxil with renal adjustment - Wound should be dressed with Luz Maria and an Optilock or Zetuvit as indicated by last wound clinic visit [facility] [address] [place] [address] / Director: Neo Jensen M.D. Clinical Laboratory Report Name: KEVIN JEWELL Acct: [id number] Status: ESTELL[place] 1945 [facility] [place]: [place] Age: 76 Sex: F Dis Date: Loc: Wound Care Center Spec: [id number] Collected: 07/29/21 Received: 07/29/[address]: Ute Steiner CRNP Source: Foot,Left OV Order: Ordered: Surf Wnd Cul/Sm Comments: Comment L lateral foot Queries: Comment L lateral foot Procedure Result Verified Site Gram Stain Final 07/29/21 Gram Stain Result Few Gram Positive Cocci Few WBCs Seen Surface Wound Culture Final 08/01/21 Organism 1 Group B Beta Strep Quantity Many Sens Sensitivities to Follow +MixWound Plus Low Counts of Probable Skin Martha Grp.B Strp RX M.I.C. --- --------- Ampicillin S 0.12 Azithromycin R >2 Cefepime S <=0.25 Cefotaxime S <=0.25 Ceftriaxone S <=0.25 Chloramphenicol S 4 Clindamycin## R Erythromycin R >0.5 Penicillin S 0.06 Vancomycin S 0.5 Plan: Plan of care discussed with Dr. Werner Admission and Anticipated Discharge Date Admission Date: July 31, 2021 Subjective Patient seen on daily rounds today. Complaining of slight nausea. Had one small bout of emesis this morning. Reports this is not unusual for her. Does get this often and typically takes Phenergan. Her sodium level is slightly low this morning at 126 (was 130 yesterday). To have dialysis tomorrow. Otherwise she is not confused, she denies shortness of breath, she is not having significant itching of the skin and has no other symptoms of uremia. Review of Systems Review of Systems: All systems reviewed and are unremarkable except as noted in HPI and below Denies fevers, chills, headache, nasal congestion, sore throat, cough, chest pain, shortness of breath, palpitations, orthopnea, PND, abdominal pain, diarrhea, constipation, dysuria, hematuria, frequency, back pain, joint pain or swelling, easy bruising or bleeding, skin lesions or rashes. Physical Exam Physical Exam: General: Resting comfortably in her hospital bed. Does not appear ill or toxic. NAD. HEENT: Head is AT/NC. Buccal mucosa is moist and pink Neck: No JVD. Negative hepatojugular reflex Cardiac: Distant heart sounds with 1/6 PHILIPP Lungs: CTA without W/R/R Abdomen: Normoactive X4. Soft and nontender in all quadrants. Extremities: Left upper extremity appears to have concern for hematoma just around the fistula. Otherwise there is a distinguishable bruit and thrill to the fistula Neuro: A&O X4. Cranial nerves II through XII are grossly intact. No focal neuro deficits Skin: Skin ashy. Necrosis of the distal left third digit (chronic) Psych: Appropriate affect. Pleasant and cooperative Results & Data Results & Data ([facility]) Vital Signs (Past 12 Hours) Vital Signs Temp Pulse Resp Pulse Ox 08/03/21 08:11 37 C 64 18 94 Laboratory Results 08/03/21 07:28 08/03/21 07:28 PG Care Time/CCT Total # of Minutes Spent Total Time Spent with Patient: Total time spent is greater than 50% in coordination of care (as documented) at patient's floor/unit and/or counseling patient: Coding Level of Care Code 61620 Subseq Hosp Care Lvl 3 Diagnoses Closed pelvic fracture S32.9XXA Encounter type: initial encounter Pelvic bone location: unspecified part of pelvis Acetabular fracture S32.402A Encounter type: initial encounter Fracture alignment: nondisplaced Fracture type: closed Laterality: left Sublocation of acetabulum: unspecified portion of acetabulum Fracture of head of radius S52.125A Encounter type: initial encounter Fracture alignment: nondisplaced Fracture type: closed Laterality: left COVID-19 U07.1 ESRD (end stage renal disease) on dialysis N18.6; Z99.2 Hypoglycemia E16.2 Atrial fibrillation I48.91 Open wound of right great toe S91.101A Necrotic ulceration of fingers I96 Trigeminal neuralgia G50.0 Pressure ulcer of left foot, unstageable L89.890 Hyponatremia E87.1 Nausea & vomiting R11.2 (1) Closed pelvic fracture Encounter type: initial encounter Pelvic bone location: unspecified part of pelvis (2) Acetabular fracture Encounter type: initial encounter Fracture alignment: nondisplaced Fracture type: closed Laterality: left Sublocation of acetabulum: unspecified portion of acetabulum Qualified Code(s): S32.402A - Unspecified fracture of left acetabulum, initial encounter for closed fracture (3) Fracture of head of radius Encounter type: initial encounter Fracture alignment: nondisplaced Fracture type: closed Laterality: left Qualified Code(s): S52.125A - Nondisplaced fracture of head of left radius, initial encounter for closed fracture
[2021-08-03] MEDS ORDERED: ONDANSETRON INJ 2 MG/ML 2 ML VIAL IV PRN (10:31)
--- NOTE | 2021-08-03 13:42 | Nephrology Progress Note ---
Date of Service August 03, 2021 Assessment & Plan (1) ESRD (end stage renal disease) on dialysis: Plan: HD MWF. Clearance acceptable. Volume status controlled. AVF functioning appropriately. Preliminary orders for treatment tomorrow entered into EMR. Unfortunately, [facility] was not able to provide isolation for COVID treatments. Kalyani would require transportation to [facility] for isolation treatments post discharge. Anticipate follow up in this regard tomorrow. (2) Anemia: Plan: Epogen 36427 units with HD 08/02. Chronic, stable. (3) Hip fracture, left: Plan: No surgical intervention indicated. PT assessment completed this AM. Anticipate discharge home. (4) COVID-19: Plan: Asymptomatic. Will likely require arrangements for isolation treatments post discharge. Appreciate case management assistance in this regard. (5) Nausea & vomiting: Plan: Acute manifestation of chronic problem. Labetalol should be given with food per home regimen. I have held the medication for now given low BP while inpatient. Will monitor for potential need to restart medication. (6) Hyponatremia: Plan: 1 L daily fluid restriction enforced. Admission and Anticipated Discharge Date Admission Date: July 31, 2021 Subjective No acute events overnight. Nausea noted this AM. Denies pain. Completed PT at the bedside. Review of Systems Review of Systems: All systems reviewed & are unremarkable except as noted in HPI & below Physical Exam Constitutional: well developed; no acute distress Eyes: no scleral abnormality and no corneal abnormality ENMT: Mouth: no oral mucosal abnormality and oral mucous membranes not dry Neck: normal visual inspection and trachea midline Respiratory: normal respiratory effort Auscultation: lungs clear to auscultation bilaterally Cardiovascular: Rate/Rhythm: regular rate Heart Sounds: normal S1 and normal S2 Extremities: + AV fistula; no edema Musculoskeletal: Extremities: no cyanosis and no clubbing Skin: normal turgor; no lesions Neurologic: Motor/Sensory: no tremor and no asterixis Psychiatric: Orientation: alert and oriented x 3 Results & Data ([facility]) Vital Signs (Past 12 Hours) Vital Signs Temp Pulse Resp Pulse Ox 08/03/21 08:11 37 C 64 18 94 Laboratory Results Laboratory Results - last 24 hr 08/03/21 08/03/21 07:28 07:28 WBC 3.82 L RBC 3.03 L Hgb 9.6 L Hct 29.9 L MCV 98.7 MCH 31.7 MCHC 32.1 RDW Std Deviation 61.6 H RDW Coeff of Alejandra 17.2 H Plt Count 102 L MPV 9.5 Immature Gran % (Auto) 0.3 Neut % (Auto) 62.8 Lymph % (Auto) 27.2 Harvey % (Auto) 6.5 Eos % (Auto) 2.9 Baso % (Auto) 0.3 Neut # (Auto) 2.40 Lymph # (Auto) 1.04 L Harvey # (Auto) 0.25 Eos # (Auto) 0.11 Baso # (Auto) 0.01 Immature Gran # (Auto) 0.01 Sodium 126 L Potassium 3.9 Chloride 90 L Carbon Dioxide 27 Anion Gap 9 BUN 24 H Creatinine 3.74 H D Est Cr Clr Drug Dosing 10.8 Est GFR ( Amer) 12.7 Est GFR (Non-Af Amer) 10.9 BUN/Creatinine Ratio 6.4 L Glucose 91 Calcium 7.5 L Magnesium 2.0 PG Care Time/CCT Total # of Minutes Spent Total Time Spent with Patient: Total time spent is greater than 50% in coordination of care (as documented) at patient's floor/unit and/or counseling patient: Coding Level of Care Code 48375 Subseq Hosp Care Lvl 3 Diagnoses ESRD (end stage renal disease) on dialysis N18.6; Z99.2 Anemia D64.9 Hip fracture, left S72.002A Encounter type: initial encounter Fracture type: closed COVID-19 U07.1 Nausea & vomiting R11.2 Hyponatremia E87.1 (1) Hip fracture, left Encounter type: initial encounter Fracture type: closed Qualified Code(s): S72.002A - Fracture of unspecified part of neck of left femur, initial encounter for closed fracture
--- NOTE | 2021-08-03 14:07 | Ultrasound Report ---
US extremity non-vascular ltd CLINICAL HISTORY: ? hematoma of left upper extremity- near fistula. Left upper arm swelling. COMPARISON STUDY: None. FINDINGS: Real-time sonographic imaging of the left upper arm was performed with escrow representative image s submitted. There is a thick-walled complex collection within the left upper arm adjacent to the fis van. This measures approximately 3.8 x 1.4 x 0.7 cm. No color flow identified. IMPRESSION: A nonspecific thick-walled complex collection within the left upper arm adjacent to the fistula which measures 3.8 x 1.4 x 0.7 cm. This is within the deep soft tissues. This favors a hemato ma. Superimposed infection would be impossible to exclude by imaging alone. ACT 112: Negative or not required by law. Electronically signed by: Marko Wooten M.D. 08/03/2021 2:05 PM
[2021-08-03] MEDS: NEPHROCAPS PO SCH (17:51)
[2021-08-03] MEDS: MELATONIN 3 MG TAB PO PRN (22:10)
[2021-08-04 08:04] LABS: Hematocrit (blood only) 30.6 % (37-47); Hemoglobin 9.7 g/dL (12.0-16.0); Mean Corpuscular Hemoglobin 31.2 pg (25-34); Mean Corpuscular Hgb Conc 31.7 g/dL (32-36); Mean Corpuscular Volume 98.4 fL (80-100); RDW Coefficient of Variation 17.3 % (11.5-14.5); RDW Standard Deviation 62.2 fL (36.4-46.3); Red Blood Count 3.11 M/uL (4.2-5.4); White Blood Count 3.99 K/uL (4.8-10.8)
[2021-08-04 08:08] LABS: Mean Platelet Volume 9.7 fL (7.4-10.4); Platelet Count 94 K/uL (130-400)
[2021-08-04] MEDS: MAGNESIUM OXIDE 400 MG TAB PO SCH ×2 (08:08→21:41)
[2021-08-04] MEDS: PANTOprazole 40 MG TAB PO SCH (08:09)
[2021-08-04] MEDS: OXcarbazepine 150 MG TABLET PO SCH ×2 (08:09→21:42)
[2021-08-04] MEDS: AMOXICILLIN 250 MG CAP PO SCH (08:09)
[2021-08-04] MEDS: APIXABAN 2.5 MG TAB PO SCH ×2 (08:10→21:38)
[2021-08-04] MEDS: lamoTRIgine 25 MG TAB PO SCH ×2 (08:11→21:40)
[2021-08-04] MEDS: CALCIUM ACETATE 667 MG CAP/TAB PO SCH ×2 (08:11→21:39)
[2021-08-04] MEDS: BUMETANIDE 1 MG TAB PO SCH ×2 (08:11→16:29)
[2021-08-04 08:22] LABS: Basophils # (auto) 0.01 K/uL (0-0.2); Basophils % (auto) 0.3 %; Eosinophils # (auto) 0.12 K/uL (0-0.5); Immature Granulocytes # (auto) 0.01 K/uL (0.00-0.02); Immature Granulocytes % (auto) 0.3 %; Lymphocytes # (auto) 1.21 K/uL (1.2-3.4); Lymphocytes % (auto) 30.3 %; Monocytes # (auto) 0.28 K/uL (0.11-0.59); Neutrophils # (auto) 2.36 K/uL (1.4-6.5); Neutrophils % (auto) 59.1 %
[2021-08-04] MEDS: HYDROCODONE/ACETAMOPHEN 5/325MG TAB PO SCH ×3 (08:24→21:40)
[2021-08-04 08:49] LABS: Albumin Level 2.5 gm/dl (3.4-5.0); BUN Creatinine Ratio 6.8 (10-20); Bilirubin,Total 0.3 mg/dl (0.2-1.0); Calcium 7.7 mg/dl (8.5-10.1); Creatinine Clr Calc Pharmacy 8.2 ml/min; Est GFR (African American) 8.9 ml/min; Est GFR (Non-African American) 7.7 ml/min; Globulin 2.6 gm/dl (2.5-4.0); Magnesium 2.1 mg/dl (1.7-2.4); Total Protein 5.1 gm/dl (6.0-8.3)
[2021-08-04] MEDS ORDERED: ALUMINUM/MAGNESIUM SUSP 30 ML UDC PO PRN (10:37)
[2021-08-04] MEDS: HYDROmorphone INJ 0.5 MG/0.5 ML SYR IV PRN ×2 (11:23→23:25)
--- NOTE | 2021-08-04 12:48 | Nephrology Progress Note ---
Date of Service August 04, 2021 Assessment & Plan (1) ESRD (end stage renal disease) on dialysis: Plan: HD MWF. Orders for HD today entered into EMR and reviewed with dialysis nurse. Ab acceptable. Clearances at goal. UF goal 2 L. BP acceptable. AVF functioning well. Unfortunately, [facility] was not able to provide isolation for COVID treatments. Kalyani will require a negative COVID test prior to returning to unit. She will require transportation to [facility] for isolation treatments post discharge which LUKE from [facility] is working to help arrange for . (2) Anemia: Plan: Epogen 83494 units with HD 08/02. Chronic, stable. (3) Hip fracture, left: Plan: No surgical intervention indicated. PT assessment completed yesterday. Anticipate discharge home. Would like to confirm weight bearing status with ortho. Kalyani has not been 100% dependent on Skye lift prior to admission. She did stand to pivot on leg from transitions at dialysis. (4) COVID-19: Plan: Remains asymptomatic. Will likely require arrangements for isolation treatments post discharge. Appreciate case management assistance in this regard. (5) Nausea & vomiting: Plan: Acute manifestation of chronic problem. Labetalol has been held and BP remains acceptable off the medication. Will monitor for potential need to restart medication. (6) Hyponatremia: Plan: 1 L daily fluid restriction enforced. Admission and Anticipated Discharge Date Admission Date: July 31, 2021 Subjective No acute events overnight. Kalyani was seen and evaluated during HD this AM. AM nausea persists. Kalyani denies pain. Overall, she feels reasonably well and hopes to be discharged home. Review of Systems Review of Systems: All systems reviewed & are unremarkable except as noted in HPI & below Physical Exam Constitutional: well developed; no acute distress Eyes: no scleral abnormality and no corneal abnormality ENMT: Mouth: no oral mucosal abnormality and oral mucous membranes not dry Neck: normal visual inspection and trachea midline Respiratory: normal respiratory effort Auscultation: lungs clear to auscultation bilaterally Cardiovascular: Rate/Rhythm: regular rate Heart Sounds: normal S1 and normal S2 Extremities: + AV fistula; no edema Musculoskeletal: Extremities: no cyanosis and no clubbing Skin: normal turgor; no lesions Neurologic: Motor/Sensory: no tremor and no asterixis Psychiatric: Orientation: alert and oriented x 3 Results & Data ([place]) Vital Signs (Past 12 Hours) Vital Signs Temp Pulse Pulse Pulse Resp BP BP 08/04/21 12:30 64 111/62 08/04/21 12:00 64 96/52 L 08/04/21 11:30 63 104/53 L 08/04/21 11:00 82 100/46 L 08/04/21 10:30 59 L 113/84 08/04/21 10:00 67 98/51 L 08/04/21 09:30 72 132/60 08/04/21 09:00 85 114/67 08/04/21 08:45 37 C 62 08/04/21 07:17 36.7 C 68 18 128/75 Pulse Ox 08/04/21 12:30 08/04/21 12:00 08/04/21 11:30 08/04/21 11:00 08/04/21 10:30 08/04/21 10:00 08/04/21 09:30 08/04/21 09:00 08/04/21 08:45 08/04/21 07:17 96 Laboratory Results Laboratory Results - last 24 hr 08/04/21 08/04/21 08/04/21 07:41 07:41 07:41 WBC 3.99 L RBC 3.11 L Hgb 9.7 L Hct 30.6 L MCV 98.4 MCH 31.2 MCHC 31.7 L RDW Std Deviation 62.2 H RDW Coeff of Alejandra 17.3 H Plt Count 94 L MPV 9.7 Immature Gran % (Auto) 0.3 Neut % (Auto) 59.1 Lymph % (Auto) 30.3 Winkler % (Auto) 7.0 Eos % (Auto) 3.0 Baso % (Auto) 0.3 Neut # (Auto) 2.36 Lymph # (Auto) 1.21 Winkler # (Auto) 0.28 Eos # (Auto) 0.12 Baso # (Auto) 0.01 Immature Gran # (Auto) 0.01 Sodium 127 L Potassium 4.0 Chloride 90 L Carbon Dioxide 25 Anion Gap 12 H BUN 34 H Creatinine 5.00 H* D Est Cr Clr Drug Dosing 8.2 Est GFR ( Amer) 8.9 Est GFR (Non-Af Amer) 7.7 BUN/Creatinine Ratio 6.8 L Glucose 85 Calcium 7.7 L Magnesium 2.1 Total Bilirubin 0.3 AST 17 ALT 12 Alkaline Phosphatase 129 H Total Protein 5.1 L Albumin 2.5 L Globulin 2.6 Albumin/Globulin Ratio 1.0 Cortisol AM Sample 16.79 PG Care Time/CCT Total # of Minutes Spent Total Time Spent with Patient: Total time spent is greater than 50% in coordination of care (as documented) at patient's floor/unit and/or counseling patient: Coding Level of Care Code 54356 Subseq Hosp Care Lvl 3 Diagnoses ESRD (end stage renal disease) on dialysis N18.6; Z99.2 Anemia D64.9 Hip fracture, left S72.002A Encounter type: initial encounter Fracture type: closed COVID-19 U07.1 Nausea & vomiting R11.2 Hyponatremia E87.1 (1) Hip fracture, left Encounter type: initial encounter Fracture type: closed Qualified Code(s): S72.002A - Fracture of unspecified part of neck of left femur, initial encounter for closed fracture
--- NOTE | 2021-08-04 16:06 | Hospitalist Progress Note ---
Date of Service August 04, 2021 Assessment & Plan (1) Nausea & vomiting: Plan: * Mild nausea and one bout of emesis on the morning of 08/03 * Exact etiology unclear: There does seem to be several patients in the same wing with similar symptoms. Uncertain if this is a GI virus. ? d/t hyponatremia of 127. ? dyspepsia (as now with vague c/o reflux) * Antiemetics as needed * No abdominal pain at this time * continue PPI and add pepcid * Will monitor (2) Hyponatremia: Plan: * Tends to be chronic for patient (runs in the low 130's) * Not highly suspicious that this is contributing to her nausea as her sodium was 122 upon arrival and she was not complaining of nausea or vomiting then; however, could be contributing * cortisol level normal * pt aneuric so unable to obtain urine Osmo. * could be hypervolemic-- receiving UF now. follow labs closely (3) Closed pelvic fracture: Plan: presenting complaint was pelvic pain S/P mechanical fall related to not putting the brakes on her wheelchair 1. Acute mildly displaced fracture of the left inferior pubic ramus. 2. Confirmation of the subtle acute nondisplaced fracture involving the left superior pubic ramus and acetabular junction * Seen by Ortho--> nonsurgical Appreciate assistance * Pain currently controlled with Percocet. Tolerating pain medication without ill effects * PT consulted but patient adamantly refusing placement if deemed necessary (hasn't been seen yet by PT/OT) (She is mostly wheelchair-bound. She is able to transfer with great assistance from her . 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 Hopkins * Nephrology on board-appreciate assistance * COVID positive which is posing issues with where she can continue her HD ses sions until she completes quarantine (would need to go to the clinic in [place] but no transportation). If following the CDC guidelines and remains asymptomatic, would be done with isolation on 08/04. Her current dialysis clinic will resume care (prior to the 10 days of isolation) pending a negative covid test (repeat today) * Continue renal caps and phosphate binder * Labetalol continued * Bumex 1mg BID continue for now follow fluid volume and renal indices * AVF with appropriate bruit and thrill but seems to have hematoma around the fistula--> this was evaluated by US and not new. seen in May and has since decreased in size * for 2L UF today. Nephro on board-- appreciate assistance (8) Hypoglycemia: Plan: * Blood sugar AM labs 08/01 was 42, repeat fingerstick was 52 * After eating, pt's blood sugar improved to 114. * no insulin or antihyperglycemic medications on board * Continue to monitor. BS has been stable * did order cortisol level and is normal (9) Atrial fibrillation: Plan: Rate controlled - Continue Eliquis (10) Open wound of right great toe: Plan: * follows wound clinic * Known open wound of right great toe in addition to chronic osteomyelitis of the fourth toe on the right foot * appears gangrenous and is for probable amputation in near future * wound care consult placed, follows wound clinic as an outpatient * Current wound culture showing Corynebacterium (on amoxil)--with renal adjustment (to complete 08/08) - wound care dressings to include Luz Maria and an optilock or Zetuvit per wound clinic documentation (11) Necrotic ulceration of fingers: Plan: Follows with wound care and awaiting amputation - to have arteriography with intervention of the left arm to improve flow in her bypass prior to amputation of the distal digit and then to FU with hand specialist - Wound care consultation appreciated (12) Trigeminal neuralgia: Plan: - Continue Lamotrigine - Continue Trileptal (13) Pressure ulcer of left foot, unstageable: Plan: - Pressure ulcer left foot, stage 3 per wound clinic note from 07/29 - Debridement performed in office on 07/29 and area cultured - Per culture report, GBS noted, sensitivities below - transition Unasyn to Amoxil with renal adjustment (to complete 08/08) - Wound should be dressed with Luz Maria and an Optilock or Zetuvit as indicated by last wound clinic visit [address] [place] [address] / Director: Neo Jensen M.D. Clinical Laboratory Report Name: KEVIN JEWELL Evelyn Acct: [id number] Status: ESTELLA FARIA : 1945 [facility] Date: 07/29/21 Age: 76 Sex: F Dis Date: Loc: Wound Care Center Spec: [id number] Collected: 07/29/21 Received: 07/29/[address]: Ute Steiner CRNP Source: Foot,Left OV Order: Ordered: Surf Wnd Cul/Sm Comments: Comment L lateral foot Queries: Comment L lateral foot Procedure Result Verified Site Gram Stain Final 07/29/21 Gram Stain Result Few Gram Positive Cocci Few WBCs Seen Surface Wound Culture Final 08/01/21 Organism 1 Group B Beta Strep Quantity Many Sens Sensitivities to Follow +MixWound Plus Low Counts of Probable Skin Martha Grp.B Strp RX M.I.C. --- --------- Ampicillin S 0.12 Azithromycin R >2 Cefepime S <=0.25 Cefotaxime S <=0.25 Ceftriaxone S <=0.25 Chloramphenicol S 4 Clindamycin## R Erythromycin R >0.5 Penicillin S 0.06 Vancomycin S 0.5 Plan: Plan of care discussed with Dr. Werner. Further orders as warranted Admission and Anticipated Discharge Date Admission Date: July 31, 2021 Subjective Patient seen on daily rounds today. Currently receiving dialysis and tolerating it well. Goal is for 2 L today. She remains asymptomatic in regards to Covid. Denies fevers, chills, nasal congestion, sore throat, loss of taste/smell, cough, shortness of breath. In addition, no GI symptoms. Nursing voices no complaints or concerns. Ultrasound of the left upper extremity shows hematoma but improved from prior ultrasound done in May cortisol level drawn given hyponatremia and nausea. This has since come back negative Review of Systems Review of Systems: All systems reviewed and are unremarkable except as noted in HPI and below Denies fevers, chills, headache, nasal congestion, sore throat, cough, chest pain, shortness of breath, palpitations, orthopnea, PND, abdominal pain, nausea, vomiting, diarrhea, constipation, dysuria, hematuria, frequency, back pain, joint pain or swelling, easy bruising or bleeding, skin lesions or rashes. Physical Exam Physical Exam: General: Resting comfortably in her hospital bed. Does not appear ill or toxic. NAD. HEENT: Head is AT/NC. Buccal mucosa is moist and pink Neck: No JVD. Negative hepatojugular reflex Cardiac: Distant heart sounds with 1/6 PHILIPP Lungs: CTA without W/R/R Abdomen: Normoactive X4. Soft and nontender in all quadrants. Extremities: Left upper extremity appears to have concern for hematoma just ar ound the fistula. Otherwise there is a distinguishable bruit and thrill to the fistula Neuro: A&O X4. Cranial nerves II through XII are grossly intact. No focal neuro deficits Skin: Skin ashy. Necrosis of the distal left third digit (chronic) Psych: Appropriate affect. Pleasant and cooperative Results & Data Results & Data ([facility]) Vital Signs (Past 12 Hours) Vital Signs Temp Pulse Pulse Pulse Resp BP BP 08/04/21 14:51 36.9 C 65 16 112/55 L 08/04/21 12:40 37 C 64 119/64 08/04/21 12:30 64 111/62 08/04/21 12:00 64 96/52 L 08/04/21 11:30 63 104/53 L 08/04/21 11:00 82 100/46 L 08/04/21 10:30 59 L 113/84 08/04/21 10:00 67 98/51 L 08/04/21 09:30 72 132/60 08/04/21 09:00 85 114/67 08/04/21 08:45 37 C 62 08/04/21 07:17 36.7 C 68 18 128/75 Pulse Ox 08/04/21 14:51 94 08/04/21 12:40 08/04/21 12:30 08/04/21 12:00 08/04/21 11:30 08/04/21 11:00 08/04/21 10:30 08/04/21 10:00 08/04/21 09:30 08/04/21 09:00 08/04/21 08:45 08/04/21 07:17 96 Laboratory Results 08/04/21 07:41 08/04/21 07:41 PG Care Time/CCT Total # of Minutes Spent Total Time Spent with Patient: Total time spent is greater than 50% in coordination of care (as documented) at patient's floor/unit and/or counseling patient: Coding Level of Care Code 27480 Subseq Hosp Care Lvl 2 Diagnoses Nausea & vomiting R11.2 Hyponatremia E87.1 Closed pelvic fracture S32.9XXA Encounter type: initial encounter Pelvic bone location: unspecified part of pelvis Acetabular fracture S32.402A Encounter type: initial encounter Fracture alignment: nondisplaced Fracture type: closed Laterality: left Sublocation of acetabulum: unspecified portion of acetabulum Fracture of head of radius S52.125A Encounter type: initial encounter Fracture alignment: nondisplaced Fracture type: closed Laterality: left COVID-19 U07.1 ESRD (end stage renal disease) on dialysis N18.6; Z99.2 Hypoglycemia E16.2 Atrial fibrillation I48.91 Open wound of right great toe S91.101A Necrotic ulceration of fingers I96 Trigeminal neuralgia G50.0 Pressure ulcer of left foot, unstageable L89.890 (1) Closed pelvic fracture Encounter type: initial encounter Pelvic bone location: unspecified part of pelvis (2) Acetabular fracture Encounter type: initial encounter Fracture alignment: nondisplaced Fracture type: closed Laterality: left Sublocation of acetabulum: unspecified portion of acetabulum Qualified Code(s): S32.402A - Unspecified fracture of left acetabulum, initial encounter for closed fracture (3) Fracture of head of radius Encounter type: initial encounter Fracture alignment: nondisplaced Fracture type: closed Laterality: left Qualified Code(s): S52.125A - Nondisplaced fracture of head of left radius, initial encounter for closed fracture
[2021-08-04] MEDS: NEPHROCAPS PO SCH (16:29)
[2021-08-04] MEDS ORDERED: AMOXICILLIN 500 MG CAP PO SCH (21:00)
[2021-08-04] MEDS: FAMOTIDINE 20 MG TAB PO SCH (21:39)
[2021-08-04] MEDS: MELATONIN 3 MG TAB PO PRN (23:31)
[2021-08-05] MEDS: HYDROmorphone INJ 0.5 MG/0.5 ML SYR IV PRN ×4 (06:16→22:43)
[2021-08-05 06:46] LABS: Hematocrit (blood only) 29.9 % (37-47); Hemoglobin 9.7 g/dL (12.0-16.0); Mean Corpuscular Hemoglobin 32.9 pg (25-34); Mean Corpuscular Hgb Conc 32.4 g/dL (32-36); Mean Corpuscular Volume 101.4 fL (80-100); Platelet Count 113 K/uL (130-400); RDW Coefficient of Variation 17.5 % (11.5-14.5); RDW Standard Deviation 64.2 fL (36.4-46.3); Red Blood Count 2.95 M/uL (4.2-5.4); White Blood Count 3.43 K/uL (4.8-10.8)
[2021-08-05 07:07] LABS: Albumin Level 2.6 gm/dl (3.4-5.0); BUN Creatinine Ratio 5.9 (10-20); Bilirubin,Total 0.4 mg/dl (0.2-1.0); Calcium 8.7 mg/dl (8.5-10.1); Creatinine Clr Calc Pharmacy 13.3 ml/min; Est GFR (African American) 17.3 ml/min; Est GFR (Non-African American) 14.9 ml/min; Globulin 2.7 gm/dl (2.5-4.0); Potassium 4.1 mmol/L (3.5-5.1); Total Protein 5.3 gm/dl (6.0-8.3)
[2021-08-05] MEDS: APIXABAN 2.5 MG TAB PO SCH ×2 (08:36→21:27)
[2021-08-05] MEDS: HYDROCODONE/ACETAMOPHEN 5/325MG TAB PO SCH ×3 (08:36→21:28)
[2021-08-05] MEDS: PANTOprazole 40 MG TAB PO SCH (08:37)
[2021-08-05] MEDS: BUMETANIDE 1 MG TAB PO SCH ×2 (08:37→16:25)
[2021-08-05] MEDS: MAGNESIUM OXIDE 400 MG TAB PO SCH ×2 (08:38→21:25)
[2021-08-05] MEDS: lamoTRIgine 25 MG TAB PO SCH ×2 (08:38→21:26)
[2021-08-05] MEDS: CALCIUM ACETATE 667 MG CAP/TAB PO SCH ×2 (08:39→21:26)
[2021-08-05] MEDS: OXcarbazepine 150 MG TABLET PO SCH ×2 (08:39→21:27)
--- NOTE | 2021-08-05 10:58 | Hospitalist Progress Note ---
Date of Service August 05, 2021 Assessment & Plan (1) Closed pelvic fracture: Plan: presenting complaint was pelvic pain S/P mechanical fall related to not putting the brakes on her wheelchair 1. Acute mildly displaced fracture of the left inferior pubic ramus. 2. Confirmation of the subtle acute nondisplaced fracture involving the left superior pubic ramus and acetabular junction * Seen by Ortho--> nonsurgical Appreciate assistance * Pain currently controlled with Mineral (which she takes chronically) * vitamin D level missing-- will obtain * PT consulted. Patient has been nonambulatory for over a year. She has a wheelchair and a Skye lift. Typically can transfer. Adamantly refusing placement. 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 Unfortunately, this is posing an issue with patient returning to her dialysis unit as they want her to be isolated for 14 days or have 2 - [id number] Covid tests. She was tested yesterday in hopes that it would come back negative but still came back positive. She may have viral shedding that is detectable for up to 3 months. That being said, they do have a clinic in [place] that they would be agreeable for her to receive dialysis at (that is a Covid dialysis clinic); however, given her nonambulatory state she receives transportation and this transportation department is unwilling to transport her to [place]. At any rate, given her hospitalized state and infection control recommendations, she can be pulled off of isolation precaution on day #11 pending she remains asymptomatic (5) Nausea & vomiting: Plan: * Mild nausea and one bout of emesis on the morning of 08/03 * Exact etiology unclear: There does seem to be several patients in the same wing with similar symptoms.? GI virus. ? d/t hyponatremia of 127. ? dyspepsia (as now with vague c/o reflux), ?uremia, ?medication induced (abx and pain m edication) * Antiemetics as needed * No abdominal pain at this time * continue PPI and pepcid * continue monitor (6) Hyponatremia: Plan: * Tends to be chronic for patient (runs in the low 130's) * Not highly suspicious that this is contributing to her nausea as her sodium was 122 upon arrival and she was not complaining of nausea or vomiting then; however, could be a player * cortisol level normal * pt aneuric so unable to obtain urine Osmo. * likely related to hypervolemic-- as Na++ improves following dialysis sessions (7) ESRD (end stage renal disease) on dialysis: Plan: Gets Dialysis , follows Dr. Hopkins * Nephrology on board-appreciate assistance in mgmt of volume status * COVID positive which is posing issues with where she can continue her [place] (until she completes quarantine--would need to go to the clinic in [place] but no transportation available). Her current clinic is requesting will not allow her back until 14 days or 2 neg back to back covid tests (repeated yesterday and still positive). Patient may still viral shed ( v irus) that can be picked up with these very sensitive tests for 3 months. * Continue renal caps and phosphate binder * 2L UF done 08/01 and 08/04 * epo 20,000U on 08/01 (8) Hypoglycemia: Plan: * Blood sugar AM labs 08/01 was 42, repeat fingerstick was 52 * After eating, pt's blood sugar improved to 114. * no insulin or antihyperglycemic medications on board * Continue to monitor. BS has been stable * cortisol level ordered (given N/V, hyponatremia and low BS): normal (9) Atrial fibrillation: Plan: Rate controlled - Continue Eliquis (10) Open wound of right great toe: Plan: * follows wound clinic * Known open wound of right great toe in addition to chronic osteomyelitis of the fourth toe on the right foot * appears gangrenous and is for probable amputation in near future * wound care consult placed, follows wound clinic as an outpatient * Current wound culture showing Corynebacterium (on amoxil)--with renal adjustment (to complete 08/08) - wound care dressings to include Luz Maria and an optilock or Zetuvit per wound clinic documentation (11) Necrotic ulceration of fingers: Plan: Follows with wound care and awaiting amputation - to have arteriography with intervention of the left arm to improve flow in her bypass prior to amputation of the distal digit and then to FU with hand specialist - Wound care consultation appreciated (12) Trigeminal neuralgia: Plan: - Continue Lamotrigine - Continue Trileptal (13) Pressure ulcer of left foot, unstageable: Plan: - Pressure ulcer left foot, stage 3 per wound clinic note from 07/29 - Debridement performed in office on 07/29 and area cultured - Per culture report, GBS noted, sensitivities below - transition Unasyn to Amoxil with renal adjustment (to complete 08/08) - Wound should be dressed with Luz Maria and an Optilock or Zetuvit as indicated by last wound clinic visit [address], [place] [address] / Director: Neo Jensen M.D. Clinical Laboratory Report Name: KEVIN JEWELL Evelyn Acct: [id number] Status: [place] 1945 [facility] [place]: [place]29[place] Age: 76 Sex: F Dis Date: Loc: Wound Care Center Spec: [id number] Collected: 07/29/21 Received: 07/29/[address]: Ute Steiner CRNP Source: Foot,Left OV Order: Ordered: Surf Wnd Cul/Sm Comments: Comment L lateral foot Queries: Comment L lateral foot Procedure Result Verified Site Gram Stain Final 07/29/21 Gram Stain Result Few Gram Positive Cocci Few WBCs Seen Surface Wound Culture Final 08/01/21 Organism 1 Group B Beta Strep Quantity Many Sens Sensitivities to Follow +MixWound Plus Low Counts of Probable Skin Martha Grp.B Strp RX M.I.C. --- --------- Ampicillin S 0.12 Azithromycin R >2 Cefepime S <=0.25 Cefotaxime S <=0.25 Ceftriaxone S <=0.25 Chloramphenicol S 4 Clindamycin## R Erythromycin R >0.5 Penicillin S 0.06 Vancomycin S 0.5 Plan: Plan of care to be discussed with Dr. Maxwell. Further orders as warranted Admission and Anticipated Discharge Date Admission Date: July 31, 2021 Supervising Physician Co-Signing Physician Notes Attending Attestation - Chart reviewed, care plan d/w PA Perla Riley. I agree with the smith components of her documentation. Tin Maxwell MD Subjective Patient seen on daily rounds today. Vocalizes no complaints or concerns. Still with some mild intermittent nausea but overall improved. Tolerated dialysis yesterday without difficulties. Repeat Covid test was positive and thus her current dialysis unit will not allow her back there until she has isolated for 14 days or has 2 - [id number] Covid tests. There is a clinic in [place]; however, her is unable to transport her. She typically gets transportation to and from her dialysis clinic but transportation is unable to drive her to [place]. Otherwise, she vocalizes no significant complaints or concerns. Nursing voices no complaints or concerns. Review of Systems Review of Systems: All systems reviewed and are unremarkable except as noted in HPI and below Denies fevers, chills, headache, nasal congestion, sore throat, cough, chest pain, shortness of breath, palpitations, orthopnea, PND, abdominal pain, vomiting, diarrhea, constipation, dysuria, hematuria, frequency, back pain, joint pain or swelling, easy bruising or bleeding, skin lesions or rashes. Physical Exam Physical Exam: General: Resting comfortably in her hospital bed (currently on the bed garcia). Does not appear ill or toxic. NAD. HEENT: Head is AT/NC. Buccal mucosa is moist and pink Neck: No JVD. Negative hepatojugular reflex Cardiac: Distant heart sounds with 1/6 PHILIPP Lungs: CTA without W/R/R Abdomen: Normoactive X4. Soft and nontender in all quadrants. Extremities:Left arm with AVF- intact. Surrounding hematoma is stable. There is a distinguishable bruit and thrill to the fistula Neuro: A&O X4. Cranial nerves II through XII are grossly intact. No focal neuro deficits Skin: Skin ashy. Necrosis of the distal left third digit (chronic) Psych: Appropriate affect. Pleasant and cooperative Results & Data Results & Data ([facility]) Vital Signs (Past 12 Hours) Vital Signs Temp Pulse Resp BP Pulse Ox 08/05/21 08:51 37.0 C 73 17 132/76 96 08/05/21 07:45 36.9 C 78 16 153/80 H 94 Laboratory Results 08/05/21 05:48 08/05/21 05:48 PG Care Time/CCT Total # of Minutes Spent Total Time Spent with Patient: Total time spent is greater than 50% in coordination of care (as documented) at patient's floor/unit and/or counseling patient: Coding Level of Care Code 10191 Subseq Hosp Care Lvl 2 Diagnoses Nausea & vomiting R11.2 Hyponatremia E87.1 Closed pelvic fracture S32.9XXA Encounter type: initial encounter Pelvic bone location: unspecified part of pelvis Acetabular fracture S32.402A Encounter type: initial encounter Fracture alignment: nondisplaced Fracture type: closed Laterality: left Sublocation of acetabulum: unspecified portion of acetabulum Fracture of head of radius S52.125A Encounter type: initial encounter Fracture alignment: nondisplaced Fracture type: closed Laterality: left COVID-19 U07.1 ESRD (end stage renal disease) on dialysis N18.6; Z99.2 Hypoglycemia E16.2 Atrial fibrillation I48.91 Open wound of right great toe S91.101A Necrotic ulceration of fingers I96 Trigeminal neuralgia G50.0 Pressure ulcer of left foot, unstageable L89.890 (1) Closed pelvic fracture Encounter type: initial encounter Pelvic bone location: unspecified part of pelvis (2) Acetabular fracture Encounter type: initial encounter Fracture alignment: nondisplaced Fracture type: closed Laterality: left Sublocation of acetabulum: unspecified portion of acetabulum Qualified Code(s): S32.402A - Unspecified fracture of left acetabulum, initial encounter for closed fracture (3) Fracture of head of radius Encounter type: initial encounter Fracture alignment: nondisplaced Fracture type: closed Laterality: left Qualified Code(s): S52.125A - Nondisplaced fracture of head of left radius, initial encounter for closed fracture
--- NOTE | 2021-08-05 10:58 | Nephrology Progress Note ---
Date of Service August 05, 2021 Assessment & Plan (1) ESRD (end stage renal disease) on dialysis: Plan: HD MWF. Completed treatment yesterday with adequate clearance. UF goal achieved. Tolerated treatment well. Unfortunately, [facility] was not able to provide isolation for COVID treatments. COVID testing yesterday remains +. She will require transportation to [facility] for isolation treatments post discharge which SW from [facility] is working to help arrange for . (2) Anemia: Plan: Epogen 41434 units with HD 08/02. Chronic, stable. (3) Hip fracture, left: Plan: No surgical intervention indicated. PT assessment completed. Anticipate discharge home. Full weight bearing as tolerated per ortho. (4) COVID-19: Plan: Remains asymptomatic. Will require arrangements for isolation treatments post discharge. I discussed concerns with the manager intensive care unit at [facility] today. Appreciate case management assistance in this regard. (5) Nausea & vomiting: Plan: Acute manifestation of chronic problem. Labetalol has been held and BP remains acceptable off the medication. Will monitor for potential need to restart medication. (6) Hyponatremia: Plan: 1 L daily fluid restriction enforced. Admission and Anticipated Discharge Date Admission Date: July 31, 2021 Subjective No acute events overnight. Some nausea intermittently persists but overall improved. Tolerated HD well yesterday. No complications with dialysis. Frustrated about continued hospitalization and dietary restrictions. Review of Systems Review of Systems: All systems reviewed & are unremarkable except as noted in HPI & below Physical Exam Constitutional: well developed; no acute distress Eyes: no scleral abnormality and no corneal abnormality ENMT: Mouth: no oral mucosal abnormality and oral mucous membranes not dry Neck: normal visual inspection and trachea midline Respiratory: normal respiratory effort Auscultation: lungs clear to auscultation bilaterally Cardiovascular: Rate/Rhythm: regular rate Heart Sounds: normal S1 and normal S2 Extremities: + AV fistula; no edema Musculoskeletal: Extremities: no cyanosis and no clubbing Skin: normal turgor; no lesions Neurologic: Motor/Sensory: no tremor and no asterixis Psychiatric: Orientation: alert and oriented x 3 Results & Data ([facility]) Vital Signs (Past 12 Hours) Vital Signs Temp Pulse Resp BP Pulse Ox 08/05/21 08:51 37.0 C 73 17 132/76 96 08/05/21 07:45 36.9 C 78 16 153/80 H 94 Laboratory Results Laboratory Results - last 24 hr 08/04/21 08/05/21 08/05/21 Unknown 05:48 05:48 WBC 3.43 L RBC 2.95 L Hgb 9.7 L Hct 29.9 L MCV 101.4 H MCH 32.9 MCHC 32.4 RDW Std Deviation 64.2 H RDW Coeff of Alejandra 17.5 H Plt Count 113 L MPV 9.0 Sodium 133 L Potassium 4.1 Chloride 98 Carbon Dioxide 27 Anion Gap 8 BUN 17 Creatinine 2.89 H D Est Cr Clr Drug Dosing 13.3 Est GFR ( Amer) 17.3 Est GFR (Non-Af Amer) 14.9 BUN/Creatinine Ratio 5.9 L Glucose 78 Calcium 8.7 Magnesium 2.0 Total Bilirubin 0.4 AST 16 ALT 11 Alkaline Phosphatase 131 H Total Protein 5.3 L Albumin 2.6 L Globulin 2.7 Albumin/Globulin Ratio 1.0 SARS-CoV-2, RNA, NAAT POSITIVE A* PG Care Time/CCT Total # of Minutes Spent Total Time Spent with Patient: Total time spent is greater than 50% in coordination of care (as documented) at patient's floor/unit and/or counseling patient: Coding Level of Care Code 04360 Subseq Hosp Care Lvl 3 Diagnoses ESRD (end stage renal disease) on dialysis N18.6; Z99.2 Anemia D64.9 Hip fracture, left S72.002A Encounter type: initial encounter Fracture type: closed COVID-19 U07.1 Nausea & vomiting R11.2 Hyponatremia E87.1 (1) Hip fracture, left Encounter type: initial encounter Fracture type: closed Qualified Code(s): S72.002A - Fracture of unspecified part of neck of left femur, initial encounter for closed fracture
[2021-08-05] MEDS: NEPHROCAPS PO SCH (16:25)
[2021-08-05] MEDS: FAMOTIDINE 20 MG TAB PO SCH (21:25)
[2021-08-05] MEDS: AMOXICILLIN 500 MG CAP PO SCH (21:27)
[2021-08-05] MEDS: MELATONIN 3 MG TAB PO PRN (23:16)
[2021-08-06] MEDS: OXcarbazepine 150 MG TABLET PO SCH (08:49)
[2021-08-06] MEDS: AMOXICILLIN 500 MG CAP PO SCH (08:50)
[2021-08-06] MEDS: CALCIUM ACETATE 667 MG CAP/TAB PO SCH (08:51)
[2021-08-06] MEDS: PANTOprazole 40 MG TAB PO SCH (08:51)
[2021-08-06] MEDS: APIXABAN 2.5 MG TAB PO SCH (08:51)
[2021-08-06] MEDS: lamoTRIgine 25 MG TAB PO SCH (08:52)
[2021-08-06] MEDS: BUMETANIDE 1 MG TAB PO SCH (08:52)
[2021-08-06] MEDS: MAGNESIUM OXIDE 400 MG TAB PO SCH (08:52)
[2021-08-06] MEDS: HYDROCODONE/ACETAMOPHEN 5/325MG TAB PO SCH ×2 (09:00→14:15)
--- NOTE | 2021-08-06 10:30 | Nephrology Progress Note ---
Date of Service August 06, 2021 Assessment & Plan (1) ESRD (end stage renal disease) on dialysis: Plan: Dialysis held today. Clearance has been acceptable. Electrolytes controlled. Volume status euvolemic. Orders for HD at [facility] have been provided. Next treatment tomorrow. Anticipate discharge today. I reviewed the plan with case management. Kalyani was informed to position herself on her [place] pad for transportation for dialysis tomorrow. (2) Anemia: Plan: Epogen 96857 units with HD 08/02. Chronic, stable. (3) Hip fracture, left: Plan: No surgical intervention indicated. PT assessment completed. Anticipate discharge home. Full weight bearing as tolerated per ortho. (4) COVID-19: Plan: Remains asymptomatic. Will be transported to [facility] for isolation treatments TTS post discharge pending negative test or 14 days. (5) Nausea & vomiting: Plan: Acute manifestation of chronic problem. Labetalol has been held and BP remains acceptable off the medication. Will monitor for potential need to restart medication. (6) Hyponatremia: Plan: 1 L daily fluid restriction enforced. Admission and Anticipated Discharge Date Admission Date: July 31, 2021 Subjective No acute events overnight. Kalyani feels well this AM. Discharge plan reviewed with staff at the dialysis unit and the patient. Orders for treatment provided to [facility]. Review of Systems Review of Systems: All systems reviewed & are unremarkable except as noted in HPI & below Physical Exam Constitutional: well developed; no acute distress Eyes: no scleral abnormality and no corneal abnormality ENMT: Mouth: no oral mucosal abnormality and oral mucous membranes not dry Neck: normal visual inspection and trachea midline Respiratory: normal respiratory effort Auscultation: lungs clear to auscultation bilaterally Cardiovascular: Rate/Rhythm: regular rate Heart Sounds: normal S1 and normal S2 Extremities: + AV fistula; no edema Musculoskeletal: Extremities: no cyanosis and no clubbing Skin: normal turgor; no lesions Neurologic: Motor/Sensory: no tremor and no asterixis Psychiatric: Orientation: alert and oriented x 3 Results & Data ([facility]) Vital Signs (Past 12 Hours) Vital Signs Temp Pulse Resp BP Pulse Ox 08/06/21 07:03 36.8 C 65 16 156/65 H 95 08/05/21 22:40 36.8 C 76 20 150/73 H 96 Laboratory Results Laboratory Results - last 24 hr 08/05/21 12:10 25-OH Vitamin D Total 55.9 PG Care Time/CCT Total # of Minutes Spent Total Time Spent with Patient: Total time spent is greater than 50% in coordination of care (as documented) at patient's floor/unit and/or counseling patient: Coding Level of Care Code 04063 Subseq Hosp Care Lvl 3 Diagnoses ESRD (end stage renal disease) on dialysis N18.6; Z99.2 Anemia D64.9 Hip fracture, left S72.002A Encounter type: initial encounter Fracture type: closed COVID-19 U07.1 Nausea & vomiting R11.2 Hyponatremia E87.1 (1) Hip fracture, left Encounter type: initial encounter Fracture type: closed Qualified Code(s): S72.002A - Fracture of unspecified part of neck of left femur, initial encounter for closed fracture
[2021-08-06] MEDS: HYDROmorphone INJ 0.5 MG/0.5 ML SYR IV PRN (11:23)
--- NOTE | 2021-08-06 15:18 | Discharge Summary ---
Date of Service August 06, 2021 Admission HPI Per Admitting Provider 76 YOF with past medical history of: ESRD on dialysis (MWF), osteomyelitis, chronic lower foot wound, amputation of right metatarsal, wheel chair bound, AFIB( on Apixaban), trigeminal neuralgia, HTN, GERD, LVH, Broken left arm, right shoulder rotator cuff injury. Patient comes to the [facility] today s/p falling off the edge of her wheelchair on to her buttocks. Patient reports she was trying to bend over to strip picker some clothes and did not lock her wheelchair. The chair rolled back and she fell. Patient was also subsequently found to have COVID 19, she received dose of monoclonals in [facility]. She had multiple imaging modalities performed for her fall. 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 She was given morphine for her pain control and is comfortable at this time. She is relatively asymptomatic from her COVID except noting some increase in fatigue starting yesterday. The patient lives at home with her and her primary tool for getting her up from bed to chair is a Skye lift. She is followed closely by vascular and wound care for her lower extremity ulcerations. She had wound culture of the right toe performed in [facility] that was negative for gram stain and previous was cultured for CONS in May and her left foot was noted group B beta strep. She has not been on antibiotics for this and did have vascular consultation performed and is pending follow up with podiatry for possible amputation. As she has broken her left arm prior and has reduced function and stephanieley will have right arm in sling, and with her pubic ramus fracture, she will likely need rehab and/or home health to assist with her progression. She will think about rehab options but would really like to go home with PT if an option. Will admit- orthopaedics consultation for further evaluation/management. Pain control. She meets no further criteria for COVID treatment. Follow her oxygenation levels and inflammatory markers. She gets Dialysis on MWF. Nephrology has been consulted. She has had her COVID vaccine and booster; her COVID Test on admission is: Positive Principal Diagnosis 1. Pelvic fracture 2. Acetabular fracture 3. End-stage renal diseaseon dialysis 4. Chronic wounds of the lower extremitiesfoot wound infected (group B strep) Discharge Exam General: Resting comfortably in her hospital bed (currently on the bed garcia). Does not appear ill or toxic. NAD. HEENT: Head is AT/NC. Buccal mucosa is moist and pink Neck: No JVD. Negative hepatojugular reflex Cardiac: Distant heart sounds with 1/6 PHILIPP Lungs: CTA without W/R/R Abdomen: Normoactive X4. Soft and nontender in all quadrants. Extremities:Left arm with AVF- intact. Surrounding hematoma is stable. There is a distinguishable bruit and thrill to the fistula Neuro: A&O X4. Cranial nerves II through XII are grossly intact. No focal neuro deficits Skin: Skin ashy. Necrosis of the distal left third digit (chronic) Psych: Appropriate affect. Pleasant and cooperative Discharge Data Allergies Allergy/AdvReac Type Severity Reaction Status Date / Time metformin Allergy Unknown does not Verified 07/31/21 15:07 remember pioglitazone Allergy Unknown ? NOT SURE Verified 07/31/21 15:07 rosiglitazone Allergy Unknown NOT SURE Verified 07/31/21 15:07 simvastatin Allergy Unknown "did not Verified 07/31/21 15:07 feel well while taking" ANGEL Inhibitors AdvReac Mild Cough Verified 07/31/21 15:07 oxycodone AdvReac Mild Nausea Verified 07/31/21 15:07 Jxflwyr-KRT-GaB Reductase AdvReac Mild LEGS HURT Verified 07/31/21 15:07 Inhibitor [Fzahbzh-Qbs-Aft Reductase Inhibitor] suture AdvReac Mild Catgut - Verified 07/31/21 15:07 slow healing, inflammed tissue escitalopram AdvReac Unknown Unknown Verified 07/31/21 15:07 homatropine AdvReac Unknown Unknown Verified 07/31/21 15:07 [From Hycodan (with homatropin)] Consultations 07/31/21 14:57 ED Decision to Admit Stat 07/31/21 18:37 Consult Nephrology Routine Consult Orthopedic Surgery Routine Ordered Studies 07/31/21 12:03 CT head/brain wo con Stat 07/31/21 13:54 CT pelvis wo con Stat 08/03/21 10:32 US extremity non-vascular ltd Routine Hospital Course (1) Closed pelvic fracture: presenting complaint was pelvic pain S/P mechanical fall related to not putting the brakes on her wheelchair 1. Acute mildly displaced fracture of the left inferior pubic ramus. 2. Confirmation of the subtle acute nondisplaced fracture involving the left superior pubic ramus and acetabular junction * Seen by Ortho--> nonsurgical Appreciate assistance * Pain currently controlled with [place] (which she takes chronically) * vitamin D level missing-- will obtain * PT consulted. Patient has been nonambulatory for over a year. She has a wheelchair and a Skye lift. Typically can transfer. Adamantly refusing placement. Therapy feels that she can safely return to her home (2) Acetabular fracture: As above (3) Fracture of head of radius: Sling applied in the EMD * Seen by orthopedics who reviewed imaging and does not believe there to be a radial head fracture given lack of pain/symptoms and recommended no sling (4) COVID-19: Unsure where she is at the course of illness as she is asymptomatic * did receive monoclonal antibody treatment while in the ED * Continue her Eliquis for VTE * does not qualify for any treatment given lack of symptoms * SPO2 on RA 96% * Unfortunately, given the Covid diagnosis this has posed problems with her outpatient dialysis. She has remained in the hospital while attempting to find transportation to the [facility] (which is the [facility] dialysis clinic). Patient uses public transportation. This has been difficult but transportation finally arranged. * Per CDC guidelines, patient would need to isolate for 5 days from her positive test given she is asymptomatic; however, she reports that her current dialysis clinic is making her have 2 negative tests or quarantine for 14 days prior to resumption (5) Nausea & vomiting: * Mild nausea and one bout of emesis on the morning of 08/03 * Exact etiology unclear: There does seem to be several patients in the same wing with similar symptoms.? GI virus. ? d/t hyponatremia of 127. ? dyspepsia (as now with vague c/o reflux), ?uremia, ?medication induced (abx and pain medication) * Antiemetics as needed (she has them at home) * No abdominal pain at this time * continue PPI * Chronic nausea is not unusual for patient but seems to fluctuate in its severity. (6) Hyponatremia: * Tends to be chronic for patient (runs in the low 130's) * Not highly suspicious that this is contributing to her nausea as her sodium was 122 upon arrival and she was not complaining of nausea or vomiting then; however, could be a player * cortisol level normal * pt aneuric so unable to obtain urine Osmo. * likely related to hypervolemic-- as Na++ improves following dialysis sessions (7) ESRD (end stage renal disease) on dialysis: Gets Dialysis --, follows Dr. Hopkins * Nephrology on board-appreciate assistance in mgmt of volume status * COVID positive which is posing issues with where she can continue her HD sessions (until she completes quarantine--would need to go to the clinic in [place] but no transportation available). Her current clinic is requesting will not allow her back until 14 days or 2 neg back to back covid tests (repeated 08/04 and still positive). Patient may still viral shed ( virus) that can be picked up with these very sensitive tests for 3 months. * Continue renal caps and phosphate binder * 2L UF done 08/01 and 08/04 * epo 20,000U on 08/01 * to have dialysis (outpatient) tomorrow--Nephrology on managing (8) Hypoglycemia: * Blood sugar AM labs 08/01 was 42, repeat fingerstick was 52 * After eating, pt's blood sugar improved to 114. * no insulin or antihyperglycemic medications on board * Continue to monitor. BS has been stable * cortisol level ordered (given N/V, hyponatremia and low BS): normal * no subsequent episodes of hypoglycemia (9) Atrial fibrillation: Rate controlled - Continue Eliquis (10) Open wound of right great toe: * follows wound clinic * Known open wound of right great toe in addition to chronic osteomyelitis of the fourth toe on the right foot * appears gangrenous and is for probable amputation in near future * wound care followed patient while in house (wound care dressings to include Luz Maria and an optilock or Zetuvit) and to follow up wound clinic as an OP * Current wound culture showing Corynebacterium (on amoxil)--with renal adjustment (to complete 08/08) (11) Necrotic ulceration of fingers: Follows with wound care and awaiting amputation - to have arteriography with intervention of the left arm to improve flow in her bypass prior to amputation of the distal digit and then to FU with hand specialist - Wound care consultation appreciated. Follow up with Wound clinic as an OP (12) Trigeminal neuralgia: - Continue Lamotrigine - Continue Trileptal (13) Pressure ulcer of left foot, unstageable: - Pressure ulcer left foot, stage 3 per wound clinic note from 07/29 - Debridement performed in office on 07/29 and area cultured - Per culture report, GBS noted, sensitivities below - transition Unasyn to Amoxil with renal adjustment (to complete 08/08) - Wound should be dressed with Luz Maria and an Optilock or Zetuvit as indicated [place] [address] / Director: Neo Jensen M.D. Clinical Laboratory Report Name: KEVIN JEWELL Acct: [id number] Status: ESTELLA FARIA : 1945 [facility] [place]: 07/29/21 Age: 76 Sex: F Dis Date: Loc: Wound Care Center Spec: [id number] Collected: 07/29/21 Received: 07/29/[address]: Ute Steiner CRNP Source: Foot,Left OV Order: Ordered: Surf Wnd Cul/Sm Comments: Comment L lateral foot Queries: Comment L lateral foot Procedure Result Verified Site Gram Stain Final 07/29/21 Gram Stain Result Few Gram Positive Cocci Few WBCs Seen Surface Wound Culture Final 08/01/21 Organism 1 Group B Beta Strep Quantity Many Sens Sensitivities to Follow +MixWound Plus Low Counts of Probable Skin Martha Grp.B Strp RX M.I.C. --- --------- Ampicillin S 0.12 Azithromycin R >2 Cefepime S <=0.25 Cefotaxime S <=0.25 Ceftriaxone S <=0.25 Chloramphenicol S 4 Clindamycin## R Erythromycin R >0.5 Penicillin S 0.06 Vancomycin S 0.5 Plan of care to be discussed with Dr. Maxwell. Further orders as warranted Total Time Total Time Spent Total Time Spent (In Minutes): 45 minutes including time spent with patient, discussion with nephrology, discussion with attending provider, discussion with case management, preparation of documentation and coordination of care. Discharge Plan Discharge Items Patient Disposition: Home - Self-Care Reason For Visit: FALL/PELVIC RAMUS FRX RIGHT ACETABULUM FRX, COVID Discharge Diagnosis: 1. Pelvic Fracture 2. Asymptomatic Covid 3. End Stage Renal Disease 4. Multiple Wounds (toes and foot) Activity: Resume your previous activity Non-emergency contact: Primary Care Provider, Specialist and Count Room Clerk Call non-emergency contact if: you have any medication questions and your symptoms worsen Follow-up/Referrals: Roderick Espino MD [Primary Care Provider] - 08/18/21 11:00 am Kandis Mulligan DO, FACEP [Physician] - 08/07/21 9:00 am (wound care center) Estuardo Peraza DO [Physician] - 08/20/21 11:50 am Diet: Dialysis Renal Fluids: 1000ml (4 cups) Addtl Attending Provider Instructions: Diet: Renal (low potassium), fluid restricted (1L/day) Activity: weight bear as tolerated (no restrictions with the pelvis fracture) You presented the emergency department with pelvic pain following a ground-level fall. You were found to have a fracture of your pelvis (this is a nonsurgical fracture and needs to heal on its own). In addition, there was a question of a radial head fracture (in your arm); however, the orthopedic surgeon does not believe there to be a fracture here given your lack of pain. This type of fracture is treated with pain control. You are already taking Kit Carson at home. Continue this as needed. Fortunately, you have not complained of any significant pain during this hospitalization. You did have a Covid test as part of our protocol with admissions. You tested positive. Fortunately had been asymptomatic (meaning no symptoms). Given the CDC guidelines, you needed to isolate for 5 days. The Covid positive test has created issues with dialysis. You need to go to [facility] into the Covid dialysis clinic. You remained in the hospital to receive dialysis while attempting to set up transportation. Fortunately, this has been successfully set up. You will have dialysis tomorrow at 6 AM. The transportation van will pick you up at 445 tomorrow morning. You have multiple wound (as you are aware of that you follow the wound clinic for). Follow-up with the wound clinic. The one wound on your foot was noted to be mildly infected and you were started on antibiotics for this. Continue/complete full course of antibiotics (Amoxil) with last dose to complete on 08/08 Follow up Recommendations: 1. Follow-up with the dialysis clinic tomorrow 2. Follow-up with vascular next week as scheduled for planned procedure 3. Follow-up with wound clinic 4. Follow-up with orthopedics: 2 weeks 5. Follow-up with PCP: 7 to 10 days 6. Return to the ED for any new or worsening symptoms Pending Studies at Discharge: No Stand-Alone Forms: My [facility] Medications and DC Order Prescriptions: New amoxicillin 500 mg Capsule 500 mg PO BID Qty: 5 RF: 0 Continued bumetanide 2 mg tablet 2 mg PO BID Qty: 180 RF: 1 omeprazole 40 mg capsule,delayed release(DR/EC) 40 mg PO QAM Qty: 90 RF: 3 labetalol 200 mg tablet See Rx Instructions .ROUTE .COMPLEX Qty: 230 RF: 2 hydrocodone-acetaminophen 5-325 mg tablet 1 tab PO TID Qty: 90 RF: 0 apixaban 2.5 mg tablet 2.5 mg PO BID Qty: 90 RF: 3 lamotrigine [Lamictal] 25 mg tablet 25 mg PO BID Qty: 60 RF: 11 Trileptal 300 mg tablet 150 - 300 mg PO .COMPLEX 30 Days Qty: 45 RF: 11 biotin 1 mg capsule 1 mg PO BID RF: 0 ProRenal 8 mg iron-800 mcg-1,000 unit tablet 2 tab PO QDD RF: 0 cetirizine [Zyrtec] 10 mg Tablet 10 mg PO QPM RF: 0 Probiotic 3 billion cell capsule 3,000 mmu cells PO BIDM RF: 0 calcium acetate(phosphat bind) 667 mg capsule 667 mg PO BID RF: 0 loperamide [Imodium A-D] 2 mg capsule 2 mg PO UD PRN (Reason: Diarrhea) RF: 0 aloe vera Gel 1 applic TOPICAL WK RF: 0 promethazine 25 mg tablet 25 mg PO UD PRN (Reason: Nausea) RF: 0 PreserVision AREDS [id number] Capsule 1 cap PO BID RF: 0 diphenhydramine-acetaminophen [Tylenol PM Extra Strength] 25-500 mg Tablet 1 tab PO HS RF: 0 Discharge Orders: Discharge Order (Routine); Ordered 08/06/21 Ordered By: Perla Stock/Other Patient Handouts: ED Pelvic Fracture Admission Data Admit Date/Time: 07/31/21 15:53 Attending Provider: Tin Maxwell Admit Provider: Tin Morris Primary Care Provider: Roderick Espino Other Providers: Tin Morris ; Debbie Hopkins ; Estuardo Peraza ; [facility] Healthcare Other Interventions: Discharge Summary Assessment (RN) Last Done: 08/06/21 12:57 Supervising Physician Co-Signing Physician Notes Attending Attestation and Discharge Note - Pt seen/examined, Chart reviewed, care plan d/w PA Perla Riley. I agree with the smith components of her documentation. 76yo female with ESRD, on HD - managed by [facility] Nephrology - along with PAD who presented after having had a fall with resulting multiple pelvic fractures. Incidentally was found to be positive for COVID-19 infection. Following admission she was treated for her pelvic fractures with pain meds, etc. Orthopedics was consulted who treated all fractures nonoperatively. Placed in isolation for COVID-19 but did not require any specific therapy. Due to the COVID-19 positivity this was creating difficulties for outpatient hemodialysis needs. Fortunately there is a dialysis unit in [place] that can accommodate patients with COVID-19. Preparations were made for her HD post-discharge with assistance by Dr Whitley from [facility] Nephrology. Discharge exam - gen - NAD, chronically ill appearing mouth - MMM neck - no JVD heart - irregular, s1 s2 lungs - CTA b/l, no rales abd - soft NT ND BS+ ext - left foot TMA; pulses L foot 1+; pulses R foot 1+; right foot ulcerations present especially the R great toe; no cellulitis either foot; left hand - distal tip of 3rd finger with gangrene/necrosis psych - a/o x 3 Tin Maxwell MD Coding Level of Care Code D/C DAY MANAGEMENT >30 MINS Diagnoses Closed pelvic fracture S32.9XXA Encounter type: initial encounter Pelvic bone location: unspecified part of pelvis Acetabular fracture S32.402A Encounter type: initial encounter Fracture alignment: nondisplaced Fracture type: closed Laterality: left Sublocation of acetabulum: unspecified portion of acetabulum Fracture of head of radius S52.125A Encounter type: initial encounter Fracture alignment: nondisplaced Fracture type: closed Laterality: left COVID-19 U07.1 Nausea & vomiting R11.2 Hyponatremia E87.1 ESRD (end stage renal disease) on dialysis N18.6; Z99.2 Hypoglycemia E16.2 Atrial fibrillation I48.91 Open wound of right great toe S91.101A Necrotic ulceration of fingers I96 Trigeminal neuralgia G50.0 Pressure ulcer of left foot, unstageable L89.890
--- NOTE | 2021-09-15 10:58 | Coding Query ---
TREATMENT RENDERED WITHOUT A DIAGNOSIS To promote full compliance with coding requirements relating to patient care, physician participation is requested in all cases of work order sorting clerk uncertainty. Please assist us with providing a diagnosis/symptom for the test(s) below: A diagnosis/symptom was not documented on your Order. A valid diagnosis/symptom is required to bill all insurances. Please remember that we are unable to code a diagnosis of rule out, probable, possible, questionable, or suspected. Tests that require a diagnosis: * US EXTREMITY NON-VASCULAR DIAGNOSIS: edema Provider Signature: ___Perla Riley PA-C Date: __09/16/21 Thank you Nila Bingham [employer] Once completed, please kindly fax back to [phone] For questions please call [phone] [facility]ENTER[facility]al[facility]
== END 2021-08-06 15:09 | disposition home or self-care (01) ==
LOC: ED 11:17 → INTOOBSV 15:53 → 3W 15:53 → SUATTDRO 15:53 → 3W 17:12

== ENCOUNTER 2021-10-19 13:52 | Inpatient (IN) ==
[2021-10-19] MEDS ORDERED: SODIUM CHLORIDE 0.9% 250 ML IV ONE ×2 (14:11→14:55)
--- NOTE | 2021-10-19 14:18 | Emergency Department Note ---
History of Present Illness General Chief complaint: Fall Stated complaint: Fall, Left Knee Pain Time Seen by Provider: 10/19/21 14:04 Source: patient and family () History of Present Illness Provider complaint: Left knee pain Onset (ago): hour(s) less than 1 Location: lower extremity and left Radiation: non-radiation Severity: mild Associated symptoms: no chest pain, no fever/chills, no headaches, no nausea/vomiting or no shortness of breath 76-year-old female end-stage renal disease on hemodialysis Wednesday also on [facility] presents emergency department for fall. Patient's reports that she slid out of her wheelchair and hit her left knee. Patient reporting left knee pain. also reports that the patient has been having increasing abdominal pain and vomiting for the last 3 days. No hematemesis coffee-ground emesis or bilious vomiting. No fevers. No chest pain or difficulty breathing. Home Medications Medication Instructions Recorded Confirmed Type cetirizine 10 mg tablet (Zyrtec) 10 mg PO QPM 07/07/18 10/19/21 History vit B complx, C-iron 8 mg-folic 2 tab PO QDD 12/19/18 10/19/21 History acid 800 mcg-D3 1,000 unit-zinc tablet (ProRenal) biotin 1 mg capsule 1 mg PO BID cap 02/01/19 10/19/21 History lactobacillus combination no.4 3 3,000 mmu cells PO BIDM cap 02/01/19 10/19/21 History billion cell capsule (Probiotic) calcium acetate(phosphat bind) 667 667 mg PO BID cap 03/12/20 10/19/21 History mg capsule bumetanide 2 mg tablet 2 mg PO BID #180 tab 06/11/20 10/19/21 Rx vitamins A,C,Q-eibb-sghdsl 14,320 1 cap PO BID 10/10/20 10/19/21 History unit-226 mg-200 unit capsule (PreserVision AREDS) diphenhydramine 25 1 tab PO HS 02/04/21 10/19/21 History mg-acetaminophen 500 mg tablet (Tylenol PM Extra Strength) loperamide 2 mg capsule (Imodium 2 mg PO UD PRN 02/21/21 10/19/21 History A-D) aloe vera 1 applic TOPICAL WK 05/08/21 10/19/21 History labetalol 200 mg tablet See Rx Instructions .ROUTE 05/09/21 10/19/21 Rx .COMPLEX #230 tablet lamotrigine 25 mg tablet (Lamictal) 25 mg PO BID #60 tab 07/03/21 10/19/21 Rx oxcarbazepine 300 mg tablet 150 - 300 mg PO .COMPLEX 30 Days 07/03/21 10/19/21 Rx (Trileptal) #45 tab apixaban 2.5 mg tablet (Eliquis) 2.5 mg PO BID 08/14/21 10/19/21 History hydrocodone 5 mg-acetaminophen 325 1 tab PO TID #90 tab 09/22/21 10/19/21 Rx mg tablet omeprazole 40 mg capsule,delayed 40 mg PO QAM #90 cap 09/29/21 10/19/21 Rx release amoxicillin 500 mg capsule 500 mg PO tid #42 cap 10/09/21 10/19/21 Rx promethazine 25 mg tablet 25 mg PO UD PRN #90 tab 10/09/21 10/19/21 Rx benzonatate 100 mg capsule 100 mg PO TID PRN #30 cap 10/16/21 10/19/21 Rx lidocaine-prilocaine 2.5 %-2.5 % See Rx Instructions .ROUTE .COMPLEX 10/19/21 10/19/21 History topical cream Allergies Allergy/AdvReac Type Severity Reaction Status Date / Time simvastatin Allergy Mild "did not Verified 10/16/21 11:05 feel well while taking", legs hurt metformin Allergy Unknown does not Verified 10/16/21 11:05 remember ANGEL Inhibitors AdvReac Mild Cough Verified 10/16/21 11:05 homatropine AdvReac Mild Nausea Verified 10/16/21 11:05 [From Hycodan (with homatropin)] oxycodone AdvReac Mild Nausea Verified 10/16/21 11:05 pioglitazone AdvReac Mild Nausea Verified 10/16/21 11:05 rosiglitazone AdvReac Mild Nausea Verified 10/16/21 11:05 Qjshjly-HKU-YkZ Reductase AdvReac Mild LEGS HURT Verified 10/16/21 11:05 Inhibitor [Hqzlcek-Fzt-Dga Reductase Inhibitor] suture AdvReac Mild Catgut - Verified 10/16/21 11:05 slow healing, inflammed tissue escitalopram AdvReac Unknown Unknown Verified 10/16/21 11:05 Past Med/Surg History Medical History Anemia Chronic- Hgb 8.2-10.0 for past year Asymptomatic bilateral carotid artery stenosis Atherosclerosis without hemodynamically significant stenosis in the carotid arteries per 06/09/18 carotid doppler Atrial fibrillation On Eliquis- no cardioversion, follows with PCP. PT REPORTS HX AFIB ONE TIME WHILE IN HOSPITAL FOLLOWS DR HARPER Broken arm [id number] SURGERY, states she can not have it fixed due to fistula C. difficile colitis hx (2019) does have chronic diarrhea (r/t removal of gallbladder, per pt). Chronic pain Cirrhosis of liver Diabetes Hx of Type 2 IDDM -- no medications currently since placed on diaylsis. Diabetic nephropathy Disc degeneration, lumbar Encounter for management of wound VAC WOUND VAC LEFT FOOT , REASON FOR CURRENT ANTIBIOTICS PER PT End stage renal disease DIALYSIS M/W/F [place] LEFT ARM FISTULA Erosive (osteo)arthritis Fractured pelvis jul 31, 2021- came to ER , tested for Covid- came back positive- asymptomatic; hospitalized for approx week per patient Gangrene LEFT MIDDLE FINGER, HAS HAD FOR 9 MONTHS GERD (gastroesophageal reflux disease) Gout hx Hiatal hernia HTN (hypertension) PT REPORTS BP HAS BEEN LOW LATELY Hyperlipidemia Left ventricular hypertrophy Moderate/concentric per 05/2020 ECHO- no applications 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 Usually stable on Lamictal and oxcarbazepine. 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 Family History Daughter Breast cancer Unknown Emphysema, unspecified Family/Other Family history of diabetes mellitus NEPHEW Other Family history non-contributory No family history of adverse response to anesthesia Social History Smoking Status: Never smoker Second Hand Exposure: No; Hx Alcohol Use: No Hx Substance Use: Yes Preferred Language: Belarusian Communication Ability: Effective Visual Impairment: No Limitations Staff Development Manager Required: No Beliefs That Will Affect Care: None marital status: Current Living Situation: Spouse Current Living Situation Comment: daughter is primary family day care worker current occupational status: retired How many Children do You have: 2 Feels Safe at Home: Yes caffeine: Yes Seatbelt Use: always Assistive Devices: Wheelchair Review of Systems A total of 10 systems reviewed and were otherwise negative Physical Exam Vital Signs Vital Signs - 24 hr 10/19/21 14:11 10/19/21 14:48 10/19/21 14:50 Temperature 37.1 C Temperature Source Oral Pulse Rate 66 75 Pulse Rate [Apical] 63 Pulse Rate from SpO2 Sensor 64 Pulse Rhythm Regular Pulse Strength Normal Respiratory Rate 18 18 17 Respiratory Effort / Characteristics Non-Labored Non-Labored Respiratory Depth Normal Normal Respiratory Pattern Regular Regular Blood Pressure 81/44 L Blood Pressure [Left Arm] 85/50 L Blood Pressure Mean 56 Blood Pressure Mean [Left Arm] 61 Blood Pressure Position Lying Blood Pressure Position [Left Arm] Lying Pulse Oximetry 94 94 95 Oxygen Delivery Method Room Air Room Air Room Air Sepsis Recent Fever Within 48 Hours No Sepsis New/Unexplained Change in Mental Status No Sepsis Action Taken by Nursing No Action Required 10/19/21 15:00 10/19/21 15:10 10/19/21 15:15 Temperature Temperature Source Pulse Rate 68 73 70 Pulse Rate [Apical] Pulse Rate from SpO2 Sensor 67 58 L 69 Pulse Rhythm Pulse Strength Respiratory Rate 18 17 16 Respiratory Effort / Characteristics Respiratory Depth Respiratory Pattern Blood Pressure 96/51 L 97/44 L Blood Pressure [Left Arm] Blood Pressure Mean 66 61 Blood Pressure Mean [Left Arm] Blood Pressure Position Blood Pressure Position [Left Arm] Pulse Oximetry 95 96 95 Oxygen Delivery Method Room Air Room Air Room Air Sepsis Recent Fever Within 48 Hours Sepsis New/Unexplained Change in Mental Status Sepsis Action Taken by Nursing 10/19/21 15:20 10/19/21 15:46 10/19/21 15:47 Temperature Temperature Source Pulse Rate 63 56 L 0 L Pulse Rate [Apical] Pulse Rate from SpO2 Sensor 64 73 Pulse Rhythm Pulse Strength Respiratory Rate 19 18 Respiratory Effort / Characteristics Respiratory Depth Respiratory Pattern Blood Pressure 102/55 L 107/49 L Blood Pressure [Left Arm] Blood Pressure Mean 70 68 Blood Pressure Mean [Left Arm] Blood Pressure Position Blood Pressure Position [Left Arm] Pulse Oximetry 95 95 Oxygen Delivery Method Room Air Sepsis Recent Fever Within 48 Hours Sepsis New/Unexplained Change in Mental Status Sepsis Action Taken by Nursing 10/19/21 15:48 10/19/21 15:50 10/19/21 16:00 Temperature Temperature Source Pulse Rate 72 67 Pulse Rate [Apical] 70 Pulse Rate from SpO2 Sensor 69 68 Pulse Rhythm Pulse Strength Respiratory Rate 18 23 18 Respiratory Effort / Characteristics Non-Labored Respiratory Depth Normal Respiratory Pattern Regular Blood Pressure 103/51 L Blood Pressure [Left Arm] 107/49 L Blood Pressure Mean 68 Blood Pressure Mean [Left Arm] 68 Blood Pressure Position Blood Pressure Position [Left Arm] Lying Pulse Oximetry 95 96 96 Oxygen Delivery Method Room Air Sepsis Recent Fever Within 48 Hours Sepsis New/Unexplained Change in Mental Status Sepsis Action Taken by Nursing 10/19/21 16:10 10/19/21 16:15 10/19/21 16:20 Temperature Temperature Source Pulse Rate 71 72 70 Pulse Rate [Apical] Pulse Rate from SpO2 Sensor 72 74 66 Pulse Rhythm Pulse Strength Respiratory Rate 12 22 19 Respiratory Effort / Characteristics Respiratory Depth Respiratory Pattern Blood Pressure 102/55 L Blood Pressure [Left Arm] Blood Pressure Mean 70 Blood Pressure Mean [Left Arm] Blood Pressure Position Blood Pressure Position [Left Arm] Pulse Oximetry 95 96 96 Oxygen Delivery Method Sepsis Recent Fever Within 48 Hours Sepsis New/Unexplained Change in Mental Status Sepsis Action Taken by Nursing Physical Exam HENT: Exam performed. -Head: Normocephalic and atraumatic. -Right Ear: External ear normal. No mastoid tenderness. -Left Ear: External ear normal. No mastoid tenderness. -Mouth/Throat: The oropharynx is clear and moist. No trismus in the jaw. No dental abscesses or uvula swelling. No oropharyngeal exudate or tonsillar abscesses. EYES: Conjunctivae and EOM are normal. Pupils are equal, round, and reactive to light. Right eye exhibits no discharge. Left eye exhibits no discharge. No scleral icterus. NECK: Normal range of motion. Neck supple. No JVD present. No spinous process tenderness present. No carotid bruit present. No rigidity. No tracheal deviation and normal range of motion present. No Brudzinski's sign and no Kernig's sign noted. CV: Normal rate, regular rhythm, normal heart sounds and intact distal pulses. There is no peripheral edema. Palpable radial pulses bue. PULM/CHEST: Effort normal and breath sounds normal. No respiratory distress. No stridor. She has no wheezes. She has no rales. -Chest Wall: She exhibits no tenderness. ABD: The abdomen is soft. Bowel sounds are normal. She has no distension. No mass is present. There is no tenderness. There is no rebound, no guarding, no Ruiz's sign and no tenderness at McBurney's point. Rovsig negative MUSC/SKEL: Left-sided foot amputation. Left upper extremity AV fistula with palpable thrill LYMPH: No cervical adenopathy. NEURO: Motor and sensation grossly intact. Course Course 1404: The patient was evaluated in room A9. A complete history and physical exam was performed Cardiac monitoring: An order was placed for continuous cardiac monitoring. The monitor shows a rate of 70 with sinus rhythm Administered Medications Discontinued Medications Sodium Chloride (Nss) 250 mls @ 999 mls/hr IV .Q16M ONE Stop: 10/19/21 14:26 Last Infusion: 10/19/21 14:47 Dose: 0 mls/hr Documented by: [id number] Admin: 10/19/21 14:27 Dose: 999 mls/hr Documented by: [id number] Sodium Chloride (Nss) 250 mls @ 999 mls/hr IV .Q16M ONE Stop: 10/19/21 15:10 Last Infusion: 10/19/21 15:09 Dose: 0 mls/hr Documented by: [id number] Admin: 10/19/21 14:45 Dose: 999 mls/hr Documented by: [id number] Ioversol (Optiray 320 100ml) 93 ml IV ONCE ONE Stop: 10/19/21 15:40 Last Admin: 10/19/21 15:40 Dose: 93 ml Documented by: [id number] Ondansetron HCl (Ondansetron Inj 2 Mg/Ml 2 Ml Vial) 4 mg IV NOW STA Stop: 10/19/21 14:56 Last Admin: 10/19/21 15:07 Dose: 4 mg Documented by: [id number] Medical Decision Making Laboratory Data Result diagrams: 10/19/21 14:12 10/19/21 14:12 Lab Results 10/19/21 10/19/21 10/19/21 Range/Units 14:12 14:12 14:19 WBC 7.76 (4.8-10.8) K/uL RBC 2.97 L (4.2-5.4) M/uL Hgb 9.8 L (12.0-16.0) g/dL POC Hgb 10.2 L (12.0-16.0) g/dl Hct 29.7 L (37-47) % POC Hct 30 L (37-47) % MCV 100.0 (80-100) fL MCH 33.0 (25-34) pg MCHC 33.0 (32-36) g/dL RDW Std Deviation 60.9 H (36.4-46.3) fL RDW Coeff of Alejandra 16.9 H (11.5-14.5) % Plt Count 146 (130-400) K/uL MPV 9.1 (7.4-10.4) fL Immature Gran % (Auto) 0.3 % Neut % (Auto) 82.2 % Lymph % (Auto) 9.1 % Glascock % (Auto) 7.7 % Eos % (Auto) 0.6 % Baso % (Auto) 0.1 % Neut # (Auto) 6.37 (1.4-6.5) K/uL Lymph # (Auto) 0.71 L (1.2-3.4) K/uL Glascock # (Auto) 0.60 H (0.11-0.59) K/uL Eos # (Auto) 0.05 (0-0.5) K/uL Baso # (Auto) 0.01 (0-0.2) K/uL Immature Gran # (Auto) 0.02 (0.00-0.02) K/uL Absolute Nucleated RBC 0.05 H (0-0) K/uL Nucleated RBC % (auto) 0.6 % POC Sodium 134 L (135-144) mmol/L Sodium 134 L (136-145) mmol/L POC Potassium 3.1 L (3.3-5.0) mmol/L Potassium 3.2 L (3.5-5.1) mmol/L POC Chloride 97 L (101-112) mmol/L Chloride 99 (98-107) mmol/L Carbon Dioxide 26 (21-32) mmol/L POC Total CO2 25 (24-31) mmol/L Anion Gap 9 (3-11) POC Anion Gap 16.0 (16-25) mmol/L POC BUN 11 (7-18) mg/dl BUN 12 (6-23) mg/dl Creatinine 3.11 H (0.6-1.2) mg/dl POC Creatinine 3.0 H (0.6-1.3) mg/dl Est Cr Clr Drug Dosing 12.4 ml/min Est GFR ( Amer) 15.9 ml/min Est GFR (Non-Af Amer) 13.7 ml/min BUN/Creatinine Ratio 3.9 L (10-20) Glucose 83 (70-99(Fasting)) mg/dl POC Glucose (other) 82 (70-99) mg/dl Calcium 8.2 L (8.5-10.1) mg/dl POC Ioniz Calcium Mohan 1.17 (1.12-1.32) mmol/l Total Bilirubin 0.6 (0.2-1.0) mg/dl Direct Bilirubin 0.1 (0-0.2) mg/dl AST 16 (13-39) U/L ALT 14 (7-52) U/L Alkaline Phosphatase 160 H (34-104) U/L Total Protein 5.0 L (6.0-8.3) gm/dl Albumin 2.1 L (3.4-5.0) gm/dl Lipase 10 L (11-82) U/L SARS-CoV-2, RNA, NAAT (NEGATIVE) 10/19/21 Range/Units 16:53 WBC (4.8-10.8) K/uL RBC (4.2-5.4) M/uL Hgb (12.0-16.0) g/dL POC Hgb (12.0-16.0) g/dl Hct (37-47) % POC Hct (37-47) % MCV (80-100) fL MCH (25-34) pg MCHC (32-36) g/dL RDW Std Deviation (36.4-46.3) fL RDW Coeff of Alejandra (11.5-14.5) % Plt Count (130-400) K/uL MPV (7.4-10.4) fL Immature Gran % (Auto) % Neut % (Auto) % Lymph % (Auto) % Glascock % (Auto) % Eos % (Auto) % Baso % (Auto) % Neut # (Auto) (1.4-6.5) K/uL Lymph # (Auto) (1.2-3.4) K/uL Glascock # (Auto) (0.11-0.59) K/uL Eos # (Auto) (0-0.5) K/uL Baso # (Auto) (0-0.2) K/uL Immature Gran # (Auto) (0.00-0.02) K/uL Absolute Nucleated RBC (0-0) K/uL Nucleated RBC % (auto) % POC Sodium (135-144) mmol/L Sodium (136-145) mmol/L POC Potassium (3.3-5.0) mmol/L Potassium (3.5-5.1) mmol/L POC Chloride (101-112) mmol/L Chloride (98-107) mmol/L Carbon Dioxide (21-32) mmol/L POC Total CO2 (24-31) mmol/L Anion Gap (3-11) POC Anion Gap (16-25) mmol/L POC BUN (7-18) mg/dl BUN (6-23) mg/dl Creatinine (0.6-1.2) mg/dl POC Creatinine (0.6-1.3) mg/dl Est Cr Clr Drug Dosing ml/min Est GFR ( Amer) ml/min Est GFR (Non-Af Amer) ml/min BUN/Creatinine Ratio (10-20) Glucose (70-99(Fasting)) mg/dl POC Glucose (other) (70-99) mg/dl Calcium (8.5-10.1) mg/dl POC Ioniz Calcium Mohan (1.12-1.32) mmol/l Total Bilirubin (0.2-1.0) mg/dl Direct Bilirubin (0-0.2) mg/dl AST (13-39) U/L ALT (7-52) U/L Alkaline Phosphatase (34-104) U/L Total Protein (6.0-8.3) gm/dl Albumin (3.4-5.0) gm/dl Lipase (11-82) U/L SARS-CoV-2, RNA, NAAT NEGATIVE (NEGATIVE) Imaging Data Radiologist's Impression: Abdomen/Pelvis CT 10/19/21 14:[address] WITH IV CONTRAST CT DOSE: HISTORY: Generalized abdominal pain. fall TECHNIQUE: Multiaxial CT images of the abdomen and pelvis were performed following the use of intravenous contrast. A dose lowering technique was utilized adhering to the principles of ALARA. COMPARISON STUDY: Pelvis CT 07/31/2021. FINDINGS: There are small bilateral pleural fusions. Bibasilar densities most pronounced on the left. This could represent atelectasis and/or a pneumonia. The heart is mildly enlarged. No pneumoperitoneum. No pneumatosis. Healing left pubic ring fractures are again noted. Prior fixation of a proximal left femoral fracture. There is also old right inferior pubic ramus fracture, unchanged. Focal deformity at S3 and patchy sclerosis within the sacrum consistent with healing insufficiency fractures. Levoscoliosis of the lumbar spine. There are healing bilateral anterior rib fractures. Focal deformity within the left anterior seventh rib consistent with an age-indeterminate fracture. There is mo derate body wall edema. This has progressed in the interval. Prior cholecystectomy. Nodular contour to the liver consistent with mild cirrhosis. The main portal vein is patent. No hydronephrosis. The spleen demonstrates a bandlike area of decreased perfusion. This could be due to the timing of contr ast or a splenic infarct. Normal jugular glands. Multiple bilateral renal hypodense lesions. Some of these are technically too small to characterize but statistically represent cysts. Specifically, there is an indeterminate 1 cm lesion within the upper pole the left kidney. No retroperitoneal lymphadenopathy or hematoma. Normal caliber abdominal aorta. Fatty atrophy of the pancreas. No pelvic free fluid. Mild bladder wall thickening. The uterus and ovaries are unremarkable. Trace pelvic free fluid. Mild pelvic floor collapse. No bowel wall thickening or obstruction. Normal appendix. IMPRESSION: 1. Focal deformity within the left anterior seventh rib consistent with an age- indeterminate fracture. Recommend correlation for pain at this location to assess for acute injury. 2. Multiple additional healing/healed fractures as described above. 3. Moderate body wall edema which has progressed. 4. Small bilateral pleural effusions. 5. Bibasilar airspace opacities, left greater than right. These are nonspecific but may represent atelectasis or pneumonia. 6. Mild bladder wall thickening. 7. Cirrhotic liver. 8. An indeterminate 1 cm lesion within the upper pole the left kidney. This could represent a hyperdense cyst or solid renal mass. Follow-up nonemergent renal ultrasound or abdominal MRI can be used for further evaluation. 9. Additional findings as described above. ACT 112: Negative or not required by law. Electronically signed by: Marko Wooten M.D. 10/19/2021 4:[address] 10/19/21 14:[address] DOSE: 1672.43 mGy.cm HISTORY: fall TECHNIQUE: Multiaxial CT images of the cervical spine were performed and reformatted in the sagittal and coronal plane without the use of contrast. A dose lowering technique was utilized adhering to the principles of ALARA. COMPARISON: Cervical spine CT 01/24/2020. FINDINGS: No fractures within the cervical spine. Mild to moderate degenerative changes again noted. There is 2 mm of anterolisthesis of C3 on C4 and C4 on C5. This is likely due to the long-standing degenerative change. Partially visualized left pleural effusion. No pneumothorax. IMPRESSION: 1. No fractures within the cervical spine. 2. Partially visualized left pleural effusion. ACT 112: Negative or not required by law. Electronically signed by: Marko Wooten M.D. 10/19/2021 3:51 PM Chest X-Ray 10/19/21 14:13 XR chest 1V portable HISTORY: fall COMPARISON: Chest 07/31/2021. FINDINGS: There are low lung volumes. No pneumothorax. The heart is enlarged. There is progressive interstitial/vascular thickening consistent with mild pulmonary edema. Small bilateral pleural fusions and bibasilar densities are also noted. Slightly rotated study. Multiple old, healed left-sided rib fractures. Chronic left shoulder deformity with absence of the left humeral head. IMPRESSION: 1. Cardiomegaly with mild interstitial pulmonary edema and small bilateral ple ural effusions. This has progressed in the interval. 2. Left basilar consolidation could represent atelectasis or pneumonia. This will be better appreciated on the same day abdomen and pelvis CT. ACT 112: Negative or not required by law. Electronically signed by: Marko Wooten M.D. 10/19/2021 3:[address] 10/19/21 14:[address] DOSE: HISTORY: fall TECHNIQUE: Multiaxial CT images of the head were performed without the use of intravenous contrast. Automated exposure control was utilized for this study. A dose lowering technique was utilized adhering to the principles of ALARA. Comparison: Head CT 07/31/2021. Findings: Chronic hyperdense secretions again noted within the right maxillary sinus. The mastoid air cells are clear. The calvarium and skull base are intact. There is no mass, hematoma, midline shift, acute infarct. White matter hypodensity is nonspecific but suggestive of microvascular ischemic change. The ventricles and sulci demonstrate mild age-related involutional changes. Impression: No significant change compared to the prior study. No acute intracranial abnormality. ACT 112: Negative or not required by law. Electronically signed by: Marko Wotoen M.D. 10/19/2021 3:46 PM Pelvis X-Ray 10/19/21 14:13 XR pelvis 1-2V routine CLINICAL HISTORY: fall. Pelvic pain. COMPARISON STUDY: Pelvis 07/2709/10/2021. FINDINGS: The bones are osteopenic. Artifact overlying the pelvis and hips results in suboptimal evaluation. No definite acute fracture or dislocation. Prior internal fixation within the left femur again noted. The hardware appears intact. IMPRESSION: Suboptimal evaluation of the pelvis/hips due to overlying artifact. This will be better appreciated on the same day abdomen and pelvis CT. No definite acute fracture or dislocation. ACT 112: Negative or not required by law. Electronically signed by: Marko Wooten M.D. 10/19/2021 3:32 PM Knee X-Ray 10/19/21 14:14 XR knee LT 1 or 2V routine CLINICAL HISTORY: fall. Left knee pain. COMPARISON STUDY: Left femur 11/08/2018. FINDINGS: There is a slightly comminuted and displaced oblique fracture within the distal left femoral shaft. The fractures located between the tip of the intramedullary dhaval and knee prosthesis. This demonstrates up to 3 cm of overlap and 3 cm of medial displacement. The bones are osteopenic. Moderate hemarthrosis within the left knee. Vascular calcifications are noted. IMPRESSION: Displaced distal left femoral fracture as described above. ACT 112: Negative or not required by law. Electronically signed by: Marko Wooten M.D. 10/19/2021 3:21 PM ECG Data Indication: + other (arrythmia) Rate (beats per minute): 68 Rhythm: + atrial fibrillation ECG Intervals/blocks: + Normal QRS and + Normal QT-c ECG ST segments: + Normal ST segments MDM Narrative Vital signs stable status post 2 250 cc boluses. Labs within normal limits. Imaging is significant for a left distal femur fracture. Patient's states that the surgery was done by Dr. Miles however they now follow-up with Dr. Peraza and prefer to be evaluated by him from an orthopedics standpoint. Spoke with Dr. Alvarenga on-call for Dr. Peraza who states the patient's the patient in a bulky Valenzuela dressing with a knee immobilizer and admit to medicine with orthopedics on consult. Discussed with Dr. Alexandra araujo any hospitalist will admit the patient. Impression & Plan Closed femur fracture Discharge Plan Visit Data Chief Complaint: Fall Stated Complaint: Fall, Left Knee Pain ED Provider: Jonathan Acosta Discharge Problem: Closed femur fracture Patient Disposition: Admitted As Inpatient Forms Stand Alone Forms: [facility] Prescriptions Prescriptions: No Action amoxicillin 500 mg capsule 500 mg PO tid Qty: 42 RF: 0 bumetanide 2 mg tablet 2 mg PO BID Qty: 180 RF: 1 labetalol 200 mg tablet See Rx Instructions .ROUTE .COMPLEX Qty: 230 RF: 2 hydrocodone-acetaminophen 5-325 mg tablet 1 tab PO TID Qty: 90 RF: 0 omeprazole 40 mg capsule,delayed release(DR/EC) 40 mg PO QAM Qty: 90 RF: 3 promethazine 25 mg tablet 25 mg PO UD PRN (Reason: Nausea) Qty: 90 RF: 3 lamotrigine [Lamictal] 25 mg tablet 25 mg PO BID Qty: 60 RF: 11 Trileptal 300 mg tablet 150 - 300 mg PO .COMPLEX 30 Days Qty: 45 RF: 11 benzonatate 100 mg capsule 100 mg PO TID PRN (Reason: cough) Qty: 30 RF: 2 biotin 1 mg capsule 1 mg PO BID RF: 0 ProRenal 8 mg iron-800 mcg-1,000 unit tablet 2 tab PO QDD RF: 0 cetirizine [Zyrtec] 10 mg Tablet 10 mg PO QPM RF: 0 Probiotic 3 billion cell capsule 3,000 mmu cells PO BIDM RF: 0 calcium acetate(phosphat bind) 667 mg capsule 667 mg PO BID RF: 0 loperamide [Imodium A-D] 2 mg capsule 2 mg PO UD PRN (Reason: Diarrhea) RF: 0 aloe vera Gel 1 applic TOPICAL WK RF: 0 PreserVision AREDS [id number] adoo-kn-gaua Capsule 1 cap PO BID RF: 0 diphenhydramine-acetaminophen [Tylenol PM Extra Strength] 25-500 mg Tablet 1 tab PO HS RF: 0 Eliquis 2.5 mg tablet 2.5 mg PO BID RF: 0 lidocaine-prilocaine 2.5-2.5 % cream See Rx Instructions .ROUTE .COMPLEX RF: 0 Referrals Referrals: Roderick Espino MD [Primary Care Provider] -
[2021-10-19 14:33] LABS: Basophils # (auto) 0.01 K/uL (0-0.2); Basophils % (auto) 0.1 %; Eosinophils # (auto) 0.05 K/uL (0-0.5); Eosinophils % (auto) 0.6 %; Hematocrit (blood only) 29.7 % (37-47); Hemoglobin 9.8 g/dL (12.0-16.0); Immature Granulocytes # (auto) 0.02 K/uL (0.00-0.02); Immature Granulocytes % (auto) 0.3 %; Lymphocytes # (auto) 0.71 K/uL (1.2-3.4); Lymphocytes % (auto) 9.1 %; Mean Platelet Volume 9.1 fL (7.4-10.4); Monocytes % (auto) 7.7 %; Neutrophils # (auto) 6.37 K/uL (1.4-6.5); Neutrophils % (auto) 82.2 %; Nucleated RBC # (auto) 0.05 K/uL (0-0); Nucleated RBC % (auto) 0.6 %; Platelet Count 146 K/uL (130-400); RDW Coefficient of Variation 16.9 % (11.5-14.5); RDW Standard Deviation 60.9 fL (36.4-46.3); Red Blood Count 2.97 M/uL (4.2-5.4); White Blood Count 7.76 K/uL (4.8-10.8)
[2021-10-19 14:33] LABS: iSTAT Hemoglobin 10.2 g/dl (12.0-16.0); iSTAT Ionized Calcium 1.17 mmol/l (1.12-1.32); iSTAT Potassium 3.1 mmol/L (3.3-5.0)
[2021-10-19 14:55] LABS: Albumin Level 2.1 gm/dl (3.4-5.0); BUN Creatinine Ratio 3.9 (10-20); Bilirubin Direct 0.1 mg/dl (0-0.2); Bilirubin,Total 0.6 mg/dl (0.2-1.0); Calcium 8.2 mg/dl (8.5-10.1); Creatinine Clr Calc Pharmacy 12.4 ml/min; Est GFR (African American) 15.9 ml/min; Est GFR (Non-African American) 13.7 ml/min; Potassium 3.2 mmol/L (3.5-5.1)
[2021-10-19] MEDS ORDERED: ONDANSETRON INJ 2 MG/ML 2 ML VIAL IV STA (14:55)
--- NOTE | 2021-10-19 15:23 | XRay Report ---
XR knee LT 1 or 2V routine CLINICAL HISTORY: fall. Left knee pain. COMPARISON STUDY: Left femur 11/08/2018. FINDINGS: There is a slightly comminuted and displaced oblique fracture within the distal left femora l shaft. The fractures located between the tip of the intramedullary dhaval and knee prosthesis. This de monstrates up to 3 cm of overlap and 3 cm of medial displacement. The bones are osteopenic. Moderate hemarthrosis within the left knee. Vascular calcifications are noted. IMPRESSION: Displaced distal left femoral fracture as described above. ACT 112: Negative or not required by law. Electronically signed by: Marko Wooten M.D. 10/19/2021 3:21 PM
--- NOTE | 2021-10-19 15:25 | XRay Report ---
XR chest 1V portable HISTORY: fall COMPARISON: Chest 07/31/2021. FINDINGS: There are low lung volumes. No pneumothorax. The heart is enlarged. There is progressive in terstitial/vascular thickening consistent with mild pulmonary edema. Small bilateral pleural fusions and bibasilar densities are also noted. Slightly rotated study. Multiple old, healed left-sided rib f ractures. Chronic left shoulder deformity with absence of the left humeral head. IMPRESSION: 1. Cardiomegaly with mild interstitial pulmonary edema and small bilateral pleural effusions. This boone s progressed in the interval. 2. Left basilar consolidation could represent atelectasis or pneumonia. This will be better appreciat ed on the same day abdomen and pelvis CT. ACT 112: Negative or not required by law. Electronically signed by: Marko Wooten M.D. 10/19/2021 3:23 PM
--- NOTE | 2021-10-19 15:34 | XRay Report ---
XR pelvis 1-2V routine CLINICAL HISTORY: fall. Pelvic pain. COMPARISON STUDY: Pelvis 07/2709/10/2021. FINDINGS: The bones are osteopenic. Artifact overlying the pelvis and hips results in suboptimal eval uation. No definite acute fracture or dislocation. Prior internal fixation within the left femur agai n noted. The hardware appears intact. IMPRESSION: Suboptimal evaluation of the pelvis/hips due to overlying artifact. This will be better appreciated on the same day abdomen and pelvis CT. No definite acute fracture or dislocation. ACT 112: Negative or not required by law. Electronically signed by: Marko Wooten M.D. 10/19/2021 3:32 PM
[2021-10-19] MEDS ORDERED: OPTIRAY 320 100ml IV ONE (15:39)
--- NOTE | 2021-10-19 15:49 | CT Scan Report ---
HEAD CT NONCONTRAST CT DOSE: HISTORY: fall TECHNIQUE: Multiaxial CT images of the head were performed without the use of intravenous contrast. A utomated exposure control was utilized for this study. A dose lowering technique was utilized adheri ng to the principles of ALARA. Comparison: Head CT 07/31/2021. Findings: Chronic hyperdense secretions again noted within the right maxillary sinus. The mastoid air cells are clear. The calvarium and skull base are intact. There is no mass, hematoma, midline shift, acute infarct. White matter hypodensity is nonspecific but suggestive of microvascular ischemic humphries ge. The ventricles and sulci demonstrate mild age-related involutional changes. Impression: No significant change compared to the prior study. No acute intracranial abnormality. ACT 112: Negative or not required by law. Electronically signed by: Marko Wooten M.D. 10/19/2021 3:46 PM
--- NOTE | 2021-10-19 15:54 | CT Scan Report ---
CERVICAL SPINE CT CT DOSE: 1672.43 mGy.cm HISTORY: fall TECHNIQUE: Multiaxial CT images of the cervical spine were performed and reformatted in the sagittal and coronal plane without the use of contrast. A dose lowering technique was utilized adhering to th e principles of ALARA. COMPARISON: Cervical spine CT 01/24/2020. FINDINGS: No fractures within the cervical spine. Mild to moderate degenerative changes again noted. There is 2 mm of anterolisthesis of C3 on C4 and C4 on C5. This is likely due to the long-standing de generative change. Partially visualized left pleural effusion. No pneumothorax. IMPRESSION: 1. No fractures within the cervical spine. 2. Partially visualized left pleural effusion. ACT 112: Negative or not required by law. Electronically signed by: Marko Wooten M.D. 10/19/2021 3:51 PM
--- NOTE | 2021-10-19 16:05 | CT Scan Report ---
ABDOMEN AND PELVIS CT WITH IV CONTRAST CT DOSE: HISTORY: Generalized abdominal pain. fall TECHNIQUE: Multiaxial CT images of the abdomen and pelvis were performed following the use of intrave nous contrast. A dose lowering technique was utilized adhering to the principles of ALARA. COMPARISON STUDY: Pelvis CT 07/31/2021. FINDINGS: There are small bilateral pleural fusions. Bibasilar densities most pronounced on the left. This could represent atelectasis and/or a pneumonia. The heart is mildly enlarged. No pneumoperitone um. No pneumatosis. Healing left pubic ring fractures are again noted. Prior fixation of a proximal l eft femoral fracture. There is also old right inferior pubic ramus fracture, unchanged. Focal deformi ty at S3 and patchy sclerosis within the sacrum consistent with healing insufficiency fractures. Levo scoliosis of the lumbar spine. There are healing bilateral anterior rib fractures. Focal deformity wi thin the left anterior seventh rib consistent with an age-indeterminate fracture. There is moderate b kerrie wall edema. This has progressed in the interval. Prior cholecystectomy. Nodular contour to the li dariel consistent with mild cirrhosis. The main portal vein is patent. No hydronephrosis. The spleen dem onstrates a bandlike area of decreased perfusion. This could be due to the timing of contrast or a sp lenic infarct. Normal jugular glands. Multiple bilateral renal hypodense lesions. Some of these are t echnically too small to characterize but statistically represent cysts. Specifically, there is an ind eterminate 1 cm lesion within the upper pole the left kidney. No retroperitoneal lymphadenopathy or h ematoma. Normal caliber abdominal aorta. Fatty atrophy of the pancreas. No pelvic free fluid. Mild bl adder wall thickening. The uterus and ovaries are unremarkable. Trace pelvic free fluid. Mild pelvic floor collapse. No bowel wall thickening or obstruction. Normal appendix. IMPRESSION: 1. Focal deformity within the left anterior seventh rib consistent with an age-indeterminate fracture . Recommend correlation for pain at this location to assess for acute injury. 2. Multiple additional healing/healed fractures as described above. 3. Moderate body wall edema which has progressed. 4. Small bilateral pleural effusions. 5. Bibasilar airspace opacities, left greater than right. These are nonspecific but may represent ate lectasis or pneumonia. 6. Mild bladder wall thickening. 7. Cirrhotic liver. 8. An indeterminate 1 cm lesion within the upper pole the left kidney. This could represent a hyperde nse cyst or solid renal mass. Follow-up nonemergent renal ultrasound or abdominal MRI can be used for further evaluation. 9. Additional findings as described above. ACT 112: Negative or not required by law. Electronically signed by: Marko Wooten M.D. 10/19/2021 4:03 PM
--- NOTE | 2021-10-19 17:22 | History & Physical Report ---
Date of Service October 19, 2021 History of Present Illness Primary Care Provider: Roderick Espino MD Mrs. Diaz 76-year-old female with past medical history of ESRD w/ hemodialysis MWF, A. fib on Eliquis, liver cirrhosis, diabetes, gangrene of left middle finger, GERD, gout, hypertension, hyperlipidemia, PAD, pulmonary hypertension, sleep apnea, who presents today after falling out of her wheelchair. In ED, borderline hypotensive 1 2/5 otherwise vital signs able. Labs significant for hemoglobin 9.8 (see baseline). Potassium 3.2, creatinine 3.1 (baseline), alk phos 160. Left knee x-ray with displaced distal left femoral fracture. hCT no acute intracranial abnormality. C-spine without evidence of fractures. Chest x-ray with cardiomegaly and interstitial pulmonary edema, small bilateral pleural effusions, as well as left basilar consolidation. CT A/P with focal deformity within the left anterior seventh rib consistent with an age- indeterminate fracture, as well as additional healing and healed fractures. Moderate body wall edema which is progressed, small bilateral pleural effusion, mild lateral thickening, shock liver, indeterminate 1 cm lesion within the upper pole of the left kidney. Allergies Allergy/AdvReac Type Severity Reaction Status Date / Time simvastatin Allergy Mild "did not Verified 10/16/21 11:05 feel well while taking", legs hurt metformin Allergy Unknown does not Verified 10/16/21 11:05 remember ANGEL Inhibitors AdvReac Mild Cough Verified 10/16/21 11:05 homatropine AdvReac Mild Nausea Verified 10/16/21 11:05 [From Hycodan (with homatropin)] oxycodone AdvReac Mild Nausea Verified 10/16/21 11:05 pioglitazone AdvReac Mild Nausea Verified 10/16/21 11:05 rosiglitazone AdvReac Mild Nausea Verified 10/16/21 11:05 Bcfkzbg-DZJ-XiF Reductase AdvReac Mild LEGS HURT Verified 10/16/21 11:05 Inhibitor [Ppezzfb-Rbi-Iip Reductase Inhibitor] suture AdvReac Mild Catgut - Verified 10/16/21 11:05 slow healing, inflammed tissue escitalopram AdvReac Unknown Unknown Verified 10/16/21 11:05 Home Medications Medication Instructions Recorded Confirmed Type cetirizine 10 mg tablet (Zyrtec) 10 mg PO QPM 07/07/18 10/19/21 History vit B complx, C-iron 8 mg-folic 2 tab PO QDD 12/19/18 10/19/21 History acid 800 mcg-D3 1,000 unit-zinc tablet (ProRenal) biotin 1 mg capsule 1 mg PO BID cap 02/01/19 10/19/21 History lactobacillus combination no.4 3 3,000 mmu cells PO BIDM cap 02/01/19 10/19/21 History billion cell capsule (Probiotic) calcium acetate(phosphat bind) 667 667 mg PO BID cap 03/12/20 10/19/21 History mg capsule bumetanide 2 mg tablet 2 mg PO BID #180 tab 06/11/20 10/19/21 Rx vitamins A,C,C-mxkd-ccxujp 14,320 1 cap PO BID 10/10/20 10/19/21 History unit-226 mg-200 unit capsule (PreserVision AREDS) diphenhydramine 25 1 tab PO HS 02/04/21 10/19/21 History mg-acetaminophen 500 mg tablet (Tylenol PM Extra Strength) loperamide 2 mg capsule (Imodium 2 mg PO UD PRN 02/21/21 10/19/21 History A-D) aloe vera 1 applic TOPICAL WK 05/08/21 10/19/21 History labetalol 200 mg tablet See Rx Instructions .ROUTE 05/09/21 10/19/21 Rx .COMPLEX #230 tablet lamotrigine 25 mg tablet (Lamictal) 25 mg PO BID #60 tab 07/03/21 10/19/21 Rx oxcarbazepine 300 mg tablet 150 - 300 mg PO .COMPLEX 30 Days 07/03/21 10/19/21 Rx (Trileptal) #45 tab apixaban 2.5 mg tablet (Eliquis) 2.5 mg PO BID 08/14/21 10/19/21 History hydrocodone 5 mg-acetaminophen 325 1 tab PO TID #90 tab 09/22/21 10/19/21 Rx mg tablet omeprazole 40 mg capsule,delayed 40 mg PO QAM #90 cap 09/29/21 10/19/21 Rx release amoxicillin 500 mg capsule 500 mg PO tid #42 cap 10/09/21 10/19/21 Rx promethazine 25 mg tablet 25 mg PO UD PRN #90 tab 10/09/21 10/19/21 Rx benzonatate 100 mg capsule 100 mg PO TID PRN #30 cap 10/16/21 10/19/21 Rx lidocaine-prilocaine 2.5 %-2.5 % See Rx Instructions .ROUTE .COMPLEX 10/19/21 10/19/21 History topical cream Past Med/Surg History Medical History Anemia Chronic- Hgb 8.2-10.0 for past year Asymptomatic bilateral carotid artery stenosis Atherosclerosis without hemodynamically significant stenosis in the carotid arteries per 06/09/18 carotid doppler Atrial fibrillation On Eliquis- no cardioversion, follows with PCP. PT REPORTS HX AFIB ONE TIME WHILE IN HOSPITAL FOLLOWS DR HARPER Broken arm [id number] SURGERY, states she can not have it fixed due to fistula C. difficile colitis hx (2018) does have chronic diarrhea (r/t removal of gallbladder, per pt). Chronic pain Cirrhosis of liver Diabetes Hx of Type 2 IDDM -- no medications currently since placed on diaylsis. Diabetic nephropathy Disc degeneration, lumbar Encounter for management of wound VAC WOUND VAC LEFT FOOT , REASON FOR CURRENT ANTIBIOTICS PER PT End stage renal disease DIALYSIS M/W/F [place] LEFT ARM FISTULA Erosive (osteo)arthritis Fractured pelvis jul 31, 2021- came to ER , tested for Covid- came back positive- asymptomatic; hospitalized for approx week per patient Gangrene LEFT MIDDLE FINGER, HAS HAD FOR 9 MONTHS GERD (gastroesophageal reflux disease) Gout hx Hiatal hernia HTN (hypertension) PT REPORTS BP HAS BEEN LOW LATELY Hyperlipidemia Left ventricular hypertrophy Moderate/concentric per 05/2020 ECHO- 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 Usually stable on Lamictal and oxcarbazepine. 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 Family History Daughter Breast cancer Unknown Emphysema, unspecified Family/Other Family history of diabetes mellitus NEPHEW Other Family history non-contributory No family history of adverse response to anesthesia Social History Smoking Status: Never smoker Second Hand Exposure: No; Hx Alcohol Use: No Hx Substance Use: Yes Preferred Language: Portuguese Communication Ability: Effective Visual Impairment: No Limitations Return Agent Airport Required: No Beliefs That Will Affect Care: None marital status: Current Living Situation: Spouse Current Living Situation Comment: daughter is primary farm or ranch animal caretaker current occupational status: retired How many Children do You have: 2 Feels Safe at Home: Yes caffeine: Yes Seatbelt Use: always Assistive Devices: Wheelchair Results & Data Results & Data ([facility]) Vital Signs (Past 12 Hours) Vital Signs Temp Pulse Pulse Resp BP BP Pulse Ox 10/19/21 16:20 70 19 96 10/19/21 16:15 72 22 102/55 L 96 10/19/21 16:10 71 12 95 10/19/21 16:00 67 18 103/51 L 96 10/19/21 15:50 72 23 96 10/19/21 15:48 70 18 107/49 L 95 10/19/21 15:47 0 L 107/49 L 95 10/19/21 15:46 56 L 18 10/19/21 15:20 63 19 102/55 L 95 10/19/21 15:15 70 16 97/44 L 95 10/19/21 15:10 73 17 96 10/19/21 15:00 68 18 96/51 L 95 10/19/21 14:50 75 17 95 10/19/21 14:48 63 18 85/50 L 94 10/19/21 14:11 37.1 C 66 18 81/44 L 94 ECG Additional Comments: Atrial fibrillation Rightward axis Low voltage QRS Cannot rule out Anteroseptal infarct (cited on or before 19-OCT-2021) Abnormal ECG When compared with ECG of 31-JUL-2021 11:34, Questionable change in initial forces of Anterior leads Nonspecific T wave abnormality now evident in Anterolateral leads. PG Care Time/CCT Total # of Minutes Spent Total Time Spent with Patient: Total time spent is greater than 50% in coordination of care (as documented) at patient's floor/unit and/or counseling patient: Coding
--- NOTE | 2021-10-19 17:37 | History & Physical Report ---
Date of Service October 19, 2021 Assessment & Plan (1) Left femoral shaft fracture: Plan: Placed in knee immobilizer in the ER Pain management with acetaminophen and Dilaudid Consult orthopedics -discussed with Dr. Alvarenga and no surgical decision made at this time. She is not medically optimized for surgery at this time and would require dialysis for fluid optimization prior to any surgical intervention. Given her multiple open wounds and recent staph aureus in left foot with her low blood pressure will also take blood cultures to make sure negative prior to surgical intervention. (2) Pleural effusion, left: Plan: Appears to be progressed since CXR in July but CXR appears more pulmonary edema in general. No WBC, hypoxia, cough or fever to suggest pneumonia but unable to get collateral history on admission. Nausea and abdominal pain mentioned by in ER notes. No abdominal pain on my exam in the ER. Procalcitonin with AM labs and repeat CXR in AM. If collateral history suggests pneumonia will need antibiotics for this otherwise fluid management to be performed with dialysis. (3) Atrial fibrillation: Plan: Rate controlled Hold Eliquis for potential surgical procedure - should be restarted if none planned (4) ESRD (end stage renal disease) on dialysis: Plan: Consult nephrology for dialysis management (5) Osteomyelitis of fourth toe of right foot: Plan: Looked after by wound care clinic. Toe is barely attached to her foot. I am unclear whether the goal is amputation of this toe at some point. She is on amoxicillin prescribed by the wound care clinic presumably for this toe. Consult wound care nurse for ongoing chronic management. (6) Trigeminal neuralgia: Plan: Continue Lamictal and oxcarbazepine Plan: VTE prophylaxis - on hold pending surgical decision, restart Eliquis if no surgery planned Diet - dialysis renal Disposition -admit to [facility] Admission and Anticipated Discharge Date Admission Date: October 19, 2021 History of Present Illness Chief Complaint: Left knee pain Primary Care Provider: Roderick Espino MD Kalyani Diaz is a 76 year old female who presents to the ER with brought in by and son. She reports they were getting her up to get her jeans on but her feet went out from under her. Slipped and fell down on to wheelchair and she heard something snap. She reports not being able to remember exactly what happened. She reports feeling well before this with no chest pain, shortness of breath or dizziness. No family members present at bedside and no answer on primary contact number for her therefore unable to get a collateral history at this time. In the ER Knee XR confirmed displaced distal left femoral fracture. Dr Alvarenga contacted and recommended admission under medicine with orthopedics to be consulted. Allergies Allergy/AdvReac Type Severity Reaction Status Date / Time simvastatin Allergy Mild "did not Verified 10/16/21 11:05 feel well while taking", legs hurt metformin Allergy Unknown does not Verified 10/16/21 11:05 remember ANGEL Inhibitors AdvReac Mild Cough Verified 10/16/21 11:05 homatropine AdvReac Mild Nausea Verified 10/16/21 11:05 [From Hycodan (with homatropin)] oxycodone AdvReac Mild Nausea Verified 10/16/21 11:05 pioglitazone AdvReac Mild Nausea Verified 10/16/21 11:05 rosiglitazone AdvReac Mild Nausea Verified 10/16/21 11:05 Egrshat-ZAF-NjA Reductase AdvReac Mild LEGS HURT Verified 10/16/21 11:05 Inhibitor [Xvnkcyk-Kbz-Pxd Reductase Inhibitor] suture AdvReac Mild Catgut - Verified 10/16/21 11:05 slow healing, inflammed tissue escitalopram AdvReac Unknown Unknown Verified 10/16/21 11:05 Home Medications Medication Instructions Recorded Confirmed Type cetirizine 10 mg tablet (Zyrtec) 10 mg PO QPM 07/07/18 10/19/21 History vit B complx, C-iron 8 mg-folic 2 tab PO QDD 12/19/18 10/19/21 History acid 800 mcg-D3 1,000 unit-zinc tablet (ProRenal) biotin 1 mg capsule 1 mg PO BID cap 02/01/19 10/19/21 History lactobacillus combination no.4 3 3,000 mmu cells PO BIDM cap 02/01/19 10/19/21 History billion cell capsule (Probiotic) calcium acetate(phosphat bind) 667 667 mg PO BID cap 03/12/20 10/19/21 History mg capsule bumetanide 2 mg tablet 2 mg PO BID #180 tab 06/11/20 10/19/21 Rx vitamins A,C,Q-xphg-dqmrgo 14,320 1 cap PO BID 10/10/20 10/19/21 History unit-226 mg-200 unit capsule (PreserVision AREDS) diphenhydramine 25 1 tab PO HS 02/04/21 10/19/21 History mg-acetaminophen 500 mg tablet (Tylenol PM Extra Strength) loperamide 2 mg capsule (Imodium 2 mg PO UD PRN 02/21/21 10/19/21 History A-D) aloe vera 1 applic TOPICAL WK 05/08/21 10/19/21 History labetalol 200 mg tablet See Rx Instructions .ROUTE 05/09/21 10/19/21 Rx .COMPLEX #230 tablet lamotrigine 25 mg tablet (Lamictal) 25 mg PO BID #60 tab 07/03/21 10/19/21 Rx oxcarbazepine 300 mg tablet 150 - 300 mg PO .COMPLEX 30 Days 07/03/21 10/19/21 Rx (Trileptal) #45 tab apixaban 2.5 mg tablet (Eliquis) 2.5 mg PO BID 08/14/21 10/19/21 History hydrocodone 5 mg-acetaminophen 325 1 tab PO TID #90 tab 09/22/21 10/19/21 Rx mg tablet omeprazole 40 mg capsule,delayed 40 mg PO QAM #90 cap 09/29/21 10/19/21 Rx release amoxicillin 500 mg capsule 500 mg PO tid #42 cap 10/09/21 10/19/21 Rx promethazine 25 mg tablet 25 mg PO UD PRN #90 tab 10/09/21 10/19/21 Rx benzonatate 100 mg capsule 100 mg PO TID PRN #30 cap 10/16/21 10/19/21 Rx lidocaine-prilocaine 2.5 %-2.5 % See Rx Instructions .ROUTE .COMPLEX 10/19/21 10/19/21 History topical cream Past Med/Surg History Medical History (Updated 10/20/21 @ 00:03 by Alessandro Alvarenga MD) Anemia Chronic- Hgb 8.2-10.0 for past year Asymptomatic bilateral carotid artery stenosis Atherosclerosis without hemodynamically significant stenosis in the carotid arteries per 06/09/18 carotid doppler Atrial fibrillation On Eliquis- no cardioversion, follows with PCP. PT REPORTS HX AFIB ONE TIME WHILE IN HOSPITAL FOLLOWS DR HARPER Broken arm [id number] SURGERY, states she can not have it fixed due to fistula C. difficile colitis hx (2019) does have chronic diarrhea (r/t removal of gallbladder, per pt). Chronic pain Cirrhosis of liver Diabetes Hx of Type 2 IDDM -- no medications currently since placed on diaylsis. Diabetic nephropathy Disc degeneration, lumbar Encounter for management of wound VAC WOUND VAC LEFT FOOT , REASON FOR CURRENT ANTIBIOTICS PER PT End stage renal disease DIALYSIS M/W/F [place] LEFT ARM FISTULA Erosive (osteo)arthritis Fractured pelvis jul 31, 2021- came to ER , tested for Covid- came back positive- asymptomatic; hospitalized for approx week per patient Gangrene LEFT MIDDLE FINGER, HAS HAD FOR 9 MONTHS GERD (gastroesophageal reflux disease) Gout hx Hiatal hernia HTN (hypertension) PT REPORTS BP HAS BEEN LOW LATELY Hyperlipidemia Left ventricular hypertrophy Moderate/concentric per 05/2020 ECHO- no operating room surgical technician at this time - follows with PCP Lymphedema r/t left arm fracture (unable to be repaired in the past) On anticoagulant therapy Osteoporosis no medications Silke-prosthetic femur fracture at tip of prosthesis Peripheral arterial disease Pulmonary hypertension Per 05/23/20 ECHO= RV systolic pressure elevated > 60 mmHg (severe pulmonary hypertension RVSP 64 mmHg) Scoliosis Shoulder problem RIGHT ROTATOR CUFF PER PT Sleep apnea NO DEVICE Spinal stenosis Trigeminal neuralgia Follows with neuro- last seen 09/03/20- no acute issues. Usually stable on Lamictal and oxcarbazepine. 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 Family History Daughter Breast cancer Unknown Emphysema, unspecified Family/Other Family history of diabetes mellitus NEPHEW Other Family history non-contributory No family history of adverse response to anesthesia Social History Smoking Status: Never smoker Second Hand Exposure: No; Hx Alcohol Use: No Hx Substance Use: No Preferred Language: Irish Communication Ability: Effective Visual Impairment: No Limitations Geometrician Required: No Beliefs That Will Affect Care: None marital status: Current Living Situation: Spouse Current Living Situation Comment: patient lives at home with current occupational status: retired How many Children do You have: 2 Other Information That Helps Us Care for You: No Feels Safe at Home: Yes Safety Concerns: Feels Safe At This Time caffeine: Yes Seatbelt Use: always Assistive Devices: Brace/Splint/Immobilizer, Cane, Denture - Upper, Mechanical Lift, Walker and Wheelchair Review of Systems Review of Systems: All systems reviewed & are unremarkable except as noted in HPI & below Physical Exam Constitutional: well developed; + not well nourished and no acute distress Eyes: + anicteric sclerae; normal pupil size ENMT: external ear and nose normal, oropharynx normal Neck: trachea midline, no thyromegaly Respiratory: normal respiratory effort, lungs clear to auscultation Auscultation: + diminished lung sounds (bibasal); no crackles, no rhonchi and no wheezes Cardiovascular: Rate/Rhythm: regular rate and regular rhythm Heart Sounds: no murmur Gastrointestinal (Abdomen): Inspection/Auscultation: normal bowel sounds Percussion/Palpation: abdomen soft; abdomen nontender, no guarding and abdomen not rigid Musculoskeletal: left knee in immobilizer, not removed, painful slight movements Skin: + ulcer (4th right toe) and + erythema (4th toe right foot) Neurologic: moves all extremities and awake; not confused Psychiatric: Orientation: alert, oriented to person and oriented to place; + not oriented to time Results & Data Results & Data ([facility]) Vital Signs (Past 12 Hours) Vital Signs Temp Pulse Pulse Resp BP BP Pulse Ox 10/19/21 16:20 70 19 96 10/19/21 16:15 72 22 102/55 L 96 10/19/21 16:10 71 12 95 10/19/21 16:00 67 18 103/51 L 96 10/19/21 15:50 72 23 96 10/19/21 15:48 70 18 107/49 L 95 10/19/21 15:47 0 L 107/49 L 95 10/19/21 15:46 56 L 18 10/19/21 15:20 63 19 102/55 L 95 10/19/21 15:15 70 16 97/44 L 95 10/19/21 15:10 73 17 96 10/19/21 15:00 68 18 96/51 L 95 10/19/21 14:50 75 17 95 10/19/21 14:48 63 18 85/50 L 94 10/19/21 14:11 37.1 C 66 18 81/44 L 94 Laboratory Results Abnormal lab results 10/19/21 10/19/21 10/19/21 Range/Units 14:12 14:12 14:19 RBC 2.97 L (4.2-5.4) M/uL Hgb 9.8 L (12.0-16.0) g/dL POC Hgb 10.2 L (12.0-16.0) g/dl Hct 29.7 L (37-47) % POC Hct 30 L (37-47) % RDW Std Deviation 60.9 H (36.4-46.3) fL RDW Coeff of Alejandra 16.9 H (11.5-14.5) % Lymph # (Auto) 0.71 L (1.2-3.4) K/uL [place] # (Auto) 0.60 H (0.11-0.59) K/uL Absolute Nucleated RBC 0.05 H (0-0) K/uL POC Sodium 134 L (135-144) mmol/L Sodium 134 L (136-145) mmol/L POC Potassium 3.1 L (3.3-5.0) mmol/L Potassium 3.2 L (3.5-5.1) mmol/L POC Chloride 97 L (101-112) mmol/L Creatinine 3.11 H (0.6-1.2) mg/dl POC Creatinine 3.0 H (0.6-1.3) mg/dl BUN/Creatinine Ratio 3.9 L (10-20) Calcium 8.2 L (8.5-10.1) mg/dl Alkaline Phosphatase 160 H (34-104) U/L Total Protein 5.0 L (6.0-8.3) gm/dl Albumin 2.1 L (3.4-5.0) gm/dl Lipase 10 L (11-82) U/L Diagnostic Findings HEAD CT NONCONTRAST CT DOSE: HISTORY: fall TECHNIQUE: Multiaxial CT images of the head were performed without the use of intravenous contrast. Automated exposure control was utilized for this study. A dose lowering technique was utilized adhering to the principles of ALARA. Comparison: Head CT 07/31/2021. Findings: Chronic hyperdense secretions again noted within the right maxillary sinus. The mastoid air cells are clear. The calvarium and skull base are intact. There is no mass, hematoma, midline shift, acute infarct. White matter hypodensity is nonspecific but suggestive of microvascular ischemic change. The ventricles and sulci demonstrate mild age-related involutional changes. Impression: No significant change compared to the prior study. No acute intracranial abnormality. CERVICAL SPINE CT CT DOSE: 1672.43 mGy.cm HISTORY: fall TECHNIQUE: Multiaxial CT images of the cervical spine were performed and reformatted in the sagittal and coronal plane without the use of contrast. A dose lowering technique was utilized adhering to the principles of ALARA. COMPARISON: Cervical spine CT 01/24/2020. FINDINGS: No fractures within the cervical spine. Mild to moderate degenerative changes again noted. There is 2 mm of anterolisthesis of C3 on C4 and C4 on C5. This is likely due to the long-standing degenerative change. Partially visualized left pleural effusion. No pneumothorax. IMPRESSION: 1. No fractures within the cervical spine. 2. Partially visualized left pleural effusion. XR chest 1V portable HISTORY: fall COMPARISON: Chest 07/31/2021. FINDINGS: There are low lung volumes. No pneumothorax. The heart is enlarged. There is progressive interstitial/vascular thickening consistent with mild pulmonary edema. Small bilateral pleural fusions and bibasilar densities are also noted. Slightly rotated study. Multiple old, healed left-sided rib fractures. Chronic left shoulder deformity with absence of the left humeral head. IMPRESSION: 1. Cardiomegaly with mild interstitial pulmonary edema and small bilateral pleural effusions. This has progressed in the interval. 2. Left basilar consolidation could represent atelectasis or pneumonia. This will be better appreciated on the same day abdomen and pelvis CT. ABDOMEN AND PELVIS CT WITH IV CONTRAST CT DOSE: HISTORY: Generalized abdominal pain. fall TECHNIQUE: Multiaxial CT images of the abdomen and pelvis were performed following the use of intravenous contrast. A dose lowering technique was utilized adhering to the principles of ALARA. COMPARISON STUDY: Pelvis CT 07/31/2021. FINDINGS: There are small bilateral pleural fusions. Bibasilar densities most pronounced on the left. This could represent atelectasis and/or a pneumonia. The heart is mildly enlarged. No pneumoperitoneum. No pneumatosis. Healing left pubic ring fractures are again noted. Prior fixation of a proximal left femoral fracture. There is also old right inferior pubic ramus fracture, unchanged. Focal deformity at S3 and patchy sclerosis within the sacrum consistent with healing insufficiency fractures. Levoscoliosis of the lumbar spine. There are healing bilateral anterior rib fractures. Focal deformity within the left anterior seventh rib consistent with an age-indeterminate fracture. There is moderate body wall edema. This has progressed in the interval. Prior cholecystectomy. Nodular contour to the liver consistent with mild cirrhosis. The main portal vein is patent. No hydronephrosis. The spleen demonstrates a bandlike area of decreased perfusion. This could be due to the timing of contrast or a splenic infarct. Normal jugular glands. Multiple bilateral renal hypodense lesions. Some of these are technically too small to characterize but statistically represent cysts. Specifically, there is an indeterminate 1 cm lesion within the upper pole the left kidney. No retroperitoneal lymphadenopathy or hematoma. Normal caliber abdominal aorta. Fatty atrophy of the pancreas. No pelvic free fluid. Mild bladder wall thickening. The uterus and ovaries are unremarkable. Trace pelvic free fluid. Mild pelvic floor collapse. No bowel wall thickening or obstruction. Normal appendix. IMPRESSION: 1. Focal deformity within the left anterior seventh rib consistent with an age- indeterminate fracture. Recommend correlation for pain at this location to assess for acute injury. 2. Multiple additional healing/healed fractures as described above. 3. Moderate body wall edema which has progressed. 4. Small bilateral pleural effusions. 5. Bibasilar airspace opacities, left greater than right. These are nonspecific but may represent atelectasis or pneumonia. 6. Mild bladder wall thickening. 7. Cirrhotic liver. 8. An indeterminate 1 cm lesion within the upper pole the left kidney. This could represent a hyperdense cyst or solid renal mass. Follow-up nonemergent renal ultrasound or abdominal MRI can be used for further evaluation. 9. Additional findings as described above. Medications Administered ER Medications Given: NSS 250ml x2 bolus Ondansetron 4mg IV ECG Indication: other (pre-op) Rate (beats per minute): 68 Rhythm: atrial fibrillation Findings: + other (rightward axis) Comparison ECG Date: from (Jul 31, 2021) Change: the following changes noted (Questionable change in initial forces of Anterior leads, Nonspecific T wave abnormality now evident in Anterolateral leads) PG Care Time/CCT Total # of Minutes Spent Total Time Spent with Patient: Total time spent is greater than 50% in coordination of care (as documented) at patient's floor/unit and/or counseling patient: Coding Level of Care Code 64816 Initial Inpt Care Lvl 3 Diagnoses Left femoral shaft fracture S72.302A Atrial fibrillation I48.91 ESRD (end stage renal disease) on dialysis N18.6; Z99.2 Osteomyelitis of fourth toe of right foot M86.9 Trigeminal neuralgia G50.0 Pleural effusion, left J90
--- NOTE | 2021-10-19 19:17 | Orthopedic Consultation ---
Date of Consultation October 19, 2021 Assessment & Plan (1) Silke-prosthetic femur fracture at tip of prosthesis: Discussed findings with the patient. NWB Placed in bulky Valenzuela dressing and knee immobilizer. RICE Will be admitted by hospitalist service. Dr. Peraza is aware and will assume care tomorrow and determine definitive plan. Present on Admission?: Yes History of Present Illness Reason for Consultation: Left periprosthetic femur fracture Requesting Physician: Cara Peraza ( Dr. Alvarenga covering) Attending Physician: Hortencia Morris MD History of Present Illness Kalyani is a 76 yo female with multiple medical problems, non-ambulator, who uses a Skye lift for transfers. She fell earlier today while being transferred by family, sustaining left periprosthetic femur fracture. She is a patient and specifically requested Dr. Peraza. Allergies Allergy/AdvReac Type Severity Reaction Status Date / Time simvastatin Allergy Mild "did not Verified 10/16/21 11:05 feel well while taking", legs hurt metformin Allergy Unknown does not Verified 10/16/21 11:05 remember ANGEL Inhibitors AdvReac Mild Cough Verified 10/16/21 11:05 homatropine AdvReac Mild Nausea Verified 10/16/21 11:05 [From Hycodan (with homatropin)] oxycodone AdvReac Mild Nausea Verified 10/16/21 11:05 pioglitazone AdvReac Mild Nausea Verified 10/16/21 11:05 rosiglitazone AdvReac Mild Nausea Verified 10/16/21 11:05 Twaegga-AYV-AuP Reductase AdvReac Mild LEGS HURT Verified 10/16/21 11:05 Inhibitor [Cnykbmc-Ati-Hwf Reductase Inhibitor] suture AdvReac Mild Catgut - Verified 10/16/21 11:05 slow healing, inflammed tissue escitalopram AdvReac Unknown Unknown Verified 10/16/21 11:05 Home Medications Medication Instructions Recorded Confirmed Type cetirizine 10 mg tablet (Zyrtec) 10 mg PO QPM 07/07/18 10/19/21 History vit B complx, C-iron 8 mg-folic 2 tab PO QDD 12/19/18 10/19/21 History acid 800 mcg-D3 1,000 unit-zinc tablet (ProRenal) biotin 1 mg capsule 1 mg PO BID cap 02/01/19 10/19/21 History lactobacillus combination no.4 3 3,000 mmu cells PO BIDM cap 02/01/19 10/19/21 History billion cell capsule (Probiotic) calcium acetate(phosphat bind) 667 667 mg PO BID cap 03/12/20 10/19/21 History mg capsule bumetanide 2 mg tablet 2 mg PO BID #180 tab 06/11/20 10/19/21 Rx vitamins A,C,R-tomu-prsdmc 14,320 1 cap PO BID 10/10/20 10/19/21 History unit-226 mg-200 unit capsule (PreserVision AREDS) diphenhydramine 25 1 tab PO HS 02/04/21 10/19/21 History mg-acetaminophen 500 mg tablet (Tylenol PM Extra Strength) loperamide 2 mg capsule (Imodium 2 mg PO UD PRN 02/21/21 10/19/21 History A-D) aloe vera 1 applic TOPICAL WK 05/08/21 10/19/21 History labetalol 200 mg tablet See Rx Instructions .ROUTE 05/09/21 10/19/21 Rx .COMPLEX #230 tablet lamotrigine 25 mg tablet (Lamictal) 25 mg PO BID #60 tab 07/03/21 10/19/21 Rx oxcarbazepine 300 mg tablet 150 - 300 mg PO .COMPLEX 30 Days 07/03/21 10/19/21 Rx (Trileptal) #45 tab apixaban 2.5 mg tablet (Eliquis) 2.5 mg PO BID 08/14/21 10/19/21 History hydrocodone 5 mg-acetaminophen 325 1 tab PO TID #90 tab 09/22/21 10/19/21 Rx mg tablet omeprazole 40 mg capsule,delayed 40 mg PO QAM #90 cap 09/29/21 10/19/21 Rx release amoxicillin 500 mg capsule 500 mg PO tid #42 cap 10/09/21 10/19/21 Rx promethazine 25 mg tablet 25 mg PO UD PRN #90 tab 10/09/21 10/19/21 Rx benzonatate 100 mg capsule 100 mg PO TID PRN #30 cap 10/16/21 10/19/21 Rx lidocaine-prilocaine 2.5 %-2.5 % See Rx Instructions .ROUTE .COMPLEX 10/19/21 10/19/21 History topical cream Patient History Medical History (Updated 10/20/21 @ 00:03 by Alessandro Alvarenga MD) Anemia Chronic- Hgb 8.2-10.0 for past year Asymptomatic bilateral carotid artery stenosis Atherosclerosis without hemodynamically significant stenosis in the carotid arteries per 06/09/18 carotid doppler Atrial fibrillation On Eliquis- no cardioversion, follows with PCP. PT REPORTS HX AFIB ONE TIME WHILE IN HOSPITAL FOLLOWS DR HARPER Broken arm [id number] SURGERY, states she can not have it fixed due to fistula C. difficile colitis hx (2019) does have chronic diarrhea (r/t removal of gallbladder, per pt). Chronic pain Cirrhosis of liver Diabetes Hx of Type 2 IDDM -- no medications currently since placed on diaylsis. Diabetic nephropathy Disc degeneration, lumbar Encounter for management of wound VAC WOUND VAC LEFT FOOT , REASON FOR CURRENT ANTIBIOTICS PER PT End stage renal disease DIALYSIS M/W/F [place] LEFT ARM FISTULA Erosive (osteo)arthritis Fractured pelvis jul 31, 2021- came to ER , tested for Covid- came back positive- asymptomatic; hospitalized for approx week per patient Gangrene LEFT MIDDLE FINGER, HAS HAD FOR 9 MONTHS GERD (gastroesophageal reflux disease) Gout hx Hiatal hernia HTN (hypertension) PT REPORTS BP HAS BEEN LOW LATELY Hyperlipidemia Left ventricular hypertrophy Moderate/concentric per 05/2020 ECHO- no field service representative at this time - follows with PCP Lymphedema r/t left arm fracture (unable to be repaired in the past) On anticoagulant therapy Osteoporosis no medications Silke-prosthetic femur fracture at tip of prosthesis Peripheral arterial disease Pulmonary hypertension Per 05/23/20 ECHO= RV systolic pressure elevated > 60 mmHg (severe pulmonary hypertension RVSP 64 mmHg) Scoliosis Shoulder problem RIGHT ROTATOR CUFF PER PT Sleep apnea NO DEVICE Spinal stenosis Trigeminal neuralgia Follows with neuro- last seen 09/03/20- no acute issues. Usually stable on Lamictal and oxcarbazepine. 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 Family History Daughter Breast cancer Unknown Emphysema, unspecified Family/Other Family history of diabetes mellitus NEPHEW Other Family history non-contributory No family history of adverse response to anesthesia Social History Smoking Status: Never smoker Second Hand Exposure: No; Hx Alcohol Use: No Hx Substance Use: No Preferred Language: Ukrainian Communication Ability: Effective Visual Impairment: No Limitations Custodial Foreman Required: No Beliefs That Will Affect Care: None marital status: Current Living Situation: Spouse Current Living Situation Comment: patient lives at home with current occupational status: retired How many Children do You have: 2 Other Information That Helps Us Care for You: No Feels Safe at Home: Yes Safety Concerns: Feels Safe At This Time caffeine: Yes Seatbelt Use: always Assistive Devices: Brace/Splint/Immobilizer, Cane, Denture - Upper, Mechanical Lift, Walker and Wheelchair Review of Systems Review of Systems: All systems reviewed & are unremarkable except as noted in HPI & below Physical Exam Physical Exam: LLE: Transmetatarsal stump intact. PVD changes lower leg. + TTP thigh. Results & Data ([facility]) Vital Signs (Past 12 Hours) Vital Signs Temp Pulse Pulse Resp BP BP Pulse Ox 10/19/21 18:20 66 22 98/42 L 96 10/19/21 18:15 61 17 10/19/21 18:10 71 16 10/19/21 18:00 68 19 96/47 L 10/19/21 17:50 65 14 10/19/21 17:45 66 13 94/44 L 10/19/21 17:40 68 20 10/19/21 17:30 67 13 10/19/21 17:20 16 10/19/21 17:16 68 19 94/48 L 10/19/21 17:10 78 17 93 10/19/21 17:00 67 22 96/53 L 94 10/19/21 16:50 117 H 15 100/50 L 97 10/19/21 16:45 68 19 94 10/19/21 16:40 79 15 96 10/19/21 16:30 68 16 101/47 L 96 10/19/21 16:20 70 19 96 10/19/21 16:15 72 22 102/55 L 96 10/19/21 16:10 71 12 95 10/19/21 16:00 67 18 103/51 L 96 10/19/21 15:50 72 23 96 10/19/21 15:48 70 18 107/49 L 95 10/19/21 15:47 0 L 107/49 L 95 10/19/21 15:46 56 L 18 10/19/21 15:20 63 19 102/55 L 95 10/19/21 15:15 70 16 97/44 L 95 10/19/21 15:10 73 17 96 10/19/21 15:00 68 18 96/51 L 95 10/19/21 14:50 75 17 95 10/19/21 14:48 63 18 85/50 L 94 10/19/21 14:11 37.1 C 66 18 81/44 L 94 Laboratory Results 10/19/21 10/19/21 10/19/21 Range/Units 16:53 14:19 14:12 WBC (4.8-10.8) K/uL RBC (4.2-5.4) M/uL Hgb (12.0-16.0) g/dL POC Hgb 10.2 L (12.0-16.0) g/dl Hct (37-47) % POC Hct 30 L (37-47) % MCV (80-100) fL MCH (25-34) pg MCHC (32-36) g/dL RDW Std Deviation (36.4-46.3) fL RDW Coeff of Alejandra (11.5-14.5) % Plt Count (130-400) K/uL MPV (7.4-10.4) fL Immature Gran % (Auto) % Neut % (Auto) % Lymph % (Auto) % [place] % (Auto) % Eos % (Auto) % Baso % (Auto) % Neut # (Auto) (1.4-6.5) K/uL Lymph # (Auto) (1.2-3.4) K/uL [place] # (Auto) (0.11-0.59) K/uL Eos # (Auto) (0-0.5) K/uL Baso # (Auto) (0-0.2) K/uL Immature Gran # (Auto) (0.00-0.02) K/uL Absolute Nucleated RBC (0-0) K/uL Nucleated RBC % (auto) % POC Sodium 134 L (135-144) mmol/L Sodium 134 L (136-145) mmol/L POC Potassium 3.1 L (3.3-5.0) mmol/L Potassium 3.2 L (3.5-5.1) mmol/L POC Chloride 97 L (101-112) mmol/L Chloride 99 (98-107) mmol/L Carbon Dioxide 26 (21-32) mmol/L POC Total CO2 25 (24-31) mmol/L Anion Gap 9 (3-11) POC Anion Gap 16.0 (16-25) mmol/L POC BUN 11 (7-18) mg/dl BUN 12 (6-23) mg/dl Creatinine 3.11 H (0.6-1.2) mg/dl POC Creatinine 3.0 H (0.6-1.3) mg/dl Est Cr Clr Drug Dosing 12.4 ml/min Est GFR ( Amer) 15.9 ml/min Est GFR (Non-Af Amer) 13.7 ml/min BUN/Creatinine Ratio 3.9 L (10-20) Glucose 83 (70-99(Fasting)) mg/dl POC Glucose (other) 82 (70-99) mg/dl Calcium 8.2 L (8.5-10.1) mg/dl POC Ioniz Calcium Mohan 1.17 (1.12-1.32) mmol/l Total Bilirubin 0.6 (0.2-1.0) mg/dl Direct Bilirubin 0.1 (0-0.2) mg/dl AST 16 (13-39) U/L ALT 14 (7-52) U/L Alkaline Phosphatase 160 H (34-104) U/L Total Protein 5.0 L (6.0-8.3) gm/dl Albumin 2.1 L (3.4-5.0) gm/dl Lipase 10 L (11-82) U/L SARS-CoV-2, RNA, NAAT NEGATIVE (NEGATIVE) 10/19/21 Range/Units 14:12 WBC 7.76 (4.8-10.8) K/uL RBC 2.97 L (4.2-5.4) M/uL Hgb 9.8 L (12.0-16.0) g/dL POC Hgb (12.0-16.0) g/dl Hct 29.7 L (37-47) % POC Hct (37-47) % MCV 100.0 (80-100) fL MCH 33.0 (25-34) pg MCHC 33.0 (32-36) g/dL RDW Std Deviation 60.9 H (36.4-46.3) fL RDW Coeff of Alejandra 16.9 H (11.5-14.5) % Plt Count 146 (130-400) K/uL MPV 9.1 (7.4-10.4) fL Immature Gran % (Auto) 0.3 % Neut % (Auto) 82.2 % Lymph % (Auto) 9.1 % [place] % (Auto) 7.7 % Eos % (Auto) 0.6 % Baso % (Auto) 0.1 % Neut # (Auto) 6.37 (1.4-6.5) K/uL Lymph # (Auto) 0.71 L (1.2-3.4) K/uL [place] # (Auto) 0.60 H (0.11-0.59) K/uL Eos # (Auto) 0.05 (0-0.5) K/uL Baso # (Auto) 0.01 (0-0.2) K/uL Immature Gran # (Auto) 0.02 (0.00-0.02) K/uL Absolute Nucleated RBC 0.05 H (0-0) K/uL Nucleated RBC % (auto) 0.6 % POC Sodium (135-144) mmol/L Sodium (136-145) mmol/L POC Potassium (3.3-5.0) mmol/L Potassium (3.5-5.1) mmol/L POC Chloride (101-112) mmol/L Chloride (98-107) mmol/L Carbon Dioxide (21-32) mmol/L POC Total CO2 (24-31) mmol/L Anion Gap (3-11) POC Anion Gap (16-25) mmol/L POC BUN (7-18) mg/dl BUN (6-23) mg/dl Creatinine (0.6-1.2) mg/dl POC Creatinine (0.6-1.3) mg/dl Est Cr Clr Drug Dosing ml/min Est GFR ( Amer) ml/min Est GFR (Non-Af Amer) ml/min BUN/Creatinine Ratio (10-20) Glucose (70-99(Fasting)) mg/dl POC Glucose (other) (70-99) mg/dl Calcium (8.5-10.1) mg/dl POC Ioniz Calcium Mohan (1.12-1.32) mmol/l Total Bilirubin (0.2-1.0) mg/dl Direct Bilirubin (0-0.2) mg/dl AST (13-39) U/L ALT (7-52) U/L Alkaline Phosphatase (34-104) U/L Total Protein (6.0-8.3) gm/dl Albumin (3.4-5.0) gm/dl Lipase (11-82) U/L SARS-CoV-2, RNA, NAAT (NEGATIVE) Diagnostic Findings XR knee LT 1 or 2V routine CLINICAL HISTORY: fall. Left knee pain. COMPARISON STUDY: Left femur 11/08/2018. FINDINGS: There is a slightly comminuted and displaced oblique fracture within the distal left femoral shaft. The fractures located between the tip of the intramedullary dhaval and knee prosthesis. This demonstrates up to 3 cm of overlap and 3 cm of medial displacement. The bones are osteopenic. Moderate hemarthrosis within the left knee. Vascular calcifications are noted. IMPRESSION: Displaced distal left femoral fracture as described above.
--- NOTE | 2021-10-19 19:37 | XRay Report ---
XR knee LT 1 or 2V routine CLINICAL HISTORY: . Left knee pain. Left femoral fracture. Improved positioning for orthopedic evalua tion. COMPARISON STUDY: Left knee 10/19/2021. FINDINGS: The bones are osteopenic. Redemonstration of the displaced oblique fracture within the dist al left femur or this demonstrates up to 3 cm of overlap and medial displacement. The fracture slight ly comminuted and is located between the intramedullary dhaval tip in femoral prosthesis of a left total knee arthroplasty. There is soft tissue swelling within the left knee and a moderate hemarthrosis, u nchanged. Vascular calcifications are noted. IMPRESSION: Redemonstration of the displaced oblique fracture within the distal left femur with an a ssociated hemarthrosis. ACT 112: Negative or not required by law. Electronically signed by: Marko Wooten M.D. 10/19/2021 7:35 PM
[2021-10-19] MEDS ORDERED: LOPERAMIDE HCL 2 MG CAP PO PRN (22:15)
[2021-10-19] MEDS ORDERED: PROMETHAZINE HCL 25 MG TAB PO PRN (22:15)
[2021-10-19] MEDS ORDERED: BENZONATATE 100 MG CAPSULE PO PRN (22:15)
[2021-10-19] MEDS ORDERED: NALOXONE HCL 0.4 MG/1 ML VIAL/CARP IV PRN (22:18)
[2021-10-19] MEDS ORDERED: HYDROmorphone INJ 0.5 MG/0.5 ML SYR IV PRN ×2 (22:18)
[2021-10-19] MEDS ORDERED: AMOXICILLIN 500 MG CAP PO SCH (22:40)
[2021-10-19] MEDS: CETIRIZINE HCL 10 MG TABLET PO SCH (23:42)
[2021-10-19] MEDS: OXcarbazepine 150 MG TABLET PO SCH (23:42)
[2021-10-19] MEDS: lamoTRIgine 25 MG TAB PO SCH (23:42)
[2021-10-19] MEDS: CALCIUM ACETATE 667 MG CAP/TAB PO SCH (23:42)
[2021-10-19] MEDS: ACETAMINOPHEN 500 MG TAB PO SCH (23:42)
[2021-10-20 05:37] LABS: Basophils # (auto) 0.01 K/uL (0-0.2); Basophils % (auto) 0.2 %; Eosinophils # (auto) 0.02 K/uL (0-0.5); Eosinophils % (auto) 0.4 %; Hematocrit (blood only) 25.8 % (37-47); Hemoglobin 8.6 g/dL (12.0-16.0); Immature Granulocytes # (auto) 0.01 K/uL (0.00-0.02); Immature Granulocytes % (auto) 0.2 %; Lymphocytes # (auto) 0.95 K/uL (1.2-3.4); Lymphocytes % (auto) 17.9 %; Mean Corpuscular Hgb Conc 33.3 g/dL (32-36); Mean Corpuscular Volume 98.9 fL (80-100); Mean Platelet Volume 8.8 fL (7.4-10.4); Monocytes # (auto) 0.43 K/uL (0.11-0.59); Monocytes % (auto) 8.1 %; Neutrophils # (auto) 3.88 K/uL (1.4-6.5); Neutrophils % (auto) 73.2 %; Nucleated RBC # (auto) 0.05 K/uL (0-0); Nucleated RBC % (auto) 0.9 %; Platelet Count 133 K/uL (130-400); RDW Standard Deviation 60.6 fL (36.4-46.3); Red Blood Count 2.61 M/uL (4.2-5.4)
[2021-10-20 06:14] LABS: Anion Gap 8 (3-11); BUN Creatinine Ratio 4.2 (10-20); Blood Urea Nitrogen 14 mg/dl (6-23); Carbon Dioxide 25 mmol/L (21-32); Chloride 101 mmol/L (98-107); Creatinine Clr Calc Pharmacy 10.9 ml/min; Est GFR (African American) 14.7 ml/min; Est GFR (Non-African American) 12.7 ml/min; Glucose 50 mg/dl (70-99(Fasting)); Iron 29 mcg/dl (35-150); Potassium 3.2 mmol/L (3.5-5.1); Sodium 134 mmol/L (136-145); Unsaturated Iron Binding Cap < 55 mcg/dl (155-355)
[2021-10-20] MEDS ORDERED: LACTATED RINGER'S 1,000 ML IV ONE (07:48)
[2021-10-20] MEDS ORDERED: VANCOMYCIN CONSULT ACTIVE PRN (07:50)
[2021-10-20] MEDS ORDERED: PIPERACILL/TAZOBAC CONSULT ACTIVE PRN (07:50)
[2021-10-20] MEDS ORDERED: POTASSIUM CHLORIDE CRTAB 20 MEQ TABCR PO STA (08:00)
[2021-10-20] MEDS ORDERED: PIPERACILLIN/TAZOBACTAM 3.375 GM in DEXTROSE 5% 100 ML IV SCH (08:00)
[2021-10-20] MEDS ORDERED: PIPERACILLIN/TAZOBACTAM 4.5 GM in DEXTROSE 5% 100 ML IV ONE (08:30)
[2021-10-20] MEDS ORDERED: VANCOMYCIN HCL 1,500 MG in SODIUM CHLORIDE 0.9% 500 ML IV ONE (08:30)
[2021-10-20] MEDS: CALCIUM ACETATE 667 MG CAP/TAB PO SCH ×2 (08:39→18:15)
[2021-10-20] MEDS: ADVANCED PROBIOTIC 1250 MG CAPSULE PO SCH ×2 (08:39→18:15)
[2021-10-20] MEDS: ACETAMINOPHEN 500 MG TAB PO SCH ×3 (08:40→20:45)
[2021-10-20] MEDS ORDERED: LABETALOL HCL 200 MG TAB PO SCH (09:00)
[2021-10-20] MEDS ORDERED: EPOETIN ALFA 20,000 UNITS/ML VIAL IV SCH (09:00)
[2021-10-20] MEDS ORDERED: BUMETANIDE 1 MG TAB PO SCH (09:00)
[2021-10-20] MEDS ORDERED: MAGNESIUM SULFATE / D5W 1 GM/100 ML BAG IV ONE (09:15)
[2021-10-20] MEDS: DEXTROSE 5% 1,000 ML IV SCH (09:59)
[2021-10-20] MEDS: CEROVITE ADV FORMULA TAB PO SCH (10:00)
[2021-10-20] MEDS: PANTOprazole 40 MG TAB PO SCH (10:00)
[2021-10-20] MEDS: OXcarbazepine 150 MG TABLET PO SCH ×2 (10:00→20:45)
[2021-10-20] MEDS: lamoTRIgine 25 MG TAB PO SCH ×2 (10:00→20:45)
--- NOTE | 2021-10-20 10:39 | Orthopedic Progress Note ---
Date of Service October 20, 2021 Assessment & Plan (1) Silke-prosthetic femur fracture at tip of prosthesis: Time was spent describing the fracture as well as different treatment options with her at bedside. She is in very poor medical health. She is currently a nonambulator and uses a Skye lift at home. This would be a very difficult fracture to fix given current hardware in place as well as the poor bone quality due to her disuse osteopenia. I think that surgery in this case is contraindicated. We will treat this with a knee immobilizer. She will likely be in the immobilizer for 6 to 8 weeks while the bone heals. I called her and her daughter as well to let them know the treatment plan. She can resume a full diet. Orthopedics will continue to follow. Prashanth Auguste was seen and examined at bedside this morning. Overall she seems comfortable. She is nonweightbearing on that leg before the injury. She had no acute events overnight. Review of Systems All systems reviewed & are unremarkable except as noted in HPI & below. Physical Exam On physical examination of the left leg, she is lying on her side with the knee immobilizer on. Her knee is slightly flexed and the knee immobilizer. She does not seem to have too much pain. She does have a little bit of range of motion of her ankle. She has a transmetatarsal amputation on the right side. Results & Data Results & Data Laboratory Results . Diagnostic Findings X-rays of the left knee show a moderately displaced oblique fracture of the distal femur. It is a periprosthetic fracture between a knee replacement and the tip of the long intramedullary nail. PG Care Time/CCT Total # of Minutes Spent Total Time Spent with Patient: Total time spent is greater than 50% in coordination of care (as documented) at patient's floor/unit and/or counseling patient: Coding Level of Care Code 10977 Subseq Hosp Care Lvl 2 Diagnoses Silke-prosthetic femur fracture at tip of prosthesis M97.8XXA; Z96.649
--- NOTE | 2021-10-20 11:25 | Electrocardiogram Report ---
Test Reason : Blood Pressure : / mmHG Vent. Rate : 068 BPM Atrial Rate : 081 BPM P-R Int : 000 ms QRS Dur : 086 ms QT Int : 350 ms P-R-T Axes : 000 098 -67 degrees QTc Int : 372 ms Atrial fibrillation vs flutter Low voltage QRS Poor R wave progression, consider anterior IA vs. lead placement vs. LVH Abnormal ECG When compared with ECG of 31-JUL-2021 11:34, Nonspecific T wave abnormality now evident in Anterolateral leads Confirmed by Roderick Matos ([id number]) on 10/20/2021 11:25:20 AM Referred By: REFERRED SELF Confirmed By:Dawson Matos
[2021-10-20 11:49] LABS: Appearance Urine Turbid (Clear); Bilirubin Urine 1+ (Negative); Blood Urine 2+ (Negative); Color Urine Amber; Glucose Urine UA Trace (Negative); Ketones Urine Trace (Negative); Leukocyte Esterase Urine 3+ (Negative); Nitrite Urine Negative (Negative); Protein Urine 3+ (Negative); Specific Gravity Urine 1.025 (1.000-1.030); Urobilinogen Urine Negative (Negative)
[2021-10-20 11:52] LABS: Bacteria Urine 4+ (Negative); Epithelial Cell Urine 0-5 /lpf (0-5); WBC Urine >30 /hpf (0-5)
--- NOTE | 2021-10-20 12:05 | Nephrology Consultation ---
Date of Consultation October 20, 2021 Assessment & Plan (1) ESRD (end stage renal disease) on dialysis: (2) Anemia: (3) Silke-prosthetic femur fracture at tip of prosthesis: (4) Traumatic open wound of left lower leg: End-stage renal disease on hemodialysis Wednesday, Wednesday, Wednesday at [facility], admitted with after a fall at home and periprosthetic femur fracture, being treated with a knee immobilizer for 6 to 8 weeks as she is high risk for any surgical complication considering extremely poor health status. Blood pressure relatively low, volume status, electrolyte acceptable. Due for dialysis today. -- Plan for dialysis today as her we regular schedule, UF to reach estimated dry weight. -- Dose medications for GFR less than 10, avoid IV fluid. -- Epogen 67216 units with HD today -- continue on renal vitamin and phosphate binders with meal. Will follow Thank you for allowing me to participate in your patient's care. It was a pleasure to see Kalyani. History of Present Illness Reason for Consultation: ESRD on HD, admitted with fall and femur fracture. Attending Physician: Tin Maxwell History of Present Illness Kalyani Diaz is a 76-year-old female with ESRD on HD admitted to the hospital after a fall at home and periprosthetic femur fracture.Nephrology consult was requested to manage hemodialysis while in hospital.EMR records including labs and imaging reviewed in detail during patient's visit. Kalyani presented to ER yesterday after she fell of the edge of her wheelchair at home. She did not lose consciousness.Imaging showed periprosthetic left femur fracture. she was evaluated by Orthopedics and considering her overall extremely poor health, she would be high risk for surgical complication and plan to continue with knee immobilizer for 6-8 weeks. Has end-stage renal disease, on hemodialysis Wednesday, Wednesday, Wednesday via left brachiocephalic AV fistula. Last dialysis was last Wednesday. Currently blood pressure relatively low but electrolyte, volume status acceptable. She also has osteomyelitis of right 4th toe, has been [facility] in getting amoxicillin. She denies shortness of breath. Pain is better after she received Dilaudid. Allergies Allergy/AdvReac Type Severity Reaction Status Date / Time simvastatin Allergy Mild "did not Verified 10/16/21 11:05 feel well while taking", legs hurt metformin Allergy Unknown does not Verified 10/16/21 11:05 remember ANGEL Inhibitors AdvReac Mild Cough Verified 10/16/21 11:05 homatropine AdvReac Mild Nausea Verified 10/16/21 11:05 [From Hycodan (with homatropin)] oxycodone AdvReac Mild Nausea Verified 10/16/21 11:05 pioglitazone AdvReac Mild Nausea Verified 10/16/21 11:05 rosiglitazone AdvReac Mild Nausea Verified 10/16/21 11:05 Fibtzar-LYG-TkJ Reductase AdvReac Mild LEGS HURT Verified 10/16/21 11:05 Inhibitor [Lfqpfqm-Zmf-Bai Reductase Inhibitor] suture AdvReac Mild Catgut - Verified 10/16/21 11:05 slow healing, inflammed tissue escitalopram AdvReac Unknown Unknown Verified 10/16/21 11:05 Home Medications Medication Instructions Recorded Confirmed Type cetirizine 10 mg tablet (Zyrtec) 10 mg PO QPM 07/07/18 10/19/21 History vit B complx, C-iron 8 mg-folic 2 tab PO QDD 12/19/18 10/19/21 History acid 800 mcg-D3 1,000 unit-zinc tablet (ProRenal) biotin 1 mg capsule 1 mg PO BID cap 02/01/19 10/19/21 History lactobacillus combination no.4 3 3,000 mmu cells PO BIDM cap 02/01/19 10/19/21 History billion cell capsule (Probiotic) calcium acetate(phosphat bind) 667 667 mg PO BID cap 03/12/20 10/19/21 History mg capsule bumetanide 2 mg tablet 2 mg PO BID #180 tab 06/11/20 10/19/21 Rx vitamins A,C,L-sein-koxgqc 14,320 1 cap PO BID 10/10/20 10/19/21 History unit-226 mg-200 unit capsule (PreserVision AREDS) diphenhydramine 25 1 tab PO HS 02/04/21 10/19/21 History mg-acetaminophen 500 mg tablet (Tylenol PM Extra Strength) loperamide 2 mg capsule (Imodium 2 mg PO UD PRN 02/21/21 10/19/21 History A-D) aloe vera 1 applic TOPICAL WK 05/08/21 10/19/21 History labetalol 200 mg tablet See Rx Instructions .ROUTE 12/03/21 05/15/22 Rx .COMPLEX #230 tablet lamotrigine 25 mg tablet (Lamictal) 25 mg PO BID #60 tab 07/03/21 10/19/21 Rx oxcarbazepine 300 mg tablet 150 - 300 mg PO .COMPLEX 30 Days 07/03/21 10/19/21 Rx (Trileptal) #45 tab apixaban 2.5 mg tablet (Eliquis) 2.5 mg PO BID 08/14/21 10/19/21 History hydrocodone 5 mg-acetaminophen 325 1 tab PO TID #90 tab 09/22/21 10/19/21 Rx mg tablet omeprazole 40 mg capsule,delayed 40 mg PO QAM #90 cap 09/29/21 10/19/21 Rx release amoxicillin 500 mg capsule 500 mg PO tid #42 cap 10/09/21 10/19/21 Rx promethazine 25 mg tablet 25 mg PO UD PRN #90 tab 10/09/21 10/19/21 Rx benzonatate 100 mg capsule 100 mg PO TID PRN #30 cap 10/16/21 10/19/21 Rx lidocaine-prilocaine 2.5 %-2.5 % See Rx Instructions .ROUTE .COMPLEX 10/19/21 10/19/21 History topical cream Patient History Medical History (Updated 10/20/21 @ 00:03 by Alessandro Alvarenga MD) Anemia Chronic- Hgb 8.2-10.0 for past year Asymptomatic bilateral carotid artery stenosis Atherosclerosis without hemodynamically significant stenosis in the carotid a rteries per 06/09/18 carotid doppler Atrial fibrillation On Eliquis- no cardioversion, follows with PCP. PT REPORTS HX AFIB ONE TIME WHILE IN HOSPITAL FOLLOWS DR HARPER Broken arm [id number] SURGERY, states she can not have it fixed due to fistula C. difficile colitis hx (2019) does have chronic diarrhea (r/t removal of gallbladder, per pt). Chronic pain Cirrhosis of liver Diabetes Hx of Type 2 IDDM -- no medications currently since placed on diaylsis. Diabetic nephropathy Disc degeneration, lumbar Encounter for management of wound VAC WOUND VAC LEFT FOOT , REASON FOR CURRENT ANTIBIOTICS PER PT End stage renal disease DIALYSIS M/W/F [place] LEFT ARM FISTULA Erosive (osteo)arthritis Fractured pelvis jul 31, 2021- came to ER , tested for Covid- came back positive- asymptomatic; hospitalized for approx week per patient Gangrene LEFT MIDDLE FINGER, HAS HAD FOR 9 MONTHS GERD (gastroesophageal reflux disease) Gout hx Hiatal hernia HTN (hypertension) PT REPORTS BP HAS BEEN LOW LATELY Hyperlipidemia Left ventricular hypertrophy Moderate/concentric per 05/2020 ECHO- no handle attacher at this time - follows with PCP Lymphedema r/t left arm fracture (unable to be repaired in the past) On anticoagulant therapy Osteoporosis no medications Islke-prosthetic femur fracture at tip of prosthesis Peripheral arterial disease Pulmonary hypertension Per 05/23/20 ECHO= RV systolic pressure elevated > 60 mmHg (severe pulmonary hypertension RVSP 64 mmHg) Scoliosis Shoulder problem RIGHT ROTATOR CUFF PER PT Sleep apnea NO DEVICE Spinal stenosis Trigeminal neuralgia Follows with neuro- last seen 09/03/20- no acute issues. Usually stable on Lamictal and oxcarbazepine. 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 Family History Daughter Breast cancer Unknown Emphysema, unspecified Family/Other Family history of diabetes mellitus NEPHEW Other Family history non-contributory No family history of adverse response to anesthesia Social History Smoking Status: Never smoker Second Hand Exposure: No; Hx Alcohol Use: No Hx Substance Use: No Preferred Language: Pakistani Communication Ability: Effective Visual Impairment: No Limitations Chemical Supervisor Required: No Beliefs That Will Affect Care: None marital status: Current Living Situation: Spouse Current Living Situation Comment: patient lives at home with current occupational status: retired How many Children do You have: 2 Other Information That Helps Us Care for You: No Feels Safe at Home: Yes Safety Concerns: Feels Safe At This Time caffeine: Yes Seatbelt Use: always Assistive Devices: Brace/Splint/Immobilizer, Cane, Denture - Upper, Mechanical Lift, Walker and Wheelchair Review of Systems Review of Systems: Detail ROS was negative except mentioned in HPI. Physical Exam Constitutional: WD/WN, vitals as above + ill appearing and + frail appearing; no acute distress Eyes: + anicteric sclerae ENMT: Ears: no hearing impairment Neck: normal visual inspection Respiratory: normal respiratory effort; no respiratory distress and no cough Auscultation: + diminished lung sounds Cardiovascular: Rate/Rhythm: regular rate and regular rhythm Heart Sounds: normal S1 and normal S2 Extremities: no edema Gastrointestinal (Abdomen): Inspection/Auscultation: abdomen normal to inspection and normal bowel sounds Percussion/Palpation: abdomen soft; abdomen nontender Musculoskeletal: Extremities: extremities normal to inspection Skin: + lesion, + ulcer and + skin atrophy Neurologic: no focal motor deficits and not confused Psychiatric: Orientation: alert and oriented x 3 Affect: euthymic affect Results & Data ([facility]) Vital Signs (Past 12 Hours) Vital Signs Temp Pulse Resp BP Pulse Ox 10/20/21 10:27 36.7 C 73 16 96/60 L 91 10/20/21 06:27 36.8 C 77 18 84/47 L 93 PG Care Time/CCT Total # of Minutes Spent Total Time Spent with Patient: Total time spent is greater than 50% in coordination of care (as documented) at patient's floor/unit and/or counseling patient: Coding Level of Care Code 90284 Initial Inpt Care Lvl 3 Diagnoses ESRD (end stage renal disease) on dialysis N18.6; Z99.2 Anemia D64.9 Silke-prosthetic femur fracture at tip of prosthesis M97.8XXA; Z96.649 Traumatic open wound of left lower leg S81.802A
--- NOTE | 2021-10-20 12:10 | Hospitalist Progress Note ---
Date of Service October 20, 2021 Assessment & Plan (1) Severe sepsis: Plan: Low BP, hypoglycemia, markedly elevated procalcitonin, etc all c/w severe sepsis. Sources - LLL pneumonia, UTI. Blood cultures pending. Urine culture pending. Start zosyn. Start vancomycin. Repeat cbc am. Follow cultures. (2) Hypotension: Plan: 2nd to #1. LR bolus 1 L x 1 given this am for such. HOLD all anti-hypertensives, bumex, etc. Cortisol level checked & was adequate. Start midodrine 5mg TID for BP support; consider dose increase if necessary. Follow H/H on cbc. (3) LLL pneumonia: Plan: Suspected based on plain films as well as lung cuts from CT a/p. I cannot rule out that the enlarging pleural effusion on left isn't from trauma/rib fracture (ie hemorrhagic pleural effusion). She is at risk of gram negatives given frequent healthcare exposures. Start zosyn. Start vancomycin. Check MRSA WAD IMPREGNATOR swab. (4) UTI (urinary tract infection): Plan: U/a suspicious for such. Start abx as above. (5) Pleural effusion, left: Plan: In light of rib fracture watch for worsening. At risk of hemothorax given recent trauma, Eliquis use, etc. Consider repeat CXR on 10/21. (6) Left femoral shaft fracture: Plan: Appreciate orthopedics consultation. non-operative Rx advised. Knee immobilizer. Non-weight bearing status to the LLE. (7) Fracture of rib of left side: Plan: 7th rib could certainly be contributing to her left sided back pain. pain control. consider lidoderm patches. tylenol 1gm TID. (8) Atrial fibrillation: Plan: Rate controlled. Unfortunately will need to hold beta maria e due to hypotension. Eliquis on hold - trend CBC. Resume Eliquis if H/H remain stable and Left pleural effusion remains stable. (9) ESRD (end stage renal disease) on dialysis: Plan: [place]ed [facility] [place] management Schedule - M/W/F AV fistula - [place] (10) Osteomyelitis of fourth toe of right foot: Plan: Follows with [facility]. She is on amoxicillin prescribed by the wound care clinic presumably for this toe. Consult wound care nurse for ongoing chronic management of all of her skin issues. (11) Trigeminal neuralgia: Plan: Continue Lamictal and oxcarbazepine Send lamictal level (12) Anemia: Plan: Baseline Hb is high 9's 8.6 this am Certainly blood draws contributed to drop Can't rule out that some of the pleural effusion on left isn't from bleeding in midst of rib fracture/fall CBC in am (13) Skin tear of left forearm without complication: Plan: Wound care consult Local wound care Add Vit C+Zinc to promote wound healing (14) Hypoglycemia: Plan: Suspect 2nd to #1 Start dextrose 5% at 30cc/hr to maintain euglycemia Cortisol level noted to be >20 (15) Hypokalemia: Plan: replace repeat level am replace low mag (16) Hypomagnesemia: Plan: replace repeat level am (17) DVT prophylaxis: Plan: resume Eliquis 2.5mg BID if H/H remain stable (18) Cirrhosis of liver: Plan: noted on imaging etiology? LAMBERT? other? (19) Diabetes: Plan: HbA1c <4.3% in 09/2021 chronic anemia from ESRD could make a1c false but [id number] she is not on meds for DM and her BSGs are quite low in the face of sepsis Dextrose infusion for hypoglycemia (20) Amputation of left middle finger: Plan: 09/30/21 - [facility] Orthopedics 2nd to complications from left arm AV fistula issues/occlusion? local wound care wound care consult (21) GERD (gastroesophageal reflux disease): Plan: PPI Plan: attempted to call pt's spouse no answer left message on voicemail very complicated ill individual requiring complex care coordination and Rx of severe sepsis time 75 minutes Admission and Anticipated Discharge Date Admission Date: October 19, 2021 Subjective pt c/o left mid back pain - not pleuritic she "always has back pain" chronically but this is worse than baseline she also c/o distal left femur pain she is coughing, largely nonproductive denies dyspnea at rest or orthopnea appetite fair at best denies chest pain chest abd pain Review of Systems Review of Systems: gen - feels weak & fatigued, no fevers cv - no substernal chest pain GI - no pain, nausea pulm - no sputum Physical Exam Physical Exam: gen - chronically unwell appearing, NAD, awake mouth - MM dry heart - irregular, s1 s2 lungs - extensive crackles L base, no wheeze, no increased work of breathing; decreased BS L base abd - multiple hernias, BS+, NT, soft vascular - left arm AV fistula with bruit musculo - nontender to palpation along c-spine, t-spine and l-spine; left femur in knee immobilizer; TMA left foot; right foot, 4th digit - very tiny connection between the toe and actual foot skin - numerous bruises on back, arms, legs; Left foot - 5th metatarsal ulceration with scant drainage; pressure injury/decubitus sacral region; left 3rd finger distal amputation (done 09/30 at [facility] [place] per records) with exudate, mild erythema and gross irritation; skin tear left elbow region 1-2+ edema b/l legs, pulses b/l feet 1+ Results & Data Results & Data ([facility]) Vital Signs (Past 12 Hours) Vital Signs Temp Pulse Resp BP Pulse Ox 10/20/21 10:27 36.7 C 73 16 96/60 L 91 10/20/21 06:27 36.8 C 77 18 84/47 L 93 Laboratory Results Laboratory Results - last 24 hr 10/19/21 10/19/21 10/19/21 14:12 14:12 14:19 WBC 7.76 RBC 2.97 L Hgb 9.8 L POC Hgb 10.2 L Hct 29.7 L POC Hct 30 L MCV 100.0 MCH 33.0 MCHC 33.0 RDW Std Deviation 60.9 H RDW Coeff of Alejandra 16.9 H Plt Count 146 MPV 9.1 Immature Gran % (Auto) 0.3 Neut % (Auto) 82.2 Lymph % (Auto) 9.1 [place] % (Auto) 7.7 Eos % (Auto) 0.6 Baso % (Auto) 0.1 Neut # (Auto) 6.37 Lymph # (Auto) 0.71 L [place] # (Auto) 0.60 H Eos # (Auto) 0.05 Baso # (Auto) 0.01 Immature Gran # (Auto) 0.02 Absolute Nucleated RBC 0.05 H Nucleated RBC % (auto) 0.6 POC Sodium 134 L Sodium 134 L POC Potassium 3.1 L Potassium 3.2 L POC Chloride 97 L Chloride 99 Carbon Dioxide 26 POC Total CO2 25 Anion Gap 9 POC Anion Gap 16.0 POC BUN 11 BUN 12 Creatinine 3.11 H POC Creatinine 3.0 H Est Cr Clr Drug Dosing 12.4 Est GFR ( Amer) 15.9 Est GFR (Non-Af Amer) 13.7 BUN/Creatinine Ratio 3.9 L Glucose 83 POC Glucose POC Glucose (other) 82 Lactate Calcium 8.2 L POC Ioniz Calcium Mohan 1.17 Magnesium Iron TIBC Unsaturated IBC Transferrin % Sat Total Bilirubin 0.6 Direct Bilirubin 0.1 AST 16 ALT 14 Alkaline Phosphatase 160 H Total Protein 5.0 L Albumin 2.1 L Lipase 10 L Procalcitonin Random Cortisol Urine Color Urine Appearance Urine pH Ur Specific [place] Urine Protein Urine Glucose (UA) Urine Ketones Urine Blood Urine Nitrite Urine Bilirubin Urine Urobilinogen Ur Leukocyte Esterase Urine RBC Urine WBC Ur Epithelial Cells Urine Bacteria Hyaline Casts Granular Casts Nasal Screen MRSA (PCR) Lamotrigine Hepatitis Be Antibody Hepatitis Be Antigen SARS-CoV-2, RNA, NAAT 10/19/21 10/19/21 10/20/21 16:53 20:47 02:20 WBC RBC Hgb POC Hgb Hct POC Hct MCV MCH MCHC RDW Std Deviation RDW Coeff of Alejandra Plt Count MPV Immature Gran % (Auto) Neut % (Auto) Lymph % (Auto) [place] % (Auto) Eos % (Auto) Baso % (Auto) Neut # (Auto) Lymph # (Auto) [place] # (Auto) Eos # (Auto) Baso # (Auto) Immature Gran # (Auto) Absolute Nucleated RBC Nucleated RBC % (auto) POC Sodium Sodium POC Potassium Potassium POC Chloride Chloride Carbon Dioxide POC Total CO2 Anion Gap POC Anion Gap POC BUN BUN Creatinine POC Creatinine Est Cr Clr Drug Dosing Est GFR ( Amer) Est GFR (Non-Af Amer) BUN/Creatinine Ratio Glucose POC Glucose 73 POC Glucose (other) Lactate Calcium POC Ioniz Calcium Mohan Magnesium Iron TIBC Unsaturated IBC Transferrin % Sat Total Bilirubin Direct Bilirubin AST ALT Alkaline Phosphatase Total Protein Albumin Lipase Procalcitonin Random Cortisol Urine Color Urine Appearance Urine pH Ur Specific [place] Urine Protein Urine Glucose (UA) Urine Ketones Urine Blood Urine Nitrite Urine Bilirubin Urine Urobilinogen Ur Leukocyte Esterase Urine RBC Urine WBC Ur Epithelial Cells Urine Bacteria Hyaline Casts Granular Casts Nasal Screen MRSA (PCR) Negative Lamotrigine Hepatitis Be Antibody Hepatitis Be Antigen SARS-CoV-2, RNA, NAAT NEGATIVE 10/20/21 10/20/21 10/20/21 05:14 05:14 05:14 WBC 5.30 RBC 2.61 L Hgb 8.6 L POC Hgb Hct 25.8 L POC Hct MCV 98.9 MCH 33.0 MCHC 33.3 RDW Std Deviation 60.6 H RDW Coeff of Alejandra 17.0 H Plt Count 133 MPV 8.8 Immature Gran % (Auto) 0.2 Neut % (Auto) 73.2 Lymph % (Auto) 17.9 [place] % (Auto) 8.1 Eos % (Auto) 0.4 Baso % (Auto) 0.2 Neut # (Auto) 3.88 Lymph # (Auto) 0.95 L [place] # (Auto) 0.43 Eos # (Auto) 0.02 Baso # (Auto) 0.01 Immature Gran # (Auto) 0.01 Absolute Nucleated RBC 0.05 H Nucleated RBC % (auto) 0.9 POC Sodium Sodium 134 L POC Potassium Potassium 3.2 L POC Chloride Chloride 101 Carbon Dioxide 25 POC Total CO2 Anion Gap 8 POC Anion Gap POC BUN BUN 14 Creatinine 3.31 H POC Creatinine Est Cr Clr Drug Dosing 10.9 Est GFR ( Amer) 14.7 Est GFR (Non-Af Amer) 12.7 BUN/Creatinine Ratio 4.2 L Glucose 50 L* POC Glucose POC Glucose (other) Lactate Calcium 8.0 L POC Ioniz Calcium Mohan Magnesium Iron 29 L TIBC TNP Unsaturated IBC < 55 L Transferrin % Sat TNP Total Bilirubin Direct Bilirubin AST ALT Alkaline Phosphatase Total Protein Albumin Lipase Procalcitonin 22.91 H Random Cortisol Urine Color Urine Appearance Urine pH Ur Specific [place] Urine Protein Urine Glucose (UA) Urine Ketones Urine Blood Urine Nitrite Urine Bilirubin Urine Urobilinogen Ur Leukocyte Esterase Urine RBC Urine WBC Ur Epithelial Cells Urine Bacteria Hyaline Casts Granular Casts Nasal Screen MRSA (PCR) Lamotrigine Hepatitis Be Antibody Hepatitis Be Antigen SARS-CoV-2, RNA, NAAT 10/20/21 10/20/21 10/20/21 06:41 06:59 08:12 WBC RBC Hgb POC Hgb Hct POC Hct MCV MCH MCHC RDW Std Deviation RDW Coeff of Alejandra Plt Count MPV Immature Gran % (Auto) Neut % (Auto) Lymph % (Auto) [place] % (Auto) Eos % (Auto) Baso % (Auto) Neut # (Auto) Lymph # (Auto) [place] # (Auto) Eos # (Auto) Baso # (Auto) Immature Gran # (Auto) Absolute Nucleated RBC Nucleated RBC % (auto) POC Sodium Sodium POC Potassium Potassium POC Chloride Chloride Carbon Dioxide POC Total CO2 Anion Gap POC Anion Gap POC BUN BUN Creatinine POC Creatinine Est Cr Clr Drug Dosing Est GFR ( Amer) Est GFR (Non-Af Amer) BUN/Creatinine Ratio Glucose POC Glucose 63 L* 75 71 POC Glucose (other) Lactate Calcium POC Ioniz Calcium Mohan Magnesium Iron TIBC Unsaturated IBC Transferrin % Sat Total Bilirubin Direct Bilirubin AST ALT Alkaline Phosphatase Total Protein Albumin Lipase Procalcitonin Random Cortisol Urine Color Urine Appearance Urine pH Ur Specific [place] Urine Protein Urine Glucose (UA) Urine Ketones Urine Blood Urine Nitrite Urine Bilirubin Urine Urobilinogen Ur Leukocyte Esterase Urine RBC Urine WBC Ur Epithelial Cells Urine Bacteria Hyaline Casts Granular Casts Nasal Screen MRSA (PCR) Lamotrigine Hepatitis Be Antibody Hepatitis Be Antigen SARS-CoV-2, RNA, NAAT 10/20/21 10/20/21 10/20/21 08:14 08:14 08:14 WBC RBC Hgb POC Hgb Hct POC Hct MCV MCH MCHC RDW Std Deviation RDW Coeff of Alejandra Plt Count MPV Immature Gran % (Auto) Neut % (Auto) Lymph % (Auto) [place] % (Auto) Eos % (Auto) Baso % (Auto) Neut # (Auto) Lymph # (Auto) [place] # (Auto) Eos # (Auto) Baso # (Auto) Immature Gran # (Auto) Absolute Nucleated RBC Nucleated RBC % (auto) POC Sodium Sodium POC Potassium Potassium POC Chloride Chloride Carbon Dioxide POC Total CO2 Anion Gap POC Anion Gap POC BUN BUN Creatinine POC Creatinine Est Cr Clr Drug Dosing Est GFR ( Amer) Est GFR (Non-Af Amer) BUN/Creatinine Ratio Glucose POC Glucose POC Glucose (other) Lactate 1.0 Calcium POC Ioniz Calcium Mohan Magnesium 1.6 L Iron TIBC Unsaturated IBC Transferrin % Sat Total Bilirubin Direct Bilirubin AST ALT Alkaline Phosphatase Total Protein Albumin Lipase Procalcitonin Random Cortisol 17.90 Urine Color Urine Appearance Urine pH Ur Specific [place] Urine Protein Urine Glucose (UA) Urine Ketones Urine Blood Urine Nitrite Urine Bilirubin Urine Urobilinogen Ur Leukocyte Esterase Urine RBC Urine WBC Ur Epithelial Cells Urine Bacteria Hyaline Casts Granular Casts Nasal Screen MRSA (PCR) Lamotrigine Hepatitis Be Antibody Hepatitis Be Antigen SARS-CoV-2, RNA, NAAT 10/20/21 10/20/21 10/20/21 08:14 08:14 Unknown WBC RBC Hgb POC Hgb Hct POC Hct MCV MCH MCHC RDW Std Deviation RDW Coeff of Alejandra Plt Count MPV Immature Gran % (Auto) Neut % (Auto) Lymph % (Auto) [place] % (Auto) Eos % (Auto) Baso % (Auto) Neut # (Auto) Lymph # (Auto) [place] # (Auto) Eos # (Auto) Baso # (Auto) Immature Gran # (Auto) Absolute Nucleated RBC Nucleated RBC % (auto) POC Sodium Sodium POC Potassium Potassium POC Chloride Chloride Carbon Dioxide POC Total CO2 Anion Gap POC Anion Gap POC BUN BUN Creatinine POC Creatinine Est Cr Clr Drug Dosing Est GFR ( Amer) Est GFR (Non-Af Amer) BUN/Creatinine Ratio Glucose POC Glucose POC Glucose (other) Lactate Calcium POC Ioniz Calcium Mohan Magnesium Iron TIBC Unsaturated IBC Transferrin % Sat Total Bilirubin Direct Bilirubin AST ALT Alkaline Phosphatase Total Protein Albumin Lipase Procalcitonin Random Cortisol Urine Color Richa Urine Appearance Turbid A Urine pH 7.0 Ur Specific [place] 1.025 Urine Protein 3+ H Urine Glucose (UA) Trace H Urine Ketones Trace H Urine Blood 2+ H Urine Nitrite Negative Urine Bilirubin 1+ H Urine Urobilinogen Negative Ur Leukocyte Esterase 3+ H Urine RBC 10-30 H Urine WBC >30 H Ur Epithelial Cells 0-5 Urine Bacteria 4+ H Hyaline Casts 5-10 H Granular Casts 1-5 H Nasal Screen MRSA (PCR) Lamotrigine Pending Hepatitis Be Antibody Pending Hepatitis Be Antigen Pending SARS-CoV-2, RNA, NAAT Diagnostic Findings blood and urine cultures pending PG Care Time/CCT Total # of Minutes Spent Total Time Spent with Patient: Total time spent is greater than 50% in coordination of care (as documented) at patient's floor/unit and/or counseling patient: Prolonged Care Time Prolonged Care Time: Yes 75 Coding Level of Care Code 92704 Subseq Hosp Care Lvl 3 (25 - SIGNIFICANT, SEPARATELY IDENTIFIABLE ) Diagnoses Left femoral shaft fracture S72.302A Atrial fibrillation I48.91 ESRD (end stage renal disease) on dialysis N18.6; Z99.2 Osteomyelitis of fourth toe of right foot M86.9 Trigeminal neuralgia G50.0 Severe sepsis A41.9; R65.20 Anemia D64.9 Skin tear of left forearm without complication S51.812A Hypoglycemia E16.2 LLL pneumonia J18.9 UTI (urinary tract infection) N39.0 Fracture of rib of left side S22.32XA Hypokalemia E87.6 Hypomagnesemia E83.42 Hypotension I95.9 DVT prophylaxis Z29.9 Cirrhosis of liver K74.60 Diabetes E11.9 Diabetes mellitus [facility] insulin use: without exterminator termite use Diabetes mellitus complication detail: with chronic kidney disease Chronic kidney disease stage: on chronic dialysis Amputation of left middle finger S68.113A GERD (gastroesophageal reflux disease) K21.9 Pleural effusion, left J90 Additional Codes Prolonged Care Time - Prolonged Care Time: Yes ([id number]) Time Spent (min) 75 (1) Diabetes Diabetes mellitus exterminator termite insulin use: without exterminator termite use Diabetes mellitus complication detail: with chronic kidney disease Chronic kidney disease stage: on chronic dialysis
--- NOTE | 2021-10-20 12:38 | XRay Report ---
XR chest 2V PA/lateral CLINICAL HISTORY: ?PNA/pleural effusion COMPARISON STUDY: Chest radiograph October 19, 2021. FINDINGS: Severe degenerative changes of the right shoulder and old deformity of the proximal left hu merus are incidentally noted. Patient is rotated. Moderate left pleural effusion has increased in siz e since prior exam. Left basilar opacity persists. Pulmonary edema persists. There is a small right p leural effusion. No pneumothorax. IMPRESSION: 1. Increase in size of a moderate left pleural effusion. Persistent left basilar opacity which could reflect pneumonia or atelectasis. 2. No significant change in pulmonary edema and a small right pleural effusion. ACT 112: Negative or not required by law. Electronically signed by: Dayron Cardozo M.D. 10/20/2021 12:37 PM
[2021-10-20] MEDS: MIDODRINE HCL 2.5 MG TAB PO SCH ×2 (13:20→18:15)
--- NOTE | 2021-10-20 13:53 | Pharmacy Report ---
Pharmacy Vanc AUC Short Note - Date of Service October 20, 2021 - Assessment & Plan Assessment 76 year old F receiving empiric vancomycin and Zosyn for treatment of possible SSTI given multiple open wounds on LLE. Left foot culture (10/09) grew MSSA, various other wound cultures this year have grown Serratia marcescens, group B beta strep, Corynebacterium, and Finegoldia magna. Blood x2 and urine cultures pending. Patient has ESRD requiring chronic HD MWF. Hemodialysis scheduled for today. Day # 1 of antimicrobial therapy Plan Vancomycin * Loading dose of 1500 mg IV x 1 (~22 mg/kg) * Will dose by random vanco level in light of hemodialysis, random level ordered for tomorrow morning Zosyn * 3.375 g IV q12h in light of hemodialysis Pharmacy will continue to follow and will adjust dose/frequency as necessary. Thank you.
[2021-10-20] MEDS: PIPERACILLIN/TAZOBACTAM 3.375 GM in DEXTROSE 5% 100 ML IV SCH (18:14)
[2021-10-20] MEDS: NEPHROCAPS PO SCH (18:16)
[2021-10-20] MEDS: CETIRIZINE HCL 10 MG TABLET PO SCH (20:45)
[2021-10-20] MEDS ORDERED: NON-FORMULARY MEDICATION (Diphenhydramine-Acetaminophen [Tylenol Pm Extra Strength] 25-500 PO SCH (21:00)
[2021-10-21] MEDS ORDERED: SODIUM CHLORIDE 0.9% 1000ML 250 ML IV ONE (02:20)
[2021-10-21] MEDS: PIPERACILLIN/TAZOBACTAM 3.375 GM in DEXTROSE 5% 100 ML IV SCH ×2 (05:29→17:15)
[2021-10-21] MEDS ORDERED: HYDROmorphone INJ 0.5 MG/0.5 ML SYR IV PRN (05:40)
[2021-10-21 06:31] LABS: Basophils # (auto) 0.01 K/uL (0-0.2); Basophils % (auto) 0.1 %; Eosinophils # (auto) 0.07 K/uL (0-0.5); Eosinophils % (auto) 0.8 %; Hematocrit (blood only) 27.8 % (37-47); Hemoglobin 9.3 g/dL (12.0-16.0); Immature Granulocytes # (auto) 0.04 K/uL (0.00-0.02); Immature Granulocytes % (auto) 0.5 %; Lymphocytes # (auto) 1.08 K/uL (1.2-3.4); Lymphocytes % (auto) 12.8 %; Mean Corpuscular Hgb Conc 33.5 g/dL (32-36); Mean Corpuscular Volume 98.6 fL (80-100); Mean Platelet Volume 9.5 fL (7.4-10.4); Monocytes # (auto) 0.71 K/uL (0.11-0.59); Monocytes % (auto) 8.4 %; Neutrophils # (auto) 6.52 K/uL (1.4-6.5); Neutrophils % (auto) 77.4 %; Nucleated RBC # (auto) 0.12 K/uL (0-0); Nucleated RBC % (auto) 1.4 %; Platelet Count 155 K/uL (130-400); RDW Coefficient of Variation 17.5 % (11.5-14.5); RDW Standard Deviation 60.9 fL (36.4-46.3); Red Blood Count 2.82 M/uL (4.2-5.4); White Blood Count 8.43 K/uL (4.8-10.8)
--- NOTE | 2021-10-21 06:59 | Orthopedic Progress Note ---
Date of Service October 21, 2021 Assessment & Plan (1) Silke-prosthetic femur fracture at tip of prosthesis: We will continue to treat this nonoperatively. She will be in the knee immobilizer for about 6 to 8 weeks, depending on how the x-rays look in the office. She will be nonweightbearing. This will take about 3 months to heal. She is orthopedically stable for discharge when medically ready. Full orthopedic discharge instructions were placed in the discharge summary. If they have any other questions please feel free to [place] text me or call me personally on my cell phone at [phone]. Prashanth Auguste was seen and examined at bedside this morning. Overall she is doing fairly well. She denies any much pain in the left knee. She was able to get some sleep last night. She has no complaints. Review of Systems All systems reviewed & are unremarkable except as noted in HPI & below. Physical Exam On physical examination of the left knee, the knee immobilizer is in place. Her knee is slightly flexed. Results & Data Results & Data Laboratory Results . Diagnostic Findings . PG Care Time/CCT Total # of Minutes Spent Total Time Spent with Patient: Total time spent is greater than 50% in coordination of care (as documented) at patient's floor/unit and/or counseling patient: Coding Level of Care Code 10840 Subseq Hosp Care Lvl 2 Diagnoses Silke-prosthetic femur fracture at tip of prosthesis M97.8XXA; Z96.649
[2021-10-21 07:02] LABS: BUN Creatinine Ratio 3.2 (10-20); Creatinine Clr Calc Pharmacy 16.4 ml/min; Est GFR (African American) 24.5 ml/min; Est GFR (Non-African American) 21.1 ml/min; Magnesium 1.7 mg/dl (1.7-2.4); Potassium 3.8 mmol/L (3.5-5.1)
[2021-10-21] MEDS: LIDOCAINE 5% 1 PATCH TD SCH (08:34)
[2021-10-21] MEDS: OXcarbazepine 150 MG TABLET PO SCH ×2 (08:34→21:25)
[2021-10-21] MEDS: MIDODRINE HCL 2.5 MG TAB PO SCH ×3 (08:35→16:14)
[2021-10-21] MEDS: CEROVITE ADV FORMULA TAB PO SCH (08:35)
[2021-10-21] MEDS: ASCORBIC ACID 500 MG TAB PO SCH (08:36)
[2021-10-21] MEDS: ADVANCED PROBIOTIC 1250 MG CAPSULE PO SCH ×2 (08:36→16:14)
[2021-10-21] MEDS: CALCIUM ACETATE 667 MG CAP/TAB PO SCH ×2 (08:36→16:15)
[2021-10-21] MEDS: PANTOprazole 40 MG TAB PO SCH (08:36)
[2021-10-21] MEDS: lamoTRIgine 25 MG TAB PO SCH ×2 (08:37→21:26)
[2021-10-21] MEDS: ZINC SULFATE 220 MG CAPSULE PO SCH (08:37)
[2021-10-21] MEDS: ACETAMINOPHEN 500 MG TAB PO SCH ×3 (08:38→21:25)
[2021-10-21] MEDS ORDERED: LABETALOL HCL 200 MG TAB PO SCH (09:00)
[2021-10-21] MEDS ORDERED: VANCOMYCIN HCL 500 MG in DEXTROSE 5% 100 ML IV ONE (09:00)
--- NOTE | 2021-10-21 10:06 | XRay Report ---
SINGLE VIEW CHEST CLINICAL HISTORY: Pneumonia. FINDINGS: An AP, portable, upright chest radiograph is compared to study dated 10/20/2021. The examina tion is significantly degraded by portable technique and patient rotation. The heart is enlarged no ting atherosclerotic calcification of the thoracic aorta. There is pulmonary vascular congestion with evidence of interstitial edema. Volume loss in the left lung is similar to previous with left basila r consolidation. Small pleural effusions are suspected. No pneumothorax is seen. The skeletal structu res are osteopenic. Advanced arthritic changes seen in the right shoulder. Chronic deformity of the l eft proximal humerus is unchanged. IMPRESSION: 1. Cardiomegaly with evidence of congestive failure and pulmonary edema. No significant change from y esterday. 2. Dense airspace consolidation is again seen at the left lung base. 3. Suspect small pleural effusions. ACT 112: Negative or not required by law. Electronically signed by: Bean Krishna M.D. 10/21/2021 10:05 AM
--- NOTE | 2021-10-21 10:15 | Nephrology Progress Note ---
Date of Service October 21, 2021 Assessment & Plan (1) ESRD (end stage renal disease) on dialysis: (2) Anemia: (3) Silke-prosthetic femur fracture at tip of prosthesis: (4) Traumatic open wound of left lower leg: Plan: End-stage renal disease on hemodialysis Wednesday, Wednesday, Wednesday at [facility], admitted after a fall at home and periprosthetic femur fracture, being treated with a knee immobilizer for 6 to 8 weeks as she is high risk for any surgical complication considering extremely poor health status. Blood pressure relatively low, volume status, electrolyte acceptable. -- Plan for dialysis tomorrow -- Dose medications for GFR less than 10, avoid IV fluid. -- Epogen 30350 units given on 10/20/2021 -- continue on renal vitamin and phosphate binders with meal. Will follow Admission and Anticipated Discharge Date Admission Date: October 19, 2021 Subjective Kalyani was seen in the morning. She continues to have significant pain in left he and all over and requiring Dilaudid. Had dialysis yesterday, uneventful. Denies shortness of breath appetite okay but she has difficulty feeding herself because of decreased range of motion of her right upper extremity and shoulder. Review of Systems Review of Systems: Detailed review of system was otherwise negative except mentioned above. Physical Exam Constitutional: WD/WN, vitals as above + ill appearing and + frail appearing; no acute distress Respiratory: + cough; no respiratory distress Auscultation: + diminished lung sounds Cardiovascular: Rate/Rhythm: regular rate and regular rhythm Extremities: no edema Skin: + lesion, + ulcer and + skin atrophy Neurologic: no focal motor deficits and not confused Psychiatric: Orientation: alert and oriented x 3 Affect: euthymic affect Results & Data ([facility]) Vital Signs (Past 12 Hours) Vital Signs Temp Pulse Resp BP Pulse Ox 10/21/21 07:44 36.6 C 87 16 91/56 L 93 10/21/21 03:02 86/52 L 10/21/21 02:52 56 L 78/45 L 10/21/21 00:44 36.7 C 66 15 80/37 L 94 PG Care Time/CCT Total # of Minutes Spent Total Time Spent with Patient: Total time spent is greater than 50% in coordination of care (as documented) at patient's floor/unit and/or counseling patient: Coding Level of Care Code 23124 Subseq Hosp Care Lvl 2 Diagnoses ESRD (end stage renal disease) on dialysis N18.6; Z99.2 Anemia D64.9 Silke-prosthetic femur fracture at tip of prosthesis M97.8XXA; Z96.649 Traumatic open wound of left lower leg S81.802A
[2021-10-21] MEDS: DEXTROSE 5% 1,000 ML IV SCH (12:30)
[2021-10-21] MEDS: ONDANSETRON INJ 2 MG/ML 2 ML VIAL IV PRN (12:51)
--- NOTE | 2021-10-21 13:57 | Hospitalist Progress Note ---
Date of Service October 21, 2021 Assessment & Plan (1) Severe sepsis: Plan: Low BP, hypoglycemia, markedly elevated procalcitonin, etc all c/w severe sepsis. Sources - LLL pneumonia, UTI. Blood cultures no growth to date Urine culture pending. -Continue broad-spectrum antibiotics with Zosyn and vancomycin Repeat cbc am. Follow cultures. (2) Hypotension: Plan: Secondary to sepsis LR bolus 1 L x 1 given initially Continues with low blood pressures HOLD all anti-hypertensives, bumex, etc. Cortisol level checked & was adequate. Start midodrine 5mg TID for BP support; consider dose increase if necessary. Follow H/H on cbc. (3) LLL pneumonia: Plan: Suspected based on plain films as well as lung cuts from CT a/p. I cannot rule out that the enlarging pleural effusion on left isn't from trauma/rib fracture (ie hemorrhagic pleural effusion). However, repeat chest x- ray today is stable from previous She is at risk of gram negatives given frequent healthcare exposures. -Continue Zosyn vancomycin MRSA swabs negative so can likely discontinue vancomycin tomorrow (4) UTI (urinary tract infection): Plan: U/a suspicious for such. Continue abx as above. Follow urine culture (5) Pleural effusion, left: Plan: In light of rib fracture watch for worsening. At risk of hemothorax given recent trauma, Eliquis use, etc. (6) Left femoral shaft fracture: Plan: Appreciate orthopedics consultation. non-operative Rx advised. Knee immobilizer. Non-weight bearing status to the LLE. (7) Fracture of rib of left side: Plan: 7th rib could certainly be contributing to her left sided back pain. pain control. consider lidoderm patches. tylenol 1gm TID. (8) Atrial fibrillation: Plan: Rate controlled. Unfortunately will need to hold beta maria e due to hypotension. Eliquis on hold - trend CBC. Resume Eliquis if H/H remain stable and Left pleural effusion remains stable. (9) ESRD (end stage renal disease) on dialysis: Plan: Consulted [facility] nephrology for dialysis management Schedule - M/W/F AV fistula - TANNER (10) Osteomyelitis of fourth toe of right foot: Plan: Follows with [facility]. She is on amoxicillin prescribed by the wound care clinic presumably for this toe. Consult wound care nurse for ongoing chronic management of all of her skin issues. (11) Trigeminal neuralgia: Plan: Continue Lamictal and oxcarbazepine Send lamictal level (12) Anemia: Plan: Baseline Hb is high 9's CBC in am (13) Skin tear of left forearm without complication: Plan: Wound care consult Local wound care Add Vit C+Zinc to promote wound healing (14) Hypoglycemia: Plan: Suspect 2nd to #1 Start dextrose 5% at 30cc/hr to maintain euglycemia Cortisol level noted to be >20 (15) Hypokalemia: Plan: replace repeat level am replaced low mag (16) Hypomagnesemia: Plan: replace repeat level am (17) Cirrhosis of liver: Plan: noted on imaging etiology? LAMBERT? other? (18) Diabetes: Plan: HbA1c <4.3% in 09/2021 chronic anemia from ESRD could make a1c false but [id number] she is not on meds for DM and her BSGs are quite low in the face of sepsis Dextrose infusion for hypoglycemia (19) Amputation of left middle finger: Plan: 09/30/21 - [facility] [place] Orthopedics 2nd to complications from left arm AV fistula issues/occlusion? local wound care wound care consult (20) GERD (gastroesophageal reflux disease): Plan: PPI (21) DVT prophylaxis: Plan: resume Eliquis 2.5mg BID as H/H remain stable (22) Pressure ulcer: Plan: Pressure ulcer of sacral region POA, Unknown stage wound care consult Plan: attempted to call pt's spouse no answer left message on voicemail very complicated ill individual requiring complex care coordination and Rx of severe sepsis time 75 minutes Admission and Anticipated Discharge Date Admission Date: October 19, 2021 Subjective Patient reports pain is better controlled today. Denies chest pains or shortness of breath. She is eating and drinking Review of Systems Review of Systems: All systems reviewed & are unremarkable except as noted in HPI & below Physical Exam Constitutional: WD/WN, vitals as above Eyes: + anicteric sclerae ENMT: external ear and nose normal, oropharynx normal Neck: trachea midline, no thyromegaly Respiratory: normal respiratory effort, lungs clear to auscultation Cardiovascular: RRR, no murmur, no edema Chest (Breasts): Chest: normal inspection of chest Gastrointestinal (Abdomen): normal bowel sounds, soft, nontender, no hepatosplenomegaly Musculoskeletal: Extremities: + extremities abnormal to inspection (amputed left foot), no cyanosis and no clubbing Skin: no rashes, warm and dry Neurologic: moves all extremities and awake; no focal motor deficits Psychiatric: A+Ox3, euthymic affect Lymphatic: no lymphedema Results & Data Results & Data ([facility]) Vital Signs (Past 12 Hours) Vital Signs Temp Pulse Resp BP Pulse Ox 10/21/21 07:44 36.6 C 87 16 91/56 L 93 10/21/21 03:02 86/52 L 10/21/21 02:52 56 L 78/45 L Laboratory Results 10/21/21 10/21/21 10/21/21 Range/Units 20:35 17:12 12:11 WBC (4.8-10.8) K/uL RBC (4.2-5.4) M/uL Hgb (12.0-16.0) g/dL Hct (37-47) % MCV (80-100) fL MCH (25-34) pg MCHC (32-36) g/dL RDW Std Deviation (36.4-46.3) fL RDW Coeff of Alejandra (11.5-14.5) % Plt Count (130-400) K/uL MPV (7.4-10.4) fL Immature Gran % (Auto) % Neut % (Auto) % Lymph % (Auto) % Harrison % (Auto) % Eos % (Auto) % Baso % (Auto) % Neut # (Auto) (1.4-6.5) K/uL Lymph # (Auto) (1.2-3.4) K/uL Harrison # (Auto) (0.11-0.59) K/uL Eos # (Auto) (0-0.5) K/uL Baso # (Auto) (0-0.2) K/uL Immature Gran # (Auto) (0.00-0.02) K/uL Absolute Nucleated RBC (0-0) K/uL Nucleated RBC % (auto) % Sodium (136-145) mmol/L Potassium (3.5-5.1) mmol/L Chloride (98-107) mmol/L Carbon Dioxide (21-32) mmol/L Anion Gap (3-11) BUN (6-23) mg/dl Creatinine (0.6-1.2) mg/dl Est Cr Clr Drug Dosing ml/min Est GFR ( Amer) ml/min Est GFR (Non-Af Amer) ml/min BUN/Creatinine Ratio (10-20) Glucose (70-99(Fasting)) mg/dl POC Glucose 118 H 111 H 97 (70-99) mg/dl Calcium (8.5-10.1) mg/dl Magnesium (1.7-2.4) mg/dl Random Vancomycin (10-20) mcg/ml 10/21/21 10/21/21 10/21/21 Range/Units 08:12 06:18 06:18 WBC 8.43 (4.8-10.8) K/uL RBC 2.82 L (4.2-5.4) M/uL Hgb 9.3 L (12.0-16.0) g/dL Hct 27.8 L (37-47) % MCV 98.6 (80-100) fL MCH 33.0 (25-34) pg MCHC 33.5 (32-36) g/dL RDW Std Deviation 60.9 H (36.4-46.3) fL RDW Coeff of Alejandra 17.5 H (11.5-14.5) % Plt Count 155 (130-400) K/uL MPV 9.5 (7.4-10.4) fL Immature Gran % (Auto) 0.5 % Neut % (Auto) 77.4 % Lymph % (Auto) 12.8 % Harrison % (Auto) 8.4 % Eos % (Auto) 0.8 % Baso % (Auto) 0.1 % Neut # (Auto) 6.52 H (1.4-6.5) K/uL Lymph # (Auto) 1.08 L (1.2-3.4) K/uL Harrison # (Auto) 0.71 H (0.11-0.59) K/uL Eos # (Auto) 0.07 (0-0.5) K/uL Baso # (Auto) 0.01 (0-0.2) K/uL Immature Gran # (Auto) 0.04 H (0.00-0.02) K/uL Absolute Nucleated RBC 0.12 H (0-0) K/uL Nucleated RBC % (auto) 1.4 % Sodium 133 L (136-145) mmol/L Potassium 3.8 (3.5-5.1) mmol/L Chloride 100 (98-107) mmol/L Carbon Dioxide 27 (21-32) mmol/L Anion Gap 6 (3-11) BUN 7 (6-23) mg/dl Creatinine 2.17 H D (0.6-1.2) mg/dl Est Cr Clr Drug Dosing 16.4 ml/min Est GFR ( Amer) 24.5 ml/min Est GFR (Non-Af Amer) 21.1 ml/min BUN/Creatinine Ratio 3.2 L (10-20) Glucose 72 (70-99(Fasting)) mg/dl POC Glucose 85 (70-99) mg/dl Calcium 8.0 L (8.5-10.1) mg/dl Magnesium 1.7 (1.7-2.4) mg/dl Random Vancomycin (10-20) mcg/ml 10/21/21 Range/Units 06:18 WBC (4.8-10.8) K/uL RBC (4.2-5.4) M/uL Hgb (12.0-16.0) g/dL Hct (37-47) % MCV (80-100) fL MCH (25-34) pg MCHC (32-36) g/dL RDW Std Deviation (36.4-46.3) fL RDW Coeff of Alejandra (11.5-14.5) % Plt Count (130-400) K/uL MPV (7.4-10.4) fL Immature Gran % (Auto) % Neut % (Auto) % Lymph % (Auto) % Harrison % (Auto) % Eos % (Auto) % Baso % (Auto) % Neut # (Auto) (1.4-6.5) K/uL Lymph # (Auto) (1.2-3.4) K/uL Harrison # (Auto) (0.11-0.59) K/uL Eos # (Auto) (0-0.5) K/uL Baso # (Auto) (0-0.2) K/uL Immature Gran # (Auto) (0.00-0.02) K/uL Absolute Nucleated RBC (0-0) K/uL Nucleated RBC % (auto) % Sodium (136-145) mmol/L Potassium (3.5-5.1) mmol/L Chloride (98-107) mmol/L Carbon Dioxide (21-32) mmol/L Anion Gap (3-11) BUN (6-23) mg/dl Creatinine (0.6-1.2) mg/dl Est Cr Clr Drug Dosing ml/min Est GFR ( Amer) ml/min Est GFR (Non-Af Amer) ml/min BUN/Creatinine Ratio (10-20) Glucose (70-99(Fasting)) mg/dl POC Glucose (70-99) mg/dl Calcium (8.5-10.1) mg/dl Magnesium (1.7-2.4) mg/dl Random Vancomycin 11.1 (10-20) mcg/ml PG Care Time/CCT Total # of Minutes Spent Total Time Spent with Patient: Total time spent is greater than 50% in coordination of care (as documented) at patient's floor/unit and/or counseling patient: Coding Level of Care Code 84127 Subseq Hosp Care Lvl 3 Diagnoses Severe sepsis A41.9; R65.20 Hypotension I95.9 LLL pneumonia J18.9 UTI (urinary tract infection) N39.0 Pleural effusion, left J90 Left femoral shaft fracture S72.302A Fracture of rib of left side S22.32XA Atrial fibrillation I48.91 ESRD (end stage renal disease) on dialysis N18.6; Z99.2 Osteomyelitis of fourth toe of right foot M86.9 Trigeminal neuralgia G50.0 Anemia D64.9 Skin tear of left forearm without complication S51.812A Hypoglycemia E16.2 Hypokalemia E87.6 Hypomagnesemia E83.42 DVT prophylaxis Z29.9 Cirrhosis of liver K74.60 Diabetes E11.9 Chronic kidney disease stage: on chronic dialysis Diabetes mellitus complication detail: with chronic kidney disease 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
[2021-10-21] MEDS: NEPHROCAPS PO SCH (16:13)
[2021-10-21] MEDS: CETIRIZINE HCL 10 MG TABLET PO SCH (21:27)
[2021-10-22] MEDS: PIPERACILLIN/TAZOBACTAM 3.375 GM in DEXTROSE 5% 100 ML IV SCH ×2 (05:59→18:06)
[2021-10-22] MEDS: LIDOCAINE 5% 1 PATCH TD SCH (08:38)
[2021-10-22] MEDS: MIDODRINE HCL 2.5 MG TAB PO SCH (08:40)
[2021-10-22] MEDS: ACETAMINOPHEN 500 MG TAB PO SCH ×3 (08:41→20:40)
[2021-10-22] MEDS: CALCIUM ACETATE 667 MG CAP/TAB PO SCH ×2 (08:44→16:12)
[2021-10-22] MEDS: lamoTRIgine 25 MG TAB PO SCH ×2 (08:44→20:40)
[2021-10-22] MEDS: ADVANCED PROBIOTIC 1250 MG CAPSULE PO SCH ×2 (08:44→16:12)
[2021-10-22] MEDS: APIXABAN 2.5 MG TAB PO SCH ×2 (08:44→20:40)
[2021-10-22] MEDS: ASCORBIC ACID 500 MG TAB PO SCH (08:44)
[2021-10-22] MEDS: ZINC SULFATE 220 MG CAPSULE PO SCH (08:45)
[2021-10-22] MEDS: PANTOprazole 40 MG TAB PO SCH (08:45)
[2021-10-22] MEDS: OXcarbazepine 150 MG TABLET PO SCH ×2 (08:45→20:39)
[2021-10-22] MEDS: CEROVITE ADV FORMULA TAB PO SCH (08:45)
--- NOTE | 2021-10-22 10:28 | Nephrology Progress Note ---
Date of Service October 22, 2021 Assessment & Plan (1) ESRD (end stage renal disease) on dialysis: (2) Anemia: (3) Silke-prosthetic femur fracture at tip of prosthesis: (4) Traumatic open wound of left lower leg: Plan: End-stage renal disease on hemodialysis Wednesday, Wednesday, Wednesday at [facility], admitted after a fall at home and periprosthetic femur fracture, being treated with a knee immobilizer for 6 to 8 weeks as she is high risk for any surgical complication considering extremely poor health status. she was also noted to be septic with UTI, right food 4-0 osteomyelitis but blood culture so far negative. Initially was on vancomycin was discontinued and currently on Zosyn. Blood pressure relatively low, volume status, electrolyte acceptable. -- Plan for dialysis today as her regular schedule. -- Dose medications for GFR less than 10, avoid IV fluid. -- Epogen 04647 units given on 10/20/2021 -- continue on renal vitamin and phosphate binders with meal. Will follow Admission and Anticipated Discharge Date Admission Date: October 19, 2021 Subjective Kalyani was seen in the morning as she was getting ready for dialysis. She has been feeling poorly, c/o difficulty with moving her legs. Denies shortness of breath, appetite and p.o. intake has been poor. Review of Systems Review of Systems: Detailed review of system was otherwise negative except mentioned above. Physical Exam Constitutional: WD/WN, vitals as above + ill appearing and + frail appearing; no acute distress Respiratory: + cough; no respiratory distress Auscultation: + diminished lung sounds Cardiovascular: Rate/Rhythm: regular rate and regular rhythm Extremities: no edema Skin: + lesion, + ulcer and + skin atrophy Neurologic: no focal motor deficits and not confused Psychiatric: Orientation: alert and oriented x 3 Affect: euthymic affect Results & Data ([facility]) Vital Signs (Past 12 Hours) Vital Signs Temp Pulse Pulse Pulse Resp BP BP 10/22/21 10:00 70 85/35 L 10/22/21 09:30 91 H 93/48 L 10/22/21 09:15 36.5 C 72 71 10/22/21 07:45 36.5 C 72 12 96/60 L Pulse Ox 10/22/21 10:00 10/22/21 09:30 10/22/21 09:15 10/22/21 07:45 96 PG Care Time/CCT Total # of Minutes Spent Total Time Spent with Patient: Total time spent is greater than 50% in coordination of care (as documented) at patient's floor/unit and/or counseling patient: Coding Level of Care Code 55370 Subseq Hosp Care Lvl 3 Diagnoses ESRD (end stage renal disease) on dialysis N18.6; Z99.2 Anemia D64.9 Silke-prosthetic femur fracture at tip of prosthesis M97.8XXA; Z96.649 Traumatic open wound of left lower leg S81.802A
--- NOTE | 2021-10-22 11:37 | Hospitalist Progress Note ---
Date of Service October 22, 2021 Assessment & Plan (1) Severe sepsis: Plan: Low BP, hypoglycemia, markedly elevated procalcitonin, etc all c/w severe sepsis. Sources - LLL pneumonia, UTI, sacral wound Blood cultures no growth to date Urine culture w/ E. coli -Continue Zosyn but can now dc vancomycin as MRSA swab neg Repeat cbc am. Follow cultures. (2) Hypotension: Plan: Secondary to sepsis vs volume depletion hgb remains low but stable LR bolus 1 L x 1 given initially continue to hold all anti-hypertensives, bumex, etc. Cortisol level checked & was adequate. Increase midodrine to 10mg TID for BP support Nephro has decreased amount of fluid removed in HD (3) LLL pneumonia: Plan: Suspected based on plain films as well as lung cuts from CT a/p. I cannot rule out that the enlarging pleural effusion on left isn't from trauma/rib fracture (ie hemorrhagic pleural effusion). However, repeat chest x- ray is stable from previous She is at risk of gram negatives given frequent healthcare exposures. -Continue Zosyn MRSA swabs negative so can discontinue vancomycin Follow CXR to resolution (4) UTI (urinary tract infection): Plan: urine culture with E. coli continue ZOsyn (5) Pleural effusion, left: Plan: In light of rib fracture watch for worsening. At risk of hemothorax given recent trauma, Eliquis use, etc. (6) Left femoral shaft fracture: Plan: Appreciate orthopedics consultation. non-operative Rx advised. Knee immobilizer. Non-weight bearing status to the LLE. (7) Fracture of rib of left side: Plan: 7th rib could certainly be contributing to her left sided back pain. pain control. consider lidoderm patches. tylenol 1gm TID. (8) Atrial fibrillation: Plan: Rate controlled. Unfortunately will need to hold beta maria e due to hypotension. Resumed Eliquis as H/H remain stable and Left pleural effusion remains stable (9) ESRD (end stage renal disease) on dialysis: Plan: Consulted [facility] [place] nephrology for dialysis management Schedule - M/W/F AV fistula - TANNER (10) Osteomyelitis of fourth toe of right foot: Plan: Follows with [facility]. She is on amoxicillin prescribed by the wound care clinic presumably for this toe. Consult wound care nurse for ongoing chronic management of all of her skin issues. holding home amox while on ZOsyn (11) Trigeminal neuralgia: Plan: Continue Lamictal and oxcarbazepine Send lamictal level-pending (12) Anemia: Plan: Baseline Hb is high 9's CBC in am (13) Skin tear of left forearm without complication: Plan: Wound care consult Local wound care Add Vit C+Zinc to promote wound healing has extremely delicate skin, very edematous (14) Hypoglycemia: Plan: Suspect 2nd to sepsis dc dextrose 5% gtt to see if she can maintain normal glucose levels Cortisol level noted to be >20 (15) Hypokalemia: Plan: replete (16) Hypomagnesemia: Plan: replete (17) Cirrhosis of liver: Plan: noted on imaging etiology? LAMBERT? other? (18) Diabetes: Plan: HbA1c <4.3% in 09/2021 chronic anemia from ESRD could make a1c false but [id number] she is not on meds for DM and her BSGs are quite low in the face of sepsis Dextrose infusion for hypoglycemia now will be stopped (19) Amputation of left middle finger: Plan: 09/30/21 - [facility] Orthopedics 2nd to complications from left arm AV fistula issues/occlusion? local wound care wound care consult (20) GERD (gastroesophageal reflux disease): Plan: PPI (21) Pressure ulcer: Plan: Pressure ulcer of sacral region POA, Unknown stage wound care consult pending continue abx as RN reports foul smell (22) DVT prophylaxis: Plan: resume Eliquis 2.5mg BID as H/H remain stable Plan: called with no answer Called daughter and had lengthy discussion of pt's poor prognosis and multiple comorbidities Daughter states there is no way pt can safely stay at home. not able to give proper care Need to consult PT/OT, Case Man to find SNF placement and possible transition to hospice if continues to worsen CODE STATUS changed to DNR/DNI as per d/w pt given poor prognosis Admission and Anticipated Discharge Date Admission Date: October 19, 2021 Subjective Seen while getting dialysis in her room. BPs remain severely low at times but may be falsely low as she is mentating and denies lightheadedness. Does admit to feeling terrible and tells me that she thinks she is going to . Has no appetite. Denies CP or SOB, no abd pains. She is wanting to change her code status to DNR/DNI. She denies pain currently. We discussed the option of Hospice care when/if she decides she does not want to continue with hemodialysis. For now, she wants to continue with HD. I discussed her care with Nephrology Review of Systems Review of Systems: All systems reviewed & are unremarkable except as noted in HPI & below Physical Exam Constitutional: WD/WN, vitals as above + ill appearing Eyes: + anicteric sclerae Neck: trachea midline, no thyromegaly Respiratory: normal respiratory effort, lungs clear to auscultation Cardiovascular: RRR, no murmur, no edema Chest (Breasts): Chest: normal inspection of chest Gastrointestinal (Abdomen): normal bowel sounds, soft, nontender, no hepatosplenomegaly Musculoskeletal: Extremities: + extremities abnormal to inspection (amputed left foot), no cyanosis and no clubbing Skin: + ulcer (right 4th toe) Neurologic: moves all extremities and awake; no focal motor deficits Psychiatric: Orientation: alert and oriented x 3 Affect: + flat affect Lymphatic: no lymphedema Results & Data Results & Data ([facility]) Vital Signs (Past 12 Hours) Vital Signs Temp Pulse Pulse Pulse Resp BP BP 10/22/21 11:30 73 79/35 L 10/22/21 11:00 60 75/34 L 10/22/21 10:30 62 88/37 L 10/22/21 10:00 70 85/35 L 10/22/21 09:30 91 H 93/48 L 10/22/21 09:15 36.5 C 72 71 10/22/21 07:45 36.5 C 72 12 96/60 L Pulse Ox 10/22/21 11:30 10/22/21 11:00 10/22/21 10:30 10/22/21 10:00 10/22/21 09:30 10/22/21 09:15 10/22/21 07:45 96 Laboratory Results 10/22/21 10/22/21 Range/Units 08:05 05:41 POC Glucose 92 (70-99) mg/dl Random Vancomycin 13.9 (10-20) mcg/ml PG Care Time/CCT Total # of Minutes Spent Total Time Spent with Patient: Total time spent is greater than 50% in coordination of care (as documented) at patient's floor/unit and/or counseling patient: Coding Level of Care Code 30720 Subseq Hosp Care Lvl 3 Diagnoses Severe sepsis A41.9; R65.20 Hypotension I95.9 LLL pneumonia J18.9 UTI (urinary tract infection) N39.0 Pleural effusion, left J90 Left femoral shaft fracture S72.302A Fracture of rib of left side S22.32XA Atrial fibrillation I48.91 ESRD (end stage renal disease) on dialysis N18.6; Z99.2 Osteomyelitis of fourth toe of right foot M86.9 Trigeminal neuralgia G50.0 Anemia D64.9 Skin tear of left forearm without complication S51.812A Hypoglycemia E16.2 Hypokalemia E87.6 Hypomagnesemia E83.42 Cirrhosis of liver K74.60 Diabetes E11.9 Chronic kidney disease stage: on chronic dialysis Diabetes mellitus complication detail: with chronic kidney disease Diabetes mellitus senior care insulin use: without watermaster use Amputation of left middle finger S68.113A GERD (gastroesophageal reflux disease) K21.9 DVT prophylaxis Z29.9 Pressure ulcer L89.90 (1) Diabetes Chronic kidney disease stage: on chronic dialysis Diabetes mellitus complication detail: with chronic kidney disease Diabetes mellitus senior care insulin use: without senior care use
[2021-10-22] MEDS: MIDODRINE HCL 10 MG TAB PO SCH ×2 (12:27→16:11)
[2021-10-22] MEDS: NEPHROCAPS PO SCH (16:12)
[2021-10-22] MEDS: DEXTROSE 5% 1,000 ML IV SCH (19:13)
[2021-10-22] MEDS: CETIRIZINE HCL 10 MG TABLET PO SCH (20:40)
[2021-10-22] MEDS ORDERED: diphenhydrAMINE 50 MG/ML VIAL IV ONE (21:42)
[2021-10-22] MEDS ORDERED: oxyCODONE HCL IR 5 MG TAB (IMMEDIATE RELEASE) PO ONE (23:00)
[2021-10-23] MEDS ORDERED: oxyCODONE HCL IR 5 MG TAB (IMMEDIATE RELEASE) PO STA (02:31)
[2021-10-23] MEDS: PIPERACILLIN/TAZOBACTAM 3.375 GM in DEXTROSE 5% 100 ML IV SCH ×2 (05:02→17:14)
[2021-10-23] MEDS: ACETAMINOPHEN 500 MG TAB PO SCH ×3 (06:43→20:53)
[2021-10-23 07:35] LABS: BUN Creatinine Ratio 3.6 (10-20); Creatinine Clr Calc Pharmacy 13.9 ml/min; Est GFR (African American) 20.4 ml/min; Est GFR (Non-African American) 17.6 ml/min; Potassium 4.1 mmol/L (3.5-5.1)
[2021-10-23 08:25] LABS: Basophils # (auto) 0.01 K/uL (0-0.2); Basophils % (auto) 0.1 %; Eosinophils # (auto) 0.07 K/uL (0-0.5); Hematocrit (blood only) 28.4 % (37-47); Hemoglobin 9.6 g/dL (12.0-16.0); Immature Granulocytes # (auto) 0.04 K/uL (0.00-0.02); Immature Granulocytes % (auto) 0.5 %; Lymphocytes # (auto) 1.03 K/uL (1.2-3.4); Mean Corpuscular Hemoglobin 33.6 pg (25-34); Mean Corpuscular Hgb Conc 33.8 g/dL (32-36); Mean Corpuscular Volume 99.3 fL (80-100); Mean Platelet Volume 8.8 fL (7.4-10.4); Monocytes # (auto) 0.56 K/uL (0.11-0.59); Monocytes % (auto) 7.6 %; Neutrophils # (auto) 5.63 K/uL (1.4-6.5); Neutrophils % (auto) 76.8 %; Nucleated RBC # (auto) 0.14 K/uL (0-0); Platelet Count 145 K/uL (130-400); RDW Coefficient of Variation 18.8 % (11.5-14.5); RDW Standard Deviation 60.8 fL (36.4-46.3); Red Blood Count 2.86 M/uL (4.2-5.4); White Blood Count 7.34 K/uL (4.8-10.8)
[2021-10-23] MEDS: OXcarbazepine 150 MG TABLET PO SCH ×2 (09:15→20:53)
[2021-10-23] MEDS: PANTOprazole 40 MG TAB PO SCH (09:15)
[2021-10-23] MEDS: CEROVITE ADV FORMULA TAB PO SCH (09:15)
[2021-10-23] MEDS: MIDODRINE HCL 10 MG TAB PO SCH ×3 (09:15→16:00)
[2021-10-23] MEDS: ASCORBIC ACID 500 MG TAB PO SCH (09:15)
[2021-10-23] MEDS: lamoTRIgine 25 MG TAB PO SCH ×2 (09:15→20:53)
[2021-10-23] MEDS: APIXABAN 2.5 MG TAB PO SCH ×2 (09:15→20:54)
[2021-10-23] MEDS: ZINC SULFATE 220 MG CAPSULE PO SCH (09:15)
[2021-10-23] MEDS: CALCIUM ACETATE 667 MG CAP/TAB PO SCH ×2 (09:16→16:00)
[2021-10-23] MEDS: ADVANCED PROBIOTIC 1250 MG CAPSULE PO SCH ×2 (09:16→16:00)
[2021-10-23 09:17] LABS: Anisocytosis Present; Macrocytosis Present; Polychromasia 1+
[2021-10-23] MEDS: LIDOCAINE 5% 1 PATCH TD SCH (09:17)
--- NOTE | 2021-10-23 10:26 | Nephrology Progress Note ---
Date of Service October 23, 2021 Assessment & Plan (1) ESRD (end stage renal disease) on dialysis: (2) Anemia: (3) Silke-prosthetic femur fracture at tip of prosthesis: (4) Traumatic open wound of left lower leg: Plan: End-stage renal disease on hemodialysis Wednesday, Wednesday, Wednesday at [facility], admitted after a fall at home and periprosthetic femur fracture, being treated with a knee immobilizer for 6 to 8 weeks as she is high risk for any surgical complication considering extremely poor health status. she was also noted to be septic with UTI, right food 4-0 osteomyelitis but blood culture so far negative. Initially was on vancomycin was discontinued and currently on Zosyn. Blood pressure relatively low, volume status, electrolyte acceptable. overall she has been feeling poorly and clinically declining, yesterday code status changed to DNR and she is now thinking of stopping dialysis altogether. -- We discussed the clinical course in case she decided not to continue on dialysis. As she has been oligo aneuric probably main thing would be volume overload without dialysis causing respiratory distress. Explained that if she decides to discontinue dialysis we will arrange for home hospice with goals towards comfort care. Advised her to discuss with her and rest of the family and make the decision. -- Dose medications for GFR less than 10, avoid IV fluid. -- Epogen 40609 units given on 10/20/2021 -- continue on renal vitamin and phosphate binders with meal. Will follow Admission and Anticipated Discharge Date Admission Date: October 19, 2021 Prashanth Auguste was seen in the morning. She she continues to feel poorly, has pain all over and frustrated that she is not able to do anything at all. Appetite has been poor. She feels like she had enough and just do not feel like continuing with dialysis anymore. Blood pressure continues to be low. Review of Systems Review of Systems: Detailed review of system was otherwise negative except mentioned above. Physical Exam Constitutional: WD/WN, vitals as above + ill appearing and + frail appearing; no acute distress Respiratory: no respiratory distress Auscultation: + diminished lung sounds Cardiovascular: Rate/Rhythm: regular rate and regular rhythm Extremities: no edema Skin: + lesion, + ulcer and + skin atrophy Neurologic: no focal motor deficits and not confused Psychiatric: Orientation: alert and oriented x 3 Affect: euthymic affect Results & Data ([facility]) Vital Signs (Past 12 Hours) Vital Signs Temp Pulse Pulse Resp BP Pulse Ox 10/23/21 07:34 36.5 C 70 16 97/46 L 96 10/23/21 03:04 89 10/23/21 02:57 112 H 114/71 PG Care Time/CCT Total # of Minutes Spent Total Time Spent with Patient: Total time spent is greater than 50% in coordination of care (as documented) at patient's floor/unit and/or counseling patient: Coding Level of Care Code 36286 Subseq Hosp Care Lvl 3 Diagnoses ESRD (end stage renal disease) on dialysis N18.6; Z99.2 Anemia D64.9 Silke-prosthetic femur fracture at tip of prosthesis M97.8XXA; Z96.649 Traumatic open wound of left lower leg S81.802A
[2021-10-23] MEDS: oxyCODONE HCL IR 5 MG TAB (IMMEDIATE RELEASE) PO PRN ×3 (11:07→22:48)
--- NOTE | 2021-10-23 12:33 | Hospitalist Progress Note ---
Date of Service October 23, 2021 Assessment & Plan (1) Severe sepsis: Plan: Low BP, hypoglycemia, markedly elevated procalcitonin, etc all c/w severe sepsis. BPs slightly improved now with increased midodrine dose Sources - LLL pneumonia, UTI, sacral wound Blood cultures no growth to date Urine culture w/ E. coli -Continue Zosyn but have since dcd vancomycin as MRSA swab neg Repeat cbc am. Follow cultures. (2) Hypotension: Plan: Secondary to sepsis vs volume depletion hgb remains low but stable at 9 LR bolus 1 L x 1 given initially continue to hold all anti-hypertensives, bumex, etc. Cortisol level checked & was adequate. BPs slightly improved now with increased dose of midodrine to 10mg TID Nephro has decreased amount of fluid removed in HD Overall approaching end of life. Palliative discussions have been had and pt considering stopping HD, await family meeting and formal Palliative consult (3) LLL pneumonia: Plan: Suspected based on plain films as well as lung cuts from CT a/p. I cannot rule out that the enlarging pleural effusion on left isn't from trauma/rib fracture (ie hemorrhagic pleural effusion). However, repeat chest x- ray is stable from previous She is at risk of gram negatives given frequent healthcare exposures. -Continue Zosyn MRSA swabs negative so can discontinue vancomycin Follow CXR to resolution (4) UTI (urinary tract infection): Plan: urine culture with E. coli continue ZOsyn (5) Pleural effusion, left: Plan: In light of rib fracture watch for worsening. At risk of hemothorax given recent trauma, Eliquis use, etc. (6) Left femoral shaft fracture: Plan: Appreciate orthopedics consultation. non-operative Rx advised. Knee immobilizer. Non-weight bearing status to the LLE. severely limiting any residual mobility she had prior to admission will need mcc placement (7) Fracture of rib of left side: Plan: 7th rib could certainly be contributing to her left sided back pain. pain control. consider lidoderm patches. tylenol 1gm TID. (8) Atrial fibrillation: Plan: Rate controlled. Unfortunately will need to hold beta maria e due to hypotension. Resumed Eliquis as H/H remain stable and Left pleural effusion remains stable (9) ESRD (end stage renal disease) on dialysis: Plan: Consulted [facility] nephrology for dialysis management Schedule - M/W/F AV fistula - LUE Considering stopping HD, Palliative consult pending (10) Osteomyelitis of fourth toe of right foot: Plan: Follows with [facility]. She is on amoxicillin prescribed by the wound care clinic presumably for this toe. Consult wound care nurse for ongoing chronic management of all of her skin issues. holding home amox while on ZOsyn (11) Trigeminal neuralgia: Plan: Continue Lamictal and oxcarbazepine Send lamictal level-pending (12) Anemia: Plan: Baseline Hb is high 9's CBC in am (13) Skin tear of left forearm without complication: Plan: Wound care consult Local wound care Add Vit C+Zinc to promote wound healing has extremely delicate skin, very edematous (14) Hypoglycemia: Plan: Suspect 2nd to sepsis dc dextrose 5% gtt to see if she can maintain normal glucose levels Cortisol level noted to be >20 (15) Cirrhosis of liver: Plan: noted on imaging etiology? LAMBERT? other? (16) Diabetes: Plan: HbA1c <4.3% in 09/2021 chronic anemia from ESRD could make a1c false but [id number] she is not on meds for DM and her BSGs are quite low in the face of sepsis Dextrose infusion for hypoglycemia has since been stopped check glucose POC-for some reason, no further POC BSG done today-will d/w RN (17) Amputation of left middle finger: Plan: 09/30/21 - [facility] Orthopedics 2nd to complications from left arm AV fistula issues/occlusion? local wound care wound care consult (18) GERD (gastroesophageal reflux disease): Plan: PPI (19) Pressure ulcer: Plan: Pressure ulcer of sacral region POA, Unknown stage wound care consult pending continue abx as RN reports foul smell (20) DVT prophylaxis: Plan: resumed Eliquis 2.5mg BID as H/H remain stable Plan: Awaiting family meeting with Palliative to discuss possible transition to [facility] if decides to stop HD Called daughter and had lengthy discussion of pt's poor prognosis and multiple comorbidities on 10/22 Daughter states there is no way pt can safely stay at home. not able to give proper care consult PT/OT, Case Man to find SNF placement and possible transition to hospice if continues to worsen CODE STATUS changed to DNR/DNI as per d/w pt given poor prognosis Admission and Anticipated Discharge Date Admission Date: October 19, 2021 Subjective Pt had a lot of ain overnight and received oxycodone 5mg a couple of times. I gave her another dose this AM and she is still c/o a lot of pain in her thigh but is now very tired. She reportedly told the overnight RN that the only reason she is continuing on with HD is because she thinks her son wants her to. She confirmed that again with me today. SHe is also reporting nausea and no appetite. Denies abd pain Denies SOB. I discussed her care with Palliative Medicine to see about arranging a family meeting to discuss goals of care as pt seems to be leaning towards a comfort measures approach Review of Systems Review of Systems: All systems reviewed & are unremarkable except as noted in HPI & below Physical Exam Constitutional: WD/WN, vitals as above + ill appearing Eyes: + anicteric sclerae Neck: trachea midline, no thyromegaly Respiratory: normal respiratory effort and + cough Auscultation: + diminished lung sounds (bibasilar); no crackles and no wheezes Cardiovascular: RRR, no murmur, no edema Chest (Breasts): Chest: normal inspection of chest Gastrointestinal (Abdomen): normal bowel sounds, soft, nontender, no hepatosplenomegaly Musculoskeletal: Extremities: + extremities abnormal to inspection (amputed left foot), no cyanosis and no clubbing Skin: no rashes, warm and dry + ulcer (right 4th toe) numerous bruises, thin skin, skin tears on arms Neurologic: moves all extremities and awake; no focal motor deficits Psychiatric: Orientation: alert and oriented x 3 Affect: + flat affect Lymphatic: no lymphedema Results & Data Results & Data ([facility]) Vital Signs (Past 12 Hours) Vital Signs Temp Pulse Pulse Resp BP Pulse Ox 10/23/21 07:34 36.5 C 70 16 97/46 L 96 10/23/21 03:04 89 10/23/21 02:57 112 H 114/71 Laboratory Results 10/23/21 10/23/21 10/23/21 Range/Units 07:56 06:28 06:28 WBC 7.34 Cancelled RBC 2.86 L Cancelled Hgb 9.6 L Cancelled Hct 28.4 L Cancelled MCV 99.3 Cancelled MCH 33.6 Cancelled MCHC 33.8 Cancelled RDW Std Deviation 60.8 H Cancelled RDW Coeff of Alejandra 18.8 H Cancelled Plt Count 145 Cancelled MPV 8.8 Cancelled Immature Gran % (Auto) 0.5 Cancelled Neut % (Auto) 76.8 Cancelled Lymph % (Auto) 14.0 Cancelled [place] % (Auto) 7.6 Cancelled Eos % (Auto) 1.0 Cancelled Baso % (Auto) 0.1 Cancelled Neut # (Auto) 5.63 Cancelled Lymph # (Auto) 1.03 L Cancelled [place] # (Auto) 0.56 Cancelled Eos # (Auto) 0.07 Cancelled Baso # (Auto) 0.01 Cancelled Immature Gran # (Auto) 0.04 H Cancelled Absolute Nucleated RBC 0.14 H Cancelled Nucleated RBC % (auto) 2.0 Cancelled Neutrophils % (Manual) Cancelled Band Neutrophils % Cancelled Lymphocytes % (Manual) Cancelled Prolymphocyte % Cancelled Reactive Lymphs % (Man) Cancelled Monocytes % (Manual) Cancelled Eosinophils % (Manual) Cancelled Basophils % (Manual) Cancelled Metamyelocytes % (Man) Cancelled Myelocytes % (Man) Cancelled Promyelocytes % (Man) Cancelled Blast Cells % (Manual) Cancelled Plasma Cell % (Manual) Cancelled Other Cells % Cancelled Nucleated RBC % Cancelled Neutrophils # (Manual) Cancelled Band Neutrophils # Cancelled Total Absolute Neuts Cancelled Lymphocytes # (Manual) Cancelled Prolymphocyte # Cancelled Reactive Lymphs # Cancelled Total Abs Lymphocytes Cancelled Monocytes # (Manual) Cancelled Eosinophils # (Manual) Cancelled Basophils # (Manual) Cancelled Metamyelocytes # (Man) Cancelled Myelocytes # (Manual) Cancelled Promyelocytes # (Man) Cancelled Blast Cells # (Man) Cancelled Plasma Cell # (Manual) Cancelled Other Cells # Cancelled Nucleated RBCs # (Man) Cancelled Hypersegmented Neuts Cancelled Hyposegmented Neuts Cancelled Hypogranular Neuts Cancelled Large Granular Lymphs Cancelled # Lrg Granular Lymphs Cancelled Hairy Cells Cancelled Smudge Cells Cancelled Toxic Granulation Cancelled Toxic Vacuolation Cancelled Dohle Bodies Cancelled Ondina Rods Cancelled Platelet Estimate Cancelled Hypogranular Platelets Cancelled Clumped Platelets Cancelled Giant Platelets Cancelled Platelet Satelliting Cancelled RBC Morphology Cancelled Polychromasia 1+ Cancelled Hypochromasia Cancelled Poikilocytosis Cancelled Basophilic Stippling Cancelled Anisocytosis Present Cancelled Microcytosis Cancelled Macrocytosis Present Cancelled Spherocytes Cancelled Pappenheimer Bodies Cancelled Sickle Cells Cancelled Target Cells Cancelled Tear Drop Cells Cancelled Ovalocytes Cancelled Stomatocytes Cancelled Zavaleta-P[place] Bodies Cancelled Echinocytes Cancelled Acanthocytes (Spur) Cancelled Rouleaux Cancelled RBC Agglutinates Cancelled Schistocytes Cancelled RBC Morph Comment Cancelled Sezary Cell Cancelled Sodium 132 L (136-145) mmol/L Potassium 4.1 (3.5-5.1) mmol/L Chloride 98 (98-107) mmol/L Carbon Dioxide 26 (21-32) mmol/L Anion Gap 8 (3-11) BUN 9 (6-23) mg/dl Creatinine 2.52 H (0.6-1.2) mg/dl Est Cr Clr Drug Dosing 13.9 ml/min Est GFR ( Amer) 20.4 ml/min Est GFR (Non-Af Amer) 17.6 ml/min BUN/Creatinine Ratio 3.6 L (10-20) Glucose 70 (70-99(Fasting)) mg/dl Calcium 8.0 L (8.5-10.1) mg/dl PG Care Time/CCT Total # of Minutes Spent Total Time Spent with Patient: Total time spent is greater than 50% in coordination of care (as documented) at patient's floor/unit and/or counseling patient: Coding Level of Care Code 76965 Subseq Hosp Care Lvl 3 Diagnoses Severe sepsis A41.9; R65.20 Hypotension I95.9 LLL pneumonia J18.9 UTI (urinary tract infection) N39.0 Pleural effusion, left J90 Left femoral shaft fracture S72.302A Fracture of rib of left side S22.32XA Atrial fibrillation I48.91 ESRD (end stage renal disease) on dialysis N18.6; Z99.2 Osteomyelitis of fourth toe of right foot M86.9 Trigeminal neuralgia G50.0 Anemia D64.9 Skin tear of left forearm without complication S51.812A Hypoglycemia E16.2 Cirrhosis of liver K74.60 Diabetes E11.9 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
[2021-10-23] MEDS ORDERED: DEXTROSE 50% 50 ML SYRINGE IV PRN (12:42)
[2021-10-23] MEDS ORDERED: GLUCAGON FOR INJ 1 MG VIAL SQ PRN (12:42)
[2021-10-23] MEDS ORDERED: GLUCOSE 10 TABS/TUBE PO PRN (12:42)
[2021-10-23] MEDS ORDERED: CARBOHYDRATES FOR HYPOGLYCEMIA PO PRN (12:42)
[2021-10-23] MEDS ORDERED: GLUCOSE 40% GEL 15 GM TUBE PO PRN (12:42)
[2021-10-23] MEDS: ONDANSETRON INJ 2 MG/ML 2 ML VIAL IV PRN ×2 (12:56→17:19)
--- NOTE | 2021-10-23 13:18 | Palliative Care Consultation ---
Date of Consultation October 23, 2021 Assessment & Plan (1) Pain: Appears to be relieved with prn oxycodone. (2) Palliative care encounter: I talked with Mrs. Diaz about my role in helping her make decisions regarding her care. She is lethargic and has difficulty answering questions. She indicated that I should discuss this with her family. I then spoke to her daughter, Aleah Lopez, who is her POA. Aleah recognizes that she has declined and is seriously ill. She is concerned that her father would not be able to care for Kalyani at home. She tells me that Kalyani had asked her last night what the family decided about her care last night and Aleah would prefer that Kalyani make decisions if able. Though she is POA, she would defer decision making to her father. Unable to meet with Mr. Diaz. Discussed with Dr. Shields. Family meeting plan jayy for 1300 tomorrow. (3) Severe sepsis: (4) LLL pneumonia: (5) Left femoral shaft fracture: (6) Gangrene of finger of left hand: (7) ESRD (end stage renal disease) on dialysis: History of Present Illness Reason for Consultation: goals of care Requesting Physician: Dr. Shields Attending Physician: Aracely Shields MD History of Present Illness 76 yo lady with ESRD on hemodialysis and history of diabetes, afib and peripheral artery disease. She has had previous amputations with current gangrenous finger on left hand. She is being treated for LLL pneumonia and sep sis. She also has a traumatic left femoral shaft fracture. She is not a candidate for surgical intervention. During her hospitalization she has been hypotensive on dialysis and is being managed with midrodrine. She has been at home, cared for by her , who is not able to manage her care in her current state. We have been consulted to assist with goals of care. Mrs. Diaz is somnolent and moaning. She answers yes when asked if having pain. "My finger hurts really bad". She did just receive a dose of oxycodone about 30 minutes prior to my visit. She answers some yes or no questions but is not able to participate in goals of care discussion. I asked her if she would like me to discuss this with her family and she replied "Yes". Allergies Allergy/AdvReac Type Severity Reaction Status Date / Time simvastatin Allergy Mild "did not Verified 10/16/21 11:05 feel well while taking", legs hurt metformin Allergy Unknown does not Verified 10/16/21 11:05 remember ANGEL Inhibitors AdvReac Mild Cough Verified 10/16/21 11:05 homatropine AdvReac Mild Nausea Verified 10/16/21 11:05 [From Hycodan (with homatropin)] oxycodone AdvReac Mild Nausea Verified 10/16/21 11:05 pioglitazone AdvReac Mild Nausea Verified 10/16/21 11:05 rosiglitazone AdvReac Mild Nausea Verified 10/16/21 11:05 Myxxvmz-KNQ-XhO Reductase AdvReac Mild LEGS HURT Verified 10/16/21 11:05 Inhibitor [Xxxwcof-Rql-Juq Reductase Inhibitor] suture AdvReac Mild Catgut - Verified 10/16/21 11:05 slow healing, inflammed tissue escitalopram AdvReac Unknown Unknown Verified 10/16/21 11:05 Home Medications Medication Instructions Recorded Confirmed Type cetirizine 10 mg tablet (Zyrtec) 10 mg PO QPM 07/07/18 10/19/21 History vit B complx, C-iron 8 mg-folic 2 tab PO QDD 12/19/18 10/19/21 History acid 800 mcg-D3 1,000 unit-zinc tablet (ProRenal) biotin 1 mg capsule 1 mg PO BID cap 02/01/19 10/19/21 History lactobacillus combination no.4 3 3,000 mmu cells PO BIDM cap 02/01/19 10/19/21 History billion cell capsule (Probiotic) calcium acetate(phosphat bind) 667 667 mg PO BID cap 03/12/20 10/19/21 History mg capsule bumetanide 2 mg tablet 2 mg PO BID #180 tab 06/11/20 10/19/21 Rx vitamins A,C,A-xqia-idzcvs 14,320 1 cap PO BID 10/10/20 10/19/21 History unit-226 mg-200 unit capsule (PreserVision AREDS) diphenhydramine 25 1 tab PO HS 02/04/21 10/19/21 History mg-acetaminophen 500 mg tablet (Tylenol PM Extra Strength) loperamide 2 mg capsule (Imodium 2 mg PO UD PRN 02/21/21 10/19/21 History A-D) aloe vera 1 applic TOPICAL WK 05/08/21 10/19/21 History labetalol 200 mg tablet See Rx Instructions .ROUTE 05/09/21 10/19/21 Rx .COMPLEX #230 tablet lamotrigine 25 mg tablet (Lamictal) 25 mg PO BID #60 tab 07/03/21 10/19/21 Rx oxcarbazepine 300 mg tablet 150 - 300 mg PO .COMPLEX 30 Days 07/03/21 10/19/21 Rx (Trileptal) #45 tab apixaban 2.5 mg tablet (Eliquis) 2.5 mg PO BID 08/14/21 10/19/21 History hydrocodone 5 mg-acetaminophen 325 1 tab PO TID #90 tab 09/22/21 10/19/21 Rx mg tablet omeprazole 40 mg capsule,delayed 40 mg PO QAM #90 cap 09/29/21 10/19/21 Rx release amoxicillin 500 mg capsule 500 mg PO tid #42 cap 10/09/21 10/19/21 Rx promethazine 25 mg tablet 25 mg PO UD PRN #90 tab 10/09/21 10/19/21 Rx benzonatate 100 mg capsule 100 mg PO TID PRN #30 cap 10/16/21 10/19/21 Rx lidocaine-prilocaine 2.5 %-2.5 % See Rx Instructions .ROUTE .COMPLEX 10/19/21 10/19/21 History topical cream Patient History Medical History Anemia Chronic- Hgb 8.2-10.0 for past year Asymptomatic bilateral carotid artery stenosis Atherosclerosis without hemodynamically significant stenosis in the carotid arteries per 06/09/18 carotid doppler Atrial fibrillation On Eliquis- no cardioversion, follows with PCP. PT REPORTS HX AFIB ONE TIME WHILE IN HOSPITAL FOLLOWS DR HARPER Broken arm [id number] SURGERY, states she can not have it fixed due to fistula C. difficile colitis hx (2019) does have chronic diarrhea (r/t removal of gallbladder, per pt). Chronic pain Cirrhosis of liver Diabetes Hx of Type 2 IDDM -- no medications currently since placed on diaylsis. Diabetic nephropathy Disc degeneration, lumbar Encounter for management of wound VAC WOUND VAC LEFT FOOT , REASON FOR CURRENT ANTIBIOTICS PER PT End stage renal disease DIALYSIS M/W/F [place] LEFT ARM FISTULA Erosive (osteo)arthritis Fractured pelvis jul 31, 2021- came to ER , tested for Covid- came back positive- asymptomatic; hospitalized for approx week per patient Gangrene LEFT MIDDLE FINGER, HAS HAD FOR 9 MONTHS GERD (gastroesophageal reflux disease) Gout hx Hiatal hernia HTN (hypertension) PT REPORTS BP HAS BEEN LOW LATELY Hyperlipidemia Left ventricular hypertrophy Moderate/concentric per 05/2020 ECHO- 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 Usually stable on Lamictal and oxcarbazepine. 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 Family History Daughter Breast cancer Unknown Emphysema, unspecified Family/Other Family history of diabetes mellitus NEPHEW Other Family history non-contributory No family history of adverse response to anesthesia Social History Smoking Status: Never smoker Second Hand Exposure: No; Hx Alcohol Use: No Hx Substance Use: No Preferred Language: Pashto Communication Ability: Effective Visual Impairment: No Limitations Data Analytics Architect Required: No Beliefs That Will Affect Care: None marital status: Current Living Situation: Spouse Current Living Situation Comment: patient lives at home with current occupational status: retired How many Children do You have: 2 Other Information That Helps Us Care for You: No Feels Safe at Home: Yes Safety Concerns: Feels Safe At This Time caffeine: Yes Seatbelt Use: always Assistive Devices: Walker Review of Systems Review of Systems: [place] Symptom Assessment Score Pain 2/3 Dyspnea 0/3 Anxiety 0/3 Fatigue 3/3 Nausea 0/3 Drowsiness 2/3 Palliative Performance Score 30% Results & Data ([facility]) Vital Signs (Past 12 Hours) Vital Signs Temp Pulse Pulse Resp BP Pulse Ox 10/23/21 07:34 97.7 F 70 16 97/46 L 96 10/23/21 03:04 89 10/23/21 02:57 112 H 114/71 PG Care Time/CCT Total # of Minutes Spent Total Time Spent: 60 Total Time Spent with Patient: Total time spent is greater than 50% in coordination of care (as documented) at patient's floor/unit and/or counseling patient: goals of care, coordination of care Coding Level of Care Code 10525 Initial Inpt Care Lvl 2 Diagnoses Pain R52 Palliative care encounter Z51.5 Severe sepsis A41.9; R65.20 LLL pneumonia J18.9 Left femoral shaft fracture S72.302A Gangrene of finger of left hand I96 ESRD (end stage renal disease) on dialysis N18.6; Z99.2
[2021-10-23] MEDS: NEPHROCAPS PO SCH (15:55)
[2021-10-23] MEDS: CETIRIZINE HCL 10 MG TABLET PO SCH (20:54)
[2021-10-23 22:07] LABS: Hepatitis BE Antibody Reactive; Hepatitis BE Antigen Nonreactive
[2021-10-24] MEDS: oxyCODONE HCL IR 5 MG TAB (IMMEDIATE RELEASE) PO PRN ×4 (03:04→17:48)
[2021-10-24] MEDS: PIPERACILLIN/TAZOBACTAM 3.375 GM in DEXTROSE 5% 100 ML IV SCH ×2 (05:05→17:47)
[2021-10-24] MEDS: ONDANSETRON INJ 2 MG/ML 2 ML VIAL IV PRN (08:00)
[2021-10-24] MEDS: MIDODRINE HCL 10 MG TAB PO SCH ×3 (08:00→17:47)
[2021-10-24] MEDS: ADVANCED PROBIOTIC 1250 MG CAPSULE PO SCH ×2 (08:00→17:47)
[2021-10-24] MEDS: ZINC SULFATE 220 MG CAPSULE PO SCH (08:00)
[2021-10-24] MEDS: APIXABAN 2.5 MG TAB PO SCH ×2 (08:00→23:41)
[2021-10-24] MEDS: CEROVITE ADV FORMULA TAB PO SCH (08:00)
[2021-10-24] MEDS: OXcarbazepine 150 MG TABLET PO SCH ×2 (08:01→23:41)
[2021-10-24] MEDS: LIDOCAINE 5% 1 PATCH TD SCH (08:01)
[2021-10-24] MEDS: lamoTRIgine 25 MG TAB PO SCH ×2 (08:01→23:41)
[2021-10-24] MEDS: PANTOprazole 40 MG TAB PO SCH (08:01)
[2021-10-24] MEDS: CALCIUM ACETATE 667 MG CAP/TAB PO SCH ×2 (08:01→17:47)
[2021-10-24] MEDS: ACETAMINOPHEN 500 MG TAB PO SCH ×3 (08:01→23:40)
[2021-10-24] MEDS: ASCORBIC ACID 500 MG TAB PO SCH (08:02)
--- NOTE | 2021-10-24 10:18 | Nephrology Progress Note ---
Date of Service October 24, 2021 Assessment & Plan (1) ESRD (end stage renal disease) on dialysis: (2) Anemia: (3) Silke-prosthetic femur fracture at tip of prosthesis: (4) Traumatic open wound of left lower leg: Plan: End-stage renal disease on hemodialysis Wednesday, Wednesday, Wednesday at [facility], admitted after a fall at home and periprosthetic femur fracture, being treated with a knee immobilizer for 6 to 8 weeks as she is high risk for any surgical complication considering extremely poor health status. She was also noted to be septic with UTI, multiple ischemic ulceration, on Zosyn. Blood pressure has been persistently low and overall she has been feeling poorly and clinically declining, code status changed to DNR. She became more and more lethargic and minimally responsive over last 24 hours, now considering stopping dialysis although she wanted to have dialysis this morning. We discussed the clinical course in case she decided not to continue on dialysis. As she has been oligo aneuric probably main thing would be volume overload without dialysis causing respiratory distress. She is leaning towards discontinue dialysis with plan for discharge with home hospice with goals towards comfort care. A family meeting arranged for this afternoon to make a final decision. -- will plan for dialysis this morning as per her wishes -- Dose medications for GFR less than 10, avoid IV fluid. -- Epogen 76368 units given on 10/20/2021 -- continue on renal vitamin and phosphate binders with meal. Will follow Admission and Anticipated Discharge Date Admission Date: October 19, 2021 Prashanth Auguste was seen and evaluated this morning. She seemed comfortable, not in any distress, but lethargic and barely responded to questions by opening eyes. blood pressure has been persistently low. Volume status and electrolyte acceptable. Review of Systems Review of Systems: Detailed review of system was not possible of because of patient's lethargy and less responsiveness. Physical Exam Constitutional: WD/WN, vitals as above + ill appearing, + frail appearing and + lethargic; no acute distress Respiratory: no respiratory distress Auscultation: + diminished lung sounds Cardiovascular: Rate/Rhythm: regular rate and regular rhythm Extremities: no edema Skin: + lesion, + ulcer and + skin atrophy Neurologic: + focal motor deficit lethargic and minimally responsive Psychiatric: Affect: euthymic affect Results & Data ([facility]) Vital Signs (Past 12 Hours) Vital Signs Temp Pulse Resp BP Pulse Ox 10/24/21 07:32 36.9 C 57 L 15 85/53 L 96 10/23/21 22:46 36.5 C 80 15 117/68 97 PG Care Time/CCT Total # of Minutes Spent Total Time Spent with Patient: Total time spent is greater than 50% in coordination of care (as documented) at patient's floor/unit and/or counseling patient: Coding Level of Care Code 95671 Subseq Hosp Care Lvl 3 Diagnoses ESRD (end stage renal disease) on dialysis N18.6; Z99.2 Anemia D64.9 Silke-prosthetic femur fracture at tip of prosthesis M97.8XXA; Z96.649 Traumatic open wound of left lower leg S81.802A
--- NOTE | 2021-10-24 12:08 | Palliative Care Progress Note ---
Date of Service October 24, 2021 Assessment & Plan (1) Pain: (2) Palliative care encounter: Plan: Met with Kalyani, her , daughter and son at bedside along with Dr. Shields. Kalyani responds at times and answers questions but in general has not been able to discuss goals of care and has deferred this to her family. Her tells me that she told him last night that she wanted to stop dialysis and go home. He is tearful but wants to honor her wishes. He and his daughter have both expressed concerns in the past about being able to manage her care at home. We discussed hospice care and the support available. He tells me that he cared for his mother at home with hospice in 2012. He understands hospice and the support available and feels that he would be able to manage her care with their support. Family is in agreement with this. Her son asked about prognosis which we discussed is likely a week or two. Dr. Shields was able to confirm with Kalyani during the meeting that this is her wish. Case management aware and working on plan. Mr. Diaz would like to have her home as soon as possible, hopefully tomorrow. Admission and Anticipated Discharge Date Admission Date: October 19, 2021 Subjective Kalyani is somnolent but arousable. She denies pain when asked. She nods when asked if comfortable. She has had 40 mg OME in oxycodone in the last 24 hours. Continues to be hypotensive with BP ranging from 112/58 to 85/53. Review of Systems Review of Systems: [place] Symptom Assessment Pain 0/3 Dyspnea 0/3 Drowsiness 2/3 Palliative Performance Score 30% Physical Exam Constitutional: + lethargic; no acute distress Respiratory: no labored breathing Musculoskeletal: left foot partial amputation Skin: vascular skin changes Results [facility]) Vital Signs (Past 12 Hours) Vital Signs Temp Pulse Resp BP Pulse Ox 10/24/21 07:32 98.4 F 57 L 15 85/53 L 96 PG Care Time/CCT Total # of Minutes Spent Total Time Spent: 40 Total Time Spent with Patient: Total time spent is greater than 50% in coordination of care (as documented) at patient's floor/unit and/or counseling patient goals of care, family meeting, hospice Coding Level of Care Code 09437 Subseq Hosp Care Lvl 3 Diagnoses Pain R52 Palliative care encounter Z51.5
--- NOTE | 2021-10-24 13:42 | Hospitalist Progress Note ---
Date of Service October 24, 2021 Assessment & Plan (1) Severe sepsis: Plan: Low BP, hypoglycemia, markedly elevated procalcitonin, etc all c/w severe sepsis. BPs slightly improved now with increased midodrine dose Sources - LLL pneumonia, UTI, sacral wound Blood cultures no growth to date Urine culture w/ E. coli -Continue Zosyn but have since dcd vancomycin as MRSA swab neg Repeat cbc am. Follow cultures. Will stop all antibiotics upon discharge as now going home with hospice (2) Hypotension: Plan: Secondary to sepsis vs volume depletion hgb remains low but stable at 9 LR bolus 1 L x 1 given initially continue to hold all anti-hypertensives, bumex, etc. Cortisol level checked & was adequate. BPs slightly improved now with increased dose of midodrine to 10mg TID Nephro has decreased amount of fluid removed in HD Overall approaching end of life. Palliative discussions have been had and now going home with hospice Will discontinue midodrine upon discharge (3) LLL pneumonia: Plan: Suspected based on plain films as well as lung cuts from CT a/p. I cannot rule out that the enlarging pleural effusion on left isn't from trauma/rib fracture (ie hemorrhagic pleural effusion). However, repeat chest x- ray is stable from previous She is at risk of gram negatives given frequent healthcare exposures. -Continue Zosyn but dc abx upon dc to home hospice MRSA swabs negative so discontinued vancomycin (4) UTI (urinary tract infection): Plan: urine culture with E. coli teated with ZOsyn (5) Pleural effusion, left: Plan: In light of rib fracture watch for worsening. At risk of hemothorax given recent trauma, Eliquis use, etc. (6) Left femoral shaft fracture: Plan: Appreciate orthopedics consultation. non-operative Rx advised. Knee immobilizer. Non-weight bearing status to the LLE. severely limiting any residual mobility she had prior to admission -continue oxycodone prn pain IV dilaudid for severe pain (7) Fracture of rib of left side: Plan: 7th rib could certainly be contributing to her left sided back pain. pain control. tylenol 1gm TID. (8) Atrial fibrillation: Plan: Rate controlled. hold beta maria e due to hypotension. Resumed Eliquis as H/H remain stable and Left pleural effusion remains stable Can dc Eliquis upon discharge (9) ESRD (end stage renal disease) on dialysis: Plan: Consulted [facility] for dialysis management Schedule - M/W/F AV fistula - [place] Now has decided to STOP HD after today's session and go home with hospice (10) Osteomyelitis of fourth toe of right foot: Plan: Follows with [facility]. She is on amoxicillin prescribed by the wound care clinic presumably for this toe. Consult wound care nurse for ongoing chronic management of all of her skin issues. holding home amox while on ZOsyn dc all abx upon discharge (11) Trigeminal neuralgia: Plan: Continue Lamictal and oxcarbazepine-can continue on hospice as used for pain control Send lamictal level-low (12) Anemia: Plan: Baseline Hb is high 9's no further labs needed on [employer] (13) Skin tear of left forearm without complication: Plan: Wound care consult Local wound care Added Vit C+Zinc to promote wound healing but can dc on hospice has extremely delicate skin, very edematous (14) Hypoglycemia: Plan: Suspect 2nd to sepsis Cortisol level noted to be >20 improved but not eating much at all now (15) Cirrhosis of liver: Plan: noted on imaging etiology? LAMBERT? no further workup needed (16) Diabetes: Plan: HbA1c <4.3% in 09/2021 chronic anemia from ESRD could make a1c false but [id number] she is not on meds for DM and her BSGs are quite low in the face of sepsis Dextrose infusion for hypoglycemia has since been stopped dc all glucose checks on hospice (17) Amputation of left middle finger: Plan: 09/30/21 - [facility] Orth[facility]ics 2nd to complications from left arm AV fistula issues/occlusion? local wound care wound care consult pain control on hospice (18) GERD (gastroesophageal reflux disease): Plan: PPI (19) Pressure ulcer: Plan: Pressure ulcer of sacral region POA, Unknown stage wound care consult pending continue abx as RN reports foul smell but dc abx on hospice (20) DVT prophylaxis: Plan: Eliquis 2.5mg BID Plan: Dispo-plan for dc to home with hospice tomorrow, discussed with Case Man. Palliative Med consult appreciated Had family meeting with , son, daughter, and patient on 10/24 and all in agreement for home with hospice GREGORIO Admission and Anticipated Discharge Date Admission Date: October 19, 2021 Subjective Pt much more lethargic today with higher dose of pain meds but reports pain is now much better controlled in her leg. Had a family meeting with Palliative, , son, and daughter in room. Pt did not participate much in conversation because of lethargy but all are now in agreement to go home with hospice as soon as possible. Pt does confirm she still wants to do HD today before going home as she wants to try to live 2 more weeks at home on hospice. Review of Systems Review of Systems: All systems reviewed & are unremarkable except as noted in HPI & below Physical Exam Constitutional: WD/WN, vitals as above + ill appearing Eyes: + anicteric sclerae Neck: trachea midline, no thyromegaly Respiratory: normal respiratory effort and + cough Auscultation: + diminished lung sounds (bibasilar); no crackles and no wheezes Cardiovascular: RRR, no murmur, no edema Chest (Breasts): Chest: normal inspection of chest Gastrointestinal (Abdomen): normal bowel sounds, soft, nontender, no hepatosplenomegaly Musculoskeletal: Extremities: + extremities abnormal to inspection (amputed left foot), no cyanosis and no clubbing Skin: + ulcer (right 4th toe) Neurologic: moves all extremities and awake; no focal motor deficits Psychiatric: Orientation: alert Affect: + flat affect Lymphatic: no lymphedema Results & Data Results & Data ([facility]) Vital Signs (Past 12 Hours) Vital Signs Temp Pulse Resp BP Pulse Ox 10/24/21 07:32 36.9 C 57 L 15 85/53 L 96 Laboratory Results 10/24/21 10/24/21 10/24/21 Range/Units 11:54 09:16 08:17 POC Glucose 86 79 (70-99) mg/dl Lamotrigine (4.0-18.0) mcg/mL Hep Bs Antigen Pending Hep Bs Ag Confirmation Pending Hep Bs Antibody, Quant Pending Hepatitis Be Antibody Hepatitis Be Antigen 10/23/21 10/23/21 10/20/21 Range/Units 20:49 17:05 08:14 POC Glucose 98 96 (70-99) mg/dl Lamotrigine (4.0-18.0) mcg/mL Hep Bs Antigen Hep Bs Ag Confirmation Hep Bs Antibody, Quant Hepatitis Be Antibody Reactive A Hepatitis Be Antigen Nonreactive 05/16/22 Range/Units 08:14 POC Glucose (70-99) mg/dl Lamotrigine 2.0 L (4.0-18.0) mcg/mL Hep Bs Antigen Hep Bs Ag Confirmation Hep Bs Antibody, Quant Hepatitis Be Antibody Hepatitis Be Antigen PG Care Time/CCT Total # of Minutes Spent Total Time Spent with Patient: Total time spent is greater than 50% in coordination of care (as documented) at patient's floor/unit and/or counseling patient: Coding Level of Care Code 72688 Subseq Hosp Care Lvl 2 Diagnoses Severe sepsis A41.9; R65.20 Hypotension I95.9 LLL pneumonia J18.9 UTI (urinary tract infection) N39.0 Pleural effusion, left J90 Left femoral shaft fracture S72.302A Fracture of rib of left side S22.32XA Atrial fibrillation I48.91 ESRD (end stage renal disease) on dialysis N18.6; Z99.2 Osteomyelitis of fourth toe of right foot M86.9 Trigeminal neuralgia G50.0 Anemia D64.9 Skin tear of left forearm without complication S51.812A Hypoglycemia E16.2 Cirrhosis of liver K74.60 Diabetes E11.9 Diabetes mellitus usp insulin use: without usp use Diabetes mellitus complication detail: with chronic kidney disease Chronic kidney disease stage: on chronic dialysis Amputation of left middle finger S68.113A GERD (gastroesophageal reflux disease) K21.9 Pressure ulcer L89.90 DVT prophylaxis Z29.9 (1) Diabetes Diabetes mellitus usp insulin use: without terminal make up operator use Diabetes mellitus complication detail: with chronic kidney disease Chronic kidney disease stage: on chronic dialysis
[2021-10-24] MEDS: NEPHROCAPS PO SCH (17:47)
[2021-10-24] MEDS: CETIRIZINE HCL 10 MG TABLET PO SCH (23:41)
[2021-10-25] MEDS: HYDROmorphone INJ 0.5 MG/0.5 ML SYR IV PRN ×2 (02:55→18:47)
[2021-10-25] MEDS ORDERED: HYDROmorphone INJ 0.5 MG/0.5 ML SYR IV STA (05:11)
[2021-10-25 08:10] LABS: HBSAG NON-REACTIVE (NON-REACTIVE); Hepatitis B Surface Ab, Quant 5 mIU/mL (> OR = 10)
[2021-10-25] MEDS: PIPERACILLIN/TAZOBACTAM 3.375 GM in DEXTROSE 5% 100 ML IV SCH (08:26)
[2021-10-25] MEDS: ADVANCED PROBIOTIC 1250 MG CAPSULE PO SCH ×2 (08:34→17:34)
[2021-10-25] MEDS: oxyCODONE HCL IR 5 MG TAB (IMMEDIATE RELEASE) PO PRN ×2 (08:35→17:41)
[2021-10-25] MEDS: MIDODRINE HCL 10 MG TAB PO SCH ×3 (08:35→17:41)
[2021-10-25] MEDS: lamoTRIgine 25 MG TAB PO SCH (09:47)
[2021-10-25] MEDS: LIDOCAINE 5% 1 PATCH TD SCH (09:48)
[2021-10-25] MEDS: OXcarbazepine 150 MG TABLET PO SCH (09:48)
[2021-10-25] MEDS: APIXABAN 2.5 MG TAB PO SCH (09:48)
[2021-10-25] MEDS: PANTOprazole 40 MG TAB PO SCH (09:48)
[2021-10-25] MEDS: ACETAMINOPHEN 500 MG TAB PO SCH ×2 (09:48→14:37)
[2021-10-25] MEDS: ZINC SULFATE 220 MG CAPSULE PO SCH (09:50)
[2021-10-25] MEDS: ASCORBIC ACID 500 MG TAB PO SCH (09:50)
[2021-10-25] MEDS: CALCIUM ACETATE 667 MG CAP/TAB PO SCH ×2 (09:50→17:34)
[2021-10-25] MEDS: CEROVITE ADV FORMULA TAB PO SCH (09:50)
--- NOTE | 2021-10-25 10:04 | Nephrology Progress Note ---
Date of Service October 25, 2021 Assessment & Plan (1) ESRD (end stage renal disease) on dialysis: (2) Anemia: (3) Silke-prosthetic femur fracture at tip of prosthesis: (4) Traumatic open wound of left lower leg: Plan: End-stage renal disease on hemodialysis Wednesday, Wednesday, Wednesday at [facility], admitted after a fall at home and periprosthetic femur fracture, being treated with a knee immobilizer for 6 to 8 weeks as she is high risk for any surgical complication considering extremely poor health status. She was also noted to be septic with UTI, multiple ischemic ulceration, on Zosyn. Blood pressure has been low and overall she has been doing poorly and palliative care was involved in had family meeting yesterday and decided to go home with hospice care as soon as possible. She had last dialysis yesterday for 2.5 hours with the hope that she can spend time with family at least for 2 weeks. -- no further dialysis as per patient's wishes, waiting for advancement for hospice care to be discharged. Will sign off. Admission and Anticipated Discharge Date Admission Date: October 19, 2021 Prashanth Auguste was seen and evaluated this morning. She Continues to be bothered by significant pain all over but denies any shortness of breath. Had 2.5 hours of dialysis yesterday but after that she had to discontinue because of pain. blood pressure Relatively stable. Review of Systems Review of Systems: Detailed review of system was not done Due to patient's condition. Physical Exam Constitutional: WD/WN, vitals as above + ill appearing, + frail appearing and + lethargic; no acute distress Respiratory: no respiratory distress Auscultation: + diminished lung sounds Cardiovascular: Rate/Rhythm: regular rate and regular rhythm Extremities: no edema Skin: + lesion, + ulcer and + skin atrophy Neurologic: + focal motor deficit lethargic and minimally responsive Psychiatric: Affect: euthymic affect Results & Data ([facility]) Vital Signs (Past 12 Hours) Vital Signs Temp Pulse Pulse Resp BP Pulse Ox 10/25/21 07:53 37 C 81 18 111/64 93 10/25/21 04:37 36.6 C 109 H 16 115/71 96 10/24/21 22:30 36.5 C 60 16 80/50 L 96 PG Care Time/CCT Total # of Minutes Spent Total Time Spent with Patient: Total time spent is greater than 50% in coordination of care (as documented) at patient's floor/unit and/or counseling patient: Coding Level of Care Code 67483 Subseq Hosp Care Lvl 2 Diagnoses ESRD (end stage renal disease) on dialysis N18.6; Z99.2 Anemia D64.9 Silke-prosthetic femur fracture at tip of prosthesis M97.8XXA; Z96.649 Traumatic open wound of left lower leg S81.802A
--- NOTE | 2021-10-25 10:16 | Discharge Summary ---
Date of Service October 25, 2021 Admission HPI Per Admitting Provider Kalyani Diaz is a 76 year old female who presents to the ER with brought in by and son. She reports they were getting her up to get her jeans on but her feet went out from under her. Slipped and fell down on to wheelchair and she heard something snap. She reports not being able to remember exactly what happened. She reports feeling well before this with no chest pain, shortness of breath or dizziness. No family members present at bedside and no answer on primary contact number for her therefore unable to get a collateral history at this time. In the ER Knee XR confirmed displaced distal left femoral fracture. Dr Alvarenga contacted and recommended admission under medicine with orthopedics to be consulted. Principal Diagnosis Left femur fracture, Septic shock, UTI, Pneumonia, ESRD on HD Discharge Exam Constitutional WD/WN, vitals as above + ill appearing Eyes + anicteric sclerae Neck trachea midline, no thyromegaly Respiratory normal respiratory effort and + cough Auscultation: + diminished lung sounds (bibasilar); no crackles and no wheezes Cardiovascular RRR, no murmur, no edema Chest (Breasts) Chest: normal inspection of chest Gastrointestinal (Abdomen) normal bowel sounds, soft, nontender, no hepatosplenomegaly Musculoskeletal Extremities: + extremities abnormal to inspection (amputed left foot), no cyanosis and no clubbing Skin + ulcer (right 4th toe) Neurologic moves all extremities and awake; no focal motor deficits Psychiatric Orientation: alert Affect: + flat affect Lymphatic no lymphedema Discharge Data Allergies Allergy/AdvReac Type Severity Reaction Status Date / Time simvastatin Allergy Mild "did not Verified 10/16/21 11:05 feel well while taking", legs hurt metformin Allergy Unknown does not Verified 10/16/21 11:05 remember ANGEL Inhibitors AdvReac Mild Cough Verified 10/16/21 11:05 homatropine AdvReac Mild Nausea Verified 10/16/21 11:05 [From Hycodan (with homatropin)] oxycodone AdvReac Mild Nausea Verified 10/16/21 11:05 pioglitazone AdvReac Mild Nausea Verified 10/16/21 11:05 rosiglitazone AdvReac Mild Nausea Verified 10/16/21 11:05 Yiccyqy-IHR-QlA Reductase AdvReac Mild LEGS HURT Verified 10/16/21 11:05 Inhibitor [Odmtnuu-Qfg-Aps Reductase Inhibitor] suture AdvReac Mild Catgut - Verified 10/16/21 11:05 slow healing, inflammed tissue escitalopram AdvReac Unknown Unknown Verified 10/16/21 11:05 Consultations 10/19/21 16:49 Consult Orthopedic Surgery Routine 10/19/21 16:50 ED Decision to Admit Stat 10/19/21 22:29 Consult Nephrology Routine 10/23/21 09:44 Consult Palliative Care Routine Ordered Studies 10/19/21 14:13 CT abd pelvis IV con only Stat CT cervical spine wo con Stat CT head/brain wo con Stat Hospital Course (1) Severe sepsis: Low BP, hypoglycemia, markedly elevated procalcitonin, etc all c/w severe sepsis. BPs slightly improved now with increased midodrine dose but will be dc-ing this on discharge due to going on PATIENT CLERICAL ASSISTANT Sources - LLL pneumonia, UTI, sacral wound Blood cultures no growth to date Urine culture w/ E. coli received Zosyn but have since dcd vancomycin as MRSA swab neg Will stop all antibiotics upon discharge as now going home with hospice (2) Hypotension: Secondary to sepsis vs volume depletion hgb remains low but stable at 9 LR bolus 1 L x 1 given initially held all anti-hypertensives, bumex, etc. Cortisol level checked & was adequate. BPs slightly improved now with increased dose of midodrine to 10mg TID Nephro has decreased amount of fluid removed in HD Overall approaching end of life. Palliative discussions have been had and now going home with hospice Will discontinue midodrine upon discharge (3) LLL pneumonia: Suspected based on plain films as well as lung cuts from CT a/p. I cannot rule out that the enlarging pleural effusion on left isn't from trauma/rib fracture (ie hemorrhagic pleural effusion). However, repeat chest x- ray is stable from previous She is at risk of gram negatives given frequent healthcare exposures. -received Zosyn but dc abx upon dc to home hospice MRSA swabs negative so discontinued vancomycin (4) UTI (urinary tract infection): urine culture with E. coli treated with ZOsyn (5) Pleural effusion, left: In light of rib fracture watch for worsening. At risk of hemothorax given recent trauma, Eliquis use, etc. (6) Left femoral shaft fracture: Appreciate orthopedics consultation. non-operative Rx advised. Knee immobilizer. Non-weight bearing status to the LLE. severely limiting any residual mobility she had prior to admission -continue oxycodone prn pain IV dilaudid for severe pain was given here (7) Fracture of rib of left side: 7th rib could certainly be contributing to her left sided back pain. pain control. tylenol 1gm TID. (8) Atrial fibrillation: Rate controlled. hold beta maria e due to hypotension. Resumed Eliquis as H/H remain stable and Left pleural effusion remains stable Can dc Eliquis upon discharge (9) ESRD (end stage renal disease) on dialysis: Consulted [facility] nephrology for dialysis management Schedule - M/W/F AV fistula - [place] Now has decided to STOP HD and go home with hospice oxycodone for pain and breathlessness, lorazepam as needed for anxiety or agitation on home hospice (10) Osteomyelitis of fourth toe of right foot: Follows with [facility]. She is on amoxicillin prescribed by the wound care clinic presumably for this toe. Consult wound care nurse for ongoing chronic management of all of her skin issues. holding home amox while on ZOsyn dc all abx upon discharge (11) Trigeminal neuralgia: Continue Lamictal and oxcarbazepine-can continue on hospice as used for pain control Send lamictal level-low (12) Anemia: Baseline Hb is high 9's no further labs needed on PATIENT CLERICAL ASSISTANT (13) Skin tear of left forearm without complication: Wound care consult Local wound care Added Vit C+Zinc to promote wound healing but can dc on hospice has extremely delicate skin, very edematous (14) Hypoglycemia: Suspect 2nd to sepsis Cortisol level noted to be >20 improved but not eating much at all now (15) Cirrhosis of liver: noted on imaging etiology? LAMBERT? no further workup needed (16) Diabetes: HbA1c <4.3% in 09/2021 chronic anemia from ESRD could make a1c false but [id number] she is not on meds for DM and her BSGs are quite low in the face of sepsis Dextrose infusion for hypoglycemia has since been stopped dc all glucose checks on hospice (17) Amputation of left middle finger: 09/30/21 - [facility] Orthopedics 2nd to complications from left arm AV fistula issues/occlusion? local wound care wound care consult pain control on hospice (18) GERD (gastroesophageal reflux disease): can continue PPI at home for comfort (19) Pressure ulcer: Pressure ulcer of sacral region POA, Unknown stage wound care consult pending continue abx as RN reports foul smell but dc abx on hospice (20) DVT prophylaxis: will now dc Eliquis 2.5mg BID once goes home on hospice Dispo-plan for dc to home with hospice today Palliative Med consult appreciated Had family meeting with , son, daughter, and patient on 10/24 and all in agreement for home with hospice GREGORIO Total Time Total Time Spent Total Time Spent (In Minutes): 35 min Discharge Plan Discharge Items Patient Disposition: Hospice - Home Reason For Visit: LEFT PERIPROSTETIC FEMORAL FRACTURE Discharge Diagnosis: End Stage Renal Disease, Femur fracture, Hypotension, UTI, Pneumonia, Sacral wound Condition on Discharge: Fair Activity: As commented below Lifting: None Bathing: No limitations Exercise/Sports: As tolerated Weightbearing: Left non-weightbearing Non-emergency contact: Primary Care Provider Call non-emergency contact if: you have any medication questions, your symptoms worsen, your pain is not controlled and your pain is worsening Follow-up/Referrals: Roderick Espino MD [Primary Care Provider] - (You do not need to follow up with Dr. Espino now that you are enrolled in home hospice.) Diet: Other - See Diet Comment Diet Comment: you can eat whatever you want for comfort Addtl Attending Provider Instructions: You were admitted for a left femur fracture and also were treated for multiple infections in your urine, pneumonia, and a sacral wound. You had very low blood pressures as well as severe pain. Because of all the hardships you have bravely faced and your desire to now focus on comfort, you have chosen to go home with Home Hospice. You can take oxycodone as needed for pain-it can be crushed and mixed with a bit of water and placed under the tongue if you have trouble swallowing. You can also take lorazepam as needed for anxiety or agitation. Your Home Hospice agency will help guide you on how and when to give these medications for comfort and help you if you have any issues once you get home. You can continue taking your two medications for trigeminal neuralgia as this helps with pain. But you can stop all your other medications at this time. You certainly should not take any of the blood pressure lowering medications or water pills. You can stop the Eliquis as well. It has been an honor taking care of you. Take care, Dr. Aracely Grubbs Envelope Adjuster Provider Instructions: ORTHOPEDIC INSTRUCTIONS Activity Recommendations: Nonweightbearing on left leg Keep knee immobilizer in place most of the time. May remove knee immobilizer to clean and shower. We will likely use the knee immobilizer for 6 to 8 weeks. That is pending on how the x-rays look. Follow-Up Visit: Follow-up with Dr. Peraza's PA (Estuardo Toro) in 2 weeks for x-rays. But now that you are on hospice, you do NOT need to go to his office to follow up. If you have any additional questions or concerns, Dr Peraza is usually in the office at the same time and will be available Please call to make an appointment for a time that works for you. Pending Studies at Discharge: No Stand-Alone Forms: My [facility] Medications and DC Order Prescriptions: New oxycodone 5 mg Tablet 5 - 10 mg PO Q4H PRN (Reason: pain or breathlessness) Qty: 20 RF: 0 lorazepam 1 mg tablet 1 mg PO TID PRN (Reason: anxiety or agitation) Qty: 7 RF: 0 Continued omeprazole 40 mg capsule,delayed release(DR/EC) 40 mg PO QAM Qty: 90 RF: 3 lamotrigine [Lamictal] 25 mg tablet 25 mg PO BID Qty: 60 RF: 11 Trileptal 300 mg tablet 150 - 300 mg PO .COMPLEX 30 Days Qty: 45 RF: 11 aloe vera Gel 1 applic TOPICAL WK RF: 0 Discontinued amoxicillin 500 mg capsule 500 mg PO tid Qty: 42 RF: 0 bumetanide 2 mg tablet 2 mg PO BID Qty: 180 RF: 1 labetalol 200 mg tablet See Rx Instructions .ROUTE .COMPLEX Qty: 230 RF: 2 hydrocodone-acetaminophen 5-325 mg tablet 1 tab PO TID Qty: 90 RF: 0 promethazine 25 mg tablet 25 mg PO UD PRN (Reason: Nausea) Qty: 90 RF: 3 benzonatate 100 mg capsule 100 mg PO TID PRN (Reason: cough) Qty: 30 RF: 2 biotin 1 mg capsule 1 mg PO BID RF: 0 ProRenal 8 mg iron-800 mcg-1,000 unit tablet 2 tab PO QDD RF: 0 cetirizine [Zyrtec] 10 mg Tablet 10 mg PO QPM RF: 0 Probiotic 3 billion cell capsule 3,000 mmu cells PO BIDM RF: 0 calcium acetate(phosphat bind) 667 mg capsule 667 mg PO BID RF: 0 loperamide [Imodium A-D] 2 mg capsule 2 mg PO UD PRN (Reason: Diarrhea) RF: 0 PreserVision AREDS [id number] Capsule 1 cap PO BID RF: 0 diphenhydramine-acetaminophen [Tylenol PM Extra Strength] 25-500 mg Tablet 1 tab PO HS RF: 0 Eliquis 2.5 mg tablet 2.5 mg PO BID RF: 0 lidocaine-prilocaine 2.5-2.5 % cream See Rx Instructions .ROUTE .COMPLEX RF: 0 Discharge Orders: Discharge Order (Routine); Ordered 10/25/21 Ordered By: Aracely Shields Admission Data Admit Date/Time: 10/19/21 17:55 Attending Provider: Aracely Shields Admit Provider: Tin Morris Primary Care Provider: Roderick Espino Other Providers: Estuardo Peraza ; Tin Morris ; José Whitley ; Damaris Jacobson ; [facility] Coding Level of Care Code D/C DAY MANAGEMENT >30 MINS Diagnoses Severe sepsis A41.9; R65.20 Hypotension I95.9 LLL pneumonia J18.9 UTI (urinary tract infection) N39.0 Pleural effusion, left J90 Left femoral shaft fracture S72.302A Fracture of rib of left side S22.32XA Atrial fibrillation I48.91 ESRD (end stage renal disease) on dialysis N18.6; Z99.2 Osteomyelitis of fourth toe of right foot M86.9 Trigeminal neuralgia G50.0 Anemia D64.9 Skin tear of left forearm without complication S51.812A Hypoglycemia E16.2 Cirrhosis of liver K74.60 Diabetes E11.9 Diabetes mellitus ferry terminal agent insulin use: without ferry terminal agent use Diabetes mellitus complication detail: with chronic kidney disease Chronic kidney disease stage: on chronic dialysis Amputation of left middle finger S68.113A GERD (gastroesophageal reflux disease) K21.9 Pressure ulcer L89.90 DVT prophylaxis Z29.9
[2021-10-25] MEDS: NEPHROCAPS PO SCH (16:08)
--- NOTE | 2021-10-25 17:07 | Hospitalist Progress Note ---
Date of Service October 25, 2021 Assessment & Plan (1) Severe sepsis: Plan: Low BP, hypoglycemia, markedly elevated procalcitonin, etc all c/w severe sepsis. 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 coli received Zosyn but have since dcd vancomycin as MRSA swab neg Will stop all antibiotics upon discharge as now going home with hospice (2) Hypotension: Plan: Secondary to sepsis vs volume depletion hgb remains low but stable at 9 LR bolus 1 L x 1 given initially held all anti-hypertensives, bumex, etc. Cortisol level checked & was adequate. BPs slightly improved now with increased dose of midodrine to 10mg TID Nephro has decreased amount of fluid removed in HD Overall approaching end of life. Palliative discussions have been had and now going home with hospice Will discontinue midodrine upon discharge (3) LLL pneumonia: Plan: Suspected based on plain films as well as lung cuts from CT a/p. I cannot rule out that the enlarging pleural effusion on left isn't from trauma/rib fracture (ie hemorrhagic pleural effusion). However, repeat chest x- ray is stable from previous She is at risk of gram negatives given frequent healthcare exposures. -received Zosyn but dc abx upon dc to home hospice MRSA swabs negative so discontinued vancomycin (4) UTI (urinary tract infection): Plan: urine culture with E. coli treated with ZOsyn (5) Pleural effusion, left: Plan: In light of rib fracture watch for worsening. At risk of hemothorax given recent trauma, Eliquis use, etc. (6) Left femoral shaft fracture: Plan: Appreciate orthopedics consultation. non-operative Rx advised. Knee immobilizer. Non-weight bearing status to the LLE. severely limiting any residual mobility she had prior to admission -continue oxycodone prn pain IV dilaudid for severe pain was given here (7) Fracture of rib of left side: Plan: 7th rib could certainly be contributing to her left sided back pain. pain control. tylenol 1gm TID. (8) Atrial fibrillation: Plan: Rate controlled. hold beta maria e due to hypotension. Resumed Eliquis as H/H remain stable and Left pleural effusion remains stable Can dc Eliquis upon discharge (9) ESRD (end stage renal disease) on dialysis: Plan: Consulted [facility] nephrology for dialysis management Schedule - M/W/F AV fistula - [place] Now has decided to STOP HD and go home with hospice oxycodone for pain and breathlessness, lorazepam as needed for anxiety or agitation on home hospice (10) Osteomyelitis of fourth toe of right foot: Plan: Follows with [facility]. She is on amoxicillin prescribed by the wound care clinic presumably for this toe. Consult wound care nurse for ongoing chronic management of all of her skin issues. 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 LAMBERT? no further workup needed (16) Diabetes: Plan: HbA1c <4.3% in 09/2021 chronic anemia from ESRD could make a1c false but [id number] she is not on meds for DM and her BSGs are quite low in the face of sepsis Dextrose infusion for hypoglycemia has since been stopped dc all glucose checks on hospice (17) Amputation of left middle finger: Plan: 09/30/21 - [facility] 2nd to complications from left arm AV fistula issues/occlusion? local wound care wound care consult pain control on hospice (18) GERD (gastroesophageal reflux disease): Plan: can continue PPI at home for comfort (19) Pressure ulcer: Plan: Pressure ulcer of sacral region POA, Unknown stage wound care consult pending continue abx as RN reports foul smell but dc abx on hospice (20) DVT prophylaxis: Plan: will now dc Eliquis 2.5mg BID once goes home on hospice Plan: Dispo-plan for dc to home with hospice today Palliative Med consult appreciated Had family meeting with , son, daughter, and patient on 5/20 and all in agreement for home with hospice GREGORIO Admission and Anticipated Discharge Date Admission Date: October 19, 2021 Physical Exam Constitutional: WD/WN, vitals as above + ill appearing Eyes: + anicteric sclerae ENMT: external ear and nose normal, oropharynx normal Neck: trachea midline, no thyromegaly Respiratory: normal respiratory effort and + cough Auscultation: + diminished lung sounds (bibasilar); no crackles and no wheezes Cardiovascular: RRR, no murmur, no edema Chest (Breasts): Chest: normal inspection of chest Gastrointestinal (Abdomen): normal bowel sounds, soft, nontender, no hepatosplenomegaly Musculoskeletal: Extremities: + extremities abnormal to inspection (amputed left foot), no cyanosis and no clubbing Skin: no rashes, warm and dry + ulcer (right 4th toe) Neurologic: moves all extremities and awake; no focal motor deficits Psychiatric: Orientation: alert Affect: + flat affect Lymphatic: no lymphedema Results & Data Results & Data ([facility]) Vital Signs (Past 12 Hours) Vital Signs Temp Pulse Pulse Resp BP Pulse Ox 10/25/21 12:41 68 121/68 10/25/21 07:53 37 C 81 18 111/64 93 PG Care Time/CCT Total # of Minutes Spent Total Time Spent with Patient: Total time spent is greater than 50% in coordination of care (as documented) at patient's floor/unit and/or counseling patient: Coding Diagnoses Severe sepsis A41.9; R65.20 Hypotension I95.9 LLL pneumonia J18.9 UTI (urinary tract infection) N39.0 Pleural effusion, left J90 Left femoral shaft fracture S72.302A Fracture of rib of left side S22.32XA Atrial fibrillation I48.91 ESRD (end stage renal disease) on dialysis N18.6; Z99.2 Osteomyelitis of fourth toe of right foot M86.9 Trigeminal neuralgia G50.0 Anemia D64.9 Skin tear of left forearm without complication S51.812A Hypoglycemia E16.2 Cirrhosis of liver K74.60 Diabetes E11.9 Diabetes mellitus senior care insulin use: without senior care use Diabetes mellitus complication detail: with chronic kidney disease Chronic kidney disease stage: on chronic dialysis Amputation of left middle finger S68.113A GERD (gastroesophageal reflux disease) K21.9 Pressure ulcer L89.90 DVT prophylaxis Z29.9 (1) Diabetes Diabetes mellitus director of women's services insulin use: without senior care use Diabetes mellitus complication detail: with chronic kidney disease Chronic kidney disease stage: on chronic dialysis
== END 2021-10-25 19:25 | disposition hospice, home (50) | DRG 533 ==
LOC: ED 13:52 → 3E 17:55 → SUATTDRO 17:55 → 3E 20:37
DX: G50.0 Trigeminal neuralgia; S22.32XA Fracture of one rib, left side, initial encounter for closed fracture; Z96.653 Presence of artificial knee joint, bilateral; Z88.8 Allergy status to other drugs, medicaments and biological substances; E11.649 Type 2 diabetes mellitus with hypoglycemia without coma; N18.6 End stage renal disease; J91.8 Pleural effusion in other conditions classified elsewhere; I12.0 Hypertensive chronic kidney disease with stage 5 chronic kidney disease or end stage renal disease; I27.20 Pulmonary hypertension, unspecified; E11.69 Type 2 diabetes mellitus with other specified complication; B96.20 Unspecified Escherichia coli [E. coli] as the cause of diseases classified elsewhere; R65.21 Severe sepsis with septic shock; E11.22 Type 2 diabetes mellitus with diabetic chronic kidney disease; S50.912A Unspecified superficial injury of left forearm, initial encounter; M86.9 Osteomyelitis, unspecified; K72.00 Acute and subacute hepatic failure without coma; I95.89 Other hypotension; J18.9 Pneumonia, unspecified organism; Z79.01 Long term (current) use of anticoagulants; K21.9 Gastro-esophageal reflux disease without esophagitis; S72.352A Displaced comminuted fracture of shaft of left femur, initial encounter for closed fracture; L89.150 Pressure ulcer of sacral region, unstageable; Z99.2 Dependence on renal dialysis; E11.51 Type 2 diabetes mellitus with diabetic peripheral angiopathy without gangrene; I48.91 Unspecified atrial fibrillation; Y92.009 Unspecified place in unspecified non-institutional (private) residence as the place of occurrence of the external cause; M97.12XA Periprosthetic fracture around internal prosthetic left knee joint, initial encounter; K74.60 Unspecified cirrhosis of liver; W18.09XA Striking against other object with subsequent fall, initial encounter; D64.9 Anemia, unspecified; Z51.5 Encounter for palliative care; Z66 Do not resuscitate; N39.0 Urinary tract infection, site not specified; A41.9 Sepsis, unspecified organism